=== PATIENT | male | born 1970 | race Hispanic/Latino ===

== ENCOUNTER 2019-06-23 13:40 | Inpatient (IN) | payer MEDICARE, OTHER ==
[~2019-06-23] VITALS: Ht 170.2 cm; Wt 107.3 kg
--- OUTSIDE RECORDS SUMMARY | 2019-06-23 13:42 | XMS REPORT | Clinical Summary ---
Author Author [facility] Organization [facility] Address Unknown Phone Unavailable Care Team Providers Care Insurance Examiner Name Role Phone Stanton Frazier MD PCP Allergies Comments Active Allergy Reactions Severity Noted Date Pt states he woke up combative after receiving Morphine Morphine Nausea And 05/25/2018 Vomiting, Other (See Comments) Hydrocodone-Acetaminophen Nausea And 05/26/2012 Vomiting Medications End Date Status Medication Sig Dispensed Refills Start Date Active aspirin 81 MG EC Take 81 mg by 0 tabletIndications: mouth daily. Awaiting organ transplant status Active amLODIPine (NORVASC) 10 Take by mouth 0 07/05/201 MG tablet daily . 8 Active aspirin-calcium carbonate Take 81 mg by 0 81 mg-300 mg calcium(777 mouth. mg) Tab Active aspirin 81 MG chewable Take 81 mg by 0 07/05/201 tablet mouth daily . 8 Active fluticasone (FLONASE) 50 by Nasal 0 mcg/actuation nasal spray route. 8 Active esomeprazole (NEXIUM) 40 Take 40 mg by 0 07/05/ MG capsule mouth daily . 8 Active sevelamer (RENVELA) 800 Take 3,200 mg 0 03/20/201 mg tablet by mouth 3 8 (three) times daily with meals . Active albuterol HFA (VENTOLIN Inhale 1 puff 0 HFA) 90 mcg/actuation by mouth via 8 inhaler inhaler every 6 (six) hours as needed . Active famotidine (PEPCID) 20 MG Take 20 mg by 0 tablet mouth once at 9 bedtime . Active levocetirizine (XYZAL) 5 Take by 0 11/30/ MG tablet mouth. 9 Active cholecalciferol (VITAMIN Take 1,000 0 D3) 1,000 unit tablet Units by 8 mouth daily . Active loratadine 10 mg Cap Take by mouth 0 daily . 8 Active fluticasone-vilanterol Inhale 1 puff 0 (BREO ELLIPTA) 100-25 by mouth via mcg/dose DsDv inhaler daily. Active folic acid-multivitamins Take 1 tablet 0 (B COMPLEX-VITAMIN by mouth C-FOLIC ACID) 0.8 mg Tab daily. tablet Active ranitidine (ZANTAC) 150 Take 150 mg 0 MG tablet by mouth nightly. Active calcium carbonate (TUMS) Take 3 0 500 mg chewable tablet tablets by mouth once at bedtime. 07/27/2018 Discontinued amLODIPine (NORVASC) 10 Take 10 mg by 0 MG tablet mouth nightly. 07/27/2018 Discontinued lisinopril Take 20 mg by 0 (PRINIVIL,ZESTRIL) 20 MG mouth 2 (two) tablet times daily . 07/27/2018 Discontinued cholecalciferol, vitamin Take 1 0 D3, 2,000 unit Cap capsule by mouth daily. 07/27/2018 Discontinued cloNIDine HCl (CATAPRES) Take 0.1 mg 0 0.1 MG tablet by mouth 2 (two) times daily . 02/01/2019 Discontinued sevelamer (RENVELA) 800 Take 3,200 mg 0 mg tablet by mouth 3 (three) times daily with meals . 02/01/2019 Discontinued acetaminophen (TYLENOL) Take 500 mg 0 500 MG tablet by mouth every 6 (six) hours as needed for Pain. 02/01/2019 Discontinued calcium carbonate (TUMS) Take 3 0 500 mg chewable tablet tablets by mouth nightly. 07/27/2018 Discontinued zolpidem (AMBIEN) 5 MG Take 5 mg by 0 tablet mouth every night as needed for Insomnia. 07/27/2018 Discontinued aspirin 325 MG Take 325 mg 0 tabletIndications: by mouth Hepatic cirrhosis, daily. unspecified hepatic cirrhosis type (HCC) 02/01/2019 Discontinued cholecalciferol, vitamin Take 1,000 0 D3, 1,000 unit Units by capsuleIndications: mouth daily. Awaiting organ transplant status 02/01/2019 Discontinued albuterol HFA (VENTOLIN Inhale 2 0 HFA) 90 mcg/actuation puffs by inhalerIndications: Acute mouth via Asthma Attack inhaler every 6 (six) hours as needed for Wheezing. 07/27/2018 Discontinued gemfibrozil (LOPID) 600 Take 600 mg 0 MG tabletIndications: by mouth 2 Awaiting organ transplant (two) times status daily. 02/01/2019 Discontinued folic acid/vit B complex Take by mouth 0 and C (RENAL VITAMIN daily. ORAL)Indications: Awaiting organ transplant status 02/01/2019 Discontinued fluticasone (FLONASE) 50 1 spray by 0 mcg/actuation nasal Nasal route sprayIndications: daily. Awaiting organ transplant status 02/01/2019 Discontinued loratadine (CLARITIN) 10 Take 10 mg by 0 mg tabletIndications: mouth daily. Awaiting organ transplant status 02/01/2019 Discontinued esomeprazole (NEXIUM) 40 Take 40 mg by 0 MG capsuleIndications: mouth daily. Awaiting organ transplant status 02/01/2019 Discontinued ranitidine HCl (ZANTAC Take by 0 ORAL) mouth. 02/01/2019 Discontinued pantoprazole (PROTONIX) Take 1 tablet 20 tablet 0 20 MG tablet (20 mg total) 8 by mouth daily. 12/17/2018 levoFLOXacin (LEVAQUIN) Take 1 tablet 10 tablet 0 500 MG tablet (500 mg 9 total) by mouth daily for 10 days. Active Problems Problem Noted Date Portal hypertension 04/09/2017 Foot abscess 04/09/2017 Awaiting organ transplant status 01/26/2017 Pre-transplant evaluation for chronic liver disease 05/01/2016 Last Assessment & Plan: He is an acceptable candidate for liver transplant. He will continue with further necessary imaging as indicated for liver transplant. Cancer screening 03/26/2016 Cirrhosis of liver 03/20/2016 Last Assessment & Plan: Cirrhosis diagnosis confirmed by liver biopsy. Likely etiology is NAFLD. MELD 21. Elevated liver enzymes 02/14/2016 Last Assessment & Plan: Patient has mixed hepatocellular and cholestatic pattern of injury. Likely etiology is fatty liver. A comprehensive work up for other etiologies of elevated liver enzymes is recommended. Since he will need clearance for kidney transplant, a liver biopsy will be needed for further assessment. Risks and benefits of the transjugular liver biopsy were reviewed. With splenomegaly, there is concern for more advanced liver disease such as cirrhosis so transhepatic pressure gradients can be done at the same time as the liver biopsy. Patient wishes to proceed. ESRD (end stage renal disease) on dialysis 02/14/2016 Last Assessment & Plan: ESRD secondary to diabetes. He is on HD since 06/2015 on MWF schedule. Will need a liver/kidney transplant combination. HTN (hypertension) 02/14/2016 Last Assessment & Plan: BP controlled on current regimen. 2 gram sodium diet restrictions reviewed. Continue follow up with PCP and Leadership Program Associate. Diabetes mellitus type 2 in obese 02/14/2016 Last Assessment & Plan: Diabetes complicated by ESRD, diabetic foot. Diabetes is a risk factor for fatty liver. Strict diabetes control is recommended. Used to be on insulin, not anymore since ESRD. Continue follow up with PCP. Immunity status testing 02/14/2016 Last Assessment & Plan: All patients with chronic liver disease, regardless of etiology, should be immunized to prevent hepatitis A and hepatitis B if they are not already immune. Serologies suggest no immunity against Hep B. Hep B c Ab was not found so will be added to work up today. If the hep B c Ab is negative, he will need to complete the 3rd dose of the vaccine series. If the hep B c Ab is positive, he will have already had 2 of the hep B vaccines and this should complete his vaccine series. Hep A IgG planned with labs today. NAFLD (nonalcoholic fatty liver disease) 02/14/2016 Last Assessment & Plan: NAFLD suspected based on laboratory data, risk factors for fatty liver and significant family history for fatty liver disease. Risk factor for NAFLD is obesity, diabetes and family history. Strict risk factor modification discussed with the patient. Pre-transplant evaluation for kidney transplant 02/14/2016 Last Assessment & Plan: Patient currently undergoing kidney transplant evaluation. He was referred to hepatology clinic for elevated liver enzyme. Transjugular liver biopsy with measurement of portal hemodynamics is recommended. Further recommendations will follow. Obesity 02/14/2016 Last Assessment & Plan: Body mass index is 32.91 kg/(m^2). Obesity is a risk factor for fatty liver. We recommended a 10% weight loss, which disproportionately decreases visceral fat and can improve hepatic steatosis and steatohepatitis. We recommended a modified Ariadna's diet, substituting vegetables for wheat, corn, potato or rice or foods made from the flours of these carbohydrates. Literature provided. Abnormal liver enzymes 02/14/2016 Abnormal liver diagnostic imaging 02/14/2016 Last Assessment & Plan: US showed normal liver, splenomegaly and no ascites. Patient platelet count is on low normal side. This can be seen in early cirrhosis. A CT scan with triple phase liver protocol for further work up is recommended. Encounters Care Team Description Date Type Vice AdmiralMadeline Tafoya RN Awaiting organ transplant status (Primary Dx); Hepatic cirrhosis, unspecified hepatic cirrhosis type, unspecified whether ascites present (HCC); Cancer screening; ESRD (end stage renal disease) on dialysis (HCC) 06/20/2019 Orders Only Transplant Hepatology Madeline Tafoya RN Follow-up 06/20/2019 Telephone Transplant Hepatology Willa Saunders Appointment (Called to schedule meld labs due now. Pt said he is going to find out if there is a lab close to him and call me back to get orders sent. Scheduled 10/25 clinic appt. wpt Itinerary mailed.) 06/16/2019 Telephone Transplant Hepatology Willa Saunders 06/16/2019 Telephone Transplant Hepatology Viktor Taylor MD Osteoporosis, unspecified osteoporosis type, unspecified pathological fracture presence; Awaiting organ transplant status 05/03/2019 Hospital Encounter Viktor Taylor MD Khaderi, Saira Aijaz, MD Awaiting organ transplant status (Primary Dx); Hepatic cirrhosis, unspecified hepatic cirrhosis type, unspecified whether ascites present (HCC); Portal hypertension (HCC); ESRD (end stage renal disease) on dialysis (HCC); Diabetes mellitus type 2 in obese (HCC); Immunity status testing; Class 2 obesity due to excess calories with body mass index (BMI) of 37.0 to 37.9 in adult, unspecified whether serious comorbidity present 05/03/2019 Follow-Up Transplant Hepatology Stanton Frazier II, MD 05/03/2019 Outside Orders Willa Saunders Appointment (Called to let pt know i've added bone density appt on 05/03 with the clinic appt. I was unable to leave a message voicemail not set up. Itinerary mailed.) 04/21/2019 Telephone Central Scheduling Madeline Tafoya RN Awaiting organ transplant status; Cirrhosis of liver without ascites, unspecified hepatic cirrhosis type (HCC) 03/28/2019 Orders Only Transplant Hepatology Willa Saunders Appointment (Called to schedule labs for meld update. Pt said he would call with dates but it would be in next few weeks because he has several dr's appts.) 03/09/2019 Telephone Transplant Hepatology Madeline Tafoya RN Osteoporosis, unspecified osteoporosis type, unspecified pathological fracture presence (Primary Dx); Awaiting organ transplant status 02/23/2019 Orders Only Transplant Hepatology Madeline Tafoya RN Follow-up 02/23/2019 Telephone Transplant Hepatology Chago Hernadez MD Awaiting organ transplant status; Cancer screening; Cirrhosis of liver without ascites, unspecified hepatic cirrhosis type (HCC) 02/01/2019 Hospital Radiology Encounter Chago Hernadez MD Claudia, Viktor Reeder MD Anemia, unspecified type (Primary Dx); Awaiting organ transplant status 02/01/2019 Follow-Up Transplant Hepatology Meenakshi Echavarria MA 02/01/2019 Abstract Hepatology Willa Saunders Appointment (Confirmed 02/01 appt w/pt.) 01/31/2019 Telephone Transplant Hepatology Willa Saunders Appointment (Scheduled 02/01 [facility] f/u appt in tx clinic, mri & Feghali appt @ 2 pm w.pt. Itinerary mailed.) 01/10/2019 Telephone Transplant Hepatology Madeline Tafoya RN Awaiting organ transplant status (Primary Dx); Cancer screening; Cirrhosis of liver without ascites, unspecified hepatic cirrhosis type (HCC) 01/03/2019 Orders Only Transplant Hepatology Madeline Tafoya RN Awaiting organ transplant status; Cancer screening; Cirrhosis of liver without ascites, unspecified hepatic cirrhosis type (HCC) 01/03/2019 Orders Only Transplant Hepatology Madeline Tafoya RN Awaiting organ transplant status (Primary Dx); Cancer screening; Cirrhosis of liver without ascites, unspecified hepatic cirrhosis type (HCC) 01/03/2019 Orders Only Transplant Hepatology Willa Saunders Appointment (Called to schedule labs for meld update. Pt said he would try and schedule appt tomorrow but he will call me back once appt is scheduled.) 12/27/2018 Telephone Transplant Hepatology Willa Saunders Appointment (Called to schedule meld labs due now. Pt said he recently moved and is unable to schedule transportation until new address is updated in transport [employer] computer. Pt will call if he is able to get labs this wk.) 12/20/2018 Telephone Transplant Hepatology Willa Saunders Appointment (Called to schedule labs for meld update pt said he would call me back he is going to try and get labs drawn when he get his dialysis.) 12/15/2018 Telephone Transplant Hepatology Yeison Collins MD Complication of vascular access for dialysis, initial encounter (Primary Dx); Essential hypertension; Cellulitis of right upper extremity; ESRD (end stage renal disease) (HCC) 12/07/2018 Emergency Emergency Medicine Daniella Odell MD Awaiting organ transplant status 12/07/2018 Hospital Radiology Encounter Daniella Odell MD Awaiting organ transplant status; Osteoporosis, unspecified osteoporosis type, unspecified pathological fracture presence 12/07/2018 Hospital Encounter Daniella Odell MD Jalal, Prasun Kumar, MD 12/07/2018 Follow-Up Transplant Hepatology 12/07/2018 Travel Madeline Tafoya RN Follow-up 12/06/2018 Telephone Transplant Hepatology Willa Saunders Appointment (Called to confirm 12/07 appts there was no answer and i was unable to leave message because voicemail is not set up.) 12/06/2018 Telephone Transplant Hepatology Daniella Odell MD 12/06/2018 Outside Orders Willa aSunders Appointment (Called to schedule labs for meld update due now unable to leave message voicemail not set up.) 11/18/2018 Telephone Transplant Hepatology Nargis Jaquez, AKILA Awaiting transplantation of kidney (Primary Dx) 11/13/2018 Orders Only Transplant Willa Saunders Appointment (Calling to schedule labs for meld update unable to leave message on voicemail.) 11/01/2018 Telephone Transplant Hepatology Willa Saunders Appointment (Called pt to schedule labs for meld update. Pt apologized for not getting his labs and said he would call [facility] to schedule appt this week and call me back with date.) 10/19/2018 Telephone Transplant Hepatology Willa Saunders Appointment (Called pt to schedule labs for meld update pt said he's not sure when he'll be able to go but he will call the morning before he goes to lab so that we can release lab orders.) 10/04/2018 Telephone Transplant Hepatology Willa Saunders Appointment (Called to schedule labs for meld update due now. Unable to leave voicemail.) 09/29/2018 Telephone Transplant Hepatology Willa Saunders 09/29/2018 Telephone Transplant Hepatology Willa Saunders Appointment (Calling to schedule labs for meld update due now. Voicemail not available.) 09/20/2018 Telephone Transplant Hepatology Willa Saunders Appointment (Scheduled 12/07 clinic, ct & bmds appts w/pt & 1:45 Dr Ferguson appt. Itinerary mailed.) 09/17/2018 Telephone Transplant Hepatology Willa Saunders Appointment (Calling to schedule meld labs due now & CT, echo, BMDS , appt with Dr. Ferguson and appt with liver team end Nov. Unable to leave message voicemail not set up.) 09/13/2018 Telephone Transplant Hepatology Willa Saunders Appointment (Pt called and said he has not been able to schedule his labs at [facility] he said he needs to schedule his appt online but is not able to do it. I asked pt to call and let me know when he schedules so i can release orders.) 08/30/2018 Telephone Transplant Hepatology Willa Saunders Appointment (Pt called and said he has not been able to schedule his labs at [facility] he said he needs to schedule his appt online but is not able to do it. I asked pt to call and let me know when he schedules so i can release orders.) 08/30/2018 Telephone Transplant Hepatology Willa Saunders Appointment (Called pt to schedule meld labs pt said he would go to [facility] on 08/26.) 08/23/2018 Telephone Transplant Hepatology Madeline Tafoya, AKILA Awaiting organ transplant status (Primary Dx); Osteoporosis, unspecified osteoporosis type, unspecified pathological fracture presence 08/15/2018 Orders Only Transplant Hepatology Nathaniel Barrientos Jr., MD Gastrointestinal hemorrhage, unspecified gastrointestinal hemorrhage type (Primary Dx); Anemia, unspecified type; Cirrhosis of liver without ascites, unspecified hepatic cirrhosis type (HCC); ESRD (end stage renal disease) on dialysis (HCC); Essential hypertension; Diabetes mellitus type 2 in obese (HCC) 07/27/2018 Emergency Emergency Medicine Viktor Taylor MD Mindikoglu, Ayse Leyla, MD MPH Cirrhosis of liver without ascites, unspecified hepatic cirrhosis type (HCC) (Primary Dx); Awaiting organ transplant status; NAFLD (nonalcoholic fatty liver disease); Hematochezia; Esophageal varices without bleeding, unspecified esophageal varices type (HCC); Screening for malignant neoplasm; ESRD on hemodialysis (HCC); Immunity status testing; Immunization counseling 07/27/2018 Follow-Up Transplant Hepatology Willa Saunders Appointment (Confirmed 07/27 appt w/pt.) 07/26/2018 Telephone Transplant Hepatology Stanton Frazier II, MD Awaiting organ transplant status 07/01/2018 Orders Only Lab Willa Saunders Appointment (Confirmed 07/01 lab appt w/pt.) 06/29/2018 Telephone Transplant Hepatology Willa Saunders Appointment (Called pt to confirm 07/01 lab appt (pt has feghali appt on that day) unable to leave message vm not set up.) 06/28/2018 Telephone Transplant Hepatology Willa Saunders Appointment (Scheduled 07/01 lab appt unable to contact patient voicemail not set up. Itinerary mailed to pt.) 06/25/2018 Telephone Transplant Hepatology Madeline Tafoya RN Awaiting organ transplant status (Primary Dx) 06/24/2018 Orders Only Transplant Hepatology after 06/22/2018 Immunizations Name Dates Previously Given Next Due Hepatitis A 08/26/2016 Hepatitis B 08/26/2016 Family History Medical History Relation Name Comments Diabetes Father Heart disease Father Liver disease Father Diabetes Mother Heart disease Mother Kidney disease Mother Relation Name Status Comments Father Mother Social History Date Tobacco Use Types Packs/Day Years Used Quit: 02/13/2006 Former Smoker Cigarettes Smokeless Tobacco: Never Used Tobacco Cessation: Counseling Given: No Alcohol Use Drinks/Week oz/Week Comments No States he quit drinking Sex Assigned at Date Recorded Not on file Industry Job Start Date Occupation Not on file Not on file Not on file Travel End Travel History Travel Start No recent travel history available. Last Filed Vital Signs Time Taken Vital Sign Reading 05/03/2019 8:27 AM CDT Blood Pressure 160/79 05/03/2019 8:27 AM CDT Pulse 76 05/03/2019 8:27 AM CDT Temperature 36.9 C (98.4 F) 05/03/2019 8:27 AM CDT Respiratory Rate 18 05/03/2019 8:27 AM CDT Oxygen Saturation 99% - Inhaled Oxygen - Concentration 05/03/2019 8:27 AM CDT Weight 107.6 kg (237 lb 4.8 oz) 05/03/2019 8:27 AM CDT Height 170.2 cm (5' 7") 05/03/2019 8:27 AM CDT Body Mass Index 37.17 Plan of Treatment Care Team Description Date Type Specialty 10/25/2019 Follow-Up Transplant Hepatology Health Maintenance Due Date Last Done Comments HEMOGLOBIN A1C 11/02/2019 05/03/2019, 05/25/2018, 12/11/2015 Procedures Comments Procedure Name Priority Date/Time Associated Diagnosis XR DXA BONE DENSITY STUDY Routine 05/03/2019 Osteoporosis, unspecified 10:15 AM CDT osteoporosis type, unspecified pathological fracture presence Awaiting organ transplant status CBC W/PLT COUNT & AUTO Routine 05/03/2019 Awaiting organ transplant DIFFERENTIAL 9:41 AM CDT status Hepatic cirrhosis, unspecified hepatic cirrhosis type, unspecified whether ascites present (HCC) LIPID PANEL Routine 05/03/2019 Awaiting organ transplant 9:41 AM CDT status Hepatic cirrhosis, unspecified hepatic cirrhosis type, unspecified whether ascites present (HCC) Diabetes mellitus type 2 in obese (HCC) Class 2 obesity due to excess calories with body mass index (BMI) of 37.0 to 37.9 in adult, unspecified whether serious comorbidity present HEMOGLOBIN A1C Routine 05/03/2019 Awaiting organ transplant 9:41 AM CDT status Hepatic cirrhosis, unspecified hepatic cirrhosis type, unspecified whether ascites present (HCC) Diabetes mellitus type 2 in obese (HCC) Class 2 obesity due to excess calories with body mass index (BMI) of 37.0 to 37.9 in adult, unspecified whether serious comorbidity present BILIRUBIN, DIRECT Routine 05/03/2019 Awaiting organ transplant 9:41 AM CDT status Hepatic cirrhosis, unspecified hepatic cirrhosis type, unspecified whether ascites present (HCC) PROTHROMBIN TIME/INR Routine 05/03/2019 Awaiting organ transplant 9:41 AM CDT status Hepatic cirrhosis, unspecified hepatic cirrhosis type, unspecified whether ascites present (HCC) CBC W/PLT COUNT & AUTO Routine 05/03/2019 Awaiting organ transplant DIFFERENTIAL 9:41 AM CDT status Hepatic cirrhosis, unspecified hepatic cirrhosis type, unspecified whether ascites present (HCC) COMPREHENSIVE METABOLIC Routine 05/03/2019 Awaiting organ transplant PANEL 9:41 AM CDT status Hepatic cirrhosis, unspecified hepatic cirrhosis type, unspecified whether ascites present (HCC) COMPREHENSIVE METABOLIC Routine 03/29/2019 Awaiting organ transplant PANEL 9:02 AM CDT status Cirrhosis of liver without ascites, unspecified hepatic cirrhosis type (HCC) CBC W/PLT COUNT & AUTO Routine 03/29/2019 Awaiting organ transplant DIFFERENTIAL 9:02 AM CDT status Cirrhosis of liver without ascites, unspecified hepatic cirrhosis type (HCC) PROTHROMBIN TIME/INR Routine 03/29/2019 Awaiting organ transplant 9:02 AM CDT status Cirrhosis of liver without ascites, unspecified hepatic cirrhosis type (HCC) BILIRUBIN, DIRECT Routine 03/29/2019 Awaiting organ transplant 9:02 AM CDT status Cirrhosis of liver without ascites, unspecified hepatic cirrhosis type (HCC) CT ABDOMEN WITH/WITHOUT Routine 02/01/2019 Awaiting organ transplant CONTRAST 12:06 PM CDT status Cancer screening Cirrhosis of liver without ascites, unspecified hepatic cirrhosis type (HCC) CBC W/PLT COUNT & AUTO Routine 02/01/2019 Awaiting organ transplant DIFFERENTIAL 11:40 AM CDT status FERRITIN Routine 02/01/2019 Awaiting organ transplant 11:40 AM CDT status Anemia, unspecified type IRON, TIBC, % SAT. Routine 02/01/2019 Awaiting organ transplant (WITHOUT FERRITIN) 11:40 AM CDT status Anemia, unspecified type BILIRUBIN, DIRECT Routine 02/01/2019 Awaiting organ transplant 11:40 AM CDT status PROTHROMBIN TIME/INR Routine 02/01/2019 Awaiting organ transplant 11:40 AM CDT status CBC W/PLT COUNT & AUTO Routine 02/01/2019 Awaiting organ transplant DIFFERENTIAL 11:40 AM CDT status COMPREHENSIVE METABOLIC Routine 02/01/2019 Awaiting organ transplant PANEL 11:40 AM CDT status COMPREHENSIVE METABOLIC Routine 01/04/2019 Awaiting organ transplant PANEL 8:36 AM CAROUSEL OPERATOR status Cirrhosis of liver without ascites, unspecified hepatic cirrhosis type (HCC) CBC W/PLT COUNT & AUTO Routine 01/04/2019 Awaiting organ transplant DIFFERENTIAL 8:36 AM CAROUSEL OPERATOR status Cirrhosis of liver without ascites, unspecified hepatic cirrhosis type (HCC) PROTHROMBIN TIME/INR Routine 01/04/2019 Awaiting organ transplant 8:36 AM CAROUSEL OPERATOR status Cirrhosis of liver without ascites, unspecified hepatic cirrhosis type (HCC) BILIRUBIN, DIRECT Routine 01/04/2019 Awaiting organ transplant 8:36 AM CAROUSEL OPERATOR status Cirrhosis of liver without ascites, unspecified hepatic cirrhosis type (HCC) ALPHA FETOPROTEIN (AFP), Routine 01/04/2019 Awaiting organ transplant TUMOR MARKER 8:36 AM CAROUSEL OPERATOR status Cancer screening Cirrhosis of liver without ascites, unspecified hepatic cirrhosis type (HCC) CBC W/PLT COUNT & AUTO STAT 12/07/2018 DIFFERENTIAL 2:03 PM CAROUSEL OPERATOR PT/APTT STAT 12/07/2018 2:03 PM CAROUSEL OPERATOR BASIC METABOLIC PANEL (7) STAT 12/07/2018 2:03 PM CAROUSEL OPERATOR CBC W/PLT COUNT & AUTO STAT 12/07/2018 DIFFERENTIAL 2:03 PM CAROUSEL OPERATOR BLOOD CULTURE STAT 12/07/2018 2:03 PM CAROUSEL OPERATOR CBC W/PLT COUNT & AUTO STAT 07/27/2018 DIFFERENTIAL 2:53 PM CDT PROTHROMBIN TIME/INR STAT 07/27/2018 2:53 PM CDT CBC W/PLT COUNT & AUTO STAT 07/27/2018 DIFFERENTIAL 2:53 PM CDT LIPASE STAT 07/27/2018 2:53 PM CDT HEPATIC FUNCTION PANEL STAT 07/27/2018 2:53 PM CDT BASIC METABOLIC PANEL (7) STAT 07/27/2018 2:53 PM CDT AMYLASE STAT 07/27/2018 2:53 PM CDT CBC W/PLT COUNT & AUTO Routine 07/01/2018 Awaiting organ transplant DIFFERENTIAL 2:06 PM CDT status BILIRUBIN, DIRECT Routine 07/01/2018 Awaiting organ transplant 2:06 PM CDT status PROTHROMBIN TIME/INR Routine 07/01/2018 Awaiting organ transplant 2:06 PM CDT status CBC W/PLT COUNT & AUTO Routine 07/01/2018 Awaiting organ transplant DIFFERENTIAL 2:06 PM CDT status COMPREHENSIVE METABOLIC Routine 07/01/2018 Awaiting organ transplant PANEL 2:06 PM CDT status after 06/22/2018 Results * XR dxa bone density study (05/03/2019 10:15 AM CDT) Specimen Narrative Performed At FINAL REPORT [facility] Bone mineral density study 05/03/2019. HISTORY PROVIDED: History of osteoporosis, on liver and kidney transplant list. COMPARISON: 05/15/2016 FINDINGS: Evaluation of the left and right femoral necks and lumbar spine was performed utilizing a bone densitometer. Data reflect young adult matched T-scores and age-matched Z scores. IMPRESSION: The left femoral neck bone mineral density is 0.611gm/cm2, the T-score is -3.5, and the Z-score is -3.4. This is suggestive of osteoporosis. The right femoral neck total bone mineral density is 0.727gm/cm2, the T-score is -2.6, and the Z-score is -2.5. This is suggestive of osteoporosis. The lumbar spine total bone mineral density is 1.004gm/cm2, the T-score is -1.8, and the Z-score is -2.3. This is suggestive of osteopenia. Compared to the prior exam, the bone mineral density of the lumbar spine demonstrates a 6.3% decrease.The bone density of the left femoral neck demonstrates a 11.6% decrease.The bone mineral density of the right femoral neck demonstrates a 3.1% decrease. Signed: Brendan Inman MD Report Verified Date/Time:05/03/2019 10:38:27 Reading Location: [facility] Procedure Note Interface, External Ris In - 05/03/2019 10:40 AM CDT FINAL REPORT Bone mineral density study 05/03/2019. HISTORY PROVIDED: History of osteoporosis, on liver and kidney transplant list. COMPARISON: 05/15/2016 FINDINGS: Evaluation of the left and right femoral necks and lumbar spine was performed utilizing a bone densitometer. Data reflect young adult matched T-scores and age-matched Z scores. IMPRESSION: The left femoral neck bone mineral density is 0.611gm/cm2, the T-score is -3.5, and the Z-score is -3.4. This is suggestive of osteoporosis. The right femoral neck total bone mineral density is 0.727gm/cm2, the T-score is -2.6, and the Z-score is -2.5. This is suggestive of osteoporosis. The lumbar spine total bone mineral density is 1.004gm/cm2, the T-score is -1.8, and the Z-score is -2.3. This is suggestive of osteopenia. Compared to the prior exam, the bone mineral density of the lumbar spine demonstrates a 6.3% decrease. The bone density of the left femoral neck demonstrates a 11.6% decrease. The bone mineral density of the right femoral neck demonstrates a 3.1% decrease. Signed: Brendan Inman MD Report Verified Date/Time: 05/03/2019 10:38:27 Reading Location: [facility] Performing Organization Address City/State/Zipcode Phone Number [facility] * CBC with platelet count + automated diff (05/03/2019 9:41 AM CDT) Only the most recent of 5 results within the time period is included. WBC 5.3 3.5 - 10.5 K/L [facility] RBC 3.11 (L) 4.63 - 6.08 M/L [facility] Hemoglobin 10.3 (L) 13.7 - 17.5 GM/DL [facility] Hematocrit 28.9 (L) 40.1 - 51.0 % [facility] MCV 92.9 (H) 79.0 - 92.2 fL [facility] MCH 33.1 (H) 25.7 - 32.2 pg [facility] MCHC 35.6 32.3 - 36.5 GM/DL [facility] RDW 14.9 (H) 11.6 - 14.4 % [facility] Platelets 87 (L) 150 - 450 K/CU MM [facility] MPV 10.4 9.4 - 12.4 fL [facility] nRBC 0 0 - 0 /100 WBC [facility] % Neutros 64 % [facility] % Lymphs 21 % [facility] % Monos 9 % [facility] % Eos 5 % [facility] % Baso 1 % [facility] # Neutros 3.41 1.78 - 5.38 K/L [facility] # Lymphs 1.14 (L) 1.32 - 3.57 K/L [facility] # Monos 0.46 0.30 - 0.82 K/L [facility] # Eos 0.25 0.04 - 0.54 K/L [facility] # Baso 0.05 0.01 - 0.08 K/L [facility] Immature 0 0 - 1 % [facility] Granulocytes-Relative [facility] Specimen Blood Performing Organization Address City/[facility] Cent[facility] Phone Number [address] [address] [facility] * Prothrombin time/INR (05/03/2019 9:41 AM CDT) Only the most recent of 6 results within the time period is included. Protime 15.0 (H) 11.9 - 14.2 seconds [facility] INR 1.2 <=5.9 [facility] Specimen Blood Narrative Performed At Effective 04/06/2019: PT Reference Range Change [facility] New: 11.9-14.2Previous: 11.7-14.7 [facility] RECOMMENDED COUMADIN/WARFARIN INR THERAPY RANGES STANDARD DOSE: 2.0-3.0Includes: PROPHYLAXIS for venous thrombosis, systemic embolization; TREATMENT for venous thrombosis and/or pulmonary embolus. HIGH RISK: Target INR is 2.5-3.5 for patients wiht mechanical heart valves. Performing Organization Address [facility] Centercopr Phone Number [address] [address] [phone] [place] [address] * Hemoglobin A1c (05/03/2019 9:41 AM CDT) Hemoglobin A1C 6.3 (H) 4.3 - 6.1 % [facility] Specimen Blood Performing Organization Address City/[facility] Centercode Phone Number [address] [address] [facility] * Bilirubin, direct (05/03/2019 9:41 AM CDT) Only the most recent of 5 results within the time period is included. Bilirubin, Direct 0.4 0.1 - 0.5 mg/dL [facility] Specimen Blood Performing Organization Address [facility] Centercode Phone Number [address] [address] [facility] * Lipid panel (05/03/2019 9:41 AM CDT) Triglycerides 160 mg/dL [facility] Cholesterol 139 mg/dL [facility] HDL 34 mg/dL [facility] LDL Calculated 73 mg/dL [facility] Specimen Blood Narrative Performed At Triglyceride Reference Range: [facility] Low Risk <150 [facility] [id number] High Risk 200-499 Very High Risk>=500 Cholesterol Reference Range: Low Risk <200 [id number] High Risk>240 HDL Cholesterol Reference Range: Low Risk >=60 High Risk <40 LDL Cholesterol Reference Range: Optimal<100 Near [id number] [id number] Oome178-254 Very High >=190 Performing Organization Address City/State/Zipcode Phone Number [facility] [address] [place] [address] [facility] * Comprehensive metabolic panel (05/03/2019 9:41 AM CDT) Only the most recent of 5 results within the time period is included. Protein, Total 7.5 6.0 - 8.3 gm/dL [facility] Albumin 3.9 3.5 - 5.0 g/dL [facility] Alkaline Phosphatase 219 (H) 40 - 150 U/L [facility] Total Bilirubin 0.9 0.2 - 1.2 mg/dL [facility] Sodium 137 136 - 145 meq/L [facility] Potassium 4.6 3.5 - 5.1 meq/L [facility] Chloride 102 98 - 107 meq/L [facility] CO2 24 22 - 29 meq/L [facility] BUN 33 (H) 7 - 21 mg/dL [facility] Creatinine 8.34 (H) 0.57 - 1.25 mg/dL [facility] Glucose 124 (H) 70 - 105 mg/dL [facility] Calcium 8.8 8.4 - 10.2 mg/dL [facility] AST 29 5 - 34 U/L [facility] ALT 17 6 - 55 U/L [facility] EGFR 7Comment: ESTIMATED GFR IS NOT mL/min/1.73 sq m [facility] ACCURATE CREATININE [facility] CLEARANCE IN PREDICTING GLOMERULAR FILTRATION RATE. ESTIMATED GFR IS NOT APPLICABLE FOR DIALYSIS PATIENTS. Specimen Blood Performing Organization Address City/State/Zipcode Phone Number [facility] [address] [place] [address] [facility] * CBC with platelet count + automated diff (03/29/2019 9:02 AM CDT) Only the most recent of 2 results within the time period is included. WBC 4.6 3.8 - 10.8 Thousand/uL [facility] RBC 3.49 (L) 4.20 - 5.80 Million/uL [facility] Hemoglobin 11.0 (L) 13.2 - 17.1 g/dL [facility] Hematocrit 32.0 (L) 38.5 - 50.0 % [facility] MCV 91.7 80.0 - 100.0 fL [facility] MCH 31.5 27.0 - 33.0 pg [facility] MCHC 34.4 32.0 - 36.0 g/dL [facility] RDW 14.9 11.0 - 15.0 % [facility] Platelets 87 (L) 140 - 400 Thousand/uL [facility] MPV 11.1 7.5 - 12.5 fL [facility] # Neutros 3,077 1,500 - 7,800 cells/uL [facility] # Lymphs 994 850 - 3,900 cells/uL [facility] # Monos 299 200 - 950 cells/uL [facility] # Eos 179 15 - 500 cells/uL [facility] # Baso 51 0 - 200 cells/uL [facility] % Neutros 66.9 % [facility] % Lymphs 21.6 % [facility] % Monos 6.5 % [facility] % Eos 3.9 % [facility] % Baso 1.1 % [facility] Specimen Blood Narrative Performed At FASTING:YES [facility] FASTING: YES Resulting Agency Comment Performing Organization Information: Site ID: [id number] Name: [facility] Address: [address] [place] [address] Director: Steph Garcia Performing Organization Address City/State/Zipcode Phone Number [place] [address] [place] [address] [place] * CT abdomen with and without contrast liver prctocol-triple phase (02/01/2019 12:06 PM CDT) Specimen Narrative Performed At FINAL REPORT [employer] [facility] RIS ABDOMINAL CT DATED 02/01/2019 CLINICAL INFORMATION:cirrhosis, ESRD, on liver and kidney transplant list TECHNIQUE:Axial images of the abdomen were obtained from diaphragm to the upper pelvis with and without intravenous contrast. This exam was performed according to our departmental dose-optimization program, which includes automated exposure control, adjustment of the mA and/or kV according to patient size and/or use of interactive reconstruction technique. COMMENT: Liver is cirrhotic in appearance with irregular margins. No abnormal enhancement or focal mass is seen in the liver. Spleen is enlarged measuring 18.1 cm in length. The splenic, spleen mesenteric, portal, and hepatic veins are patent. Main portal vein measures 19 mm in diameter. No portal vein thrombosis is seen. There is recannulization periumbilical vein. Gallbladder is contracted. No gallstone or biliary dilatation is noted. Pancreas and adrenals are unremarkable. Both kidneys are atrophic suggestive of medical renal disease. The small and large bowel are unremarkable. Appendix is not visualized. Atherosclerotic calcification is seen in the abdominal aorta, inferior mesenteric, and bilateral arteries. No mass, adenopathy or ascites is present. IMPRESSION: 1. Cirrhosis with splenomegaly and portal hypertension. 2. No suspicious hepatic mass. 3. Atrophic kidneys suggestive of medical renal disease. Signed: Felipe Luz MD Report Verified Date/Time:02/01/2019 15:39:07 Reading Location: [address] Radiology Reading Room Procedure Note Interface, External Ris In - 02/01/2019 3:41 PM CDT FINAL REPORT ABDOMINAL CT DATED 02/01/2019 CLINICAL INFORMATION: cirrhosis, ESRD, on liver and kidney transplant list TECHNIQUE: Axial images of the abdomen were obtained from diaphragm to the upper pelvis with and without intravenous contrast. This exam was performed according to our departmental dose-optimization program, which includes automated exposure control, adjustment of the mA and/or kV according to patient size and/or use of interactive reconstruction technique. COMMENT: Liver is cirrhotic in appearance with irregular margins. No abnormal enhancement or focal mass is seen in the liver. Spleen is enlarged measuring 18.1 cm in length. The splenic, spleen mesenteric, portal, and hepatic veins are patent. Main portal vein measures 19 mm in diameter. No portal vein thrombosis is seen. There is recannulization periumbilical vein. Gallbladder is contracted. No gallstone or biliary dilatation is noted. Pancreas and adrenals are unremarkable. Both kidneys are atrophic suggestive of medical renal disease. The small and large bowel are unremarkable. Appendix is not visualized. Atherosclerotic calcification is seen in the abdominal aorta, inferior mesenteric, and bilateral arteries. No mass, adenopathy or ascites is present. IMPRESSION: 1. Cirrhosis with splenomegaly and portal hypertension. 2. No suspicious hepatic mass. 3. Atrophic kidneys suggestive of medical renal disease. Signed: Felipe Luz MD Report Verified Date/Time: 02/01/2019 15:39:07 Reading Location: [address] Radiology Reading Room Performing Organization Address City/[facility] Phone Number R[facility] * Iron, TIBC, % sat. (without ferritin) (02/01/2019 11:40 AM CDT) Iron 65.0 40.0 - 160.0 ug/dL [facility] TIBC 265 250 - 450 ug/dL [facility] Iron % Saturation 25 20 - 55 % [facility] Specimen Blood Performing Organization Address City/[facility]/Zipcode Phone Number [facility] [address] [place] [address] [facility] * Ferritin (02/01/2019 11:40 AM CDT) Ferritin 488 (H) 5 - 275 ng/mL [facility] Specimen Blood Performing Organization Address City/[facility]/Zipcode Phone Number [facility] [address] [place] [address] [facility] * Alpha fetoprotein (AFP), tumor marker (01/04/2019 8:36 AM CAROUSEL OPERATOR) Alpha-Fetoprotein 3.7 <6.1 ng/mL [facility] Comment: This test was performed using the Katty [place] chemiluminescent method. Values obtained from different assay methods cannot be used interchangeably. AFP levels, regardless of value, should not be interpreted as absolute evidence of the presence or absence of disease. Specimen Blood Resulting Agency Comment Performing Organization Information: Site ID: [id number] Name: [facility] Address: [address] [place] [id number] Director: Dr. Oliverio Martinez Performing Organization Address City/[facility] Centercode Phone Number [place] [phone] [place] [address] [facility] * PT/aPTT (12/07/2018 2:03 PM CAROUSEL OPERATOR) Protime 14.9 (H) 11.7 - 14.7 seconds [facility] INR 1.2 <=5.9 [facility] PTT 44.0 (H) 22.5 - 36.0 seconds [facility] Specimen Blood Narrative Performed At RECOMMENDED COUMADIN/WARFARIN INR THERAPY RANGES [facility] STANDARD DOSE: 2.0 - 3.0 Includes: PROPHYLAXIS for venous thrombosis, [facility] systemic embolization; TREATMENT for venous thrombosis and/or pulmonary embolus. HIGH RISK: Target INR is 2.5-3.5 for patients with mechanical heart valves. Performing Organization Address City/[facility]/Zipcode Phone Number [facility] [address] [place] [address] [facility] * Blood culture (12/07/2018 2:03 PM CAROUSEL OPERATOR) Result No growth in 5 days [facility] Specimen Blood Performing Organization Address [facility]/Zipcode Phone Number [facility] [address] [place] [address] [facility] * Basic metabolic panel (Na, K+, Cl, CO2, Glu, Ca, BUN, Cr) (12/07/2018 2:03 PM CAROUSEL OPERATOR) Only the most recent of 2 results within the time period is included. Sodium 141 136 - 145 meq/L [facility] Potassium 4.8 3.5 - 5.1 meq/L [facility] Chloride 104 98 - 107 meq/L [facility] CO2 27 22 - 29 meq/L [facility] BUN 26 (H) 7 - 21 mg/dL [facility] Creatinine 8.10 (H) 0.57 - 1.25 mg/dL [facility] Glucose 92 70 - 105 mg/dL [facility] Calcium 9.4 8.4 - 10.2 mg/dL [facility] EGFR Comment: INSUFFICIENT CLINICAL mL/min/1.73 sq m [facility] DATA TO CALCULATE ESTIMATED [facility] GFR. Specimen Blood Performing Organization Address City/[facility]/Zipcode Phone Number [address] * Lipase (07/27/2018 2:53 PM CDT) Lipase 63 8 - 78 U/L [facility] Specimen Blood Performing Organization Address City/[facility] Phone Number [address] * Amylase (07/27/2018 2:53 PM CDT) Amylase 81 25 - 125 U/L [facility] Specimen Blood Performing Organization Address City/[facility]/Zipcode Phone Number [address] * Hepatic function panel (07/27/2018 2:53 PM CDT) Protein, Total 7.8 6.0 - 8.3 gm/dL [facility] Albumin 3.9 3.5 - 5.0 g/dL [facility] Total Bilirubin 0.7 0.2 - 1.2 mg/dL [facility] Bilirubin, Direct 0.3 0.1 - 0.5 mg/dL [facility] Alkaline Phosphatase 190 (H) 40 - 150 U/L [facility] AST 27 5 - 34 U/L [facility] ALT 14 6 - 55 U/L [facility] Specimen Blood Performing Organization Address City/State/Zipcode Phone Number [facility] [address] [place] [address] [facility] after 06/22/2018 Insurance Payer Benefit Subscriber ID Type Phone Address Plan / Group MEDICARE MEDICARE A xxxxxxxxxxx Medicare B MEDICAID - MEDICAID [facility] [place] [facility] xxxxxxxxx Medicaid CARE COMM STAR Contracted PLAN Advance Directives Patient has advance care planning documents, and code status on file. For more i nformation, please contact: [facility] [address] [place], [place] [id number] Date Inactivated Comments Code Status Date Activated 03/05/2016 8:04 AM Full Code 03/04/2016 6:39 PM This code status was determined by: Patient
--- OUTSIDE RECORDS SUMMARY | 2019-06-23 13:44 | XMS REPORT ---
Author Author [facility] Address Unknown Phone Unavailable Care Team Providers Care Logistic Manager Name Role Phone Varinder AGGARWAL Unavailable Unavailable SONA WHARTON Unavailable Unavailable BEERFLOR Tarango Unavailable Unavailable PIPER, N YULIANA Unavailable Unavailable Ezeanuna, U Monitor Unavailable Unavailable FELIPE LAZAR Unavailable Unavailable Brendan Mireles Unavailable Unavailable Ning DURANT Unavailable Unavailable MELANIE, SUZIE DOMINIQUE Unavailable Unavailable Justin Mccallum Unavailable Unavailable Sol VILLELA Unavailable Unavailable Sol ROJO Unavailable Unavailable PARSDorian, E WILSON Unavailable Unavailable CHICA STEWART Unavailable Unavailable Keely Zhang Unavailable Unavailable Festus Maradiaga Unavailable Unavailable NURY VAZQUEZ Unavailable Unavailable JOSÉ MIGUEL GARCIA Unavailable Unavailable Problems This patient has no known problems. Allergies, Adverse Reactions, Alerts This patient has no known allergies or adverse reactions. Medications This patient has no known medications. Results Test Description Test Time Test Comments Text Results Atomic Results Result Comments HEMOGLOBIN A1C 2019-05-03 13:03:00 HEMOGLOBIN A1C (BEAKER) (test obxd=582) 6.3 % 4.3-6.1 COMPREHENSIVE METABOLIC [id number] 11:44:00* Test Item Value Reference Range Comments TOTAL PROTEIN (BEAKER) (test tjio=902) 7.5 gm/dL 6.0-8.3 ALBUMIN (BEAKER) (test ysvx=3420) 3.9 g/dL 3.5-5.0 ALKALINE PHOSPHATASE (BEAKER) (test vujx=375) 219 U/L 40-150 BILIRUBIN TOTAL (BEAKER) (test pqrd=400) 0.9 mg/dL 0.2-1.2 SODIUM (BEAKER) (test cdhf=832) 137 meq/L 136-145 POTASSIUM (BEAKER) (test igdo=083) 4.6 meq/L 3.5-5.1 CHLORIDE (BEAKER) (test flrq=694) 102 meq/L 98-107 CO2 (BEAKER) (test pevt=063) 24 meq/L 22-29 BLOOD UREA NITROGEN (BEAKER) (test cmhh=849) 33 mg/dL 7-21 CREATININE (BEAKER) (test emgg=856) 8.34 mg/dL 0.57-1.25 GLUCOSE RANDOM (BEAKER) (test qusn=402) 124 mg/dL 70-105 CALCIUM (BEAKER) (test ulxu=107) 8.8 mg/dL 8.4-10.2 AST (SGOT) (BEAKER) (test alhj=516) 29 U/L 5-34 ALT (SGPT) (BEAKER) (test dzns=462) 17 U/L 6-55 EGFR (BEAKER) (test uftu=2019) 7 mL/min/1.73 sq m ESTIMATED GFR IS NOT ACCURATE CREATININE CLEARANCE IN PREDICTING GLOMERULAR FILTRATION RATE. ESTIMATED GFR IS NOT APPLICABLE FOR DIALYSIS PATIENTS. LIPID [id number] 11:31:00* Test Item Value Reference Range Comments TRIGLYCERIDES (BEAKER) (test wvds=322) 160 mg/dL CHOLESTEROL (BEAKER) (test ihmj=981) 139 mg/dL HDL CHOLESTEROL (BEAKER) (test vqee=529) 34 mg/dL LDL CHOLESTEROL CALCULATED (BEAKER) (test zggi=095) 73 mg/dL Triglyceride Reference Range: Low Risk <150 Borderline 150-199 High Risk 200-499 Very High Risk >=500Cholesterol Reference Range: Low Risk <200 Borderline 200-239 High Risk >240HDL Cholesterol Reference Range: Low Risk >=60 High Risk <40LDL Cholesterol Reference Range: Optimal <100 Near Optimal 100-129 Borderline 130-159 High 160-189 Very High >=190 BILIRUBIN, [id number] 11:31:00* Test Item Value Reference Range Comments BILIRUBIN DIRECT (BEAKER) (test gmem=731) 0.4 mg/dL 0.1-0.5 PROTHROMBIN TIME/[id number] 10:58:00* Test Item Value Reference Range Comments PROTIME (BEAKER) (test nsub=239) 15.0 seconds 11.9-14.2 INR (BEAKER) (test eifv=321) 1.2 <=5.9 Effective 04/06/2019: PT Reference Range ChangeNew: 11.9-14.2 Previous: 11.7-14. 7RECOMMENDED COUMADIN/WARFARIN INR THERAPY RANGESSTANDARD DOSE: 2.0-3.0 Include s: PROPHYLAXIS for venous thrombosis, systemic embolization; TREATMENT for venou s thrombosis and/or pulmonary embolus.HIGH RISK: Target INR is 2.5-3.5 for patie nts wiht mechanical heart valves.CBC W/PLT COUNT & AUTO [id number] 10:55:00* Test Item Value Reference Range Comments WHITE BLOOD CELL COUNT (BEAKER) (test lvds=081) 5.3 K/ L 3.5-10.5 RED BLOOD CELL COUNT (BEAKER) (test ricn=349) 3.11 M/ L 4.63-6.08 HEMOGLOBIN (BEAKER) (test vsfi=344) 10.3 GM/DL 13.7-17.5 HEMATOCRIT (BEAKER) (test euct=040) 28.9 % 40.1-51.0 MEAN CORPUSCULAR VOLUME (BEAKER) (test upuh=635) 92.9 fL 79.0-92.2 MEAN CORPUSCULAR HEMOGLOBIN (BEAKER) (test lmao=416) 33.1 pg 25.7-32.2 MEAN CORPUSCULAR HEMOGLOBIN CONC (BEAKER) (test adxn=579) 35.6 GM/DL 32.3-36.5 RED CELL DISTRIBUTION WIDTH (BEAKER) (test ufhk=090) 14.9 % 11.6-14.4 PLATELET COUNT (BEAKER) (test xdhs=081) 87 K/CU MM 150-450 MEAN PLATELET VOLUME (BEAKER) (test rxqv=810) 10.4 fL 9.4-12.4 NUCLEATED RED BLOOD CELLS (BEAKER) (test zetq=191) 0 /100 WBC 0-0 NEUTROPHILS RELATIVE PERCENT (BEAKER) (test vlhw=481) 64 % LYMPHOCYTES RELATIVE PERCENT (BEAKER) (test mtfw=996) 21 % MONOCYTES RELATIVE PERCENT (BEAKER) (test yupz=081) 9 % EOSINOPHILS RELATIVE PERCENT (BEAKER) (test edai=562) 5 % BASOPHILS RELATIVE PERCENT (BEAKER) (test qhpi=488) 1 % NEUTROPHILS ABSOLUTE COUNT (BEAKER) (test ffbe=637) 3.41 K/ L 1.78-5.38 LYMPHOCYTES ABSOLUTE COUNT (BEAKER) (test mcgy=874) 1.14 K/ L 1.32-3.57 MONOCYTES ABSOLUTE COUNT (BEAKER) (test ykal=786) 0.46 K/ L 0.30-0.82 EOSINOPHILS ABSOLUTE COUNT (BEAKER) (test rgmb=313) 0.25 K/ L 0.04-0.54 BASOPHILS ABSOLUTE COUNT (BEAKER) (test osrb=456) 0.05 K/ L 0.01-0.08 IMMATURE GRANULOCYTES-RELATIVE PERCENT (BEAKER) (test kxld=9375) 0 % 0-1 RAD, BONE DENSITY [id number] 10:38:00Referring: Dr. Stanton Healy for Exam:->H/O Osteoporosis, on liver and kidney transplant listFINAL REPORT Bone mineral density study 05/03/2019. HISTORY [...] T-score is -3.5, and the Z-score is -3. 4. This is suggestive of osteoporosis. The right femoral neck total bone mineral density is 0.727gm/cm2, the T-score is -2.6, and the Z-score is -2.5. This is s uggestive of osteoporosis. The lumbar spine total bone mineral density is 1.004g m/cm2, the T-score is -1.8, and the Z-score is -2.3. This is suggestive of osteo penia. Compared to the prior exam, the bone mineral density of the lumbar spine demonstrates a 6.3% decrease. The bone density of the left femoral neck demonst rates a 11.6% decrease. The bone mineral density of the right femoral neck demo nstrates a 3.1% decrease. Signed: Brendan Inman MDReport Verified Date/Time : 05/03/2019 10:38:27 Reading Location: [facility] Women , ABDOMEN, [id number] 15:39:00Referring: Dr. Eid [facility] Prctocol-Triple PhaseFINAL REPORT ABDOMINAL CT DATED 02/01/2019 CLINICAL INFORMATION: [...] COMMENT: Liver is cirrhotic in appearance with irreg ular margins. No abnormal enhancement or focal mass is seen in the liver. Spleen is enlarged measuring 18.1 cm in length. The splenic, spleen mesenteric, portal, and hepatic veins are patent. Main portal vein measures 19 mm in diameter. No portal vein thrombosis is seen. There is recannulization periumbilical vein. Gal lbladder is contracted. No gallstone or biliary dilatation is noted. Pancreas a nd adrenals are unremarkable. Both kidneys are atrophic suggestive of medical renal disease. The small and large bowel are unremarkable. Appendix is not visua lized. Atherosclerotic calcification is seen in the abdominal aorta, inferior me senteric, and bilateral arteries. No mass, adenopathy or ascites is present. IMP RESSION: 1. Cirrhosis with splenomegaly and portal hypertension.2. No suspiciou s hepatic mass.3. Atrophic kidneys suggestive of medical renal disease. Signed: Felipe Luz MDReport Verified Date/Time: 02/01/2019 15:39:07 Reading Location: [address] Radiology Reading Room [id number] 13:54:00* Test Item Value Reference Range Comments FERRITIN (BEAKER) (test ekwm=892) 488 ng/mL 5-275 COMPREHENSIVE METABOLIC [id number] 12:54:00* Test Item Value Reference Range Comments TOTAL PROTEIN (BEAKER) (test bcps=897) 8.2 gm/dL 6.0-8.3 ALBUMIN (BEAKER) (test hsuw=5096) 4.2 g/dL 3.5-5.0 ALKALINE PHOSPHATASE (BEAKER) (test mzlz=204) 221 U/L 40-150 BILIRUBIN TOTAL (BEAKER) (test ibgw=614) 0.7 mg/dL 0.2-1.2 SODIUM (BEAKER) (test hipz=362) 138 meq/L 136-145 POTASSIUM (BEAKER) (test nraw=030) 4.7 meq/L 3.5-5.1 CHLORIDE (BEAKER) (test tljv=131) 102 meq/L 98-107 CO2 (BEAKER) (test kers=396) 21 meq/L 22-29 BLOOD UREA NITROGEN (BEAKER) (test wwav=097) 33 mg/dL 7-21 CREATININE (BEAKER) (test drvl=355) 8.39 mg/dL 0.57-1.25 GLUCOSE RANDOM (BEAKER) (test heaw=787) 133 mg/dL 70-105 CALCIUM (BEAKER) (test hcvb=714) 9.9 mg/dL 8.4-10.2 AST (SGOT) (BEAKER) (test fzcy=592) 34 U/L 5-34 ALT (SGPT) (BEAKER) (test zkhf=720) 18 U/L 6-55 EGFR (BEAKER) (test xrah=2738) mL/min/1.73 sq m INSUFFICIENT CLINICAL DATA TO CALCULATE ESTIMATED GFR. BILIRUBIN, [id number] 12:52:00* Test Item Value Reference Range Comments BILIRUBIN DIRECT (BEAKER) (test cifb=380) 0.3 mg/dL 0.1-0.5 IRON, TIBC, % SAT. (WITHOUT FERRITIN)2019-02-01 12:51:00* Test Item Value Reference Range Comments IRON (BEAKER) (test jlse=134) 65.0 ug/dL 40.0-160.0 TOTAL IRON BINDING CAPACITY (BEAKER) (test jirp=600) 265 ug/dL 250-450 IRON % SATURATION (2) (BEAKER) (test jdxx=4697) 25 % 20-55 PROTHROMBIN TIME/[id number] 12:47:00* Test Item Value Reference Range Comments PROTIME (BEAKER) (test ibmx=230) 14.4 seconds 11.7-14.7 INR (BEAKER) (test elcr=253) 1.1 <=5.9 RECOMMENDED COUMADIN/WARFARIN INR THERAPY RANGESSTANDARD DOSE: 2.0 - 3.0 Inclu arabella: PROPHYLAXIS for venous thrombosis, systemic embolization; TREATMENT for jan ous thrombosis and/or pulmonary embolus.HIGH RISK: Target INR is 2.5-3.5 for pat ients with mechanical heart valves.CBC W/PLT COUNT & AUTO [id number] 12:25:00* Test Item Value Reference Range Comments WHITE BLOOD CELL COUNT (BEAKER) (test lklf=117) 5.1 K/ L 3.5-10.5 RED BLOOD CELL COUNT (BEAKER) (test lrpj=883) 3.64 M/ L 4.63-6.08 HEMOGLOBIN (BEAKER) (test jyhf=447) 11.7 GM/DL 13.7-17.5 HEMATOCRIT (BEAKER) (test iqrf=268) 35.5 % 40.1-51.0 MEAN CORPUSCULAR VOLUME (BEAKER) (test hfvq=725) 97.5 fL 79.0-92.2 MEAN CORPUSCULAR HEMOGLOBIN (BEAKER) (test siek=735) 32.1 pg 25.7-32.2 MEAN CORPUSCULAR HEMOGLOBIN CONC (BEAKER) (test jkqk=623) 33.0 GM/DL 32.3-36.5 RED CELL DISTRIBUTION WIDTH (BEAKER) (test fsdk=416) 13.5 % 11.6-14.4 PLATELET COUNT (BEAKER) (test fzuf=576) 130 K/CU MM 150-450 MEAN PLATELET VOLUME (BEAKER) (test albl=765) 10.3 fL 9.4-12.4 NUCLEATED RED BLOOD CELLS (BEAKER) (test noko=604) 0 /100 WBC 0-0 NEUTROPHILS RELATIVE PERCENT (BEAKER) (test khxu=826) 64 % LYMPHOCYTES RELATIVE PERCENT (BEAKER) (test zpcg=646) 21 % MONOCYTES RELATIVE PERCENT (BEAKER) (test sgfq=069) 7 % EOSINOPHILS RELATIVE PERCENT (BEAKER) (test jkbu=013) 6 % BASOPHILS RELATIVE PERCENT (BEAKER) (test mydj=388) 1 % NEUTROPHILS ABSOLUTE COUNT (BEAKER) (test mrpa=991) 3.28 K/ L 1.78-5.38 LYMPHOCYTES ABSOLUTE COUNT (BEAKER) (test aubm=446) 1.07 K/ L 1.32-3.57 MONOCYTES ABSOLUTE COUNT (BEAKER) (test kzht=320) 0.35 K/ L 0.30-0.82 EOSINOPHILS ABSOLUTE COUNT (BEAKER) (test gdis=434) 0.30 K/ L 0.04-0.54 BASOPHILS ABSOLUTE COUNT (BEAKER) (test avqk=185) 0.06 K/ L 0.01-0.08 IMMATURE GRANULOCYTES-RELATIVE PERCENT (BEAKER) (test fhiw=2824) 1 % 0-1 Bacterial [id number] 09:44:00* Test Item Value Reference Range Comments Bacterial Culture (test code=BACTC) GS Bacterial Culture (test code=BACTC1) NOS O:PRACN (test code=PRACN) Propionibacterium acnes Bacterial Culture (test code=BACTC1.1) QUANTITATION: Bacterial Culture (test code=BACTC1.1) Nutrient Broth Only Comment graft siteBLOOD [id number] 19:01:00* Test Item Value Reference Range Comments CULTURE (BEAKER) (test dteh=7308) No growth in 5 days BASIC METABOLIC [id number] 14:24:00* Test Item Value Reference Range Comments SODIUM (BEAKER) (test lorl=944) 141 meq/L 136-145 POTASSIUM (BEAKER) (test pajp=085) 4.8 meq/L 3.5-5.1 CHLORIDE (BEAKER) (test pdgk=554) 104 meq/L 98-107 CO2 (BEAKER) (test syxk=989) 27 meq/L 22-29 BLOOD UREA NITROGEN (BEAKER) (test twhx=785) 26 mg/dL 7-21 CREATININE (BEAKER) (test lndp=457) 8.10 mg/dL 0.57-1.25 GLUCOSE RANDOM (BEAKER) (test pvbp=659) 92 mg/dL 70-105 CALCIUM (BEAKER) (test zmgt=435) 9.4 mg/dL 8.4-10.2 EGFR (BEAKER) (test jmxe=1719) mL/min/1.73 sq m INSUFFICIENT CLINICAL DATA TO CALCULATE ESTIMATED GFR. PT/[id number] 14:22:00* Test Item Value Reference Range Comments PROTIME (BEAKER) (test ywso=621) 14.9 seconds 11.7-14.7 INR (BEAKER) (test imrk=790) 1.2 <=5.9 PARTIAL THROMBOPLASTIN TIME (BEAKER) (test kmeb=943) 44.0 seconds 22.5-36.0 RECOMMENDED COUMADIN/WARFARIN INR THERAPY RANGESSTANDARD DOSE: 2.0 - 3.0 Inclu arabella: PROPHYLAXIS for venous thrombosis, systemic embolization; TREATMENT for jan ous thrombosis and/or pulmonary embolus.HIGH RISK: Target INR is 2.5-3.5 for pat ients with mechanical heart valves.CBC W/PLT COUNT & AUTO [id number] 14:10:00* Test Item Value Reference Range Comments WHITE BLOOD CELL COUNT (BEAKER) (test parf=409) 3.7 K/ L 3.5-10.5 RED BLOOD CELL COUNT (BEAKER) (test pfaw=347) 4.02 M/ L 4.63-6.08 HEMOGLOBIN (BEAKER) (test hufp=455) 13.0 GM/DL 13.7-17.5 HEMATOCRIT (BEAKER) (test nnmd=168) 38.6 % 40.1-51.0 MEAN CORPUSCULAR VOLUME (BEAKER) (test aswv=364) 96.0 fL 79.0-92.2 MEAN CORPUSCULAR HEMOGLOBIN (BEAKER) (test obep=533) 32.3 pg 25.7-32.2 MEAN CORPUSCULAR HEMOGLOBIN CONC (BEAKER) (test rwbc=238) 33.7 GM/DL 32.3-36.5 RED CELL DISTRIBUTION WIDTH (BEAKER) (test cuzo=991) 14.4 % 11.6-14.4 PLATELET COUNT (BEAKER) (test rowz=727) 87 K/CU MM 150-450 MEAN PLATELET VOLUME (BEAKER) (test txkl=187) 9.9 fL 9.4-12.4 NUCLEATED RED BLOOD CELLS (BEAKER) (test ieui=873) 0 /100 WBC 0-0 NEUTROPHILS RELATIVE PERCENT (BEAKER) (test xvlp=933) 64 % LYMPHOCYTES RELATIVE PERCENT (BEAKER) (test icom=049) 23 % MONOCYTES RELATIVE PERCENT (BEAKER) (test riic=189) 7 % EOSINOPHILS RELATIVE PERCENT (BEAKER) (test smvg=486) 5 % BASOPHILS RELATIVE PERCENT (BEAKER) (test ymoz=857) 1 % NEUTROPHILS ABSOLUTE COUNT (BEAKER) (test yqlp=366) 2.36 K/ L 1.78-5.38 LYMPHOCYTES ABSOLUTE COUNT (BEAKER) (test egzs=188) 0.83 K/ L 1.32-3.57 MONOCYTES ABSOLUTE COUNT (BEAKER) (test vwvf=609) 0.25 K/ L 0.30-0.82 EOSINOPHILS ABSOLUTE COUNT (BEAKER) (test ytza=810) 0.20 K/ L 0.04-0.54 BASOPHILS ABSOLUTE COUNT (BEAKER) (test abep=687) 0.03 K/ L 0.01-0.08 IMMATURE GRANULOCYTES-RELATIVE PERCENT (BEAKER) (test ubrg=3602) 0 % 0-1 [id number] 16:00:00* Test Item Value Reference Range Comments Accuchek (test code=ACU) 242 mg/dL 70-110 [id number] 13:27:00* Test Item Value Reference Range Comments Accuchek (test code=ACU) 91 mg/dL 70-110 [id number] 05:42:00* Test Item Value Reference Range Comments Accuchek (test code=ACU) 125 mg/dL 70-110 Chemistry - [id number] 20:45:00* Test Item Value Reference Range Comments Chemistry - Specials (test code=THBSAG) Non-Reactive S/CO NonReactive [id number] 12:48:00* Test Item Value Reference Range Comments Hematology (test code=WBCT) 6.5 thou/uL 4.8-10.8 Hematology (test code=RBCT) 2.84 mill/uL 4.70-6.10 Hematology (test code=HGBT) 9.3 g/dL 14.0-18.0 Hematology (test code=HCTT) 27.0 % 42.0-52.0 Hematology (test code=MCV) 95.0 fL 78.0-98.0 Hematology (test code=MCH) 32.8 pg 27.0-31.0 Hematology (test code=MCHC) 34.5 g/dL 32.0-36.0 Hematology (test code=RDW) 14.3 % 11.5-14.5 Hematology (test code=PLTT) 104 thou/uL 130-400 Hematology (test code=MPV) 8.2 fL 7.4-10.4 Hematology (test code=%NEUT) 72.5 % 42.0-75.0 Hematology (test code=%LYMPH) 17.3 % 21.0-51.0 Hematology (test code=%MONO) 4.0 % 0.0-10.0 Hematology (test code=%EOS) 5.1 % 0.0-10.0 Hematology (test code=%BASO) 1.0 % 0.0-1.0 Hematology (test code=NEUT#) 4.7 thou/uL 1.40-6.50 Hematology (test code=LYMPH#) 1.1 thou/uL 1.20-3.40 Hematology (test code=MONO#) 0.3 thou/uL 0.11-0.59 Hematology (test code=EOS#) 0.3 thou/uL 0.0-0.7 Hematology (test code=BASO#) 0.1 thou/uL 0.0-0.2 Hematology (test code=PCOMMENT) Appears Decreased Hematology (test code=MC) Normal Comment blue [id number] 12:14:00* Test Item Value Reference Range Comments Chemistry (test code=TBILI) 0.9 mg/dL 0.2-1.2 Chemistry (test code=DBILI) 0.4 mg/dL 0.1-0.3 Chemistry (test code=TP) 7.6 g/dL 6.0-8.3 Chemistry (test code=ALB) 4.0 g/dL 3.5-5.0 Chemistry (test code=ALP) 167 U/L 40-150 Chemistry (test code=AST) 24 U/L 5-34 Chemistry (test code=ALT) 7 U/L 8-55 [id number] 12:05:00* Test Item Value Reference Range Comments Chemistry (test code=NA-T) 139 mmol/L 136-145 Chemistry (test code=K-T) 5.3 mmol/L 3.5-5.1 Chemistry (test code=CL) 102 mmol/L 98-107 Chemistry (test code=CO2) 18 mmol/L 22-29 Chemistry (test code=ANGP) 24 mmol/L 10-20 Chemistry (test code=BUN) 110 mg/dL 8.9-20.6 Chemistry (test code=CREATT) 16.76 mg/dL 0.7-1.3 Chemistry (test code=EGFRMDRD) 3 Reference Range for Estimated GFR: Greater than 90 mL/min/1.73 m2NOTE:The MDRD equation has not been validated for use with theelderly (over 70 years of age), women, patien tswith serious comorbid condition or persons with extremes ofbody size, muscle mass, or nutritional status. Chemistry (test code=GLU-T) 87 mg/dL 70-105 Chemistry (test code=CA) 8.5 mg/dL 7.8-10.44 Comment blue [id number] 11:51:00* Test Item Value Reference Range Comments Coagulation (test code=PT-T) 15.9 SEC 12.0-14.7 Coagulation (test code=INR) 1.3 ATTENTION: READ CAREFULLY The recommended therapeutic ranges for oral anticoagulanttreatments are: Low Intensity: 1.5 - 2.0 Moderate Intensity: 2.0 - 3.0 High Intensity (1): 2.5 - 3.5 High Intensity (2): 3.0 - 4.0 CRITICAL: > 4.0 Anticoagulant? ASPIRINComment blue 2Anticoagulant? [id number] 11:51:00* Test Item Value Reference Range Comments Coagulation (test code=PTT) 48.0 SEC 22.9-36.1 Anticoagulant? ASPIRINComment blue 2Anticoagulant? ASPIRINBASIC METABOLIC PANEL 2018-07-27 15:43:00* Test Item Value Reference Range Comments SODIUM (BEAKER) (test djzy=538) 135 meq/L 136-145 POTASSIUM (BEAKER) (test lkfa=156) 4.4 meq/L 3.5-5.1 CHLORIDE (BEAKER) (test bbso=136) 97 meq/L 98-107 CO2 (BEAKER) (test shen=034) 27 meq/L 22-29 BLOOD UREA NITROGEN (BEAKER) (test oimc=535) 33 mg/dL 7-21 CREATININE (BEAKER) (test ombx=475) 6.67 mg/dL 0.57-1.25 GLUCOSE RANDOM (BEAKER) (test gbcw=710) 98 mg/dL 70-105 CALCIUM (BEAKER) (test sxil=112) 9.3 mg/dL 8.4-10.2 EGFR (BEAKER) (test pqqa=0848) mL/min/1.73 sq m INSUFFICIENT CLINICAL DATA TO CALCULATE ESTIMATED GFR. [id number] 15:34:00* Test Item Value Reference Range Comments LIPASE (BEAKER) (test ndeh=080) 63 U/L 8-78 [id number] 15:34:00* Test Item Value Reference Range Comments AMYLASE (BEAKER) (test wrkb=565) 81 U/L 25-125 HEPATIC FUNCTION [id number] 15:34:00* Test Item Value Reference Range Comments TOTAL PROTEIN (BEAKER) (test upaw=566) 7.8 gm/dL 6.0-8.3 ALBUMIN (BEAKER) (test dskg=0239) 3.9 g/dL 3.5-5.0 BILIRUBIN TOTAL (BEAKER) (test cvdd=914) 0.7 mg/dL 0.2-1.2 BILIRUBIN DIRECT (BEAKER) (test cnws=084) 0.3 mg/dL 0.1-0.5 ALKALINE PHOSPHATASE (BEAKER) (test wiwt=375) 190 U/L 40-150 AST (SGOT) (BEAKER) (test wvjj=681) 27 U/L 5-34 ALT (SGPT) (BEAKER) (test gvpa=662) 14 U/L 6-55 PROTHROMBIN TIME/[id number] 15:19:00* Test Item Value Reference Range Comments PROTIME (BEAKER) (test yosa=461) 15.0 seconds 11.7-14.7 INR (BEAKER) (test sjct=947) 1.2 <=5.9 RECOMMENDED COUMADIN/WARFARIN INR THERAPY RANGESSTANDARD DOSE: 2.0 - 3.0 Inclu arabella: PROPHYLAXIS for venous thrombosis, systemic embolization; TREATMENT for jan ous thrombosis and/or pulmonary embolus.HIGH RISK: Target INR is 2.5-3.5 for pat ients with mechanical heart valves.CBC W/PLT COUNT & AUTO [id number] 15:13:00* Test Item Value Reference Range Comments WHITE BLOOD CELL COUNT (BEAKER) (test ucgr=002) 4.7 K/ L 3.5-10.5 RED BLOOD CELL COUNT (BEAKER) (test viuh=345) 2.86 M/ L 4.63-6.08 HEMOGLOBIN (BEAKER) (test xyxm=525) 9.0 GM/DL 13.7-17.5 HEMATOCRIT (BEAKER) (test uxto=748) 27.4 % 40.1-51.0 MEAN CORPUSCULAR VOLUME (BEAKER) (test zwdd=151) 95.8 fL 79.0-92.2 MEAN CORPUSCULAR HEMOGLOBIN (BEAKER) (test qrtf=521) 31.5 pg 25.7-32.2 MEAN CORPUSCULAR HEMOGLOBIN CONC (BEAKER) (test fwoz=698) 32.8 GM/DL 32.3-36.5 RED CELL DISTRIBUTION WIDTH (BEAKER) (test vuxv=729) 15.9 % 11.6-14.4 PLATELET COUNT (BEAKER) (test mgpm=406) 134 K/CU MM 150-450 MEAN PLATELET VOLUME (BEAKER) (test dzkw=673) 10.2 fL 9.4-12.4 NUCLEATED RED BLOOD CELLS (BEAKER) (test evmd=778) 0 /100 WBC 0-0 NEUTROPHILS RELATIVE PERCENT (BEAKER) (test ikoa=507) 59 % LYMPHOCYTES RELATIVE PERCENT (BEAKER) (test vege=347) 25 % MONOCYTES RELATIVE PERCENT (BEAKER) (test ppuh=879) 10 % EOSINOPHILS RELATIVE PERCENT (BEAKER) (test jbtp=062) 5 % BASOPHILS RELATIVE PERCENT (BEAKER) (test blsf=236) 1 % NEUTROPHILS ABSOLUTE COUNT (BEAKER) (test bhjz=211) 2.76 K/ L 1.78-5.38 LYMPHOCYTES ABSOLUTE COUNT (BEAKER) (test tgic=207) 1.19 K/ L 1.32-3.57 MONOCYTES ABSOLUTE COUNT (BEAKER) (test lddp=286) 0.45 K/ L 0.30-0.82 EOSINOPHILS ABSOLUTE COUNT (BEAKER) (test vpfn=207) 0.23 K/ L 0.04-0.54 BASOPHILS ABSOLUTE COUNT (BEAKER) (test pvsk=758) 0.03 K/ L 0.01-0.08 IMMATURE GRANULOCYTES-RELATIVE PERCENT (BEAKER) (test oboa=1267) 0 % 0-1 [id number] SURGICAL PATHOLOGY, LEVEL [id number] 16:44:[address] [address] Laboratory Fax: Printed: 07/07/18 [facility] Patient: MARCO A MCKENNA Birthdate: Age/Sex: 47/M Spec#: [id number]: Brendan Mireles MD Specimen Date: 07/06 Received Date: 07/06/18 Specim en: POLYP, COLON CLINICAL SAMANTHA GNOSIS liver cirrhosis, anemia PATHOL OGIC DIAGNOSIS A. Colon, sigmoid polyp, polypectomy: - Tubula r adenoma. Comment: There is no high grade dysplasia or malignancy present. B. Colon, ascending polyp, polypectomy: - Tubular adenoma. Comment: There is no high grade dysplasia or malignancy present. C. Colon, descending polyp, polyp ectomy: - Tubular adenoma. Comment: There is no high grade dysplasia or rosalba gnancy present. Pathologist:Debra Elizabeth MD Entered by:07/07/18 - 1534 LAB. YGP PROCEDURES: 28988/3 Patient: MARCO A MCKENNA Re07/06/18Loc: [facility] MR#: [id number] CONTINUED ON NEXT PAGE Dis: Sta: DEP SDC [address] [address] Tel: Laboratory Printed: 0 07/07/18 [facility]: 2 ---- -------- Patient: MARCO A MCKENNA [id number] (Continued)- GROSS DESCRIPTION A. POLY P, COLON SIGMOID The specimen is received in 10% formalin, and is labeled with the patient's name and"sigmoid polyp." The specimen consists of a portion of pink-[place] soft tissue measuring 0 .5 x0.4 x 0.2 cm. The specimen is bisected and entirely submitted in cassette A . B. POLYP, COLON ASCENDING The specimen is received in 10% formalin, and is labeled with the patient's name and"ascending colon polyp." The specimen consists of a portion of pink-mon[place] soft tissuemeasuring 0.4 x 0.4 x 0.3 cm. The specimen is bisected and entirely sub mitted in cassetteB. C. POLYP, COLON DESCENDING The specimen is received in 10% formalin, and is labeled with the patient's name and"descending colon polyp." The specimen consists of three pink-monaco soft tissue fragmentsranging from 0.3 to 0.5 cm in greatest dimensions. The largest one is inked black andbisected. The specimen is entirely submitted in cassette C. Dictated by: MADI GOMEZ Entered by: 07/06/18 - 1604 LAB.YGP MICROSCOPIC DESCRIPTION A microscopic examination was performed to arrive at the diagnostic conclusion reported. Signed (Electronically Signed) Debra Elizabeth MD 07/07/18 Patient: MARCO A MCKENNA Re07/06/18Loc: [facility] MR#: [id number] END OF R EPORT Dis: Sta: DEP SDCCOMPREHENSIVE METABOLIC [id number] 14:52:00* Test Item Value Reference Range Comments TOTAL PROTEIN (BEAKER) (test iilf=635) 8.7 gm/dL 6.0-8.3 ALBUMIN (BEAKER) (test qlai=9852) 4.2 g/dL 3.5-5.0 ALKALINE PHOSPHATASE (BEAKER) (test jsye=944) 204 U/L 40-150 BILIRUBIN TOTAL (BEAKER) (test mgub=015) 0.8 mg/dL 0.2-1.2 SODIUM (BEAKER) (test zwjg=167) 138 meq/L 136-145 POTASSIUM (BEAKER) (test kcfb=657) 4.8 meq/L 3.5-5.1 CHLORIDE (BEAKER) (test ekwe=282) 100 meq/L 98-107 CO2 (BEAKER) (test chfm=304) 26 meq/L 22-29 BLOOD UREA NITROGEN (BEAKER) (test srsh=321) 23 mg/dL 7-21 CREATININE (BEAKER) (test umee=817) 5.87 mg/dL 0.57-1.25 GLUCOSE RANDOM (BEAKER) (test hvri=125) 117 mg/dL 70-105 CALCIUM (BEAKER) (test fvfj=738) 9.5 mg/dL 8.4-10.2 AST (SGOT) (BEAKER) (test bqyy=552) 38 U/L 5-34 ALT (SGPT) (BEAKER) (test pqva=409) 21 U/L 6-55 EGFR (BEAKER) (test itle=8699) mL/min/1.73 sq m INSUFFICIENT CLINICAL DATA TO CALCULATE ESTIMATED GFR. BILIRUBIN, MDTUIM6505-22-30 14:43:00* Test Item Value Reference Range Comments BILIRUBIN DIRECT (BEAKER) (test wbnc=671) 0.4 mg/dL 0.1-0.5 PROTHROMBIN TIME/[id number] 14:27:00* Test Item Value Reference Range Comments PROTIME (BEAKER) (test mysf=693) 15.3 seconds 11.7-14.7 INR (BEAKER) (test eeoe=101) 1.2 <=5.9 RECOMMENDED COUMADIN/WARFARIN INR THERAPY RANGESSTANDARD DOSE: 2.0 - 3.0 Inclu arabella: PROPHYLAXIS for venous thrombosis, systemic embolization; TREATMENT for jan ous thrombosis and/or pulmonary embolus.HIGH RISK: Target INR is 2.5-3.5 for pat ients with mechanical heart valves.CBC W/PLT COUNT & AUTO [id number] 14:17:00* Test Item Value Reference Range Comments WHITE BLOOD CELL COUNT (BEAKER) (test ntgh=681) 5.2 K/ L 3.5-10.5 RED BLOOD CELL COUNT (BEAKER) (test xlzh=182) 3.71 M/ L 4.63-6.08 HEMOGLOBIN (BEAKER) (test toce=321) 11.9 GM/DL 13.7-17.5 HEMATOCRIT (BEAKER) (test rncv=120) 36.3 % 40.1-51.0 MEAN CORPUSCULAR VOLUME (BEAKER) (test tycg=814) 97.8 fL 79.0-92.2 MEAN CORPUSCULAR HEMOGLOBIN (BEAKER) (test lwzn=032) 32.1 pg 25.7-32.2 MEAN CORPUSCULAR HEMOGLOBIN CONC (BEAKER) (test tvcz=371) 32.8 GM/DL 32.3-36.5 RED CELL DISTRIBUTION WIDTH (BEAKER) (test ggpm=695) 15.6 % 11.6-14.4 PLATELET COUNT (BEAKER) (test gctb=074) 129 K/CU MM 150-450 MEAN PLATELET VOLUME (BEAKER) (test qxms=550) 10.2 fL 9.4-12.4 NUCLEATED RED BLOOD CELLS (BEAKER) (test pfhn=842) 0 /100 WBC 0-0 NEUTROPHILS RELATIVE PERCENT (BEAKER) (test ekqt=114) 63 % LYMPHOCYTES RELATIVE PERCENT (BEAKER) (test idph=230) 24 % MONOCYTES RELATIVE PERCENT (BEAKER) (test yypl=019) 5 % EOSINOPHILS RELATIVE PERCENT (BEAKER) (test gkqu=101) 6 % BASOPHILS RELATIVE PERCENT (BEAKER) (test bswu=122) 1 % NEUTROPHILS ABSOLUTE COUNT (BEAKER) (test ttsq=761) 3.29 K/ L 1.78-5.38 LYMPHOCYTES ABSOLUTE COUNT (BEAKER) (test noxr=194) 1.26 K/ L 1.32-3.57 MONOCYTES ABSOLUTE COUNT (BEAKER) (test aocy=786) 0.28 K/ L 0.30-0.82 EOSINOPHILS ABSOLUTE COUNT (BEAKER) (test mmdy=362) 0.29 K/ L 0.04-0.54 BASOPHILS ABSOLUTE COUNT (BEAKER) (test ibcp=442) 0.05 K/ L 0.01-0.08 IMMATURE GRANULOCYTES-RELATIVE PERCENT (BEAKER) (test poof=3592) 0 % 0-1 CT, ABDOMEN, [id number] 16:18:00Referring: Dr. Eid [facility] Prctocol-Triple PhaseFINAL REPORT CT of the abdomen with and without contrast Reason for study: Cirrhosis, liver and kidney transplant list Comparison: CT, 12/22/2017 Technique: Pre and post contrast CT of the abdomen. Intravenous contrast was given. Dose modulation, iterative reconstruction, and/or weight based adjustment of the mA/kV was utilized to reduce the radiation dose to as low as reasonably achievable. Findings: Liver: Cirrhotic. No abnormally enhancing liver mass. Spleen: Enlarged measuring approximately 18 cm in length. Small calcified granulomas. Gallbladder and bile ducts: Mildly distended gallbladder. No bile duct dilatation. Adrenals: Unremarkable Kidneys: Atrophic with no excretion, compatible with ESRD. No hydronephrosis. Pancreas: Unremarkable Bowel: No bowel obstruction. Fluid: Minimal ascites and small left pleural and pericardial effusion. Retr operitoneum: Increased numbers of small retroperitoneal nodes, probably reactive . Blood vessels: Patent portal venous system. Some wall calcifications in the SM V and proximal main portal vein suggest chronic portal hypertension. Main portal vein diameter of 1.9 cm. Small recanalized paraumbilical vein. Patent abdominal aorta and IVC and branch vessels. Some arterial calcifications present. Lung ba ses: Left lower lobe dependent subsegmental atelectasis. Bones: Probable right T 11 vertebral body hemangioma. This is unchanged. Soft tissues: Mild anasarca IMP RESSION: 1. Portal hypertension due to cirrhosis. No suspicious liver mass. 2. E SRD. 3. Third spacing of fluid which is likely due to progression of liver and/o r kidney disease. Signed: Ronak Lopez MDReport Verified Date/Time: 05/25/2018 16:18:20 Reading Location: [address] Radiology Reading Room Electronic ally signed by: RONAK LOPEZ M.D. on 05/25/2018 04:18 PM HEMOGLOBIN A1C 2018-05-25 14:18:00* Test Item Value Reference Range Comments HEMOGLOBIN A1C (BEAKER) (test dqda=046) 4.4 % 4.3-6.1 ALPHA FETOPROTEIN (AFP), TUMOR [id number] 13:57:00* Test Item Value Reference Range Comments ALPHA-FETOPROTEIN (BEAKER) (test qnuw=4184) 3.1 ng/mL <10.0 HEPATITIS A ANTIBODY, [id number] 13:57:00* Test Item Value Reference Range Comments HEPATITIS A IGG ANTIBODY (BEAKER) (test uieb=0966) Nonreactive Nonreactive COMPREHENSIVE METABOLIC [id number] 13:40:00* Test Item Value Reference Range Comments TOTAL PROTEIN (BEAKER) (test pyjd=587) 8.1 gm/dL 6.0-8.3 ALBUMIN (BEAKER) (test ubjb=8503) 3.8 g/dL 3.5-5.0 ALKALINE PHOSPHATASE (BEAKER) (test rhak=862) 158 U/L 40-150 BILIRUBIN TOTAL (BEAKER) (test zkar=947) 0.6 mg/dL 0.2-1.2 SODIUM (BEAKER) (test krhx=818) 140 meq/L 136-145 POTASSIUM (BEAKER) (test towi=254) 4.2 meq/L 3.5-5.1 CHLORIDE (BEAKER) (test esad=988) 99 meq/L 98-107 CO2 (BEAKER) (test dhyy=407) 28 meq/L 22-29 BLOOD UREA NITROGEN (BEAKER) (test trmd=759) 32 mg/dL 7-21 CREATININE (BEAKER) (test rtcw=673) 5.87 mg/dL 0.57-1.25 GLUCOSE RANDOM (BEAKER) (test nryi=379) 129 mg/dL 70-105 CALCIUM (BEAKER) (test akdq=047) 9.4 mg/dL 8.4-10.2 AST (SGOT) (BEAKER) (test xgnp=617) 22 U/L 5-34 ALT (SGPT) (BEAKER) (test iigi=464) < U/L 6-55 EGFR (BEAKER) (test lazc=9847) mL/min/1.73 sq m INSUFFICIENT CLINICAL DATA TO CALCULATE ESTIMATED GFR. BILIRUBIN, [id number] 13:36:00* Test Item Value Reference Range Comments BILIRUBIN DIRECT (BEAKER) (test cclv=585) 0.3 mg/dL 0.1-0.5 PROTHROMBIN TIME/[id number] 13:01:00* Test Item Value Reference Range Comments PROTIME (BEAKER) (test bxfb=840) 15.7 seconds 11.7-14.7 INR (BEAKER) (test kwch=284) 1.3 <=5.9 RECOMMENDED COUMADIN/WARFARIN INR THERAPY RANGESSTANDARD DOSE: 2.0 - 3.0 Inclu arabella: PROPHYLAXIS for venous thrombosis, systemic embolization; TREATMENT for jan ous thrombosis and/or pulmonary embolus.HIGH RISK: Target INR is 2.5-3.5 for pat ients with mechanical heart valves.CBC W/PLT COUNT & AUTO [id number] 12:56:00* Test Item Value Reference Range Comments WHITE BLOOD CELL COUNT (BEAKER) (test cjiu=037) 5.4 K/ L 3.5-10.5 RED BLOOD CELL COUNT (BEAKER) (test dkab=698) 2.47 M/ L 4.63-6.08 HEMOGLOBIN (BEAKER) (test dksc=145) 8.1 GM/DL 13.7-17.5 HEMATOCRIT (BEAKER) (test glun=674) 26.2 % 40.1-51.0 MEAN CORPUSCULAR VOLUME (BEAKER) (test evrk=851) 106.1 fL 79.0-92.2 MEAN CORPUSCULAR HEMOGLOBIN (BEAKER) (test jnue=728) 32.8 pg 25.7-32.2 MEAN CORPUSCULAR HEMOGLOBIN CONC (BEAKER) (test beys=315) 30.9 GM/DL 32.3-36.5 RED CELL DISTRIBUTION WIDTH (BEAKER) (test tniu=998) 15.7 % 11.6-14.4 PLATELET COUNT (BEAKER) (test ljid=540) 126 K/CU MM 150-450 MEAN PLATELET VOLUME (BEAKER) (test mjad=448) 11.0 fL 9.4-12.4 NUCLEATED RED BLOOD CELLS (BEAKER) (test iird=479) 0 /100 WBC 0-0 NEUTROPHILS RELATIVE PERCENT (BEAKER) (test daem=314) 62 % LYMPHOCYTES RELATIVE PERCENT (BEAKER) (test rtmi=209) 22 % MONOCYTES RELATIVE PERCENT (BEAKER) (test pzla=416) 9 % EOSINOPHILS RELATIVE PERCENT (BEAKER) (test noug=757) 6 % BASOPHILS RELATIVE PERCENT (BEAKER) (test zmpa=216) 1 % NEUTROPHILS ABSOLUTE COUNT (BEAKER) (test yhot=612) 3.33 K/ L 1.78-5.38 LYMPHOCYTES ABSOLUTE COUNT (BEAKER) (test gasq=284) 1.20 K/ L 1.32-3.57 MONOCYTES ABSOLUTE COUNT (BEAKER) (test gret=984) 0.48 K/ L 0.30-0.82 EOSINOPHILS ABSOLUTE COUNT (BEAKER) (test juiw=495) 0.30 K/ L 0.04-0.54 BASOPHILS ABSOLUTE COUNT (BEAKER) (test oppn=726) 0.03 K/ L 0.01-0.08 IMMATURE GRANULOCYTES-RELATIVE PERCENT (BEAKER) (test miyf=5221) 0 % 0-1 AFB [id number] 11:14:00* Test Item Value Reference Range Comments AFB Smear (test code=AFBSM) Staining procedure: Auramine-Rhodamine Fluorescent Stain. AFB Smear (test code=AFBSM1) AFB AFB Smear (test code=AFBSM1) 0 CPT Modifier: 59AFB [id number] 11:14:00* Test Item Value Reference Range Comments AFB Smear (test code=AFBSM) AFB AFB Smear (test code=AFBSM1) 0 CPT Modifier: 59Culture, [id number] 11:14:00* Test Item Value Reference Range Comments Culture, AFB (test code=AFBC) NO ACID-FAST BACILLI ISOLATED AT 6 WEEKS CPT Modifier: 59Culture, [id number] 11:14:00* Test Item Value Reference Range Comments Culture, AFB (test code=AFBC) NO ACID-FAST BACILLI ISOLATED AT 6 WEEKS CPT Modifier: 59Reference Lab [id number] 11:49:00* Test Item Value Reference Range Comments Reference Lab Testing (test code=FUNGT) Final report . Reference Lab Testing (test code=FUNGR1) . No yeast or mold isolated after 4 weeks.Performed at: [facility] [id number] Director: Parvez Colindres MD, Phone: [phone] Reference Lab Testing (test code=FUNGSTAINT) Final report . Reference Lab Testing (test code=FUNGST) . DAREN/Calcofluor preparation: no fungus observed.SAME RESULT Source description: FLUIDGeneral Source: PERICARDIUMReference Lab Testing 2018-05-03 11:49:00* Test Item Value Reference Range Comments Reference Lab Testing (test code=FUNGT) Final report . Reference Lab Testing (test code=FUNGR1) . No yeast or mold isolated after 4 weeks.Performed at: [facility] [employer] [id number] Director: Parvez Colindres MD, Phone: [phone] Reference Lab Testing (test code=FUNGSTAINT) Final report . Reference Lab Testing (test code=FUNGST) . DAREN/Calcofluor preparation: no fungus observed.SAME RESULT General Source: PERICARDIUMBody Fluid [id number] 10:40:00* Test Item Value Reference Range Comments Body Fluid Culture (test code=FLUIDC) NO GROWTH IN 5 DAYS Body Fluid Culture (test code=FLUIDC1) GS Body Fluid Culture (test code=FLUIDC1) NOS CPT Modifier: 59Bacterial [id number] 10:39:00* Test Item Value Reference Range Comments Bacterial Culture (test code=BACTC) NO GROWTH IN 5 DAYS Bacterial Culture (test code=BACTC1) GS Bacterial Culture (test code=BACTC1) NOS CPT Modifier: 59Culture, [id number] 10:39:00* Test Item Value Reference Range Comments Culture, Anaerobe (test code=ANAER) NO ANAEROBES ISOLATED IN 5 DAYS CPT Modifier: 59Culture, [id number] 16:40:00* Test Item Value Reference Range Comments Culture, Blood (test code=BC) NG5 [id number] 11:04:00* Test Item Value Reference Range Comments Accuchek (test code=ACU) 115 mg/dL 70-110 [id number] 06:30:00* Test Item Value Reference Range Comments Accuchek (test code=ACU) 124 mg/dL 70-110 Ypidwkoi3414-97-93 20:53:00* Test Item Value Reference Range Comments Accuchek (test code=ACU) 113 mg/dL 70-110 Ctdzothn9195-12-37 16:54:00* Test Item Value Reference Range Comments Accuchek (test code=ACU) 159 mg/dL 70-110 Ariiszee3640-91-17 05:07:00* Test Item Value Reference Range Comments Accuchek (test code=ACU) 122 mg/dL 70-110 [address] SURGICAL PATHOLOGY, LEVEL [id number] 13:05:00 [facility] [address] [place] [address] Laboratory Fax: Printed: 04/01/18 8427 [facility] DAEMPathology Page: 1 Patient: MARCO A MCKENNA Birthdate: Age/Sex: 47/M Spec#: [id number]: Flaco Rios MD Specimen Date: 03/30 Received Date: 03/31/18 Specim en: PERICARDIAL BIOPSY CLINICAL SAMANTHA GNOSIS pericardial effusion PATHOLOGI C DIAGNOSIS Pericardium, biopsy: - Benign reactive appearing p ericardial tissue with detached fragments of blood andfibrinous material consist ent with the history of effusion. - No malignancy identified. Comment: The pa theresa has a history of staphylococcus sepsis and a pericardial effusion.Sections of this pericardium are consistent with the changes associated with effusion.Th ere is no neoplastic process identified. This case is correlated with the cytolo c report of the pericardial effusion and showssimilar findings ([id number]). Pa thologist:En Suarez MD Entered by:04/01/18 - 1214 LAB.YGP PRO CEDURES: [id number] GROSS DESCRIPTION Cynthia ent: MARCO A MCKENNA Re03/30/18Loc: Kamlesh ORDONEZ MR#: [id number] CONTINUED ON NEXT PAGE Dis: Sta: ADM IN [facility] [address] [facility] [place] [address] Lab oratory Printed: 04/01/18 [facility]1 [facility] DAEMPathology Fax: Page: 2 Patient: MARCO A MCKENNA ADILENE [id number] (Continued) GROSS DESCRIPTION (Continued) A. PERICARDIAL BIOPSY The specimen is received in 10% formalin labeled with the patient's name and "pericardium".The specimen consists of a monaco to light brown tissue fragment measuring 1.2 x 1.0 x 0.5 cmin greatest dimens ions. The specimen is serially sectioned and entirely submitted in onecassette. Dictated by: Ashley Mitchell Entered by: 03/31/18 - 1105 [facility].YGP MICROSCOPIC DESCRIPTION A microscopic examination was perfor med to arrive at the diagnostic conclusion reported. Lisseth mitchell (Electronically Signed) En Suarez MD 04/01/18 Patient: MARCO A MCKENNA Re03/30/18Loc: CCU MR#: [id number] END OF R EPORT Dis: Sta: [place] [address] SURGICAL PATHOLOGY, LEVEL IV 2018-04-01 13:04:00 [place] [address] Laboratory Fax: Printed: 04/01/18 1304 [facility] DAEMPathology Page: 1 Patient: MARCO A MCKENNA Birthdate: Age/Sex: 47/M Spec#: [id number]: Flaco Rios MD Specimen Date: 03/30 Received Date: 03/31/18 Specim en: FLUID, PERICARDIAL PATHOLOGIC DIAGNOSIS Pericardial fluid, cytology (ThinPrep and cell block): - Predominantly blood and degenerated fibrinous material. - No malignant ce lls present. Comment: I reviewed the clinical history which reports the patient having a history ofbacterial sepsis and a pericardial effusion. The cytologic characteristics are consistentwith effusion material. There is no neoplastic co mponent. This case is correlated with the pericardial tissue biopsy ([id number]). Pathologist:En Suarez MD Entered by:04/01/18 120 LAB.YGP PROCEDURES: 21814, 56486 GROSS DESCRIPTION A. FLUID, PERICARDIAL Received 70 ml dark bloody fluid containing CytoLyt. Prepared 1 ThinPrep slide and a cell bl ock. Dictated by: Adilia CRUZ ([facility]) Entered by: 03/31/18924 LAB.CAROLINA Porter atient: MARCO A MCKENNA Re03/30/18Loc : CCU MR#: [id number] CONTINUED ON NEXT PAGE Dis: Sta: ADM IN [address] [address] Laboratory Printed: 04/01/18 [facility] DAEMPathology Fax: Page: 2 Patient: MARCO A MCKENNA [id number] (Continued) MICROSCOPIC DESCRIPTION A microscopic examination was performed to arrive at the diagnostic conclusion reported. Sig bautista (Electronically Signed) En Suarez MD 04/01/18 Patient: MARCO A MCKENNA Re03/30/18Loc: U MR#: [id number] END OF REPORT Dis: Sta: ADM IN [id number] 09:10:00* Test Item Value Reference Range Comments Chemistry (test code=NA-T) 136 mmol/L 136-145 Chemistry (test code=K-T) 4.2 mmol/L 3.5-5.1 Chemistry (test code=CL) 99 mmol/L 98-107 Chemistry (test code=CO2) 27 mmol/L 22-29 Chemistry (test code=ANGP) 14 mmol/L 10-20 Chemistry (test code=BUN) 25 mg/dL 8.9-20.6 Chemistry (test code=CREATT) 6.27 mg/dL 0.6-1.3 Chemistry (test code=EGFRMDRD) 10 Reference Range for Estimated GFR: Greater than 90 mL/min/1.73 m2NOTE:The MDRD equation has not been validated for use with theelderly (over 70 years of age), women, patien tswith serious comorbid condition or persons with extremes ofbody size, muscle mass, or nutritional status. Chemistry (test code=GLU-T) 134 mg/dL 70-105 Chemistry (test code=CA) 8.0 mg/dL 7.8-10.44 Chemistry (test code=TBILI) 0.3 mg/dL 0.2-1.2 Chemistry (test code=TP) 7.1 g/dL 6.0-8.3 Chemistry (test code=ALB) 2.9 g/dL 3.5-5.0 Chemistry (test code=GLOB) 4.2 g/dL 2.4-3.5 Chemistry (test code=AG) 0.7 g/dL 1.2-2.2 Chemistry (test code=ALP) 124 U/L 40-150 Chemistry (test code=AST) 22 U/L 5-34 Chemistry (test code=ALT) Less than 7 U/L 8-55 Wmpcpfwdjs9454-26-38 09:02:00* Test Item Value Reference Range Comments Hematology (test code=WBCT) 10.7 thou/uL 4.8-10.8 Hematology (test code=RBCT) 2.87 mill/uL 4.70-6.10 Hematology (test code=HGBT) 9.6 g/dL 14.0-18.0 Hematology (test code=HCTT) 29.2 % 42.0-52.0 Hematology (test code=MCV) 102.0 fl 80.0-94.0 Hematology (test code=MCH) 33.4 pg 27.0-31.0 Hematology (test code=MCHC) 32.8 g/dL 32.0-36.0 Hematology (test code=RDW) 13.9 % 11.5-14.5 Hematology (test code=PLTT) 165 thou/uL 130-400 Hematology (test code=MPV) 8.0 fL 7.4-10.4 Hematology (test code=%NEUT) 72.7 % 42.0-75.0 Hematology (test code=%LYMPH) 17.7 % 21.0-51.0 Hematology (test code=%MONO) 6.4 % 0.0-10.0 Hematology (test code=%EOS) 2.3 % 0.0-10.0 Hematology (test code=%BASO) 0.9 % 0.0-1.0 Hematology (test code=NEUT#) 7.8 thou/uL 1.40-6.50 Hematology (test code=LYMPH#) 1.9 thou/uL 1.20-3.40 Hematology (test code=MONO#) 0.7 thou/uL 0.11-0.59 Hematology (test code=EOS#) 0.2 thou/uL 0.0-0.7 Hematology (test code=BASO#) 0.1 thou/uL 0.0-0.2 [id number] 04:19:00* Test Item Value Reference Range Comments Accuchek (test code=ACU) 124 mg/dL 70-110 Hematology - [id number] 08:17:00* Test Item Value Reference Range Comments Hematology - Fluids (test code=CCDIFFBF) PERICARDIAL FLUID Hematology - Fluids (test code=CCDIFFCL) Cloudy/Turbid Clear Hematology - Fluids (test code=CCDIFFBFCOL) Red Hematology - Fluids (test code=CCDIFFTUBE) EDTA Hematology - Fluids (test code=CCDIFFWBCA) 3320 /cumm Hematology - Fluids (test code=CCDIFFRBCA) [id number] /cumm Hematology - Fluids (test code=CCDIFFREFR) Note: The reference range and other method performancespecifications have not been established for this bodyfluid. The test result must be integrated into the clinicalcontext for interpretation. Source: PERICARDIAL FLUIDHematology - [id number] 08:17:00* Test Item Value Reference Range Comments Hematology - Fluids (test code=CCDIFFBFNE) 71 % Hematology - Fluids (test code=CCDIFFLY) 25 % Hematology - Fluids (test code=CCDIFFEO) 1 % Hematology - Fluids (test code=CCDIFFBASO) 1 % Hematology - Fluids (test code=CCDIFFNON) 2 % Non-Hematic cells consist of macrophages, endothelial,histiocytic and mesothelial cells. Hematology - Fluids (test code=CCDIFFDC) No abnormal cells seen during slide review by technologist. Source: PERICARDIAL FLUIDHematology - [id number] 08:17:00* Test Item Value Reference Range Comments Hematology - Fluids (test code=PATHF) PERIPHERAL BLOOD ELEMENTS.NEGATIVE FOR MALIGNANT CELLS.ELIAS BENJAMIN M.D.CPT 92329 Source: PERICARDIAL FLUIDChemistry - Body [id number] 20:24:00* Test Item Value Reference Range Comments Chemistry - Body Fluids (test code=FLUGLU) 43 mg/dL Not Available Fluid Source: PERICARDIAL FLUIDThe reference range and other method performancespecifications have not been established for this bodyfluid. The test result must be integrated into the clinicalcontext for interpretation. FLUID SOURCE: PERICARDIAL FLUIDChemistry - Body [id number] 20:24:00* Test Item Value Reference Range Comments Chemistry - Body Fluids (test code=FLUTP) 7.9 g/dL Not Available Fluid Source: []The reference range and other method performancespecifications have not been established for this bodyfluid. The test result must be integrated into the clinicalcontext for interpretation. FLUID SOURCE: PERICARDIAL FLUIDChemistry - Body [id number] 20:24:00* Test Item Value Reference Range Comments Chemistry - Body Fluids (test code=FLUAMY) 24 U/L Not Available The reference range and other method performancespecifications have not been established for this bodyfluid. The test result must be integrated into the clinicalcontext for interpretation. FLUID SOURCE: PERICARDIAL FLUIDChemistry - Body [id number] 20:24:00* Test Item Value Reference Range Comments Chemistry - Body Fluids (test code=FLULDH) 1815 U/L Not Available The reference range and other method performancespecifications have not been established for this bodyfluid. The test result must be integrated into the clinicalcontext for interpretation. FLUID SOURCE: PERICARDIAL FLUIDChemistry - Body [id number] 20:24:00* Test Item Value Reference Range Comments Chemistry - Body Fluids (test code=PHFLU) 7.4 Fluid Source: PERICARDIAL FLUID SOURCE: PERICARDIAL CGIYEJabvyyib8436-16-83 16:54:00* Test Item Value Reference Range Comments Accuchek (test code=ACU) 114 mg/dL 70-110 Avcijrid2880-21-76 13:58:00* Test Item Value Reference Range Comments Accuchek (test code=ACU) 110 mg/dL 70-110 Jwkukhiv3883-29-29 09:43:00* Test Item Value Reference Range Comments Accuchek (test code=ACU) 131 mg/dL 70-110 Ljtpvrpda2988-03-93 05:20:00* Test Item Value Reference Range Comments Chemistry (test code=NA-T) 133 mmol/L 136-145 Chemistry (test code=K-T) 5.8 mmol/L 3.5-5.1 Chemistry (test code=CL) 98 mmol/L 98-107 Chemistry (test code=CO2) 22 mmol/L 22-29 Chemistry (test code=ANGP) 19 mmol/L 10-20 Chemistry (test code=BUN) 59 mg/dL 8.9-20.6 Chemistry (test code=CREATT) 10.40 mg/dL 0.6-1.3 Chemistry (test code=EGFRMDRD) 5 Reference Range for Estimated GFR: Greater than 90 mL/min/1.73 m2NOTE:The MDRD equation has not been validated for use with theelderly (over 70 years of age), women, patien tswith serious comorbid condition or persons with extremes ofbody size, muscle mass, or nutritional status. Chemistry (test code=BCR) 5.67 Chemistry (test code=GLU-T) 146 mg/dL 70-105 Chemistry (test code=CA) 7.6 mg/dL 7.8-10.44 Chemistry (test code=ALB) 3.2 g/dL 3.5-5.0 Chemistry (test code=PHOS) 8.9 mg/dL 2.3-4.7 Hdvhzarvjv3532-72-80 05:12:00* Test Item Value Reference Range Comments Hematology (test code=WBCT) 13.9 thou/uL 4.8-10.8 Hematology (test code=RBCT) 2.98 mill/uL 4.70-6.10 Hematology (test code=HGBT) 9.7 g/dL 14.0-18.0 Hematology (test code=HCTT) 29.8 % 42.0-52.0 Hematology (test code=MCV) 99.8 fl 80.0-94.0 Hematology (test code=MCH) 32.6 pg 27.0-31.0 Hematology (test code=MCHC) 32.6 g/dL 32.0-36.0 Hematology (test code=RDW) 13.9 % 11.5-14.5 Hematology (test code=PLTT) 273 thou/uL 130-400 Hematology (test code=MPV) 7.6 fL 7.4-10.4 Hematology (test code=%NEUT) 80.9 % 42.0-75.0 Hematology (test code=%LYMPH) 12.2 % 21.0-51.0 Hematology (test code=%MONO) 4.9 % 0.0-10.0 Hematology (test code=%EOS) 1.6 % 0.0-10.0 Hematology (test code=%BASO) 0.4 % 0.0-1.0 Hematology (test code=NEUT#) 11.3 thou/uL 1.40-6.50 Hematology (test code=LYMPH#) 1.7 thou/uL 1.20-3.40 Hematology (test code=MONO#) 0.7 thou/uL 0.11-0.59 Hematology (test code=EOS#) 0.2 thou/uL 0.0-0.7 Hematology (test code=BASO#) 0.1 thou/uL 0.0-0.2 Ijyzlkjg3106-52-27 04:48:00* Test Item Value Reference Range Comments Accuchek (test code=ACU) 162 mg/dL 70-110 Fjtogedru7920-64-09 19:09:00* Test Item Value Reference Range Comments Chemistry (test code=TROPI-T) 0.031 ng/mL < 0.028 Reference Range 0.00 - 0.028 ng/mL Negative 0.029 - 0.29 ng/mL Indeterminate Greater or Equal to 0.3 ng/mL Strongly suggests DE [id number] 16:05:00* Test Item Value Reference Range Comments Chemistry (test code=TROPI-T) 0.032 ng/mL < 0.028 Reference Range 0.00 - 0.028 ng/mL Negative 0.029 - 0.29 ng/mL Indeterminate Greater or Equal to 0.3 ng/mL Strongly suggests DE [id number] 15:47:00* Test Item Value Reference Range Comments Chemistry (test code=CORTS) 14.80 ug/dL See Ranges REFERENCE RANGES: CORTISOL, serum Before 10 am 3.7 - 19.4 ug/dL After 5pm 2.9 - 17.3 ug/dL Is this an ACTH or Cortrosyn STIMULATION Test? [id number] 13:01:00* Test Item Value Reference Range Comments Chemistry (test code=CKMBM-T) 0.5 ng/mL 0-6.6 Chemistry (test code=TROPI-T) 0.037 ng/mL < 0.028 Reference Range 0.00 - 0.028 ng/mL Negative 0.029 - 0.29 ng/mL Indeterminate Greater or Equal to 0.3 ng/mL Strongly suggests DE [id number] 12:56:00* Test Item Value Reference Range Comments Chemistry (test code=LIP) 32 U/L 8-78 [id number] 12:56:00* Test Item Value Reference Range Comments Chemistry (test code=MG) 2.2 mg/dL 1.6-2.6 [id number] 12:51:00* Test Item Value Reference Range Comments Chemistry (test code=NA-T) 137 mmol/L 136-145 Chemistry (test code=K-T) 4.6 mmol/L 3.5-5.1 Chemistry (test code=CL) 99 mmol/L 98-107 Chemistry (test code=CO2) 24 mmol/L 22-29 Chemistry (test code=ANGP) 19 mmol/L 10-20 Chemistry (test code=BUN) 52 mg/dL 8.9-20.6 Chemistry (test code=CREATT) 9.73 mg/dL 0.6-1.3 Chemistry (test code=EGFRMDRD) 6 Reference Range for Estimated GFR: Greater than 90 mL/min/1.73 m2NOTE:The MDRD equation has not been validated for use with theelderly (over 70 years of age), women, patien tswith serious comorbid condition or persons with extremes ofbody size, muscle mass, or nutritional status. Chemistry (test code=GLU-T) 120 mg/dL 70-105 Chemistry (test code=CA) 8.0 mg/dL 7.8-10.44 Chemistry (test code=TBILI) 0.4 mg/dL 0.2-1.2 Chemistry (test code=TP) 7.7 g/dL 6.0-8.3 Chemistry (test code=ALB) 3.2 g/dL 3.5-5.0 Chemistry (test code=GLOB) 4.5 g/dL 2.4-3.5 Chemistry (test code=AG) 0.7 g/dL 1.2-2.2 Chemistry (test code=ALP) 166 U/L 40-150 Chemistry (test code=AST) 24 U/L 5-34 Chemistry (test code=ALT) Less than 7 U/L 8-55 Chemistry - [id number] 12:50:00* Test Item Value Reference Range Comments Chemistry - Lactate (test code=LACTSEP-T) 1.6 mmol/L 0.5-2.2 Xajunkfeox4943-44-91 12:34:00* Test Item Value Reference Range Comments Hematology (test code=WBCT) 11.6 thou/uL 4.8-10.8 Hematology (test code=RBCT) 2.93 mill/uL 4.70-6.10 Hematology (test code=HGBT) 9.8 g/dL 14.0-18.0 Hematology (test code=HCTT) 29.0 % 42.0-52.0 Hematology (test code=MCV) 99.0 fl 80.0-94.0 Hematology (test code=MCH) 33.4 pg 27.0-31.0 Hematology (test code=MCHC) 33.7 g/dL 32.0-36.0 Hematology (test code=RDW) 13.5 % 11.5-14.5 Hematology (test code=PLTT) 225 thou/uL 130-400 Hematology (test code=MPV) 8.2 fL 7.4-10.4 Hematology (test code=%NEUT) 78.5 % 42.0-75.0 Hematology (test code=%LYMPH) 13.1 % 21.0-51.0 Hematology (test code=%MONO) 5.4 % 0.0-10.0 Hematology (test code=%EOS) 2.5 % 0.0-10.0 Hematology (test code=%BASO) 0.6 % 0.0-1.0 Hematology (test code=NEUT#) 9.1 thou/uL 1.40-6.50 Hematology (test code=LYMPH#) 1.5 thou/uL 1.20-3.40 Hematology (test code=MONO#) 0.6 thou/uL 0.11-0.59 Hematology (test code=EOS#) 0.3 thou/uL 0.0-0.7 Hematology (test code=BASO#) 0.1 thou/uL 0.0-0.2 Gram [id number] 11:20:00* Test Item Value Reference Range Comments Gram Stain (test code=GS) TNP GRAM STAIN:PART OF THE ROUTINE BODY FLUID CULTURE. Comment fluid already sent to labBody Fluid [id number] 11:20:00* Test Item Value Reference Range Comments Body Fluid Culture (test code=FLUIDC) GS Body Fluid Culture (test code=FLUIDC2) NOS Body Fluid Culture (test code=FLUIDC) NO GROWTH IN 5 DAYS Body Fluid Culture (test code=FLUIDC2) GS Comment fluid already sent to fdyLhzlxlwb9248-98-00 01:55:00* Test Item Value Reference Range Comments Accuchek (test code=ACU) 115 mg/dL 70-110 Biymupdi5032-06-63 21:06:00* Test Item Value Reference Range Comments Accuchek (test code=ACU) 129 mg/dL 70-110 Siffjlfp0231-88-48 17:10:00* Test Item Value Reference Range Comments Accuchek (test code=ACU) 103 mg/dL 70-110 Ivddnsqkl7459-40-62 08:16:00* Test Item Value Reference Range Comments Chemistry (test code=NA-T) 132 mmol/L 136-145 Chemistry (test code=K-T) 5.1 mmol/L 3.5-5.1 Chemistry (test code=CL) 94 mmol/L 98-107 Chemistry (test code=CO2) 24 mmol/L 22-29 Chemistry (test code=ANGP) 19 mmol/L 10-20 Chemistry (test code=BUN) 59 mg/dL 8.9-20.6 Chemistry (test code=CREATT) 8.86 mg/dL 0.6-1.3 Chemistry (test code=EGFRMDRD) 6 Reference Range for Estimated GFR: Greater than 90 mL/min/1.73 m2NOTE:The MDRD equation has not been validated for use with theelderly (over 70 years of age), women, patien tswith serious comorbid condition or persons with extremes ofbody size, muscle mass, or nutritional status. Chemistry (test code=GLU-T) 88 mg/dL 70-105 Chemistry (test code=CA) 8.2 mg/dL 7.8-10.44 Toptcwjg9529-62-02 06:04:00* Test Item Value Reference Range Comments Accuchek (test code=ACU) 106 mg/dL 70-110 Ucwxpsyjnm7194-61-09 05:23:00* Test Item Value Reference Range Comments Hematology (test code=WBCT) 12.5 thou/uL 4.8-10.8 Hematology (test code=RBCT) 3.09 mill/uL 4.70-6.10 Hematology (test code=HGBT) 10.2 g/dL 14.0-18.0 Hematology (test code=HCTT) 30.1 % 42.0-52.0 Hematology (test code=MCV) 97.3 fl 80.0-94.0 Hematology (test code=MCH) 32.9 pg 27.0-31.0 Hematology (test code=MCHC) 33.8 g/dL 32.0-36.0 Hematology (test code=RDW) 13.2 % 11.5-14.5 Hematology (test code=PLTT) 169 thou/uL 130-400 Hematology (test code=MPV) 8.3 fL 7.4-10.4 Hematology (test code=%NEUT) 78.2 % 42.0-75.0 Hematology (test code=%LYMPH) 11.3 % 21.0-51.0 Hematology (test code=%MONO) 6.0 % 0.0-10.0 Hematology (test code=%EOS) 4.3 % 0.0-10.0 Hematology (test code=%BASO) 0.2 % 0.0-1.0 Hematology (test code=NEUT#) 9.7 thou/uL 1.40-6.50 Hematology (test code=LYMPH#) 1.4 thou/uL 1.20-3.40 Hematology (test code=MONO#) 0.8 thou/uL 0.11-0.59 Hematology (test code=EOS#) 0.5 thou/uL 0.0-0.7 Hematology (test code=BASO#) 0.0 thou/uL 0.0-0.2 Gcrtexnz0759-43-42 21:50:00* Test Item Value Reference Range Comments Accuchek (test code=ACU) 137 mg/dL 70-110 Culture, Iyevk2873-92-20 09:33:00* Test Item Value Reference Range Comments Culture, Blood (test code=BC) Please refer to culture #[id number] for call information. Culture, Blood (test code=BC1) GSBC Culture, Blood (test code=BC1) GPC CL O:SAUR (test code=SAUR) Staphylococcus aureus Amoxicillin * (test code=AXD) Amoxicillin/Clavulanic * (test code=ACD) Azithromycin * (test code=AZID) Cefaclor * (test code=CFD) Cefepime * (test code=CPED) Cefotaxime * (test code=CFTD) Ceftazidime * (test code=CAZD) Ceftriaxone * (test code=CTRD) Cefuroxime (sodium) * (test code=CRMND) Ciprofloxacin (test code=CIPGP63) <=0.5 Clarithromycin * (test code=CLD) Clindamycin (test code=CM) <=0.25 Doxycycline * (test code=DOXD) Erthromycin (test code=EGP) <=0.25 Gentamicin (test code=GMGP) <=0.5 Imipenem (test code=IMD) Linezolid (test code=LNZGP) 2 Levofloxacin (test code=LEVGP) 0.25 Moxifloxacin (test code=MXFGP) <=0.25 Ofloxacin * (test code=OFLGP) Oxacillin (test code=OX1) 0.5 Piperacillin * (test code=PIPD) Rifampin (test code=RIFGP) <=0.5 Tetracycline (test code=TEGP) <=1 Trimethoprim/Sulfamethoxazole (test code=SXTGP) <=10 Vancomycin (test code=VAGP) 1 Culture, Blood (test code=BC1.1) How many BC are positive? Culture, Blood (test code=BC1.1) Two of two culture sets drawn are positive. Culture, [id number] 09:32:00* Test Item Value Reference Range Comments Culture, Blood (test code=BC) Refer to culture #[id number] for susceptibilities. Culture, Blood (test code=BC1) by: Nataly Guerra on 03/21/18 at 1242. Culture, Blood (test code=BC1) GSBC Culture, Blood (test code=BC1) GPC CL O:SAUR (test code=SAUR) Staphylococcus aureus Culture, Blood (test code=BC1.1) How many BC are positive? Culture, Blood (test code=BC1.1) Two of two culture sets drawn are positive. Riwygjyiiv9420-69-32 06:52:00* Test Item Value Reference Range Comments Hematology (test code=WBCT) 14.2 thou/uL 4.8-10.8 Hematology (test code=RBCT) 2.97 mill/uL 4.70-6.10 Hematology (test code=HGBT) 10.1 g/dL 14.0-18.0 Hematology (test code=HCTT) 29.0 % 42.0-52.0 Hematology (test code=MCV) 97.4 fl 80.0-94.0 Hematology (test code=MCH) 34.0 pg 27.0-31.0 Hematology (test code=MCHC) 34.9 g/dL 32.0-36.0 Hematology (test code=RDW) 13.0 % 11.5-14.5 Hematology (test code=PLTT) 152 thou/uL 130-400 Hematology (test code=MPV) 8.8 fL 7.4-10.4 Hematology (test code=NE) 77 % 42-75 Hematology (test code=BA) 2 % 5-11 Hematology (test code=LY) 9 % 21-51 Hematology (test code=MO) 7 % 0-10 Hematology (test code=EO) 4 % 0-10 Hematology (test code=MY) 1 % 0-0 Nvxngejnt6253-40-46 06:04:00* Test Item Value Reference Range Comments Chemistry (test code=NA-T) 132 mmol/L 136-145 Chemistry (test code=K-T) 4.4 mmol/L 3.5-5.1 Chemistry (test code=CL) 97 mmol/L 98-107 Chemistry (test code=CO2) 21 mmol/L 22-29 Chemistry (test code=ANGP) 18 mmol/L 10-20 Chemistry (test code=BUN) 42 mg/dL 8.9-20.6 Chemistry (test code=CREATT) 6.76 mg/dL 0.6-1.3 Chemistry (test code=EGFRMDRD) 9 Reference Range for Estimated GFR: Greater than 90 mL/min/1.73 m2NOTE:The MDRD equation has not been validated for use with theelderly (over 70 years of age), women, patien tswith serious comorbid condition or persons with extremes ofbody size, muscle mass, or nutritional status. Chemistry (test code=GLU-T) 108 mg/dL 70-105 Chemistry (test code=CA) 8.2 mg/dL 7.8-10.44 Zmnqhxupps1593-65-92 09:27:00* Test Item Value Reference Range Comments Hematology (test code=WBCT) 17.5 thou/uL 4.8-10.8 Hematology (test code=RBCT) 2.89 mill/uL 4.70-6.10 Hematology (test code=HGBT) 9.5 g/dL 14.0-18.0 Hematology (test code=HCTT) 27.5 % 42.0-52.0 Hematology (test code=MCV) 94.9 fl 80.0-94.0 Hematology (test code=MCH) 32.8 pg 27.0-31.0 Hematology (test code=MCHC) 34.5 g/dL 32.0-36.0 Hematology (test code=RDW) 12.8 % 11.5-14.5 Hematology (test code=PLTT) 129 thou/uL 130-400 Hematology (test code=MPV) 8.7 fL 7.4-10.4 Hematology (test code=NE) 84 % 42-75 Hematology (test code=BA) 2 % 5-11 Hematology (test code=LY) 8 % 21-51 Hematology (test code=MO) 6 % 0-10 Hematology (test code=POLY) SLIGHT=2-3 cells (100X) 0-2/hpf Hematology (test code=PCOMMENT) Appears Decreased Hbmjzyolz9272-69-02 08:49:00* Test Item Value Reference Range Comments Chemistry (test code=NA-T) 131 mmol/L 136-145 Chemistry (test code=K-T) 4.0 mmol/L 3.5-5.1 Chemistry (test code=CL) 94 mmol/L 98-107 Chemistry (test code=CO2) 25 mmol/L 22-29 Chemistry (test code=ANGP) 16 mmol/L 10-20 Chemistry (test code=BUN) 65 mg/dL 8.9-20.6 Chemistry (test code=CREATT) 9.90 mg/dL 0.6-1.3 Chemistry (test code=EGFRMDRD) 6 Reference Range for Estimated GFR: Greater than 90 mL/min/1.73 m2NOTE:The MDRD equation has not been validated for use with theelderly (over 70 years of age), women, patien tswith serious comorbid condition or persons with extremes ofbody size, muscle mass, or nutritional status. Chemistry (test code=GLU-T) 100 mg/dL 70-105 Chemistry (test code=CA) 7.9 mg/dL 7.8-10.44 Hematology - [id number] 08:20:00* Test Item Value Reference Range Comments Hematology - Fluids (test code=CCDIFFBF) SYNOVIAL FLUID Hematology - Fluids (test code=CCDIFFCL) Cloudy/Turbid Clear Hematology - Fluids (test code=CCDIFFBFCOL) [facility] Hematology - Fluids (test code=CCDIFFTUBE) EDTA Hematology - Fluids (test code=CCDIFFWBCA) 262 /cumm Hematology - Fluids (test code=CCDIFFBFRBCM) 3630 /cumm Hematology - Fluids (test code=CCDIFFREFR) Note: The reference range and other method performancespecifications have not been established for this bodyfluid. The test result must be integrated into the clinicalcontext for interpretation. Comment fluid already sent to labSource: KNEE ASPIRATEHematology - Fluids 2018-03-22 08:20:00* Test Item Value Reference Range Comments Hematology - Fluids (test code=CCDIFFBFNE) 100 % Hematology - Fluids (test code=CCDIFFDC) WBC'S APPEAR VERY DENATURED AND DIFFICULT TO DETERMINE TYPE.THE SPECIMEN WILL BE REVIEWED BY A PATHOLOGIST ON 03/22/18.03/21/18 @ [facility]. LAB.[facility] Comment fluid already sent to [employer]ource: KNEE ASPIRATEHematology - Fluids 2018-03-22 08:20:00* Test Item Value Reference Range Comments Hematology - Fluids (test code=PATHF) PERIPHERAL BLOOD ELEMENTS.NEGATIVE FOR CRYSTALS (POLARIZED LIGHT EXAMINATION).ELIAS BENJAMIN M.D.CPT 48041, 45459 Comment fluid already sent to [employer]ourMolecular Templates: KNEE SUJMMJSUYwvxifyce7214-73-85 05:52:00* Test Item Value Reference Range Comments Chemistry (test code=CCTPI) RESULT DECREASING Chemistry (test code=TROPI-T) 1.207 ng/mL < 0.028 Critical value! Reference Range 0.00 - 0.028 ng/mL Negative 0.029 - 0.29 ng/mL Indeterminate Greater or Equal to 0.3 ng/mL Strongly suggests DE Bbsmjkjma4738-38-47 06:34:00* Test Item Value Reference Range Comments Chemistry (test code=NA-T) 133 mmol/L 136-145 Chemistry (test code=K-T) 4.0 mmol/L 3.5-5.1 Chemistry (test code=CL) 95 mmol/L 98-107 Chemistry (test code=CO2) 24 mmol/L 22-29 Chemistry (test code=ANGP) 18 mmol/L 10-20 Chemistry (test code=BUN) 50 mg/dL 8.9-20.6 Chemistry (test code=CREATT) 8.24 mg/dL 0.6-1.3 Chemistry (test code=EGFRMDRD) 7 Reference Range for Estimated GFR: Greater than 90 mL/min/1.73 m2NOTE:The MDRD equation has not been validated for use with theelderly (over 70 years of age), women, patien tswith serious comorbid condition or persons with extremes ofbody size, muscle mass, or nutritional status. Chemistry (test code=GLU-T) 109 mg/dL 70-105 Chemistry (test code=CA) 8.4 mg/dL 7.8-10.44 Chemistry (test code=TBILI) 0.6 mg/dL 0.2-1.2 Chemistry (test code=TP) 7.1 g/dL 6.0-8.3 Chemistry (test code=ALB) 3.1 g/dL 3.5-5.0 Chemistry (test code=GLOB) 4.0 g/dL 2.4-3.5 Chemistry (test code=AG) 0.8 g/dL 1.2-2.2 Chemistry (test code=ALP) 155 U/L 40-150 Chemistry (test code=AST) 25 U/L 5-34 Chemistry (test code=ALT) 12 U/L 8-55 Snjsonaen4670-76-13 06:34:00* Test Item Value Reference Range Comments Chemistry (test code=CHOL) 79 mg/dl < 200 Desired Chemistry (test code=TRIG) 184 mg/dL Less than 150 Chemistry (test code=HDL) 15 mg/dL >60 Neg Risk Adult HDL levels in terms of risk for Coronary Heart Disease > or Equal to 60 mg/dL Negative Risk < 40 mg/dL HIGH Risk Chemistry (test code=LDL) 27 mg/dL Levels in terms of risk for coronary heart disease: Desirable: Less than 130 mg/dL Borderline High Risk: 130 - 159 mg/dL High Risk: Greater than 160 mg/dL Chemistry (test code=CRISK) 5.3 Less than 4.5 Adult levels in terms of risk for Coronary Heart Disease: Dangerous Level: Greater than 14.3 High: 6.7 - 14.3 Average: 4.0 - 6.7 Below average: 2.7 - 4.0 Protection probable: Less than 2.7 Yxlcdfcyd9246-46-57 06:08:00* Test Item Value Reference Range Comments Chemistry (test code=CCTPI) JAMARCUS.JCC @608 Chemistry (test code=TROPI-T) 1.502 ng/mL < 0.028 Critical value! Reference Range 0.00 - 0.028 ng/mL Negative 0.029 - 0.29 ng/mL Indeterminate Greater or Equal to 0.3 ng/mL Strongly suggests DE Amvxmytlno4097-44-02 05:50:00* Test Item Value Reference Range Comments Hematology (test code=WBCT) 13.3 thou/uL 4.8-10.8 Hematology (test code=RBCT) 3.06 mill/uL 4.70-6.10 Hematology (test code=HGBT) 10.3 g/dL 14.0-18.0 Hematology (test code=HCTT) 29.6 % 42.0-52.0 Hematology (test code=MCV) 96.9 fl 80.0-94.0 Hematology (test code=MCH) 33.8 pg 27.0-31.0 Hematology (test code=MCHC) 34.9 g/dL 32.0-36.0 Hematology (test code=RDW) 12.8 % 11.5-14.5 Hematology (test code=PLTT) 142 thou/uL 130-400 Hematology (test code=MPV) 9.0 fL 7.4-10.4 Hematology (test code=%NEUT) 74.8 % 42.0-75.0 Hematology (test code=%LYMPH) 12.7 % 21.0-51.0 Hematology (test code=%MONO) 8.9 % 0.0-10.0 Hematology (test code=%EOS) 3.5 % 0.0-10.0 Hematology (test code=%BASO) 0.1 % 0.0-1.0 Hematology (test code=NEUT#) 10.0 thou/uL 1.40-6.50 Hematology (test code=LYMPH#) 1.7 thou/uL 1.20-3.40 Hematology (test code=MONO#) 1.2 thou/uL 0.11-0.59 Hematology (test code=EOS#) 0.5 thou/uL 0.0-0.7 Hematology (test code=BASO#) 0.0 thou/uL 0.0-0.2 Resp Viral Pathogen Pnl, [id number] 19:36:00* Test Item Value Reference Range Comments Resp Viral Pathogen Pnl, NAAT (test code=RESPVIRAL) Rhinovirus DETECTED by Verigene nucleic acid amplification Resp Viral Pathogen Pnl, NAAT (test code=RESPVIRAL1) Metapneumovirus, Parainfluenza 1,2,3 and 4, and Rhinovirus Resp Viral Pathogen Pnl, NAAT (test code=RESPVIRAL1) VRSVB Resp Viral Pathogen Pnl, NAAT (test code=RESPVIRAL1) N [id number] 09:39:00* Test Item Value Reference Range Comments Coagulation (test code=PT-T) 16.5 SEC 12.0-14.7 Coagulation (test code=INR) 1.3 ATTENTION: READ CAREFULLY The recommended therapeutic ranges for oral anticoagulanttreatments are: Low Intensity: 1.5 - 2.0 Moderate Intensity: 2.0 - 3.0 High Intensity (1): 2.5 - 3.5 High Intensity (2): 3.0 - 4.0 CRITICAL: > 4.0 Coagulation (test code=PTT) 79.0 SEC 22.9-36.1 Anticoagulant? NONEOther Comments: pt to start on heparin dripComment lab notifi xqKxvohuiht5522-31-05 09:03:00* Test Item Value Reference Range Comments Chemistry (test code=CCTPI) RESULT DECREASING Chemistry (test code=TROPI-T) 2.121 ng/mL < 0.028 Critical value! Reference Range 0.00 - 0.028 ng/mL Negative 0.029 - 0.29 ng/mL Indeterminate Greater or Equal to 0.3 ng/mL Strongly suggests DE Xykigpqvhwl6962-50-64 08:41:00* Test Item Value Reference Range Comments Coagulation (test code=PTT) 73.5 SEC 22.9-36.1 Comment Baseline 6hrs after starting drip; then protocolAnticoagulant? IV HEPA CSQDdedwpizru8655-77-41 08:29:00* Test Item Value Reference Range Comments Hematology (test code=HGBT) 10.1 g/dL 14.0-18.0 Hematology (test code=HCTT) 28.3 % 42.0-52.0 Hematology (test code=PLTT) 121 thou/uL 130-400 Comment Baseline and Q48H while patient on Heparin KpuuAdkvplxqz1507-26-92 06:17:00* Test Item Value Reference Range Comments Chemistry (test code=CCTPI) RESULT DECREASING Chemistry (test code=TROPI-T) 2.362 ng/mL < 0.028 Critical value! Reference Range 0.00 - 0.028 ng/mL Negative 0.029 - 0.29 ng/mL Indeterminate Greater or Equal to 0.3 ng/mL Strongly suggests DE Mxkzrtpdp2842-01-05 02:34:00* Test Item Value Reference Range Comments Chemistry (test code=CCTPI) 2NO.ADG@0233 Chemistry (test code=TROPI-T) 2.574 ng/mL < 0.028 Critical value! Reference Range 0.00 - 0.028 ng/mL Negative 0.029 - 0.29 ng/mL Indeterminate Greater or Equal to 0.3 ng/mL Strongly suggests DE Rmaadegnj8157-08-50 23:55:00* Test Item Value Reference Range Comments Chemistry (test code=NA-T) 135 mmol/L 136-145 Chemistry (test code=K-T) 3.4 mmol/L 3.5-5.1 Chemistry (test code=CL) 97 mmol/L 98-107 Chemistry (test code=CO2) 28 mmol/L 22-29 Chemistry (test code=ANGP) 13 mmol/L 10-20 Chemistry (test code=BUN) 25 mg/dL 8.9-20.6 Chemistry (test code=CREATT) 5.25 mg/dL 0.6-1.3 Chemistry (test code=EGFRMDRD) 12 Reference Range for Estimated GFR: Greater than 90 mL/min/1.73 m2NOTE:The MDRD equation has not been validated for use with theelderly (over 70 years of age), women, patien tswith serious comorbid condition or persons with extremes ofbody size, muscle mass, or nutritional status. Chemistry (test code=GLU-T) 108 mg/dL 70-105 Chemistry (test code=CA) 8.6 mg/dL 7.8-10.44 Chemistry (test code=TBILI) 0.7 mg/dL 0.2-1.2 Chemistry (test code=TP) 6.9 g/dL 6.0-8.3 Chemistry (test code=ALB) 3.2 g/dL 3.5-5.0 Chemistry (test code=GLOB) 3.7 g/dL 2.4-3.5 Chemistry (test code=AG) 0.9 g/dL 1.2-2.2 Chemistry (test code=ALP) 120 U/L 40-150 Chemistry (test code=AST) 25 U/L 5-34 Chemistry (test code=ALT) 12 U/L 8-55 Cdcnywybd7310-43-83 23:54:00* Test Item Value Reference Range Comments Chemistry (test code=CCTPI) PHA.CJC1@2354 Chemistry (test code=CKMBM-T) 1.1 ng/mL 0-6.6 Chemistry (test code=TROPI-T) 2.329 ng/mL < 0.028 Critical value! Reference Range 0.00 - 0.028 ng/mL Negative 0.029 - 0.29 ng/mL Indeterminate Greater or Equal to 0.3 ng/mL Strongly suggests DE [id number] 23:33:00* Test Item Value Reference Range Comments Hematology (test code=WBCT) 14.0 thou/uL 4.8-10.8 Hematology (test code=RBCT) 3.08 mill/uL 4.70-6.10 Hematology (test code=HGBT) 10.4 g/dL 14.0-18.0 Hematology (test code=HCTT) 29.4 % 42.0-52.0 Hematology (test code=MCV) 95.5 fl 80.0-94.0 Hematology (test code=MCH) 33.7 pg 27.0-31.0 Hematology (test code=MCHC) 35.3 g/dL 32.0-36.0 Hematology (test code=RDW) 12.8 % 11.5-14.5 Hematology (test code=PLTT) 130 thou/uL 130-400 Hematology (test code=MPV) 8.5 fL 7.4-10.4 Hematology (test code=%NEUT) 77.5 % 42.0-75.0 Hematology (test code=%LYMPH) 10.6 % 21.0-51.0 Hematology (test code=%MONO) 8.9 % 0.0-10.0 Hematology (test code=%EOS) 2.0 % 0.0-10.0 Hematology (test code=%BASO) 1.0 % 0.0-1.0 Hematology (test code=NEUT#) 10.9 thou/uL 1.40-6.50 Hematology (test code=LYMPH#) 1.5 thou/uL 1.20-3.40 Hematology (test code=MONO#) 1.3 thou/uL 0.11-0.59 Hematology (test code=EOS#) 0.3 thou/uL 0.0-0.7 Hematology (test code=BASO#) 0.1 thou/uL 0.0-0.2 Chemistry - [id number] 12:59:00* Test Item Value Reference Range Comments Chemistry - Lactate (test code=LACTSEP-T) 1.6 mmol/L 0.5-2.2 Qsjzpdzav1297-85-22 12:50:00* Test Item Value Reference Range Comments Chemistry (test code=NA-T) 134 mmol/L 136-145 Chemistry (test code=K-T) 4.3 mmol/L 3.5-5.1 Chemistry (test code=CL) 95 mmol/L 98-107 Chemistry (test code=CO2) 26 mmol/L 22-29 Chemistry (test code=ANGP) 17 mmol/L 10-20 Chemistry (test code=BUN) 36 mg/dL 8.9-20.6 Chemistry (test code=CREATT) 7.41 mg/dL 0.7-1.3 Chemistry (test code=EGFRMDRD) 8 Reference Range for Estimated GFR: Greater than 90 mL/min/1.73 m2NOTE:The MDRD equation has not been validated for use with theelderly (over 70 years of age), women, patien tswith serious comorbid condition or persons with extremes ofbody size, muscle mass, or nutritional status. Chemistry (test code=GLU-T) 172 mg/dL 70-105 Chemistry (test code=CA) 8.9 mg/dL 7.8-10.44 Chemistry (test code=TBILI) 0.6 mg/dL 0.2-1.2 Chemistry (test code=TP) 7.3 g/dL 6.0-8.3 Chemistry (test code=ALB) 3.3 g/dL 3.5-5.0 Chemistry (test code=GLOB) 4.0 g/dL 2.4-3.5 Chemistry (test code=AG) 0.8 g/dL 1.2-2.2 Chemistry (test code=ALP) 100 U/L 40-150 Chemistry (test code=AST) 26 U/L 5-34 Chemistry (test code=ALT) 12 U/L 8-55 [id number] 12:39:00* Test Item Value Reference Range Comments Hematology (test code=WBCT) 15.5 thou/uL 4.8-10.8 Hematology (test code=RBCT) 3.47 mill/uL 4.70-6.10 Hematology (test code=HGBT) 11.4 g/dL 14.0-18.0 Hematology (test code=HCTT) 31.7 % 42.0-52.0 Hematology (test code=MCV) 91.5 fl 80.0-94.0 Hematology (test code=MCH) 33.0 pg 27.0-31.0 Hematology (test code=MCHC) 36.0 g/dL 32.0-36.0 Hematology (test code=RDW) 12.9 % 11.5-14.5 Hematology (test code=PLTT) 128 thou/uL 130-400 Hematology (test code=MPV) 8.4 fL 7.4-10.4 Hematology (test code=%NEUT) 85.8 % 42.0-75.0 Hematology (test code=%LYMPH) 7.5 % 21.0-51.0 Hematology (test code=%MONO) 5.4 % 0.0-10.0 Hematology (test code=%EOS) 0.6 % 0.0-10.0 Hematology (test code=%BASO) 0.8 % 0.0-1.0 Hematology (test code=NEUT#) 13.3 thou/uL 1.40-6.50 Hematology (test code=LYMPH#) 1.2 thou/uL 1.20-3.40 Hematology (test code=MONO#) 0.8 thou/uL 0.11-0.59 Hematology (test code=EOS#) 0.1 thou/uL 0.0-0.7 Hematology (test code=BASO#) 0.1 thou/uL 0.0-0.2 ALPHA FETOPROTEIN (AFP), TUMOR [id number] 15:52:00* Test Item Value Reference Range Comments ALPHA-FETOPROTEIN (BEAKER) (test hglq=7520) 4.9 ng/mL <10.0 HEPATITIS B SURFACE [id number] 15:52:00* Test Item Value Reference Range Comments HEPATITIS B SURFACE ANTIBODY (BEAKER) (test jtma=900) 315.1 mIU/mL <8.0 COMPREHENSIVE METABOLIC [id number] 15:36:00* Test Item Value Reference Range Comments TOTAL PROTEIN (BEAKER) (test nsxy=054) 8.4 gm/dL 6.0-8.3 ALBUMIN (BEAKER) (test mdpf=6500) 4.1 g/dL 3.5-5.0 ALKALINE PHOSPHATASE (BEAKER) (test ffdc=780) 210 U/L 40-150 BILIRUBIN TOTAL (BEAKER) (test cuue=158) 0.7 mg/dL 0.2-1.2 SODIUM (BEAKER) (test pqhx=211) 140 meq/L 136-145 POTASSIUM (BEAKER) (test iqed=430) 4.6 meq/L 3.5-5.1 CHLORIDE (BEAKER) (test nayp=642) 99 meq/L 98-107 CO2 (BEAKER) (test rodt=171) 27 meq/L 22-29 BLOOD UREA NITROGEN (BEAKER) (test ftxz=790) 41 mg/dL 7-21 CREATININE (BEAKER) (test lopp=590) 7.00 mg/dL 0.57-1.25 GLUCOSE RANDOM (BEAKER) (test ljbq=126) 86 mg/dL 70-105 CALCIUM (BEAKER) (test onmx=289) 9.6 mg/dL 8.4-10.2 AST (SGOT) (BEAKER) (test zefl=596) 39 U/L 5-34 ALT (SGPT) (BEAKER) (test izft=754) 25 U/L 6-55 EGFR (BEAKER) (test bnky=5850) mL/min/1.73 sq m INSUFFICIENT CLINICAL DATA TO CALCULATE ESTIMATED GFR. CT, ABDOMEN, [id number] 15:34:00Referring: Dr. Stanton CornejoSt. [facility] Campustocol-Triple PhaseFINAL REPORT CT scan of the abdomen. HISTORY: Cirrhosis, end-stage renal disease. COMPARISON STUDY: February 03, 2017. TECHNIQUE: Contiguous helical slices were acquired through the abdomen both pre and post administration of intravenous contrast in a dynamic fashion. No oral contrast was administered. This exam was performed according to our department dose optimization program which includes automated exposure control, adjustment of the mA and/or kV according to the patient's size and/or use of iterative reconstruction technique. FINDINGS: The lung bases are clear. The liver is nodular and cirrhotic in appearance. Post administration of intravenous contrast and dynamic fashion, no suspicious enhancing masses are identified. No areas of washout are seen. The gallbladder and biliary tree are within normal limits. The main portal vein is widely patent measuring 1.8 cm. The spleen is enlarged measuring 19.1 cm in length. The pancreas and adrenal glands are within normal limits. Both [place] kidneys are atrophic in appearance with several calcifications, possibly vascular calcifications. There are no dilated loops of bowel seen to suggest obstruction. The aorta is normal in caliber. Atherosclerosis is seen. Enlarged retroperitoneal lymph nodes are seen measuring up to 2.2 x 2.8 cm in the peripancreatic region. Bone windows demonstrate degenerative changes. A 2 cm lytic focus with surrounding sclerosis is seen at T11, stable from previous. IMPRESSION:1. Nodular, cirrhotic appearing liver with no suspicious masses.2. Splenomegaly.3. End-stage kidneys.4. Stable enlarged retroperitoneal lymph nodes. Signed: Shailesh Silver MDReport Verified Date/Time: 12/22/2017 15:34:59 Reading Location: [address] Radiology Readi Room RUBIN, [id number] 15:33:00* Test Item Value Reference Range Comments BILIRUBIN DIRECT (BEAKER) (test phdl=537) 0.2 mg/dL 0.1-0.5 PROTHROMBIN TIME/UFM8637-62-71 14:56:00* Test Item Value Reference Range Comments PROTIME (BEAKER) (test pdns=753) 15.4 seconds 11.7-14.7 INR (BEAKER) (test pzjg=157) 1.2 <=5.9 RECOMMENDED COUMADIN/WARFARIN INR THERAPY RANGESSTANDARD DOSE: 2.0 - 3.0 Inclu arabella: PROPHYLAXIS for venous thrombosis, systemic embolization; TREATMENT for jan ous thrombosis and/or pulmonary embolus.HIGH RISK: Target INR is 2.5-3.5 for pat ients with mechanical heart valves.CBC W/PLT COUNT & AUTO MMHVUPOXKKTU7300-07-37 14:47:00* Test Item Value Reference Range Comments WHITE BLOOD CELL COUNT (BEAKER) (test nliw=089) 5.2 K/ L 3.5-10.5 RED BLOOD CELL COUNT (BEAKER) (test mgbn=987) 4.02 M/ L 4.63-6.08 HEMOGLOBIN (BEAKER) (test evog=581) 12.4 GM/DL 13.7-17.5 HEMATOCRIT (BEAKER) (test czad=395) 37.6 % 40.1-51.0 MEAN CORPUSCULAR VOLUME (BEAKER) (test xcfu=070) 93.5 fL 79.0-92.2 MEAN CORPUSCULAR HEMOGLOBIN (BEAKER) (test nzpg=718) 30.8 pg 25.7-32.2 MEAN CORPUSCULAR HEMOGLOBIN CONC (BEAKER) (test xtvi=054) 33.0 GM/DL 32.3-36.5 RED CELL DISTRIBUTION WIDTH (BEAKER) (test jiqs=785) 13.2 % 11.6-14.4 PLATELET COUNT (BEAKER) (test umyw=550) 111 K/CU MM 150-450 MEAN PLATELET VOLUME (BEAKER) (test tdws=337) 11.6 fL 9.4-12.4 NUCLEATED RED BLOOD CELLS (BEAKER) (test iimq=906) 0 /100 WBC 0-0 NEUTROPHILS RELATIVE PERCENT (BEAKER) (test ffug=297) 56 % LYMPHOCYTES RELATIVE PERCENT (BEAKER) (test mupb=288) 28 % MONOCYTES RELATIVE PERCENT (BEAKER) (test dljy=099) 9 % EOSINOPHILS RELATIVE PERCENT (BEAKER) (test stpu=967) 6 % BASOPHILS RELATIVE PERCENT (BEAKER) (test zxsg=376) 1 % NEUTROPHILS ABSOLUTE COUNT (BEAKER) (test lerd=442) 2.96 K/ L 1.78-5.38 LYMPHOCYTES ABSOLUTE COUNT (BEAKER) (test xxne=850) 1.47 K/ L 1.32-3.57 MONOCYTES ABSOLUTE COUNT (BEAKER) (test egzf=326) 0.45 K/ L 0.30-0.82 EOSINOPHILS ABSOLUTE COUNT (BEAKER) (test hxeh=789) 0.30 K/ L 0.04-0.54 BASOPHILS ABSOLUTE COUNT (BEAKER) (test cack=631) 0.05 K/ L 0.01-0.08 IMMATURE GRANULOCYTES-RELATIVE PERCENT (BEAKER) (test tnds=3050) 0 % 0-1 Mqjjdwbs0758-97-72 09:00:00* Test Item Value Reference Range Comments Accuchek (test code=ACU) 98 mg/dL 70-110 Gvmgqnsd6598-61-90 08:23:00* Test Item Value Reference Range Comments Accuchek (test code=ACU) 85 mg/dL 70-110 Eddbaqyl0268-77-00 18:32:00* Test Item Value Reference Range Comments Accuchek (test code=ACU) 170 mg/dL 70-110 Tvruzjqi7842-70-09 09:46:00* Test Item Value Reference Range Comments Accuchek (test code=ACU) 94 mg/dL 70-110 Jbhkydyc9987-57-38 09:10:00* Test Item Value Reference Range Comments Accuchek (test code=ACU) 115 mg/dL 70-110 Meqwfeng3441-14-00 08:06:00* Test Item Value Reference Range Comments Accuchek (test code=ACU) 104 mg/dL 70-110 Khpbsshe4799-51-65 08:04:00* Test Item Value Reference Range Comments Accuchek (test code=ACU) 129 mg/dL 70-110 Saeqtjuy2135-71-73 07:08:00* Test Item Value Reference Range Comments Accuchek (test code=ACU) 152 mg/dL 70-110 Kzuvxepy1913-24-99 08:58:00* Test Item Value Reference Range Comments Accuchek (test code=ACU) 101 mg/dL 70-110 Eemkmoxk5303-90-12 14:29:00* Test Item Value Reference Range Comments Accuchek (test code=ACU) 115 mg/dL 70-110 Dvemvoze0463-76-81 03:59:00* Test Item Value Reference Range Comments Accuchek (test code=ACU) 89 mg/dL 70-110 Dtmpymqf5438-64-87 02:31:00* Test Item Value Reference Range Comments Accuchek (test code=ACU) 104 mg/dL 70-110 Vbvrmytz5722-02-95 02:31:00* Test Item Value Reference Range Comments Accuchek (test code=ACU) 114 mg/dL 70-110 Qlgbmdhm8411-13-50 02:31:00* Test Item Value Reference Range Comments Accuchek (test code=ACU) 169 mg/dL 70-110 Chemistry - Vyhriety5993-06-14 15:31:00* Test Item Value Reference Range Comments Chemistry - Specials (test code=NARDA) 642.71 ng/mL 22-322 Eqkwtceply6235-78-07 15:21:00* Test Item Value Reference Range Comments Hematology (test code=WBCT) 6.2 thou/uL 4.8-10.8 Hematology (test code=RBCT) 2.14 mill/uL 4.70-6.10 Hematology (test code=HGBT) 7.8 g/dL 14.0-18.0 Hematology (test code=HCTT) 21.7 % 42.0-52.0 Hematology (test code=MCV) 102.0 fl 80.0-94.0 Hematology (test code=MCH) 36.7 pg 27.0-31.0 Hematology (test code=MCHC) 36.1 g/dL 32.0-36.0 Hematology (test code=RDW) 17.6 % 11.5-14.5 Hematology (test code=PLTT) 145 thou/uL 130-400 Hematology (test code=MPV) 7.3 fL 7.4-10.4 Hematology (test code=%NEUT) 62.6 % 42.0-75.0 Hematology (test code=%LYMPH) 25.5 % 21.0-51.0 Hematology (test code=%MONO) 6.2 % 0.0-10.0 Hematology (test code=%EOS) 4.0 % 0.0-10.0 Hematology (test code=%BASO) 1.6 % 0.0-1.0 Hematology (test code=NEUT#) 3.9 thou/uL 1.40-6.50 Hematology (test code=LYMPH#) 1.6 thou/uL 1.20-3.40 Hematology (test code=MONO#) 0.4 thou/uL 0.11-0.59 Hematology (test code=EOS#) 0.2 thou/uL 0.0-0.7 Hematology (test code=BASO#) 0.1 thou/uL 0.0-0.2 Hematology (test code=MA) SLIGHT=6-15 cells (100X) 0-5/hpf Hematology (test code=POLY) SLIGHT=2-3 cells (100X) 0-2/hpf Nujvkiuer5669-69-44 15:11:00* Test Item Value Reference Range Comments Chemistry (test code=IRON) 75 ug/dL 65-175 Zpmtwetrr7777-44-59 15:11:00* Test Item Value Reference Range Comments Chemistry (test code=TIBC) 229 mcg/dL 261-462 Ewgyncdacm0314-06-64 14:59:00* Test Item Value Reference Range Comments Hematology (test code=RETICT) 9.6 % 0.5-1.5 Hematology (test code=IRF) 0.425 Ratio 0.163-0.362 Yfjfdbph9029-25-41 21:02:00* Test Item Value Reference Range Comments Accuchek (test code=ACU) 199 mg/dL 70-110 Pgjciekl2509-10-87 21:02:00* Test Item Value Reference Range Comments Accuchek (test code=ACU) 107 mg/dL 70-110 Xeiqizeb2776-37-07 21:02:00* Test Item Value Reference Range Comments Accuchek (test code=ACU) 151 mg/dL 70-110 Kkgrurvg1114-65-54 21:02:00* Test Item Value Reference Range Comments Accuchek (test code=ACU) 164 mg/dL 70-110 Fjjfzjzl4685-80-27 06:05:00* Test Item Value Reference Range Comments Accuchek (test code=ACU) 109 mg/dL 70-110 Dnfxdzob7946-09-80 03:32:00* Test Item Value Reference Range Comments Accuchek (test code=ACU) 166 mg/dL 70-110 Fogzclmu3641-89-48 20:10:00* Test Item Value Reference Range Comments Accuchek (test code=ACU) 157 mg/dL 70-110 Jedwqlzd7601-69-43 20:10:00* Test Item Value Reference Range Comments Accuchek (test code=ACU) 103 mg/dL 70-110 Pgdlkmafow1707-58-34 09:26:00* Test Item Value Reference Range Comments Hematology (test code=WBCT) 6.2 thou/uL 4.8-10.8 Hematology (test code=RBCT) 2.14 mill/uL 4.70-6.10 Hematology (test code=HGBT) 7.5 g/dL 14.0-18.0 Hematology (test code=HCTT) 21.1 % 42.0-52.0 Hematology (test code=MCV) 98.5 fl 80.0-94.0 Hematology (test code=MCH) 35.1 pg 27.0-31.0 Hematology (test code=MCHC) 35.7 g/dL 32.0-36.0 Hematology (test code=RDW) 15.0 % 11.5-14.5 Hematology (test code=PLTT) 169 thou/uL 130-400 Hematology (test code=MPV) 6.4 fL 7.4-10.4 Hematology (test code=%NEUT) 59.8 % 42.0-75.0 Hematology (test code=%LYMPH) 28.0 % 21.0-51.0 Hematology (test code=%MONO) 5.5 % 0.0-10.0 Hematology (test code=%EOS) 5.2 % 0.0-10.0 Hematology (test code=%BASO) 1.6 % 0.0-1.0 Hematology (test code=NEUT#) 3.7 thou/uL 1.40-6.50 Hematology (test code=LYMPH#) 1.7 thou/uL 1.20-3.40 Hematology (test code=MONO#) 0.3 thou/uL 0.11-0.59 Hematology (test code=EOS#) 0.3 thou/uL 0.0-0.7 Hematology (test code=BASO#) 0.1 thou/uL 0.0-0.2 Hematology (test code=AN) SLIGHT=6-15 cells (100X) 0-5/hpf Hematology (test code=MA) SLIGHT=6-15 cells (100X) 0-5/hpf Hematology (test code=PCOMMENT) Appears Adequate Walwnvqmu5522-11-05 05:57:00* Test Item Value Reference Range Comments Chemistry (test code=NA-T) 138 mmol/L 136-145 Chemistry (test code=K-T) 4.5 mmol/L 3.5-5.1 Chemistry (test code=CL) 96 mmol/L 98-107 Chemistry (test code=CO2) 28 mmol/L 22-29 Chemistry (test code=ANGP) 19 mmol/L 10-20 Chemistry (test code=BUN) 45 mg/dL 8.9-20.6 Chemistry (test code=CREATT) 9.12 mg/dL 0.7-1.3 Chemistry (test code=EGFRMDRD) 6 Reference Range for Estimated GFR: Greater than 90 mL/min/1.73 m2NOTE:The MDRD equation has not been validated for use with theelderly (over 70 years of age), women, patien tswith serious comorbid condition or persons with extremes ofbody size, muscle mass, or nutritional status. Chemistry (test code=GLU-T) 103 mg/dL 70-105 Chemistry (test code=CA) 8.3 mg/dL 7.8-10.44 Zffjvljh6537-22-30 22:34:00* Test Item Value Reference Range Comments Accuchek (test code=ACU) 137 mg/dL 70-110 Wisorzel9995-46-88 17:31:00* Test Item Value Reference Range Comments Accuchek (test code=ACU) 141 mg/dL 70-110 Xbcmxsqi2809-58-08 12:41:00* Test Item Value Reference Range Comments Accuchek (test code=ACU) 136 mg/dL 70-110 Tavrnuus8266-08-73 06:15:00* Test Item Value Reference Range Comments Accuchek (test code=ACU) 130 mg/dL 70-110 Wwexwwla1046-95-37 00:15:00* Test Item Value Reference Range Comments Accuchek (test code=ACU) 135 mg/dL 70-110 Hoboybfd2385-37-66 23:56:00* Test Item Value Reference Range Comments Accuchek (test code=ACU) 178 mg/dL 70-110 Gnadntrz7781-28-31 18:43:00* Test Item Value Reference Range Comments Accuchek (test code=ACU) 171 mg/dL 70-110 Culture, Cycjj1485-35-47 14:04:00* Test Item Value Reference Range Comments Culture, Urine (test code=URC) NG36 Skjifpgr5691-52-95 06:36:00* Test Item Value Reference Range Comments Accuchek (test code=ACU) 110 mg/dL 70-110 Qlchwtrh5203-18-79 20:10:00* Test Item Value Reference Range Comments Accuchek (test code=ACU) 152 mg/dL 70-110 Auuvbiwu6403-78-79 06:49:00* Test Item Value Reference Range Comments Accuchek (test code=ACU) 208 mg/dL 70-110 Clgueghf5696-17-83 17:32:00* Test Item Value Reference Range Comments Accuchek (test code=ACU) 160 mg/dL 70-110 Culture, Ntvqu0558-73-53 17:01:00* Test Item Value Reference Range Comments Culture, Blood (test code=BC) NG5 Comment Obtain cultures prior to antibiotic rlqlqxujxqolyuRlarcbpb4150-53-76 11:44:00* Test Item Value Reference Range Comments Accuchek (test code=ACU) 167 mg/dL 70-110 Mejkmpvr4192-45-97 04:44:00* Test Item Value Reference Range Comments Accuchek (test code=ACU) 134 mg/dL 70-110 Lbkzjyzl9624-65-56 20:54:00* Test Item Value Reference Range Comments Accuchek (test code=ACU) 219 mg/dL 70-110 Stool Wbcpoxn7116-91-82 15:28:00* Test Item Value Reference Range Comments Stool Culture (test code=STC) NF Stool Culture (test code=STC1) MO Y Psvfgiwse2101-90-56 07:38:00* Test Item Value Reference Range Comments Chemistry (test code=VANCR-T) 14.4 ug/mL See Comment There are NO documented Reference Ranges for RANDOMVANCOMYCIN Levels. Mkdtllsa1995-90-48 21:01:00* Test Item Value Reference Range Comments Accuchek (test code=ACU) 163 mg/dL 70-110 Brwbpiaf7752-97-72 21:01:00* Test Item Value Reference Range Comments Accuchek (test code=ACU) 171 mg/dL 70-110 Bacterial Tspcaht3698-87-86 10:43:00* Test Item Value Reference Range Comments Bacterial Culture (test code=BACTC) No penicillin, cephalosporin, or vancomycin resistance has Bacterial Culture (test code=BACTC1) smear only. Bacterial Culture (test code=BACTC1) NF Bacterial Culture (test code=BACTC1) MA MSF O:SAUR (test code=SAUR) Staphylococcus aureus Amoxicillin * (test code=AXD) Amoxicillin/Clavulanic * (test code=ACD) Azithromycin * (test code=AZID) Cefaclor * (test code=CFD) Cefepime * (test code=CPED) Cefotaxime * (test code=CFTD) Ceftazidime * (test code=CAZD) Ceftriaxone * (test code=CTRD) Cefuroxime (sodium) * (test code=CRMND) Ciprofloxacin (test code=CIPGP63) <=0.5 Clarithromycin * (test code=CLD) Clindamycin (test code=CM) <=0.25 Doxycycline * (test code=DOXD) Erthromycin (test code=EGP) >=8 Gentamicin (test code=GMGP) <=0.5 Imipenem (test code=IMD) Linezolid (test code=LNZGP) 2 Levofloxacin (test code=LEVGP) <=0.12 Moxifloxacin (test code=MXFGP) <=0.25 Ofloxacin * (test code=OFLGP) Oxacillin (test code=OX1) 0.5 Piperacillin * (test code=PIPD) Rifampin (test code=RIFGP) <=0.5 Tetracycline (test code=TEGP) <=1 Trimethoprim/Sulfamethoxazole (test code=SXTGP) <=10 Vancomycin (test code=VAGP) <=0.5 Bacterial Culture (test code=BACTC1.1) QUANTITATION: Bacterial Culture (test code=BACTC1.1) Moderate O:STAGA (test code=STAGA) Streptococcus agalactiae Gp. B Bacterial Culture (test code=BACTC1.2) QUANTITATION: Bacterial Culture (test code=BACTC1.2) Moderate CPT Modifier: 59Culture, Nruus2540-98-81 08:40:00* Test Item Value Reference Range Comments Culture, Blood (test code=BC) Please refer to culture #[id number] for call information. Culture, Blood (test code=BC1) Please refer to culture # [id number] for susceptibilities. Culture, Blood (test code=BC1) GSBC Culture, Blood (test code=BC1) GPC CL O:SAUR (test code=SAUR) Staphylococcus aureus Amoxicillin * (test code=AXD) Amoxicillin/Clavulanic * (test code=ACD) Azithromycin * (test code=AZID) Cefaclor * (test code=CFD) Cefepime * (test code=CPED) Cefotaxime * (test code=CFTD) Ceftazidime * (test code=CAZD) Ceftriaxone * (test code=CTRD) Cefuroxime (sodium) * (test code=CRMND) Ciprofloxacin (test code=CIPGP63) <=0.5 Clarithromycin * (test code=CLD) Clindamycin (test code=CM) <=0.25 Doxycycline * (test code=DOXD) Erthromycin (test code=EGP) >=8 Gentamicin (test code=GMGP) <=0.5 Imipenem (test code=IMD) Linezolid (test code=LNZGP) 1 Levofloxacin (test code=LEVGP) <=0.12 Moxifloxacin (test code=MXFGP) <=0.25 Ofloxacin * (test code=OFLGP) Oxacillin (test code=OX1) 0.5 Piperacillin * (test code=PIPD) Rifampin (test code=RIFGP) <=0.5 Tetracycline (test code=TEGP) <=1 Trimethoprim/Sulfamethoxazole (test code=SXTGP) <=10 Vancomycin (test code=VAGP) <=0.5 Culture, Blood (test code=BC1.1) How many BC are positive? Culture, Blood (test code=BC1.1) Two of two culture sets drawn are positive. O:SAUR (test code=SAUR) Staphylococcus aureus ONLY ONE SAMPLE COLLECTED DUE TO LIMITED ACCESS. LWChemistry - Specials 2017-10-22 07:02:00* Test Item Value Reference Range Comments Chemistry - Specials (test code=THBSAG) Non-Reactive S/CO NonReactive Fhjyobpc9762-42-47 05:51:00* Test Item Value Reference Range Comments Accuchek (test code=ACU) 146 mg/dL 70-110 Euzklxmsh5160-78-03 05:01:00* Test Item Value Reference Range Comments Chemistry (test code=NA-T) 137 mmol/L 136-145 Chemistry (test code=K-T) 3.7 mmol/L 3.5-5.1 Chemistry (test code=CL) 96 mmol/L 98-107 Chemistry (test code=CO2) 32 mmol/L 22-29 Chemistry (test code=ANGP) 13 mmol/L 10-20 Chemistry (test code=BUN) 28 mg/dL 8.9-20.6 Chemistry (test code=CREATT) 6.22 mg/dL 0.6-1.3 Chemistry (test code=EGFRMDRD) 10 Reference Range for Estimated GFR: Greater than 90 mL/min/1.73 m2NOTE:The MDRD equation has not been validated for use with theelderly (over 70 years of age), women, patien tswith serious comorbid condition or persons with extremes ofbody size, muscle mass, or nutritional status. Chemistry (test code=GLU-T) 166 mg/dL 70-105 Chemistry (test code=CA) 8.3 mg/dL 7.8-10.44 Bbxiybgikl9443-75-30 04:46:00* Test Item Value Reference Range Comments Hematology (test code=WBCT) 6.8 thou/uL 4.8-10.8 Hematology (test code=RBCT) 2.14 mill/uL 4.70-6.10 Hematology (test code=HGBT) 7.6 g/dL 14.0-18.0 Hematology (test code=HCTT) 21.1 % 42.0-52.0 Hematology (test code=MCV) 98.4 fl 80.0-94.0 Hematology (test code=MCH) 35.3 pg 27.0-31.0 Hematology (test code=MCHC) 35.9 g/dL 32.0-36.0 Hematology (test code=RDW) 12.3 % 11.5-14.5 Hematology (test code=PLTT) 154 thou/uL 130-400 Hematology (test code=MPV) 7.8 fL 7.4-10.4 Hematology (test code=%NEUT) 57.3 % 42.0-75.0 Hematology (test code=%LYMPH) 28.2 % 21.0-51.0 Hematology (test code=%MONO) 8.3 % 0.0-10.0 Hematology (test code=%EOS) 5.7 % 0.0-10.0 Hematology (test code=%BASO) 0.6 % 0.0-1.0 Hematology (test code=NEUT#) 3.9 thou/uL 1.40-6.50 Hematology (test code=LYMPH#) 1.9 thou/uL 1.20-3.40 Hematology (test code=MONO#) 0.6 thou/uL 0.11-0.59 Hematology (test code=EOS#) 0.4 thou/uL 0.0-0.7 Hematology (test code=BASO#) 0.0 thou/uL 0.0-0.2 Wbxcvvtt0771-89-17 21:01:00* Test Item Value Reference Range Comments Accuchek (test code=ACU) 185 mg/dL 70-110 [address]2010 SURGICAL PATHOLOGY, LEVEL LE4669-20-72 16:44:[address] [address] Laboratory Fax: Printed: 10/21/17 [address] [facility] DAEMPathology Page: 1 Patient: MARCO A MCKENNA Birthdate: Age/Sex: 47/M Spec#: [id number]: Manuel Barragan MD Specimen Date: 10/19 Received Date: 10/20/17 Specim en: AMPUTATION, TOE CLINICAL SAMANTHA GNOSIS infected foot PATHOLOGIC DIAGN OSIS Toe, left second, 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 - Negative for osteomyelitis. - Proximal margin of amputation viab avani. Pathologist:Shon Benjamin Entered by:10/21/17 - 9307 [facility].YGP PRO CEDURES: 27543, 57979 GROSS DESCRIPTION A. AMPUTATION, TOE SECOND TOE T he specimen is received in 10% formalin, and is labeled with the patient's name and "secondtoe". The specimen consists of an amputated digit with an irregular margin of resection.The tissue at the margin of resection grossly appears viable . The entire specimen measures9.5 x 5.0 x 4.4 cm in greatest dimensions. The s pecimen appears amputated at the middlephalange. There is a portion of distal n ail present. On the posterior aspects there is a focal area of ulceration with s urrounding skin slippage Patient: MARCO A MCKENNA Re10/19/17Loc: T4-A MR#: [id number] C ONTINUED ON NEXT PAGE Dis: Sta: ADM IN [address] [address] Laboratory Printed: 10/21/17 [address] [facility] DAEMPathology Page: 2 Patie nt: MARCO A MCKENNA [id number] (Continued) GROSS DESCRIPTION (Continu ed) and a pebble-like appearance. The lesion measures 2.8 x 1.9 cm in greatest dimensions. Thelesion approaches the resection margin and involves the resectio n margin in some areas. Thelesion has a friable appearance. The deep bone appe ars hard, and a assistance representative sectionis submitted. Section code:A1-2 - represen tative sections of ulcer with inked black surgical marginA3 - assistance representative sec tion of bone Cassette A3 is placed in decal solution for decalcification. Dictat ed by: Ashley Mitchell Entered by: 10/20/17 - 3030 LAB.YGP MICROSCOPIC DESCRIPTION A microscopic examination was performed to arrive at the diagnostic conclusion reported. Signed ( Electronically Signed) Shon 10/21/17 ------ ------ Patient: MARCO A MCKENNA ADILENE ReLoc: T4-A MR#: [id number] END OF REPORT Dis: Sta: ADM IN Qvfwieuw7052-59-71 12:21:00* Test Item Value Reference Range Comments Accuchek (test code=ACU) 191 mg/dL 70-110 Clostridium difficile Ypenr1051-44-83 11:12:00* Test Item Value Reference Range Comments Clostridium difficile Assay (test code=CDIFF) Performance of specimens from PEDIATRIC patients has NOT Clostridium difficile Assay (test code=CDIFF1) been evaluated. Clostridium difficile Assay (test code=CDIFF1) CDIFF1 Clostridium difficile Assay (test code=CDIFF1) APTN Toxigenic C. difficile by PFZ1265-03-33 11:12:00* Test Item Value Reference Range Comments Toxigenic C. difficile by PCR (test code=CDIFFPCR) CDIFFPCR Toxigenic C. difficile by PCR (test code=CDIFFPCR2) N Campylobacter Antigen by RC8593-30-03 08:34:00* Test Item Value Reference Range Comments Campylobacter Antigen by IA (test code=CAMPY) The Rapid Campylobacter Antigen test is a qualitative Campylobacter Antigen by IA (test code=CAMPY1) diagnostic procedures. Campylobacter Antigen by IA (test code=CAMPY1) CAMPPAT Campylobacter Antigen by IA (test code=CAMPY1) N EHEC-E coli Shiga Oipgnl5687-58-91 08:34:00* Test Item Value Reference Range Comments EHEC-E coli Shiga Toxins (test code=EHEC) TOX 1 EHEC-E coli Shiga Toxins (test code=EHEC2) N EHEC-E coli Shiga Toxins (test code=EHEC2) TOX 2 Yppyklnap5142-54-42 06:51:00* Test Item Value Reference Range Comments Chemistry (test code=VANCR-T) 27.1 ug/mL See Comment There are NO documented Reference Ranges for RANDOMVANCOMYCIN Levels. Egmnfwcle7182-26-63 05:47:00* Test Item Value Reference Range Comments Chemistry (test code=NA-T) 134 mmol/L 136-145 Chemistry (test code=K-T) 5.1 mmol/L 3.5-5.1 Chemistry (test code=CL) 93 mmol/L 98-107 Chemistry (test code=CO2) 28 mmol/L 22-29 Chemistry (test code=ANGP) 18 mmol/L 10-20 Chemistry (test code=BUN) 54 mg/dL 8.9-20.6 Chemistry (test code=CREATT) 9.87 mg/dL 0.6-1.3 Chemistry (test code=EGFRMDRD) 6 Reference Range for Estimated GFR: Greater than 90 mL/min/1.73 m2NOTE:The MDRD equation has not been validated for use with theelderly (over 70 years of age), women, patien tswith serious comorbid condition or persons with extremes ofbody size, muscle mass, or nutritional status. Chemistry (test code=GLU-T) 147 mg/dL 70-105 Chemistry (test code=CA) 8.0 mg/dL 7.8-10.44 Xmwpfaqmdb7013-54-50 05:34:00* Test Item Value Reference Range Comments Hematology (test code=WBCT) 6.5 thou/uL 4.8-10.8 Hematology (test code=RBCT) 2.31 mill/uL 4.70-6.10 Hematology (test code=HGBT) 8.1 g/dL 14.0-18.0 Hematology (test code=HCTT) 23.5 % 42.0-52.0 Hematology (test code=MCV) 101.0 fl 80.0-94.0 Hematology (test code=MCH) 35.1 pg 27.0-31.0 Hematology (test code=MCHC) 34.6 g/dL 32.0-36.0 Hematology (test code=RDW) 12.5 % 11.5-14.5 Hematology (test code=PLTT) 157 thou/uL 130-400 Hematology (test code=MPV) 7.6 fL 7.4-10.4 Hematology (test code=%NEUT) 70.8 % 42.0-75.0 Hematology (test code=%LYMPH) 18.8 % 21.0-51.0 Hematology (test code=%MONO) 9.6 % 0.0-10.0 Hematology (test code=%EOS) 0.6 % 0.0-10.0 Hematology (test code=%BASO) 0.2 % 0.0-1.0 Hematology (test code=NEUT#) 4.6 thou/uL 1.40-6.50 Hematology (test code=LYMPH#) 1.2 thou/uL 1.20-3.40 Hematology (test code=MONO#) 0.6 thou/uL 0.11-0.59 Hematology (test code=EOS#) 0.0 thou/uL 0.0-0.7 Hematology (test code=BASO#) 0.0 thou/uL 0.0-0.2 [id number] 11:56:00* Test Item Value Reference Range Comments Accuchek (test code=ACU) 224 mg/dL 70-110 [id number] 08:19:00* Test Item Value Reference Range Comments Hematology (test code=SED) 17 mm/hr Less than 15 [id number] 08:07:00* Test Item Value Reference Range Comments Chemistry (test code=NA-T) 137 mmol/L 136-145 Chemistry (test code=K-T) 4.2 mmol/L 3.5-5.1 Chemistry (test code=CL) 98 mmol/L 98-107 Chemistry (test code=CO2) 25 mmol/L 22-29 Chemistry (test code=ANGP) 18 mmol/L 10-20 Chemistry (test code=BUN) 35 mg/dL 8.9-20.6 Chemistry (test code=CREATT) 7.80 mg/dL 0.6-1.3 Chemistry (test code=EGFRMDRD) 7 Reference Range for Estimated GFR: Greater than 90 mL/min/1.73 m2NOTE:The MDRD equation has not been validated for use with theelderly (over 70 years of age), women, patien tswith serious comorbid condition or persons with extremes ofbody size, muscle mass, or nutritional status. Chemistry (test code=GLU-T) 110 mg/dL 70-105 Chemistry (test code=CA) 8.2 mg/dL 7.8-10.44 Chemistry (test code=TBILI) 0.6 mg/dL 0.2-1.2 Chemistry (test code=TP) 6.7 g/dL 6.0-8.3 Chemistry (test code=ALB) 3.2 g/dL 3.5-5.0 Chemistry (test code=GLOB) 3.5 g/dL 2.4-3.5 Chemistry (test code=AG) 0.9 g/dL 1.2-2.2 Chemistry (test code=ALP) 98 U/L 40-150 Chemistry (test code=AST) 18 U/L 5-34 Chemistry (test code=ALT) 10 U/L 8-55 What test does the doctor want? C-REACTIVE PROTEIN (CRP)[id number] 08:07:00* Test Item Value Reference Range Comments Chemistry (test code=CRP) 21.82 mg/dL =or < 0.5 What test does the doctor want? C-REACTIVE PROTEIN (CRP)[id number] 07:38:00* Test Item Value Reference Range Comments Hematology (test code=WBCT) 8.3 thou/uL 4.8-10.8 Hematology (test code=RBCT) 2.36 mill/uL 4.70-6.10 Hematology (test code=HGBT) 8.1 g/dL 14.0-18.0 Hematology (test code=HCTT) 23.5 % 42.0-52.0 Hematology (test code=MCV) 99.8 fl 80.0-94.0 Hematology (test code=MCH) 34.2 pg 27.0-31.0 Hematology (test code=MCHC) 34.3 g/dL 32.0-36.0 Hematology (test code=RDW) 12.6 % 11.5-14.5 Hematology (test code=PLTT) 157 thou/uL 130-400 Hematology (test code=MPV) 7.4 fL 7.4-10.4 Hematology (test code=%NEUT) 72.8 % 42.0-75.0 Hematology (test code=%LYMPH) 14.7 % 21.0-51.0 Hematology (test code=%MONO) 8.3 % 0.0-10.0 Hematology (test code=%EOS) 3.6 % 0.0-10.0 Hematology (test code=%BASO) 0.5 % 0.0-1.0 Hematology (test code=NEUT#) 6.0 thou/uL 1.40-6.50 Hematology (test code=LYMPH#) 1.2 thou/uL 1.20-3.40 Hematology (test code=MONO#) 0.7 thou/uL 0.11-0.59 Hematology (test code=EOS#) 0.3 thou/uL 0.0-0.7 Hematology (test code=BASO#) 0.0 thou/uL 0.0-0.2 Dpmhrovj9451-26-80 19:29:00* Test Item Value Reference Range Comments Accuchek (test code=ACU) 99 mg/dL 70-110 Chemistry - Ufjyrli5650-67-60 16:48:00* Test Item Value Reference Range Comments Chemistry - Lactate (test code=LACTSEP-T) 1.1 mmol/L 0.5-2.2 Comment Prior to 4th doseChemistry - Sddaiga3529-07-55 10:00:00* Test Item Value Reference Range Comments Chemistry - Lactate (test code=LACTSEP-T) 1.1 mmol/L 0.5-2.2 Influenza A B Ag Iryfxd5632-28-65 09:33:00* Test Item Value Reference Range Comments Influenza A B Ag Screen (test code=FLU) The rapid Flu A B test can distinguish between influenza A Influenza A B Ag Screen (test code=FLU1) follow up confirmatory testing is warranted. Influenza A B Ag Screen (test code=FLU1) FLUB Influenza A B Ag Screen (test code=FLU1) N Rcuouvxwjp6983-06-85 08:57:00* Test Item Value Reference Range Comments Hematology (test code=WBCT) 11.0 thou/uL 4.8-10.8 Hematology (test code=RBCT) 2.98 mill/uL 4.70-6.10 Hematology (test code=HGBT) 10.5 g/dL 14.0-18.0 Hematology (test code=HCTT) 28.8 % 42.0-52.0 Hematology (test code=MCV) 96.7 fl 80.0-94.0 Hematology (test code=MCH) 35.1 pg 27.0-31.0 Hematology (test code=MCHC) 36.3 g/dL 32.0-36.0 Hematology (test code=RDW) 12.0 % 11.5-14.5 Hematology (test code=PLTT) 149 thou/uL 130-400 Hematology (test code=MPV) 6.8 fL 7.4-10.4 Hematology (test code=%NEUT) 86.4 % 42.0-75.0 Hematology (test code=%LYMPH) 6.4 % 21.0-51.0 Hematology (test code=%MONO) 3.3 % 0.0-10.0 Hematology (test code=%EOS) 3.1 % 0.0-10.0 Hematology (test code=%BASO) 0.8 % 0.0-1.0 Hematology (test code=NEUT#) 9.5 thou/uL 1.40-6.50 Hematology (test code=LYMPH#) 0.7 thou/uL 1.20-3.40 Hematology (test code=MONO#) 0.4 thou/uL 0.11-0.59 Hematology (test code=EOS#) 0.3 thou/uL 0.0-0.7 Hematology (test code=BASO#) 0.1 thou/uL 0.0-0.2 Nmcxtglbp1483-49-71 08:52:00* Test Item Value Reference Range Comments Chemistry (test code=NA-T) 137 mmol/L 136-145 Chemistry (test code=K-T) 5.4 mmol/L 3.5-5.1 Chemistry (test code=CL) 96 mmol/L 98-107 Chemistry (test code=CO2) 23 mmol/L 22-29 Chemistry (test code=ANGP) 23 mmol/L 10-20 Chemistry (test code=BUN) 61 mg/dL 8.9-20.6 Chemistry (test code=CREATT) 11.92 mg/dL 0.7-1.3 Chemistry (test code=EGFRMDRD) 5 Reference Range for Estimated GFR: Greater than 90 mL/min/1.73 m2NOTE:The MDRD equation has not been validated for use with theelderly (over 70 years of age), women, patien tswith serious comorbid condition or persons with extremes ofbody size, muscle mass, or nutritional status. Chemistry (test code=GLU-T) 123 mg/dL 70-105 Chemistry (test code=CA) 8.4 mg/dL 7.8-10.44 Chemistry (test code=TBILI) 1.1 mg/dL 0.2-1.2 Chemistry (test code=TP) 8.1 g/dL 6.0-8.3 Chemistry (test code=ALB) 3.8 g/dL 3.5-5.0 Chemistry (test code=GLOB) 4.3 g/dL 2.4-3.5 Chemistry (test code=AG) 0.9 g/dL 1.2-2.2 Chemistry (test code=ALP) 137 U/L 40-150 Chemistry (test code=AST) 17 U/L 5-34 Chemistry (test code=ALT) 12 U/L 8-55 Chemistry - Cotgcxrx1895-29-58 18:58:00* Test Item Value Reference Range Comments Chemistry - Specials (test code=THBSAG) Non-Reactive S/CO NonReactive Obzhxktn5067-65-25 17:28:00* Test Item Value Reference Range Comments Accuchek (test code=ACU) 290 mg/dL 70-110 Aslfgzhh0217-97-84 12:32:00* Test Item Value Reference Range Comments Accuchek (test code=ACU) 100 mg/dL 70-110 Cgetsroar5489-02-14 06:04:00* Test Item Value Reference Range Comments Chemistry (test code=NA-T) 137 mmol/L 136-145 Chemistry (test code=K-T) 4.8 mmol/L 3.5-5.1 Chemistry (test code=CL) 96 mmol/L 98-107 Chemistry (test code=CO2) 30 mmol/L 22-29 Chemistry (test code=ANGP) 16 mmol/L 10-20 Chemistry (test code=BUN) 34 mg/dL 8.9-20.6 Chemistry (test code=CREATT) 8.14 mg/dL 0.6-1.3 Chemistry (test code=EGFRMDRD) 7 Reference Range for Estimated GFR: Greater than 90 mL/min/1.73 m2NOTE:The MDRD equation has not been validated for use with theelderly (over 70 years of age), women, patien tswith serious comorbid condition or persons with extremes ofbody size, muscle mass, or nutritional status. Chemistry (test code=GLU-T) 124 mg/dL 70-105 Chemistry (test code=CA) 8.4 mg/dL 7.8-10.44 Ykboobci5926-46-95 05:50:00* Test Item Value Reference Range Comments Accuchek (test code=ACU) 114 mg/dL 70-110 Gsmeoygtzd9524-36-24 05:43:00* Test Item Value Reference Range Comments Hematology (test code=WBCT) 5.9 thou/uL 4.8-10.8 Hematology (test code=RBCT) 2.80 mill/uL 4.70-6.10 Hematology (test code=HGBT) 9.5 g/dL 14.0-18.0 Hematology (test code=HCTT) 27.0 % 42.0-52.0 Hematology (test code=MCV) 96.6 fl 80.0-94.0 Hematology (test code=MCH) 33.9 pg 27.0-31.0 Hematology (test code=MCHC) 35.1 g/dL 32.0-36.0 Hematology (test code=RDW) 12.9 % 11.5-14.5 Hematology (test code=PLTT) 122 thou/uL 130-400 Hematology (test code=MPV) 7.6 fL 7.4-10.4 Hematology (test code=%NEUT) 60.7 % 42.0-75.0 Hematology (test code=%LYMPH) 26.3 % 21.0-51.0 Hematology (test code=%MONO) 6.5 % 0.0-10.0 Hematology (test code=%EOS) 5.2 % 0.0-10.0 Hematology (test code=%BASO) 1.2 % 0.0-1.0 Hematology (test code=NEUT#) 3.6 thou/uL 1.40-6.50 Hematology (test code=LYMPH#) 1.6 thou/uL 1.20-3.40 Hematology (test code=MONO#) 0.4 thou/uL 0.11-0.59 Hematology (test code=EOS#) 0.3 thou/uL 0.0-0.7 Hematology (test code=BASO#) 0.1 thou/uL 0.0-0.2 Nrnbctpv8184-76-40 21:59:00* Test Item Value Reference Range Comments Accuchek (test code=ACU) 221 mg/dL 70-110 Lsvemuepa1536-53-33 21:27:00* Test Item Value Reference Range Comments Chemistry (test code=TROPI-T) 0.010 ng/mL < 0.028 Reference Range 0.00 - 0.028 ng/mL Negative 0.029 - 0.29 ng/mL Indeterminate Greater or Equal to 0.3 ng/mL Strongly suggests DE Lallciav5267-90-08 18:31:00* Test Item Value Reference Range Comments Accuchek (test code=ACU) 99 mg/dL 70-110 Wzmxdlipi0501-05-75 18:26:00* Test Item Value Reference Range Comments Chemistry (test code=TROPI-T) 0.019 ng/mL < 0.028 Reference Range 0.00 - 0.028 ng/mL Negative 0.029 - 0.29 ng/mL Indeterminate Greater or Equal to 0.3 ng/mL Strongly suggests DE Influenza A B Ag Jgmozz6595-22-04 16:30:00* Test Item Value Reference Range Comments Influenza A B Ag Screen (test code=FLU) The rapid Flu A B test can distinguish between influenza A Influenza A B Ag Screen (test code=FLU1) follow up confirmatory testing is warranted. Influenza A B Ag Screen (test code=FLU1) FLUB Influenza A B Ag Screen (test code=FLU1) N Githdnooy1243-85-18 15:58:00* Test Item Value Reference Range Comments Chemistry (test code=CHOL) 183 mg/dl < 200 Desired Chemistry (test code=TRIG) 315 mg/dL Less than 150 Chemistry (test code=HDL) 30 mg/dL >60 Neg Risk Adult HDL levels in terms of risk for Coronary Heart Disease > or Equal to 60 mg/dL Negative Risk < 40 mg/dL HIGH Risk Chemistry (test code=LDL) 90 mg/dL Levels in terms of risk for coronary heart disease: Desirable: Less than 130 mg/dL Borderline High Risk: 130 - 159 mg/dL High Risk: Greater than 160 mg/dL Chemistry (test code=CRISK) 6.1 Less than 4.5 Adult levels in terms of risk for Coronary Heart Disease: Dangerous Level: Greater than 14.3 High: 6.7 - 14.3 Average: 4.0 - 6.7 Below average: 2.7 - 4.0 Protection probable: Less than 2.7 Chemistry - BNP, HgbA1c, [id number] 15:15:00* Test Item Value Reference Range Comments Chemistry - BNP, HgbA1c, PTHi (test code=BNP) 706.2 pg/mL 0-100 Rsedjdbqn2515-70-49 15:06:00* Test Item Value Reference Range Comments Chemistry (test code=LIP) 68 U/L 8-78 Xhlytetsl8915-70-32 15:05:00* Test Item Value Reference Range Comments Chemistry (test code=CKMBM-T) 1.8 ng/mL 0-6.6 Chemistry (test code=TROPI-T) 0.011 ng/mL < 0.028 Reference Range 0.00 - 0.028 ng/mL Negative 0.029 - 0.29 ng/mL Indeterminate Greater or Equal to 0.3 ng/mL Strongly suggests DE Zrlaotbtf9682-45-97 15:01:00* Test Item Value Reference Range Comments Chemistry (test code=NA-T) 137 mmol/L 136-145 Chemistry (test code=K-T) 3.7 mmol/L 3.5-5.1 Chemistry (test code=CL) 98 mmol/L 98-107 Chemistry (test code=CO2) 29 mmol/L 22-29 Chemistry (test code=ANGP) 14 mmol/L 10-20 Chemistry (test code=BUN) 26 mg/dL 8.9-20.6 Chemistry (test code=CREATT) 5.82 mg/dL 0.6-1.3 Chemistry (test code=EGFRMDRD) 10 Reference Range for Estimated GFR: Greater than 90 mL/min/1.73 m2NOTE:The MDRD equation has not been validated for use with theelderly (over 70 years of age), women, patien tswith serious comorbid condition or persons with extremes ofbody size, muscle mass, or nutritional status. Chemistry (test code=GLU-T) 94 mg/dL 70-105 Chemistry (test code=CA) 9.1 mg/dL 7.8-10.44 Chemistry (test code=TBILI) 0.8 mg/dL 0.2-1.2 Chemistry (test code=TP) 7.8 g/dL 6.0-8.3 Chemistry (test code=ALB) 3.9 g/dL 3.5-5.0 Chemistry (test code=GLOB) 3.9 g/dL 2.4-3.5 Chemistry (test code=AG) 1.0 g/dL 1.2-2.2 Chemistry (test code=ALP) 202 U/L 40-150 Chemistry (test code=AST) 23 U/L 5-34 Chemistry (test code=ALT) 20 U/L 8-55 Louumjogn4633-73-64 15:01:00* Test Item Value Reference Range Comments Chemistry (test code=CK) 86 U/L 30-200 Pkuqrsthgmu7993-53-16 14:53:00* Test Item Value Reference Range Comments Coagulation (test code=PT-T) 14.3 SEC 12.0-14.7 Coagulation (test code=INR) 1.1 ATTENTION: READ CAREFULLY The recommended therapeutic ranges for oral anticoagulanttreatments are: Low Intensity: 1.5 - 2.0 Moderate Intensity: 2.0 - 3.0 High Intensity (1): 2.5 - 3.5 High Intensity (2): 3.0 - 4.0 CRITICAL: > 4.0 Anticoagulant? NONEMedical Necessity SUSPECT COAGULOPATHYAnticoagulant? NONEMedi bon Necessity: SUSP GSTDEyecjnlkwph7844-39-26 14:53:00* Test Item Value Reference Range Comments Coagulation (test code=PTT) 39.6 SEC 22.9-36.1 Anticoagulant? NONEMedical Necessity SUSPECT COAGULOPATHYAnticoagulant? NONEMedi bon Necessity: SUSP DTBTZrbkjgqcyw2816-69-54 14:36:00* Test Item Value Reference Range Comments Hematology (test code=WBCT) 6.7 thou/uL 4.8-10.8 Hematology (test code=RBCT) 3.13 mill/uL 4.70-6.10 Hematology (test code=HGBT) 10.5 g/dL 14.0-18.0 Hematology (test code=HCTT) 29.7 % 42.0-52.0 Hematology (test code=MCV) 94.7 fl 80.0-94.0 Hematology (test code=MCH) 33.6 pg 27.0-31.0 Hematology (test code=MCHC) 35.5 g/dL 32.0-36.0 Hematology (test code=RDW) 13.0 % 11.5-14.5 Hematology (test code=PLTT) 134 thou/uL 130-400 Hematology (test code=MPV) 7.1 fL 7.4-10.4 Hematology (test code=%NEUT) 64.8 % 42.0-75.0 Hematology (test code=%LYMPH) 23.8 % 21.0-51.0 Hematology (test code=%MONO) 5.5 % 0.0-10.0 Hematology (test code=%EOS) 5.2 % 0.0-10.0 Hematology (test code=%BASO) 0.6 % 0.0-1.0 Hematology (test code=NEUT#) 4.3 thou/uL 1.40-6.50 Hematology (test code=LYMPH#) 1.6 thou/uL 1.20-3.40 Hematology (test code=MONO#) 0.4 thou/uL 0.11-0.59 Hematology (test code=EOS#) 0.4 thou/uL 0.0-0.7 Hematology (test code=BASO#) 0.0 thou/uL 0.0-0.2 Culture, Blood (Line ONLY)2017-07-27 15:57:00* Test Item Value Reference Range Comments Culture, Blood (Line ONLY) (test code=BCL) NG5 Culture, Blood (Line ONLY)2017-07-27 15:30:00* Test Item Value Reference Range Comments Culture, Blood (Line ONLY) (test code=BCL) NG5 Vvrbhrhe7016-24-13 06:01:00* Test Item Value Reference Range Comments Accuchek (test code=ACU) 116 mg/dL 70-110 Emxdppxru7234-40-92 05:51:00* Test Item Value Reference Range Comments Chemistry (test code=NA-T) 135 mmol/L 136-145 Chemistry (test code=K-T) 4.5 mmol/L 3.5-5.1 Chemistry (test code=CL) 95 mmol/L 98-107 Chemistry (test code=CO2) 22 mmol/L 22-29 Chemistry (test code=ANGP) 23 mmol/L 10-20 Chemistry (test code=BUN) 67 mg/dL 8.9-20.6 Chemistry (test code=CREATT) 12.78 mg/dL 0.6-1.3 Chemistry (test code=EGFRMDRD) 4 Reference Range for Estimated GFR: Greater than 90 mL/min/1.73 m2NOTE:The MDRD equation has not been validated for use with theelderly (over 70 years of age), women, patien tswith serious comorbid condition or persons with extremes ofbody size, muscle mass, or nutritional status. Chemistry (test code=GLU-T) 122 mg/dL 70-105 Chemistry (test code=CA) 7.3 mg/dL 7.8-10.44 Chemistry (test code=TBILI) 0.7 mg/dL 0.2-1.2 Chemistry (test code=TP) 6.7 g/dL 6.0-8.3 Chemistry (test code=ALB) 3.3 g/dL 3.5-5.0 Chemistry (test code=GLOB) 3.4 g/dL 2.4-3.5 Chemistry (test code=AG) 1.0 g/dL 1.2-2.2 Chemistry (test code=ALP) 130 U/L 40-150 Chemistry (test code=AST) 24 U/L 5-34 Chemistry (test code=ALT) 12 U/L 8-55 Comment use blood in wpgZxwxqwjpoa5910-60-03 05:39:00* Test Item Value Reference Range Comments Hematology (test code=WBCT) 5.6 thou/uL 4.8-10.8 Hematology (test code=RBCT) 3.21 mill/uL 4.70-6.10 Hematology (test code=HGBT) 11.3 g/dL 14.0-18.0 Hematology (test code=HCTT) 31.1 % 42.0-52.0 Hematology (test code=MCV) 96.8 fl 80.0-94.0 Hematology (test code=MCH) 35.3 pg 27.0-31.0 Hematology (test code=MCHC) 36.5 g/dL 32.0-36.0 Hematology (test code=RDW) 14.7 % 11.5-14.5 Hematology (test code=PLTT) 109 thou/uL 130-400 Hematology (test code=MPV) 8.4 fL 7.4-10.4 Hematology (test code=%NEUT) 49.6 % 42.0-75.0 Hematology (test code=%LYMPH) 34.4 % 21.0-51.0 Hematology (test code=%MONO) 9.0 % 0.0-10.0 Hematology (test code=%EOS) 6.4 % 0.0-10.0 Hematology (test code=%BASO) 0.7 % 0.0-1.0 Hematology (test code=NEUT#) 2.8 thou/uL 1.40-6.50 Hematology (test code=LYMPH#) 1.9 thou/uL 1.20-3.40 Hematology (test code=MONO#) 0.5 thou/uL 0.11-0.59 Hematology (test code=EOS#) 0.4 thou/uL 0.0-0.7 Hematology (test code=BASO#) 0.0 thou/uL 0.0-0.2 Comment use blood in labChemistry - BNP, HgbA1c, [id number] 05:36:00* Test Item Value Reference Range Comments Chemistry - BNP, HgbA1c, PTHi (test code=IPWE9MC) 5.2 % 4.0-6.0 Therapeutic goals for glycemic control (ADA)Adults:- Goal of therapy: Less than 7.0% HbA1c- Action suggested: Greater than 8.0% LuW0lEtvtsvpof patients:- Toddlers and preschoolers: Less than 8.5% (but Greater than 7.5%)- School age (6-12 years): Less than 8%- Adolescents and young adults (13-19 years): Less than 7.5%Diagnosing diabetes (ADA)- HbA1c: Greater than or equal to 6.5% Values of 5.7 - 6.4% indicate HIGH risk for developing DiabetesInternational Expert Committee Report on the Role of the E3SGxqlk in the Diagnosis of Diabetes. Diabetes Care 2009July;32(7):1327-1334ADA, Diagnosis classification of diabetes mellitus.Diabetes Care 2010; 33 Suppl 1:S62 Zwgkmyok4922-04-53 21:26:00* Test Item Value Reference Range Comments Accuchek (test code=ACU) 110 mg/dL 70-110 Bqrxspho8117-25-84 17:34:00* Test Item Value Reference Range Comments Accuchek (test code=ACU) 107 mg/dL 70-110 Kiwtnmynsi7213-00-26 16:40:00* Test Item Value Reference Range Comments Hematology (test code=SED) 42 mm/hr Less than 15 Dheuvmup5126-41-01 11:06:00* Test Item Value Reference Range Comments Accuchek (test code=ACU) 167 mg/dL 70-110 Eljmfhku7202-91-73 08:37:00* Test Item Value Reference Range Comments Accuchek (test code=ACU) 124 mg/dL 70-110 Cekcnmald5031-93-46 05:18:00* Test Item Value Reference Range Comments Chemistry (test code=NA-T) 137 mmol/L 136-145 Chemistry (test code=K-T) 4.3 mmol/L 3.5-5.1 Chemistry (test code=CL) 96 mmol/L 98-107 Chemistry (test code=CO2) 26 mmol/L 22-29 Chemistry (test code=ANGP) 19 mmol/L 10-20 Chemistry (test code=BUN) 47 mg/dL 8.9-20.6 Chemistry (test code=CREATT) 10.60 mg/dL 0.6-1.3 Chemistry (test code=EGFRMDRD) 5 Reference Range for Estimated GFR: Greater than 90 mL/min/1.73 m2NOTE:The MDRD equation has not been validated for use with theelderly (over 70 years of age), women, patien tswith serious comorbid condition or persons with extremes ofbody size, muscle mass, or nutritional status. Chemistry (test code=GLU-T) 111 mg/dL 70-105 Chemistry (test code=CA) 8.2 mg/dL 7.8-10.44 Chemistry (test code=TBILI) 1.0 mg/dL 0.2-1.2 Chemistry (test code=TP) 7.3 g/dL 6.0-8.3 Chemistry (test code=ALB) 3.6 g/dL 3.5-5.0 Chemistry (test code=GLOB) 3.7 g/dL 2.4-3.5 Chemistry (test code=AG) 1.0 g/dL 1.2-2.2 Chemistry (test code=ALP) 143 U/L 40-150 Chemistry (test code=AST) 24 U/L 5-34 Chemistry (test code=ALT) 16 U/L 8-55 Comment use blood in ntgYenmamxeuh5054-09-13 04:57:00* Test Item Value Reference Range Comments Hematology (test code=WBCT) 7.5 thou/uL 4.8-10.8 Hematology (test code=RBCT) 3.46 mill/uL 4.70-6.10 Hematology (test code=HGBT) 11.7 g/dL 14.0-18.0 Hematology (test code=HCTT) 33.8 % 42.0-52.0 Hematology (test code=MCV) 97.8 fl 80.0-94.0 Hematology (test code=MCH) 33.9 pg 27.0-31.0 Hematology (test code=MCHC) 34.7 g/dL 32.0-36.0 Hematology (test code=RDW) 14.8 % 11.5-14.5 Hematology (test code=PLTT) 124 thou/uL 130-400 Hematology (test code=MPV) 8.2 fL 7.4-10.4 Hematology (test code=%NEUT) 64.5 % 42.0-75.0 Hematology (test code=%LYMPH) 23.8 % 21.0-51.0 Hematology (test code=%MONO) 7.1 % 0.0-10.0 Hematology (test code=%EOS) 3.8 % 0.0-10.0 Hematology (test code=%BASO) 0.8 % 0.0-1.0 Hematology (test code=NEUT#) 4.8 thou/uL 1.40-6.50 Hematology (test code=LYMPH#) 1.8 thou/uL 1.20-3.40 Hematology (test code=MONO#) 0.5 thou/uL 0.11-0.59 Hematology (test code=EOS#) 0.3 thou/uL 0.0-0.7 Hematology (test code=BASO#) 0.1 thou/uL 0.0-0.2 Comment use blood in tysDqjusmpk7431-14-75 22:55:00* Test Item Value Reference Range Comments Accuchek (test code=ACU) 109 mg/dL 70-110 Rnnssdnr8622-58-05 20:48:00* Test Item Value Reference Range Comments Accuchek (test code=ACU) 125 mg/dL 70-110 Dvpddewto0964-65-20 18:08:00* Test Item Value Reference Range Comments Chemistry (test code=TROPI-T) 0.091 ng/mL < 0.028 Reference Range 0.00 - 0.028 ng/mL Negative 0.029 - 0.29 ng/mL Indeterminate Greater or Equal to 0.3 ng/mL Strongly suggests DE Chemistry - Twrpvmqp7171-47-59 15:49:00* Test Item Value Reference Range Comments Chemistry - Specials (test code=TSH3) 1.9226 uIU/mL 0.35-4.94 Comment use blood in labChemistry - Plyrupiz2971-24-28 15:49:00* Test Item Value Reference Range Comments Chemistry - Specials (test code=VITD) 10.6 ng/ml > 30.0 Comment use blood in wkmLnhaakase7009-38-62 15:35:00* Test Item Value Reference Range Comments Chemistry (test code=TROPI-T) 0.067 ng/mL < 0.028 Reference Range 0.00 - 0.028 ng/mL Negative 0.029 - 0.29 ng/mL Indeterminate Greater or Equal to 0.3 ng/mL Strongly suggests DE Chemistry - BNP, HgbA1c, IUAu6396-58-33 15:35:00* Test Item Value Reference Range Comments Chemistry - BNP, HgbA1c, PTHi (test code=PTHI) 592.8 pg/mL 19.8-88.0 Comment use blood in ryaJowdkffym0270-59-94 15:28:00* Test Item Value Reference Range Comments Chemistry (test code=CRP) 3.16 mg/dL =or < 0.5 Comment use blood in labWhat test does the doctor want? C-REACTIVE PROTEIN (CRP) Ppohdvyxrb3747-06-05 15:21:00* Test Item Value Reference Range Comments Hematology (test code=SED) 17 mm/hr Less than 15 Comment use blood in labChemistry - Aevpyoio8082-60-40 14:46:00* Test Item Value Reference Range Comments Chemistry - Specials (test code=HBSABINT) Reactive NonReactive Chemistry - Specials (test code=HBSABCONC) 539.32 mIU/mL REFERENCE RANGES for HBSAB (Hepatitis B Surface Antibody):Nonreactive: 0.0 - <8.0 Individual is considered NOT immune to HBV infectionIndeterminate: >=8.0 - <12.0 The immune status of the individual should be further assessed by follow-up testin g.Reactive: >=12.0 Individual is considered immune to HBV infection. Chemistry - Hanwdzxk0492-35-07 14:46:00* Test Item Value Reference Range Comments Chemistry - Specials (test code=THBSAG) Non-Reactive S/CO NonReactive Chemistry - Kchdtawz0154-34-88 14:46:00* Test Item Value Reference Range Comments Chemistry - Specials (test code=INTHEPBCT) Non-Reactive NonReactive Chemistry - Myyyjxqw7823-35-70 14:46:00* Test Item Value Reference Range Comments Chemistry - Specials (test code=INTHEPC) Non-Reactive NonReactive Yrqmjfvjl1166-13-92 12:12:00* Test Item Value Reference Range Comments Chemistry (test code=CKMBM-T) 4.0 ng/mL 0-6.6 Chemistry (test code=TROPI-T) 0.027 ng/mL < 0.028 Reference Range 0.00 - 0.028 ng/mL Negative 0.029 - 0.29 ng/mL Indeterminate Greater or Equal to 0.3 ng/mL Strongly suggests DE Mkpufrzp3022-38-12 10:56:00* Test Item Value Reference Range Comments Accuchek (test code=ACU) 110 mg/dL 70-110 Xjutbzpjw0349-80-01 09:00:00* Test Item Value Reference Range Comments Chemistry (test code=CCC) @ 2904 (READBACK) Refer to Critical Value designated by an *L or *H Chemistry (test code=NA-T) 140 mmol/L 136-145 Chemistry (test code=K-T) 6.9 mmol/L 3.5-5.1 Critical value! Chemistry (test code=CL) 104 mmol/L 98-107 Chemistry (test code=CO2) 14 mmol/L 22-29 Chemistry (test code=ANGP) 29 mmol/L 10-20 Chemistry (test code=BUN) 100 mg/dL 8.9-20.6 Chemistry (test code=CREATT) 18.69 mg/dL 0.7-1.3 Chemistry (test code=EGFRMDRD) 3 Reference Range for Estimated GFR: Greater than 90 mL/min/1.73 m2NOTE:The MDRD equation has not been validated for use with theelderly (over 70 years of age), women, patien tswith serious comorbid condition or persons with extremes ofbody size, muscle mass, or nutritional status. Chemistry (test code=GLU-T) 115 mg/dL 70-105 Chemistry (test code=CA) 7.3 mg/dL 7.8-10.44 Chemistry (test code=TBILI) 0.9 mg/dL 0.2-1.2 Chemistry (test code=TP) 7.8 g/dL 6.0-8.3 Chemistry (test code=ALB) 4.1 g/dL 3.5-5.0 Chemistry (test code=GLOB) 3.7 g/dL 2.4-3.5 Chemistry (test code=AG) 1.1 g/dL 1.2-2.2 Chemistry (test code=ALP) 180 U/L 40-150 Chemistry (test code=AST) 31 U/L 5-34 Chemistry (test code=ALT) 20 U/L 8-55 [id number] 09:00:00* Test Item Value Reference Range Comments Chemistry (test code=MG) 2.5 mg/dL 1.6-2.6 [id number] 08:35:00* Test Item Value Reference Range Comments Hematology (test code=WBCT) 9.7 thou/uL 4.8-10.8 Hematology (test code=RBCT) 3.76 mill/uL 4.70-6.10 Hematology (test code=HGBT) 12.5 g/dL 14.0-18.0 Hematology (test code=HCTT) 36.9 % 42.0-52.0 Hematology (test code=MCV) 98.0 fl 80.0-94.0 Hematology (test code=MCH) 33.3 pg 27.0-31.0 Hematology (test code=MCHC) 34.0 g/dL 32.0-36.0 Hematology (test code=RDW) 14.1 % 11.5-14.5 Hematology (test code=PLTT) 128 thou/uL 130-400 Hematology (test code=MPV) 6.9 fL 7.4-10.4 Hematology (test code=%NEUT) 76.8 % 42.0-75.0 Hematology (test code=%LYMPH) 14.4 % 21.0-51.0 Hematology (test code=%MONO) 3.2 % 0.0-10.0 Hematology (test code=%EOS) 4.3 % 0.0-10.0 Hematology (test code=%BASO) 1.2 % 0.0-1.0 Hematology (test code=NEUT#) 7.5 thou/uL 1.40-6.50 Hematology (test code=LYMPH#) 1.4 thou/uL 1.20-3.40 Hematology (test code=MONO#) 0.3 thou/uL 0.11-0.59 Hematology (test code=EOS#) 0.4 thou/uL 0.0-0.7 Hematology (test code=BASO#) 0.1 thou/uL 0.0-0.2 COMPREHENSIVE METABOLIC [id number] 14:08:00* Test Item Value Reference Range Comments TOTAL PROTEIN (BEAKER) (test yfsk=186) 7.2 gm/dL 6.0-8.3 ALBUMIN (BEAKER) (test vnwf=2797) 3.6 g/dL 3.5-5.0 ALKALINE PHOSPHATASE (BEAKER) (test vqoo=519) 185 U/L 40-150 BILIRUBIN TOTAL (BEAKER) (test htxf=990) 0.4 mg/dL 0.2-1.2 SODIUM (BEAKER) (test rves=620) 139 meq/L 136-145 POTASSIUM (BEAKER) (test lohm=004) 4.0 meq/L 3.5-5.1 CHLORIDE (BEAKER) (test oljs=596) 97 meq/L 98-107 CO2 (BEAKER) (test qnyp=957) 29 meq/L 22-29 BLOOD UREA NITROGEN (BEAKER) (test gwoh=499) 25 mg/dL 7-21 CREATININE (BEAKER) (test fsmg=654) 6.81 mg/dL 0.57-1.25 GLUCOSE RANDOM (BEAKER) (test yxpk=603) 118 mg/dL 70-105 CALCIUM (BEAKER) (test ikys=396) 9.1 mg/dL 8.4-10.2 AST (SGOT) (BEAKER) (test hwhy=070) 25 U/L 5-34 ALT (SGPT) (BEAKER) (test lidv=047) 15 U/L 6-55 EGFR (BEAKER) (test pcpw=3523) mL/min/1.73 sq m INSUFFICIENT CLINICAL DATA TO CALCULATE ESTIMATED GFR. BILIRUBIN, [id number] 14:05:00* Test Item Value Reference Range Comments BILIRUBIN DIRECT (BEAKER) (test jcod=102) 0.2 mg/dL 0.1-0.5 PROTHROMBIN [id number] 13:44:00* Test Item Value Reference Range Comments PROTIME (BEAKER) (test info=774) 14.8 seconds 11.7-14.7 INR (BEAKER) (test gqyj=307) 1.2 <=5.9 RECOMMENDED COUMADIN/WARFARIN INR THERAPY RANGESSTANDARD DOSE: 2.0 - 3.0 Inclu arabella: PROPHYLAXIS for venous thrombosis, systemic embolization; TREATMENT for jan ous thrombosis and/or pulmonary embolus.HIGH RISK: Target INR is 2.5-3.5 for pat ients with mechanical heart valves.CBC W/PLT COUNT & AUTO [id number] 13:41:00* Test Item Value Reference Range Comments WHITE BLOOD CELL COUNT (BEAKER) (test metk=446) 8.1 K/ L 4.0-10.0 RED BLOOD CELL COUNT (BEAKER) (test reeh=503) 2.25 M/ L 4.20-5.80 HEMOGLOBIN (BEAKER) (test hcaz=133) 7.8 GM/DL 13.0-16.8 HEMATOCRIT (BEAKER) (test snkk=347) 23.2 % 40.0-50.0 MEAN CORPUSCULAR VOLUME (BEAKER) (test eryx=640) 103.0 fL 82.0-98.0 MEAN CORPUSCULAR HEMOGLOBIN (BEAKER) (test mffj=646) 34.8 pg 27.0-33.0 MEAN CORPUSCULAR HEMOGLOBIN CONC (BEAKER) (test fnlj=445) 33.8 GM/DL 32.0-36.0 RED CELL DISTRIBUTION WIDTH (BEAKER) (test lkvw=539) 16.7 % 10.3-14.2 PLATELET COUNT (BEAKER) (test ebpa=293) 169 K/CU MM 150-430 MEAN PLATELET VOLUME (BEAKER) (test anew=330) 7.4 fL 6.5-10.5 NUCLEATED RED BLOOD CELLS (BEAKER) (test lbyq=657) 0 /100 WBC 0-0 NEUTROPHILS RELATIVE PERCENT (BEAKER) (test yiyr=862) 66 % LYMPHOCYTES RELATIVE PERCENT (BEAKER) (test qxfu=986) 21 % MONOCYTES RELATIVE PERCENT (BEAKER) (test tmrd=048) 8 % EOSINOPHILS RELATIVE PERCENT (BEAKER) (test ejch=159) 5 % BASOPHILS RELATIVE PERCENT (BEAKER) (test sevk=023) 0 % NEUTROPHILS ABSOLUTE COUNT (BEAKER) (test kepy=189) 5.36 K/ L 1.80-8.00 LYMPHOCYTES ABSOLUTE COUNT (BEAKER) (test kcbn=016) 1.67 K/ L 1.48-4.50 MONOCYTES ABSOLUTE COUNT (BEAKER) (test ufvh=296) 0.62 K/ L 0.00-1.30 EOSINOPHILS ABSOLUTE COUNT (BEAKER) (test azny=288) 0.44 K/ L 0.00-0.50 BASOPHILS ABSOLUTE COUNT (BEAKER) (test cvsv=785) 0.04 K/ L 0.00-0.20 0.00ALPHA FETOPROTEIN (AFP), TUMOR [id number] 14:01:00* Test Item Value Reference Range Comments ALPHA-FETOPROTEIN (BEAKER) (test skdo=9309) 4.1 ng/mL <10.0 Effective 09/26/2014: Reference Range ChangeNew: <10.0 Previous: 0.0-8.0 COMPREHENSIVE METABOLIC [id number] 13:39:00* Test Item Value Reference Range Comments TOTAL PROTEIN (BEAKER) (test hrig=337) 8.3 gm/dL 6.0-8.3 ALBUMIN (BEAKER) (test ellm=2811) 4.2 g/dL 3.5-5.0 ALKALINE PHOSPHATASE (BEAKER) (test tzdz=301) 247 U/L 40-150 BILIRUBIN TOTAL (BEAKER) (test gfps=660) 0.6 mg/dL 0.2-1.2 SODIUM (BEAKER) (test tbwa=528) 137 meq/L 136-145 POTASSIUM (BEAKER) (test niao=140) 4.6 meq/L 3.5-5.1 CHLORIDE (BEAKER) (test sqbs=980) 95 meq/L 98-107 CO2 (BEAKER) (test qlik=429) 26 meq/L 22-29 BLOOD UREA NITROGEN (BEAKER) (test gzlr=286) 35 mg/dL 7-21 CREATININE (BEAKER) (test fcai=911) 7.35 mg/dL 0.57-1.25 GLUCOSE RANDOM (BEAKER) (test fkys=807) 120 mg/dL 70-105 CALCIUM (BEAKER) (test dajh=788) 10.1 mg/dL 8.4-10.2 AST (SGOT) (BEAKER) (test rkyc=298) 42 U/L 5-34 ALT (SGPT) (BEAKER) (test wxng=504) 19 U/L 6-55 EGFR (BEAKER) (test jtpd=3876) mL/min/1.73 sq m INSUFFICIENT CLINICAL DATA TO CALCULATE ESTIMATED GFR. BILIRUBIN, [id number] 13:29:00* Test Item Value Reference Range Comments BILIRUBIN DIRECT (BEAKER) (test rtsq=153) 0.3 mg/dL 0.1-0.5 PROTHROMBIN TIME/[id number] 13:13:00* Test Item Value Reference Range Comments PROTIME (BEAKER) (test mtwr=155) 14.0 seconds 11.7-14.7 INR (BEAKER) (test anug=364) 1.1 <=5.9 RECOMMENDED COUMADIN/WARFARIN INR THERAPY RANGESSTANDARD DOSE: 2.0 - 3.0 Inclu arabella: PROPHYLAXIS for venous thrombosis, systemic embolization; TREATMENT for jan ous thrombosis and/or pulmonary embolus.HIGH RISK: Target INR is 2.5-3.5 for pat ients with mechanical heart valves.CBC W/PLT COUNT & AUTO [id number] 13:04:00* Test Item Value Reference Range Comments WHITE BLOOD CELL COUNT (BEAKER) (test scgf=860) 8.1 K/ L 4.0-10.0 RED BLOOD CELL COUNT (BEAKER) (test bmxd=620) 3.73 M/ L 4.20-5.80 HEMOGLOBIN (BEAKER) (test mikk=704) 12.7 GM/DL 13.0-16.8 HEMATOCRIT (BEAKER) (test fugf=089) 35.5 % 40.0-50.0 MEAN CORPUSCULAR VOLUME (BEAKER) (test mgcv=360) 95.1 fL 82.0-98.0 MEAN CORPUSCULAR HEMOGLOBIN (BEAKER) (test bhxr=238) 34.0 pg 27.0-33.0 MEAN CORPUSCULAR HEMOGLOBIN CONC (BEAKER) (test czcb=836) 35.8 GM/DL 32.0-36.0 RED CELL DISTRIBUTION WIDTH (BEAKER) (test yint=451) 15.0 % 10.3-14.2 PLATELET COUNT (BEAKER) (test qnqb=059) 196 K/CU MM 150-430 MEAN PLATELET VOLUME (BEAKER) (test gadd=065) 7.9 fL 6.5-10.5 NUCLEATED RED BLOOD CELLS (BEAKER) (test bmrn=966) 0 /100 WBC 0-0 NEUTROPHILS RELATIVE PERCENT (BEAKER) (test qlgd=784) 53 % LYMPHOCYTES RELATIVE PERCENT (BEAKER) (test rlfv=036) 28 % MONOCYTES RELATIVE PERCENT (BEAKER) (test xdcm=169) 10 % EOSINOPHILS RELATIVE PERCENT (BEAKER) (test bvej=219) 6 % BASOPHILS RELATIVE PERCENT (BEAKER) (test isnm=035) 1 % NEUTROPHILS ABSOLUTE COUNT (BEAKER) (test xxud=136) 4.31 K/ L 1.80-8.00 LYMPHOCYTES ABSOLUTE COUNT (BEAKER) (test tzzm=250) 2.30 K/ L 1.48-4.50 MONOCYTES ABSOLUTE COUNT (BEAKER) (test esie=582) 0.84 K/ L 0.00-1.30 EOSINOPHILS ABSOLUTE COUNT (BEAKER) (test aqnn=644) 0.52 K/ L 0.00-0.50 BASOPHILS ABSOLUTE COUNT (BEAKER) (test qnqt=809) 0.10 K/ L 0.00-0.20 0.00
--- OUTSIDE RECORDS SUMMARY | 2019-06-23 13:44 | XMS REPORT | Continuity of Care Document ---
Author Author [facility] Address [address] [place] [address] Care Team Providers Care Toggle Press Folder And Feeder Name Role Phone Ananda Saravai PCP [place], [place] [facility] Ezeanuna, [place] [facility] Att[facility] DYLAN YANES Rndphys Benson Franks Rndphys Nikolas Trivedi Rndphys Heath Gardner Rndphys Valerie Sprague Rndphys Chris Escoto A Rndphys Law Marin Rndphys Yeison Rowland Rndphys Abad Brown Rndphys Chiquita Osorio Rndphys Adair Rodriguez Rndphys Kaveh Mccrary Rndphys BRENDAN MARKS Rndphys Tanner Malave Rndphys En Lyn Rndphys GadSuresh olvera Rndphys Mel De La Cruz Rndphys Mansi Escoto Rndphys Foreign Chiu Rndphys Maida Issa Rndphys Godwin Tanner Rndphys Suzanna Lua Rndphys Selvin Chavarria Rndphys Brendan Gonzales Rndphys Romaine Tillman Rndphys Abel [place] Rndphys Andrey Polk Rndphys Merritt Garza Rndphys Roger Zhang Rndphys Keely Zhang Rndphys Haroon Busch [facility] Kamlesh Rndphys Veronica Carver Rndphys Sybil Hernández Rndphys Hemant Parker Rndphys Carly'Florecita Oconnor Rndphys Barney Blount Rndphys Candelario Blount Rndphys Darryn Sepulveda Rndphys Kamran Oglesby Rndphys Leonardo Humphries Rndphys Cliff Tucker Rndphys Zak Christian Rndphys BrookeJodyLiza Rndphys Greer Aranda Rndphys Guille Mares Rndphys Jareth [place] Rndphys Vasterese Etiennealberto Rndphys Ayana Cleary Rndphys Raheem Flowers Rndphys Hilda Saez Rndphys Se Morse Rndphys Dax Mccallum Rndphys Allergies, Adverse Reactions, Alerts Allergen Type Severity Reaction Last Updated Verified Status hydrocodone Allergy July 05, 2018 Y Active morphine Allergy July 05, 2018 Y Active Medications Active Medications Medication Dose Units Route Sig Qty Days Start Date Discontinued Date Status Instructions Sevelamer Carbonate 3200 MG PO Twice Daily With Meals March 20, 2018 Active Albuterol Sulfate 2 PUFF INH Every 6 Hours PRN For Sob &/Or Wheezing July 05, 2018 Active Amlodipine 10 MG PO Daily July 05, 2018 Active Aspirin 81 MG PO Daily July 05, 2018 Active Folic Acid/Vit B Comp W-C 1 TAB PO Daily July 05, 2018 Active Esomeprazole Magnesium 80 MG PO Every Morning With Breakfast July 05, 2018 Active Fluticasone Propionate 1 SPRAY EA NARE Daily July 05, 2018 Active Loratadine 10 MG PO Daily July 05, 2018 Active Cholecalciferol 1000 UNITS PO Bedtime July 05, 2018 Active Famotidine 20 MG PO Bedtime November 30, 2018 Active Fluticasone/Vilanterol 1 PUFF IH Daily November 30, 2018 Active Levocetirizine Dihydrochloride 5 MG PO Daily November 30, 2018 Active Metoprolol Tartrate 25 MG PO Twice Daily 60 November 30, 2018 Active Discontinued Medications Medication Dose Units Route Sig Qty Days Start Date Discontinued Date Status Instructions Cephalexin 500 MG PO Every 12 Hours 28 14 November 13, 2017 March 20, 2018 Discontinued Cephalexin 500 MG PO Q12H 28 14 November 13, 2017 March 20, 2018 Discontinued Metronidazole 250 MG PO Three Times Daily 45 November 13, 2017 March 20, 2018 Discontinued Saccharomyces Boulardii 250 MG PO Daily 14 November 13, 2017 March 20, 2018 Discontinued Acetaminophen 500 MG PO Every 4 Hours PRN For pain/fever July 22, 2017 March 20, 2018 Discontinued Amlodipine Besylate 10 MG PO Bedtime July 22, 2017 March 20, 2018 Discontinued Aspirin 81 MG PO Daily July 22, 2017 March 20, 2018 Discontinued Carvedilol 25 MG PO Twice Daily July 22, 2017 March 20, 2018 Discontinued Clonidine 0.1 MG PO Twice Daily July 22, 2017 March 20, 2018 Discontinued Esomeprazole Magnesium 40 MG PO Daily July 22, 2017 March 20, 2018 Discontinued Sevelamer Carbonate 800 MG PO Three Times Daily With Meals July 22, 2017 March 20, 2018 Discontinued Valsartan 160 MG PO Twice Daily July 22, 2017 March 20, 2018 Discontinued Fish Oil 1000 MG PO Bedtime 30 September 22, 2017 March 20, 2018 Discontinued Gemfibrozil 600 MG PO Twice Daily Before Meals 60 September 22, 2017 March 20, 2018 Discontinued Ciprofloxacin 0.2% Otic 1 DROP EA EAR Twice Daily 30 September 22, 2017 October 20, 2017 Discontinued use for next 3 days,then stop. Folic Acid/Vit B Comp W-C 1 TAB PO Daily 30 October 23, 2017 October 30, 2017 Discontinued Saccharomyces Boulardii 250 MG PO Daily 14 October 23, 2017 November 13, 2017 Discontinued Cephalexin 500 MG PO Q12H 20 October 23, 2017 November 13, 2017 Discontinued Metronidazole 250 MG PO Three Times Daily 45 October 23, 2017 November 13, 2017 Discontinued Acetaminophen 1000 MG PO Every 6 Hours PRN For Pain March 20, 2018 March 25, 2018 Discontinued Aspirin 81 MG PO Daily March 20, 2018 July 05, 2018 Discontinued Azithromycin 250 MG PO Daily March 20, 2018 March 25, 2018 Discontinued Benzonatate 100 MG PO Q8H PRN For Cough March 20, 2018 March 30, 2018 Discontinued Calcium Carbonate 750 MG PO As Needed PRN For Gi Upset March 20, 2018 March 30, 2018 Discontinued Carvedilol 25 MG PO Twice Daily March 20, 2018 March 25, 2018 Discontinued Dextromethorphan Polistirex 30 MG PO Q12H PRN For Cough March 20, 2018 March 25, 2018 Discontinued Esomeprazole Magnesium 40 MG PO Every Morning With Breakfast March 20, 2018 July 05, 2018 Discontinued Famotidine 20 MG PO Bedtime March 20, 2018 March 25, 2018 Discontinued Gemfibrozil 600 MG PO Twice Daily Before Meals March 20, 2018 July 05, 2018 Discontinued Minoxidil 10 MG PO Daily March 20, 2018 March 25, 2018 Discontinued Amlodipine 10 MG PO Daily 30 March 25, 2018 March 30, 2018 Discontinued Carvedilol 6.25 MG PO Twice Daily With Meals 60 March 25, 2018 March 30, 2018 Discontinued Cefazolin 3 GM IVPB As Directed March 25, 2018 July 05, 2018 Discontinued after dialysis until 05/08 Guaifenesin Er 600 MG PO Every 12 Hours 14 March 25, 2018 March 30, 2018 Discontinued Levofloxacin 500 MG PO Q2D@2000 3 March 25, 2018 March 29, 2018 Discontinued every other day x 3 dose Saccharomyces Boulardii 250 MG PO Daily 30 March 25, 2018 July 05, 2018 Discontinued Acetaminophen 1000 MG PO Every 6 Hours PRN For Pain March 29, 2018 March 29, 2018 Discontinued Cholecalciferol 1000 UNITS PO Bedtime 30 March 30, 2018 July 05, 2018 Discontinued Folic Acid/Vit B Comp W-C 1 TAB PO Daily March 30, 2018 July 05, 2018 Discontinued Guaifenesin Er 600 MG PO Every 12 Hours April 03, 2018 July 05, 2018 Discontinued Problem List Active Problems Medical Problem Onset Date Status Staphylococcus aureus bacteremia Active ESRD on hemodialysis Active Secondary hyperparathyroidism of renal origin Active DM2 (diabetes mellitus, type 2) Active Anemia in ESRD (end-stage renal disease) Active Physical deconditioning Active Elevated troponin Active Non-alcoholic cirrhosis Active GERD (gastroesophageal reflux disease) Active HTN (hypertension) Active Vitamin D deficiency Active Obesity (BMI 30-39.9) Active Inactive/Resolved Problems Medical Problem Onset Date Status Pericardial effusion Resolved Hypotension Resolved Procedures Procedure Date Status XR Chest 1 View November 29, 2018 completed EKG 12 Lead November 29, 2018 completed XR Fluoro Inherent To Surg Pr November 29, 2018 completed US Vessel Mapping Dialysis Acc November 29, 2018 completed Relevant Diagnostic Tests and/or Laboratory Data Laboratory Results Test Date/Time Result Interp. Ref. Range Result Comment Bedside Glucose November 30, 2018 3:32pm 242 mg/dL High 70-110 Sodium Level November 29, 2018 11:25am 139 mmol/L 136-145 Potassium Level November 29, 2018 11:25am 5.3 mmol/L High 3.5-5.1 Chloride Level November 29, 2018 11:25am 102 mmol/L 98-107 Carbon Dioxide Level November 29, 2018 11:25am 18 mmol/L Low 22-29 Anion Gap November 29, 2018 11:25am 24 mmol/L High 10-20 Blood Urea Nitrogen November 29, 2018 11:25am 110 mg/dL High 8.9-20.6 Creatinine November 29, 2018 11:25am 16.76 mg/dL High 0.7-1.3 Estimated GFR (MDRD) November 29, 2018 11:25am 3 Reference Range for Estimated GFR: Greater than 90 mL/min/1.73 m2 NOTE: The MDRD equation has not been validated for use with the elderly (over 70 years of age), women, patients with serious comorbid condition or persons with extremes of body size, muscle mass, or nutritional status. Glucose Level November 29, 2018 11:25am 87 mg/dL 70-105 Calcium Level November 29, 2018 11:25am 8.5 mg/dL 7.8-10.44 Total Bilirubin November 29, 2018 11:25am 0.9 mg/dL 0.2-1.2 Direct Bilirubin November 29, 2018 11:25am 0.4 mg/dL High 0.1-0.3 Serum Total Protein November 29, 2018 11:25am 7.6 g/dL 6.0-8.3 Albumin November 29, 2018 11:25am 4.0 g/dL 3.5-5.0 Alkaline Phosphatase November 29, 2018 11:25am 167 U/L High 40-150 Aspartate Amino Transf (AST/SGOT) November 29, 2018 11:25am 24 U/L 5-34 Alanine Aminotransferase (ALT/SGPT) November 29, 2018 11:25am 7 U/L Low 8-55 Hepatitis B Surface Antigen November 29, 2018 7:30pm Non-Reactive S/CO White Blood Count November 29, 2018 11:25am 6.5 thou/uL 4.8-10.8 Red Blood Count November 29, 2018 11:25am 2.84 mill/uL Low 4.70-6.10 Hemoglobin November 29, 2018 11:25am 9.3 g/dL Low 14.0-18.0 Hematocrit November 29, 2018 11:25am 27.0 % Low 42.0-52.0 Mean Corpuscular Volume November 29, 2018 11:25am 95.0 fL 78.0-98.0 Mean Corpuscular Hemoglobin November 29, 2018 11:25am 32.8 pg High 27.0-31.0 Mean Corpuscular Hemoglobin Concent November 29, 2018 11:25am 34.5 g/dL 32.0-36.0 Red Cell Distribution Width November 29, 2018 11:25am 14.3 % 11.5-14.5 Platelet Count November 29, 2018 11:25am 104 thou/uL Low 130-400 Mean Platelet Volume November 29, 2018 11:25am 8.2 fL 7.4-10.4 Neutrophils % November 29, 2018 11:25am 72.5 % 42.0-75.0 Lymphocytes % November 29, 2018 11:25am 17.3 % Low 21.0-51.0 Monocytes % November 29, 2018 11:25am 4.0 % 0.0-10.0 Eosinophils % November 29, 2018 11:25am 5.1 % 0.0-10.0 Basophils % November 29, 2018 11:25am 1.0 % 0.0-1.0 Neutrophils # November 29, 2018 11:25am 4.7 thou/uL 1.40-6.50 Lymphocytes # November 29, 2018 11:25am 1.1 thou/uL Low 1.20-3.40 Monocytes # November 29, 2018 11:25am 0.3 thou/uL 0.11-0.59 Eosinophils # November 29, 2018 11:25am 0.3 thou/uL 0.0-0.7 Basophils # November 29, 2018 11:25am 0.1 thou/uL 0.0-0.2 Neutrophils % (Manual) November 29, 2018 11:25am Not Reportable Platelet Morphology Comment November 29, 2018 11:25am Appears Decreased Low Red Cell Morphology Comment November 29, 2018 11:25am Normal Prothrombin Time November 29, 2018 11:25am 15.9 SEC High 12.0-14.7 INR International Normalized Ratio November 29, 2018 11:25am 1.3 ATTENTION: READ CAREFULLY The recommended therapeutic ranges for oral anticoagulant treatments are: Low Intensity: 1.5 - 2.0 Moderate Intensity: 2.0 - 3.0 High Intensity (1): 2.5 - 3.5 High Intensity (2): 3.0 - 4.0 CRITICAL: > 4.0 Activated Partial Thromboplast Time November 29, 2018 11:25am 48.0 SEC High 22.9-36.1 Advance Directives Advance Directive Response Recorded Date/Time Advance Directives No July 22, 2017 2:30pm Chief Complaint and Reason for Visit Encounter Admit Date Chief Complaint Reason for Visit Discharged Inpatient November 29, 2018 10:22am INSERTION [facility] Hospital Discharge Instructions Additional Discharge Instructions YOU MAY CONTINUE/RESUME YOUR DIALYSIS TREATMENT ON THURSDAY'S, S, AND S. Instruction/Education Provided Dialysis Arteriovenous Fistula Exercises Hand Wrist FOCUS: Transition from Acute Care after Discharge GOAL: Successful transition to care in the community YOUR TASKS: (1) review all information outlined in your discharge packet (2) follow any instructions outlined in your discharge packet (3) contact your primary care provider if you have questions or need additional assistance Hospital Discharge Medications Medication Dose Units Route Sig Qty Days Order Date Status Instructions Cephalexin 500 MG PO Every 12 Hours 28 November 13, 2017 Discontinued Cephalexin 500 MG PO Q12H 28 November 13, 2017 Discontinued Metronidazole 250 MG PO Three Times Daily 45 November 13, 2017 Discontinued Saccharomyces Boulardii 250 MG PO Daily November 13, 2017 Discontinued Acetaminophen 500 MG PO Every 4 Hours PRN For pain/fever July 22, 2017 Discontinued Amlodipine Besylate 10 MG PO Bedtime July 22, 2017 Discontinued Aspirin 81 MG PO Daily July 22, 2017 Discontinued Carvedilol 25 MG PO Twice Daily July 22, 2017 Discontinued Clonidine 0.1 MG PO Twice Daily July 22, 2017 Discontinued Esomeprazole Magnesium 40 MG PO Daily July 22, 2017 Discontinued Sevelamer Carbonate 800 MG PO Three Times Daily With Meals July 22, 2017 Discontinued Valsartan 160 MG PO Twice Daily July 22, 2017 Discontinued Fish Oil 1000 MG PO Bedtime 30 September 22, 2017 Discontinued Gemfibrozil 600 MG PO Twice Daily Before Meals 60 September 22, 2017 Discontinued Ciprofloxacin 0.2% Otic 1 DROP EA EAR Twice Daily September 22, 2017 Discontinued use for next 3 days,then stop. Folic Acid/Vit B Comp W-C 1 TAB PO Daily October 23, 2017 Discontinued Saccharomyces Boulardii 250 MG PO Daily October 23, 2017 Discontinued Cephalexin 500 MG PO Q12H October 23, 2017 Discontinued Metronidazole 250 MG PO Three Times Daily 45 October 23, 2017 Discontinued Acetaminophen 1000 MG PO Every 6 Hours PRN For Pain March 20, 2018 Discontinued Aspirin 81 MG PO Daily March 20, 2018 Discontinued Azithromycin 250 MG PO Daily March 20, 2018 Discontinued Benzonatate 100 MG PO Q8H PRN For Cough March 20, 2018 Discontinued Calcium Carbonate 750 MG PO As Needed PRN For Gi Upset March 20, 2018 Discontinued Carvedilol 25 MG PO Twice Daily March 20, 2018 Discontinued Dextromethorphan Polistirex 30 MG PO Q12H PRN For Cough March 20, 2018 Discontinued Esomeprazole Magnesium 40 MG PO Every Morning With Breakfast March 20, 2018 Discontinued Famotidine 20 MG PO Bedtime March 20, 2018 Discontinued Gemfibrozil 600 MG PO Twice Daily Before Meals March 20, 2018 Discontinued Minoxidil 10 MG PO Daily March 20, 2018 Discontinued Sevelamer Carbonate 3200 MG PO Twice Daily With Meals March 20, 2018 Active Amlodipine 10 MG PO Daily 30 March 25, 2018 Discontinued Carvedilol 6.25 MG PO Twice Daily With Meals 60 March 25, 2018 Discontinued Cefazolin 3 GM IVPB As Directed March 25, 2018 Discontinued after dialysis until 05/08 Guaifenesin Er 600 MG PO Every 12 Hours March 25, 2018 Discontinued Levofloxacin 500 MG PO Q2D@2000 3 March 25, 2018 Discontinued every other day x 3 dose Saccharomyces Boulardii 250 MG PO Daily March 25, 2018 Discontinued Acetaminophen 1000 MG PO Every 6 Hours PRN For Pain March 29, 2018 Discontinued Cholecalciferol 1000 UNITS PO Bedtime March 30, 2018 Discontinued Folic Acid/Vit B Comp W-C 1 TAB PO Daily March 30, 2018 Discontinued Guaifenesin Er 600 MG PO Every 12 Hours April 03, 2018 Discontinued Albuterol Sulfate 2 PUFF INH Every 6 Hours PRN For Sob &/Or Wheezing July 05, 2018 Active Amlodipine 10 MG PO Daily July 05, 2018 Active Aspirin 81 MG PO Daily July 05, 2018 Active Folic Acid/Vit B Comp W-C 1 TAB PO Daily July 05, 2018 Active Esomeprazole Magnesium 80 MG PO Every Morning With Breakfast July 05, 2018 Active Fluticasone Propionate 1 SPRAY EA NARE Daily July 05, 2018 Active Loratadine 10 MG PO Daily July 05, 2018 Active Cholecalciferol 1000 UNITS PO Bedtime July 05, 2018 Active Famotidine 20 MG PO Bedtime November 30, 2018 Active Fluticasone/Vilanterol 1 PUFF IH Daily November 30, 2018 Active Levocetirizine Dihydrochloride 5 MG PO Daily November 30, 2018 Active Metoprolol Tartrate 25 MG PO Twice Daily 60 November 30, 2018 Active Encounters Encounter Facility Location Admit Date Discharge Date Attending Provider Discharged Inpatient [facility] SURG ORTHO B November 29, 2018 10:22am November 30, 2018 4:56pm Giuseppe Meneses Registered Clinical REFERENCE LAB [facility] November 26, 2018 5:14pm Giuseppe Meneses Family History Query Response Instance Date Recorded Comment Family Stroke No Mother March 29, 2018 6:28pm Family Stroke Yes Father March 29, 2018 6:28pm Family Myocardial Infarction Yes Mother March 29, 2018 6:28pm Family Myocardial Infarction Yes Father March 29, 2018 6:28pm Family Diabetes Yes Mother March 29, 2018 6:28pm Family Diabetes Yes Father March 29, 2018 6:28pm Family Coronary Artery Disease No Mother March 29, 2018 6:28pm Family Coronary Artery Disease No Father March 29, 2018 6:28pm Family Congenital Heart Disease No Mother March 29, 2018 6:28pm Family Congenital Heart Disease No Father March 29, 2018 6:28pm Family Colorectal Cancer No Mother March 29, 2018 6:28pm Family Colorectal Cancer No Father March 29, 2018 6:28pm Family Breast Cancer No Mother March 29, 2018 6:28pm Family Breast Cancer No Father March 29, 2018 6:28pm Functional Status No known functional status. Immunizations No known immunizations. Payers Payer Name Policy Type Covered Democrat Covered Democrat Id Relationship Subscriber Subscriber Id MEDICAID [facility] Medicaid MARCO A MCKENNA [id number] SELF MARCO A MCKENNA [id number] MEDICARE Medicare Part A MARCO A MCKENNA [id number] SELF MARCO A MCKENNA [id number] Plan of Care Instructions Dialysis Arteriovenous Fistula Exercises Hand Wrist FOCUS: Transition from Acute Care after Discharge GOAL: Successful transition to care in the community YOUR TASKS: (1) review all information outlined in your discharge packet (2) follow any instructions outlined in your discharge packet (3) contact your primary care provider if you have questions or need additional assistance Social History Query Response Date Recorded Comment Recreational Drug use Denies October 26, 2017 8:45pm Smoking Status Former smoker October 20, 2017 12:43am Vital Signs Vital Reading Result Reference Range Collection Date/Time Height 1.7 m November 30, 2018 12:00am Weight 97.477 kg November 30, 2018 12:00am Temperature 98.3 F 97.6 F-99.6 F November 30, 2018 3:33pm Pulse 72 BPM 60-100 November 30, 2018 3:33pm Respiration 16 RPM -November 30, 2018 3:33pm Pulse Oximetry 95 % 95-100 November 30, 2018 3:33pm Blood Pressure Systolic 172 90-140 November 30, 2018 3:58pm Blood Pressure Diastolic 70 60-90 November 30, 2018 3:58pm Body Mass Index 33.6 November 30, 2018 12:00am
[2019-06-23] MEDS ORDERED: PIPER-TAZ 3.375 GM 50 ML IV ONE (13:46)
[2019-06-23] MEDS ORDERED: SODIUM CHLORIDE 0.9% 1000ML 1,000 ML IV STA (13:46)
[2019-06-23] MEDS ORDERED: VANCOMYCIN 1GM/NS 250 ML 250 ML IV ONE (13:46)
--- NOTE | 2019-06-23 14:59 | Diagnostic Imaging Report ---
Chest, 1 view, 06/23/2019. History: Diabetic ulcer. Comparison: None available. Findings: The cardiomediastinal silhouette and pulmonary vasculature are within normal limits for a portable exam. There is no focal consolidation or pleural effusion. There are no acute osseous or soft tissue abnormalities. Impression: No acute cardiopulmonary abnormality. Signed by: Yeison Hanson on 06/23/2019 2:55 PM
--- NOTE | 2019-06-23 15:29 | Diagnostic Imaging Report ---
Left foot, 3 views. History: Diabetic ulcer. Findings: There is distal soft tissue swelling centered around the first MTP with ulceration. There is no visible adjacent lytic lesion or periosteal reaction. Vascular calcifications are present. The bones are diffusely osteopenic. 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 Resorption of the third distal metatarsal is present. Sclerosis and irregularity are present at the first tarsometatarsal joint suggestive of Charcot joint. IMPRESSION: Distal soft tissue swelling with ulceration. No acute osseous findings. Nuclear medicine bone scan or MRI would be more sensitive for early detection of osteomyelitis. Signed by: Yeison Hanson on 06/23/2019 3:25 PM
[2019-06-23 15:47] LABS: BASOPHILS # (AUTO) 0.1 (0.0-0.1); BASOPHILS % 0.9 % (0.0-1.0); EOSINOPHILS # (AUTO) 0.2 (0.0-0.4); EOSINOPHILS % 3.7 % (0.0-6.0); HEMATOCRIT 32.1 % (38.2-49.6); HEMOGLOBIN 11.4 g/dL (14.0-18.0); LYMPHOCYTES # (AUTO) 1.2 (1.0-3.2); LYMPHOCYTES % 22.1 % (18.0-39.1); MEAN CORPUSCULAR HGB CONC 35.5 g/dL (31-35); MEAN CORPUSCULAR VOLUME 95.8 fL (81-99); MONOCYTES # (AUTO) 0.4 (0.2-0.8); NEUTROPHILS # (AUTO) 3.7 (2.1-6.9); NEUTROPHILS % 65.8 % (38.7-80.0); PLATELET COUNT 119 x10e3/uL (140-360); RED BLOOD COUNT 3.35 x10e6/uL (4.3-5.7); RED CELL DISTRIBUTION WIDTH 12.9 % (11.7-14.4)
[2019-06-23 16:03] LABS: ALBUMIN 3.5 g/dL (3.5-5.0); ALBUMIN/GLOBULIN RATIO 0.9 (0.8-2.0); ANION GAP 15.4 mmol/L (8-16); CALCIUM 8.2 mg/dL (8.4-10.2); CREATININE, SERUM 8.78 mg/dL (0.72-1.25); POTASSIUM 4.4 mmol/L (3.5-5.1)
[2019-06-23 16:09] LABS: CREATINE KINASE MB 2.2 ng/mL (0-5.0)
[2019-06-23 16:13] LABS: B-TYPE NATRIURETIC PEPTIDE2 449.1 pg/mL (0-100)
[2019-06-23] MEDS ORDERED: BREO INH (16:21)
[2019-06-23] MEDS ORDERED: LORATADINE10 MG PO (16:21)
[2019-06-23] MEDS ORDERED: AMLODIPINE BESY10 MG PO (16:21)
[2019-06-23] MEDS ORDERED: NEXIUM40 MG PO (16:21)
[2019-06-23] MEDS ORDERED: FLONASE INH (16:21)
[2019-06-23] MEDS ORDERED: RENAGEL800 MG PO (16:21)
[2019-06-23] MEDS ORDERED: LEVOCETIRIZINE D5 MG PO (16:21)
[2019-06-23] MEDS ORDERED: CHOLECALCIFEROL1 GM PO (16:21)
[2019-06-23] MEDS ORDERED: FAMOTIDINE20 MG PO (16:21)
[2019-06-23] MEDS ORDERED: ASPIR 8181 MG PO (16:21)
[2019-06-23] MEDS ORDERED: ONDANSETRON HCL INJ 2MG/ML 2ML 2 MG/ML VIAL IV PRN (16:30)
[2019-06-23 16:49] LABS: PLATELET ESTIMATE SLIGHTLY INCREASED; PLATELET MORPHOLOGY COMMENT NORMAL; RBC MORPHOLOGY COMMENT NORMAL
[2019-06-23] MEDS: SODIUM CHLORIDE 0.9% 1000ML 1,000 ML IV SCH (16:51)
--- OUTSIDE RECORDS SUMMARY | 2019-06-23 16:56 | XMS REPORT | Clinical Summary ---
Author Author TAMIKO [employer] [facility] Organization [facility] Address Unknown Phone Unavailable Care Team Providers Care Sheet Rocker Name Role Phone Stanton Frazier MD PCP [...] reviewed. Continue follow up with PCP and Tie Layer. Diabetes mellitus type 2 in obese 02/14/2016 [...] recommended. Encounters Care Team Description Date Type Db2 DeveloperMadeline Tafoya RN Awaiting organ transplant status (Primary [...] Transplant Hepatology Willa Saunders Appointment (Scheduled 02/01 [facility] f/u appt in [place] clinic, mri [...] until new address is updated in transport [employer] computer. Pt will call if he is [...] Daniella Odell MD 12/06/2018 Outside Orders Willa Saunders Appointment (Called to schedule labs [...] been able to schedule his labs at [facility] he said he needs to schedule his appt online but is not able to do it. I asked pt to call and let me know when he schedules so i can release orders.) 08/30/2018 Telephone Transplant Hepatology Willa Saunders Appointment (Pt called and said he has not been able to schedule his labs at [facility] he said he needs to schedule his appt online but is not able to do it. I asked pt to call and let me know when he schedules so i can release orders.) 08/30/2018 Telephone Transplant Hepatology Willa Saunders Appointment (Called pt to schedule [facility] labs pt said he would go to [facility] on 08/26.) 08/23/2018 Telephone Transplant Hepatology Madeline [...] 01/04/2019 Awaiting organ transplant PANEL 8:36 AM NIGHT WAREHOUSE MANAGER status Cirrhosis of liver without ascites, unspecified hepatic cirrhosis type (HCC) CBC W/PLT COUNT & AUTO Routine 01/04/2019 Awaiting organ transplant DIFFERENTIAL 8:36 AM NIGHT WAREHOUSE MANAGER status Cirrhosis of liver without ascites, unspecified hepatic cirrhosis type (HCC) PROTHROMBIN TIME/INR Routine 01/04/2019 Awaiting organ transplant 8:36 AM NIGHT WAREHOUSE MANAGER status Cirrhosis of liver without ascites, unspecified hepatic cirrhosis type (HCC) BILIRUBIN, DIRECT Routine 01/04/2019 Awaiting organ transplant 8:36 AM NIGHT WAREHOUSE MANAGER status Cirrhosis of liver without ascites, unspecified hepatic cirrhosis type (HCC) ALPHA FETOPROTEIN (AFP), Routine 01/04/2019 Awaiting organ transplant TUMOR MARKER 8:36 AM NIGHT WAREHOUSE MANAGER status Cancer screening Cirrhosis of liver without ascites, unspecified hepatic cirrhosis type (HCC) CBC W/PLT COUNT & AUTO STAT 12/07/2018 DIFFERENTIAL 2:03 PM NIGHT WAREHOUSE MANAGER PT/APTT STAT 12/07/2018 2:03 PM NIGHT WAREHOUSE MANAGER BASIC METABOLIC PANEL (7) STAT 12/07/2018 2:03 PM NIGHT WAREHOUSE MANAGER CBC W/PLT COUNT & AUTO STAT 12/07/2018 DIFFERENTIAL 2:03 PM NIGHT WAREHOUSE MANAGER BLOOD CULTURE STAT 12/07/2018 2:03 PM NIGHT WAREHOUSE MANAGER CBC W/PLT COUNT & AUTO STAT 07/27/2018 [...] CDT) Specimen Narrative Performed At FINAL REPORT [facility] Bone mineral density study 05/03/2019. HISTORY PROVIDED: [...] SYSTEM Immature 0 0 - 1 % [facility] Granulocytes-Relative [facility] Specimen Blood Performing Organization Address City/[facility] Phone Number [address] [address] [facility] * Prothrombin time/INR (05/03/2019 9:41 AM CDT) Only the most recent of 6 results within the time period is included. Protime 15.0 (H) 11.9 - 14.2 seconds [facility] INR 1.2 <=5.9 [facility] Specimen Blood Narrative Performed At Effective 04/06/2019: PT Reference Range Change [facility] New: 11.9-14.2Previous: 11.7-14.7 [facility] RECOMMENDED COUMADIN/WARFARIN INR THERAPY RANGES STANDARD DOSE: 2.0-3.0Includes: PROPHYLAXIS for venous thrombosis, systemic embolization; TREATMENT for venous thrombosis and/or pulmonary embolus. HIGH RISK: Target INR is 2.5-3.5 for patients wiht mechanical heart valves. Performing Organization Address [facility] Centercotn Phone Number [address] [address] [phone] [place] [address] * Hemoglobin A1c (05/03/2019 9:41 AM CDT) Hemoglobin A1C 6.3 (H) 4.3 - 6.1 % [facility] Specimen Blood Performing Organization Address City/[facility] Cent[facility]ode Phone Number [address] [address] [facility] * Bilirubin, direct (05/03/2019 9:41 AM CDT) Only the most recent of 5 results within the time period is included. Bilirubin, Direct 0.4 0.1 - 0.5 mg/dL [facility] Specimen Blood Performing Organization Address [facility] Cent[facility]ode Phone Number [address] [address] [facility] * Lipid panel (05/03/2019 9:41 AM CDT) Triglycerides 160 mg/dL [facility] Cholesterol 139 mg/dL [facility] HDL 34 mg/dL [facility] LDL Calculated 73 mg/dL [facility] Specimen Blood Narrative Performed At Triglyceride Reference Range: [facility] Low Risk <150 [facility] [id number] High Risk 200-499 Very High Risk>=500 Cholesterol Reference Range: Low Risk <200 [id number] High Risk>240 HDL Cholesterol Reference Range: Low Risk >=60 High Risk <40 LDL Cholesterol Reference Range: Optimal<100 Near [id number] Very High >=190 Performing Organization Address City/State/Zipcode Phone Number [facility] [address] [place] [address] [facility] * Comprehensive metabolic panel (05/03/2019 9:41 [...] ESTIMATED GFR IS NOT mL/min/1.73 sq m [facility] ACCURATE CREATININE [facility] CLEARANCE IN PREDICTING GLOMERULAR FILTRATION RATE. ESTIMATED GFR IS NOT APPLICABLE FOR DIALYSIS PATIENTS. Specimen Blood Performing Organization Address City/State/Zipcode Phone Number [facility] [address] [place] [address] [facility] * CBC with platelet count + [...] Performing Organization Information: Site ID: [id number] Name: [employer] [facility] Address: [address] [place] [address] Director: Steph Garcia Performing Organization Address City/State/Zipcode Phone Number [place] [address] [place] [address] [facility] * CT abdomen with and without contrast liver prctocol-triple phase (02/01/2019 12:06 PM CDT) Specimen Narrative Performed At FINAL REPORT [email or web address] RIS ABDOMINAL CT DATED 02/01/2019 CLINICAL INFORMATION:cirrhosis, [...] MD Report Verified Date/Time:02/01/2019 15:39:07 Reading Location: [address] Radiology Reading Room Procedure Note Interface, [...] Report Verified Date/Time: 02/01/2019 15:39:07 Reading Location: [address] Radiology Reading Room Performing Organization Address City/[facility] Centercode Phone Number [facility] * Iron, TIBC, % sat. (without ferritin) (02/01/2019 11:40 AM CDT) Iron 65.0 40.0 - 160.0 ug/dL [facility] TIBC 265 250 - 450 ug/dL [facility] Iron % Saturation 25 20 - 55 % [facility] Specimen Blood Performing Organization Address City/[facility]/Zipcode Phone Number [facility] [address] [place] [address] MEDICAL CENTER * Ferritin (02/01/2019 11:40 AM CDT) Ferritin 488 (H) 5 - 275 ng/mL [facility] Specimen Blood Performing Organization Address City/[facility]/Zipcode Phone Number [facility] [address] [place] [address] [facility] * Alpha fetoprotein (AFP), tumor marker (01/04/2019 8:36 AM NIGHT WAREHOUSE MANAGER) Alpha-Fetoprotein 3.7 <6.1 ng/mL [facility] Comment: This test was performed using the Katty Bonifay chemiluminescent method. Values obtained from different assay methods cannot be used interchangeably. AFP levels, regardless of value, should not be interpreted as absolute evidence of the presence or absence of disease. Specimen Blood Resulting Agency Comment Performing Organization Information: Site ID: [id number] Name: [facility] Address: [address] [place] [id number] Director: Dr. Oliverio Martinez Performing Organization Address City/[facility] Centercode Phone Number [place] [phone] [place] [address] [employer] * PT/aPTT (12/07/2018 2:03 PM NIGHT WAREHOUSE MANAGER) Protime 14.9 (H) 11.7 - 14.7 seconds [facility] INR 1.2 <=5.9 [facility] PTT 44.0 (H) 22.5 - 36.0 seconds [facility] Specimen Blood Narrative Performed At RECOMMENDED COUMADIN/WARFARIN INR THERAPY RANGES [facility] STANDARD DOSE: 2.0 - 3.0 Includes: PROPHYLAXIS for venous thrombosis, [facility] systemic embolization; TREATMENT for venous thrombosis and/or pulmonary embolus. HIGH RISK: Target INR is 2.5-3.5 for patients with mechanical heart valves. Performing Organization Address City/[facility]/Zipcode Phone Number [facility] [address] [place] [address] [facility] * Blood culture (12/07/2018 2:03 PM NIGHT WAREHOUSE MANAGER) Result No growth in 5 days [facility] Specimen Blood Performing Organization Address [facility]/Zipcode Phone Number [facility] [address] [place] [address] [facility] * Basic metabolic panel (Na, K+, Cl, CO2, Glu, Ca, BUN, Cr) (12/07/2018 2:03 PM NIGHT WAREHOUSE MANAGER) Only the most recent of 2 results [...] EGFR Comment: INSUFFICIENT CLINICAL mL/min/1.73 sq m [facility] DATA TO CALCULATE ESTIMATED [facility] GFR. Specimen Blood Performing Organization Address City/[facility]/Zipcode Phone Number [address] * Lipase (07/27/2018 2:53 PM CDT) Lipase 63 8 - 78 U/L [facility] Specimen Blood Performing Organization Address City/[facility]ode Phone Number [address] * Amylase (07/27/2018 2:53 PM CDT) Amylase 81 25 - 125 U/L [facility] Specimen Blood Performing Organization Address City/[facility]/Zipcode Phone Number [address] * Hepatic function panel (07/27/2018 2:53 [...] Blood Performing Organization Address City/State/Zipcode Phone Number [facility] [address] [place] [address] [facility] after 06/22/2018 Insurance Payer Benefit Subscriber ID Type Phone Address Plan / Group MEDICARE MEDICARE A xxxxxxxxxxx Medicare B MEDICAID - MEDICAID [facility] xxxxxxxxx Medicaid CARE COMM STAR Contracted PLAN Advance Directives Patient has advance care planning documents, and code status on file. For more i nformation, please contact: [facility] [address] [place], [place] [phone] Date Inactivated Comments Code Status Date Activated 03/05/2016 8:04 AM Full Code 03/04/2016 6:39 PM This code status was determined by: Patient
[2019-06-23] MEDS ORDERED: DEXTROSE 50% SYRINGE 50 ML IV PRN (19:30)
[2019-06-23 19:33] VITALS: BP 188/88
[2019-06-23 19:50] VITALS: BP 188/88
[2019-06-23] MEDS ORDERED: PIPERACILLIN/TAZO 2.25 GM 50 ML IV SCH (21:00)
[2019-06-23] MEDS ORDERED: B COMPLEX-FOLI1 EACH PO (21:43)
[2019-06-23] MEDS ORDERED: FLUTICASONE PRO16 GM (21:43)
[2019-06-23] MEDS ORDERED: VENTOLIN HFA18 GM INH (21:43)
[2019-06-23] MEDS ORDERED: CALCIUM CARBON500 MG PO (21:45)
[2019-06-23] MEDS: INSULIN REGULAR, HUMAN 100 UNIT/1 ML 3ML VIAL SQ SCH (21:55)
[2019-06-23 23:57] VITALS: BP 181/86
[2019-06-24] VITALS (7 sets, daily range): BP systolic 142–189; BP diastolic 68–89
--- NOTE | 2019-06-24 01:57 | NUR ---
patient does not know who renal MD is as he recently moved back to [place]. Will call dialysis center in AM to get info. [phone].
[2019-06-24] MEDS ORDERED: PIPERACILLIN/TAZO 2.25 GM 50 ML IV SCH (04:00)
--- NOTE | 2019-06-24 05:43 | NUR ---
Spoke to dialysis center. Patients nephrology MD is Nicki Fox.
--- NOTE | 2019-06-24 07:02 | NUR ---
SPOKE TO DR ODONNELL ABOUT NEPHROLOGY CONSULT. NEW ORDERS RECEIVED.
--- NOTE | 2019-06-24 07:16 | NUR ---
FERNANDO CALLED AND PLACED ON LIST FOR DIALYSIS TODAY. SPOKE TO LIZETT.
--- NOTE | 2019-06-24 08:01 | NUR ---
Pt in bed. Aox4 and able to verbalize needs. Denies any pain at this time. Dr. Fox consulted for dialysis which is to be done today. 0 s/s of acute distress noted.
[2019-06-24] MEDS: SEVELAMER CARBONATE 800 MG TAB PO SCH ×3 (08:14→16:58)
[2019-06-24] MEDS: FOLIC ACID/CYANOCOB/PYRIDOXINE TAB PO SCH (08:15)
[2019-06-24] MEDS: ASPIRIN 81 MG CHEW TAB PO SCH (08:15)
[2019-06-24] MEDS: AMLODIPINE BESYLATE 10 MG TAB PO SCH (08:15)
[2019-06-24] MEDS: LORATADINE 10 MG TAB PO SCH (08:15)
[2019-06-24] MEDS: CHOLECALCIFEROL 1,000 UNIT TAB PO SCH (08:16)
[2019-06-24] MEDS: PANTOPRAZOLE SOD 40 MG TABEC PO SCH (08:16)
[2019-06-24] MEDS: INSULIN REGULAR, HUMAN 100 UNIT/1 ML 3ML VIAL SQ SCH ×4 (08:17→21:41)
[2019-06-24] MEDS ORDERED: LORATADINE 10 MG TAB PO SCH (09:00)
[2019-06-24] MEDS: BREO INH SCH (09:00)
[2019-06-24] MEDS: ALBUTEROL SULFATE HFA 8GM INHALATION AEROSOL INH SCH (09:00)
[2019-06-24] MEDS: FLUTICASONE PROPIONATE NASAL SPRAY NS SCH (09:30)
[2019-06-24] MEDS: SODIUM CHLORIDE 0.9% 1000ML 1,000 ML IV SCH (12:21)
--- NOTE | 2019-06-24 12:29 | NUR ---
EDUCATED ABOUT IMM, SIGNED, FILED IN CHART, WITH COPY LEFT WITH FAMILY AT BEDSIDE.
--- NOTE | 2019-06-24 12:47 | NUR ---
WOUND CARE CONSULTATION: THIS IS A 48 YEAR OLD MALE PATIENT ADMITTED TO [facility] FOR LEFT DIABETIC ULCER. PATIENT HAS HISTORY OF DM TYPE 2 AND KIDNEY FAILURE WITH CURRENT DIALYSIS. HEAD TO TOE SKIN ASSESSMENT PERFORMED. PATIENT HAS OLD SCARS FROM PREVIOUS AMPUTATION SITES TO THE LEFT FOOT 2ND AND 4TH TOES AND THE RIGHT FOOT 3RD TOE. PATIENT HAS A LEFT FOOT PLANTAR DIABETIC ULCER LUTHER 2, MEASURING 6.7X6.2X0.3CM WITH 30% RED GRANULAR TISSUE AND 70% ESCHAR AND SLOUGH TO WOUND BED WITH DRY SCALY CALLUS PERIWOUND, WITH MODERATE SEROSANGUINEOUS DRAINAGE AND MALODOR UPON ASSESSMENT. (WOUND CULTURE PENDING). PATIENT STATED THAT THE ULCER STARTED A BLISTER AND OPENED UP TWO DAYS AGO. LEFT FOOT DP PULSES STRONGLY PALPABLE, AND LEFT FOOT PT PULSES WEAKLY PALPABLE. DR. CALABRESE ON THE CASE FOR PODIATRY. LABS: WBC5.61 ALB3.5 [id number] BLOOD CULTURE = PENDING WOUND CULTURE = PENDING MRI LEFT FOOT = PENDING XRAY LEFT FOOT = CHARCOT JOINT, AND DISTAL SOFT TISSUE SWELLING WITH ULCERATION NOTED; MRI RECOMMENDED (ORDERED AND PENDING) MEDICATIONS: NABEELSYN RECOMMENDATIONS: -APPLY ALTERNATING PRESSURE RELIEF MATTRESS. -APPLY BILATERAL HEEL PROTECTORS WITH PILLOW SUSPENSION. -TURN EVERY 2 HOURS AND PRN. -NURSING TO CLEAN LEFT PLANTAR FOOT DIABETIC ULCER LUTHER 2 WITH NORMAL SALINE, PAT DRY, APPLY BETADINE THEN 4X4 AND MAXORB AG, KERLIX; CHANGE DRESSING DAILY AND PRN. THANK YOU FOR THIS WOUND CARE CONSULT. Addendum: 06/24/19 at 1305 by Asha Gatica RN Amended: Links added.
--- NOTE | 2019-06-24 14:00 | NUR ---
Pt had hemodialysis treatment and 3L removed. Right forearm fistula has pressure dressing and no bleeding noted site.
--- NOTE | 2019-06-24 16:03 | Diagnostic Imaging Report ---
MRI of the left forefoot without contrast. History: Foot pain. Osteomyelitis. Blister. Ulcer on side of great toe. Technique: Multiplanar multisequence MRI of the foot without contrast Comparison: Radiographs 06/23/2019 Findings: Abnormal soft tissue edema and skin blistering adjacent to the first metatarsophalangeal joint medially with apparent skin ulceration. No well-formed drainable fluid collection/abscess is seen. No underlying cortical destruction or focal bone marrow edema is seen to suggest osteomyelitis. Diffuse muscle atrophy. No acute fracture, subluxation or avascular necrosis. Scattered degenerative change most pronounced at the proximal first metatarsal/cuneiform articulation. Prior amputation of the fourth toe at the level of the distal fourth metatarsal with associated postsurgical change. Chronic appearing deformity of the third metatarsophalangeal joint with apparent prior resection of the distal third metatarsal. Prior resection of the second toe at the level of the distal metatarsal with associated postsurgical change. No ligamentous or tendon tear is seen. The visualized neurovascular bundles are intact. Impression: Abnormal soft tissue edema and skin blistering adjacent to the first metatarsophalangeal joint medially with apparent skin ulceration. No well-formed drainable fluid collection/abscess is seen. Findings are most likely due to cellulitis. No underlying cortical destruction or focal bone marrow edema is seen to suggest osteomyelitis. Signed by: Dr. Gurinder Skinner M.D. on 06/24/2019 4:00 PM
[2019-06-24] MEDS: PIPERACILLIN/TAZO 2.25 GM 50 ML IV SCH (16:57)
[2019-06-24] MEDS: FAMOTIDINE 20 MG TAB PO SCH (21:47)
[2019-06-24] MEDS: OYST-CAL-D 500MG TABLET PO SCH (21:47)
[2019-06-25] VITALS (8 sets, daily range): BP systolic 154–169; BP diastolic 67–90
--- NOTE | 2019-06-25 00:10 | Consultation ---
DATE OF CONSULTATION: 06/24/2019 REASON FOR ADMISSION: Cellulitis, left foot. REASON FOR CONSULTATION: Further management of end-stage renal disease. HISTORY OF PRESENT ILLNESS: The patient is examined, chart reviewed and events noted. Discussed with Dr. Christiano Sun. The patient is a 48-year-old male with past medical history significant for type 2 diabetes, hypertension, peripheral vascular disease, end-stage renal disease, asthma and coronary artery disease. The patient apparently was having an ulcer of the left foot which is offensive and very foul smelling. The patient was seen by Dr. Sun and was admitted for further management. Dr. Sun feels that probably the patient has osteomyelitis. PAST MEDICAL HISTORY: Significant for: 1. Type 2 diabetes. 2. Hypertension. 3. Peripheral vascular disease. 4. Coronary artery disease. 5. Chronic liver disease. 6. Dyslipidemia. PAST SURGICAL HISTORY: Significant for: 1. Cardiac catheterization. 2. Placement of two stents for peripheral vascular disease. 3. Amputation of right second toe. SOCIAL HISTORY: The patient lives in a house. No history of tobacco, alcohol, or substance abuse. FAMILY HISTORY: Nil. ALLERGIES: NO KNOWN DRUG ALLERGIES. MEDICATIONS: Reviewed. PHYSICAL EXAMINATION: GENERAL: Reveals the patient is slightly obese built gentleman. He is alert, awake, and oriented, not in significant distress. When seen the patient was already placed on dialysis. VITAL SIGNS: Revealed a temperature of 97.5 degrees Fahrenheit, pulse rate of 73 per minute, respiratory rate 18 per minute, and blood pressure of 178/87 mmHg. HEENT: Unremarkable. NECK: Supple. No jugular venous distention. No thyromegaly. CHEST: Clear and good air entry bilaterally. CARDIOVASCULAR: Regular rate and rhythm. ABDOMEN: Nondistended. Nontender. No organomegaly. EXTREMITIES: The patient has left foot ulcer wrapped in a bandage. CENTRAL NERVOUS SYSTEM: Nonfocal. DIAGNOSTIC DATA: His hemogram revealed a white count of 5.61, hemoglobin 11.4, hematocrit 32.1, and platelet count of 119. His chemistry revealed serum sodium of 134, potassium of 4.4, chloride 96, bicarbonate 27, BUN 36, creatinine 8.78, and a glucose of 168. ASSESSMENT/PLAN: In summary, the patient is a 48-year-old gentleman: 1. Left foot cellulitis, possible osteomyelitis. 2. End-stage renal disease. 3. Type 2 diabetes, which is uncontrolled. 4. Anemia. 5. Hypertension. 6. Coronary artery disease. 7. Peripheral vascular disease. I had a detailed chat with Dr. Christiano Sun. We will: 1. Have the patient dialyze today, actually, the patient has been placed on dialysis and when examined, he was receiving dialysis with a potassium of 2.5 bath. He was tolerating dialysis very well. 2. We will have antibiotic therapy per Dr. Sun. 3. Blood sugar control. 4. Blood pressure control. 5. A decision has to be taken if surgical intervention will be necessary. Finally, we would like to thank you Dr. Christiano Sun for this opportunity to participate in the care of this gentleman and needless to say we will be very happy to follow this patient with you. Jayme Fox MD MA/DAVION /[id number]
[2019-06-25] MEDS: PIPERACILLIN/TAZO 2.25 GM 50 ML IV SCH ×2 (04:58→16:51)
[2019-06-25] MEDS: ALBUTEROL SULFATE HFA 8GM INHALATION AEROSOL INH SCH (06:53)
--- NOTE | 2019-06-25 07:20 | NUR ---
patient endorsed to next shift for continuity of care.
[2019-06-25] MEDS: INSULIN REGULAR, HUMAN 100 UNIT/1 ML 3ML VIAL SQ SCH ×4 (07:30→21:29)
[2019-06-25] MEDS ORDERED: LIDOCAINE HCL 2% JELLY 5 ML TUBE TOP ONE (08:30)
[2019-06-25] MEDS ORDERED: LIDOCAINE HCL 2% 30 ML TUBE TOP NR (08:30)
[2019-06-25] MEDS: BREO INH SCH (09:00)
[2019-06-25] MEDS: AMLODIPINE BESYLATE 10 MG TAB PO SCH (09:28)
[2019-06-25] MEDS: ASPIRIN 81 MG CHEW TAB PO SCH (09:28)
[2019-06-25] MEDS: CHOLECALCIFEROL 1,000 UNIT TAB PO SCH (09:28)
[2019-06-25] MEDS: FLUTICASONE PROPIONATE NASAL SPRAY NS SCH (09:28)
[2019-06-25] MEDS: FOLIC ACID/CYANOCOB/PYRIDOXINE TAB PO SCH (09:28)
[2019-06-25] MEDS: LORATADINE 10 MG TAB PO SCH (09:28)
[2019-06-25] MEDS: SEVELAMER CARBONATE 800 MG TAB PO SCH ×3 (09:28→16:51)
[2019-06-25] MEDS: PANTOPRAZOLE SOD 40 MG TABEC PO SCH (09:28)
--- NOTE | 2019-06-25 11:43 | Consultation ---
DATE OF CONSULTATION: 06/24/2019 REASON FOR CONSULTATION: Left foot wound. HISTORY OF PRESENT ILLNESS: This is a 48-year-old male with past medical history of type 2 diabetes, peripheral vascular disease, hypertension, coronary artery disease, chronic liver disease, dyslipidemia, who was admitted through the emergency room for a worsening infection to the left foot. The patient relates that he is from the [facility] and has recently returned to [place] and has not seen a coil winder repair for several months. He said, he noticed the left foot wound approximately one week ago, which started as a blister, which continued to get worse and he noticed an odor to it and was seen by Dr. Sun and was admitted for further management. He denies pain to it. Currently, he denies nausea, vomiting, fever, chills, chest pain, or shortness of breath. PAST MEDICAL HISTORY: 1. Type 2 diabetes. 2. Peripheral neuropathy. 3. Hypertension. 4. Vascular disease. 5. Coronary artery disease. PAST SURGICAL HISTORY: Stenting for peripheral vascular disease. Cardiac catheterization, left foot amputation of 2nd and 4th digits. SOCIAL HISTORY: The patient lives at home alone. Denies smoking, drinking, or any illicit drug usage. FAMILY HISTORY: Noncontributory. ALLERGIES: NO KNOWN DRUG ALLERGIES. MEDICATIONS: Per the chart. PHYSICAL EXAMINATION: GENERAL: Alert, oriented x3. No apparent distress. VITAL SIGNS: Temperature 97.3, heart rate 72, respiratory rate 18, blood pressure 156/80, pulse ox 98% on room air. PROBLEM FOCUSED LOWER EXTREMITY PHYSICAL EXAM: VASCULAR: Dorsalis pedis and posterior tibial pulses are nonpalpable. Capillary refill time is approximately 3 to 5 seconds to all digits. There is absent pedal hair. Negative erythema, edema, or warmth is noted to the periwound to the patient's left first metatarsal head. NEUROLOGICAL: Sensation is absent to light touch. 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 DERMATOLOGICAL: A deep ulceration is noted to the plantar aspect of the 1st metatarsal head with moderate amount of necrotic hyperkeratotic tissue to the periwound, does not probe deep to bone. The wound itself likely measure approximately 1.5 cm x 1.5 cm. No active drainage is noted at this time. LABORATORY DATA: White blood cell count is 5.6, hemoglobin 11.4, hematocrit 32.1, platelet count 119. Hemoglobin A1c is 5.7. Foot x-ray, no acute osseous findings. Foot MRI, abnormal soft tissue edema and skin blistering adjacent to 1st metatarsophalangeal joint medially with skin ulceration. No well-formed drainable fluid collection or abscess is seen. No underlying cortical destruction or focal bone marrow edema is seen to suggest osteomyelitis. ASSESSMENT: 1. Left foot chronic ulceration. 2. Type 2 diabetes with peripheral neuropathy. 3. Peripheral vascular disease. PLAN: The patient was seen and evaluated, discussed condition and treatment options with patient in detail. Discussed the patient at this time his MRI is negative for a deep bone infection. There is concern of peripheral vascular disease, and poor wound healing. We will recommend ordering arterial Dopplers and a vascular consultation to evaluate previous stents that were placed. We will recommend a bedside wound debridement to debride all hyperkeratotic and necrotic tissues of the periphery. At this time, a Betadine wet-to-dry dressing change was performed. We will plan on doing a bedside debridement tomorrow, 06/25/2019. The Podiatry Service will continue to monitor it as an inpatient. JUDAH Dan/DAVION /[id number]
[2019-06-25] MEDS ORDERED: LOSARTAN POTASSIUM 25 MG TAB PO SCH (13:45)
--- NOTE | 2019-06-25 15:39 | Operative Report ---
DATE OF PROCEDURE: 06/25/2019 SURGEON: Maximilian Abebe DPM PREOPERATIVE DIAGNOSIS: Left foot ulcer. POSTOPERATIVE DIAGNOSIS: Left foot ulcer. PLANNED PROCEDURE: Left debridement of subcutaneous tissue, left foot wound. ESTIMATED BLOOD LOSS: Less than 10 mL. MATERIALS: None. PROCEDURE NOTE: The patient was seen at the bedside and the correct procedure and site were identified. A surgical consent was signed and obtained. The wound was then scrubbed, prepped, and draped in the usual aseptic manner with Betadine. A 2% lidocaine jelly was applied for local anesthesia. Utilizing a #15 blade and a suture removal kit, the wound was debrided of all necrotic and devitalized tissue as well as hyperkeratotic tissue. Healthy bleeding granular tissue. The wound was debrided subcutaneously and excisionally to the left foot wound at the 1st metatarsal head. It was then dressed in a Betadine wet-to-dry fashion with 4x4s, Kerlix, and an Dylan wrap. The patient tolerated the procedure and anesthesia well. We will continue the Podiatry Service. We will continue to monitor as an inpatient. JUDAH Dan/MODL /[id number]
--- NOTE | 2019-06-25 16:34 | Progress Note ---
DATE: Internal Medicine Progress Note SUBJECTIVE: The patient is doing well. No significant complaint. PHYSICAL EXAMINATION: VITAL SIGNS: Blood pressure 169/87, temperature 97.8, heart rate 73 per minute, respiratory rate is 16 per minute, O2 saturation 95%. EXTREMITIES: The extremity showed left food wound. LABORATORY DATA: On the BMP; sodium 134, potassium 4.4, chloride 96, CO2 of 27, BUN 36, creatinine 8.78, glucose 168. On the CBC; white blood count 5.61, hemoglobin 11.4, hematocrit 32.1, platelet count 118,000. AST 24, ALT 16, total bilirubin 0.8, alkaline phosphatase 160. FINAL IMPRESSION: 1. Left foot wound infection. 2. Uncontrolled diabetes mellitus type 2 with diabetic nephropathy. 3. End-stage renal disease on dialysis. 4. Anemia of chronic disease secondary to end-stage renal disease. 5. Hypertension with hypertensive nephropathy. 6. Peripheral vascular disease. PLAN OF TREATMENT: Continue wound care. Continue Flonase daily. Continue Zosyn q.12 hours, Zofran 4 mg IV q.4 hours as needed, aspirin 81 mg daily, Claritin 10 mg daily, albuterol daily, D50 IV push as needed for hypoglycemia, calcium carbonate 500 mg at bedtime, sevelamer 800 mg three times a day. Continue monitoring blood sugar before meals and at bedtime, continue diabetic and renal diet, continue Protonix 40 mg daily, continue vitamin D 5000 units daily, amlodipine 10 mg daily, Pepcid 20 mg daily, folic acid combined with cyanocobalamin and pyridoxine one tablet daily. MD NOA Serna/DAVION /[id number]
[2019-06-25] MEDS: OYST-CAL-D 500MG TABLET PO SCH (16:51)
[2019-06-25] MEDS ORDERED: LOPERAMIDE HCL 2 MG CAP PO PRN (18:15)
[2019-06-25] MEDS: KETOROLAC TROMETHAMINE 30 MG/ML VIAL IV PRN (18:45)
[2019-06-25] MEDS: FAMOTIDINE 20 MG TAB PO SCH (20:57)
[2019-06-26] VITALS (8 sets, daily range): BP systolic 144–171; BP diastolic 81–93
[2019-06-26] MEDS: PIPERACILLIN/TAZO 2.25 GM 50 ML IV SCH ×2 (04:02→17:01)
[2019-06-26] MEDS: ALBUTEROL SULFATE HFA 8GM INHALATION AEROSOL INH SCH (06:41)
[2019-06-26] MEDS: KETOROLAC TROMETHAMINE 30 MG/ML VIAL IV PRN (07:05)
[2019-06-26] MEDS: INSULIN REGULAR, HUMAN 100 UNIT/1 ML 3ML VIAL SQ SCH ×4 (07:30→21:15)
[2019-06-26] MEDS: ASPIRIN 81 MG CHEW TAB PO SCH (08:45)
[2019-06-26] MEDS: FOLIC ACID/CYANOCOB/PYRIDOXINE TAB PO SCH (08:45)
[2019-06-26] MEDS: AMLODIPINE BESYLATE 10 MG TAB PO SCH (08:45)
[2019-06-26] MEDS: SEVELAMER CARBONATE 800 MG TAB PO SCH ×3 (08:45→17:01)
[2019-06-26] MEDS: LORATADINE 10 MG TAB PO SCH (08:45)
[2019-06-26] MEDS: PANTOPRAZOLE SOD 40 MG TABEC PO SCH (08:45)
[2019-06-26] MEDS: CHOLECALCIFEROL 1,000 UNIT TAB PO SCH (08:45)
[2019-06-26] MEDS: FLUTICASONE PROPIONATE NASAL SPRAY NS SCH (08:45)
[2019-06-26] MEDS ORDERED: TELMISARTAN 40 MG TAB PO SCH (09:00)
[2019-06-26] MEDS: BREO INH SCH (09:00)
--- NOTE | 2019-06-26 10:12 | Progress Note ---
DATE: 06/26/2019 SUBJECTIVE: This is a 48-year-old male with past medical history of type 2 diabetes, peripheral vascular disease, hypertension, coronary artery disease, who is seen at bedside today, who is status post debridement of the left foot. The patient currently relates no pain. Denies nausea, vomiting, fever, chills, chest pain, or shortness of breath. No acute issues overnight. OBJECTIVE: VITAL SIGNS: Today, temperature 96.4, heart rate 73, respiratory rate 18, blood pressure 171/93, and pulse ox 95% on room air. PROBLEM FOCUSED LOWER EXTREMITY PHYSICAL EXAMINATION: VASCULAR: Dorsalis pedis and posterior tibial pulses are nonpalpable. Capillary refill time approximately 3 to 5 seconds in all digits. There is absent pedal hair. Negative erythema, edema, or warmth is noted to the periwound to the patient's left 1st metatarsal head. NEUROLOGICAL: Sensation is absent to light touch. 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 DERMATOLOGICAL: Improvement of the ulceration to plantar aspect of the 1st metatarsal head. Significant reduction in necrotic tissue as well as hyperkeratotic tissue. The wound itself measurements are improving with more granulation tissue. No active drainage is noted at this time. LABORATORY DATA: No new labs today. IMAGING: Arterial Dopplers were performed, report is not yet available. ASSESSMENT: 1. Left foot chronic ulceration, improving. 2. Type 2 diabetes, peripheral neuropathy. 3. Peripheral vascular disease. PLAN: The patient was seen and evaluated. Discussed condition and treatment options with the patient in detail. Discussed with the patient at this time, MRI is negative for a bone infection. Arterial Dopplers were performed yesterday, report is not available; depending on results, we will recommend a Cardiology consultation to determine if intervention is necessary. The wound displays improvement after debridement yesterday. We will continue Betadine wet-to-dry dressing changes. The patient is stable to be discharged from the podiatry standpoint on p.o. antibiotics per the wound culture. The Podiatry Service will continue to monitor as inpatient. JUDAH Dan/DAVION /[id number]
[2019-06-26] MEDS ORDERED: FENTANYL 25 MCG/HR PATCH TOP SCH (11:45)
[2019-06-26] MEDS ORDERED: HYDRALAZINE HCL 20 MG/ML VIAL IV PRN (11:45)
--- NOTE | 2019-06-26 12:43 | Progress Note ---
DATE: Internal Medicine Progress Note SUBJECTIVE: He is complaining of right foot pain, but he is allergic to a long list of pain medications, so we tried Toradol since he is on dialysis anyway. We are going to put him on Duragesic patch because he still complaining of pain. He is allergic to Tylenol. He is allergic to hydrocodone. He is allergic to morphine. Tylenol 3, so pretty much, not much is left. PHYSICAL EXAMINATION: VITAL SIGNS: Blood pressure 171/93, temperature 36.4, heart rate 73 per minute, respiratory rate 18 per minute, oxygen saturation 95%. EXTREMITIES: He had a left foot plantar wound, covered by dressing. No evidence of edema. LABORATORY DATA: On the BMP; sodium 134, potassium 4.4, chloride 96, CO2 27, BUN 36, creatinine 8.78, glucose 168. On CBC; white blood count 5.61, hemoglobin 11.4, hematocrit 32.1, platelet count 118,000. AST 24, ALT 16, total bilirubin 0.8, alkaline phosphatase 160. IMPRESSION: 1. Left foot wound with osteomyelitis. 2. Uncontrolled diabetes mellitus type 2 with end-stage renal disease. 3. End-stage renal disease on dialysis. 4. Anemia of chronic disease. 5. Hypertension with end-stage renal disease. 6. Peripheral vascular disease. PLAN OF TREATMENT: Flonase 1 inhalation daily. Continue Zosyn q.12 hours twice a day. Continue Zofran 4 mg q.4 hours as needed for nausea and vomiting, aspirin 81 mg daily, Claritin 10 mg daily, albuterol daily, calcium carbonate 500 mg at bedtime, sevelamer 800 mg three times a day, Micardis 40 mg daily. Continue monitoring blood sugar before meals and at bedtime. Continue diabetic renal diet. Continue Protonix 40 mg daily. Continue vitamin D 1000 units daily, ketorolac 10 mg IV q.8 hours as needed for pain, amlodipine 10 mg daily, Pepcid 20 mg daily, folic acid, cyanocobalamin, pyridoxine, multivitamin tablet one tablet daily, loperamide 2 mg as needed for diarrhea. We are going to start him on a trial of Duragesic patch 24 mcg q.72 hours to relieve the pain. Given his allergies, we are very limited in what we can give the patient. MD NOA Serna/DAVION /[id number]
--- NOTE | 2019-06-26 14:30 | NUR ---
Notified Jonathan that patient needs dialysis tomorrow 06/27/19, orders in the chart
[2019-06-26] MEDS: TELMISARTAN 40 MG TAB PO SCH (17:01)
[2019-06-26] MEDS: FAMOTIDINE 20 MG TAB PO SCH (20:41)
[2019-06-26] MEDS: OYST-CAL-D 500MG TABLET PO SCH (20:41)
[2019-06-27] VITALS (9 sets, daily range): BP systolic 155–183; BP diastolic 68–97
[2019-06-27] MEDS: PIPERACILLIN/TAZO 2.25 GM 50 ML IV SCH (05:12)
[2019-06-27 05:32] LABS: BASOPHILS # (AUTO) 0.1 (0.0-0.1); BASOPHILS % 0.9 % (0.0-1.0); EOSINOPHILS # (AUTO) 0.3 (0.0-0.4); EOSINOPHILS % 5.5 % (0.0-6.0); HEMOGLOBIN 10.5 g/dL (14.0-18.0); LYMPHOCYTES # (AUTO) 1.3 (1.0-3.2); MEAN CORPUSCULAR HEMOGLOBIN 33.2 pg (28-32); MEAN CORPUSCULAR VOLUME 94.9 fL (81-99); MONOCYTES # (AUTO) 0.4 (0.2-0.8); MONOCYTES % 6.5 % (4.4-11.3); NEUTROPHILS # (AUTO) 3.6 (2.1-6.9); NEUTROPHILS % 63.2 % (38.7-80.0); PLATELET COUNT 110 x10e3/uL (140-360); RED BLOOD COUNT 3.16 x10e6/uL (4.3-5.7); RED CELL DISTRIBUTION WIDTH 12.7 % (11.7-14.4)
[2019-06-27 05:45] LABS: POTASSIUM 4.8 mmol/L (3.5-5.1)
[2019-06-27 05:46] LABS: ANION GAP 18.8 mmol/L (8-16); CALCIUM 7.9 mg/dL (8.4-10.2); CREATININE, SERUM 12.07 mg/dL (0.72-1.25); PHOSPHORUS 6.7 MG/DL (2.3-4.7)
--- NOTE | 2019-06-27 06:39 | NUR ---
completed dressing change to left foot. patient tolerated well
[2019-06-27] MEDS: ALBUTEROL SULFATE HFA 8GM INHALATION AEROSOL INH SCH (07:18)
[2019-06-27] MEDS: INSULIN REGULAR, HUMAN 100 UNIT/1 ML 3ML VIAL SQ SCH ×4 (07:30→20:54)
[2019-06-27] MEDS: AMLODIPINE BESYLATE 10 MG TAB PO SCH (08:27)
[2019-06-27] MEDS: CHOLECALCIFEROL 1,000 UNIT TAB PO SCH (08:27)
[2019-06-27] MEDS: TELMISARTAN 40 MG TAB PO SCH ×2 (08:27→16:39)
[2019-06-27] MEDS: PANTOPRAZOLE SOD 40 MG TABEC PO SCH (08:27)
[2019-06-27] MEDS: FOLIC ACID/CYANOCOB/PYRIDOXINE TAB PO SCH (08:27)
[2019-06-27] MEDS: FLUTICASONE PROPIONATE NASAL SPRAY NS SCH (08:28)
[2019-06-27] MEDS: ASPIRIN 81 MG CHEW TAB PO SCH (08:28)
[2019-06-27] MEDS: LORATADINE 10 MG TAB PO SCH (08:28)
[2019-06-27] MEDS: SEVELAMER CARBONATE 800 MG TAB PO SCH ×3 (08:28→16:39)
[2019-06-27] MEDS: BREO INH SCH (09:00)
--- NOTE | 2019-06-27 10:19 | NUR ---
Received LTAC order. Spoke to pt at bedside. States he wants to go to a facility around this area. Choice letter signed for [facility]. 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 [facility] [address] [place] [address]
[2019-06-27] MEDS ORDERED: SODIUM CHLORIDE 0.9% 1000ML 2,000 ML ONE (10:30)
[2019-06-27 11:19] LABS: MAGNESIUM 2.3 MG/DL (1.3-2.1)
--- NOTE | 2019-06-27 11:22 | NUR ---
EDUCATED ABOUT IMM, SIGNED, FILED IN CHART, WITH COPY LEFT WITH FAMILY AT BEDSIDE.
[2019-06-27] MEDS ORDERED: LEVOFLOXACIN 500MG/D5W 100ML 100 ML IV SCH (14:00)
--- NOTE | 2019-06-27 16:00 | NUR ---
Received MOT from [facility] [address] [place] [address] Rm [id number] after 7pm Daniel Richards, PRODUCT MANAGEMENT ANALYST Dr. Sun to attend MOT was completed and placed with pt's packet at nurse's station. AKILA Islas was informed.
[2019-06-27] MEDS ORDERED: MEROPENEM 1GM 100 ML IV SCH (17:00)
--- NOTE | 2019-06-27 18:08 | NUR ---
per dialysis nurse, 2.8L removed.
--- NOTE | 2019-06-27 19:15 | NUR ---
Patient received lying in bed. AAO x 4. Patient had no complaints of pain. Respirations even and non-labored. Dressing to left foot reinforced. Fall precautions implemented. Patient instructed to call for assistance when needed. Call light within reach.
--- NOTE | 2019-06-27 19:45 | NUR ---
Report given to Skyla FloresRN) at [facility] regarding patient's status.
[2019-06-27] MEDS: FAMOTIDINE 20 MG TAB PO SCH (20:26)
[2019-06-27] MEDS: OYST-CAL-D 500MG TABLET PO SCH (20:26)
[2019-06-27] MEDS: KETOROLAC TROMETHAMINE 30 MG/ML VIAL IV PRN (20:40)
--- NOTE | 2019-06-27 21:45 | NUR ---
Patient transported to [facility] via stretcher by EMS. IV to left forearm patent. Patient in stable condition.
== END 2019-06-27 21:46 | DRG 623 ==
LOC: ER 13:40 → ERHOLD 16:38 → MED/SURG2 19:33
PROC: 5A1D70Z Performance of Urinary Filtration, Intermittent, Less than 6 Hours Per Day (ICD-10-PCS; 2019-06-24)
PROC: 0JBR0ZZ Excision of Left Foot Subcutaneous Tissue and Fascia, Open Approach (ICD-10-PCS; 2019-06-25)
PROC: 5A1D70Z Performance of Urinary Filtration, Intermittent, Less than 6 Hours Per Day (ICD-10-PCS; principal; 2019-06-27)
DX: E11.69 Type 2 diabetes mellitus with other specified complication (principal); L03.116 Cellulitis of left lower limb; M86.8X7 Other osteomyelitis, ankle and foot; I12.0 Hypertensive chronic kidney disease with stage 5 chronic kidney disease or end stage renal disease; N18.6 End stage renal disease; Z79.4 Long term (current) use of insulin; E11.65 Type 2 diabetes mellitus with hyperglycemia; E11.22 Type 2 diabetes mellitus with diabetic chronic kidney disease; Z99.2 Dependence on renal dialysis; D63.1 Anemia in chronic kidney disease; E11.51 Type 2 diabetes mellitus with diabetic peripheral angiopathy without gangrene; I25.10 Atherosclerotic heart disease of native coronary artery without angina pectoris; K76.9 Liver disease, unspecified; E78.5 Hyperlipidemia, unspecified
CPT/HCPCS: 36415; 71045; 80048; 80053; 82550; 82553; 82948; 83036; 83605; 83735; 83880; 84100; 84484; 85025; 86704; 86706; 86707; 87040; 87071; 87086; 87186; 87205; 87340; 87350; 90962; 93005; 93925; 94664; 99284; J0360; J1817; J1885; J1956; J2185; J2405; J2543; J3370; J7030

== ENCOUNTER 2019-09-07 16:07 | Emergency (ER) | payer MEDICARE, OTHER ==
[~2019-09-07] VITALS: Ht 170.2 cm; Wt 115.7 kg
[~2019-09-07 16:07] MED LIST: AMLODIPINE BESY10 MG PO; ASPIR 8181 MG PO; B COMPLEX-FOLI1 EACH PO; BREO INH; CALCIUM CARBON500 MG PO; CHOLECALCIFEROL1 GM PO; FAMOTIDINE20 MG PO; FLONASE INH; FLUTICASONE PRO16 GM; LEVOCETIRIZINE D5 MG PO; LORATADINE10 MG PO; NEXIUM40 MG PO; RENAGEL800 MG PO; VENTOLIN HFA18 GM INH
[2019-09-07 17:03] LABS: BASOPHILS # (AUTO) 0.1 (0.0-0.1); EOSINOPHILS # (AUTO) 0.3 (0.0-0.4); EOSINOPHILS % 5.5 % (0.0-6.0); HEMATOCRIT 29.9 % (38.2-49.6); HEMOGLOBIN 10.4 g/dL (14.0-18.0); LYMPHOCYTES # (AUTO) 0.9 (1.0-3.2); LYMPHOCYTES % 18.2 % (18.0-39.1); MEAN CORPUSCULAR HEMOGLOBIN 33.3 pg (28-32); MEAN CORPUSCULAR HGB CONC 34.8 g/dL (31-35); MEAN CORPUSCULAR VOLUME 95.8 fL (81-99); MONOCYTES # (AUTO) 0.4 (0.2-0.8); MONOCYTES % 6.9 % (4.4-11.3); NEUTROPHILS # (AUTO) 3.5 (2.1-6.9); NEUTROPHILS % 68.2 % (38.7-80.0); PLATELET COUNT 94 x10e3/uL (140-360); RED BLOOD COUNT 3.12 x10e6/uL (4.3-5.7); RED CELL DISTRIBUTION WIDTH 13.5 % (11.7-14.4)
--- NOTE | 2019-09-07 17:10 | Diagnostic Imaging Report ---
EXAMINATION: CHEST 2 VIEWS INDICATION: Cough COMPARISON: Chest radiograph of 06/23/2019 FINDINGS: LINES/TUBES:None LUNGS:The lungs are well-inflated. No focal consolidation or pulmonary edema. PLEURA:No pleural effusion or pneumothorax. MEDIASTINUM:The cardiomediastinal silhouette appears normal in size and shape. BONES/SOFT TISSUES:No acute osseous injury. ABDOMEN:No free air under the diaphragm. IMPRESSION: No focal pneumonia or pulmonary edema. Signed by: Mine Glass MD on 09/07/2019 5:07 PM
[2019-09-07 17:12] LABS: INR 1.07; PROTHROMBIN TIME 14.4 seconds (11.9-14.5)
[2019-09-07 17:13] LABS: PARTIAL THROMBOPLASTIN TIME 44.5 seconds (23.8-35.5)
[2019-09-07 17:21] LABS: ALBUMIN 3.4 g/dL (3.5-5.0); ALBUMIN/GLOBULIN RATIO 0.8 (0.8-2.0); CALCIUM 9.2 mg/dL (8.4-10.2); CREATININE, SERUM 6.32 mg/dL (0.72-1.25); MAGNESIUM 2.1 MG/DL (1.3-2.1)
[2019-09-07 17:29] LABS: CREATINE KINASE MB 2.1 ng/mL (0-5.0)
[2019-09-07] MEDS ORDERED: PREDNISONE20 MG PO (18:05)
[2019-09-07] MEDS ORDERED: PREDNISONE 20 MG TAB PO ONE (18:15)
[2019-09-07 18:21] VITALS: BP 157/70
== END 2019-09-07 18:23 | disposition home or self-care (01) ==
LOC: ER 16:07
DX: R06.09 Other forms of dyspnea (principal); H11.32 Conjunctival hemorrhage, left eye; I12.0 Hypertensive chronic kidney disease with stage 5 chronic kidney disease or end stage renal disease; E11.22 Type 2 diabetes mellitus with diabetic chronic kidney disease; N18.6 End stage renal disease; Z99.2 Dependence on renal dialysis; I25.10 Atherosclerotic heart disease of native coronary artery without angina pectoris; K76.9 Liver disease, unspecified
CPT/HCPCS: 36415; 71046; 80053; 82550; 82553; 83735; 83880; 84484; 85025; 85610; 85730; 93005; 99284; J7512

== ENCOUNTER 2020-05-11 10:58 | Inpatient (IN) | payer MEDICARE, OTHER ==
[~2020-05-11] VITALS: Ht 170.2 cm; Wt 115.7 kg
[~2020-05-11 10:58] MED LIST changes: +PREDNISONE20 MG PO
--- NOTE | 2020-05-11 11:35 | Emergency Department Note ---
History of Present Illnes History of Present Illness Chief Complaint: Abdominal Complaints History of Present Illness This is a 49 year old male presented to ed via ems reported ams diarrhea and pt has missed dialysis recently - pt crying in pain - pt only response to name lethargic PER EMS, PATIENT IN WITH ALTERED MENTAL STATUS, DIARRHEA. 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 Arrival Mode: [place] Onset (how long ago): day(s) Onset quality: gradual Duration (how long): day(s) Timing of current episode: constant Progression: unchanged Context: Denies recent illness, Denies recent surgery, Denies recent immobilization, Denies recent travel, Denies trauma/injury, Denies new m edications, Denies hx of DVT/PE, Denies non-compliance w/ medications, Denies other Relieving factors: none Exacerbating factors: none Associated symptoms: Denies denies other symptoms, Denies confusion, Denies chest pain, Denies cough, Denies diaphoresis, Denies fever/chills, Denies headaches, Denies loss of appetite, Denies malaise, Denies nausea/vomiting, Denies rash, Denies seizure, Denies shortness of breath, Denies syncope, Denies weakness, Denies other Past Medical/Family History Physician Review I have reviewed the patient's past medical and family history. Any updates have been documented here. Past Medical History Recent Fever: No Clinical Suspicion of Infectio: No New/Unexplained Change in Ment: Yes Past Medical History: Hypertension, Diabetes, Asthma, CAD, Liver Disease, ESRD, Hemodyalisis, Hyperlipedemia, Chronic Kidney Disease, Chronic Back Pain Other Medical History: LIVER CIRROHSIS ENLARGED HEART CHRONIC RIGHT RIB PAIN DUE TO TRAUMA PERICARDIAL TAMPONADE M/W/F DIALYSIS Other Surgery: HEART CATH 03/27, NO STENTS AMPUTATION TO RIGHT 2ND TOE, 4TH TOE CARDIAC WINDOW AV FISTULA RT FA Social History Smoking Cessation: Never Smoker Alcohol Use: None Any Illegal Drug Use: No TB Exposure/Symptoms: No Physically hurt or threatened: No Family History Family history of heart diseas: No Other Last Tetanus: UTD Any Pre-Existing Lines (PICC,: No Review of Systems ROS Narrative Unable to obtain ROS: Unable to obtain due to (pt lethargic ) Review of Systems Constitutional: Denies fever Respiratory: Denies snoring, Denies stridor, Denies wheezing Musculoskeletal: Reports other (c/o pain all over) Physical Exam Related Data Allergies: Coded Allergies: morphine (Verified Adverse Reaction, Mild, "LOSE MY MIND", 11/22/19) hydrocodone (Verified Adverse Reaction, Unknown, NAUSEA, 11/22/19) Triage Vital Signs Vital Signs Date Time Temp Pulse Resp B/P (MAP) Pulse Ox O2 Delivery O2 Flow Rate FiO2 05/11/20 11:00 98.8 82 26 157/64 98 Room Air Vital signs reviewed: Yes Physical Exam CONSTITUTIONAL Constitutional: Present obese HENT HENT: Present normocephalic HENT L/R: Present left ext ear normal, Present right ext ear normal EYES Eyes: Reports PERRL, Reports conjunctivae normal NECK Neck: Present ROM normal PULMONARY Pulmonary: Present effort normal, Present breath sounds normal CARDIOVASCULAR Cardiovascular: Present regular rhythm, Present heart sounds normal, Present capillary refill normal, Present normal rate GASTROINTESTINAL Abdominal: Present soft, Present nontender, Present bowel sounds normal, Present other (noted pt has diarrhea) GENITOURINARY Genitourinary: Present exam deferred SKIN Skin: Present warm, Present dry MUSCULOSKELETAL NEUROLOGICAL Neurological: Present other (lethargic) PSYCHOLOGICAL Results Laboratory Laboratory Laboratory Tests Test 05/11/20 12:41 05/11/20 12:04 White Blood Count 6.19 x10e3/uL (4.8-10.8) Red Blood Count 3.15 x10e6/uL (4.3-5.7) Hemoglobin 10.2 g/dL (14.0-18.0) Hematocrit 31.2 % (38.2-49.6) Mean Corpuscular Volume 99.0 fL (81-99) Mean Corpuscular Hemoglobin 32.4 pg (28-32) Mean Corpuscular Hemoglobin Concent 32.7 g/dL (31-35) Red Cell Distribution Width 18.4 % (11.7-14.4) Platelet Count 90 x10e3/uL (140-360) Neutrophils (%) (Auto) 80.6 % (38.7-80.0) Lymphocytes (%) (Auto) 10.5 % (18.0-39.1) Monocytes (%) (Auto) 4.7 % (4.4-11.3) Eosinophils (%) (Auto) 3.4 % (0.0-6.0) Basophils (%) (Auto) 0.2 % (0.0-1.0) Neutrophils # (Auto) 5.0 (2.1-6.9) Lymphocytes # (Auto) 0.7 (1.0-3.2) Monocytes # (Auto) 0.3 (0.2-0.8) Eosinophils # (Auto) 0.2 (0.0-0.4) Basophils # (Auto) 0.0 (0.0-0.1) Absolute Immature Granulocyte (auto 0.04 x10e3/uL (0-0.1) Prothrombin Time 17.4 seconds (11.9-14.5) Prothromb Time International Ratio 1.33 Activated Partial Thromboplast Time 46.5 seconds (23.8-35.5) Sodium Level 142 mmol/L (136-145) Potassium Level 5.1 mmol/L (3.5-5.1) Chloride Level 100 mmol/L (98-107) Carbon Dioxide Level 22 mmol/L (22-29) Anion Gap 25.1 mmol/L (8-16) Blood Urea Nitrogen 76 mg/dL (7-26) Creatinine 18.22 mg/dL (0.72-1.25) Estimat Glomerular Filtration Rate 3 ML/MIN (60-) BUN/Creatinine Ratio 4 (6-25) Glucose Level 66 mg/dL (74-118) Calcium Level 7.5 mg/dL (8.4-10.2) Magnesium Level 2.2 MG/DL (1.3-2.1) Total Bilirubin 1.0 mg/dL (0.2-1.2) Aspartate Amino Transf (AST/SGOT) 298 IU/L (5-34) Alanine Aminotransferase (ALT/SGPT) 94 IU/L (0-55) Alkaline Phosphatase 153 IU/L (40-150) Ammonia 73 UG/DL (31-123) Creatine Kinase 406 IU/L (30-200) Creatine Kinase MB 2.60 ng/mL (0-5.0) Troponin I 0.646 ng/mL (0-0.300) B-Type Natriuretic Peptide 905.3 pg/mL (0-100) Total Protein 6.6 g/dL (6.5-8.1) Albumin 2.7 g/dL (3.5-5.0) Globulin 3.9 g/dL (2.3-3.5) Albumin/Globulin Ratio 0.7 (0.8-2.0) Amylase Level 61 U/L (25-125) Lipase 87 U/L (8-78) Thyroid Stimulating Hormone (TSH) 1.323 uIU/mL (0.350-4.940) Salicylates Level < 5.0 mg/dL (0-30) Acetaminophen Level < 3.0 ug/mL (10-30) Ethyl Alcohol Level < 10.0 mg/dL (0.0-10.0) Imaging Impressions ct abd IMPRESSION: 1. Multifocal groundglass consolidations in the lower lobes correspond to the abnormality seen on chest radiograph concerning for multifocal pneumonia, including viral pneumonia. Differential diagnosis includes aspiration pneumonitis. 2. Mild fat stranding surrounding the cecum is nonspecific and may reflect focal area of colitis. No bowel obstruction. Signed by: Dr. Ilana Skaggs M.D. on 05/11/2020 1:51 PM Dictated By: ILANA SKAGGS MD [id number] Transcribed By: ERUM on 05/11/20 135 cxr IMPRESSION: Bilateral interstitial edema with or without superimposed infection. Signed by: Dr. Ilana Skaggs M.D. on 05/11/2020 12:51 PM Dictated By: ILANA SKAGGS MD 1251 Transcribed By: ERUM on 05/11/20 1251 IMPRESSION: No acute intracranial abnormalities, particularly no hemorrhage or acute cortical infarcts. Signed by: Dr. Moose Francis M.D. on 05/11/2020 1:05 PM Dictated By: MOOSE FRANCIS MD 1305 Transcribed By: ERUM on 05/11/20 1305 COPY TO: CORWIN DICKERSON~ Procedures 12 Lead ECG Interpretation ECG Interpretation : ECG: ECG 1 Vp Lab: Interpreted by ED physician Date: May 11, 2020 Time: 11:09 Prior ECG tracings: reviewed Rhythm: sinus rhythm Rate: normal BPM: 78 QRS axis: left Conduction: 1st degree T wave inversion: aVR, V1, V2, V3, V4 Other findings: prolonged QTc interval Clinical Impression: abnormal ECG Assessment & Plan Medical Decision Making MDM 49y m presented to ed via ems from home ems reports pain has missed last dialysis non talkative crying w/ pain all over - lethargic - and is having diarrhea lab ekg cxt ct abd ct brain ordered Reassessment [place] [facility] [place]/ Dr [place] transfer Assessment & Plan Final Impression: (1) Diarrhea (2) Malaise and fatigue (3) Weakness (4) End stage renal disease on dialysis (5) Pneumonia Depart Disposition: TRANS [facility] Last Vital Signs Date Time Temp Pulse Resp B/P (MAP) Pulse Ox O2 Delivery O2 Flow Rate FiO2 05/11/20 11:00 98.8 82 26 157/64 98 Room Air Home Meds Active Scripts Prednisone (PREDNISONE) 20 Mg Tab, 60 MG PO DAILY for 4 Days, #12 TAB Prov:MEHDI DANIELS TRANSPLANT CASE MANAGER 09/07/19 Reported Medications Calcium Carbonate (CALCIUM CARBONATE) 500 Mg Tablet, 500 MG PO HS, TAB 06/23/19 Cyanocobalamin/Fa/Pyridoxine (B COMPLEX-FOLIC ACID TABLET) 1 Each Tablet, 1 EACH PO DAILY 06/23/19 Albuterol Sulfate (VENTOLIN HFA) 18 Gm Hfa.aer.ad, 90 MCG INH DAILY 06/23/19 Sevelamer Hcl (RENAGEL) 800 Mg Tablet, 800 MG PO TID, TAB 06/23/19 Loratadine (LORATADINE) 10 Mg Tablet, 10 MG PO DAILY, #30 TAB 06/23/19 Levocetirizine Dihydrochloride (LEVOCETIRIZINE DIHYDROCHLORIDE) 5 Mg Tablet, 5 MG PO DAILY 06/23/19 [Flonase] No Conflict Check, 50 MCG INH DAILY 06/23/19 Cholecalciferol (Vitamin D3) (CHOLECALCIFEROL) 1 Gm Crystals, 1 GM PO DAILY 06/23/19 Aspirin (ASPIR 81) 81 Mg Tablet.dr, 81 MG PO DAILY 06/23/19 Famotidine (FAMOTIDINE) 20 Mg Tab, 20 MG PO HS 06/23/19 Esomeprazole Magnesium (NEXIUM) 40 Mg Capsule.dr, 40 MG PO DAILY 06/23/19 [Breo] No Conflict Check, 1 INH INH DAILY 06/23/19 Amlodipine Besylate (AMLODIPINE BESYLATE) 10 Mg Tablet, 10 MG PO DAILY 06/23/19 CORWIN DICKERSON May 11, 2020 11:35
[2020-05-11] MEDS ORDERED: ONDANSETRON HCL INJ 2MG/ML 2ML 2 MG/ML VIAL IV STA (11:37)
[2020-05-11] MEDS ORDERED: FENTANYL CITRATE/PF 100MCG/2 ML INJ IV ONE (11:45)
[2020-05-11] MEDS ORDERED: ONDANSETRON HCL INJ 2MG/ML 2ML 2 MG/ML VIAL IV PRN (12:00)
[2020-05-11] MEDS ORDERED: ASPIRIN 81 MG CHEW TAB PO ONE (12:00)
[2020-05-11] MEDS ORDERED: SODIUM CHLORIDE 0.9% 1000ML 1,000 ML IV SCH (12:00)
[2020-05-11 12:54] LABS: BASOPHILS % 0.2 % (0.0-1.0); EOSINOPHILS # (AUTO) 0.2 (0.0-0.4); EOSINOPHILS % 3.4 % (0.0-6.0); HEMATOCRIT 31.2 % (38.2-49.6); HEMOGLOBIN 10.2 g/dL (14.0-18.0); LYMPHOCYTES # (AUTO) 0.7 (1.0-3.2); LYMPHOCYTES % 10.5 % (18.0-39.1); MEAN CORPUSCULAR HEMOGLOBIN 32.4 pg (28-32); MEAN CORPUSCULAR HGB CONC 32.7 g/dL (31-35); MONOCYTES # (AUTO) 0.3 (0.2-0.8); MONOCYTES % 4.7 % (4.4-11.3); NEUTROPHILS % 80.6 % (38.7-80.0); PLATELET COUNT 90 x10e3/uL (140-360); RED BLOOD COUNT 3.15 x10e6/uL (4.3-5.7); RED CELL DISTRIBUTION WIDTH 18.4 % (11.7-14.4)
--- NOTE | 2020-05-11 12:54 | Diagnostic Imaging Report ---
EXAMINATION: CHEST SINGLE (PORTABLE) INDICATION: ^Y ^ERMD ORDER ^[id number] ^1217 ^Y COMPARISON: Chest radiograph 11/22/2019 FINDINGS: AP view TUBES and LINES: None. LUNGS: Lungs are well inflated. Worsening bilateral reticular opacities. PLEURA: Blunting of the costophrenic angles may relate to trace effusion. No pneumothorax. HEART AND MEDIASTINUM: The cardiac silhouette is mildly enlarged but stable. BONES AND SOFT TISSUES: No acute osseous lesion. Soft tissues are unremarkable. UPPER ABDOMEN: No free air under the diaphragm. IMPRESSION: Bilateral interstitial edema with or without superimposed infection. Signed by: Dr. Mariya Akbar M.D. on 05/11/2020 12:51 PM
[2020-05-11] MEDS ORDERED: LEVOFLOXACIN 250MG/D5W 50ML 50 ML IV SCH (13:00)
--- NOTE | 2020-05-11 13:09 | Diagnostic Imaging Report ---
EXAMINATION: Head CT HISTORY: Altered mental status, nausea and vomiting, patient missed dialysis session. COMPARISON: None. TECHNIQUE: Helical axial images of the head were obtained. Reformatted coronal and sagittal images from the axial data. Dose modulation, iterative reconstruction, and/or weight based adjustment of the mA/kV was utilized to reduce the radiation dose to as low as reasonably achievable. Image quality: Motion/streaking artifact limits the evaluation of the skull base and posterior cranial fossa. FINDINGS: Parenchyma: 1. No abnormal densities. 2. No mass or hemorrhage. No CT evidence of acute territorial vascular insult. Extra-axial spaces:No abnormal density. No extra-axial fluid collections Brain volume: Normal for age. Ventricles: No hydrocephalus or displacement. Arteries: Prominent atherosclerotic calcification of the intra and extracranial vessels, likely related to end-stage renal disease. Dural sinuses: No abnormal density. Foramen magnum: No mass, Chiari malformation, or basilar invagination. Sella: No obvious mass. Paranasal/mastoid sinuses: Imaged portions unremarkable. Skull/Scalp: No lytic or blastic lesions. No fractures. IMPRESSION: No acute intracranial abnormalities, particularly no hemorrhage or acute cortical infarcts. Signed by: Dr. Mally Francis M.D. on 05/11/2020 1:05 PM
[2020-05-11 13:11] LABS: INR 1.33; PROTHROMBIN TIME 17.4 seconds (11.9-14.5)
[2020-05-11 13:12] LABS: PARTIAL THROMBOPLASTIN TIME 46.5 seconds (23.8-35.5)
[2020-05-11 13:18] LABS: ALANINE AMINOTRANSFERASE 94 IU/L (0-55); ALBUMIN 2.7 g/dL (3.5-5.0); ALBUMIN/GLOBULIN RATIO 0.7 (0.8-2.0); ALKALINE PHOSPHATASE 153 IU/L (40-150); AMYLASE 61 U/L (25-125); ANION GAP 25.1 mmol/L (8-16); BLOOD UREA NITROGEN 76 mg/dL (7-26); BUN/CREATININE RATIO 4 (6-25); CALCIUM 7.5 mg/dL (8.4-10.2); CARBON DIOXIDE 22 mmol/L (22-29); CHLORIDE 100 mmol/L (98-107); CREATINE KINASE 406 IU/L (30-200); CREATININE, SERUM 18.22 mg/dL (0.72-1.25); EST GLOMERULAR FILTRATION RATE 3 ML/MIN (60-); GLUCOSE 66 mg/dL (74-118); LIPASE 87 U/L (8-78); MAGNESIUM 2.2 MG/DL (1.3-2.1); POTASSIUM 5.1 mmol/L (3.5-5.1); SODIUM 142 mmol/L (136-145)
[2020-05-11 13:27] LABS: SALICYLATE < 5.0 mg/dL (0-30)
[2020-05-11 13:38] LABS: THYROID STIMULATING HORMONE 1.323 uIU/mL (0.350-4.940)
--- NOTE | 2020-05-11 13:54 | Diagnostic Imaging Report ---
EXAM: CT Abdomen and Pelvis WITHOUT contrast INDICATION: ^Y ^NO IV, NO ORAL ^[id number] ^1228 ^Y COMPARISON: Chest radiograph 05/11/2020 TECHNIQUE: Abdomen and pelvis were scanned utilizing a multidetector helical scanner from the lung base to the pubic symphysis without administration of IV contrast. Absence of intravenous contrast decreases sensitivity for detection of focal lesions and vascular pathology. Coronal and sagittal reformations were obtained. Routine protocol was performed. IV CONTRAST: None. ORAL CONTRAST: Water RADIATION DOSE: Total DLP: 812.1 mGy*cm Estimated effective dose: (DLP x 0.015 x size factor) mSv COMPLICATIONS: None FINDINGS: LINES and TUBES: None. LOWER THORAX: Multifocal peripheral groundglass consolidations correlate with the abnormality seen on chest radiograph. Coronary artery calcifications. HEPATOBILIARY: No focal hepatic lesions. No biliary ductal dilation. GALLBLADDER: No radio-opaque stones or sludge. No wall thickening. SPLEEN: No splenomegaly. PANCREAS: No focal masses or ductal dilatation. ADRENALS: No adrenal nodules KIDNEYS/URETERS: No hydronephrosis. No cystic or solid mass lesions. Diffuse vascular calcifications in both kidneys without suggestion of calcified stones. GI TRACT: No abnormal distention, wall thickening, or evidence of bowel obstruction. Mild fat stranding surrounding the cecum in the right lower quadrant on series 2, image 63. Appendix is normal. PELVIC ORGANS/BLADDER: Unremarkable. LYMPH NODES: No lymphadenopathy. VESSELS: Unremarkable. PERITONEUM / RETROPERITONEUM: No free air. Small ascites in the perihepatic and perisplenic regions. BONES: Unremarkable. SOFT TISSUES: White neck fat-containing small supraumbilical hernia with a neck measuring 4.9 cm. There is an additional tiny supraumbilical hernia measuring 1.2 cm. IMPRESSION: 1. Multifocal groundglass consolidations in the lower lobes correspond to the abnormality seen on chest radiograph concerning for multifocal pneumonia, including viral pneumonia. Differential diagnosis includes aspiration pneumonitis. 2. Mild fat stranding surrounding the cecum is nonspecific and may reflect focal area of colitis. No bowel obstruction. Signed by: Dr. Mariya Akbar M.D. on 05/11/2020 1:51 PM
[2020-05-11] MEDS ORDERED: FENTANYL CITRATE/PF 100MCG/2 ML INJ IV PRN (14:00)
[2020-05-11] MEDS ORDERED: METRONIDAZOLE 500MG/NS 100ML 100 ML IV ONE (15:00)
[2020-05-11] MEDS ORDERED: DEXTROSE 50% SYRINGE 50 ML IV ONE ×2 (15:45→18:53)
[2020-05-11] MEDS ORDERED: LEVOFLOXACIN 500MG/D5W 100ML 100 ML IV ONE (16:00)
[2020-05-11] MEDS ORDERED: DEXAMETHASONE SOD PHOS 10 MG/1 ML VIAL IV ONE (17:00)
[2020-05-11] MEDS ORDERED: DEXTROSE 50% SYRINGE 50 ML IV STA (19:10)
[2020-05-11 19:20] VITALS: BP 150/75
[2020-05-11 19:40] LABS: CREATINE KINASE MB 2.6 ng/mL (0-5.0)
[2020-05-11] MEDS ORDERED: METRONIDAZOLE 500MG/NS 100ML 100 ML IV SCH (21:00)
[2020-05-13] MEDS ORDERED: LEVOFLOXACIN 250MG/D5W 50ML 50 ML IV SCH (10:00)
== END 2020-05-11 19:10 | disposition short-term general hospital (02) | DRG 177 ==
LOC: ER 11:20 → ERHOLD 11:46
PROVIDERS: ADMIT Internal Medicine; ATTEND Internal Medicine
DX: U07.1 COVID-19 (principal); J12.89 Other viral pneumonia; N18.6 End stage renal disease; I12.0 Hypertensive chronic kidney disease with stage 5 chronic kidney disease or end stage renal disease; E11.22 Type 2 diabetes mellitus with diabetic chronic kidney disease; Z99.2 Dependence on renal dialysis; Z91.15 Patient's noncompliance with renal dialysis
CPT/HCPCS: 36415; 70450; 71045; 74176; 80053; 80320; 80329; 82140; 82150; 82550; 82553; 82948; 83690; 83735; 83880; 84443; 84484; 85025; 85610; 85730; 87040; 87071; 87205; 87635; 93005; 99285; J1100; J1956; J2405; J3010; J7799

== ENCOUNTER 2020-06-10 21:31 | Emergency (ER) | payer MEDICARE, OTHER ==
[~2020-06-10] VITALS: Ht 170.2 cm; Wt 115.7 kg
--- NOTE | 2020-06-10 22:39 | Emergency Department Note ---
History of Present Illnes History of Present Illness Chief Complaint: Back Pain History of Present Illness This is a 49 year old male arrived to the ED with with complaints of left leg swelling. Pt also complaining of pain over his tail bone which he has had since 1988 when he fell in the " position". Patient admits to being covid + Historian: Patient Arrival Mode: Car Severity: mild Duration (how long): week(s) Progression: unchanged Associated symptoms: Reports denies other symptoms, Reports fever/chills Past Medical/Family History Physician Review I have reviewed the patient's past medical and family history. Any updates have been documented here. Past Medical History Recent Fever: No Clinical Suspicion of Infectio: Yes New/Unexplained Change in Ment: No Past Medical History: Hypertension, Diabetes, Asthma, CAD, Liver Disease, ESRD, Hemodyalisis, Hyperlipedemia, Chronic Kidney Disease, Chronic Back Pain Other Medical History: LIVER CIRROHSIS ENLARGED HEART CHRONIC RIGHT RIB PAIN DUE TO TRAUMA PERICARDIAL TAMPONADE M/W/F DIALYSIS Other Surgery: HEART CATH 03/27, NO STENTS AMPUTATION TO RIGHT 2ND TOE, 4TH TOE CARDIAC WINDOW AV FISTULA RT FA Social History Physically hurt or threatened: No Other Last Tetanus: UTD Review of Systems Review of Systems Constitutional: Reports no symptoms EENTM: Reports no symptoms Cardiovascular: Reports no symptoms Respiratory: Reports no symptoms Gastrointestinal: Reports no symptoms Genitourinary: Reports no symptoms Musculoskeletal: Reports as per HPI Integumentary: Reports no symptoms Neurological: Reports no symptoms Psychological: Reports no symptoms Endocrine: Reports no symptoms Hematological/Lymphatic: Reports no symptoms Physical Exam Related Data Allergies: Coded Allergies: morphine (Verified Adverse Reaction, Mild, "LOSE MY MIND", 11/22/19) hydrocodone (Verified Adverse Reaction, Unknown, NAUSEA, 11/22/19) Triage Vital Signs Vital Signs Date Time Temp Pulse Resp B/P (MAP) Pulse Ox O2 Delivery O2 Flow Rate FiO2 06/10/20 21:51 98.8 92 18 167/74 100 Room Air Vital signs reviewed: Yes Physical Exam CONSTITUTIONAL Constitutional: Present well-developed, Present well-nourished HENT HENT: Present normocephalic, Present atraumatic, Present oropharynx clear/moist, Present nose normal HENT L/R: Present left ext ear normal, Present right ext ear normal EYES Eyes: Reports PERRL, Reports conjunctivae normal NECK Neck: Present ROM normal PULMONARY Pulmonary: Present effort normal, Present breath sounds normal CARDIOVASCULAR Cardiovascular: Present regular rhythm, Present heart sounds normal, Present capillary refill normal, Present normal rate GASTROINTESTINAL Abdominal: Present soft, Present nontender, Present bowel sounds normal GENITOURINARY Genitourinary: Present exam deferred SKIN Skin: Present warm, Present dry MUSCULOSKELETAL Musculoskeletal: Present tenderness, Present swelling, Present other (unilateral left lower extremity swelling noted, compartments otherwise soft, normal DP/PT pulses) NEUROLOGICAL Neurological: Present alert, Present oriented x 3, Present no gross motor or sensory deficits PSYCHOLOGICAL Psychological: Present mood/affect normal, Present judgement normal Results Imaging Imaging results reviewed: Yes Assessment & Plan Medical Decision Making MDM 49-year-old male arrives to the ED with left lower extremity swelling and pain. Imaging an x-ray unremarkable. Patient instructed to follow with outpatient PCP. Spoke to patient length of all findings and importance of outpatient follow-up. Patient did request Dilaudid multiple times in the emergency department for pain control. Offered alternate means of pain control which patient refused. 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 [employer] 09/07/19 Reported Medications Calcium Carbonate (CALCIUM CARBONATE) 500 Mg Tablet, 500 MG PO HS, TAB 06/23/19 Cyanocobalamin/Fa/Pyridoxine (B COMPLEX-FOLIC ACID TABLET) 1 Each Tablet, 1 EACH PO DAILY 06/23/19 Albuterol Sulfate (VENTOLIN HFA) 18 Gm Hfa.aer.ad, 90 MCG INH DAILY 06/23/19 Sevelamer Hcl (RENAGEL) 800 Mg Tablet, 800 MG PO TID, TAB 06/23/19 Loratadine (LORATADINE) 10 Mg Tablet, 10 MG PO DAILY, #30 TAB 06/23/19 Levocetirizine Dihydrochloride (LEVOCETIRIZINE DIHYDROCHLORIDE) 5 Mg Tablet, 5 MG PO DAILY 06/23/19 [Flonase] No Conflict Check, 50 MCG INH DAILY 06/23/19 Cholecalciferol (Vitamin D3) (CHOLECALCIFEROL) 1 Gm Crystals, 1 GM PO DAILY 06/23/19 Aspirin (ASPIR 81) 81 Mg Tablet.dr, 81 MG PO DAILY 06/23/19 Famotidine (FAMOTIDINE) 20 Mg Tab, 20 MG PO HS 06/23/19 Esomeprazole Magnesium (NEXIUM) 40 Mg Capsule.dr, 40 MG PO DAILY 06/23/19 [Breo] No Conflict Check, 1 INH INH DAILY 06/23/19 Amlodipine Besylate (AMLODIPINE BESYLATE) 10 Mg Tablet, 10 MG PO DAILY 06/23/19 SYLVESTER AMATO DO Jun 10, 2020 22:39
--- OUTSIDE RECORDS SUMMARY | 2020-06-10 22:46 | XMS REPORT | Clinical Summary ---
Author Author TAMIKO [facility] Organization [facility] Address Unknown Phone Unavailable Care Team Providers Care Scoop Machine Operator Name Role Phone Austen Bolden PCP Allergies Comments Active Allergy Reactions Severity Noted Date Combative after taking morphine Morphine Nausea And Medium 05/25/2018 Vomiting, Other (See Comments) Hydrocodone-Acetaminophen Nausea And Low 05/09 Vomiting Medications End Date Status Medication Sig Dispensed Refills Start Date Active aspirin 81 MG EC Take 81 mg by 0 tabletIndications: mouth daily. Awaiting organ transplant status Active amLODIPine (NORVASC) 10 Take 10 mg by 0 MG tablet mouth daily . 8 Active fluticasone (FLONASE) 50 1 spray by 0 07/05 mcg/actuation nasal spray Nasal route 8 as needed . Active esomeprazole (NEXIUM) 40 Take 40 mg by 0 07/05 MG capsule mouth daily . 8 Active sevelamer (RENVELA) 800 Take 3,200 mg 0 201 mg tabletIndications: and by mouth 3 8 1600 mg with snacks (three) times daily with meals . Active albuterol HFA (VENTOLIN Inhale 1 puff 0 HFA) 90 mcg/actuation by mouth via 8 inhaler inhaler every 6 (six) hours as needed . Active famotidine (PEPCID) 20 MG Take 20 mg by 0 11/10 tablet mouth once at 9 bedtime . Active cholecalciferol (VITAMIN Take 1,000 0 07/05 D3) 1,000 unit tablet Units by 8 mouth daily . Active loratadine 10 mg Cap Take by mouth 0 daily . 8 Active fluticasone-vilanterol Inhale 1 puff 0 (BREO ELLIPTA) 100-25 by mouth via mcg/dose DsDv inhaler daily. Active folic acid-multivitamins Take 1 tablet 0 (B COMPLEX-VITAMIN by mouth C-FOLIC ACID) 0.8 mg Tab daily. tablet Active calcium carbonate (TUMS) Take 3 0 500 mg chewable tablet tablets by mouth daily . Active glucometer (FREESTYLE) 0 Misc 9 07/26/2019 Discontinued aspirin-calcium carbonate Take 81 mg by 0 81 mg-300 mg calcium(777 mouth. mg) Tab 07/26/2019 Discontinued aspirin 81 MG chewable Take 81 mg by 0 01 tablet mouth daily . 8 07/26/2019 Discontinued levocetirizine (XYZAL) 5 Take by 0 11/30 MG tablet mouth. 9 07/26/2019 Discontinued ranitidine (ZANTAC) 150 Take 150 mg 0 MG tablet by mouth nightly. 05/23/2020 dexAMETHasone (DECADRON) Take 1 tablet 6 tablet 0 6 MG tablet (6 mg total) 0 by mouth daily for 6 days. Active Problems Problem Noted Date Dyspnea 05/11/2020 Portal hypertension 04/09/2017 Foot abscess 04/09/2017 Awaiting [...] & Plan: Patient has mixed hepatocellular and ch olestatic pattern of injury. Likely etiology is fatty liver. A comprehensiv e work up for other etiologies of elevated liver enzymes is recommended. Since he will need clearance for kidney transplant, a liver biopsy will be needed for further assessment. Risks and benefits of the transjugular liver biopsy were reviewed. With splenomegaly, there is concern for more advanced liver disease such as cirrhosis so transhepatic pressure grad ients can be done at the same time as the liver biopsy. Patient wishes to proceed. ESRD (end stage renal disease) on dialysis 04/07/201 6 Last Assessment & Plan: ESRD secondary to diabetes. He is on HD since 06/2015 on MWF schedule. Will need a liver/kidney transplant combinat ion. HTN (hypertension) 02/14/2016 Last Assessment & Plan: BP controlled on current regimen. 2 gra m sodium diet restrictions reviewed. Continue follow up with PCP and Nephrol ogist. Diabetes mellitus type 2 in obese 02/14/2016 Last Assessment & Plan: Diabetes complicated by ESRD, diabetic foot. Diabetes is a risk factor for fatty liver. Strict diabetes control is recommended. Used to be on insulin, not anymore since ESRD. Continue follow up with PCP. Immunity status testing 02/14/2016 Last Assessment & Plan: All patients with chronic liver disease , regardless of etiology, should be immunized to prevent hepatitis A and he patitis B if they are not already immune. Serologies suggest no immunity against Hep B. Hep B c Ab was not found so will be added to work up today . If the hep B c Ab is negative, he will need to complete the 3rd dose of t he vaccine series. If the hep B c Ab is positive, he will have already lowery d 2 of the hep B vaccines and this should complete his vaccine series. He p A IgG planned with labs today. NAFLD (nonalcoholic fatty liver disease) 02/14/2016 Last Assessment & Plan: NAFLD suspected based on laboratory lorenzo a, risk factors for fatty liver and significant family history for fatty li meera disease. Risk factor for NAFLD is obesity, diabetes and family history . Strict risk factor modification discussed with the patient. Pre-transplant evaluation for kidney transplant 05/2016 Last Assessment & Plan: Patient currently undergoing kidney tra nsplant evaluation. He was referred to hepatology clinic for elevated liver enzyme. Transjugular liver biopsy with measurement of portal hemodynamics is recommended. Further recommendations will follow. Obesity 02/14/2016 Last Assessment & Plan: Body mass index is 32.91 kg/(m^2). Obes ity is a risk factor for fatty liver. We recommended a 10% weight loss , which disproportionately decreases visceral fat and can improve hepatic st eatosis and steatohepatitis. We recommended a modified Ariadna's diet, mcnulty bstituting vegetables for wheat, corn, potato or rice or foods made from the flours of these carbohydrates. Literature provided. Abnormal liver enzymes 02/14/2016 Abnormal liver diagnostic imaging 02/14/2016 Last Assessment & Plan: US showed normal liver, splenomegaly an d no ascites. Patient platelet count is on low normal side. This can be seen in early cirrhosis. A CT scan with triple phase liver protocol for further work up is recommended. Decompensated hepatic cirrhosis Portal hypertension Obesity, Class II, BMI 35-39.9 ESRD on hemodialysis Encounters Care Team Description Date Type Specialty Nicky, Mary E 06/06/2020 Documentation Transplant Esther serafin Tyrone Reyes RN Follow-up 06/06/2020 Telephone Transplant Esther betancourt Mabel Betancourt 06/05/2020 Documentation Transplant KarlMabel Arguelles Awaiting organ transplant status; Hepatic cirrhosis, unspecified hepatic cirrhosis type, unspecified whether ascites present (HCC); ESRD on hemodialysis (HCC) 06/05/2020 Orders Only Transplant Esther betancourt Nicky Willa Gutierrez Appointment (Scheduled 07/10 appts w/pt (clinic, ct & Feali appt @ 12). Explained to pt he must dialyze within [address] scan. [facility]. Itinerary mailed to pt.) 06/04/2020 Telephone Transplant Esther betancourt Nicky, Rosetta 06/04/2020 Telephone Transplant Esther betancourt Nicky Rosetta 06/04/2020 Telephone Transplant Esther betancourt Nicky Rosetta Appointment (No answer. Voicemail is no t set up i was unable to leave message. Called to schedule meld labs appt due now. ) 05/28/2020 Telephone Transplant Madeline Pringle RN Labs Only 05/16/2020 Telephone Transplant Karlramiro serafin 05/14/2020 Travel 05/12/2020 Orders Only General Internal Me do Cook, MD Mita Baez Alok, MD Bartsch, MD Cristobal Munoz, Sharmaine Santos MD ESRD on hemodialysis (HCC) (Primary Dx); Awaiting organ transplant status; Cirrhosis of liver without ascites, unspecified hepatic cirrhosis type (HCC); Diabetes mellitus type 2 in obese (HCC); Elevated liver enzymes; Essential hypertension; NAFLD (nonalcoholic fatty liver disease); Obesity, Class II, BMI 35-39.9; Hyperkalemia; Hypervolemia, unspecified hypervolemia type; Cough; Dyspnea, unspecified type; Elevated troponin; Abnormal ECG; Portal hypertension (HCC) 05/11/2020 [facility] Internal [facility] dicine - Encounter 05/16/2020 Madeline Tafoya RN Awaiting organ transplant status (Primar y Dx); Cancer screening; Hepatic cirrhosis, unspecified hepatic cirrhosis type, unspecified whether ascites present (HCC); ESRD on hemodialysis (HCC) 03/27/2020 Orders Only Transplant Madeline Pringle RN MELD labs 03/22/2020 Telephone Transplant Avelino Capellan 02/16/2020 Documentation Transplant Madeline Tafoya RN Awaiting organ transplant status (Primar y Dx); Cancer screening; Hepatic cirrhosis, unspecified hepatic cirrhosis type, unspecified whether ascites present (HCC); ESRD on hemodialysis (HCC); Pre-operative cardiovascular examination, high risk surgery 02/13/2020 Orders Only Transplant Madeline Pringle RN EGD 02/13/2020 Telephone Transplant HepatLindsey Ballard 02/01/2020 Abstract Hepatology Eveline Whitney MD Kremer, Robin M, [facility] 01/24/2020 Social Work Transplant Eveline Summers MD Mindikoglu, Catia Lopez MD MPH Hepatic cirrhosis, unspecified hepatic c irrhosis type, unspecified whether ascites present (HCC) (Primary Dx); Awaiting organ transplant status; Cancer screening; Obesity, Class II, BMI 35-39.9; NAFLD (nonalcoholic fatty liver disease); Portal hypertension (HCC); Polyp of colon, unspecified part of colon, unspecified type; Osteoporosis, unspecified osteoporosis type, unspecified pathological fracture presence; Portal hypertensive gastropathy (HCC); Esophageal varices without bleeding, unspecified esophageal varices type (HCC) 01/24/2020 Follow-Up Transplant HepatAdilia Li, YARROW GATHERER 01/24/2020 Social Work Willa Saunders (Confirmed 01/23 appt w/pt.) 01/23/2020 Telephone Transplant Madeline Pringle RN 01/04/2020 Abstract Transplant Madeline Pringle RN Awaiting organ transplant status; Hepatic cirrhosis, unspecified hepatic cirrhosis type, unspecified whether ascites present (HCC); ESRD (end stage renal disease) on dialysis (HCC) 01/02/2020 Orders Only Transplant Hepatolo serafin Doris Fuller RN Labs Only 12/29/2019 Telephone Transplant HepatMadeline Priest RN 12/26/2019 Orders Only Transplant Hepatramiro Daniella Keller MD Awaiting organ transplant status; Hepatic cirrhosis, unspecified hepatic cirrhosis type, unspecified whether ascites present (HCC); ESRD on hemodialysis (HCC) 12/15/2019 Hospital Encounter Daniella Odell MD Awaiting organ transplant status; Hepatic cirrhosis, unspecified hepatic cirrhosis type, unspecified whether ascites present (HCC); Encounter for screening for other viral diseases 12/15/2019 Orders Only Lab Pcp, No 12/15/2019 Outside Orders Willa Saunders Appointment (Scheduled 01/23 social work er appt w/pt explained to him he needs to bring his support person on that day he said he would bring his sister with him on 01/23.) 12/12/2019 Telephone Transplant Esther betancourt Warren Verma LCSW [facility] 12/12/2019 Telephone Transplant HepatMadeline Priest RN Awaiting organ transplant status (Primar y Dx); Hepatic cirrhosis, unspecified hepatic cirrhosis type, unspecified whether ascites present (HCC); ESRD on hemodialysis (HCC) 12/12/2019 Orders Only Transplant Esther betancourt Willa Saunders Appointment (Scheduled 12/15 lab & cxr a ppts w/pt. ) 12/07/2019 Telephone Transplant Hepatramiro serafin Aime Zaldivar RN 11/24/2019 Abstract Transplant Nargis Jaquez RN Awaiting transplantation of kidney (Prim harika Dx) 11/23/2019 Orders Only Transplant Catia Saucedo MD MPH Screening for malignant neoplasm; Decompensated hepatic cirrhosis (HCC); Portal hypertension (HCC); Awaiting organ transplant status; Hepatic cirrhosis, unspecified hepatic cirrhosis type, unspecified whether ascites present (HCC); Cancer screening; ESRD (end stage renal disease) on dialysis (HCC) 09/20/2019 Hospital Radiology Encounter Catia Saucedo MD MPH 09/20/2019 Outside Orders Madeline Tafoya RN Awaiting organ transplant status (Primar y Dx); Hepatic cirrhosis, unspecified hepatic cirrhosis type, unspecified whether ascites present (HCC); Encounter for screening for other viral diseases 08/29/2019 Orders Only Transplant Esther serafin Eaw Rivera RN 08/26/2019 Abstract Transplant Esther betancourt Willa Saunders Appointment (Scheduled 09/20 u/s appt w/ pt. Itinerary mailed to pt.) 08/23/2019 Telephone Central Scheduling Madeline Tafoya RN Awaiting organ transplant status; Hepatic cirrhosis, unspecified hepatic cirrhosis type, unspecified whether ascites present (HCC); ESRD (end stage renal disease) on dialysis (HCC) 08/22/2019 Orders Only Transplant Madeline Pringle RN Awaiting organ transplant status (Primar y Dx); Hepatic cirrhosis, unspecified hepatic cirrhosis type, unspecified whether ascites present (HCC); Cancer screening; Screening for malignant neoplasm; ESRD (end stage renal disease) on dialysis (HCC) 08/22/2019 Orders Only Transplant Karlramiro serafin Willa Saunders Appointment (Called to schedule meld lab s due now spoke w/pt he said he doesn't know whats around him so he would call back to let us know when & where he will get labs drawn.) 08/19/2019 Telephone Transplant Madeline Pringle RN Records 08/10/2019 Telephone Transplant Madeline Pringle RN Follow-up 08/03/2019 Telephone Transplant Karlramiro serafin Willa Saunders 07/27/2019 Documentation Transplant Hepatramiro serafin Viktor Taylor MD Mindikoglu, Catia Lopez MD MPH Decompensated hepatic cirrhosis (HCC) (P rimary Dx); Portal hypertension (HCC); Awaiting organ transplant status; Hepatic cirrhosis, unspecified hepatic cirrhosis type, unspecified whether ascites present (HCC); Cancer screening; ESRD (end stage renal disease) on dialysis (HCC); Screening for malignant neoplasm; Esophageal varices without bleeding, unspecified esophageal varices type (HCC); Portal hypertensive gastropathy (HCC) 07/26/2019 Follow-Up Transplant Karlramiro serafin Willa Saunders Appointment (Confirmed 07/26 appt w/pt.) 07/25/2019 Telephone Transplant Esther betancourt Willa Saunders Appointment (Called to confirm 07/19 dee t and pt said he did not set up transportation so he asked to be rescheduled. Appt scheduled 07/26 w.pt. Itinerary mailed.) 07/18/2019 Telephone Transplant Esther betancourt Willa Saunders Appointment (Calling to confirm 07/19 cl inic appt and there was no answer and i was unable to leave message.) 07/18/2019 Telephone Transplant Esther betancourt Willa Saunders Appointment (Scheduled 07/19 hospital f/ u appt w/pt. Itinerary mailed.) 07/12/2019 Telephone Transplant Esther betancourt Willa Saunders Appointment (Called to schedule meld lab s due now and pt says he is still admitted @ [place] for foot infection. I explained to pt i will f/u with him next week to scheudle meld labs.) 07/04/2019 Telephone Transplant Karlramiro serafin Willa Saunders Appointment (Called and spoke w/pt he is currently admitted at [facility] for foot infection and asked him to call me when he is released because he needs to be seen in clinic 1 to 2 wks after pt said he would call me when that happens.) 06/30/2019 Telephone Transplant Karlramiro serafin Willa Saunders Appointment (Call to schedule labs for m eld update. Pt said he is currently @ [facility] for an infection in his foot. I explained to pt i would give info to rn to see if she can get them to draw meld labs.) 06/28/2019 Telephone Transplant Madeline Pringle RN Awaiting organ transplant status (Primar y Dx); Hepatic cirrhosis, unspecified hepatic cirrhosis type, unspecified whether ascites present (HCC); Cancer screening; ESRD (end stage renal disease) on dialysis (HCC) 06/20/2019 Orders Only Transplant Madeline Pringle RN Follow-up 06/20/2019 Telephone Transplant Esther serafin Willa Saunders Appointment (Called to schedule meld lab s due now. Pt said he is going to find out if there is a lab close to him and call me back to get orders sent. Scheduled 10/25 clinic appt. wpt Itinerary mailed.) 06/16/2019 Telephone Transplant Esther serafin Willa Saunders 06/16/2019 Telephone Transplant Karlramiro serafin ifli 06/10/2019 Immunizations Name Dates Previously Given Next Due Hepatitis A 08/26/2016 Hepatitis B 08/26/2016 Family History Medical History Relation Name Comments Diabetes Father Heart disease Father Kidney disease Father Diabetes Mother Heart disease Mother Liver disease Mother non-alcoholic fatty liver disease Diabetes Sister Relation Name Status Comments Father Mother Sister Social History Date Tobacco Use Types Packs/Day Years Used Quit: 2006 Former Smoker Cigarettes Smokeless Tobacco: Never Used Tobacco Cessation: Counseling Given: No Alcohol Use Drinks/Week oz/Week Comments No quit drinking in 2015; mallory r to that he used to drink during the weekends (2-5 drinks) Sex Assigned at Date Recorded Not on file Industry Job Start Date Occupation Not on file Not on file Not on file Travel End Travel History Travel Start No recent travel history available. Last Filed Vital Signs Time Taken Vital Sign Reading 05/16/2020 4:15 PM CDT Blood Pressure 132/77 05/16/2020 4:15 PM CDT Pulse 87 05/16/2020 4:15 PM CDT Temperature 36.3 C (97.3 F) 05/16/2020 4:15 PM CDT Respiratory Rate 17 05/16/2020 4:15 PM CDT Oxygen Saturation 98% - Inhaled Oxygen - Concentration 05/12/2020 1:30 PM CDT Weight 105.2 kg (231 lb 14.8 oz) 05/11/2020 10:00 PM CDT Height 170.2 cm (5' 7") 05/12/2020 1:30 PM CDT Body Mass Index 36.32 Plan of Treatment Care Team Description Date Type Specialty 07/10/2020 Follow-Up Transplant Hepatolo gy Catia Saucedo MD MPH [address] [address] [phone] 07/10/2020 Appointment Radiology Health Maintenance Due Date Last Done Comments PNEUMOCOCCAL VACCINE 2-64 1974 YEARS AT RISK (1 of 3 - PCV13) DIABETIC EYE EXAM 1978 DIABETIC FOOT EXAM 1978 URINE MICROALBUMIN 1978 COLON CANCER SCREENING 02/13/2017 02/14/2016, 05/2016 ANNUAL FOBT MEDICARE ANNUAL WELLNESS 08/09/2019 (YEAR 2 or FIRST YEAR if no IPPE) INFLUENZA VACCINE (#1) 2020 HEMOGLOBIN A1C 11/13/2020 05/13/2020, 019, 05/25/2018, Additional history exists LIPID PANEL 05/03/2022 05/03/2019, 016 Procedures Comments Procedure Name Priority Date/Time Associated Diag nosis COMPREHENSIVE METABOLIC Routine 06/05/2020 Awaiti ng organ transplant PANEL 3:17 PM CDT status Hepatic cirrhosis, unspecified hepatic cirrhosis type, unspecified whether ascites present (HCC) ESRD on hemodialysis (HCC) CBC W/PLT COUNT & AUTO Routine 06/05/2020 Awaitin g organ transplant DIFFERENTIAL 3:17 PM CDT status Hepatic cirrhosis, unspecified hepatic cirrhosis type, unspecified whether ascites present (HCC) ESRD on hemodialysis (HCC) PROTHROMBIN TIME/INR Routine 06/05/2020 Awaiting organ transplant 3:17 PM CDT status Hepatic cirrhosis, unspecified hepatic cirrhosis type, unspecified whether ascites present (HCC) ESRD on hemodialysis (HCC) BILIRUBIN, DIRECT Routine 06/05/2020 Awaiting org an transplant 3:17 PM CDT status Hepatic cirrhosis, unspecified hepatic cirrhosis type, unspecified whether ascites present (HCC) ESRD on hemodialysis (HCC) RHYTHM STRIP - SCAN 05/21/2020 11:42 AM CDT REPORT OF PROCEDURE - 05/21/2020 ENDOSCOPY SCAN 11:42 AM CDT TRANSFUSION SERVICE 05/16/2020 REPORT - SCAN 6:00 PM CDT POCT-GLUCOSE METER Routine 05/16/2020 3:50 PM CDT RHYTHM STRIP - SCAN 05/16/2020 2:31 PM CDT HEMODIALYSIS INPATIENT Routine 05/16/2020 12:35 PM CDT POCT-GLUCOSE METER Routine 05/16/2020 11:25 AM CDT POCT-GLUCOSE METER Routine 05/16/2020 9:09 AM CDT CBC W/PLT COUNT & AUTO Routine 05/16/2020 DIFFERENTIAL 4:51 AM CDT PHOSPHORUS Routine 05/16/2020 4:51 AM CDT MAGNESIUM Routine 05/16/2020 4:51 AM CDT C-REACTIVE PROTEIN Routine 05/16/2020 4:51 AM CDT COMPREHENSIVE METABOLIC Routine 05/16/2020 PANEL 4:51 AM CDT CBC W/PLT COUNT & AUTO Routine 05/16/2020 DIFFERENTIAL 4:51 AM CDT PREPARE PLASMA Routine 05/15/2020 11:54 PM CDT POCT-GLUCOSE METER Routine 05/15/2020 7:51 PM CDT POCT-GLUCOSE METER Routine 05/15/2020 12:39 PM CDT PHOSPHORUS STAT 05/15/2020 9:11 AM CDT MAGNESIUM STAT 05/15/2020 9:11 AM CDT BASIC METABOLIC PANEL (7) STAT 05/15/2020 9:11 AM CDT POCT-GLUCOSE METER Routine 05/15/2020 9:03 AM CDT FERRITIN Routine 05/15/2020 3:04 AM CDT C-REACTIVE PROTEIN Routine 05/15/2020 3:04 AM CDT POCT-GLUCOSE METER Routine 05/15/2020 2:56 AM CDT POCT-GLUCOSE METER Routine 05/14/2020 11:00 PM CDT TRANSFUSION SERVICE 05/14/2020 REPORT - SCAN 6:01 PM CDT POCT-GLUCOSE METER Routine 05/14/2020 5:09 PM CDT POCT-GLUCOSE METER Routine 05/14/2020 4:42 PM CDT POCT-GLUCOSE METER Routine 05/14/2020 12:35 PM CDT HEMODIALYSIS INPATIENT Routine 05/14/2020 12:10 PM CDT POCT-GLUCOSE METER Routine 05/14/2020 7:30 AM CDT FERRITIN Routine 05/14/2020 5:22 AM CDT C-REACTIVE PROTEIN Routine 05/14/2020 5:22 AM CDT PROTHROMBIN TIME/INR Routine 05/14/2020 5:22 AM CDT HEPATIC FUNCTION PANEL Routine 05/14/2020 5:22 AM CDT BASIC METABOLIC PANEL (7) Routine 05/14/2020 5:22 AM CDT TRANSFUSE PLASMA Routine 05/14/2020 2:35 AM CDT POCT-GLUCOSE METER Routine 05/13/2020 10:20 PM CDT POCT-GLUCOSE METER Routine 05/13/2020 6:23 PM CDT TYPE AND SCREEN, Routine 05/13/2020 AUTOMATED 3:23 PM CDT POCT-GLUCOSE METER Routine 05/13/2020 11:57 AM CDT POCT-GLUCOSE METER Routine 05/13/2020 8:29 AM CDT TROPONIN I STAT 05/13/2020 Add-on 5:45 AM CDT HEMOGLOBIN A1C Routine 05/13/2020 5:45 AM CDT FERRITIN Routine 05/13/2020 5:45 AM CDT C-REACTIVE PROTEIN Routine 05/13/2020 5:45 AM CDT PROTHROMBIN TIME/INR Routine 05/13/2020 5:45 AM CDT HEPATIC FUNCTION PANEL Routine 05/13/2020 5:45 AM CDT BASIC METABOLIC PANEL (7) Routine 05/13/2020 5:45 AM CDT POCT-GLUCOSE METER Routine 05/12/2020 9:51 PM CDT POCT-GLUCOSE METER Routine 05/12/2020 6:26 PM CDT XR CHEST 1 VIEW Routine 05/12/2020 PORTABLE/BEDSIDE 3:26 PM CDT HEMODIALYSIS INPATIENT Routine 05/12/2020 3:24 PM CDT PROCALCITONIN Routine 05/12/2020 1:40 PM CDT POCT-GLUCOSE METER Routine 05/12/2020 1:39 PM CDT HEPATITIS B SURFACE Routine 05/12/2020 ANTIGEN 12:25 PM CDT TROPONIN I STAT 05/12/2020 10:03 AM CDT C-REACTIVE PROTEIN STAT 05/12/2020 10:03 AM CDT POCT-GLUCOSE METER Routine 05/12/2020 8:24 AM CDT POCT-GLUCOSE METER Routine 05/12/2020 2:55 AM CDT C. DIFFICILE GDH TOXIN Routine 05/12/2020 2:53 AM CDT STOOL PATH CHARGE Routine 05/12/2020 2:52 AM CDT SHIGA TOXIN SCREEN Routine 05/12/2020 2:52 AM CDT FECAL LEUKOCYTES Routine 05/12/2020 2:52 AM CDT STOOL CULTURE + SHIGA Routine 05/12/2020 TOXIN 2:52 AM CDT ECG 12-LEAD Routine 05/12/2020 2:36 AM CDT Procedure Note - Interface, External Ris In - 05/12/2020 3:34 AM CDT Ventricula r Rate 76 BPM Atrial Rate 76 BPM P-R Interval 298 ms QRS Duration 124 ms Q-T Interval 462 ms QTC Calculatio n(Bazett) 519 ms P [place] 44 degrees R [place] -25 degrees T [place] 23 degrees Sinus rhythm with 1st degree A-V block Non-specif ic intra-vent ricular conduction delay Borderline ECG When compared with ECG of 02-FEB-201 6 11:11, AL interval has increased QRS duration has increased T wave inversion now evident in Anterior leads ECG 12-LEAD Routine 05/12/2020 2:36 AM CDT (CELLAVISION MANUAL DIFF) Routine 05/12/2020 1:39 AM CDT CBC W/PLT COUNT & AUTO Routine 05/12/2020 DIFFERENTIAL 1:39 AM CDT CBC W/PLT COUNT & AUTO Routine 05/12/2020 DIFFERENTIAL 1:39 AM CDT HEPATIC FUNCTION PANEL Routine 05/12/2020 1:39 AM CDT BASIC METABOLIC PANEL (7) Routine 05/12/2020 1:39 AM CDT AMMONIA STAT 05/12/2020 1:38 AM CDT PROTHROMBIN TIME/INR Routine 05/12/2020 1:38 AM CDT SARS-COV2/RT-PCR ([facility] & Routine 05/12/2020 REF LABS) 12:08 AM CDT LACTATE DEHYDROGENASE Routine 05/12/2020 ([facility]) 12:04 AM CDT FERRITIN Routine 05/12/2020 12:04 AM CDT D-DIMER Routine 05/12/2020 12:04 AM CDT BLOOD CULTURE Routine 05/12/2020 12:03 AM CDT COMPREHENSIVE METABOLIC Routine 03/27/2020 Awaiti ng organ transplant PANEL 12:23 PM CDT status Hepatic cirrhosis, unspecified hepatic cirrhosis type, unspecified whether ascites present (HCC) ESRD on hemodialysis (HCC) CBC W/PLT COUNT & AUTO Routine 03/27/2020 Awaitin g organ transplant DIFFERENTIAL 12:23 PM CDT status Hepatic cirrhosis, unspecified hepatic cirrhosis type, unspecified whether ascites present (HCC) ESRD on hemodialysis (HCC) BILIRUBIN, DIRECT Routine 03/27/2020 Awaiting org an transplant 12:23 PM CDT status Hepatic cirrhosis, unspecified hepatic cirrhosis type, unspecified whether ascites present (HCC) ESRD on hemodialysis (HCC) PROTHROMBIN TIME/INR Routine 03/27/2020 Awaiting organ transplant 12:23 PM CDT status Hepatic cirrhosis, unspecified hepatic cirrhosis type, unspecified whether ascites present (HCC) ESRD on hemodialysis (HCC) CBC W/PLT COUNT & AUTO Routine 01/24/2020 Awaitin g organ transplant DIFFERENTIAL 10:21 AM CDT status Hepatic cirrhosis, unspecified hepatic cirrhosis type, unspecified whether ascites present (HCC) PROTHROMBIN TIME/INR Routine 01/24/2020 Awaiting organ transplant 10:21 AM CDT status Hepatic cirrhosis, unspecified hepatic cirrhosis type, unspecified whether ascites present (HCC) COMPREHENSIVE METABOLIC Routine 01/24/2020 Awaiti organ transplant PANEL 10:21 AM CDT status Hepatic cirrhosis, unspecified hepatic cirrhosis type, unspecified whether ascites present (HCC) CBC W/PLT COUNT & AUTO Routine 01/24/2020 Awaitin g organ transplant DIFFERENTIAL 10:21 AM CDT status Hepatic cirrhosis, unspecified hepatic cirrhosis type, unspecified whether ascites present (HCC) BILIRUBIN, DIRECT Routine 01/24/2020 Awaiting org an transplant 10:21 AM CDT status Hepatic cirrhosis, unspecified hepatic cirrhosis type, unspecified whether ascites present (HCC) ALPHA FETOPROTEIN (AFP), Routine 01/24/2020 Await ing organ transplant TUMOR MARKER 10:21 AM CDT status Hepatic cirrhosis, unspecified hepatic cirrhosis type, unspecified whether ascites present (HCC) Cancer screening PLATELET ESTIMATION Routine 01/03/2020 1:02 PM MEDICAL ANTHROPOLOGY DIRECTOR PROTHROMBIN TIME/INR Routine 01/03/2020 Awaiting organ transplant 1:02 PM MEDICAL ANTHROPOLOGY DIRECTOR status Hepatic cirrhosis, unspecified hepatic cirrhosis type, unspecified whether ascites present (HCC) ESRD (end stage renal disease) on dialysis (HCC) COMPREHENSIVE METABOLIC Routine 01/03/2020 Awaiti ng organ transplant PANEL 1:02 PM MEDICAL ANTHROPOLOGY DIRECTOR status Hepatic cirrhosis, unspecified hepatic cirrhosis type, unspecified whether ascites present (HCC) ESRD (end stage renal disease) on dialysis (HCC) CBC W/PLT COUNT & AUTO Routine 01/03/2020 Awaitin g organ transplant DIFFERENTIAL 1:02 PM MEDICAL ANTHROPOLOGY DIRECTOR status Hepatic cirrhosis, unspecified hepatic cirrhosis type, unspecified whether ascites present (HCC) ESRD (end stage renal disease) on dialysis (HCC) BILIRUBIN, DIRECT Routine 01/03/2020 Awaiting org an transplant 1:02 PM MEDICAL ANTHROPOLOGY DIRECTOR status Hepatic cirrhosis, unspecified hepatic cirrhosis type, unspecified whether ascites present (HCC) ESRD (end stage renal disease) on dialysis (HCC) XR CHEST 2 VIEWS Routine 12/15/2019 Awaiting orga n transplant 8:24 AM MEDICAL ANTHROPOLOGY DIRECTOR status Hepatic cirrhosis, unspecified hepatic cirrhosis type, unspecified whether ascites present (HCC) ESRD on hemodialysis (HCC) CBC W/PLT COUNT & AUTO Routine 12/15/2019 Awaitin g organ transplant DIFFERENTIAL 7:31 AM MEDICAL ANTHROPOLOGY DIRECTOR status Hepatic cirrhosis, unspecified hepatic cirrhosis type, unspecified whether ascites present (HCC) VARICELLA ZOSTER Routine 12/15/2019 Awaiting orga n transplant ANTIBODY, IGG 7:31 AM MEDICAL ANTHROPOLOGY DIRECTOR status Hepatic cirrhosis, unspecified hepatic cirrhosis type, unspecified whether ascites present (HCC) RPR Routine 12/15/2019 Awaiting organ transplant 7:31 AM MEDICAL ANTHROPOLOGY DIRECTOR status Hepatic cirrhosis, unspecified hepatic cirrhosis type, unspecified whether ascites present (HCC) CRYPTOCOCCAL ANTIGEN Routine 12/15/2019 Awaiting organ transplant 7:31 AM MEDICAL ANTHROPOLOGY DIRECTOR status Hepatic cirrhosis, unspecified hepatic cirrhosis type, unspecified whether ascites present (HCC) T SPOT TB Routine 12/15/2019 Awaiting organ transplant 7:31 AM MEDICAL ANTHROPOLOGY DIRECTOR status Hepatic cirrhosis, unspecified hepatic cirrhosis type, unspecified whether ascites present (HCC) HEPATITIS C ANTIBODY Routine 12/15/2019 Awaiting organ transplant 7:31 AM MEDICAL ANTHROPOLOGY DIRECTOR status Hepatic cirrhosis, unspecified hepatic cirrhosis type, unspecified whether ascites present (HCC) HEPATITIS B SURFACE Routine 12/15/2019 Encounter for screening ANTIGEN 7:31 AM MEDICAL ANTHROPOLOGY DIRECTOR for other viral dis eases Awaiting organ transplant status Hepatic cirrhosis, unspecified hepatic cirrhosis type, unspecified whether ascites present (HCC) HEPATITIS B SURFACE Routine 12/15/2019 Awaiting o rgan transplant ANTIBODY 7:31 AM MEDICAL ANTHROPOLOGY DIRECTOR status Hepatic cirrhosis, unspecified hepatic cirrhosis type, unspecified whether ascites present (HCC) HEPATITIS B CORE Routine 12/15/2019 Encounter for screening ANTIBODY, TOTAL 7:31 AM MEDICAL ANTHROPOLOGY DIRECTOR for other viral dis eases Awaiting organ transplant status Hepatic cirrhosis, unspecified hepatic cirrhosis type, unspecified whether ascites present (HCC) HEPATITIS B CORE Routine 12/15/2019 Awaiting orga n transplant ANTIBODY, IGM 7:31 AM MEDICAL ANTHROPOLOGY DIRECTOR status Hepatic cirrhosis, unspecified hepatic cirrhosis type, unspecified whether ascites present (HCC) HEPATITIS A ANTIBODY, IGG Routine 12/15/2019 Awai ting organ transplant 7:31 AM MEDICAL ANTHROPOLOGY DIRECTOR status Hepatic cirrhosis, unspecified hepatic cirrhosis type, unspecified whether ascites present (HCC) HIV-1 ANTIGEN WITH Routine 12/15/2019 Awaiting or jeannine transplant HIV-1/2 ANTIBODY 7:31 AM MEDICAL ANTHROPOLOGY DIRECTOR status Hepatic cirrhosis, unspecified hepatic cirrhosis type, unspecified whether ascites present (HCC) RUBELLA ANTIBODY, IGG Routine 12/15/2019 Awaiting organ transplant 7:31 AM MEDICAL ANTHROPOLOGY DIRECTOR status Hepatic cirrhosis, unspecified hepatic cirrhosis type, unspecified whether ascites present (HCC) MUMPS ANTIBODY, IGG Routine 12/15/2019 Awaiting o rgan transplant 7:31 AM MEDICAL ANTHROPOLOGY DIRECTOR status Hepatic cirrhosis, unspecified hepatic cirrhosis type, unspecified whether ascites present (HCC) RUBEOLA ANTIBODY IGG Routine 12/15/2019 Awaiting organ transplant 7:31 AM MEDICAL ANTHROPOLOGY DIRECTOR status Hepatic cirrhosis, unspecified hepatic cirrhosis type, unspecified whether ascites present (HCC) BILIRUBIN, DIRECT Routine 12/15/2019 Awaiting org an transplant 7:31 AM MEDICAL ANTHROPOLOGY DIRECTOR status Hepatic cirrhosis, unspecified hepatic cirrhosis type, unspecified whether ascites present (HCC) CBC W/PLT COUNT & [facility]:31 AM MEDICAL ANTHROPOLOGY DIRECTOR status Hepatic cirrhosis, unspecified hepatic cirrhosis type, unspecified whether ascites present (HCC) PROTHROMBIN TIME/INR Routine 12/15/2019 Awaiting organ transplant 7:31 AM MEDICAL ANTHROPOLOGY DIRECTOR status Hepatic cirrhosis, unspecified hepatic cirrhosis type, unspecified whether ascites present (HCC) COMPREHENSIVE METABOLIC Routine 12/15/2019 Awaiti organ transplant PANEL 7:31 AM MEDICAL ANTHROPOLOGY DIRECTOR status Hepatic cirrhosis, unspecified hepatic cirrhosis type, unspecified whether ascites present (HCC) US ABDOMEN COMPLETE Routine 09/20/2019 Screening for malignant 9:58 AM MEDICAL ANTHROPOLOGY DIRECTOR neoplasm Decompensated hepatic cirrhosis (HCC) Portal hypertension (HCC) Awaiting organ transplant status Hepatic cirrhosis, unspecified hepatic cirrhosis type, unspecified whether ascites present (HCC) Cancer screening ESRD (end stage renal disease) on dialysis (HCC) PROTHROMBIN TIME/INR Routine 08/22/2019 Awaiting organ transplant 12:58 PM CDT status Hepatic cirrhosis, unspecified hepatic cirrhosis type, unspecified whether ascites present (HCC) ESRD (end stage renal disease) on dialysis (HCC) COMPREHENSIVE METABOLIC Routine 08/22/2019 Awaiti organ transplant PANEL 12:58 PM CDT status Hepatic cirrhosis, unspecified hepatic cirrhosis type, unspecified whether ascites present (HCC) ESRD (end stage renal disease) on dialysis (HCC) CBC W/PLT COUNT & AUTO Routine 08/22/2019 Awaitin g organ transplant DIFFERENTIAL 12:58 PM CDT status Hepatic cirrhosis, unspecified hepatic cirrhosis type, unspecified whether ascites present (HCC) ESRD (end stage renal disease) on dialysis (HCC) BILIRUBIN, DIRECT Routine 08/22/2019 Awaiting org an transplant 12:58 PM CDT status Hepatic cirrhosis, unspecified hepatic cirrhosis type, unspecified whether ascites present (HCC) ESRD (end stage renal disease) on dialysis (HCC) CBC W/PLT COUNT & AUTO Routine 07/26/2019 [facility] g organ transplant DIFFERENTIAL 11:18 AM CDT status Hepatic cirrhosis, unspecified hepatic cirrhosis type, unspecified whether ascites present (HCC) ESRD (end stage renal disease) on dialysis (HCC) PROTHROMBIN TIME/INR Routine 07/26/2019 Awaiting organ transplant 11:18 AM CDT status Hepatic cirrhosis, unspecified hepatic cirrhosis type, unspecified whether ascites present (HCC) ESRD (end stage renal disease) on dialysis (HCC) COMPREHENSIVE METABOLIC Routine 07/26/2019 Awaiti organ transplant PANEL 11:18 AM CDT status Hepatic cirrhosis, unspecified hepatic cirrhosis type, unspecified whether ascites present (HCC) ESRD (end stage renal disease) on dialysis (HCC) CBC W/PLT COUNT & AUTO Routine 07/26/2019 [facility] g organ transplant DIFFERENTIAL 11:18 AM CDT status Hepatic cirrhosis, unspecified hepatic cirrhosis type, unspecified whether ascites present (HCC) ESRD (end stage renal disease) on dialysis (HCC) BILIRUBIN, DIRECT Routine 07/26/2019 Awaiting org an transplant 11:18 AM CDT status Hepatic cirrhosis, unspecified hepatic cirrhosis type, unspecified whether ascites present (HCC) ESRD (end stage renal disease) on dialysis (HCC) ALPHA FETOPROTEIN (AFP), Routine 07/26/2019 Await [facility] organ transplant TUMOR MARKER 11:18 AM CDT status Hepatic cirrhosis, unspecified hepatic cirrhosis type, unspecified whether ascites present (HCC) Cancer screening ESRD (end stage renal disease) on dialysis (HCC) after 06/10/2019 Results * Prothrombin time/INR (06/05/2020 3:17 PM CDT) Only the most recent of 10 results within the time period is included. INR 1.1 [employer] Comment: Reference Range 0.9-1.1 Moderate-intensity Warfarin Therapy 2.0-3.0 Higher-intensity Warfarin Therapy 3.0-4.0 PT 11.8 (H) 9.0 - 11.5 sec [employer] Comment: For more information on this test, go to: http://education.DailyBooth.com/faq/OBH967 Specimen Blood Resulting Agency Comment Performing Organization Information: Site ID: [id number] Name: [facility] Address: [address] [place] [id number] Director: Oliverio Martinez Performing Organization Address [facility] one Number [address] [place] [address] [place] * CBC with platelet count + automated diff (06/05/2020 3:17 PM CDT) Only the most recent of 4 results within the time period is included. WBC 4.7 3.8 - 10.8 Thousand/uL [facility] A RBC 3.32 (L) 4.20 - 5.80 Million/uL [facility] A Hemoglobin 10.6 (L) 13.2 - 17.1 g/dL [facility] Hematocrit 32.5 (L) 38.5 - 50.0 % [facility] MCV 97.9 80.0 - 100.0 fL [place] MCH 31.9 27.0 - 33.0 pg [place] MCHC 32.6 32.0 - 36.0 g/dL [place] RDW 17.0 (H) 11.0 - 15.0 % [place] Platelets 94 (L) 140 - 400 Thousand/uL [place] MPV 11.3 7.5 - 12.5 fL [place] # Neutros 3,163 1,500 - 7,800 cells/uL [facility] # Lymphs 851 850 - 3,900 cells/uL [facility] # Monos 338 200 - 950 cells/uL [facility] # Eos 329 15 - 500 cells/uL [facility] # Baso 19 0 - 200 cells/uL [place] % Neutros 67.3 % [place] % Lymphs 18.1 % [place] % Monos 7.2 % [place] % Eos 7.0 % [place] % Baso 0.4 % [facility] Specimen Blood Resulting Agency Comment Performing Organization Information: Site ID: [id number] Name: [facility] Address: [address] [place] [phone] Director: Oliverio Martinez Performing Organization Address [facility] one Number [address] [place] [address] [place] * Bilirubin, direct (06/05/2020 3:17 PM CDT) Only the most recent of 7 results within the time period is included. Bilirubin, Total 0.9 0.2 - 1.2 mg/dL [place] Bilirubin, Direct 0.3 (H) < OR = 0.2 mg/dL [place] Bilirubin, Indirect 0.6 0.2 - 1.2 mg/dL (calc) [facility] Specimen Blood Resulting Agency Comment Performing Organization Information: Site ID: [id number] Name: [facility] Address: [address] [place] [id number] Director: Oliverio Martinez Performing Organization Address City/State/Zipcode Ph one Number [facility] [address] [place] [address] [place] * Comprehensive metabolic panel (06/05/2020 3:17 PM CDT) Only the most recent of 8 results within the time period is included. Glucose 129 (H) 65 - 99 mg/dL [place] Comment: Fasting reference interval For someone without known diabetes, a glucose value >125 mg/dL indicates that they may have diabetes and this should be confirmed with a follow-up test. BUN 45 (H) 7 - 25 mg/dL [facility] Creatinine 10.65 (H) 0.70 - 1.33 mg/dL [facility] Comment: Verified by repeat analysis. For patients >49 years of age, the reference limit for Creatinine is approximately 13% higher for people identified as -Bahamian. eGFR If NonAfricn Am 5 (L) > OR = 60 mL/min/1.73m2 [place] eGFR If Africn Am 6 (L) > OR = 60 mL/min/1.73m2 [place] BUN/Creatinine Ratio 4 (L) 6 - 22 (calc) [place] Sodium 139 135 - 146 mmol/L [place] Potassium, Serum 5.9 (H) 3.5 - 5.3 mmol/L [facility] Chloride 100 98 - 110 mmol/L [facility] Carbon Dioxide, Total 25 20 - 32 mmol/L [place] Calcium, Serum 8.7 8.6 - 10.3 mg/dL [place] Protein, Total, Serum 6.0 (L) 6.1 - 8.1 g/dL [place] Albumin 3.2 (L) 3.6 - 5.1 g/dL [place] GLOBULIN ([facility]) 2.8 1.9 - 3.7 g/dL (calc) [place] Albumin Globulin Ratio 1.1 1.0 - 2.5 (calc) [facility] Bilirubin, Total 0.9 0.2 - 1.2 mg/dL [place] Alkaline Phosphatase, S 242 (H) 35 - 144 U/L [place] AST (SGOT) 55 (H) 10 - 35 U/L [place] ALT (SGPT) 36 9 - 46 U/L [place] Specimen Blood Resulting Agency Comment Performing Organization Information: Site ID: [id number] Name: [facility] Address: [address] [place] [id number] Director: Oliverio Martinez Performing Organization Address City/State/[facility] Ph one Number [facility] [address] [place] [address] [place] * RHYTHM STRIP - SCAN (05/21/2020 11:42 AM CDT) Only the most recent of 2 results within the time period is included. Narrative Performed At This result has an attachment that is n ot available. * EKG-SCANNED (05/21/2020 11:42 AM CDT) Narrative Performed At This result has an attachment that is n ot available. * TRANSFUSION SERVICE REPORT - SCAN (05/16/2020 6:00 PM CDT) Only the most recent of 2 results within the time period is included. Narrative Performed At This result has an attachment that is n ot available. * POC-Glucose meter (05/16/2020 3:50 PM CDT) Only the most recent of 21 results within the time period is included. POC-Glucose Meter 275 (H)Comment: : TESTED AT 70 - 110 mg/dL [address] [address]: Computer Meteorologist/Maintenance Worker Swimming Pool ID = [id number] for MINOR PUCKETT Specimen Blood Performing Organization Address City/State/[facility] Ph one Number [address] [facility] [facility]ENTER * HEMODIALYSIS INPATIENT (05/16/2020 12:35 PM CDT) Narrative Performed At Laura Degroot RN 05/16/2020 12:4 2 PM Procedure tolerated. Received mannitol 12.5 gm for blood pressure support. Vital signs stable post proced ure. HD duration 3.5 hours UF 2.6 L via right forearm AV Fistula. Lab Results Component Value Date WBC 4.3 05/16/2020 HGB 9.4 (L) 05/16/2020 HCT 28.8 (L) 05/16/2020 MCV 99.0 (H) 05/16/2020 PLT 75 (L) 05/16/2020 Lab Results Component Value Date GLUCOSE 258 (H) 05/16/2020 CALCIUM 8.1 (L) 05/16/2020 NA 135 (L) 05/16/2020 K 4.8 05/16/2020 CO2 23 05/16/2020 CL 96 (L) 05/16/2020 BUN 93 (H) 05/16/2020 CREATININE 13.90 (H) 05/16/2020 No components found for: HEPSAG Vitals: 05/16/20 1145 BP: 101/62 Pulse: 82 Resp: 16 Temp: SpO2: 97% * C-Reactive Protein (05/16/2020 4:51 AM CDT) Only the most recent of 5 results within the time period is included. CRP 2.73 (H) 0.00 - 0.50 mg/dL [facility] Specimen Blood Narrative Performed At Computer Meteorologist ID - VANESSA L [facility] Performing Organization Address City/State/Zipcode Ph one Number [place] [address] [facility] * CBC with platelet count + automated diff (05/16/2020 4:51 AM CDT) Only the most recent of 5 results within the time period is included. WBC 4.3 3.5 - 10.5 K/L [facility] RBC 2.91 (L) 4.63 - 6.08 M/L [facility] Hemoglobin 9.4 (L) 13.7 - 17.5 GM/DL [facility] Hematocrit 28.8 (L) 40.1 - 51.0 % [facility] MCV 99.0 (H) 79.0 - 92.2 fL [facility] MCH 32.3 (H) 25.7 - 32.2 pg [facility] MCHC 32.6 32.3 - 36.5 GM/DL [facility] RDW 17.9 (H) 11.6 - 14.4 % [facility] Platelets 75 (L) 150 - 450 K/CU MM [facility] MPV 11.5 9.4 - 12.4 fL [facility] nRBC 0 0 - 0 /100 WBC [facility] % Neutros 83 % [facility] % Lymphs 10 % [facility] % Monos 5 % [facility] % Eos 0 % [facility] % Baso 0 % [facility] # Neutros 3.60 1.78 - 5.38 K/L [facility] # Lymphs 0.44 (L) 1.32 - 3.57 K/L [facility] # Monos 0.23 (L) 0.30 - 0.82 K/L [facility] # Eos 0.00 (L) 0.04 - 0.54 K/L [facility] # Baso 0.01 0.01 - 0.08 K/L [facility] Immature 1 0 - 1 % [facility] Granulocytes-[facility] Specimen Blood Performing Organization Address City/State/Zipcode Ph one Number [facility] [address] [facility] [place] [address] [facility] * Phosphorus (05/16/2020 4:51 AM CDT) Only the most recent of 2 results within the time period is included. Phosphorus 6.5 (H) 2.3 - 4.7 mg/dL [facility] Specimen Blood Narrative Performed At Computer Meteorologist ID - VANESSA Rodríguez [facility] Performing Organization Address [facility] one Number [address] 0 [phone] [address] * Magnesium (05/16/2020 4:51 AM CDT) Only the most recent of 2 results within the time period is included. Magnesium 2.5 1.6 - 2.6 mg/dL [facility] Specimen Blood Narrative Performed At Computer Meteorologist ID - VANESSA Rodríguez [facility] Performing Organization Address [facility] one Number [address] 0 [phone] [place] [address] * Prepare plasma (05/15/2020 11:54 PM CDT) Unit ABO O Pos SAFETRACE [place] UNIT NUMBER [id number] [place] Status TX_TIMEINCHART SAFET[place]ACE [place] Blood Bank Product FFP SAFETRACE [place] PRODUCT CODE [id number] [place] Specimen Blood Performing Organization Address [facility] one Number [place] * Basic Metabolic Panel (05/15/2020 9:11 AM CDT) Only the most recent of 4 results within the time period is included. Sodium 135 (L) 136 - 145 meq/L [facility] Potassium 4.8 3.5 - 5.1 meq/L [facility] Chloride 98 98 - 107 meq/L [facility] CO2 23 22 - 29 meq/L [facility] BUN 77 (H) 7 - 21 mg/dL [facility] Creatinine 12.64 (H) 0.57 - 1.25 mg/dL [facility] Glucose 284 (H) 70 - 105 mg/dL [facility] Calcium 8.0 (L) 8.4 - 10.2 mg/dL [facility] EGFR 4Comment: ESTIMATED GFR IS NOT mL/min/1.73 sq m [facility] ACCURATE CREATININE [facility] CLEARANCE IN PREDICTING GLOMERULAR FILTRATION RATE. ESTIMATED GFR IS NOT APPLICABLE FOR DIALYSIS PATIENTS. Specimen Blood Narrative Performed At Computer Meteorologist ID - [facility] L [facility] Performing Organization Address City/[facility] Ph one [address] * Ferritin (05/15/2020 3:04 AM CDT) Only the most recent of 4 results within the time period is included. Ferritin 2,562.81 (H) 5.00 - 275.00 ng/mL [facility] Specimen Blood Narrative Performed At Computer Meteorologist ID - PIAYA L [facility] Performing Organization Address City/[facility] Ph one [address] * HEMODIALYSIS INPATIENT (05/14/2020 12:10 PM CDT) Narrative Performed At Filippo Jean RN 05/14/2020 12 :11 PM HD x 3.5 hrs. UF net 3L. Given 1 dose o f mannitol for BP support. Pt awake and alert, not in distress. Lab Results Component Value Date WBC 4.9 05/12/2020 HGB 9.9 (L) 05/12/2020 HCT 29.6 (L) 05/12/2020 MCV 99.7 (H) 05/12/2020 PLT 83 (L) 05/12/2020 Lab Results Component Value Date GLUCOSE 452 (HH) 05/14/2020 CALCIUM 7.6 (L) 05/14/2020 NA 130 (L) 05/14/2020 K 5.0 05/14/2020 CO2 20 (L) 05/14/2020 CL 93 (L) 05/14/2020 BUN 92 (H) 05/14/2020 CREATININE 15.71 (H) 05/14/2020 Lab Results Component Value Date HEPBSAG Nonreactive 05/12/2020 Vitals: 05/14/20 1145 BP: 115/58 Pulse: 74 Resp: 20 Temp: 96.5 F (35.8 C) SpO2: 98% * Hepatic function panel (05/14/2020 5:22 AM CDT) Only the most recent of 3 results within the time period is included. Protein, Total 6.5 6.0 - 8.3 gm/dL [facility] Albumin 3.0 (L) 3.5 - 5.0 g/dL [facility] Total Bilirubin 0.5 0.2 - 1.2 mg/dL [facility] Bilirubin, Direct 0.4 0.1 - 0.5 mg/dL [facility] Alkaline Phosphatase 172 (H) 40 - 150 U/L [facility] AST 57 (H) 5 - 34 U/L [facility] ALT 46 6 - 55 U/L [facility] Specimen Blood Narrative Performed At Computer Meteorologist ID - PIAYA L [facility] Performing Organization Address [facility] Ph one Number [place] [address] [facility] * Transfuse plasma (05/14/2020 2:35 AM CDT) Only the most recent of 2 results within the time period is included. * Type and screen, automated (05/13/2020 3:23 PM CDT) ABO/RH AUTOMATED (BEAKER) O POSITIVE [facility] Ab Scrn NEGATIVE [facility] Specimen Blood Performing Organization Address [facility] [place] [address] MEDICAL CENTER * Troponin I (05/13/2020 5:45 AM CDT) Only the most recent of 2 results within the time period is included. Troponin I 0.21 () 0.00 - 0.03 ng/mL [facility] Specimen Blood Narrative Performed At Troponin I (TnI) levels must be interpreted in the co ntext of the presenting [facility] symptoms and the clinical findings. Elevated TnI leve ls indicate myocardial [facility] damage, but are not specific for ischem ic heart disease. Elevated TnI levels are seen in patients with other cardiac con ditions (including myocarditis and congestive heart failure), and slight T nI elevations occur in patients with other conditions, including sepsis, sharan al failure, acidosis, acute neurological disease, and persistent tachyarrhythmia . Computer Meteorologist ID - NATALY Whitlock Performing Organization Address [facility] one Number [address] [facility] * Hemoglobin A1c (05/13/2020 5:45 AM CDT) Hemoglobin A1C 5.2 4.3 - 6.1 % [facility] Specimen Blood Performing Organization Address [facility] one Number [address] 0 [phone] [place] [address] * XR chest 1 view portable / bedside (05/12/2020 3:26 PM CDT) Specimen Narrative Performed At FINAL REPORT GE RIS EXAM: Chest one view COMPARISON: December 15, 2019 CLINICAL HISTORY: Dyspnea FINDINGS: There is interval development of airway opacities in the right lung base, this may represent ate lectasis versus consolidation. The cardiac size is within normal limit s. There is no evidence of pleural effusion or pneumothorax. The r egional osseous structures are unremarkable. Signed: Jacques Dotson MD Report Verified Date/Time: 0 15:59:03 Reading Location: [address] Reading Room Procedure Note Interface, External Ris In - 05/12/2020 4:01 PM CDT FINAL REPORT EXAM: Chest one view COMPARISON: December 15, 2019 CLINICAL HISTORY: Dyspnea FINDINGS: There is interval development of airway opacities in the right lung base, this may represent atelectasis versus consolidation. The cardiac size is within normal limits. There is no evidence of pleural effusion or pneumothorax. The regional osseous structures are unremarkable. Signed: Jacques Dotson MD Report Verified Date/Time: 05/12/2020 15:59:03 Reading Location: [address] Transitional Reading Room Performing Organization Address [facility] one Number GE RIS * HEMODIALYSIS INPATIENT (05/12/2020 3:24 PM CDT) Narrative Performed At Tanner Manjarrez III, MD 0203:25 PM [facility] Nephrology Service 05/12/2020 I have personally seen and examined Anu bola Robles on hemodialysis Indication : ESRD Prescription: F160, 3-4 hrs, 2.0K, 2.5 Ca, UF 2-3 L as cristian Reason for exam: BP fluctuation & adjus t dry weight Tolerating dialysis ok Tanner Manjarrez III, MD 05/12/2020 * Procalcitonin (05/12/2020 1:40 PM CDT) Procalcitonin 3.02 (H) <0.05 ng/mL [facility] Specimen Blood Narrative Performed At SEPSIS RISK (ng/mL) [facility] Low:0.05-0.50 [facility] Intermediate: 0.51-2.00 High: >=2.01 Performing Organization Address [facility] Ph one Number [place] [address] [facility] * Hepatitis B surface antigen (05/12/2020 12:25 PM CDT) Only the most recent of 2 results within the time period is included. HBsAg Screen Nonreactive Nonreactive [facility] Specimen Blood Narrative Performed At Specimen is considered negative for HBsAg. [facility] Performing Organization Address [facility] Ph one Number [address] [facility] * Clostridium difficile [facility] Toxin (05/12/2020 2:53 AM CDT) C. Difficle Toxin Negative Negative [facility] C. Difficile GD Antigen NegativeComment: No indication Negat kasi [facility] of Clostridium difficile [facility] infection and no colonization. Discontinue enteric isolation and therapy. Specimen Stool Narrative Performed At Testing performed by [employer] Rapid Cassette Assay.F or GDH, published [facility] sensitivity of the assay is 98.7% marlena red to cytotoxicity testing.For Toxin [facility], published sensitivity is 87.8% and specificity 99.4% compared to cytotoxicity testing. Verification of kit performance was don e by the [facility] Microbiology Lab prior to clinical use. Performing Organization Address [facility] one Number [place] [address] [phone] [place] [address] * STOOL PATH CHARGE (05/12/2020 2:52 AM CDT) Pathogen exam charged Done [facility] Specimen Stool Performing Organization Address City/[facility] one Number [address] [facility] * Shiga Toxin Screen (05/12/2020 2:52 AM CDT) Shiga toxin 1 Not detected Not detected [facility] Shiga toxin 2 Not detected Not detected [facility] Specimen Stool Performing Organization Address [facility] Ph one Number [address] [facility] * Fecal leukocytes (05/12/2020 2:52 AM CDT) Fecal Leukocytes <1+ Fecal leukocytes seen (A) No fecal leuko cytes seen [facility] Specimen Stool Performing Organization Address [facility] one Number [facility] [address] [place], [place] [address] [facility] * Stool culture + Shiga toxin (05/12/2020 2:52 AM CDT) Result No Salmonella, Shigella or [facility] Campylobacter isolated [facility] Specimen Stool Performing Organization Address [facility] one Number [facility] [address] [place], [place] [address] [facility] * ECG 12 lead (05/12/2020 2:36 AM CDT) Specimen Narrative Performed At Ventricular Rate 76 BPM GE MUSE Atrial Rate 76 BPM P-R Interval 298 ms QRS Duration 124 ms Q-T Interval 462 ms QTC Calculation(Bazett) 519 ms P [place] 44 degrees R [place] -25 degrees T [place] 23 degrees Sinus rhythm with 1st degree A-V block Non-specific intra-ventricular conducti on delay Nonspecific ST abnormality Prolonged QT When compared with ECG of 11-DEC-2015 1 1:11, AL interval has increased QRS duration has increased T wave inversion now evident in Anterio r leads QT has lengthened Confirmed by MD SHARLA, NADINE ([id number] ) on 05/14/2020 6:32:55 AM Procedure Note Interface, External Ris In - 05/14/2020 6:33 AM CDT Ventricular Rate 76 BPM Atrial Rate 76 BPM P-R Interval 298 ms QRS Duration 124 ms Q-T Interval 462 ms QTC Calculation(Bazett) 519 ms P [place] 44 degrees R [place] -25 degrees T [place] 23 degrees Sinus rhythm with 1st degree A-V block Non-specific intra-ventricular conduction delay Nonspecific ST abnormality Prolonged QT When compared with ECG of 11-DEC-2015 11:11, AL interval has increased QRS duration has increased T wave inversion now evident in Anterior leads QT has lengthened Confirmed by MD SHARLA, NADINE ([id number]) on 05/14/2020 6:32:55 AM Performing Organization Address [facility] one Number GE MUSE * Manual Differential (05/12/2020 1:39 AM CDT) % Neutros 96 % [facility] % Lymphs 3 % [facility] % Baso 1 % [facility] # Neutros 4.70 1.78 - 5.38 K/ul [facility] # Lymphs 0.15 (L) 1.32 - 3.57 K/ul [facility] # Baso 0.05 0.01 - 0.08 K/uL [facility] Total Counted 100 [facility] WBC Morphology Normal [facility] Platelet Morphology Normal [facility] Polychromasia 1+ few [facility] Anisocytosis 2+ moderate [facility] Microcytes 1+ few [facility] Macrocytes 2+ moderate [facility] Poikilocytes 2+ moderate [facility] Ovalocytes 2+ moderate [facility] Tear Drop Cells 1+ few [facility] Artifact Present [facility] Platelet Conc Decreased [facility] Specimen Blood Narrative Performed At Computer Meteorologist ID - IssaJam Vicente [facility] User comments: [facility] Slide comments: Performing Organization Address City/State/Zipcode Ph one Number [address] 7[address] MED[facility]ENTER * Ammonia (05/12/2020 1:38 AM CDT) Ammonia 33 18 - 72 mol/L [facility] Specimen Blood Narrative Performed At Computer Meteorologist ID - VANESSA Rodríguez [facility] Performing Organization Address City/[facility] Ph one Number [address] [place] [address] [facility] * SARS-CoV2/RT-PCR (Symptomatic ONLY) (05/12/2020 12:08 AM CDT) SARS-COV2/RT-PCR Detected (AA) Not Detected, Negative [facility] SARS-COV-[address] [facility] Specimen Other Narrative Performed At Results are for the detection of SARS-C oV-2 RNA. The SARS-CoV-2 RNA is generally [facility] detectable in nasopharyngeal swab speci mens during the acute phase of infection. [facility] Positive results are indicative of acti ve infection with SARS-CoV-2; clinical correlation with patient history and ot her diagnostic information is necessary to determine patient infection status. Positive results do not rule out bacterial infection or co-infection wit h other viruses. The agent detected may not be the definite cause of disease. The limit of detection for this assay i s 250 copies/mL. This SARS CoV-2 test is a rapid, real-t miguelina RT-PCR test intended for the qualitative detection of nucleic acid f rom SARS-CoV-2 in a nasopharyngeal swab specimen collected from individuals low pected of COVID-19 by their healthcare provider. This test has not been Food and Drug Ad ministration (FDA) cleared or approved and has been authorized by FDA under an Emergency Use Authorization (EUA). This EUA will be effective until the declara tion that circumstances exist justifying the authorization of the emergency use of in vitro diagnostic tests for detection and/or diagnosis of COVID-19 is terminated under Section 564(b)(2) of the Act or the EUA is revoked under Sec tion 564(g) of the Act. Fact Sheet for Healthcare Providers: https://www.ADEA Cutters.Handmark/Documents/Xpert%20Xpress%20SARS%20CoV-2/Fact%20Sheets/30 2-3802%77JNEL-JVE-9%20HEALTHCARE%20PROV IDERS%20FACT%20SHEET.pdf Fact Sheet for Healthcare Patients: https://www.[employer].Handmark/Documents/Xpert%20Xpress%20SARS%20CoV-2/Fact%20Sheets/30 2-3801%16NHSJ-CKG-4%20PATIENT%20FACT%20 SHEET.pdf Performing Laboratory: [address] [address] Performing Organization Address [facility] one Sandi [address] [facility] * D-dimer (05/12/2020 12:04 AM CDT) D-Dimer, Quant 6.40 (H) <0.50 MG/L FEU [facility] Specimen Blood Narrative Performed At Intended Use: The D-Dimer Assay can be used to aid in the diagnosis of Deep Vein [facility] Thrombosis (DVT) and Pulmonary Embolism Disease (PED) . [facility] In patients with low pre-test probabili ty, various studies concerning STA Liatest D-dimer test have reported that with a cutoff value of 0.50 MG/L FEU, the Negative Predictive Value (NPV) reg arding the exclusion of thrombosis is within 95-100% range. Performing Organization Address [facility] one [address] [facility] * Lactate dehydrogenase (LDH) (05/12/2020 12:04 AM CDT) LDH 548 (H) 125 - 220 U/L [facility] Specimen Blood Narrative Performed At Computer Meteorologist ID - VANESSA Rodríguez [facility] Performing Organization Address [facility] one [address] [facility] * Blood Culture - Routine (Right Venipuncture) (05/12/2020 12:03 AM CDT) Result No growth in [address] [facility] Specimen Blood Performing Organization Address [facility] Ph one [address] [facility] * Alpha fetoprotein (AFP), tumor marker (01/24/2020 10:21 AM CDT) Only the most recent of 2 results within the time period is included. Alpha-Fetoprotein 3.7 <10.0 ng/mL [facility] Specimen Blood Narrative Performed At Computer Meteorologist ID - MARTITA Dominguez [facility] Performing Organization Address City/[facility] Ph one Number [facility] [address] [place], [place] [address] [facility] * PLATELET ESTIMATION (01/03/2020 1:02 PM MEDICAL ANTHROPOLOGY DIRECTOR) Platelet Estimate DECREASED (A) [facility] Specimen Narrative Performed At FASTING:NO [facility] FASTING: NO Resulting Agency Comment Performing Organization Information: Site ID: RGA Name: [facility] Address: [address] [place] [id number] Director: Oliverio Martinez Performing Organization Address City/[facility] Ph one Number [facility] [address] [place] [phone] [facility] * XR chest 2 views (12/15/2019 8:24 AM MEDICAL ANTHROPOLOGY DIRECTOR) Specimen Narrative Performed At FINAL REPORT GE RIS TECHNIQUE: Frontal and lateral views of the chest. INDICATION: 49-year-old man for liver a nd renal transplant evaluation. COMPARISON: Chest radiographs 11/13/2015. FINDINGS: LINES/TUBES: None. LUNGS: The lungs are well inflated. No consolidation or pulmonary edema. PLEURA: No pleural effusion or pneumoth orax. HEART AND MEDIASTINUM: Mildly prominent cardiac silhouette. Atherosclerotic calcifications in the t horacic aorta. SOFT TISSUES AND BONES: Unremarkable. IMPRESSION: No acute pulmonary abnormalities. Mildly prominent cardiac silhouette. Signed: Tasha Ram MD Report Verified Date/Time: 0 09:15:11 Reading Location: [address] [facility] Procedure Note Interface, External Ris In - 12/15/2019 9:17 AM MEDICAL ANTHROPOLOGY DIRECTOR FINAL REPORT TECHNIQUE: Frontal and lateral views of the chest. INDICATION: 49-year-old man for liver and renal transplant evaluation. COMPARISON: Chest radiographs 11/13/2015. FINDINGS: LINES/TUBES: None. LUNGS: The lungs are well inflated. No consolidation or pulmonary edema. PLEURA: No pleural effusion or pneumothorax. HEART AND MEDIASTINUM: Mildly prominent cardiac silhouette. Atherosclerotic calcifications in the thoracic aorta. SOFT TISSUES AND BONES: Unremarkable. IMPRESSION: No acute pulmonary abnormalities. Mildly prominent cardiac silhouette. Signed: Tasha Ram MD Report Verified Date/Time: 12/15/2019 09:15:11 Reading Location: [address] Radiology Reading Room Performing Organization Address City/[facility] Ph one Number GE RIS * Hepatitis A antibody, IgG (12/15/2019 7:31 AM MEDICAL ANTHROPOLOGY DIRECTOR) Hep A IgG Reactive (A) Nonreactive [facility] Specimen Blood Narrative Performed At Computer Meteorologist ID [facility] Performing Organization Address [facility] one Number [place] [address] [facility] * T Spot TB (12/15/2019 7:31 AM MEDICAL ANTHROPOLOGY DIRECTOR) T-Spot TB Negative [facility] Neg Ctrl Spot Count 0 [facility] Panel A Spot 0 [facility] Panel B Spot 0 [facility] Pos Ctrl Spot Ct 0 [facility] Scan Result [facility] Specimen Blood Narrative Performed At This result has an attachment that is n ot available. Performing Organization Address [facility] Ph one Number [facility], [place] [address] LABORATORIES 100 * HIV-1 Antigen with HIV-1/2 Antibody (12/15/2019 7:31 AM MEDICAL ANTHROPOLOGY DIRECTOR) HIV-1 Antigen with HIV Nonreactive Nonreactive [facility] 1&2 Antibody [facility] Specimen Blood Narrative Performed At Computer Meteorologist [facility] Performing Organization Address [facility] Ph one Number [place] [phone] [facility] * Hepatitis C antibody (12/15/2019 7:31 AM MEDICAL ANTHROPOLOGY DIRECTOR) Hepatitis C Ab Nonreactive Nonreactive [facility] Specimen Blood Narrative Performed At Computer Meteorologist ID - LM [facility] Performing Organization Address City/[facility] Ph one Number [address] [facility] * Cryptococcal antigen (12/15/2019 7:31 AM MEDICAL ANTHROPOLOGY DIRECTOR) Cryptococcal Antigen, Negative Negative, Interference [facility] Specimen Blood Performing Organization Address [facility] one Number [address] [facility] * Rubeola antibody IgG (12/15/2019 7:31 AM MEDICAL ANTHROPOLOGY DIRECTOR) Rubeola Ab, Igg 91.30 AU/mL [facility] Comment: INCORPORATED REFERENCE RANGE:<13.50AU/mL AU/mL Interpretation <13.50 Negati ve 13.50-16.49 Equivocal >16.49 Positi ve A positive result indicates that the patient has antibody to measles virus. It does not differentiate between an active or past infection. The clinical diagnosis must be interpreted in conjunction with clinical signs and symptoms of the patient. For additional information, please refer to http://education.KeriCure.Handmark/faq/AWU991 (This link is being provided for informational/ educational purposes only.) Specimen Blood Narrative Performed At Performing Lab [facility] *[employer] [facility] Infectious D [employer] [address] [place] [address] Efrain Ferguson MD Performing Organization Address City/[facility] Ph one Number [facility] [address] [place], [place] INCORPORATED [facility] [address] * Hepatitis B core antibody, IgM (12/15/2019 7:31 AM MEDICAL ANTHROPOLOGY DIRECTOR) Hep B C IgM Nonreactive Nonreactive [facility] Specimen Blood Narrative Performed At Computer Meteorologist ID - [facility] Performing Organization Address [facility] one [address] [facility] * Hepatitis B core antibody, total (12/15/2019 7:31 AM MEDICAL ANTHROPOLOGY DIRECTOR) Hep B Core Total Ab Nonreactive Nonreactive [facility] Specimen Blood Narrative Performed At Computer Meteorologist ID - [facility] Performing Organization Address [facility] one [address] 0 [phone] [place] [address] * Rubella antibody, IgG (12/15/2019 7:31 AM MEDICAL ANTHROPOLOGY DIRECTOR) Rubella IgG Quant 47.0 (H) <8.0 IU/mL [facility] Specimen Blood Narrative Performed At Rubella IgG Result Interpretation: [facility] LT </= 7.0 IU/mL Negative - Presumed non-immune [facility] 8.0 - 9.9 IU/mL Equivocal >= 10.0 IU/mL Positive - Presum ed immune Performing Organization Address [facility] one [address] 0 [phone] [place] [address] * RPR (12/15/2019 7:31 AM MEDICAL ANTHROPOLOGY DIRECTOR) RPR Nonreactive Nonreactive [facility] Specimen Blood Performing Organization Address [facility] one [address] 0 [phone] [place] [address] * Hepatitis B surface antibody (12/15/2019 7:31 AM MEDICAL ANTHROPOLOGY DIRECTOR) Hep B S Ab 173.8 (H) <8.0 mIU/mL [facility] Specimen Blood Narrative Performed At Computer Meteorologist ID - LM [facility] Performing Organization Address [facility] Ph one Number [facility] [address] [place] [address] 0 [phone] [place] [address] * Varicella zoster antibody, IgG (12/15/2019 7:31 AM MEDICAL ANTHROPOLOGY DIRECTOR) Varicella IgG 4.7 [facility] Specimen Blood Narrative Performed At VARICELLA ZOSTER RESULT INTERPRETATIONS: [facility] <=0.8 AlNo nreactive:Presumed non-immune to VZV [facility] 0.9-1.0 AlEqui vocal >=1.1 AlRe active:Presumed immune to VZV Performing Organization Address [facility] one Number [facility] [address] [place] [address] [facility] * Mumps antibody, IgG (12/15/2019 7:31 AM MEDICAL ANTHROPOLOGY DIRECTOR) Mumps Ab Igg 141.00 AU/mL [facility] Comment: INCORPORATED REFERENCE RANGE: <9.00 AU/mLI nterpretation <9.00N egative 9.00-10.99 Equivocal >10.99 Positive A positive result indicates that the patient has antibody to mumps virus. It does not differentiate between an active or past infection.The clinical diagnosis must be interpreted in conjunction with clinical signs and symptoms of the patient. Specimen Blood Narrative Performed At Performing Lab [facility] *[employer] [facility] Infectious D [employer] [address] [place] [address] Efrain Ferguson MD Performing Organization Address [facility] one Number [facility], [address] [place], [place] INCORPORATED [facility] [address] * US abdomen complete (09/20/2019 9:58 AM MEDICAL ANTHROPOLOGY DIRECTOR) Specimen Narrative Performed At FINAL REPORT [employer] Abdominal ultrasound Clinical History:Cirrhosis, HCC scr eening Comparison: CT from 02/01/2019 abdominal ultrasound from 11/13/2015 Findings: Sonographic evaluation of the the abdom en is performed. The pancreas is not well-visualized sec ondary to adjacent bowel gas. The visualized portion appears unremark able. The liver is enlarged measuring 20.6 cm in length and demonstrates a nodular contour compatible with patient 's history of cirrhosis. No focal hepatic lesion is identified. The main portal vein is patent with antegrade flow and diameter of 1.9 cm. The gallbladder is unremarkable. There is no evidence for cholelithiasis, gallbladder wall thickening, or pericholecystic flu id. There is no intra or extrahepatic biliary ductal dilatation. The common bile duct measures 5 mm. Sonographic Caraballo sign is negati ve. The spleen is enlarged measuring 17.5 c m in length but otherwise demonstrates an unremarkable sonographi c appearance. The right kidney is decreased in size m easuring 8.4 cm in length with cortical thickness of 1.0 cm. The left kidney measures 10.7 cm in length with cortical thickness of 1.1 c m. Cortical echogenicity is mildly increased. There is no evidence for solid renal mass, hydronephrosis, or shadowing calculi. The visualized portions of the IVC and aorta are within normal limits. There is no ascites or pleural fluid vi sualized. Impression: 1. Sonographic findings suggestive of o f cirrhosis and sequela of portal hypertension. No focal hepatic a bnormality is identified. 2. Findings suggestive of chronic medic al renal disease. Signed: William Kowalski MD Report Verified Date/Time: 10:09:17 Reading Location: [address] Reading Room Procedure Note Interface, External Ris In - 09/20/2019 10:11 AM MEDICAL ANTHROPOLOGY DIRECTOR FINAL REPORT Abdominal ultrasound Clinical History: Cirrhosis, HCC screening Comparison: CT from 02/01/2019 abdominal ultrasound from 11/13/2015 Findings: Sonographic evaluation of the the abdomen is performed. The pancreas is not well-visualized secondary to adjacent bowel gas. The visualized portion appears unremarkable. The liver is enlarged measuring 20.6 cm in length and demonstrates a nodular contour compatible with patient's history of cirrhosis. No focal hepatic lesion is identified. The main portal vein is patent with antegrade flow and diameter of 1.9 cm. The gallbladder is unremarkable. There is no evidence for cholelithiasis, gallbladder wall thickening, or pericholecystic fluid. There is no intra or extrahepatic biliary ductal dilatation. The common bile duct measures 5 mm. Sonographic Caraballo sign is negativ e. The spleen is enlarged measuring 17.5 cm in length but otherwise demonstrates an unremarkable sonographic appearance. The right kidney is decreased in size measuring 8.4 cm in length with cortical thickness of 1.0 cm. The left kidney measures 10.7 cm in length with cortical thickness of 1.1 cm. Cortical echogenicity is mildly increased. There is no evidence for solid renal mass, hydronephrosis, or shadowing calculi. The visualized portions of the IVC and aorta are within normal limits. There is no ascites or pleural fluid visualized. Impression: 1. Sonographic findings suggestive of of cirrhosis and sequela of portal hypertension. No focal hepatic abnormality is identified. 2. Findings suggestive of chronic medica l renal disease. Signed: William Kowalski MD Report Verified Date/Time: 09/20/2019 10:09:17 Reading Location: [address] Radiology Reading Room Performing Organization Address City/State/Zipcode Ph one Number GE RIS after 06/10/2019 Insurance Payer Benefit Subscriber ID Type Phone Address Plan / Group [facility] xxxxxxxxx MEDICARE MGD CARE MEDICARE HMO MEDICAID - MEDICAID MGD [facility] xxxxxxxxx Medica id CARE COMM STAR Contracted PLAN [facility] xxxxxxxxx Trans plant MEDICARE MGD CARE [facility] ONLY MCR REPL CDC REVIEW CDC REVIEW xxxxxxxx [address] [place] [phone] Advance Directives Patient has advance care planning documents, and code status on file. For more i nformation, please contact: [facility] [address] [place] [address] Date Inactivated Comments Code Status Date Activated 05/17/2020 3:37 AM Full Code 05/11/2020 11:02 PM This code status was determined by: Patient 03/05/2016 8:04 AM Full Code 03/04/2016 6:39 PM This code status was determined by: Patient
--- OUTSIDE RECORDS SUMMARY | 2020-06-10 22:49 | XMS REPORT | Continuity of Care Document ---
Author Author [facility] t Organization [facility] Address [address] [place] [address] Phone Unavailable Care Team Providers Care Program Strategist Name Role Phone NO, PCP PCP Unavailable Brenda Saunders Attphys Unavailable Kenyatta Reyes RN Attphys Unavailable Mabel Betancourt Attphys Unavailable Joey [place], Ant Bedolla Attphys [phone] [place], Venkatesh Attphys [place]sol [place], Rocio Barney Attphys [phone] Cristobal [place], Nehemias Schmid Attphys Michelet WILBURN, Madeline Attphys Unavailable ANT SWARTZ Attphys Unavailable AUSTEN WANG Attphys Unavailable Avelino Navarro Attphys Unavailable Lindsey Stringer Attphys Unavailable Devonte [place], Mellissa Mosquera Attphys [phone] Bayron SAP BPC ARCHITECT, M Warren Attphys Unavailable Lewis [place] MPH, Jessica Bardales Attphys [phone] MELLISSA KUMAR Attphys Unavailable Kevin SAP BPC ARCHITECT, L Adilia Attphys Unavailable Jonny RN, Elizabeth George Attphys Unavailable Cass [place], Nury Brewer Attphys NURY VAZQUEZ Attphys Unavailable Pcp, No Attphys Unavailable Zen RN, Aime Attphys Unavailable Gisele RN, Nargis Attphys Unavailable SYLVESTER AMATO Attphys Unavailable Catina LUTZ Attphys Unavailable Miguel WILBURN, Ewa Attphys Unavailable Varinder AGGARWAL Attphys Unavailable Claudia [place], Varinder Hoang Attphys ODONNELL, SOUHEIL Attphys Unavailable SONA WHARTON Attphys Unavailable FLOR ALONSO Attphys Unavailable Lamont SANTOS Attphys Unavailable Ezeanuna, U [place] Attphys Unavailable FELIPE LAZAR Attphys Unavailable Brendan Mireles Attphys Unavailable Ning DURANT Attphys Unavailable MELANIE, NOORJIBHAI SALIM Attphys Unavailable Mccallum, Dax-Shing Attphys Unavailable Sol VILLELA Attphys Unavailable Sol WATSON Attphys Unavailable PARSI, E WILSON Attphys Unavailable JAGADEESHAN, COTO VINAYA Attphys Unavailable Leatha, Keely Attphys Unavailable Sabrusula, Festus Attphys Unavailable JOSÉ MIGUEL GARCIA Attphys Unavailable CRISTOBAL, NEHEMIAS SCHMID Admphys Unavailable AUSTEN WANG Admphys Unavailable ODONNELL, SOUHEIL Admphys Unavailable Ezeanuna, U [place] Admphys Unavailable MELANIE, NOORJIBHAI SALIM Admphys Unavailable Mccallum, Dax-Shing Admphys Unavailable PARSI, E WILSON Admphys Unavailable JAGADEESHAN, COTO VINAYA Admphys Unavailable Leatha, Keely Admphys Unavailable Sabrusula, Festus Admphys Unavailable Payers Payer Name Policy Type Policy Number Effective Date Expiration Date S casandra [facility] - MEDICARE MGD CAREUNITED MEDICARE HMOxxxxxxxxx xxxxxxxxx [facility] MEDICAID - MEDICAID MGD CAREMCD COMM STAR PLANxxxxxxxxxMe dicaid Contracted xxxxxxxxx [facility] NETWK - MEDICARE MGD [place] REOPTUM [facility] MCR REPLxxxxxxxxxTransplants xxxxxxxxx [facility] CDC REVIEWCDC [place]VIEWxxxxxxxx[place] [address] [facility] [id number] 2019 00:00:00 [facility] [id number] 2019 00:00 :00 [facility] Medicare A & B [id number] 2015 00:00:00 [facility] Problems Condition Name Condition Details Condition Category Status Onset Date Resolution Date Last Treatment Date Treating Clinician Comments Source Dyspnea Dyspnea Disease Active 2020-05-11 00:00:00 [facility] Foot abscess Foot abscess Disease Active 2017-04-09 00:00:00 [facility] Awaiting organ transplant status Awaiting organ transplant statu s Disease Active 2017-01-26 00:00:00 [facility] Pre-transplant evaluation for chronic liver disease Pr e-transplant evaluation for chronic liver disease Disease Active 2016-05-01 00:00:00 Last Assessment & Plan: He is an acceptable candidate for liver transplant. He will continue with further necessary imaging as indicated for liver transplant. [facility] Cancer screening Cancer screening Disease Active 2016-03-26 00:00:00 [facility] Cirrhosis of liver Cirrhosis of liver Disease Active 2016-03-20 00:00:0 0 Last Assessment & Plan: Cirrhosis diagnosis confirmed by liver biopsy. Likely etiology is NAFLD. MELD 21. [facility] Elevated liver enzymes Elevated liver enzymes Disease Active 2016-02-14 00:00:00 Last Assessment & Plan: Patient has mixed [...] the liver biopsy. Patient wishes to proceed. [facility] ESRD (end stage renal disease) on dialysis ESRD (end s tage renal disease) on dialysis Disease Active 2016-02-14 00:00:00 Last Assessment & Plan: ESRD secondary to diabetes. He is on HD since 06/2015 on MWF schedule. Will need a liver/kidney transplant combination. [facility] HTN (hypertension) HTN (hypertension) Disease Active 2016-02-14 00:00:0 0 Last Assessment & Plan: BP controlled on current regimen. 2 gram sodium diet restrictions reviewed. 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 [facility] Diabetes mellitus type 2 in obese Diabetes mellitus type 2 in ob florencia Disease Active 2016-02-14 00:00:00 Last Ass essment & Plan: Diabetes complicated by ESRD, diabetic foot. Diabetes is a risk factor for fatty liver. Strict diabetes control is recommended. Used to be on insulin, not anymore since ESRD. Continue follow up with PCP. [facility] NAFLD (nonalcoholic fatty liver disease) NAFLD (nonalc oholic fatty liver disease) Disease Active 2016-02-14 00:00:00 Last Assessment & Plan: NAFLD suspected based on laboratory data, risk factors for fatty liver and significant family history for fatty liver disease. Risk factor for NAFLD is obesity, diabetes and family history. Strict risk factor modification discussed with the patient. [facility] Pre-transplant evaluation for kidney transplant Pre-tr ansplant evaluation for kidney transplant Disease Active 2016-02-14 00:00:00 Last Assessment & Plan: Patient currently undergoing kidney transplant evaluation. He was referred to hepatology clinic for elevated liver enzyme. Transjugular liver biopsy with measurement of portal hemodynamics is recommended. Further recommendations will follow. [facility] Obesity Obesity Disease Active 2016-02-14 00:00:00 Last Assessment & Plan: Body mass index is 32.91 kg/(m^2). Obesity is a risk factor for fatty liver. We recommended a 10% weight loss, which disproportionately decreases visceral fat and can improve hepatic steatosis and steatohepatitis. We recommended a modified Ariadna's diet, substituting vegetables for wheat, corn, potato or rice or foods made from the flours of these carbohydrates. Literature provided. [facility] Abnormal liver enzymes Abnormal liver enzymes Disease Active 2016-02-14 00:00:00 [facility] Abnormal liver diagnostic imaging Abnormal liver diagnostic imag ing Disease Active 2016-02-14 00:00:00 Last Ass essment & Plan: US showed normal liver, splenomegaly and no ascites. Patient platelet count is on low normal side. This can be seen in early cirrhosis. A CT scan with triple phase liver protocol for further work up is recommended. [facility] Weakness Problem Active [facility] Malaise and fatigue Problem Active [facility] Diarrhea Problem Active [facility] Pneumonia Problem Active [facility] Decompensated hepatic cirrhosis Decompensated hepatic cirrhosis Dis ease Active [facility] Portal hypertension Portal hypertension Disease Active [facility] Obesity, Class II, BMI 35-39.9 Obesity, Class II, BMI 35-39.9 Disease Active [facility] ESRD on hemodialysis ESRD on hemodialysis Disease Active [facility] Allergies, Adverse Reactions, Alerts Allergy Name Allergy Type Status Severity Reaction(s) Onset Date Inacti ve Date Treating Clinician Comments Source morphine DA Active U 2020-05-07 00:00:00 [facility] hydrocodone DA Active U 2020-05-07 00:00:00 [facility] acetaminophen DA Active U 2020-05-07 00:00:00 [facility] morphine DA Active U 2020-04-19 00:00:00 [facility] hydrocodone DA Active U 2020-04-19 00:00:00 [facility] acetaminophen DA Active U 2020-04-19 00:00:00 [facility] Morphine Propensity to adverse reactions Active Mild "LOS E MY MIND" 2019-11-22 00:00:00 [facility] Hydrocodone Propensity to adverse reactions Active NAUSEA 2019-11-22 00:00:00 [facility] hydrocodone DA Active U 2019-07-13 00:00:00 [facility] acetaminophen DA Active U 2019-07-13 00:00:00 [facility] Morphine Propensity to adverse reactions Active Nausea And Vomiting, Other (See Comments) 2018-05-25 00:00:00 Combative after symone ing morphine [facility] hydrocodone DA Active U 2016-10-08 00:00:00 [facility] acetaminophen DA Active U 2016-10-08 00:00:00 [facility] Hydrocodone-Acetaminophen Drug Intolerance Active Naus ea And Vomiting 2012-05-26 00:00:00 [facility] Family History Family Member Diagnosis Comments Start Date Stop Date Source Natural father Diabetes [facility] Natural father Heart disease [facility] Natural father Kidney disease [facility] Natural mother Diabetes [facility] Natural mother Heart disease [facility] Natural mother Liver disease [facility] Natural sister Diabetes [facility] Social History Social Habit Start Date Stop Date Quantity Comments Source History of tobacco use Current smoker [facility] Sex Assigned At [facility] Alcohol Comment 2019-07-26 00:00:00 2019-07-26 00:00:00 quit tarun camacho in 2014; prior to that he used to drink during the weekends (2-5 drinks) [facility] Smoking Status Start Date Stop Date Source Former smoker 2020-01-24 00:00:00 2020-01-24 00:00:00 [facility] Medications Ordered Medication Name Filled Medication Name Start Date Stop Da te Current Medication? Ordering Clinician Indication Dosage Frequency Signature (SIG) Comments Components Source dexAMETHasone (DECADRON) 6 MG tablet 2020-05-17 00:00: 00 2020-05-23 23:59:00 No 6mg QD Take 1 tablet (6 mg total) by mouth go y for 6 days. [facility] calcium carbonate (TUMS) 500 mg chewable tablet 2020-01-24 08:58 :18 Yes 3{tbl} QD Take 3 tablets by mouth daily . [facility] glucometer (FREESTYLE) Misc 2019-10-18 00:00:00 Yes [facility] Prednisone Prednisone 2019-09-07 18:05:00 Yes 60 Ally ly [facility] aspirin-calcium carbonate 81 mg-300 mg calcium(777 mg) Tab 2019-07-26 10:32:18 2019-07-26 00:00:00 No 81mg Take 81 mg by mout h. [facility] ranitidine (ZANTAC) 150 MG tablet 2019-07-26 09:49:45 2018 00:00:00 No 150mg QD Take 150 mg by mouth nightly. [facility] fluticasone-vilanterol (BREO ELLIPTA) 100-25 mcg/dose DsDv 2019-02-01 10:35:26 Yes 1{puff} QD Inhale 1 puff by mouth via inh aler daily. [facility] folic acid-multivitamins (B COMPLEX-VITAMIN C-FOLIC ACID) 0. 8 mg Tab tablet 2019-02-01 10:35:26 Yes 1{tbl} QD Take 1 tablet by m out daily. [facility] famotidine (PEPCID) 20 MG tablet 2018-11-30 00:00:00 Yes 20mg Take 20 mg by mouth once at bedtime . [facility] levocetirizine (XYZAL) 5 MG tablet 2018-11-30 00:00:00 201 07-18-17 00:00:00 No Take by mouth. [facility] amLODIPine (NORVASC) 10 MG tablet 2018-07-05 00:00:00 Yes 10mg QD Take 10 mg by mouth daily . [facility] fluticasone (FLONASE) 50 mcg/actuation nasal spray 2018-06 00:00:00 Yes 1{spray} 1 spray by Nasal route as needed . [facility] esomeprazole (NEXIUM) 40 MG capsule 2018-07-05 00:00:00 Yes 40mg QD Take 40 mg by mouth daily . [facility] albuterol HFA (VENTOLIN HFA) 90 mcg/actuation inhaler 2018-07-05 00:00:00 Yes 1{puff} Inhale 1 puff b y mouth via inhaler every 6 (six) hours as needed . [facility] cholecalciferol (VITAMIN D3) 1,000 unit tablet 2018-07-05 00:00: 00 Yes 1000U QD Take 1,000 Units by mouth daily . [facility] loratadine 10 mg Cap 2018-07-05 00:00:00 Yes QD Take by mouth daily . [facility] 81 MG chewable tablet 2018-07-05 00:00:00 2019-07-26 00: 00:00 No 81mg QD Take 81 mg by mouth daily . [facility] aspirin 81 MG EC tablet 2018-05-25 11:20:19 Yes Awaiting organ transplant status 81mg QD Take 81 mg by mouth daily. [facility] sevelamer (RENVELA) 800 mg tablet 2018-03-20 00:00:00 Yes 3200mg Take 3,200 mg by mouth 3 (three) times daily with meals . [facility] Albuterol Sulfate (Ventolin Hfa) 18 Gm HFA.AER.AD Albu terol Sulfate (Ventolin Hfa) 18 Gm HFA.AER.AD Yes 90 Daily [facility] Amlodipine Besylate Amlodipine Besylate Yes 10 Daily [facility] Aspirin (Aspir 81) 81 Mg TABLET. Aspirin (Aspir 81) 81 Mg TABLET. Yes 81 Daily [facility] Breo Breo Yes 1 Daily [facility] Calcium Carbonate Calcium Carbonate Yes 500 Bedt miguelina [facility] Cholecalciferol (Vitamin D3) (Cholecalciferol) 1 Gm CR YSTALS Cholecalciferol (Vitamin D3) (Cholecalciferol) 1 Gm CRYSTALS Yes 1 Daily [facility] Cyanocobalamin/Fa/Pyridoxine (B Complex-Folic Acid Tab let) 1 Each TABLET Cyanocobalamin/Fa/Pyridoxine (B Complex-Folic Acid Tablet) 1 Each TABLET Yes 1 Daily [facility] Esomeprazole Magnesium (Nexium) 40 Mg CAPSULE.DR Aneesh mayorga Magnesium (Nexium) 40 Mg CAPSULE. Yes 40 Daily [facility] Famotidine Famotidine Yes 20 Bedtime [facility] Flonase Flonase Yes 50 Daily [facility] Levocetirizine Dihydrochloride Levocetirizine Dihydrochloride Yes 5 Daily [facility] Loratadine Loratadine Yes 10 Daily [facility] Sevelamer Hcl (Renagel) 800 Mg TABLET Sevelamer Hcl (Renagel) 800 M g TABLET Yes 800 Three Times A Day [facility] Fluticasone Propionate Fluticasone Propionate 2019-06-23 00:00:00 No 50 Daily [facility] Immunizations Ordered Immunization Name Filled Immunization Name Date Status Comments Source Hepatitis B 2016-08-26 00:00:00 Completed [facility] Hepatitis A 2016-08-26 00:00:00 Completed [facility] Vital Signs Vital Name Observation Time Observation Value Comments Source Systolic blood pressure 2020-05-16 16:15:00 132 mm[Hg] [facility] Diastolic blood pressure 2020-05-16 16:15:00 77 mm[Hg] [facility] Heart rate 2020-05-16 16:15:00 87 /min [facility] Body temperature 2020-05-16 16:15:00 36.28 Claudia [facility] Respiratory rate 2020-05-16 16:15:00 17 /min [facility] Oxygen saturation in Arterial blood by Pulse oximetry 05-16 16:15:00 98 /min [facility] Body weight Measured 2020-05-12 13:30:00 105.2 kg [facility] BMI 2020-05-12 13:30:00 36.32 kg/m2 [facility] Body height 2020-05-11 22:00:00 170.2 cm [facility] Body Temperature 2020-05-11 19:20:00 98.7 [degF] [facility] Weight 2020-05-11 11:00:00 255 [lb_av] [facility] BMI (Body Mass Index) 2020-05-11 11:00:00 39.9 kg/m2 [facility] Procedures Procedure Date / Time Performed Performing Clinician Sourc e BILIRUBIN, DIRECT 2020-06-05 15:17:00 Joan Hoyos [facility] PROTHROMBIN TIME/INR 2020-06-05 15:17:00 Joan Hoyos [facility] CBC W/PLT COUNT & AUTO DIFFERENTIAL 2020-06-05 15:17:[address] [facility] COMPREHENSIVE METABOLIC PANEL 2020-06-05 15:17:00 Joan Hoyos [facility] RHYTHM STRIP - SCAN 2020-05-21 11:42:53 [facility] - [facility]OSCOPY SC[facility] 2020-05-21 11:42:48 Pro vider, Default Scanning [facility] TRANSFUSION SERVICE REPORT - SCAN 2020-05-16 18:00:38 Provid er, Default Scanning [facility] POCT-GLUCOSE METER 2020-05-16 15:50:00 Savita Gregg [facility] RHYTHM STRIP - SCAN 2020-05-16 14:31:00 Provider, Default [facility] HEMODIALYSIS INPATIENT 2020-05-16 12:35:00 Daniel Garza [facility] POCT-GLUCOSE METER 2020-05-16 11:25:00 Savita Gregg [facility] POCT-GLUCOSE METER 2020-05-16 09:09:00 Savita Gregg [facility] COMPREHENSIVE METABOLIC PANEL 2020-05-16 04:51:00 Home Gregg Rocio [facility] C-REACTIVE PROTEIN 2020-05-16 04:51:00 Savita Gregg CH I [facility] MAGNESIUM 2020-05-16 04:51:00 Savita Gregg [facility] PHOSPHORUS 2020-05-16 04:51:00 [facility] W/PLT COUNT & AUTO DIFFERENTIAL 2020-05-16 04:51:00 Marysol [facility] 2020-05-15 23:54:00 Mita [facility] POCT-GLUCOSE METER 2020-05-15 19:51:00 Savita Gregg I [facility] POCT-GLUCOSE METER 2020-05-15 12:39:00 Savita Gregg [facility] BASIC METABOLIC PANEL (7) 2020-05-15 09:11:00 Savita Gregg [facility] MAGNESIUM 2020-05-15 09:11:00 Savita Gregg [facility] PHOSPHORUS 2020-05-15 09:11:00 Marysol Savita [facility] POCT-GLUCOSE METER 2020-05-15 09:03:00 Savita [facility] C-REACTIVE PROTEIN 2020-05-15 03:04:00 Mita [facility] FERRITIN 2020-05-15 03:04:00 Mita [facility] POCT-GLUCOSE METER 2020-05-15 02:56:00 Mita [facility] POCT-GLUCOSE METER 2020-05-14 23:00:00 Mita [facility] TRANSFUSION SERVICE REPORT - SCAN 2020-05-14 18:01:05 Provid er, Default Scanning [facility] POCT-GLUCOSE METER 2020-05-14 17:09:00 Mita [facility] POCT-GLUCOSE METER 2020-05-14 16:42:00 Mita [facility] POCT-GLUCOSE METER 2020-05-14 12:35:00 Mita [facility] HEMODIALYSIS INPATIENT 2020-05-14 12:10:38 Arthur Veliz [facility] POCT-GLUCOSE METER 2020-05-14 07:30:00 Mita [facility] BASIC METABOLIC PANEL (7) 2020-05-14 05:22:00 [facility]obal [facility] 2020-05-14 05:22:00 Sharmaine Jain Georgiatroy janny [facility] PROTHROMBIN TIME/INR 2020-05-14 05:22:00 [facility] C-REACTIVE PROTEIN 2020-05-14 05:22:00 Mita [facility] FERRITIN 2020-05-14 05:22:00 Mita [facility] TRANSFUSE PLASMA 2020-05-14 02:35:34 Mita [facility] POCT-GLUCOSE METER 2020-05-13 22:20:00 Mita [facility] POCT-GLUCOSE METER 2020-05-13 18:23:00 Mita [facility] TYPE AND SCREEN, AUTOMATED 2020-05-13 15:23:00 Venkatesh Fan [facility] POCT-GLUCOSE METER 2020-05-13 11:57:00 Mita [facility] POCT-GLUCOSE METER 2020-05-13 08:29:00 Mita [facility] BASIC METABOLIC PANEL (7) 2020-05-13 05:45:00 Sharmaine Jain Jair rondon [facility] HEPATIC FUNCTION PANEL 2020-05-13 05:45:00 Sharmaine Jain Nevaehantonia janny [facility] PROTHROMBIN TIME/INR 2020-05-13 05:45:00 Mayur [facility] C-REACTIVE PROTEIN 2020-05-13 05:45:00 Mita [facility] FERRITIN 2020-05-13 05:45:00 Mita [facility] HEMOGLOBIN A1C 2020-05-13 05:45:00 Mita [facility] TROPONIN I 2020-05-13 05:45:00 Tony Mccallum [facility] POCT-GLUCOSE METER 2020-05-12 21:51:00 Mita [facility] POCT-GLUCOSE METER 2020-05-12 18:26:00 Mita [facility] XR CHEST 1 VIEW PORTABLE/BEDSIDE 2020-05-12 15:26:00 Sharmaine Jain [facility] HEMODIALYSIS INPATIENT 2020-05-12 15:24:40 Santino Bang [facility] PROCALCITONIN 2020-05-12 13:40:00 Mita [facility] POCT-GLUCOSE METER 2020-05-12 13:39:00 Mita [facility] HEPATITIS B SURFACE ANTIGEN 2020-05-12 12:25:00 Jayda Prather [facility] C-REACTIVE PROTEIN 2020-05-12 10:03:00 Mita [facility] TROPONIN I 2020-05-12 10:03:00 Sharmaine Jain [facility] POCT-GLUCOSE METER 2020-05-12 08:24:00 Mita [facility] POCT-GLUCOSE METER 2020-05-12 02:55:00 Chioma Swartz [facility] C. DIFFICILE GDH TOXIN 2020-05-12 02:53:00 Sharmaine Jain ma [facility] STOOL CULTURE + SHIGA TOXIN 2020-05-12 02:52:00 Sharmaine Jain [facility] FECAL LEUKOCYTES 2020-05-12 02:52:00 Sharmaine Jain [facility] SHIGA TOXIN SCREEN 2020-05-12 02:52:00 Sharmaine Jain [facility] STOOL PATH CHARGE 2020-05-12 02:52:00 JainSharmaine CH I [facility] ECG 12-LEAD 2020-05-12 02:36:43 Unknown, Hl7 Doctor [facility] BASIC METABOLIC PANEL (7) 2020-05-12 01:39:00 CristobalSharmaine [facility] HEPATIC FUNCTION PANEL 2020-05-12 01:39:00 Sharmaine Jain ma [facility] CBC W/PLT COUNT & AUTO DIFFERENTIAL 2020-05-12 01:39:00 [facility]armaine [facility] (CELLAVISION MANUAL DIFF) 2020-05-12 01:39:00 Sharmaine Jain [facility] PROTHROMBIN TIME/INR 2020-05-12 01:38:00 Sharmaine Jain Nehemias [facility] AMMONIA 2020-05-12 01:38:00 Sharmaine [facility] SARS-COV2/RT-PCR ([facility]) 2020-05-12 00:08:00 Sharmaine [facility]ain [facility] D-DIMER 2020-05-12 00:04:00 Sharmaine Jain Nehemias [facility] FERRITIN 2020-05-12 00:04:00 Sharmaine [facility]ain [facility] LACTATE DEHYDROGENASE (LDH) 2020-05-12 00:04:00 Sharmaine [facility]ain [facility] BLOOD CULTURE 2020-05-12 00:03:00 Sharmaine Jain Nehemias [facility] Computed tomography of brain without radiopaque contrast 2020-05 00:00:[address] [facility] [address] of abdomen and pelvis without contrast 2020-05-11 00:00:00 [facility] PROTHROMBIN TIME/INR 2020-03-27 12:23:00 Joan Hoyos [facility] BILIRUBIN, DIRECT 2020-03-27 12:23:00 Joan Hoyos [facility] CBC W/PLT COUNT & AUTO DIFFERENTIAL 2020-03-27 12:23:[address] [facility] COMPREHENSIVE METABOLIC PANEL 2020-03-27 12:23:00 Joan Hoyos [facility] ALPHA FETOPROTEIN (AFP), TUMOR MARKER 2020-01-24 10:21:00 Mi ndikoglu, [facility] BILIRUBIN, DIRECT 2020-01-24 10:21:00 Mindikoglu, [facility]ia [facility] COMPREHENSIVE METABOLIC PANEL 2020-01-24 10:21:00 Mindikoglu, Ay se [facility] PROTHROMBIN TIME/INR 2020-01-24 10:21:00 Mindikoglu, Catia [facility] CBC W/PLT COUNT & AUTO DIFFERENTIAL 2020-01-24 10:21:00 Mindikog ramirez, [facility] BILIRUBIN, DIRECT 2020-01-03 13:02:00 [facility] W/[facility]T COUNT & AUTO DIFFERENTIAL 2020-01-03 13:02:00 Daniella Vazquez [facility] COMPREHENSIVE METABOLIC PANEL 2020-01-03 13:02:00 Cass Daniellamillicent Min[facility]Sharp [place] [facility] PROTHROMBIN TIME/INR 2020-01-03 13:02:00 Daniella Vazquez [facility] PLATELET ESTIMATION 2020-01-03 13:02:00 Daniella Vazquez [facility] XR CHEST 2 VIEWS 2019-12-15 08:24:00 Daniella Vazquez [facility] COMPREHENSIVE METABOLIC PANEL 2019-12-15 07:31:00 Cass Daniellamillicent Wen [facility] PROTHROMBIN TIME/INR 2019-12-15 07:31:00 Daniella Vazquez [facility] BILIRUBIN, DIRECT 2019-12-15 07:31:00 Cass Daniella [facility] RUBEOLA ANTIBODY IGG 2019-12-15 07:31:00 Daniella Vazquez [facility] MUMPS ANTIBODY, IGG 2019-12-15 07:31:00 Michaelaadevictorina Daniellamillicent Wen [facility] RUBELLA ANTIBODY, IGG 2019-12-15 07:31:00 Daniella Vazquez C HI [facility] HIV-1 ANTIGEN WITH HIV-1/2 ANTIBODY 2019-12-15 07:31:00 MichaelaadeDaniella prajapati [facility] HEPATITIS A ANTIBODY, IGG 2019-12-15 07:31:00 Daniella Vazquez [facility] HEPATITIS B CORE ANTIBODY, IGM 2019-12-15 07:31:00 MichaelaadeJamar prajapati [facility] HEPATITIS B CORE ANTIBODY, TOTAL 2019-12-15 07:31:00 Sa millicent Vazquez [facility] HEPATITIS B SURFACE ANTIBODY 2019-12-15 07:31:00 MichaelaadeDaniella prajapati [facility] HEPATITIS B SURFACE ANTIGEN 2019-12-15 07:31:00 Daniella Vazquez [facility] HEPATITIS C ANTIBODY 2019-12-15 07:31:00 Daniella Vazquez [facility] T SPOT TB 2019-12-15 07:31:00 Daniella Vazquez [facility] CRYPTOCOCCAL ANTIGEN 2019-12-15 07:31:00 Daniella Vazquez [facility] RPR 2019-12-15 07:31:00 Daniella Vazquez [facility] VARICELLA ZOSTER ANTIBODY, IGG 2019-12-15 07:31:00 Jamar Vazquez [facility] CBC W/PLT COUNT & AUTO DIFFERENTIAL 2019-12-15 07:31:00 Daniella Vazquez [facility] X-ray of chest, two views 2019-11-22 00:00:00 LE ROBERTS CH [facility] EMERGENCY DEPT VISIT 2019-11-22 00:00:00 [facility] US ABDOMEN COMPLETE 2019-09-20 09:58:00 RomanviriCatia ricardo [facility] X-ray of chest, two views 2019-09-07 00:00:00 MEHDI DANIELS [facility] BILIRUBIN, DIRECT 2019-08-22 12:58:00 Cass Daniellamillicent Wen [facility] CBC W/PLT COUNT & AUTO DIFFERENTIAL 2019-08-22 12:58:00 Cass Daniellamillicent Wen [facility] COMPREHENSIVE METABOLIC PANEL 2019-08-22 12:58:00 [facility] PROTHROMBIN TIME/INR 2019-08-22 12:58:00 Daniella Vazquez CH, I [facility] ALPHA FETOPROTEIN (AFP), TUMOR MARKER 2019-07-26 11:18:00 Cabrera Lancaster [facility] BILIRUBIN, DIRECT 2019-07-26 11:18:00 Cabrera Watson [facility] COMPREHENSIVE METABOLIC PANEL 2019-07-26 11:18:00 Yaquelin Watson [facility] PROTHROMBIN TIME/INR 2019-07-26 11:18:00 Cabrera Watson [facility] CBC W/PLT COUNT & AUTO DIFFERENTIAL 2019-07-26 11:18:00 Cabrera Rothman [facility] Plan of Care Planned Activity Planned Date Details Comments Source Future Scheduled Test 2022-05-03 00:00:00 Lipid panel (proce dure) [code = 16539933] [facility] Future Scheduled Test 2020-11-13 00:00:00 Hemoglobin A1c franco surement (procedure) [code = 30370919] [facility] r Future Scheduled Test 2020-07-10 00:00:00 INFLUENZA VACCINE (#1) [code = INFLUENZA VACCINE (#1)] [facility] r Future Scheduled Test 2019-08-09 00:00:00 MEDICARE ANNUAL WE LLNESS (YEAR 2 or FIRST YEAR if no IPPE) [code = MEDICARE ANNUAL WELLNESS (YEAR 2 or FIRST YEAR if no IPPE)] [facility] Future Scheduled Test 2017-02-13 00:00:00 Screening for rosalba gnant neoplasm of colon (procedure) [code = 319725092] [facility] 1978 00:00:00 DIABETIC EYE EXAM [code = DIABETIC E[facility] EXAM] [facility] 1978 00:00:00 Diabetic foot exam ination (regime/therapy) [code = 572396624] [facility] 1978 00:00:00 Urine screening fo r protein (procedure) [code = 468683096] [facility] Future Scheduled Test 1974 00:00:00 PNEUMOCOCCAL VACCI NE 2-64 YEARS AT RISK (1 of 3 - PCV13) [code = PNEUMOCOCCAL VACCINE 2-64 YEARS AT RISK (1 of 3 - PCV13)] [facility] Encounters Start Date/Time End Date/Time Encounter Type Admission Type [facility] Care Department Encounter ID Source 2020-05-11 11:46:00 2020-05-11 19:10:00 Discharged Inpatient [address] [facility] [id number] [facility] 2019-11-22 15:47:00 2019-11-22 19:38:00 Departed Emergency Room [address] [facility] [id number] ANSLEY [facility] 2019-09-07 16:07:00 2019-09-07 18:23:00 Departed Emergency Room [address] [facility] [id number] [facility] 2019-06-23 16:38:00 2019-06-27 21:46:00 Discharged Inpatient 1 LIBRA ODONNELL [facility] [id number] [facility] Results Test Description Test Time Test Comments Results Result Comments Source Comprehensive metabolic panel 2020-06-06 05:45:00 Test Item Glucose (test code = 9115367) 129 mg/dL 65-99 H Fasting reference interval For someone without known diabetes, a glucosevalue >125 mg/dL indicates that they may havediabetes and this should be confirmed with afollow-up test. BUN (test code = 2833637) 45 mg/dL 7-25 H Creatinine (test code = 3201710) 10.65 mg/dL 0.7-1.33 H Verified by repeat analysis. For patients >49 years of age, the reference limitfor Creatinine is approximately 13% higher for peopleidentified as -Nigerian. eGFR If NonAfricn Am (test code = 6380703) 5 > OR = 60 m L/min/1.73m2 L eGFR If Africn Am (test code = 8136969) 6 > OR = 60 mL/m in/1.73m2 L BUN/Creatinine Ratio (test code = 6964295) 4 6- 22 (calc ) L Sodium (test code = 2238686) 139 mmol/L 135-146 Potassium, Serum (test code = 5130325) 5.9 mmol/L 3.5-5.3 H Chloride (test code = 9389093) 100 mmol/L 98-110 Carbon Dioxide, Total (test code = 2897803) 25 mmol/L 20-32 Calcium, Serum (test code = 0177942) 8.7 mg/dL 8.6-10.3 Protein, Total, Serum (test code = 7102012) 6.0 g/dL 6.1-8.1 L Albumin (test code = 4215902) 3.2 g/dL 3.6-5.1 L GLOBULIN (QUEST) (test code = 1941023) 2.8 1.9- 3.7 g/dL ( calc) Albumin Globulin Ratio (test code = 1759-0) 1.1 1.0- 2.5 ( calc) Bilirubin, Total (test code = 6519465) 0.9 mg/dL 0.2-1.2 Alkaline Phosphatase, S (test code = 6768-6) 242 U/L 35-144 H AST (SGOT) (test code = 7060092) 55 U/L 10-35 H ALT (SGPT) (test code = 4723978) 36 U/L 9-46 RAC (test code = RAC) Performing Organization Info rmation: Site ID: RAVEN Name: [facility] Address: [address] [place] [phone] Director: Oliverio Martinez Lab Interpretation (test code = 92535-0) Abnormal [facility] [id number] 05:45:00* Test Item Value Reference Range Interpretation Comments Bilirubin, Total (test code = 8663056) 0.9 mg/dL 0.2-1.2 Bilirubin, Direct (test code = 9168197) 0.3 mg/dL < OR = 0.2 H Bilirubin, Indirect (test code = 7124879) 0.6 0.2- 1.2 mg/ dL (calc) RAC (test code = RAC) Performing Organization Info rmation: Site ID: RAVEN Name: [facility] Address: [address] [place] [phone] Director: Oliverio Martinez Lab Interpretation (test code = 12247-1) [facility] + automated [id number] 05:45:00* Test Item Value Reference Range Interpretation Comments WBC (test code = ) 4.7 3.8- 10.8 Thousand/uL RBC (test code = 789-8) 3.32 4.20- 5.80 Million/uL L Hemoglobin (test code = ) 10.6 g/dL 13.2-17.1 L Hematocrit (test code = 8654169) 32.5 % 38.5-50 L MCV (test code = 2264205) 97.9 fL 80-100 MCH (test code = 5164017) 31.9 pg 27-33 MCHC (test code = ) 32.6 g/dL 32-36 RDW (test code = 1943646) 17.0 % 11-15 H Platelets (test code = 1648188) 94 140- 400 Thousand/uL L MPV (test code = 2636973) 11.3 fL 7.5-12.5 # Neutros (test code = 2393067) 3163 1,500 - 7,800 cells/uL # Lymphs (test code = 731-0) 851 850- 3,900 cells/uL # Monos (test code = 4334532) 338 200- 950 cells/uL # Eos (test code = 711-2) 329 15- 500 cells/uL # Baso (test code = 704-7) 19 0- 200 cells/uL % Neutros (test code = 3746632) 67.3 % % Lymphs (test code = 3895759) 18.1 % % Monos (test code = 1830571) 7.2 % % Eos (test code = 4037504) 7.0 % % Baso (test code = 9266844) 0.4 % RAC (test code = RAC) Performing Organization Info rmation: Site ID: RAVEN Name: [facility] Address: [address] [place] [address] Director: Oliverio Martinez Lab Interpretation (test code = 09748-7) Abnormal [facility]/[id number] 05:45:00* Test Item Value Reference Range Interpretation Comments INR (test code = 2929920) 1.1 Re ference Range 0.9-1.1Moderate-intensity Warfarin Therapy 2.0-3.0Higher-intensity Warfarin Therapy 3.0-4.0 PT (test code = 1927950) 11.8 9.0- 11.5 sec H F or more information on this test, go to:[email or web address].[email or web address]/faq/ZOW326 RAC (test code = RAC) Performing Organization Info rmation: Site ID: RAVEN Name: [facility] Address: [address] [place] [phone] Director: Oliverio Martinez Lab Interpretation (test code = 62003-3) [facility]normal [facility] - [facility] (Right Venipuncture) 2020-05-17 01:01:00* Test Item Value Reference Range Interpretation Comments Result (test code = 6463-4) No growth in 5 days [facility] [id number] 01:01:00* Test Item Value Reference Range Interpretation Comments CULTURE (BEAKER) (test code = 1095) No growth in 5 days POC-Glucose [id number] 16:01:00* Test Item Value Reference Range Interpretation Comments POC-Glucose Meter (test code = 1538) 275 mg/dL 70-110 H : TESTED AT [address], [address]: Commercial Intern/Financial Assistant ID = [id number] for MINOR PUCKETT Lab Interpretation (test code = 78402-1) Abnormal [facility] [id number] 16:01:00* Test Item Value Reference Range Interpretation Comments POC-GLUCOSE METER (BEAKER) (test code = 1538) 275 mg/dL 70-110 H : TESTED AT [address], [address]: Commercial Intern/Financial Assistant ID = [id number] for MINOR PUCKETT HEMODIALYSIS [id number] 12:35:00Laura Degroot RN 05/16/2020 12:42 PMProcedure tolerated. Received mannitol 12.5 gm for blood pressure support. Vital signs stable post procedure.HD duration 3.5 hours UF 2.6 L via [...] Pulse: 82 Resp: 16 Temp: SpO2: 97% [facility] [id number] 11:36:00* Test Item Value Reference Range Interpretation Comments POC-GLUCOSE METER (BEAKER) (test code = 1538) 121 mg/dL 70-110 H : TESTED AT [address], [address]: Commercial Intern/Financial Assistant ID = [id number] for MINOR PUCKETT POCT-GLUCOSE [id number] 09:20:00* Test Item Value Reference Range Interpretation Comments POC-GLUCOSE METER (BEAKER) (test code = 1538) 232 mg/dL 70-110 H : TESTED AT [facility] [address] [facility], [address]: Commercial Intern/Financial Assistant ID = [id number] for TRACY JONAS COMPREHENSIVE METABOLIC [id number] 05:44:00* Test Item Value Reference Range Interpretation Comments TOTAL PROTEIN (BEAKER) (test code = 770) 6.6 gm/dL 6.0-8.3 ALBUMIN (BEAKER) (test code = 1145) 3.0 g/dL 3.5-5.0 L ALKALINE PHOSPHATASE (BEAKER) (test code = 346) 186 U/L 40-150 H BILIRUBIN TOTAL (BEAKER) (test code = 377) 0.5 mg/dL 0.2-1.2 SODIUM (BEAKER) (test code = 381) 135 meq/L 136-145 L POTASSIUM (BEAKER) (test code = 379) 4.8 meq/L 3.5-5.1 CHLORIDE (BEAKER) (test code = 382) 96 meq/L 98-107 L CO2 (BEAKER) (test code = 355) 23 meq/L 22-29 BLOOD UREA NITROGEN (BEAKER) (test code = 354) 93 mg/dL 7-21 H CREATININE (BEAKER) (test code = 358) 13.90 mg/dL 0.57-1.25 H GLUCOSE RANDOM (BEAKER) (test code = 652) 258 mg/dL 70-105 H CALCIUM (BEAKER) (test code = 697) 8.1 mg/dL 8.4-10.2 L AST (SGOT) (BEAKER) (test code = 353) 83 U/L 5-34 H ALT (SGPT) (BEAKER) (test code = 347) 70 U/L 6-55 H EGFR (BEAKER) (test code = 1092) 4 mL/min/1.73 sq m ESTIMATED GFR IS NOT ACCURATE CREATININE CLEARANCE IN PREDICTING GLOMERULAR FILTRATION RATE. ESTIMATED GFR IS NOT APPLICABLE FOR DIALYSIS PATIENTS. Commercial Intern ID - VANESSA [id number] 05:43:00* Test Item Value Reference Range Interpretation Comments Magnesium (test code = 18854-7) 2.5 mg/dL 1.6-2.6 MARLEN (test code = MARLEN) Commercial Intern ID - PIAYA L Lab Interpretation (test code = 76443-3) Normal [facility] 05:43:00* Test Item Value Reference Range Interpretation Comments Phosphorus (test code = 2777-1) 6.5 mg/dL 2.3-4.7 H MARLEN (test code = MARLEN) Commercial Intern ID - PIAYA L Lab Interpretation (test code = 66933-5) Abnormal [facility]-Reactive [id number] 05:43:00* Test Item Value Reference Range Interpretation Comments CRP (test code = 676) 2.73 mg/dL 0-0.5 H MARLEN (test code = MARLEN) Commercial Intern ID - PIAYA L Lab Interpretation (test code = 26057-2) Abnormal [facility]OSPHORUS2020-07-08 05:43:00* Test Item Value Reference Range Interpretation Comments PHOSPHORUS (BEAKER) (test code = 604) 6.5 mg/dL 2.3-4.7 H Commercial Intern ID - PIAYA [id number] 05:43:00* Test Item Value Reference Range Interpretation Comments MAGNESIUM (BEAKER) (test code = 627) 2.5 mg/dL 1.6-2.6 Commercial Intern ID - PIAYA LC-REACTIVE [id number] 05:43:00* Test Item Value Reference Range Interpretation Comments C-REACTIVE PROTEIN (BEAKER) (test code = 676) 2.73 mg/dL 0.00-0.5 0 H Commercial Intern ID - PIAYA LCBC with platelet count + automated [id number] 05:25:00 * Test Item Value Reference Range Interpretation Comments WBC (test code = 6690-2) 4.3 3.5- 10.5 K/L RBC (test code = 789-8) 2.91 4.63- 6.08 M/L L MCHC (test code = 786-4) 32.6 32.3- 36.5 GM/DL L Hematocrit (test code = 4544-3) 28.8 % 40.1-51 L MCV (test code = 787-2) 99.0 fL 79-92.2 H MCH (test code = 785-6) 32.3 pg 25.7-32.2 H RDW (test code = 788-0) 17.9 % 11.6-14.4 H Platelets (test code = 777-3) 75 150- 450 K/CU MM L MPV (test code = 03627-1) 11.5 fL 9.4-12.4 nRBC (test code = 413) 0 0- 0 /100 WBC % Neutros (test code = 429) 83 % % Lymphs (test code = 430) 10 % % Monos (test code = 431) 5 % % Eos (test code = 432) 0 % % Baso (test code = 437) 0 % # Neutros (test code = 670) 3.60 1.78- 5.38 K/L # Lymphs (test code = 414) 0.44 1.32- 3.57 K/L L # Monos (test code = 415) 0.23 0.30- 0.82 K/L L # Eos (test code = 416) 0.00 0.04- 0.54 K/L L # Baso (test code = 417) 0.01 0.01- 0.08 K/L Immature Granulocytes-Relative (test code = 2801) 1 % 0-1 Lab Interpretation (test code = 50864-0) Abnormal [facility] W/PLT COUNT & AUTO [id number] 05:25:00* Test Item Value Reference Range Interpretation Comments WHITE BLOOD CELL COUNT (BEAKER) (test code = 775) 4.3 K/ L 3.5- 10.5 RED BLOOD CELL COUNT (BEAKER) (test code = 761) 2.91 M/ L 4.63-6 .08 L HEMOGLOBIN (BEAKER) (test code = 410) 9.4 GM/DL 13.7-17.5 L HEMATOCRIT (BEAKER) (test code = 411) 28.8 % 40.1-51.0 L MEAN CORPUSCULAR VOLUME (BEAKER) (test code = 753) 99.0 fL 79. 0-92.2 H MEAN CORPUSCULAR HEMOGLOBIN (BEAKER) (test code = 751) 32.3 pg 25.7-32.2 H MEAN CORPUSCULAR HEMOGLOBIN CONC (BEAKER) (test code = 752) 32.6 GM/DL 32.3-36.5 RED CELL DISTRIBUTION WIDTH (BEAKER) (test code = 412) 17.9 % 11.6-14.4 H PLATELET COUNT (BEAKER) (test code = 756) 75 K/CU MM 150-450 L MEAN PLATELET VOLUME (BEAKER) (test code = 754) 11.5 fL 9.4-12 .4 NUCLEATED RED BLOOD CELLS (BEAKER) (test code = 413) 0 /100 WBC 0 -0 NEUTROPHILS RELATIVE PERCENT (BEAKER) (test code = 429) 83 % LYMPHOCYTES RELATIVE PERCENT (BEAKER) (test code = 430) 10 % MONOCYTES RELATIVE PERCENT (BEAKER) (test code = 431) 5 % EOSINOPHILS RELATIVE PERCENT (BEAKER) (test code = 432) 0 % BASOPHILS RELATIVE PERCENT (BEAKER) (test code = 437) 0 % NEUTROPHILS ABSOLUTE COUNT (BEAKER) (test code = 670) 3.60 K/ L 1.78-5.38 LYMPHOCYTES ABSOLUTE COUNT (BEAKER) (test code = 414) 0.44 K/ L 1.32-3.57 L MONOCYTES ABSOLUTE COUNT (BEAKER) (test code = 415) 0.23 K/ L 0. 30-0.82 L EOSINOPHILS ABSOLUTE COUNT (BEAKER) (test code = 416) 0.00 K/ L 0.04-0.54 L BASOPHILS ABSOLUTE COUNT (BEAKER) (test code = 417) 0.01 K/ L 0. 01-0.08 IMMATURE GRANULOCYTES-RELATIVE PERCENT (BEAKER) (test code = 2801) 1 % 0-1 Prepare [id number] 23:54:00* Test Item Value Reference Range Interpretation Comments Unit ABO (test code = 2053005) O Pos UNIT NUMBER (test code = 934-0) [id number] Status (test code = 5619858) TX_TIMEINCHART Blood Bank Product (test code = 2263) FFP PRODUCT CODE (test code = 933-2) [id number] [facility] [id number] 20:02:00* Test Item Value Reference Range Interpretation Comments POC-GLUCOSE METER (BEAKER) (test code = 1538) 252 mg/dL 70-110 H : TESTED AT [facility] [address] [facility], [address]: Commercial Intern/Financial Assistant ID = [id number] for Marcie Ruiz (contract) POCT-GLUCOSE [id number] 12:51:00* Test Item Value Reference Range Interpretation Comments POC-GLUCOSE METER (BEAKER) (test code = 1538) 266 mg/dL 70-110 H : TESTED AT [facility] [address] [facility], [address]: Commercial Intern/Financial Assistant ID = [id number] for RODGER IRIZARRY Basic Metabolic [id number] 10:15:00* Test Item Value Reference Range Interpretation Comments Sodium (test code = 2951-2) 135 meq/L 136-145 L Potassium (test code = 2823-3) 4.8 meq/L 3.5-5.1 Chloride (test code = 2075-0) 98 meq/L 98-107 CO2 (test code = 8-9) 23 meq/L 22-29 BUN (test code = 3094-0) 77 mg/dL 7-21 H Creatinine (test code = 2160-0) 12.64 mg/dL 0.57-1.25 H Glucose (test code = 2345-7) 284 mg/dL 70-105 H Calcium (test code = 46960-0) 8.0 mg/dL 8.4-10.2 L EGFR (test code = 65540-0) 4 mL/min/1.73 sq m ESTIMATED GFR IS NOT ACCURATE CREATININE CLEARANCE IN PREDICTING GLOMERULAR FILTRATION RATE. ESTIMATED GFR IS NOT APPLICABLE FOR DIALYSIS PATIENTS. MARLEN (test code = MARLEN) Commercial Intern ID - PIAYA L Lab Interpretation (test code = 43815-1) Abnormal [facility] METABOLIC [id number] 10:15:00* Test Item Value Reference Range Interpretation Comments SODIUM (BEAKER) (test code = 381) 135 meq/L 136-145 L POTASSIUM (BEAKER) (test code = 379) 4.8 meq/L 3.5-5.1 CHLORIDE (BEAKER) (test code = 382) 98 meq/L 98-107 CO2 (BEAKER) (test code = 355) 23 meq/L 22-29 BLOOD UREA NITROGEN (BEAKER) (test code = 354) 77 mg/dL 7-21 H CREATININE (BEAKER) (test code = 358) 12.64 mg/dL 0.57-1.25 H GLUCOSE RANDOM (BEAKER) (test code = 652) 284 mg/dL 70-105 H CALCIUM (BEAKER) (test code = 697) 8.0 mg/dL 8.4-10.2 L EGFR (BEAKER) (test code = 1092) 4 mL/min/1.73 sq m ESTIMATED GFR IS NOT ACCURATE CREATININE CLEARANCE IN PREDICTING GLOMERULAR FILTRATION RATE. ESTIMATED GFR IS NOT APPLICABLE FOR DIALYSIS PATIENTS. Commercial Intern ID - VANESSA [id number] 09:43:00* Test Item Value Reference Range Interpretation Comments PHOSPHORUS (BEAKER) (test code = 604) 7.4 mg/dL 2.3-4.7 H Commercial Intern ID - VANESSA [id number] 09:43:00* Test Item Value Reference Range Interpretation Comments MAGNESIUM (BEAKER) (test code = 627) 2.4 mg/dL 1.6-2.6 Commercial Intern ID - VANESSA LPOCT-GLUCOSE [id number] 09:15:00* Test Item Value Reference Range Interpretation Comments POC-GLUCOSE METER (BEAKER) (test code = 1538) 295 mg/dL 70-110 H : TESTED AT [address], [address]: Commercial Intern/Financial Assistant ID = [id number] for MATT DICKERSON [id number] 04:46:00* Test Item Value Reference Range Interpretation Comments Ferritin (test code = 2276-4) 2562.81 ng/mL 5-275 H MARLEN (test code = MARLEN) Commercial Intern ID Camilla MENDEZ L Lab Interpretation (test code = 93852-4) [facility] 04:46:00* Test Item Value Reference Range Interpretation Comments FERRITIN (BEAKER) (test code = 361) 2562.81 ng/mL 5.00-275.00 H Commercial Intern ID - VANESSA LC-REACTIVE [id number] 03:56:00* Test Item Value Reference Range Interpretation Comments C-REACTIVE PROTEIN (BEAKER) (test code = 676) 4.06 mg/dL 0.00-0.5 0 H Commercial Intern ID - VANESSA LPOCT-GLUCOSE [id number] 03:08:00* Test Item Value Reference Range Interpretation Comments POC-GLUCOSE METER (BEAKER) (test code = 1538) 338 mg/dL 70-110 H : TESTED AT [address], [address]: Commercial Intern/Financial Assistant ID = [id number] for TETO DRAPER POCT-GLUCOSE [id number] 23:12:00* Test Item Value Reference Range Interpretation Comments POC-GLUCOSE METER (BEAKER) (test code = 1538) 434 mg/dL 70-110 HH : Notified RN/MD: TESTED AT [address], [address]: Commercial Intern/Financial Assistant ID = [id number] for TETO DRAPER POCT-GLUCOSE [id number] 17:20:00* Test Item Value Reference Range Interpretation Comments POC-GLUCOSE METER (BEAKER) (test code = 1538) 370 mg/dL 70-110 H : TESTED AT [address], [address]: Commercial Intern/Financial Assistant ID = [id number] for BAILEY GONZALEZ POCT-GLUCOSE [id number] 16:59:00* Test Item Value Reference Range Interpretation Comments POC-GLUCOSE METER (BEAKER) (test code = 1538) 367 mg/dL 70-110 H : TESTED AT [address], [address]: Commercial Intern/Financial Assistant ID = [id number] for JENNIFER ABDUL Stool culture + Shiga [id number] 13:02:00* Test Item Value Reference Range Interpretation Comments Result (test code = 6463-4) No Salmonella, Shigella or Campyloba cter isolated [facility] CULTURE + SHIGA [id number] 13:02:00* Test Item Value Reference Range Interpretation Comments CULTURE (BEAKER) (test code = 1095) No Salmonella, Magalie gella or Campylobacter isolated STO[facility] PATH [id number] 13:01:00* Test Item Value Reference Range Interpretation Comments Pathogen exam charged (test code = 2381) Done [facility] PATH [id number] 13:01:00* Test Item Value Reference Range Interpretation Comments PATHOGEN EXAM CHARGED (BEAKER) (test code = 2381) Done POCT-GLUCOSE [id number] 12:46:00* Test Item Value Reference Range Interpretation Comments POC-GLUCOSE METER (BEAKER) (test code = 1538) 290 mg/dL 70-110 H : TESTED AT [address], [address]: Commercial Intern/Financial Assistant ID = [id number] for JENNIFER ABDUL HEMODIALYSIS [id number] 12:10:38Chu, Filippo Bernabe RN 05/14/2020 12:11 PMHD x 3.5 hrs. UF net 3L. Given 1 dose of mannitol for BP support. Pt awake and [...] Temp: 96.5 F (35.8 C) SpO2: 98% [facility]* Test Item Value Reference Range Interpretation Comments FERRITIN (BEAKER) (test code = 361) 3170.28 ng/mL 5.00-275.00 H Commercial Intern ID - NTPPOCT-GLUCOSE [id number] 07:45:00* Test Item Value Reference Range Interpretation Comments POC-GLUCOSE METER (BEAKER) (test code = 1538) 362 mg/dL 70-110 H : TESTED AT [address], [address]: Commercial Intern/Financial Assistant ID = [id number] for [facility]ENN[facility] BASIC METABOLIC [id number] 07:04:00* Test Item Value Reference Range Interpretation Comments SODIUM (BEAKER) (test code = 381) 130 meq/L 136-145 L POTASSIUM (BEAKER) (test code = 379) 5.0 meq/L 3.5-5.1 CHLORIDE (BEAKER) (test code = 382) 93 meq/L 98-107 L CO2 (BEAKER) (test code = 355) 20 meq/L 22-29 L BLOOD UREA NITROGEN (BEAKER) (test code = 354) 92 mg/dL 7-21 H CREATININE (BEAKER) (test code = 358) 15.71 mg/dL 0.57-1.25 H GLUCOSE RANDOM (BEAKER) (test code = 652) 452 mg/dL 70-105 HH CALCIUM (BEAKER) (test code = 697) 7.6 mg/dL 8.4-10.2 L EGFR (BEAKER) (test code = 1092) 3 mL/min/1.73 sq m ESTIMATED GFR IS NOT ACCURATE CREATININE CLEARANCE IN PREDICTING GLOMERULAR FILTRATION RATE. ESTIMATED GFR IS NOT APPLICABLE FOR DIALYSIS PATIENTS. Commercial Intern ID - PIAYA LECG 12 [id number] 06:32:57Interface, External Ris In - 05/14/2020 6:33 AM CDTVentricular Rate 76 BPMAtrial Rate 76 BPMP-R Interval 298 msQRS Duration 124 msQ-T Interval 462 msQTC Calculation(Bazett) 519 msP [place] 44 degreesR [place] -25 degreesT [place] 23 degreesSinus rhythm with 1st degree A-V blockNon-specific intra-ventricular conduction delayNonspecific ST abnormalityProlonged QTWhen compared with ECG of 11-DEC-2015 11:11,[place] interval has increasedQRS duration has increasedT wave inversion now evident in Anterior leadsQT has lengthenedConfirmed by MD SHARLA, NADINE ([id number]) on 05/14/2020 6:32:55 [facility] [id number] 06:28:00 * Test Item Value Reference Range Interpretation Comments Protein, Total (test code = 2885-2) 6.5 6.0- 8.3 gm/dL Albumin (test code = 21293-2) 3.0 g/dL 3.5-5 L Total Bilirubin (test code = 1974-) 0.5 mg/dL 0.2-1.2 Bilirubin, Direct (test code = 1967-7) 0.4 mg/dL 0.1-0.5 Alkaline Phosphatase (test code = 6768-6) 172 U/L 40-150 H AST (test code = 1920-8) 57 U/L 5-34 H ALT (test code = 1742-6) 46 U/L 6-55 MARLEN (test code = MARLEN) Commercial Intern ID - VANESSA L Lab Interpretation (test code = 70815-8) [facility]normal [facility] [id number] 06:28:00* Test Item Value Reference Range Interpretation Comments TOTAL PROTEIN (BEAKER) (test code = 770) 6.5 gm/dL 6.0-8.3 ALBUMIN (BEAKER) (test code = 1145) 3.0 g/dL 3.5-5.0 L BILIRUBIN TOTAL (BEAKER) (test code = 377) 0.5 mg/dL 0.2-1.2 BILIRUBIN DIRECT (BEAKER) (test code = 706) 0.4 mg/dL 0.1-0.5 ALKALINE PHOSPHATASE (BEAKER) (test code = 346) 172 U/L 40-150 H AST (SGOT) (BEAKER) (test code = 353) 57 U/L 5-34 H ALT (SGPT) (BEAKER) (test code = 347) 46 U/L 6-55 Commercial Intern ID - VANESSA LC-REACTIVE [id number] 06:28:00* Test Item Value Reference Range Interpretation Comments C-REACTIVE PROTEIN (BEAKER) (test code = 676) 5.78 mg/dL 0.00-0.5 0 H Commercial Intern ID - VANESSA LPROTHROMBIN TIME/[id number] 05:56:00* Test Item Value Reference Range Interpretation Comments PROTIME (BEAKER) (test code = 759) 18.9 seconds 11.9-14.2 H INR (BEAKER) (test code = 370) 1.6 <=5.9 Effective 04/06/2019: PT Reference Range ChangeNew: 11.9-14.2 Previous: 11.7-14. 7RECOMMENDED COUMADIN/WARFARIN INR THERAPY RANGESSTANDARD DOSE: 2.0-3.0 Include s: PROPHYLAXIS for venous thrombosis, systemic embolization; TREATMENT for venou s thrombosis and/or pulmonary embolus.HIGH RISK: Target INR is 2.5-3.5 for patie nts wiht mechanical heart valves.POCT-GLUCOSE [id number] 22:31:00* Test Item Value Reference Range Interpretation Comments POC-GLUCOSE METER (BEAKER) (test code = 1538) 397 mg/dL 70-110 H : TESTED AT [place] [id number] [facility], [address]: Commercial Intern/Financial Assistant ID = [id number] for EBENEZER JAY POCT-GLUCOSE [id number] 18:35:00* Test Item Value Reference Range Interpretation Comments POC-GLUCOSE METER (BEAKER) (test code = 1538) 365 mg/dL 70-110 H : TESTED AT [address], [address]: Commercial Intern/Financial Assistant ID = [id number] for YANNICK DOE Type and screen, [id number] 16:50:00* Test Item Value Reference Range Interpretation Comments ABO/RH AUTOMATED (BEAKER) (test code = 2260) O POSITIVE Ab Scrn (test code = 890-4) NEGATIVE [facility] Toxin [id number] 14:14:00* Test Item Value Reference Range Interpretation Comments Shiga toxin 1 (test code = 12564-0) Not detected Not detected Shiga toxin 2 (test code = 63612-5) Not detected Not detected Lab Interpretation (test code = 85342-4) Normal [facility] TOXIN [id number] 14:14:00* Test Item Value Reference Range Interpretation Comments SHIGA TOXIN 1 (BEAKER) (test code = 2177) Not detected Not detected SHIGA TOXIN 2 (BEAKER) (test code = 2179) Not detected Not detected POCT-GLUCOSE [id number] 12:08:00* Test Item Value Reference Range Interpretation Comments POC-GLUCOSE METER (BEAKER) (test code = 1538) 289 mg/dL 70-110 H : TESTED AT [place] [id number] [facility], [address]: Commercial Intern/Financial Assistant ID = [id number] for YANNICK DOE Troponin [id number] 10:14:00* Test Item Value Reference Range Interpretation Comments Troponin I (test code = 50665-6) 0.21 ng/mL 0-0.03 HH MARLEN (test code = MARLEN) Troponin I (TnI) levels must be interpreted in the context of the presenting symptoms and the clinical findings. Elevated TnI levels indicate myocardial damage, but are not specific for ischemic heart disease. Elevated TnI levels are seen in patients with other cardiac conditions (including myocarditis and congestive heart failure), and slight TnI elevations occur in patients with other conditions, including sepsis, renal failure, acidosis, acute neurological disease, and persistent tachyarrhythmia.Commercial Intern ID - NATALY Kamlesh Lab Interpretation (test code = 80571-5) [facility]normal [facility] [id number] 10:14:00* Test Item Value Reference Range Interpretation Comments TROPONIN I (BEAKER) (test code = 397) 0.21 ng/mL 0.00-0.03 HH Troponin I (TnI) levels must be interpreted in the context of the presenting sym ptoms and the clinical findings. Elevated TnI levels indicate myocardial damage, but are not specific for ischemic heart disease. Elevated TnI levels are seen in patients with other cardiac conditions (including myocarditis and congestive h eart failure), and slight TnI elevations occur in patients with other conditions , including sepsis, renal failure, acidosis, acute neurological disease, and per sistent tachyarrhythmia.Commercial Intern ID - NATALY CPOCT-GLUCOSE [id number] 08:41:00 * Test Item Value Reference Range Interpretation Comments POC-GLUCOSE METER (BEAKER) (test code = 1538) 243 mg/dL 70-110 H : TESTED AT [facility] [address] [facility], [address]: Commercial Intern/Financial Assistant ID = [id number] for Sherley Yuan Hemoglobin [id number] 08:36:00* Test Item Value Reference Range Interpretation Comments Hemoglobin A1C (test code = 4548-4) 5.2 % 4.3-6.1 Lab Interpretation (test code = 93682-6) Normal [facility] [id number] 08:36:00* Test Item Value Reference Range Interpretation Comments HEMOGLOBIN A1C (BEAKER) (test code = 368) 5.2 % 4.3-6.1 [id number] 08:15:00* Test Item Value Reference Range Interpretation Comments FERRITIN (BEAKER) (test code = 361) 4151.40 ng/mL 5.00-275.00 H Commercial Intern ID - NATALY CBASIC METABOLIC [id number] 07:32:00* Test Item Value Reference Range Interpretation Comments SODIUM (BEAKER) (test code = 381) 137 meq/L 136-145 POTASSIUM (BEAKER) (test code = 379) 5.0 meq/L 3.5-5.1 CHLORIDE (BEAKER) (test code = 382) 99 meq/L 98-107 CO2 (BEAKER) (test code = 355) 21 meq/L 22-29 L BLOOD UREA NITROGEN (BEAKER) (test code = 354) 69 mg/dL 7-21 H CREATININE (BEAKER) (test code = 358) 15.05 mg/dL 0.57-1.25 H GLUCOSE RANDOM (BEAKER) (test code = 652) 279 mg/dL 70-105 H CALCIUM (BEAKER) (test code = 697) 8.1 mg/dL 8.4-10.2 L EGFR (BEAKER) (test code = 1092) 3 mL/min/1.73 sq m ESTIMATED GFR IS NOT ACCURATE CREATININE CLEARANCE IN PREDICTING GLOMERULAR FILTRATION RATE. ESTIMATED GFR IS NOT APPLICABLE FOR DIALYSIS PATIENTS. Commercial Intern ID - PIAYA LHEPATIC FUNCTION [id number] 07:20:00* Test Item Value Reference Range Interpretation Comments TOTAL PROTEIN (BEAKER) (test code = 770) 6.5 gm/dL 6.0-8.3 ALBUMIN (BEAKER) (test code = 1145) 3.0 g/dL 3.5-5.0 L BILIRUBIN TOTAL (BEAKER) (test code = 377) 0.6 mg/dL 0.2-1.2 BILIRUBIN DIRECT (BEAKER) (test code = 706) 0.4 mg/dL 0.1-0.5 ALKALINE PHOSPHATASE (BEAKER) (test code = 346) 153 U/L 40-150 H AST (SGOT) (BEAKER) (test code = 353) 74 U/L 5-34 H ALT (SGPT) (BEAKER) (test code = 347) 56 U/L 6-55 H Commercial Intern ID - PIAYA LC-REACTIVE [id number] 07:20:00* Test Item Value Reference Range Interpretation Comments C-REACTIVE PROTEIN (BEAKER) (test code = 676) 9.41 mg/dL 0.00-0.5 0 H Commercial Intern ID - VANESSA LPROTHROMBIN TIME/[id number] 06:56:00* Test Item Value Reference Range Interpretation Comments PROTIME (BEAKER) (test code = 759) 19.7 seconds 11.9-14.2 H INR (BEAKER) (test code = 370) 1.7 <=5.9 Effective 04/06/2019: PT Reference Range ChangeNew: 11.9-14.2 Previous: 11.7-14. 7RECOMMENDED COUMADIN/WARFARIN INR THERAPY RANGESSTANDARD DOSE: 2.0-3.0 Include s: PROPHYLAXIS for venous thrombosis, systemic embolization; TREATMENT for venou s thrombosis and/or pulmonary embolus.HIGH RISK: Target INR is 2.5-3.5 for patie nts wiht mechanical heart valves.POCT-GLUCOSE [id number] 01:18:00* Test Item Value Reference Range Interpretation Comments POC-GLUCOSE METER (BEAKER) (test code = 1538) 283 mg/dL 70-110 H : TESTED AT [facility] [address] [facility], [address]: Commercial Intern/Financial Assistant ID = [id number] for MARVIN GROSS POCT-GLUCOSE [id number] 18:38:00* Test Item Value Reference Range Interpretation Comments POC-GLUCOSE METER (BEAKER) (test code = 1538) 286 mg/dL 70-110 H : TESTED AT [facility] [address] [facility], [address]: Commercial Intern/Financial Assistant ID = [id number] for YANNICK DOE RAD, CHEST, 1 VIEW, NON [id number] 15:59:00Referring: [facility]:->dyspneaShould this be performed at the bedside?->Yes FINAL REPORT EXAM: Chest one view COMPARISON: December 15, 2019 CLINICAL HISTORY: Dyspnea FINDINGS: There is interval development of airway opacities in the right lung base, this may represent atelectasis versus consol idation. The cardiac size is within normal limits. There is no evidence of pleur al effusion or pneumothorax. The regional osseous structures are unremarkable. S igned: Brittany Dots[place] Verified Date/Time: 05/12/2020 15:59:03 Reading Location: [place] [id number] Transitional Reading Room chest 1 view portable / bedside 2020-05-12 15:59:00Interface, External Ris In - 05/12/2020 4:01 PM CDTFINAL REPORT EXAM: Chest one view COMPARISON: December 15, 2019 CLINICAL HISTORY: Dyspnea FINDINGS: There is interval development of airway opacities in the right lung base, this may represent atelectasis versus consolidation. The cardiac size is within normal limits. There is no evidence of pleural effusion or pneumothorax. The regional osseous structures are unremarkable. Signed: Brittany Dotson MDReport Verified Date/Time: 05/12/2020 15:59:03 Reading Location: [facility] C013 Transitional Reading Room [facility] [id number] 15:24:40PerTanner crespo III, MD 05/12/2020 3:[facility] 05/12/2020I have personally seen and examined Marco A Robles on hemodialysisIndication : ESRDPrescription: F160, 3-4 hrs, 2.0K, 2.5 Ca, UF 2-3 L as tolReason for exam: BP fluctuation & adjust dry weightTolerating dialysis ok Tanner Manjarrez III, MD05/12/2020 [facility]2020-07-04 14:59:00* Test Item Value Reference Range Interpretation Comments Procalcitonin (test code = 04580-6) 3.02 ng/mL <0.05 H MARLEN (test code = MARLEN) SEPSIS RISK (ng/mL)Low: 0.05-0.50Intermediate: 0.51-2.00High: >=2.01 Lab Interpretation (test code = 56484-4) Abnormal [facility]AL[facility]ONIN2020-07-04 14:59:00* Test Item Value Reference Range Interpretation Comments PROCALCITONIN (BEAKER) (test code = 3036) 3.02 ng/mL <0.05 H SEPSIS RISK (ng/mL)Low: 0.05-0.50Intermediate: 0.51-2.00High: > =2.01POCT-GLUCOSE [id number] 13:49:00* Test Item Value Reference Range Interpretation Comments POC-GLUCOSE METER (JEAN MARIEAKER) (test code = 1538) 139 mg/dL 70-110 H : TESTED AT [facility] [address] [facility], [address]: Commercial Intern/Financial Assistant ID = [id number] for Yolanda Jerez Hepatitis B surface [id number] 13:39:00* Test Item Value Reference Range Interpretation Comments HBsAg Screen (test code = 5195-3) Nonreactive Nonreactive MARLEN (test code = MARLEN) Specimen is considered negative for HBsAg. Lab Interpretation (test code = 95664-8) Normal [facility] SURFACE [id number] 13:39:00* Test Item Value Reference Range Interpretation Comments HEPATITIS B SURFACE ANTIGEN (2) (BEAKER) (test code = 2585) Nonreactive Nonreactive Specimen is considered negative for HBsAg.TROPONIN [id number] 10:58:00* Test Item Value Reference Range Interpretation Comments TROPONIN I (JEAN MARIEAKER) (test code = 397) 0.30 ng/mL 0.00-0.03 HH Troponin I (TnI) levels must be interpreted in the context of the presenting sym ptoms and the clinical findings. Elevated TnI levels indicate myocardial damage, but are not specific for ischemic heart disease. Elevated TnI levels are seen in patients with other cardiac conditions (including myocarditis and congestive h eart failure), and slight TnI elevations occur in patients with other conditions , including sepsis, renal failure, acidosis, acute neurological disease, and per sistent tachyarrhythmia.Commercial Intern ID - NATALY [id number] 10:57:00* Test Item Value Reference Range Interpretation Comments FERRITIN (JEAN MARIEAKER) (test code = 361) 7839.82 ng/mL 5.00-275.00 H Commercial Intern ID - NATALY CC-REACTIVE [id number] 10:48:00* Test Item Value Reference Range Interpretation Comments C-REACTIVE PROTEIN (LIZETT) (test code = 676) 14.18 mg/dL 0.00-0.5 0 H Commercial Intern ID - NATALY CPOCT-GLUCOSE [id number] 08:36:00* Test Item Value Reference Range Interpretation Comments POC-GLUCOSE METER (BEAKER) (test code = 1538) 288 mg/dL 70-110 H : TESTED AT [facility] [address] [facility], [address]: Commercial Intern/Financial Assistant ID = [id number] for MINOR PUCKETT SARS-CoV2/RT-PCR (Symptomatic ONLY)2020-05-12 08:15:00* Test Item Value Reference Range Interpretation Comments SARS-COV2/RT-PCR (test code = 94865-4) Detected Not Detected, N egative AA SARS-COV-2 PERFORMING LAB (test code = 24916-2) [facility] MARLEN (test code = MARLEN) Results are for the detectio n of SARS-CoV-2 RNA. The SARS-CoV-2 RNA is generally detectable in nasopharyngeal swab specimens during the acute phase of infection. Positive results are indicative of active infection with SARS-CoV-2; clinical correlation with patient history and other diagnostic information is necessary to determine patient infection status. Positive results do not rule out bacterial infection or co-infection with other viruses. The agent detected may not be the definite cause of disease. The limit of detection for this assay is 250 copies/mL. This SARS CoV-2 test is a rapid, real-time RT-PCR test intended for the qualitative detection of nucleic acid from SARS-CoV-2 in a nasopharyngeal swab specimen collected from individuals suspected of COVID-19 by their healthcare provider. This test has not been Food and Drug Administration (FDA) cleared or approved and has been authorized by FDA under an Emergency Use Authorization (EUA). This EUA will be effective until the declaration that circumstances exist justifying the authorization of the emergency use of in vitro diagnostic tests for detection and/or diagnosis of COVID-19 is terminated under Section 564(b)(2) of the Act or the EUA is revoked under Section 564(g) of the Act. Fact Sheet for Healthcare Providers:https://www.WorldTV/Documents/Xpert%20Xpress%20SARS%20CoV-2/Fact%2 0Sheets/302-8512%09JRWG-PER-2%20HEALTHCARE%20PROVIDERS%20FACT%20SHEET.pdf Fact Sheet for Healthcare Patients:https://www.WorldTV/Documents/Xpert%20Xpress%20SARS%20CoV-2/Fact%20 Sheets/246-9131%47VXPI-MPN-9%20PATIENT%20FACT%20SHEET.pdf Performing Labo ratory:[facility] [place] [address] Lab Interpretation (test code = 15164-3) [facility]normal [facility])2020-05-12 08:15:00* Test Item Value Reference Range Interpretation Comments SARS-COV2/RT-PCR (test code = 6416595) Detected Not Detected, N egative AA SARS-COV-2 PERFORMING LAB (test code = 5520160) [facility] Results are for the detection of SARS-CoV-2 RNA. The SARS-CoV-2 RNA is generally detectable in nasopharyngeal swab specimens during the acute phase of infection. Positive results are indicative of active infection with SARS-CoV-2; clinical correlation with patient history and other diagnostic information is necessary t o determine patient infection status. Positive results do not rule out bacterial infection or co-infection with other viruses. The agent detected may not be the definite cause of disease. The limit of detection for this assay is 250 copies/ mL.This SARS CoV-2 test is a rapid, real-time RT-PCR test intended for the quali tative detection of nucleic acid from SARS-CoV-2 in a nasopharyngeal swab specim en collected from individuals suspected of COVID-19 by their healthcare provider .This test has not been Food and Drug Administration (FDA) cleared or approved a nd has been authorized by FDA under an Emergency Use Authorization (EUA). This E UA will be effective until the declaration that circumstances exist justifying t he authorization of the emergency use of in vitro diagnostic tests for detection and/or diagnosis of COVID-19 is terminated under Section 564(b)(2) of the Act or the EUA is revoked under Section 564(g) of the Act.Fact Sheet for Healthcare P mecheders:https://www.WorldTV/Documents/Xpert%20Xpress%20SARS%20CoV-2/Fact%20 Sheets/426-9664%26HAAI-DQB-4%20HEALTHCARE%20PROVIDERS%20FACT%20SHEET.pdfFact She et for Healthcare Patients:https://www.Asterion.Kidblog/Documents/Xpert%20Xpress%20SA RS%20CoV-2/Fact%20Sheets/302-3801%93MCQK-VPE-0%20PATIENT%20FACT%20SHEET.pdfPerfo [facility] Laboratory:[facility], [place] [address]Manual [id number] 07:47:00* Test Item Value Reference Range Interpretation Comments % Neutros (test code = 2816) 96 % % Lymphs (test code = 2817) 3 % % Baso (test code = 2820) 1 % # Neutros (test code = 2830) 4.70 K/ul 1.78-5.38 # Lymphs (test code = 2831) 0.15 K/ul 1.32-3.57 L # Baso (test code = 2835) 0.05 K/uL 0.01-0.08 Total Counted (test code = 1351) 100 WBC Morphology (test code = 487) Normal Platelet Morphology (test code = 486) Normal Polychromasia (test code = 478) 1+ few Anisocytosis (test code = 961) 2+ moderate Microcytes (test code = 965) 1+ few Macrocytes (test code = 964) 2+ moderate Poikilocytes (test code = 966) 2+ moderate Ovalocytes (test code = 477) 2+ moderate Tear Drop Cells (test code = 481) 1+ few Artifact (test code = 3432) Present Platelet Conc (test code = 3438) Decreased MARLEN (test code = MARLEN) Commercial Intern ID - Oswald-Jam HuangU ser comments: Slide comments: Lab Interpretation (test code = 43514-0) Abnormal [facility] W/PLT COUNT & AUTO [id number] 07:47:00* Test Item Value Reference Range Interpretation Comments WHITE BLOOD CELL COUNT (BEAKER) (test code = 775) 4.9 K/ L 3.5- 10.5 RED BLOOD CELL COUNT (BEAKER) (test code = 761) 2.97 M/ L 4.63-6 .08 L HEMOGLOBIN (BEAKER) (test code = 410) 9.9 GM/DL 13.7-17.5 L HEMATOCRIT (BEAKER) (test code = 411) 29.6 % 40.1-51.0 L MEAN CORPUSCULAR VOLUME (BEAKER) (test code = 753) 99.7 fL 79. 0-92.2 H MEAN CORPUSCULAR HEMOGLOBIN (BEAKER) (test code = 751) 33.3 pg 25.7-32.2 H MEAN CORPUSCULAR HEMOGLOBIN CONC (BEAKER) (test code = 752) 33.4 GM/DL 32.3-36.5 RED CELL DISTRIBUTION WIDTH (BEAKER) (test code = 412) 18.4 % 11.6-14.4 H PLATELET COUNT (BEAKER) (test code = 756) 83 K/CU MM 150-450 L MEAN PLATELET VOLUME (BEAKER) (test code = 754) 11.9 fL 9.4-12 .4 NUCLEATED RED BLOOD CELLS (BEAKER) (test code = 413) 0 /100 WBC 0 -0 (CELLAVISION MANUAL DIFF)2020-05-12 07:47:00* Test Item Value Reference Range Interpretation Comments NEUTROPHILS - REL (CELLAVISION)(BEAKER) (test code = 2816) 96 % LYMPHOCYTES - REL (CELLAVISION)(BEAKER) (test code = 2817) 3 % BASOPHILS - REL (CELLAVISION)(BEAKER) (test code = 2820) 1 % NEUTROPHILS - ABS (CELLAVISION)(BEAKER) (test code = 2830) 4.70 K/ul 1.78-5.38 LYMPHOCYTES - ABS (CELLAVISION)(BEAKER) (test code = 2831) 0.15 K/ul 1.32-3.57 L BASOPHILS - ABS (CELLAVISION)(BEAKER) (test code = 2835) 0.05 K/uL 0.01-0.08 TOTAL COUNTED (BEAKER) (test code = 1351) 100 WBC MORPHOLOGY (BEAKER) (test code = 487) Normal PLT MORPHOLOGY (BEAKER) (test code = 486) Normal POLYCHROMATOPHILLIC RBCS(BEAKER) (test code = 478) 1+ few ANISOCYTOSIS (BEAKER) (test code = 961) 2+ moderate MICROCYTES (BEAKER) (test code = 965) 1+ few MACROCYTES (BEAKER) (test code = 964) 2+ moderate POIKILOCYTES (BEAKER) (test code = 966) 2+ moderate OVALOCYTES (BEAKER) (test code = 477) 2+ moderate TEAR DROP CELLS (BEAKER) (test code = 481) 1+ few ARTIFACT (CELLAVISION)(BEAKER) (test code = 3432) Present PLATELET CONCENTRATION (CELLAVISION)(BEAKER) (test code = 3438) Dec reased Commercial Intern ID - Delfina Rodriguez comments: Slide comments: Clostridium difficile GDH [id number] 07:04:00* Test Item Value Reference Range Interpretation Comments C. Difficle Toxin (test code = 5975771143) Negative Negative C. Difficile GDH Antigen (test code = 8120757843) Negative Nega tive No indication of Clostridium difficile infection and no colonization. Discontinue enteric isolation and therapy. MARLEN (test code = MARLEN) Testing performed by [employer] R apid Cassette Assay. For GDH, published sensitivity of the assay is 98.7% compared to cytotoxicity testing. For Toxin AB, published sensitivity is 87.8% and specificity 99.4% compared to cytotoxicity testing.Verification of kit performance was done by the [facility] Microbiology Lab prior to clinical use. Lab Interpretation (test code = 66520-7) [facility] [id number] 07:04:00* Test Item Value Reference Range Interpretation Comments CDT TOXIN (test code = 1860964508) Negative Negative CDT GDH ANTIGEN (test code = 7687016784) Negative Negative No indication of Clostridium difficile infection and no colonization. Discontinue enteric isolation and therapy. Testing performed by [employer] Rapid Cassette Assay. For GDH, published sensitivity of the assay is 98.7% compared to cytotoxicity testing. For Toxin AB, published sensitivity is 87.8% and specificity 99.4% compared to cytotoxicity testing.Ve rification of kit performance was done by the [facility] Microbiology Lab prior to cl inical use.Fecal [id number] 04:47:00* Test Item Value Reference Range Interpretation Comments Fecal Leukocytes (test code = 16495-6) <1+ Fecal leukocytes seen No fecal leukocytes seen A Lab Interpretation (test code = 32238-6) [facility]normal [facility]EC[facility] [id number] 04:47:00* Test Item Value Reference Range Interpretation Comments FECAL LEUKOCYTES (BEAKER) (test code = 992) <1+ Fecal leukoc ytes seen No fecal leukocytes seen A POCT-GLUCOSE [id number] 03:07:00* Test Item Value Reference Range Interpretation Comments POC-GLUCOSE METER (BEAKER) (test code = 1538) 239 mg/dL 70-110 H : TESTED AT [address], [address]: Commercial Intern/Financial Assistant ID = [id number] for AGUSTIN STEPHEN BASIC METABOLIC [id number] 02:36:00* Test Item Value Reference Range Interpretation Comments SODIUM (BEAKER) (test code = 381) 135 meq/L 136-145 L POTASSIUM (BEAKER) (test code = 379) 6.2 meq/L 3.5-5.1 HH No hemolysis CHLORIDE (BEAKER) (test code = 382) 95 meq/L 98-107 L CO2 (BEAKER) (test code = 355) 20 meq/L 22-29 L BLOOD UREA NITROGEN (BEAKER) (test code = 354) 85 mg/dL 7-21 H CREATININE (BEAKER) (test code = 358) 19.43 mg/dL 0.57-1.25 H GLUCOSE RANDOM (BEAKER) (test code = 652) 248 mg/dL 70-105 H CALCIUM (BEAKER) (test code = 697) 7.5 mg/dL 8.4-10.2 L EGFR (BEAKER) (test code = 1092) 3 mL/min/1.73 sq m ESTIMATED GFR IS NOT ACCURATE CREATININE CLEARANCE IN PREDICTING GLOMERULAR FILTRATION RATE. ESTIMATED GFR IS NOT APPLICABLE FOR DIALYSIS PATIENTS. Commercial Intern ID - PIAYA LPROTHROMBIN TIME/[id number] 02:30:00* Test Item Value Reference Range Interpretation Comments PROTIME (BEAKER) (test code = 759) 18.0 seconds 11.9-14.2 H INR (BEAKER) (test code = 370) 1.5 <=5.9 Effective 04/06/2019: PT Reference Range ChangeNew: 11.9-14.2 Previous: 11.7-14. 7RECOMMENDED COUMADIN/WARFARIN INR THERAPY RANGESSTANDARD DOSE: 2.0-3.0 Include s: PROPHYLAXIS for venous thrombosis, systemic embolization; TREATMENT for venou s thrombosis and/or pulmonary embolus.HIGH RISK: Target INR is 2.5-3.5 for patie nts wiht mechanical heart valves.HEPATIC FUNCTION [id number] 02:11:00* Test Item Value Reference Range Interpretation Comments TOTAL PROTEIN (BEAKER) (test code = 770) 6.6 gm/dL 6.0-8.3 ALBUMIN (BEAKER) (test code = 1145) 3.0 g/dL 3.5-5.0 L BILIRUBIN TOTAL (BEAKER) (test code = 377) 1.0 mg/dL 0.2-1.2 BILIRUBIN DIRECT (BEAKER) (test code = 706) 0.8 mg/dL 0.1-0.5 H ALKALINE PHOSPHATASE (BEAKER) (test code = 346) 161 U/L 40-150 H AST (SGOT) (BEAKER) (test code = 353) 155 U/L 5-34 H ALT (SGPT) (BEAKER) (test code = 347) 69 U/L 6-55 H Commercial Intern ID - VANESSA ZCatquqs3921-01-21 01:59:00* Test Item Value Reference Range Interpretation Comments Ammonia (test code = 92868-4) 33 18- 72 mol/L MARLEN (test code = MARLEN) Commercial Intern ID - PIAYA L Lab Interpretation (test code = 68875-7) [facility] 01:59:00* Test Item Value Reference Range Interpretation Comments AMMONIA (BEAKER) (test code = 348) 33 mol/L 18-72 Commercial Intern ID - VANESSA LLactate dehydrogenase (LDH)2020-05-12 00:59:00* Test Item Value Reference Range Interpretation Comments LDH (test code = 2532-0) 548 U/L 125-220 H MARLEN (test code = MARLEN) Commercial Intern ID - PIAYA L Lab Interpretation (test code = 93353-3) Abnormal [facility]ukjfd7250-67-16 00:59:00* Test Item Value Reference Range Interpretation Comments D-Dimer, Quant (test code = 51414-9) 6.40 <0.50 MG/L FEU H MARLEN (test code = MARLEN) Intended Use: The D-Dimer As say can be used to aid in the diagnosis of Deep Vein Thrombosis (DVT) and Pulmonary Embolism Disease (PED).In patients with low pre-test probability, various studies concerning STA Liatest D-dimer test have reported that with a cutoff value of 0.50 MG/L FEU, the Negative Predictive Value (NPV) regarding the exclusion of thrombosis is within 95-100% range. Lab Interpretation (test code = 17622-8) [facility]normal [facility]FYCNV6521-08-78 00:59:00* Test Item Value Reference Range Interpretation Comments D-DIMER QUANTITATIVE (BEAKER) (test code = 671) 6.40 MG/L FEU <0.50 H Intended Use: The D-Dimer Assay can be used to aid in the diagnosis of Deep Vein Thrombosis (DVT) and Pulmonary Embolism Disease (PED).In patients with low pre- test probability, various studies concerning STA Liatest D-dimer test have repor alethea that with a cutoff value of 0.50 MG/L FEU, the Negative Predictive Value (COOKER SODA V) regarding the exclusion of thrombosis is within 95-100% range.LACTATE DEHYDROGENASE (LDH)2020-05-12 00:59:00* Test Item Value Reference Range Interpretation Comments LACTATE DEHYDROGENASE (LIZETT) (test code = 635) 548 U/L 125-2 20 H Commercial Intern ID - PIAYA LCapillary blood glucose measurement by glucometer (mass/volume)2020-05-11 19:34:00* Test Item Value Reference Range Interpretation Comments Bedside Glucose (test code = 09347-6) 134 70-120 Meter ID: [id number] Specialty and Transplant Hospitalerum or plasma creatine kinase measurement (enzymatic activity/volume)2020-05-11 19:11:00* Test Item Value Reference Range Interpretation Comments Creatine Kinase (test code = 2157-6) 316 30-200 [facility] Hospitalerum or plasma creatine kinase MB measurement (mass/volume)2020-05-11 19:11:00* Test Item Value Reference Range Interpretation Comments Creatine Kinase MB (test code = 88667-7) 2.60 0-5.0 [facility] CenterT[facility] I measurement by highly sensitive enzyme yvmpzbaqnbx4759-49-94 19:11:00* Test Item Value Reference Range Interpretation Comments Troponin I (test code = 43912-0) 0.537 0-0.300 [facility] A[facility]OMEN/PELVIS [id number] 13:46:00 [facility] [address] [address] Patient Name: MARCO A ROBLES MR #: [id number] : 1970 Age/Sex: 49/M Req #: [id number] Adm Physician: AUSTEN WANG MD Ordered by: CORWIN DICKERSON MD, MD Report #: [id number] Location: [facility] Room/Bed: [place] [address] Procedure: [id number] CT/CT AB DOMEN/PELVIS WO Exam Date: 05/11/20 Exam Time: 1228 REPORT STATUS: Signed EXAM: CT A bdomen and Pelvis WITHOUT contrast INDICATION: Y NO IV, NO ORAL [id number] 1228 Y COMPARISON: Chest radiograph 05/11/2020 TECHNI QUE: Abdomen and pelvis were scanned utilizing a multidetector helical scanner from the lung base to the pubic symphysis without administration of IV contra st. Absence of intravenous contrast decreases sensitivity for detection of foc al lesions and vascular pathology. Coronal and sagittal reformations were obta ined. Routine protocol was performed. IV CONTRAST: None. ORAL CONTRAST: Water RADIATION DOSE: Total DLP: 812.1 mGy*cm Estimated effective dose: (DLP x 0.015 x size factor) mSv COMPLICATIONS: None FINDINGS: LINES and TUBES: None. LOWER THORAX: Multifocal peripheral groundglass consolidations correlate with the abnormality seen on chest radiograph. Coronary artery calcifications. HEPA TOBILIARY: No focal hepatic lesions. No biliary ductal dilation. GALL BLADDER: No radio-opaque stones or sludge. No wall thickening. SPLEEN: No splenomegaly. PANCREAS: No focal masses or ductal dilatation. ADREN ALS: No adrenal nodules KIDNEYS/URETERS: No hydronephrosis. No cystic or solid mass lesions. Diffuse vascular calcifications in both kidneys withou t suggestion of calcified stones. GI TRACT: No abnormal distention, wall th ickening, or evidence of bowel obstruction. Mild fat stranding surrounding th e cecum in the right lower quadrant on series 2, image 63. Appendix is normal . PELVIC ORGANS/BLADDER: Unremarkable. LYMPH NODES: No lymphadenopathy . VESSELS: Unremarkable. PERITONEUM / RETROPERITONEUM: No free air. Sm all ascites in the perihepatic and perisplenic regions. BONES: Unremarkab le. SOFT TISSUES: White neck fat-containing small supraumbilical hernia wit h a neck measuring 4.9 cm. There is an additional tiny supraumbilical hernia m easuring 1.2 cm. IMPRESSION: 1. Multifocal groundglass co nsolidations in the lower lobes correspond to the abnormality seen on chest ra diograph concerning for multifocal pneumonia, including viral pneumonia. Diffe rential diagnosis includes aspiration pneumonitis. 2. Mild fat stranding surrounding the cecum is nonspecific and may reflect focal area of colitis. No bowel obstruction. Signed by: Dr. Ilana Skaggs M.D. on 05/11/2020 1:51 PM Dictated By: ILNAA SKAGGS MD 1351 Transcribed By: ERUM on 01/26 1351 COPY TO: CORWIN DICKERSON CT BRAIN KI1994-31-35 13:03:[address] [address] Patient Name: MARCO A ROBLES MR #: [id number] : 1970 Age/Sex: 49/M Req #: [id number] Adm Physician: AUSTEN WANG MD Ordered by: CORWIN DICKERSON MD, MD Report #: [id number] Location: [facility] Room/Bed: [place] [address] Procedure: [id number] CT/CT CLARENCE MAYERS WO Exam Date: 05/11/20 Exam Time: 1228 REPORT STATUS: Signed EXAMINATION: Head CT HISTORY: Altered mental status, nausea and vomiting, patient missed dial ysis session. COMPARISON: None. TECHNIQUE: Helical axial images of the he ad were obtained. Reformatted coronal and sagittal images from the axial data. Dose modulation, iterative reconstruction, and/or weight based adjustment of the mA/kV was utilized to reduce the radiation dose to as low as reasonably a chievable. Image quality: Motion/streaking artifact limits the evaluation of t he skull base and posterior cranial fossa. FINDINGS: Parench yma: 1. No abnormal densities. 2. No mass or hemorrhage. No CT evidence o f acute territorial vascular insult. Extra-axial spaces:No abno rmal density. No extra-axial fluid collections Brain volume: Normal for age. Ventricles: No hydrocephalus or displacement. Arteries: Pr ominent atherosclerotic calcification of the intra and extracranial vessels, l ikely related to end-stage renal disease. Dural sinuses: No abnormal den sity. Foramen magnum: No mass, Chiari malformation, or basilar invaginat ion. Sella: No obvious mass. Paranasal/mastoid sinuses: Imaged portions unremarkable. Skull/Scalp: No lytic or blastic lesions. No fra ctures. IMPRESSION: No acute intracranial abnormalities, particularly no hemorrhage or acute cortical infarcts. Signed by: Nicki Lopez on 05/11/2020 1:05 PM Dictated By: MOOSE EUCEDA MD 1305 Transcribed By: ERUM on 05/11/20 1305 COPY TO: CORWIN DICKERSON CHEST SINGLE (PORTABLE)2020-05-11 12:49:00 [place] [address] Patient Name: MARCO A ROBLES MR #: [id number] : 1970 Age/Sex: 49/M Req #: [id number] Adm Physician: AUSTEN WANG MD Ordered by: CORWIN DICKERSON MD, MD Report #: [id number] Location: [facility] Room/Bed: [place] [address] Procedure: [id number] DX/CHEST SINGLE (PORTABLE) Exam Date: 05/11/20 Exam Time: 10 25 REPORT STATUS: Signed EXAMINA TION: CHEST SINGLE (PORTABLE) INDICATION: Y ERMD ORDER [id number] Y COMPARISON: Chest radiograph 11/22/2019 FINDINGS: AP view TUBES and LINES: None. LUNGS: Lungs are well inflated. Worsening bilateral reticular opacities. PLEURA: Blunt ing of the costophrenic angles may relate to trace effusion. No pneumothorax. HEART AND MEDIASTINUM: The cardiac silhouette is mildly enlarged but stabl e. BONES AND SOFT TISSUES: No acute osseous lesion. Soft tissues are unremarkable. UPPER ABDOMEN: No free air under the diaphragm. IMPR ESSION: Bilateral interstitial edema with or without superimposed infection. Signed by: Dr. Ilana Skaggs M.D. on 05/11/2020 12:51 PM Dictated By: ILANA SKAGGS MD 1251 Transcribed By: ERUM on 05/11/20 1251 COPY TO: CORWIN DICKERSON Blood leukocytes automated count (number/volume)2020-05-11 12:04:00* Test Item Value Reference Range Interpretation Comments White Blood Count (test code = 6690-2) 6.19 4.8-10.8 [facility] CenterBlood erythrocytes automated count (number/volume)2020-05-11 12:04:00* Test Item Value Reference Range Interpretation Comments Red Blood Count (test code = 789-8) 3.15 4.3-5.7 [facility] CenterBlood hemoglobin measurement (moles/volume)2020-05-11 12:04:00* Test Item Value Reference Range Interpretation Comments Hemoglobin (test code = 97646-4) 10.2 14.0-18.0 [facility] CenterAutomated blood hematocrit (volume fraction)2020-05-11 12:04:00* Test Item Value Reference Range Interpretation Comments Hematocrit (test code = 4544-3) 31.2 38.2-49.6 [facility] CenterAutomated erythrocyte mean corpuscular zxreis6010-78-15 12:04:00* Test Item Value Reference Range Interpretation Comments Mean Corpuscular Volume (test code = 787-2) 99.0 81-99 [facility] CenterAutomated erythrocyte mean corpuscular hemoglobin (mass per erythrocyte)2020-05-11 12:04:00* Test Item Value Reference Range Interpretation Comments Mean Corpuscular Hemoglobin (test code = 785-6) 32.4 28-32 [facility] CenterAutomated erythrocyte mean corpuscular hemoglobin concentration measurement (mass/volume)2020-05-11 12:04:00* Test Item Value Reference Range Interpretation Comments Mean Corpuscular Hemoglobin Concent (test code = 786-4) 32.7 31-35 [facility] CenterRDW CfiHs-Wvp1223-43-03 12:04:00* Test Item Value Reference Range Interpretation Comments Red Cell Distribution Width (test code = 65740-4) 18.4 11.7 -14.4 [facility] CenterAutomated blood platelet count (count/volume)2020-05-11 12:04:00* Test Item Value Reference Range Interpretation Comments Platelet Count (test code = 777-3) 90 140-360 [facility] CenterAutatrium health union wested blood segmented neutrophil count as percentage of total zmgbylogas4150-95-61 12:04:00* Test Item Value Reference Range Interpretation Comments Neutrophils (%) (Auto) (test code = 50766-3) 80.6 38.7-80.0 [facility] CenterAutomated blood lymphocyte count as percentage ot total irygirghdq7434-87-58 12:04:00* Test Item Value Reference Range Interpretation Comments Lymphocytes (%) (Auto) (test code = 736-9) 10.5 18.0-39.1 [facility] CenterAutomated blood monocyte count as percentage of total hfwdltfckk0961-61-78 12:04:00* Test Item Value Reference Range Interpretation Comments Monocytes (%) (Auto) (test code = 5905-5) 4.7 4.4-11.3 [facility] CenterAutomated blood eosinophil count as percentage of total geqzmzucvq0159-35-48 12:04:00* Test Item Value Reference Range Interpretation Comments Eosinophils (%) (Auto) (test code = 713-8) 3.4 0.0-6.0 [facility] bas[facility] count as percentage of total elvashvxut1306-16-53 12:04:00* Test Item Value Reference Range Interpretation Comments Basophils (%) (Auto) (test code = 706-2) 0.2 0.0-1.0 [facility] CenterFluoroscopic procedure less than one hour enwmeqsz2848-49-31 12:04:00* Test Item Value Reference Range Interpretation Comments IM GRANULOCYTES % (test code = IM GRANULOCYTES %) 0.6 0.0- 1.0 [facility] CenterAutomated blood neutrophil count 2020-05-11 12:04:00* Test Item Value Reference Range Interpretation Comments Neutrophils # (Auto) (test code = 751-8) 5.0 2.1-6.9 [facility] CenterBlood lymphocytes count (number/volume) 2020-05-11 12:04:00* Test Item Value Reference Range Interpretation Comments Lymphocytes # (Auto) (test code = 15574-7) 0.7 1.0-3.2 [facility] CenterBlood monocytes automated count (number/volume)2020-05-11 12:04:00* Test Item Value Reference Range Interpretation Comments Monocytes # (Auto) (test code = 742-7) 0.3 0.2-0.8 [facility] CenterAutomated blood eosinophil count 2020-05-11 12:04:00* Test Item Value Reference Range Interpretation Comments Eosinophils # (Auto) (test code = 711-2) 0.2 0.0-0.4 [facility] CenterAutomated blood basophil count (count/volume)2020-05-11 12:04:00* Test Item Value Reference Range Interpretation Comments Basophils # (Auto) (test code = 704-7) 0.0 0.0-0.1 [facility] CenterFluoroscopic procedure less than one hour axxlmacb4117-24-50 12:04:00* Test Item Value Reference Range Interpretation Comments Absolute Immature Granulocyte (auto (christian t code = Absolute Immature Granulocyte (auto) 0.04 0-0.1 [facility] CenterProthrombin time (PT) in platelet poor plasma by coagulation layyo0088-22-57 12:04:00* Test Item Value Reference Range Interpretation Comments Prothrombin Time (test code = 5902-2) 17.4 11.9-14.5 [facility] CenterINR in Platelet poor plasma by Coagulation bnjis9657-81-60 12:04:00* Test Item Value Reference Range Interpretation Comments Prothromb Time International Ratio (test code = 6301-6) 1.33 Oral Anticoagulant Therapy INR Values:1. Low Intensity Therapy 1.5 - 2.02 . Moderate Intensity Therapy 2.0 - 3.03. High Intensity Therapy(1) 2.5 - 3. 54. High Intensity Therapy(2) 3.0 - 4.05. Panic Value INR > 5.0 [facility] CenterActivated partial thromboplastin time (aPTT) in platelet poor plasma by coagulation hzmos2288-94-89 12:04:00* Test Item Value Reference Range Interpretation Comments Activated Partial Thromboplast Time (test code = 03587-2) 46.5 23.8-35.5 [facility] Hospitalerum or plasma sodium measurement (moles/volume)2020-05-11 12:04:00* Test Item Value Reference Range Interpretation Comments Sodium Level (test code = 2951-2) 142 136-145 [facility] Hospitalerum or plasma potassium measurement (moles/volume)2020-05-11 12:04:00* Test Item Value Reference Range Interpretation Comments Potassium Level (test code = 2823-3) 5.1 3.5-5.1 [facility] Hospitalerum or plasma chloride measurement (moles/volume)2020-05-11 12:04:00* Test Item Value Reference Range Interpretation Comments Chloride Level (test code = 2075-0) 100 98-107 [facility] Hospitalerum or plasma carbon dioxide, total measurement (moles/volume)2020-05-11 12:04:00* Test Item Value Reference Range Interpretation Comments Carbon Dioxide Level (test code = 2028-9) 22 22-29 [facility] Hospitalerum or plasma anion ejz7694-90-06 12:04:00* Test Item Value Reference Range Interpretation Comments Anion Gap (test code = 94059-8) 25.1 8-16 [facility] Hospitalerum or plasma urea nitrogen measurement (mass/volume)2020-05-11 12:04:00* Test Item Value Reference Range Interpretation Comments Blood Urea Nitrogen (test code = 3094-0) 76 7-26 [facility] Hospitalerum or plasma creatinine measurement (mass/volume)2020-05-11 12:04:00* Test Item Value Reference Range Interpretation Comments Creatinine (test code = 2160-0) 18.22 0.72-1.25 [facility] Hospitalerum or plasma urea nitrogen/creatinine mass bxuvz9758-59-60 12:04:00* Test Item Value Reference Range Interpretation Comments BUN/Creatinine Ratio (test code = 3097-3) 4 6-25 [facility] CenterEstimated glomerular filtration rate (GFR) amgntswuomrtj1031-82-93 12:04:00* Test Item Value Reference Range Interpretation Comments Estimat Glomerular Filtration Rate (test code = 542915112) 3 >60 Ranges were taken from the National Kidney Disease Education Program and the [facility] Kid[facility] Foundation literature.Reference ranges:60 or greater: Usaist82-33 ( for 3 consecutive months): Chronic kidney disease 15 or less: Kidney failureNorth [facility] Medical CenterGlucose fwxkmkwbrpm5681-92-58 12:04:00* Test Item Value Reference Range Interpretation Comments Glucose Level (test code = FNL2558) 66 74-118 [facility] Hospitalerum or plasma calcium measurement (mass/volume)2020-05-11 12:04:00* Test Item Value Reference Range Interpretation Comments Calcium Level (test code = 94324-8) 7.5 8.4-10.2 [facility] Hospitalerum or plasma magnesium measurement (mass/volume)2020-05-11 12:04:00* Test Item Value Reference Range Interpretation Comments Magnesium Level (test code = 95774-2) 2.2 1.3-2.1 [facility] Hospitalerum or plasma total bilirubin measurement (mass/volume)2020-05-11 12:04:00* Test Item Value Reference Range Interpretation Comments Total Bilirubin (test code = 1975-2) 1.0 0.2-1.2 [facility] CenterFluoroscopic procedure less than one hour bjstitbd1196-84-37 12:04:00* Test Item Value Reference Range Interpretation Comments Aspartate Amino Transf (AST/SGOT) (test code = Aspartate Amino Transf (AST/SGOT)) 298 5-34 [facility] Hospitalerum or plasma alanine aminotransferase measurement (enzymatic activity/volume)2020-05-11 12:04:00* Test Item Value Reference Range Interpretation Comments Alanine Aminotransferase (ALT/SGPT) (test code = 1742-6) 94 0-55 [facility] CenterAmmonia Ulk-hWov7934-59-03 12:04:00* Test Item Value Reference Range Interpretation Comments Ammonia (test code = 88168-4) 73 31-123 [facility] Hospitalerum or plasma protein measurement (mass/volume)2020-05-11 12:04:00* Test Item Value Reference Range Interpretation Comments Total Protein (test code = 2885-2) 6.6 6.5-8.1 [facility] Hospitalerum or plasma albumin measurement (mass/volume)2020-05-11 12:04:00* Test Item Value Reference Range Interpretation Comments Albumin (test code = 1751-7) 2.7 3.5-5.0 [facility] CenterPlasma globulin measurement (mass/volume) 2020-05-11 12:04:00* Test Item Value Reference Range Interpretation Comments Globulin (test code = 48334-0) 3.9 2.3-3.5 [facility] Hospitalerum or plasma albumin/globulin mass rkfus7676-02-87 12:04:00* Test Item Value Reference Range Interpretation Comments Albumin/Globulin Ratio (test code = 1759-0) 0.7 0.8-2.0 [facility] Hospitalerum or plasma alkaline phosphatase measurement (enzymatic activity/volume)2020-05-11 12:04:00* Test Item Value Reference Range Interpretation Comments Alkaline Phosphatase (test code = 6768-6) 153 40-150 [facility] CenterBNP Jxw-hFzx6509-30-03 12:04:00* Test Item Value Reference Range Interpretation Comments B-Type Natriuretic Peptide (test code = 00709-5) 905.3 0-100 [facility] Hospitalerum or plasma amylase measurement (enzymatic activity/volume)2020-05-11 12:04:00* Test Item Value Reference Range Interpretation Comments Amylase Level (test code = 1798-8) 61 25-125 [facility] Hospitalerum or plasma lipase measurement (enzymatic activity/volume)2020-05-11 12:04:00* Test Item Value Reference Range Interpretation Comments Lipase (test code = 3040-3) 87 8-78 [facility] Hospitalerum or plasma acetaminophen measurement by screening method (mass/volume)2020-05-11 12:04:00* Test Item Value Reference Range Interpretation Comments Acetaminophen Level (test code = 88107-4) < 3.0 10-30 [facility] Hospitalerum or plasma thyrotropin measurement by detection limit <= 0.005 miu/l (units/volume)2020-05-11 12:04:00* Test Item Value Reference Range Interpretation Comments Thyroid Stimulating Hormone (TSH) (test code = 22529-8) 1.323 0.350-4.940 [facility] Hospitalerum or plasma ethanol measurement (mass/volume)2020-05-11 12:04:00* Test Item Value Reference Range Interpretation Comments Ethyl Alcohol Level (test code = 5643-2) < 10.0 0.0-10.0 [facility] Hospitalerum or plasma salicylates measurement (mass/volume)2020-05-11 12:04:00* Test Item Value Reference Range Interpretation Comments Salicylates Level (test code = 4024-6) < 5.0 0-30 [facility] Coronavirus 2019 sDkM9758-53-34 22:06:00* Test Item Value Reference Range Interpretation Comments Novel Coronavirus 2019 nCoV (test code = COVID19) Positive Nega tive A Does patient have the clinical criteria consistent with COVID-19? YIs the patien t going to be discharged home? YBASIC METABOLIC IAOHK4921-84-73 08:03:00* Test Item Value Reference Range Interpretation Comments SODIUM (test code = NA) 136 mmol/L 136-145 N POTASSIUM (test code = K) 4.4 mmol/L 3.5-5.1 N CHLORIDE (test code = CL) 98.0 mmol/L 98-107 N CARBON DIOXIDE (test code = CO2) 24.0 mmol/L 21-32 N ANION GAP (test code = GAP) 18.4 10-20 N GLUCOSE (test code = GLU) 82 mg/dL 74-106 N BLOOD UREA NITROGEN (test code = BUN) 57 mg/dL 7-18 H GLOMERULAR FILTRATION RATE (test code = GFR) 3 mL/min >=60 Estimated GFR by using Modified MDRD formula.Chronic kidney disease is defined as either kidney damageor GFR <60 mL/min/1.73 m2 for >3 months. CREATININE (test code = CREAT) 16.30 mg/dL 0.7-1.3 H BUN/CREATININE RATIO (test code = BUN/CREA) 3.5 10-20 L CALCIUM (test code = CA) 7.5 mg/dL 8.5-10.1 L HEPATIC FUNCTION [id number] 08:03:00* Test Item Value Reference Range Interpretation Comments TOTAL PROTEIN (test code = PROT) 7.8 gram/dL 6.4-8.2 N ALBUMIN (test code = ALB) 3.0 g/dL 3.4-5.0 L GLOBULIN (test code = GLOB) 4.8 gram/dL 2.7-4.2 H ALBUMIN/GLOBULIN RATIO (test code = A/G) 0.6 0.75-1.50 L BILIRUBIN TOTAL (test code = BILT) 1.00 mg/dL 0.0-1.0 N BILIRUBIN DIRECT (test code = BILD) 0.51 mg/dL 0.0-0.20 H SGOT/AST (test code = AST) 55 IUnit/L 15-37 H SGPT/ALT (test code = ALT) 21 IUnit/L 12-78 N ALKALINE PHOSPHATASE TOTAL (test code = ALKP) 195 IUnit/L 45-117 H Note change in reference range due to change in reagent. GHVLZA3743-96-66 08:03:00* Test Item Value Reference Range Interpretation Comments LIPASE (test code = LIP) 347 U/L 73.0-393.0 N - XR CHEST 1 U9552-18-04 08:02:00 FAX: Austen Wang MD [phone] [place]: St: [facility] FAX: Jodie Rivera MD [phone] Name: MARCO A ROBLES [facility] : 1970 Age/S: 49/M [address] [facility] Unit #: [id number] Loc: [place] [address] Phys: Jodie Rivera MD Acct: [id number] Dis Date: Status: REG ER PHONE #: [phone] Exam Date: 05/07/2020 [facility] FAX #: [phone] Reason: ABDOMINAL PAIN EXAMS: CPT CODE: [id number] XR CHEST 1 V 51186 HISTORY: ABDOMINAL PAIN, dizziness TECHNIQUE: AP chest x-ray COMPARISON: 04/26/20 FINDINGS: Patchy bilateral airspace opacification, greater on the left. No evident pleural effusion. Normal heart size. Mediastinal silhouette is unremarkable. Thoracic spondylosis. IMPRESSION: Patchy bilateral airspace opacification; correlate with clinical evidence of pneumonia. LOCATION: [facility] at 0802 Reported and signed by: Kristy Mabry D.O. CC: Austen Wang MD; Jodie Rivera MD Technologist: RT MARNI(Elizabeth) Trnscrd Date/Time/By: 05/07/2020 (08) : By: [email or web address] Orig Print D/T: S: 05/07/2020 (0809) PAGE 1 Signed Report BASIC METABOLIC [id number] 07:52:00* Test Item Value Reference Range Interpretation Comments SODIUM (test code = NA) 136 mmol/L 136-145 N POTASSIUM (test code = K) 4.4 mmol/L 3.5-5.1 N CHLORIDE (test code = CL) 98.0 mmol/L 98-107 N CARBON DIOXIDE (test code = CO2) mmol/L 21-32 ANION GAP (test code = GAP) 10-20 GLUCOSE (test code = GLU) mg/dL 74-106 BLOOD UREA NITROGEN (test code = BUN) mg/dL 7-18 GLOMERULAR FILTRATION RATE (test code = GFR) mL/min >=60 CREATININE (test code = CREAT) mg/dL 0.7-1.3 BUN/CREATININE RATIO (test code = BUN/CREA) 10-20 CALCIUM (test code = CA) mg/dL 8.5-10.1 HEPATIC FUNCTION [id number] 07:52:00* Test Item Value Reference Range Interpretation Comments TOTAL PROTEIN (test code = PROT) gram/dL 6.4-8.2 ALBUMIN (test code = ALB) g/dL 3.4-5.0 GLOBULIN (test code = GLOB) gram/dL 2.7-4.2 ALBUMIN/GLOBULIN RATIO (test code = A/G) 0.75-1.50 BILIRUBIN TOTAL (test code = BILT) mg/dL 0.0-1.0 BILIRUBIN DIRECT (test code = BILD) mg/dL 0.0-0.20 SGOT/AST (test code = AST) IUnit/L 15-37 SGPT/ALT (test code = ALT) IUnit/L 12-78 ALKALINE PHOSPHATASE TOTAL (test code = ALKP) IUnit/L 45-117 [id number] 07:52:00* Test Item Value Reference Range Interpretation Comments LIPASE (test code = LIP) U/L 73.0-393.0 CBC W/O [id number] 07:39:00* Test Item Value Reference Range Interpretation Comments WHITE BLOOD CELL (test code = WBC) 6.8 K/mm3 4.5-12.5 N RED BLOOD CELL (test code = RBC) 2.86 mill/mm3 4.0-5.8 L HEMOGLOBIN (test code = HGB) 9.5 gram/dL 13.0-17.5 L HEMATOCRIT (test code = HCT) 28.6 % 42.0-52.0 L MEAN CELL VOLUME (test code = MCV) 100.0 fL 80-98 H MEAN CELL HGB (test code = MCH) 33.2 picogram 27.0-33.0 H MEAN CELL HGB CONCETRATION (test code = MCHC) 33.2 gram/dL 33.0-36. 0 N RED CELL DISTRIBUTION WIDTH (test code = RDW) 18.8 % 11.6-16. 2 H PLATELET COUNT (test code = PLT) 75 K/mm3 150-450 L MEAN PLATELET VOLUME (test code = MPV) 11.4 fL 6.7-11.0 H [id number] 12:28:00* Test Item Value Reference Range Interpretation Comments GLUBED (test code = GLUBED) 122 mg/dL 74-106 H Performed by certified refiner operator at [facility] [id number] 08:27:00* Test Item Value Reference Range Interpretation Comments GLUBED (test code = GLUBED) 119 mg/dL 74-106 H Performed by certified refiner operator at [facility] BASIC METABOLIC [id number] 07:56:00* Test Item Value Reference Range Interpretation Comments SODIUM (test code = NA) 137 mmol/L 136-145 N POTASSIUM (test code = K) 4.7 mmol/L 3.5-5.1 N CHLORIDE (test code = CL) 104.0 mmol/L 98-107 N CARBON DIOXIDE (test code = CO2) 25.0 mmol/L 21-32 N ANION GAP (test code = GAP) 12.7 10-20 N GLUCOSE (test code = GLU) 106 mg/dL 74-106 N BLOOD UREA NITROGEN (test code = BUN) 40 mg/dL 7-18 H GLOMERULAR FILTRATION RATE (test code = GFR) 5 mL/min >=60 Estimated GFR by using Modified MDRD formula.Chronic kidney disease is defined as either kidney damageor GFR <60 mL/min/1.73 m2 for >3 months. CREATININE (test code = CREAT) 10.40 mg/dL 0.7-1.3 H BUN/CREATININE RATIO (test code = BUN/CREA) 3.8 10-20 L CALCIUM (test code = CA) 7.7 mg/dL 8.5-10.1 L BASIC METABOLIC [id number] 07:20:00* Test Item Value Reference Range Interpretation Comments SODIUM (test code = NA) 137 mmol/L 136-145 N POTASSIUM (test code = K) 4.7 mmol/L 3.5-5.1 N CHLORIDE (test code = CL) 104.0 mmol/L 98-107 N CARBON DIOXIDE (test code = CO2) mmol/L 21-32 ANION GAP (test code = GAP) 10-20 GLUCOSE (test code = GLU) mg/dL 74-106 BLOOD UREA NITROGEN (test code = BUN) mg/dL 7-18 GLOMERULAR FILTRATION RATE (test code = GFR) mL/min >=60 CREATININE (test code = CREAT) mg/dL 0.7-1.3 BUN/CREATININE RATIO (test code = BUN/CREA) 10-20 CALCIUM (test code = CA) mg/dL 8.5-10.1 [id number] 06:54:00* Test Item Value Reference Range Interpretation Comments HEMOGLOBIN (test code = HGB) 8.2 gram/dL 13.0-17.5 L [id number] 05:27:00* Test Item Value Reference Range Interpretation Comments GLUBED (test code = GLUBED) 88 mg/dL 74-106 N Performed by certified refiner operator at [facility] [id number] 20:22:00* Test Item Value Reference Range Interpretation Comments GLUBED (test code = GLUBED) 142 mg/dL 74-106 H Performed by certified refiner operator at [facility] [id number] 18:52:00* Test Item Value Reference Range Interpretation Comments GLUBED (test code = GLUBED) 110 mg/dL 74-106 H Performed by certified refiner operator at [facility] [id number] 09:56:00* Test Item Value Reference Range Interpretation Comments LIPASE (test code = LIP) 154 U/L 73.0-393.0 N [id number] 08:19:00* Test Item Value Reference Range Interpretation Comments GLUBED (test code = GLUBED) 115 mg/dL 74-106 H Performed by certified refiner operator at [facility] BASIC METABOLIC [id number] 07:05:00* Test Item Value Reference Range Interpretation Comments SODIUM (test code = NA) 138 mmol/L 136-145 N POTASSIUM (test code = K) 4.9 mmol/L 3.5-5.1 N CHLORIDE (test code = CL) 104.0 mmol/L 98-107 N CARBON DIOXIDE (test code = CO2) 19.0 mmol/L 21-32 L ANION GAP (test code = GAP) 19.9 10-20 N GLUCOSE (test code = GLU) 140 mg/dL 74-106 H BLOOD UREA NITROGEN (test code = BUN) 59 mg/dL 7-18 H GLOMERULAR FILTRATION RATE (test code = GFR) 4 mL/min >=60 Estimated GFR by using Modified MDRD formula.Chronic kidney disease is defined as either kidney damageor GFR <60 mL/min/1.73 m2 for >3 months. CREATININE (test code = CREAT) 13.30 mg/dL 0.7-1.3 H BUN/CREATININE RATIO (test code = BUN/CREA) 4.4 10-20 L CALCIUM (test code = CA) 7.5 mg/dL 8.5-10.1 L BASIC METABOLIC [id number] 06:46:00* Test Item Value Reference Range Interpretation Comments SODIUM (test code = NA) 138 mmol/L 136-145 N POTASSIUM (test code = K) 4.9 mmol/L 3.5-5.1 N CHLORIDE (test code = CL) 104.0 mmol/L 98-107 N CARBON DIOXIDE (test code = CO2) mmol/L 21-32 ANION GAP (test code = GAP) 10-20 GLUCOSE (test code = GLU) mg/dL 74-106 BLOOD UREA NITROGEN (test code = BUN) mg/dL 7-18 GLOMERULAR FILTRATION RATE (test code = GFR) mL/min >=60 CREATININE (test code = CREAT) mg/dL 0.7-1.3 BUN/CREATININE RATIO (test code = BUN/CREA) 10-20 CALCIUM (test code = CA) mg/dL 8.5-10.1 [id number] 05:04:00* Test Item Value Reference Range Interpretation Comments GLUBED (test code = GLUBED) 145 mg/dL 74-106 H Performed by certified refiner operator at [facility] [id number] 20:06:00* Test Item Value Reference Range Interpretation Comments GLUBED (test code = GLUBED) 137 mg/dL 74-106 H Performed by certified refiner operator at [facility] [id number] 16:35:00* Test Item Value Reference Range Interpretation Comments GLUBED (test code = GLUBED) 97 mg/dL 74-106 N Performed by certified refiner operator at [facility] [id number] 12:14:00* Test Item Value Reference Range Interpretation Comments GLUBED (test code = GLUBED) 161 mg/dL 74-106 H [facility]ified Nurse~ [id number] 08:27:00* Test Item Value Reference Range Interpretation Comments GLUBED (test code = GLUBED) 109 mg/dL 74-106 H Performed by certified refiner operator at [facility] BASIC METABOLIC [id number] 06:13:00* Test Item Value Reference Range Interpretation Comments SODIUM (test code = NA) 137 mmol/L 136-145 N POTASSIUM (test code = K) 4.6 mmol/L 3.5-5.1 N CHLORIDE (test code = CL) 103.0 mmol/L 98-107 N CARBON DIOXIDE (test code = CO2) 20.0 mmol/L 21-32 L ANION GAP (test code = GAP) 18.6 10-20 N GLUCOSE (test code = GLU) 115 mg/dL 74-106 H BLOOD UREA NITROGEN (test code = BUN) 48 mg/dL 7-18 H GLOMERULAR FILTRATION RATE (test code = GFR) 5 mL/min >=60 Estimated GFR by using Modified MDRD formula.Chronic kidney disease is defined as either kidney damageor GFR <60 mL/min/1.73 m2 for >3 months. CREATININE (test code = CREAT) 11.30 mg/dL 0.7-1.3 H BUN/CREATININE RATIO (test code = BUN/CREA) 4.2 10-20 L CALCIUM (test code = CA) 7.9 mg/dL 8.5-10.1 L BASIC METABOLIC [id number] 06:04:00* Test Item Value Reference Range Interpretation Comments SODIUM (test code = NA) 137 mmol/L 136-145 N POTASSIUM (test code = K) 4.6 mmol/L 3.5-5.1 N CHLORIDE (test code = CL) 103.0 mmol/L 98-107 N CARBON DIOXIDE (test code = CO2) mmol/L 21-32 ANION GAP (test code = GAP) 10-20 GLUCOSE (test code = GLU) mg/dL 74-106 BLOOD UREA NITROGEN (test code = BUN) mg/dL 7-18 GLOMERULAR FILTRATION RATE (test code = GFR) mL/min >=60 CREATININE (test code = CREAT) mg/dL 0.7-1.3 BUN/CREATININE RATIO (test code = BUN/CREA) 10-20 CALCIUM (test code = CA) mg/dL 8.5-10.1 [id number] 05:47:00* Test Item Value Reference Range Interpretation Comments GLUBED (test code = GLUBED) 114 mg/dL 74-106 H Performed by certified refiner operator at [facility] [id number] 20:53:00* Test Item Value Reference Range Interpretation Comments GLUBED (test code = GLUBED) 196 mg/dL 74-106 H Performed by certified refiner operator at [facility] [id number] 16:47:00* Test Item Value Reference Range Interpretation Comments GLUBED (test code = GLUBED) 185 mg/dL 74-106 H Performed by certified refiner operator at [facility] [id number] 13:02:00* Test Item Value Reference Range Interpretation Comments GLUBED (test code = GLUBED) 183 mg/dL 74-106 H Performed by certified refiner operator at [facility] [id number] 22:45:00* Test Item Value Reference Range Interpretation Comments GLUBED (test code = GLUBED) 298 mg/dL 74-106 H Performed by certified refiner operator at [facility] [id number] 20:34:00* Test Item Value Reference Range Interpretation Comments GLUBED (test code = GLUBED) 354 mg/dL 74-106 H Performed by certified refiner operator at [facility] [id number] 16:05:00* Test Item Value Reference Range Interpretation Comments GLUBED (test code = GLUBED) 178 mg/dL 74-106 H Performed by certified refiner operator at [facility] [id number] 09:04:00* Test Item Value Reference Range Interpretation Comments GLUBED (test code = GLUBED) 140 mg/dL 74-106 H Performed by certified refiner operator at [facility] BASIC METABOLIC [id number] 08:18:00* Test Item Value Reference Range Interpretation Comments SODIUM (test code = NA) 140 mmol/L 136-145 N POTASSIUM (test code = K) 4.5 mmol/L 3.5-5.1 N CHLORIDE (test code = CL) 103.0 mmol/L 98-107 N CARBON DIOXIDE (test code = CO2) 24.0 mmol/L 21-32 N ANION GAP (test code = GAP) 17.5 10-20 N GLUCOSE (test code = GLU) 136 mg/dL 74-106 H BLOOD UREA NITROGEN (test code = BUN) 42 mg/dL 7-18 H GLOMERULAR FILTRATION RATE (test code = GFR) 5 mL/min >=60 Estimated GFR by using Modified MDRD formula.Chronic kidney disease is defined as either kidney damageor GFR <60 mL/min/1.73 m2 for >3 months. CREATININE (test code = CREAT) 11.00 mg/dL 0.7-1.3 H BUN/CREATININE RATIO (test code = BUN/CREA) 3.8 10-20 L CALCIUM (test code = CA) 7.6 mg/dL 8.5-10.1 L BASIC METABOLIC [id number] 08:11:00* Test Item Value Reference Range Interpretation Comments SODIUM (test code = NA) 140 mmol/L 136-145 N POTASSIUM (test code = K) 4.5 mmol/L 3.5-5.1 N CHLORIDE (test code = CL) 103.0 mmol/L 98-107 N CARBON DIOXIDE (test code = CO2) mmol/L 21-32 ANION GAP (test code = GAP) 10-20 GLUCOSE (test code = GLU) mg/dL 74-106 BLOOD UREA NITROGEN (test code = BUN) mg/dL 7-18 GLOMERULAR FILTRATION RATE (test code = GFR) mL/min >=60 CREATININE (test code = CREAT) mg/dL 0.7-1.3 BUN/CREATININE RATIO (test code = BUN/CREA) 10-20 CALCIUM (test code = CA) mg/dL 8.5-10.1 HGB [id number] 06:55:00* Test Item Value Reference Range Interpretation Comments HEMOGLOBIN (test code = HGB) 8.6 gram/dL 13.0-17.5 L HEMATOCRIT (test code = HCT) 26.2 % 42.0-52.0 L [id number] 20:12:00* Test Item Value Reference Range Interpretation Comments GLUBED (test code = GLUBED) 148 mg/dL 74-106 H Performed by certified refiner operator at [facility] [id number] 18:27:00* Test Item Value Reference Range Interpretation Comments GLUBED (test code = GLUBED) 180 mg/dL 74-106 H Performed by certified refiner operator at [facility] [id number] 12:00:00* Test Item Value Reference Range Interpretation Comments GLUBED (test code = GLUBED) 126 mg/dL 74-106 H Performed by certified refiner operator at [facility] - XR CHEST 1 [id number] 11:32:00 FAX: Austen Wang MD [phone] [place]: B St: [facility] FAX: Jevon Chaudhari MD [phone] Name: MARCO A RBOLES [facility] : 1970 Age/S: 49/M [address] Unit #: [id number] Loc: AprilRyan4030 [place] [address] Phys: Jevon Perry MD Acct: [id number] Dis Date: Status: ADM IN PHONE #: [phone] Exam Date: 04/26/2020 0948 FAX #: [phone] Reason: COUGHING BLOOD EXAMS: CPT CODE: [id number] XR CHEST 1 V 11948 REASON FOR EXAM: COUGHING BLOOD Exam Order Date: 04/26/2020 12:00 AM Ordering M.D.: Jevon Perry MD PROCEDURE: - XR CHEST 1 V COMPARISON: None FINDINGS: The lungs are hypoinflated but clear. There is no pleural effusion or pneumothorax. Pulmonary vascularity is within normal limits. Cardiomediastinal silhouette is spuriously enlarged by the low lung volumes. The mediastinal contours are within normal limits. M usculoskeletal structures are within normal limits. The visualized upper abdomen is within normal limits. IMPRESSION: No acute cardiopulmonary process. Location: [facility] at 1132 Reported and signed by: Davi Swartz MD CC: Austen Wang MD; Jevon Perry MD Technologist: Carmenciat Barnard, RT(R); Renae Rao RT(R) Trnscrd Date/Time/By: 04/26/2020 (1134) : By: JinaR R31 Orig Print D/T: S: 04/26/2020 (6598) PAGE 1 Signed Report GLUBED 2020-04-26 08:14:00* Test Item Value Reference Range Interpretation Comments GLUBED (test code = GLUBED) 90 mg/dL 74-106 N Performed by certified refiner operator at [facility] BASIC METABOLIC [id number] 06:45:00* Test Item Value Reference Range Interpretation Comments SODIUM (test code = NA) 140 mmol/L 136-145 N POTASSIUM (test code = K) 4.7 mmol/L 3.5-5.1 N CHLORIDE (test code = CL) 104.0 mmol/L 98-107 N CARBON DIOXIDE (test code = CO2) 24.0 mmol/L 21-32 N ANION GAP (test code = GAP) 16.7 10-20 N GLUCOSE (test code = GLU) 97 mg/dL 74-106 N BLOOD UREA NITROGEN (test code = BUN) 33 mg/dL 7-18 H RESULT VERIFIED BY REPEAT ANALYSIS GLOMERULAR FILTRATION RATE (test code = GFR) 6 mL/min >=60 Estimated GFR by using Modified MDRD formula.Chronic kidney disease is defined as either kidney damageor GFR <60 mL/min/1.73 m2 for >3 months. CREATININE (test code = CREAT) 8.90 mg/dL 0.7-1.3 H BUN/CREATININE RATIO (test code = BUN/CREA) 3.7 10-20 L CALCIUM (test code = CA) 8.2 mg/dL 8.5-10.1 L BASIC METABOLIC [id number] 05:54:00* Test Item Value Reference Range Interpretation Comments SODIUM (test code = NA) 140 mmol/L 136-145 N POTASSIUM (test code = K) 4.7 mmol/L 3.5-5.1 N CHLORIDE (test code = CL) 104.0 mmol/L 98-107 N CARBON DIOXIDE (test code = CO2) mmol/L 21-32 ANION GAP (test code = GAP) 10-20 GLUCOSE (test code = GLU) mg/dL 74-106 BLOOD UREA NITROGEN (test code = BUN) mg/dL 7-18 GLOMERULAR FILTRATION RATE (test code = GFR) mL/min >=60 CREATININE (test code = CREAT) mg/dL 0.7-1.3 BUN/CREATININE RATIO (test code = BUN/CREA) 10-20 CALCIUM (test code = CA) mg/dL 8.5-10.1 CBC W/O [id number] 05:26:00* Test Item Value Reference Range Interpretation Comments WHITE BLOOD CELL (test code = WBC) 6.3 K/mm3 4.5-12.5 N RED BLOOD CELL (test code = RBC) 2.69 mill/mm3 4.0-5.8 L HEMOGLOBIN (test code = HGB) 8.9 gram/dL 13.0-17.5 L HEMATOCRIT (test code = HCT) 27.3 % 42.0-52.0 L MEAN CELL VOLUME (test code = MCV) 101.5 fL 80-98 H MEAN CELL HGB (test code = MCH) 33.1 picogram 27.0-33.0 H MEAN CELL HGB CONCETRATION (test code = MCHC) 32.6 gram/dL 33.0-36. 0 L RED CELL DISTRIBUTION WIDTH (test code = RDW) 16.9 % 11.6-16. 2 H PLATELET COUNT (test code = PLT) 90 K/mm3 150-450 L MEAN PLATELET VOLUME (test code = MPV) 11.1 fL 6.7-11.0 H - US ABDOMEN [id number] 22:18:00 Name: MARCO A ROBLES [facility] : 1970 Age/S: 49 / M Rianna Enrique Unit #: [id number] Loc: [place] [address] Phys: Julia Costello Acct: [id number] Dis Date: Status: ADM IN PHONE #: [phone] Exam Date: 04/25/2020 183 FAX #: [phone] Reason: nausea/vomiting EXAMS: CPT CODE: [id number] US ABDOMEN LTD 14698 EXAM: Ultrasound abdomen, limited; INFORMATION: Nausea and vomiting; history of cirrhosis; FINDINGS: The liver shows a micronodular surface and coarse echotexture. No focal lesions. The gallbladder is of normal diameter and wall thickness; no stones; no dilatation of intra or extrahepatic bile ducts. No abnormalities of the pancreas. No ascites. The the right kidney measures 9.8 x 4.6 x 4 cm. Imaged portions of the IVC and abdominal aorta are unremarkable. IMPRESSION: 1. Cirrhosis. 2. No evidence of gallstones. Location code: [facility] at 2218 Reported and signed by: Angel Lyman M.D. CC: Austen Wang MD; Julia Costello Technologist: Jim Martinez Trnscb Date/Time: 04/25/2020 (2217) Court Orig Print D/T: S: 04/25/2020 (5229) Probe: PAGE 1 Signed Report [id number] 20:05:00* Test Item Value Reference Range Interpretation Comments GLUBED (test code = GLUBED) 125 mg/dL 74-106 H Performed by certified refiner operator at [facility] [id number] 16:13:00* Test Item Value Reference Range Interpretation Comments GLUBED (test code = GLUBED) 79 mg/dL 74-106 N Performed by certified refiner operator at [facility] HGB [id number] 12:45:00* Test Item Value Reference Range Interpretation Comments HEMOGLOBIN (test code = HGB) 8.3 gram/dL 13.0-17.5 L HEMATOCRIT (test code = HCT) 24.0 % 42.0-52.0 L BASIC METABOLIC [id number] 07:58:00* Test Item Value Reference Range Interpretation Comments SODIUM (test code = NA) 137 mmol/L 136-145 N POTASSIUM (test code = K) 6.1 mmol/L 3.5-5.1 H Re sults called to [facility] [id number] [employer]. 04/25/20 0757Critical results verified and read back by Nurse? Y CHLORIDE (test code = CL) 102.0 mmol/L 98-107 N CARBON DIOXIDE (test code = CO2) 22.0 mmol/L 21-32 N ANION GAP (test code = GAP) 19.1 10-20 N GLUCOSE (test code = GLU) 155 mg/dL 74-106 H BLOOD UREA NITROGEN (test code = BUN) 52 mg/dL 7-18 H GLOMERULAR FILTRATION RATE (test code = GFR) 5 mL/min >=60 Estimated GFR by using Modified MDRD formula.Chronic kidney disease is defined as either kidney damageor GFR <60 mL/min/1.73 m2 for >3 months. CREATININE (test code = CREAT) 11.90 mg/dL 0.7-1.3 H BUN/CREATININE RATIO (test code = BUN/CREA) 4.4 10-20 L CALCIUM (test code = CA) 8.3 mg/dL 8.5-10.1 L [id number] 20:21:00* Test Item Value Reference Range Interpretation Comments GLUBED (test code = GLUBED) 95 mg/dL 74-106 N Performed by certified refiner operator at [facility] [id number] 18:04:00* Test Item Value Reference Range Interpretation Comments GLUBED (test code = GLUBED) 124 mg/dL 74-106 H Performed by certified refiner operator at [facility] [id number] 17:20:00* Test Item Value Reference Range Interpretation Comments GLUBED (test code = GLUBED) 86 mg/dL 74-106 N Performed by certified refiner operator at [facility] [id number] 16:33:00* Test Item Value Reference Range Interpretation Comments GLUBED (test code = GLUBED) 91 mg/dL 74-106 N Performed by certified refiner operator at [facility] [id number] 12:22:00* Test Item Value Reference Range Interpretation Comments GLUBED (test code = GLUBED) 99 mg/dL 74-106 N Performed by certified refiner operator at [facility] Coronavirus 2019 nCoV [id number] 08:53:00* Test Item Value Reference Range Interpretation Comments Coronavirus 2019 nCoV Bedside (test code = COVNONPUIBED) Negative [id number] 08:45:00* Test Item Value Reference Range Interpretation Comments GLUBED (test code = GLUBED) 102 mg/dL 74-106 N Performed by certified refiner operator at [facility] HEPATITIS B CORE ANTIBODY,[id number] 08:11:00* Test Item Value Reference Range Interpretation Comments HEPATITIS B CORE ANTIBODY,TOT (test code = HBCAB) Negative Nega tive Performed At: [facility] [address] [id number] Ananda Rodríguez MD Ph:[phone] FE W/TOTAL IRON BINDING CAP.2020-04-24 06:38:00* Test Item Value Reference Range Interpretation Comments SERUM IRON (test code = IRON) 97 ug/dL 50-175 N TOTAL IRON BINDING CAPACITY (test code = TIBC) 210 mcg/dL 250-450 L IRON SATURATION (test code = FESAT) 46.19 % 13-45 H [id number] 06:38:00* Test Item Value Reference Range Interpretation Comments FERRITIN (test code = NARDA) 448 ng/mL 8-388 H BASIC METABOLIC [id number] 06:38:00* Test Item Value Reference Range Interpretation Comments SODIUM (test code = NA) 139 mmol/L 136-145 N POTASSIUM (test code = K) 4.8 mmol/L 3.5-5.1 N CHLORIDE (test code = CL) 103.0 mmol/L 98-107 N CARBON DIOXIDE (test code = CO2) 27.0 mmol/L 21-32 N ANION GAP (test code = GAP) 13.8 10-20 N GLUCOSE (test code = GLU) 151 mg/dL 74-106 H BLOOD UREA NITROGEN (test code = BUN) 35 mg/dL 7-18 H GLOMERULAR FILTRATION RATE (test code = GFR) 6 mL/min >=60 Estimated GFR by using Modified MDRD formula.Chronic kidney disease is defined as either kidney damageor GFR <60 mL/min/1.73 m2 for >3 months. CREATININE (test code = CREAT) 9.80 mg/dL 0.7-1.3 H BUN/CREATININE RATIO (test code = BUN/CREA) 3.6 10-20 L CALCIUM (test code = CA) 8.5 mg/dL 8.5-10.1 N BASIC METABOLIC [id number] 06:26:00* Test Item Value Reference Range Interpretation Comments SODIUM (test code = NA) 139 mmol/L 136-145 N POTASSIUM (test code = K) 4.8 mmol/L 3.5-5.1 N CHLORIDE (test code = CL) 103.0 mmol/L 98-107 N CARBON DIOXIDE (test code = CO2) mmol/L 21-32 ANION GAP (test code = GAP) 10-20 GLUCOSE (test code = GLU) mg/dL 74-106 BLOOD UREA NITROGEN (test code = BUN) mg/dL 7-18 GLOMERULAR FILTRATION RATE (test code = GFR) mL/min >=60 CREATININE (test code = CREAT) mg/dL 0.7-1.3 BUN/CREATININE RATIO (test code = BUN/CREA) 10-20 CALCIUM (test code = CA) mg/dL 8.5-10.1 CBC W/O [id number] 06:01:00* Test Item Value Reference Range Interpretation Comments WHITE BLOOD CELL (test code = WBC) 5.5 K/mm3 4.5-12.5 N RED BLOOD CELL (test code = RBC) 2.62 mill/mm3 4.0-5.8 L HEMOGLOBIN (test code = HGB) 8.6 gram/dL 13.0-17.5 L HEMATOCRIT (test code = HCT) 25.7 % 42.0-52.0 L MEAN CELL VOLUME (test code = MCV) 98.1 fL 80-98 H MEAN CELL HGB (test code = MCH) 32.8 picogram 27.0-33.0 N MEAN CELL HGB CONCETRATION (test code = MCHC) 33.5 gram/dL 33.0-36. 0 N RED CELL DISTRIBUTION WIDTH (test code = RDW) 15.5 % 11.6-16. 2 N PLATELET COUNT (test code = PLT) 98 K/mm3 150-450 L MEAN PLATELET VOLUME (test code = MPV) 11.0 fL 6.7-11.0 N AB HEPATITIS B [id number] 05:09:00* Test Item Value Reference Range Interpretation Comments AB HEPATITIS B SURFACE (test code = HBSAB) Reactive () Non Reactive: Inconsistent with immunity, less than 10 mIU/mL Reactive: Consistent with immunity, greater than 9.9 mIU/mL HEPATITIS B CORE ANTIBODY,[id number] 05:09:00* Test Item Value Reference Range Interpretation Comments HEPATITIS B CORE ANTIBODY,IGM (test code = HBCMAB) NEG ATIVE AB HEPATITIS B [id number] 05:09:00* Test Item Value Reference Range Interpretation Comments AB HEPATITIS B SURFACE (test code = HBSAB) Reactive () Non Reactive: Inconsistent with immunity, less than 10 mIU/mL Reactive: Consistent with immunity, greater than 9.9 mIU/mL HEPATITIS B CORE ANTIBODY,[id number] 05:09:00* Test Item Value Reference Range Interpretation Comments HEPATITIS B CORE ANTIBODY,IGM (test code = HBCMAB) Negative Neg ative Performed At: [facility] [address] [id number] Ananda Rodríguez MD Ph:[phone] [id number] 20:49:00* Test Item Value Reference Range Interpretation Comments GLUBED (test code = GLUBED) 135 mg/dL 74-106 H Performed by certified refiner operator at [facility] [id number] 16:33:00* Test Item Value Reference Range Interpretation Comments GLUBED (test code = GLUBED) 112 mg/dL 74-106 H [facility] [id number] 12:31:00* Test Item Value Reference Range Interpretation Comments GLUBED (test code = GLUBED) 94 mg/dL 74-106 N [facility] [id number] 08:06:00* Test Item Value Reference Range Interpretation Comments GLUBED (test code = GLUBED) 160 mg/dL 74-106 H Performed by certified refiner operator at [facility] [id number] 19:54:00* Test Item Value Reference Range Interpretation Comments GLUBED (test code = GLUBED) 205 mg/dL 74-106 H Performed by certified refiner operator at [facility] [id number] 16:28:00* Test Item Value Reference Range Interpretation Comments GLUBED (test code = GLUBED) 199 mg/dL 74-106 H Performed by certified refiner operator at [facility] [id number] 12:16:00* Test Item Value Reference Range Interpretation Comments GLUBED (test code = GLUBED) 156 mg/dL 74-106 H Performed by certified refiner operator at [facility] [id number] 08:10:00* Test Item Value Reference Range Interpretation Comments GLUBED (test code = GLUBED) 105 mg/dL 74-106 N Performed by certified refiner operator at [facility] COMPREHENSIVE METABOLIC [id number] 05:54:00* Test Item Value Reference Range Interpretation Comments SODIUM (test code = NA) 141 mmol/L 136-145 N POTASSIUM (test code = K) 5.1 mmol/L 3.5-5.1 N CHLORIDE (test code = CL) 104.0 mmol/L 98-107 N CARBON DIOXIDE (test code = CO2) 27.0 mmol/L 21-32 N ANION GAP (test code = GAP) 15.1 10-20 N GLUCOSE (test code = GLU) 131 mg/dL 74-106 H BLOOD UREA NITROGEN (test code = BUN) 29 mg/dL 7-18 H RESULT VERIFIED BY REPEAT ANALYSIS GLOMERULAR FILTRATION RATE (test code = GFR) 6 mL/min >=60 Estimated GFR by using Modified MDRD formula.Chronic kidney disease is defined as either kidney damageor GFR <60 mL/min/1.73 m2 for >3 months. CREATININE (test code = CREAT) 9.20 mg/dL 0.7-1.3 H BUN/CREATININE RATIO (test code = BUN/CREA) 3.2 10-20 L TOTAL PROTEIN (test code = PROT) 6.5 gram/dL 6.4-8.2 N ALBUMIN (test code = ALB) 2.7 g/dL 3.4-5.0 L GLOBULIN (test code = GLOB) 3.8 gram/dL 2.7-4.2 N ALBUMIN/GLOBULIN RATIO (test code = A/G) 0.7 0.75-1.50 L CALCIUM (test code = CA) 8.5 mg/dL 8.5-10.1 N BILIRUBIN TOTAL (test code = BILT) 0.90 mg/dL 0.0-1.0 N SGOT/AST (test code = AST) 26 IUnit/L 15-37 N SGPT/ALT (test code = ALT) 23 IUnit/L 12-78 N ALKALINE PHOSPHATASE TOTAL (test code = ALKP) 184 IUnit/L 45-117 H Note change in reference range due to change in reagent. COMPREHENSIVE METABOLIC [id number] 05:34:00* Test Item Value Reference Range Interpretation Comments SODIUM (test code = NA) 141 mmol/L 136-145 N POTASSIUM (test code = K) 5.1 mmol/L 3.5-5.1 N CHLORIDE (test code = CL) 104.0 mmol/L 98-107 N CARBON DIOXIDE (test code = CO2) mmol/L 21-32 ANION GAP (test code = GAP) 10-20 GLUCOSE (test code = GLU) mg/dL 74-106 BLOOD UREA NITROGEN (test code = BUN) mg/dL 7-18 GLOMERULAR FILTRATION RATE (test code = GFR) mL/min >=60 CREATININE (test code = CREAT) mg/dL 0.7-1.3 BUN/CREATININE RATIO (test code = BUN/CREA) 10-20 TOTAL PROTEIN (test code = PROT) gram/dL 6.4-8.2 ALBUMIN (test code = ALB) g/dL 3.4-5.0 GLOBULIN (test code = GLOB) gram/dL 2.7-4.2 ALBUMIN/GLOBULIN RATIO (test code = A/G) 0.75-1.50 CALCIUM (test code = CA) mg/dL 8.5-10.1 BILIRUBIN TOTAL (test code = BILT) mg/dL 0.0-1.0 SGOT/AST (test code = AST) IUnit/L 15-37 SGPT/ALT (test code = ALT) IUnit/L 12-78 ALKALINE PHOSPHATASE TOTAL (test code = ALKP) IUnit/L 45-117 [id number] 22:43:00* Test Item Value Reference Range Interpretation Comments GLUBED (test code = GLUBED) 224 mg/dL 74-106 H [facility] ref[facility] [id number] 17:14:00* Test Item Value Reference Range Interpretation Comments GLUBED (test code = GLUBED) 171 mg/dL 74-106 H Performed by certified refiner operator at [facility] - MRI LOW EXT W/O CONT [id number] 15:54:00 FAX: Austen Wang MD [phone] [place]: St: ADM Name: MARCO A VIGIL [facility] : [birth year] Age/S: 49/M [address] [facility] Unit #: [id number] Loc: [address] [address] Phys: Austen Wang MD Acct: [id number] Dis Date: Status: ADM IN PHONE #: [phone] Exam Date: 04/21/2020 1055 FAX #: [phone] Reason: LEFT FOOT WOUND EXAMS: CPT CODE: [id number] MRI L[place] EX[place] W/[place] [address] HISTORY: Left foot wound. COMPARISON: X-ray from April 20, 2020. Location: [facility]. MRI left foot without contrast: Patient is post resection at the distal end of the 2nd and the 4th metatarsal bones. The margins are sharp. No abnormal signal. Marked severe hallux valgus deformity of the 1st digit. Dorsal and lateral dislocation at the 3rd MTP joint appears ch ronic. Marrow signal is normal. The visualized tarsal bones also demonst rated normal marrow signal. Severely narrowed 1st MTP joint with irregula r margins however the signal is normal and appears chronic with subchondra l cysts. The Lisfranc ligament is intact. Visualized tendons are i ntact. Soft tissue swelling along the plantar medial margin of the 1st MTP joint which does not extend into the bone with no erosion noted. There is also soft tissue swelling of the 3rd phalanx as well sugge stive of cellulitis. No osteochondral defects of the talus. Sinus tarsi ligaments are unremarkable. Achilles enthesophyte. IMPRESSION: Postop changes as described at the distal end of the 2nd and t he 4th metatarsal bones without erosion or destruction. Severe hallux valgus deformity of the 1st digit. Plantar surface ulce ration and soft tissue swelling and cellulitis at the 1st MTP joint with out erosive or destructive changes. No osteomyelitis. The sesamoid bon es are spared as well. 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 No abscess collection. Electronically Signed by Lane Cash on 0 04/21/2020 at 1558 Reported and signed by: Addi Cash M.D. CC: Austen Wang MD Technologis t: TURNER VELASQUEZ,RT - MRI Trnscrd Date/Time/By: 04/21/2020 (4840) : By: [email or web address] Orig Print D/T: S: 04/21/2020 (1691) PAGE 1 Signed Report [id number] 12:26:00* Test Item Value Reference Range Interpretation Comments GLUBED (test code = GLUBED) 187 mg/dL 74-106 H Performed by certified refiner operator at [facility] [id number] 08:10:00* Test Item Value Reference Range Interpretation Comments GLUBED (test code = GLUBED) 116 mg/dL 74-106 H Performed by certified refiner operator at [facility] BASIC METABOLIC [id number] 05:09:00* Test Item Value Reference Range Interpretation Comments SODIUM (test code = NA) 140 mmol/L 136-145 N POTASSIUM (test code = K) 4.8 mmol/L 3.5-5.1 N CHLORIDE (test code = CL) 104.0 mmol/L 98-107 N CARBON DIOXIDE (test code = CO2) 28.0 mmol/L 21-32 N ANION GAP (test code = GAP) 12.8 10-20 N GLUCOSE (test code = GLU) 118 mg/dL 74-106 H BLOOD UREA NITROGEN (test code = BUN) 16 mg/dL 7-18 N GLOMERULAR FILTRATION RATE (test code = GFR) 9 mL/min >=60 Estimated GFR by using Modified MDRD formula.Chronic kidney disease is defined as either kidney damageor GFR <60 mL/min/1.73 m2 for >3 months. CREATININE (test code = CREAT) 6.50 mg/dL 0.7-1.3 H BUN/CREATININE RATIO (test code = BUN/CREA) 2.5 10-20 L CALCIUM (test code = CA) 8.6 mg/dL 8.5-10.1 N BASIC METABOLIC [id number] 04:59:00* Test Item Value Reference Range Interpretation Comments SODIUM (test code = NA) 140 mmol/L 136-145 N POTASSIUM (test code = K) 4.8 mmol/L 3.5-5.1 N CHLORIDE (test code = CL) 104.0 mmol/L 98-107 N CARBON DIOXIDE (test code = CO2) mmol/L 21-32 ANION GAP (test code = GAP) 10-20 GLUCOSE (test code = GLU) mg/dL 74-106 BLOOD UREA NITROGEN (test code = BUN) mg/dL 7-18 GLOMERULAR FILTRATION RATE (test code = GFR) mL/min >=60 CREATININE (test code = CREAT) mg/dL 0.7-1.3 BUN/CREATININE RATIO (test code = BUN/CREA) 10-20 CALCIUM (test code = CA) mg/dL 8.5-10.1 [id number] 21:55:00* Test Item Value Reference Range Interpretation Comments GLUBED (test code = GLUBED) 168 mg/dL 74-106 H Performed by certified refiner operator at [facility] [id number] 17:10:00* Test Item Value Reference Range Interpretation Comments GLUBED (test code = GLUBED) 188 mg/dL 74-106 H Performed by certified refiner operator at [facility] AG HEPAT B [id number] 16:20:00* Test Item Value Reference Range Interpretation Comments AG HEPAT B SURF (test code = HBSAG) Nonreactive Index Nonreactive [id number] 12:07:00* Test Item Value Reference Range Interpretation Comments GLUBED (test code = GLUBED) 140 mg/dL 74-106 H [facility] refiner [facility]~ C REACTIVE [id number] 11:29:00* Test Item Value Reference Range Interpretation Comments C REACTIVE PROTEIN (test code = CRP) 1.63 mg/dL 0-0.3 H [id number] 11:29:00* Test Item Value Reference Range Interpretation Comments ALBUMIN (test code = ALB) 3.0 g/dL 3.4-5.0 L SED [id number] 10:43:00* Test Item Value Reference Range Interpretation Comments SED RATE (test code = SEDW) 29 mm/hr 0-15 H WINTROBE METHOD: NORMAL RANGE FOR MEN: 0-9 MM/HR WOMAN: 0-20 MM/HR SED RATE [id number] 10:42:00* Test Item Value Reference Range Interpretation Comments SED RATE WESTERGREN (test code = SEDW) 29 mm/hr 0-15 H - XR FOOT 3 + V [id number] 09:34:00 FAX: Austen Wang MD [phone] [place]: St: ADM Name: MARCO A VIGIL [facility] : [birth year] Age/S: 49/M [address] [facility] Unit #: [id number] Loc: V.[address] [place] [address] Phys: Austen Wang MD Acct: [id number] Dis Date: Status: ADM IN PHONE #: [phone] Exam Date: 04/20/2020 0840 FAX #: [phone] Reason: fracture? osteomyelitis? EXAMS: CPT CODE: [id number] XR FOOT 3 + [place] [address] HISTORY: Fracture versus osteomyel itis. COMPARISON: None available. Location: [facility]. 3 views of the left foot: Erosive changes with complete loss of joint space at the first tarsal metatarsal joint. Hallux valgus d eformity of the first digit with severe medial angulation. Soft tissue swe lling at the first MTP joint. No obvious erosive or destructive change not ed. Patient is post resection at the distal end of the second and fourth metatarsal bone. Erosion and dislocation at this thir d MTP joint. The dislocation is along the dorsum. Chronic er osion of the distal fifth metatarsal bone. Os peroneum. Pes planus. Vascul ar calcifications and soft tissue swelling. IMPRESSION: Erosive changes as described above suggestive off osteomyelitis. at 0934 Reported and signed by: Addi Cash M.D. CC: Austen Boogie MD Technologist: Kiesha Garcia(R) Trnscrd Date/Time/By: 04/20/2020 (0958 ) : By: [email or web address] Orig Print D/T: S: 04/20/2020 (5521) PAGE 1 Signed Report [id number] 08:27:00* Test Item Value Reference Range Interpretation Comments GLUBED (test code = GLUBED) 164 mg/dL 74-106 H [facility] refiner [facility] [id number] 19:16:00* Test Item Value Reference Range Interpretation Comments GLYCOSYLATED HEMOGLOBIN (HA1C) (test code = GLYHGB) 6.0 % HbA1 SUGGESTED DIAGNOSIS: HbA1C (%) Diabetic >6.4Prediabetes 5.7 - 6.4Normal <5.7 ESTIMATED AVERAGE GLUCOSE (test code = EAG) 126 MG/DL LIPID PROFILE (CORONARY RISK)2020-04-19 19:15:00* Test Item Value Reference Range Interpretation Comments TRIGLYCERIDES (test code = TRIG) 196 mg/dL 20-150 H CHOLESTEROL (test code = CHOL) 91 mg/dL 0-200 N CHOLESTEROL/HDL RATIO (test code = CHOLHDL) 3.0 RATIO 0-4.9 N RISK ASSOCIATED WITH CHOL/HDL RATIOS: Risk Male Female1/2 AVERAGE 3.43 3.27AVERAGE 4.97 4.442X AVERAGE 9.55 7.053X AVERAGE 23.39 11.04 REFERENCE VALUE IS RELATED TO RISK LEVELS ASRECOMMENDED BY THE SVETA. HEART, LUNG, AND BLOOD INST. HDL CHOLESTEROL (test code = HDL) 30 mg/dL 40-60 L LIPOPROTEIN LDL (test code = LDL) 33 mg/dL 100-129 L Reference Interval: mg/dL mmol/L Optimal <100 <2.6Near/above optimal 100-129 2.6- 3.3Borderline High 130-159 3.4-4.1High 160-189 4.1-4.9Very High >=190 >=4.9========= This LDL result is a direct measurement.========= BASIC METABOLIC [id number] 19:13:00* Test Item Value Reference Range Interpretation Comments SODIUM (test code = NA) 139 mmol/L 136-145 N POTASSIUM (test code = K) 4.7 mmol/L 3.5-5.1 N CHLORIDE (test code = CL) 100.0 mmol/L 98-107 N CARBON DIOXIDE (test code = CO2) 30.0 mmol/L 21-32 N ANION GAP (test code = GAP) 13.7 10-20 N GLUCOSE (test code = GLU) 300 mg/dL 74-106 H BLOOD UREA NITROGEN (test code = BUN) 23 mg/dL 7-18 H GLOMERULAR FILTRATION RATE (test code = GFR) 7 mL/min >=60 Estimated GFR by using Modified MDRD formula.Chronic kidney disease is defined as either kidney damageor GFR <60 mL/min/1.73 m2 for >3 months. CREATININE (test code = CREAT) 8.20 mg/dL 0.7-1.3 H BUN/CREATININE RATIO (test code = BUN/CREA) 2.8 10-20 L CALCIUM (test code = CA) 9.4 mg/dL 8.5-10.1 N BASIC METABOLIC [id number] 19:10:00* Test Item Value Reference Range Interpretation Comments SODIUM (test code = NA) 139 mmol/L 136-145 N POTASSIUM (test code = K) 4.7 mmol/L 3.5-5.1 N CHLORIDE (test code = CL) 100.0 mmol/L 98-107 N CARBON DIOXIDE (test code = CO2) mmol/L 21-32 ANION GAP (test code = GAP) 10-20 GLUCOSE (test code = GLU) mg/dL 74-106 BLOOD UREA NITROGEN (test code = BUN) mg/dL 7-18 GLOMERULAR FILTRATION RATE (test code = GFR) mL/min >=60 CREATININE (test code = CREAT) mg/dL 0.7-1.3 BUN/CREATININE RATIO (test code = BUN/CREA) 10-20 CALCIUM (test code = CA) mg/dL 8.5-10.1 CBC W/AUTO [id number] 19:04:00* Test Item Value Reference Range Interpretation Comments WHITE BLOOD CELL (test code = WBC) 4.1 K/mm3 4.5-12.5 L RED BLOOD CELL (test code = RBC) 2.84 mill/mm3 4.0-5.8 L HEMOGLOBIN (test code = HGB) 9.1 gram/dL 13.0-17.5 L HEMATOCRIT (test code = HCT) 27.3 % 42.0-52.0 L MEAN CELL VOLUME (test code = MCV) 96.1 fL 80-98 N MEAN CELL HGB (test code = MCH) 32.0 picogram 27.0-33.0 N MEAN CELL HGB CONCETRATION (test code = MCHC) 33.3 gram/dL 33.0-36. 0 N RED CELL DISTRIBUTION WIDTH (test code = RDW) 14.8 % 11.6-16. 2 N RED CELL DISTRIBUTION WIDTH SD (test code = RDW-SD) 52.2 fL 37 .0-51.0 H PLATELET COUNT (test code = PLT) 91 K/mm3 150-450 L MEAN PLATELET VOLUME (test code = MPV) 10.3 fL 6.7-11.0 N NEUTROPHIL % (test code = NT%) 60.3 % 39.0-69.0 N IMMATURE GRANULOCYTE % (test code = IG%) 1.7 % 0.0-5.0 N LYMPHOCYTE % (test code = LY%) 22.0 % 25.0-55.0 L MONOCYTE % (test code = MO%) 11.4 % 0.0-10.0 H EOSINOPHIL % (test code = EO%) 3.9 % 0.0-5.0 N BASOPHIL % (test code = BA%) 0.7 % 0.0-1.0 N NUCLEATED RBC % (test code = NRBC%) 0.0 % 0-0 N NEUTROPHIL # (test code = NT#) 2.49 K/mm3 1.8-7.7 N IMMATURE GRANULOCYTE # (test code = IG#) 0.07 x10 3/uL 0-0.03 H LYMPHOCYTE # (test code = LY#) 0.91 K/mm3 1.0-5.0 L MONOCYTE # (test code = MO#) 0.47 K/mm3 0-0.8 N EOSINOPHIL # (test code = EO#) 0.16 K/mm3 0.0-0.5 N BASOPHIL # (test code = BA#) 0.03 K/mm3 0.0-0.2 N NUCLEATED RBC # (test code = NRBC#) 0.00 K/mm3 0.0-0.1 N MANUAL DIFF REQUIRED (test code = MDIFF) NO Alpha fetoprotein (AFP), tumor [id number] 11:33:00* Test Item Value Reference Range Interpretation Comments Alpha-Fetoprotein (test code = 1834-1) 3.7 ng/mL <10.0 MARLEN (test code = MARLEN) Commercial Intern ID - MARTITA M Lab Interpretation (test code = 35137-9) [facility]AFP), TUMOR [id number] 11:33:00* Test Item Value Reference Range Interpretation Comments ALPHA-FETOPROTEIN (BEAKER) (test code = 1094) 3.7 ng/mL <10.0 Commercial Intern ID - MARTITA MCOMPREHENSIVE METABOLIC [id number] 11:12:00* Test Item Value Reference Range Interpretation Comments TOTAL PROTEIN (BEAKER) (test code = 770) 7.7 gm/dL 6.0-8.3 ALBUMIN (BEAKER) (test code = 1145) 4.1 g/dL 3.5-5.0 ALKALINE PHOSPHATASE (BEAKER) (test code = 346) 240 U/L 40-150 H BILIRUBIN TOTAL (BEAKER) (test code = 377) 0.9 mg/dL 0.2-1.2 SODIUM (BEAKER) (test code = 381) 137 meq/L 136-145 POTASSIUM (BEAKER) (test code = 379) 4.8 meq/L 3.5-5.1 CHLORIDE (BEAKER) (test code = 382) 98 meq/L 98-107 CO2 (BEAKER) (test code = 355) 28 meq/L 22-29 BLOOD UREA NITROGEN (BEAKER) (test code = 354) 33 mg/dL 7-21 H CREATININE (BEAKER) (test code = 358) 8.60 mg/dL 0.57-1.25 H GLUCOSE RANDOM (BEAKER) (test code = 652) 146 mg/dL 70-105 H CALCIUM (BEAKER) (test code = 697) 9.8 mg/dL 8.4-10.2 AST (SGOT) (BEAKER) (test code = 353) 28 U/L 5-34 ALT (SGPT) (BEAKER) (test code = 347) 18 U/L 6-55 EGFR (BEAKER) (test code = 1092) 7 mL/min/1.73 sq m ESTIMATED GFR IS NOT ACCURATE CREATININE CLEARANCE IN PREDICTING GLOMERULAR FILTRATION RATE. ESTIMATED GFR IS NOT APPLICABLE FOR DIALYSIS PATIENTS. Commercial Intern ID - MARTITA MBILIRUBIN, [id number] 11:09:00* Test Item Value Reference Range Interpretation Comments BILIRUBIN DIRECT (BEAKER) (test code = 706) 0.5 mg/dL 0.1-0.5 Commercial Intern ID - MARTITA MPROTHROMBIN TIME/[id number] 11:06:00* Test Item Value Reference Range Interpretation Comments PROTIME (BEAKER) (test code = 759) 15.6 seconds 11.9-14.2 H INR (BEAKER) (test code = 370) 1.3 <=5.9 Effective 04/06/2019: PT Reference Range ChangeNew: 11.9-14.2 Previous: 11.7-14. 7RECOMMENDED COUMADIN/WARFARIN INR THERAPY RANGESSTANDARD DOSE: 2.0-3.0 Include s: PROPHYLAXIS for venous thrombosis, systemic embolization; TREATMENT for venou s thrombosis and/or pulmonary embolus.HIGH RISK: Target INR is 2.5-3.5 for patie nts wiht mechanical heart valves.CBC W/PLT COUNT & AUTO [id number] 10:58:00* Test Item Value Reference Range Interpretation Comments WHITE BLOOD CELL COUNT (BEAKER) (test code = 775) 4.9 K/ L 3.5- 10.5 RED BLOOD CELL COUNT (BEAKER) (test code = 761) 3.13 M/ L 4.63-6 .08 L HEMOGLOBIN (BEAKER) (test code = 410) 10.3 GM/DL 13.7-17.5 L HEMATOCRIT (BEAKER) (test code = 411) 30.5 % 40.1-51.0 L MEAN CORPUSCULAR VOLUME (BEAKER) (test code = 753) 97.4 fL 79. 0-92.2 H MEAN CORPUSCULAR HEMOGLOBIN (BEAKER) (test code = 751) 32.9 pg 25.7-32.2 H MEAN CORPUSCULAR HEMOGLOBIN CONC (BEAKER) (test code = 752) 33.8 GM/DL 32.3-36.5 RED CELL DISTRIBUTION WIDTH (BEAKER) (test code = 412) 14.6 % 11.6-14.4 H PLATELET COUNT (BEAKER) (test code = 756) 84 K/CU MM 150-450 L MEAN PLATELET VOLUME (BEAKER) (test code = 754) 10.3 fL 9.4-12 .4 NUCLEATED RED BLOOD CELLS (BEAKER) (test code = 413) 0 /100 WBC 0 -0 NEUTROPHILS RELATIVE PERCENT (BEAKER) (test code = 429) 67 % LYMPHOCYTES RELATIVE PERCENT (BEAKER) (test code = 430) 20 % MONOCYTES RELATIVE PERCENT (BEAKER) (test code = 431) 7 % EOSINOPHILS RELATIVE PERCENT (BEAKER) (test code = 432) 5 % BASOPHILS RELATIVE PERCENT (BEAKER) (test code = 437) 1 % NEUTROPHILS ABSOLUTE COUNT (BEAKER) (test code = 670) 3.27 K/ L 1.78-5.38 LYMPHOCYTES ABSOLUTE COUNT (BEAKER) (test code = 414) 0.98 K/ L 1.32-3.57 L MONOCYTES ABSOLUTE COUNT (BEAKER) (test code = 415) 0.36 K/ L 0. 30-0.82 EOSINOPHILS ABSOLUTE COUNT (BEAKER) (test code = 416) 0.24 K/ L 0.04-0.54 BASOPHILS ABSOLUTE COUNT (BEAKER) (test code = 417) 0.05 K/ L 0. 01-0.08 IMMATURE GRANULOCYTES-RELATIVE PERCENT (BEAKER) (test code = 2801) 0 % 0-1 PLATELET [id number] 03:58:00* Test Item Value Reference Range Interpretation Comments Platelet Estimate (test code = 71156-4) DECREASED ADEQUATE A MARLEN (test code = MARLEN) FASTING:NOFASTING: NO RAC (test code = RAC) Performing Organization Info rmation: Site ID: RGA Name: [facility] Address: [address] [place] [id number] Director: Oliverio Martinez Lab Interpretation (test code = 34807-1) Abnormal [facility] antibody, [id number] 11:39:00* Test Item Value Reference Range Interpretation Comments Mumps Ab Igg (test code = 1860054) 141 AU/mL REFERENCE RANGE: <9.00 AU/mL Interpretation<9.00 Negative9.00-10.99 Equivocal>10.99 Positive A positive result indicates that the patient hasantibody to mu mps virus. It does not differentiatebetween an active or past infection. The clinicaldiagnosis must be interpreted in conjunction withclinical signs and symptoms of the patient. MARLEN (test code = MARLEN) Performing Lab *[facility] [address] [place] [address] Efrain Ferguson MD [facility] Spot [id number] 07:30:00* Test Item Value Reference Range Interpretation Comments T-Spot TB (test code = 93085-2) Negative Neg Ctrl Spot Count (test code = 02959-2) 0 Panel A Spot (test code = 66133-9) 0 Panel B Spot (test code = 81759-1) [address] (test code = 12365-5) 0 Scan Result (test code = 4028231) [facility] antibody [id number] 19:17:00* Test Item Value Reference Range Interpretation Comments Rubeola Ab, Igg (test code = 50678-5) 91.3 AU/mL REFERENCE RANGE: <13.50 AU/mL AU/mL Interpretation <13.50 Negative 13.50-16.49 Equivocal >16.49 Positive A positive result indicates that the patient hasantibody to measles virus. It does notdifferentiate between an active or past infection.The clinical diagnosis must be interpreted inconjunction with clinical signs and symptoms ofthe patient. For additional information, please refer [email or web address].joiz/faq/UIE235(This link is being provided f or informational/educational purposes only.) MARLEN (test code = MARLEN) Performing Lab *[facility] [address] [place] [address] Efrain Ferguson MD [facility] HospitalVaricella zoster antibody, [id number] 05:28:00* Test Item Value Reference Range Interpretation Comments Varicella IgG (test code = 14512-8) 4.7 MARLEN (test code = MARLEN) VARICELLA ZOSTER RESULT INTE RPRETATIONS: <=0.8 Al Nonreactive: Presumed non-immune to VZV 0.9-1.0 Al Equivocal >=1.1 Al Reactive: Presumed immune to VZV [facility] HospitalRubella antibody, [id number] 05:28:00* Test Item Value Reference Range Interpretation Comments Rubella IgG Quant (test code = 8014-3) 47.0 <8.0 IU/mL H MARLEN (test code = MARLEN) Rubella IgG Result Interpret ation: </= 7.0 IU/mL Negative - Presumed non-immune 8.0 - 9.9 IU/mL Equivocal >= 10.0 IU/mL Positive - Presumed immune Lab Interpretation (test code = 88541-2) Abnormal [facility], [id number] 05:28:00* Test Item Value Reference Range Interpretation Comments RUBELLA IGG QUANTITATION (BEAKER) (test code = 572) 47.0 IU/mL <8 .0 H Rubella IgG Result Interpretation: </= 7.0 IU/mL Negative - Presumed non- immune 8.0 - 9.9 IU/mL Equivocal >= 10.0 IU/mL Positive - Presumed immune VARICELLA ZOSTER ANTIBODY, [id number] 05:28:00* Test Item Value Reference Range Interpretation Comments VARICELLA ZOSTER IGG (AL) (BEAKER) (test code = 3197) 4.7 VARICELLA ZOSTER RESULT INTERPRETATIONS: <=0.8 Al Nonreactive: Presumed non-immune to VZV 0.9-1.0 Al Equivocal >=1.1 Al Reactive: Presumed immune to VZVCryptococcal [id number] 03:46:00* Test Item Value Reference Range Interpretation Comments Cryptococcal Antigen, Serum (test code = 24820-6) Negative Negative, Interference Lab Interpretation (test code = 66579-8) Normal [facility] [id number] 03:46:00* Test Item Value Reference Range Interpretation Comments CRYPTOCOCCAL ANTIGEN, SERUM (BEAKER) (test code = 1828) Nega tive Negative, Interference [id number] 02:59:00* Test Item Value Reference Range Interpretation Comments RPR (test code = 61839-6) Nonreactive Nonreactive Lab Interpretation (test code = 16091-3) Normal [facility] 02:59:00* Test Item Value Reference Range Interpretation Comments RPR SCREEN (BEAKER) (test code = 420) Nonreactive Nonreactive RAD, CHEST, 2 [id number] 09:15:00Referring: Dr. [facility]:->cirrhosis, on dialysis, on liver and kidney transplant listFINAL REPORT TECHNIQUE: Frontal and lateral views of the chest. INDICATION: 49-year-old man for liver and renal transplant evaluation. CO MPARISON: Chest radiographs 11/13/2015. FINDINGS: LINES/TUBES: None. LUNGS: The l ungs are well inflated. No consolidation or pulmonary edema. PLEURA: No pleural effusion or pneumothorax. HEART AND MEDIASTINUM: Mildly prominent cardiac silhou ette. Atherosclerotic calcifications in the thoracic aorta. SOFT TISSUES AND BON ES: Unremarkable. IMPRESSION:No acute pulmonary abnormalities. Mildly prominent cardiac silhouette. Signed: Tasha Rameport Verified Date/Time: 12/15 09:15:11 Reading Location: [facility] Radiology Reading Room Electro nically signed by: TASHA RAM MD on 12/15/2019 09:15 AM XR chest 2 [id number] 09:15:00Interface, External Ris In - 12/15/2019 9:17 AM CSTFINAL REPORT TECHNIQUE: Frontal and lateral views of the chest. INDICATION: 49-year-old man for liver and renal transplant evaluation. COMPARISON: Chest radiographs 11/13/2015. FINDINGS: LINES/TUBES: None. LUNGS: The lungs are well inflated. No consolidation or pulmonary edema. PLEURA: No pleural effusion or pneumothorax. HEART AND MEDIASTINUM: Mildly prominent cardiac silhouette. Atherosclerotic calcifications in the thoracic aorta. SOFT TISSUES AND BONES: Unremarkable. IMPRESSION:No acute pulmonary abnormalities. Mildly prominent cardiac silhouette. Signed: Tasha Ram MDReport Verified Date/Time: 12/15/2019 09:15:11 Reading Location: [address] Radiology Reading [facility] IgG 2019-12-15 08:46:00* Test Item Value Reference Range Interpretation Comments Hep A IgG (test code = 99098-1) Reactive Nonreactive A MARLEN (test code = MARLEN) Commercial Intern ID - LM Lab Interpretation (test code = 80042-9) Abnormal [facility] ANTIBODY, [id number] 08:46:00* Test Item Value Reference Range Interpretation Comments HEPATITIS A IGG ANTIBODY (BEAKER) (test code = 2797) Reactive N onreactive Log Chipper ID - LMHepatitis C wdtlcivq1709-11-99 08:34:00* Test Item Value Reference Range Interpretation Comments Hepatitis C Ab (test code = 11578-2) Nonreactive Nonreactive MARLEN (test code = MARLEN) Commercial Intern ID - LM Lab Interpretation (test code = 46722-6) Normal [facility] Antigen with HIV-1/2 Gqvsjcod3613-51-58 08:34:00* Test Item Value Reference Range Interpretation Comments HIV-1 Antigen with HIV 1&2 Antibody (test code = 88531-9) No nreactive Nonreactive MARLEN (test code = MARLEN) Commercial Intern ID - LM Lab Interpretation (test code = 75958-0) Normal [facility]AT[facility]IS C [id number] 08:34:00* Test Item Value Reference Range Interpretation Comments HEPATITIS C ANTIBODY (BEAKER) (test code = 367) Nonreactive Nonrea ctive Commercial Intern ID - HIV-1 ANTIGEN WITH HIV-1/2 [id number] 08:34:00* Test Item Value Reference Range Interpretation Comments HIV-1 ANTIGEN WITH HIV 1\\T\\2 ANTIBODY (2) (BEAKER) ( st code = 2586) Nonreactive Nonreactive Commercial Intern ID - Hepatitis B surface ukhfxuys4269-08-60 08:33:00* Test Item Value Reference Range Interpretation Comments Hep B S Ab (test code = 49939-8) 173.8 <8.0 mIU/mL H MARLEN (test code = MARLEN) Commercial Intern ID - Lab Interpretation (test code = 49932-1) Abnormal [facility] core antibody, [id number] 08:33:00 * Test Item Value Reference Range Interpretation Comments Hep B Core Total Ab (test code = 83521-1) Nonreactive Nonreactive MARLEN (test code = MARLEN) Commercial Intern ID - Lab Interpretation (test code = 91075-0) Normal [facility] core antibody, [id number] 08:33:00* Test Item Value Reference Range Interpretation Comments Hep B C IgM (test code = 53240-7) Nonreactive Nonreactive MARLEN (test code = MARLEN) Commercial Intern ID - Lab Interpretation (test code = 29451-2) Normal [facility] SURFACE [id number] 08:33:00* Test Item Value Reference Range Interpretation Comments HEPATITIS B SURFACE ANTIGEN (2) (BEAKER) (test code = 2585) Nonreactive Nonreactive Commercial Intern ID - HEPATITIS B SURFACE [id number] 08:33:00* Test Item Value Reference Range Interpretation Comments HEPATITIS B SURFACE ANTIBODY (BEAKER) (test code = 647) 173.8 mIU/m L <8.0 H Commercial Intern ID - HEPATITIS B CORE ANTIBODY, [id number] 08:33:00* Test Item Value Reference Range Interpretation Comments HEPATITIS B CORE IGM ANTIBODY (BEAKER) (test code = 645) Non reactive Nonreactive Commercial Intern ID - LMHEPATITIS B CORE ANTIBODY, [id number] 08:33:00* Test Item Value Reference Range Interpretation Comments HEPATITIS B CORE TOTAL ANTIBODY (BEAKER) (test code = 497) N onreactive Nonreactive Commercial Intern ID - LMCOMPREHENSIVE METABOLIC [id number] 08:01:00* Test Item Value Reference Range Interpretation Comments TOTAL PROTEIN (BEAKER) (test code = 770) 7.7 gm/dL 6.0-8.3 ALBUMIN (BEAKER) (test code = 1145) 4.2 g/dL 3.5-5.0 ALKALINE PHOSPHATASE (BEAKER) (test code = 346) 266 U/L 40-150 H BILIRUBIN TOTAL (BEAKER) (test code = 377) 0.8 mg/dL 0.2-1.2 SODIUM (BEAKER) (test code = 381) 136 meq/L 136-145 POTASSIUM (BEAKER) (test code = 379) 4.4 meq/L 3.5-5.1 CHLORIDE (BEAKER) (test code = 382) 96 meq/L 98-107 L CO2 (BEAKER) (test code = 355) 28 meq/L 22-29 BLOOD UREA NITROGEN (BEAKER) (test code = 354) 36 mg/dL 7-21 H CREATININE (BEAKER) (test code = 358) 7.77 mg/dL 0.57-1.25 H GLUCOSE RANDOM (BEAKER) (test code = 652) 254 mg/dL 70-105 H CALCIUM (BEAKER) (test code = 697) 9.7 mg/dL 8.4-10.2 AST (SGOT) (BEAKER) (test code = 353) 28 U/L 5-34 ALT (SGPT) (BEAKER) (test code = 347) 20 U/L 6-55 EGFR (BEAKER) (test code = 1092) 7 mL/min/1.73 sq m ESTIMATED GFR IS NOT ACCURATE CREATININE CLEARANCE IN PREDICTING GLOMERULAR FILTRATION RATE. ESTIMATED GFR IS NOT APPLICABLE FOR DIALYSIS PATIENTS. Commercial Intern ID - LMBILIRUBIN, [id number] 08:00:00* Test Item Value Reference Range Interpretation Comments BILIRUBIN DIRECT (BEAKER) (test code = 706) 0.4 mg/dL 0.1-0.5 Commercial Intern ID - LMPROTHROMBIN TIME/[id number] 07:48:00* Test Item Value Reference Range Interpretation Comments PROTIME (BEAKER) (test code = 759) 16.2 seconds 11.9-14.2 H INR (BEAKER) (test code = 370) 1.3 <=5.9 Effective 04/06/2019: PT Reference Range ChangeNew: 11.9-14.2 Previous: 11.7-14. 7RECOMMENDED COUMADIN/WARFARIN INR THERAPY RANGESSTANDARD DOSE: 2.0-3.0 Include s: PROPHYLAXIS for venous thrombosis, systemic embolization; TREATMENT for venou s thrombosis and/or pulmonary embolus.HIGH RISK: Target INR is 2.5-3.5 for patie nts wiht mechanical heart valves.CBC W/PLT COUNT & AUTO [id number] 07:46:00* Test Item Value Reference Range Interpretation Comments WHITE BLOOD CELL COUNT (BEAKER) (test code = 775) 4.4 K/ L 3.5- 10.5 RED BLOOD CELL COUNT (BEAKER) (test code = 761) 3.33 M/ L 4.63-6 .08 L HEMOGLOBIN (BEAKER) (test code = 410) 10.9 GM/DL 13.7-17.5 L HEMATOCRIT (BEAKER) (test code = 411) 32.0 % 40.1-51.0 L MEAN CORPUSCULAR VOLUME (BEAKER) (test code = 753) 96.1 fL 79. 0-92.2 H MEAN CORPUSCULAR HEMOGLOBIN (BEAKER) (test code = 751) 32.7 pg 25.7-32.2 H MEAN CORPUSCULAR HEMOGLOBIN CONC (BEAKER) (test code = 752) 34.1 GM/DL 32.3-36.5 RED CELL DISTRIBUTION WIDTH (BEAKER) (test code = 412) 13.5 % 11.6-14.4 PLATELET COUNT (BEAKER) (test code = 756) 68 K/CU MM 150-450 L MEAN PLATELET VOLUME (BEAKER) (test code = 754) 10.7 fL 9.4-12 .4 NUCLEATED RED BLOOD CELLS (BEAKER) (test code = 413) 0 /100 WBC 0 -0 NEUTROPHILS RELATIVE PERCENT (BEAKER) (test code = 429) 81 % LYMPHOCYTES RELATIVE PERCENT (BEAKER) (test code = 430) 13 % MONOCYTES RELATIVE PERCENT (BEAKER) (test code = 431) 3 % EOSINOPHILS RELATIVE PERCENT (BEAKER) (test code = 432) 1 % BASOPHILS RELATIVE PERCENT (BEAKER) (test code = 437) 1 % NEUTROPHILS ABSOLUTE COUNT (BEAKER) (test code = 670) 3.60 K/ L 1.78-5.38 LYMPHOCYTES ABSOLUTE COUNT (BEAKER) (test code = 414) 0.59 K/ L 1.32-3.57 L MONOCYTES ABSOLUTE COUNT (BEAKER) (test code = 415) 0.15 K/ L 0. 30-0.82 L EOSINOPHILS ABSOLUTE COUNT (BEAKER) (test code = 416) 0.02 K/ L 0.04-0.54 L BASOPHILS ABSOLUTE COUNT (BEAKER) (test code = 417) 0.03 K/ L 0. 01-0.08 IMMATURE GRANULOCYTES-RELATIVE PERCENT (BEAKER) (test code = 2801) 1 % 0-1 Influenza Virus Types A,B [id number] 19:52:00* Test Item Value Reference Range Interpretation Comments Influenza Virus Types A,B Antigen (test code = 28406-6) NEGATIVE NEGATIVE [facility] CenterGroup A Streptococcus [id number] 19:52:00* Test Item Value Reference Range Interpretation Comments Group A Streptococcus Screen (test code = 22102-9) NEGATIVE NEG ATIVE [facility] CenterCHEST 2 [id number] 19:32:00 [facility] [address] [place] [address] Patient Name: MARCO A ROBLES MR #: [id number] : 1970 Age/Sex: 49/M Req #: [id number] Adm Physician: Ordered by: LE ROBERTS NP Report #: [id number] Location: ER Room/Bed: Procedure: [id number] DX/CHEST 2 VIEWS Exam Date: 11/22/19 Exam Time: 1919 REPORT STATUS: Signed EXAMINAT ION: CHEST 2 VIEWS INDICATION: Without COUGH [id number] COMPARISON: September 07, 2019 FINDINGS: TUBES and LINES: None. LUNGS: Perihilar peribronchial hazy opacity could be due to bronchi tis. No consolidated pneumonia PLEURA: No pleural effusion or pneumotho rax. HEART AND MEDIASTINUM: The cardiomediastinal silhouette is unremarkab le. BONES AND SOFT TISSUES: No acute osseous lesion. Soft tissues are unremarkable. UPPER ABDOMEN: No free air under the diaphragm. I MPRESSION: Perihilar peribronchial hazy opacity could be due to bronchitis. No consolidated pneumonia Signed by: Dr. Gurinder Skinner M.D. on 0 7:33 PM Dictated By: GURINDER SKINNER MD, MD 32 Transcribed By: ERUM on 11/22/191932 COPY TO: LE ROBERTS NP Influenza virus A and B antigen identification by yjsvwxnbxdjfboxhvv7352-56-00 17:50:00* Test Item Value Reference Range Interpretation Comments Influenza Virus Types A,B Antigen (test code = 65367-6) NEGATIVE NEGATIVE [facility] pyogenes antigen detection in wbgsli4830-45-11 17:50:00* Test Item Value Reference Range Interpretation Comments Group A Streptococcus Screen (test code = 80444-3) NEGATIVE NEG ATIVE [facility] CenterGLUBED2019-12-17 10:06:00* Test Item Value Reference Range Interpretation Comments GLUBED (test code = GLUBED) 105 mg/dL 74-106 N Performed by certified refiner operator at [facility] U/S, ABDOMINAL, [id number] 10:09:00Referring: Dr. [facility]Saint [facility]:->Screening for malignant neoplasmFINAL REPORT Abdominal ultrasound Clinical History: Cirrhosis, HCC screening Comparison: CT from 02/01/2019 abdominal ultrasound from 11/13/2015 Findings:Sonographic evaluation of the the abdomen is performed. The pancreas is not well-visualized secondary to adjacent bowel gas. The visualized portion appears unremarkable. The liver is enlarged measuring 20.6 cm in length and d emonstrates a nodular contour compatible with patient's history of cirrhosis. No focal hepatic lesion is identified. The main portal vein is patent with antegra de flow and diameter of 1.9 cm. The gallbladder is unremarkable. There is no yumiko dence for cholelithiasis, gallbladder wall thickening, or pericholecystic fluid. There is no intra or extrahepatic biliary ductal dilatation. The common bile du ct measures 5 mm. Sonographic Caraballo sign is negative. The spleen is enlarged me asuring 17.5 cm in length but otherwise demonstrates an unremarkable sonographic appearance. The right kidney is decreased in size measuring 8.4 cm in length wi th cortical thickness of 1.0 cm. The left kidney measures 10.7 cm in length with cortical thickness of 1.1 cm. Cortical echogenicity is mildly increased. There is no evidence for solid renal mass, hydronephrosis, or shadowing calculi. The v isualized portions of the IVC and aorta are within normal limits. There is no as cites or pleural fluid visualized. Impression: 1. Sonographic findings suggesti ve of of cirrhosis and sequela of portal hypertension. No focal hepatic abnormal ity is identified. 2. Findings suggestive of chronic medical renal disease. Sign ed: William Kowalski MDReport Verified Date/Time: 09/20/2019 10:09:17 Reading Loca tion: [facility] 10th [facility] Radiology Reading Room abdomen [id number] 10:09:00 Interface, External Ris In - 09/20/2019 10:11 AM CSTFINAL REPORT PATIENT ID: [id number] Abdominal ultrasound Clinical History: Cirrhosis, HCC screening Compari son: CT from 02/01/2019 abdominal ultrasound from 11/13/2015 Findings:Sonographic e valuation of the the abdomen is performed. The pancreas is not well-visualized s econdary to adjacent bowel gas. The visualized portion appears unremarkable. The liver is enlarged measuring 20.6 cm in length and demonstrates a nodular contour compatible with patient's history of cirrhosis. No focal hepatic lesion is sanford ntified. The main portal vein is patent with antegrade flow and diameter of 1.9 cm. The gallbladder is unremarkable. There is no evidence for cholelithiasis, ga llbladder wall thickening, or pericholecystic fluid. There is no intra or extrah epatic biliary ductal dilatation. The common bile duct measures 5 mm. Sonographi c Caraballo sign is negative. The spleen is enlarged measuring 17.5 cm in length bu t otherwise demonstrates an unremarkable sonographic appearance. The right kidne y is decreased in size measuring 8.4 cm in length with cortical thickness of 1.0 cm. The left kidney measures 10.7 cm in length with cortical thickness of 1.1 c m. Cortical echogenicity is mildly increased. There is no evidence for solid sharan al mass, hydronephrosis, or shadowing calculi. The visualized portions of the IV C and aorta are within normal limits. There is no ascites or pleural fluid visua lized. Impression: 1. Sonographic findings suggestive of of cirrhosis and seque la of portal hypertension. No focal hepatic abnormality is identified. 2. Findin gs suggestive of chronic medical renal disease. Signed: William Kowalski MDReport V erified Date/Time: 09/20/2019 10:09:17 Reading Location: [address] Radiolog y Reading Room [facility] Natriuretic Vhbwqaf7624-08-24 17:50:00* Test Item Value Reference Range Interpretation Comments B-Type Natriuretic Peptide (test code = 22808-6) 964.2 0-100 H [facility] CenterCreatine Kinase [id number] 17:50:00* Test Item Value Reference Range Interpretation Comments Creatine Kinase MB (test code = 51424-5) 2.10 0-5.0 [facility] CenterTroponin [id number] 17:50:00* Test Item Value Reference Range Interpretation Comments Troponin I (test code = LRO2638) 0.024 0-0.300 [facility] CenterB-Type Natriuretic Ehccohj2234-62-66 17:50:00* Test Item Value Reference Range Interpretation Comments B-Type Natriuretic Peptide (test code = 78693-1) 964.2 0-100 H [facility] CenterCreatine Kinase [id number] 17:50:00* Test Item Value Reference Range Interpretation Comments Creatine Kinase MB (test code = 50940-5) 2.10 0-5.0 [facility] CenterTroponin [id number] 17:50:00* Test Item Value Reference Range Interpretation Comments Troponin I (test code = VMC9172) 0.024 0-0.300 [facility] Hospitalodium Udpys8135-93-80 17:22:00* Test Item Value Reference Range Interpretation Comments Sodium Level (test code = 2951-2) 138 136-145 [facility] CenterPotassium Aqbzp2385-57-88 17:22:00* Test Item Value Reference Range Interpretation Comments Potassium Level (test code = 2823-3) 4.0 3.5-5.1 [facility] CenterChloride Qbpgk8014-03-17 17:22:00* Test Item Value Reference Range Interpretation Comments Chloride Level (test code = 2075-0) 100 98-107 [facility] CenterCarbon Dioxide Qlogn6207-61-11 17:22:00* Test Item Value Reference Range Interpretation Comments Carbon Dioxide Level (test code = 2028-9) 26 22-29 [facility] CenterAnion [id number] 17:22:00* Test Item Value Reference Range Interpretation Comments Anion Gap (test code = 94387-6) 16.0 8-16 [facility] CenterBlood Urea [id number] 17:22:00* Test Item Value Reference Range Interpretation Comments Blood Urea Nitrogen (test code = 3094-0) 25 7-26 [facility] CenterCreatinine2019-10-30 17:22:00* Test Item Value Reference Range Interpretation Comments Creatinine (test code = 2160-0) 6.32 0.72-1.25 H [facility] CenterBUN/Creatinine Digpl9037-52-37 17:22:00* Test Item Value Reference Range Interpretation Comments BUN/Creatinine Ratio (test code = 3097-3) 4 6-25 L [facility] CenterEstimat Glomerular Filtration Rate 2019-09-07 17:22:00* Test Item Value Reference Range Interpretation Comments Estimat Glomerular Filtration Rate (test code = 048267828) 9 >60 L Ranges were taken from the National Kidney Disease Education Program and the [facility] Foundation literature.Reference ranges:60 or greater: Gcdxfy06-20 ( for 3 consecutive months): Chronic kidney disease 15 or less: Kidney failureNorth [facility] Medical CenterGlucose Pygqa2967-45-28 17:22:00* Test Item Value Reference Range Interpretation Comments Glucose Level (test code = AFE2116) 95 74-118 [facility] CenterCalcium Qwfhb3533-62-35 17:22:00* Test Item Value Reference Range Interpretation Comments Calcium Level (test code = 24947-5) 9.2 8.4-10.2 [facility] CenterMagnesium Amifu9864-33-64 17:22:00* Test Item Value Reference Range Interpretation Comments Magnesium Level (test code = 81660-6) 2.1 1.3-2.1 [facility] CenterTotal Rzbpyfxvz4544-59-49 17:22:00* Test Item Value Reference Range Interpretation Comments Total Bilirubin (test code = 1975-2) 0.5 0.2-1.2 [facility] CenterAspartate Amino Transf (AST/SGOT) 2019-09-07 17:22:00* Test Item Value Reference Range Interpretation Comments Aspartate Amino Transf (AST/SGOT) (test code = Aspartate Amino Transf (AST/SGOT)) 26 5-34 [facility] CenterAlanine Aminotransferase (ALT/SGPT) 2019-09-07 17:22:00* Test Item Value Reference Range Interpretation Comments Alanine Aminotransferase (ALT/SGPT) (test code = 1742-6) 17 0-55 [facility] CenterTotal Rklmpqc8599-24-86 17:22:00* Test Item Value Reference Range Interpretation Comments Total Protein (test code = 2885-2) 7.5 6.5-8.1 [facility] CenterAlbumin2019-10-30 17:22:00* Test Item Value Reference Range Interpretation Comments Albumin (test code = 1751-7) 3.4 3.5-5.0 L [facility] CenterGlobulin2019-10-30 17:22:00* Test Item Value Reference Range Interpretation Comments Globulin (test code = 51481-0) 4.1 2.3-3.5 H [facility] CenterAlbumin/Globulin Vwoco1174-52-44 17:22:00 * Test Item Value Reference Range Interpretation Comments Albumin/Globulin Ratio (test code = 1759-0) 0.8 0.8-2.0 [facility] CenterAlkaline Vqtvwrdleyh0628-72-79 17:22:00* Test Item Value Reference Range Interpretation Comments Alkaline Phosphatase (test code = 6768-6) 201 40-150 H [facility] CenterCreatine Fhvalv5429-97-75 17:22:00* Test Item Value Reference Range Interpretation Comments Creatine Kinase (test code = 2157-6) 58 30-200 [facility] Hospitalodium Jlxqd5024-49-53 17:22:00* Test Item Value Reference Range Interpretation Comments Sodium Level (test code = 2951-2) 138 136-145 [facility] CenterPotassium Ccxxz1893-11-77 17:22:00* Test Item Value Reference Range Interpretation Comments Potassium Level (test code = 2823-3) 4.0 3.5-5.1 [facility] CenterChloride Wtpou5869-63-74 17:22:00* Test Item Value Reference Range Interpretation Comments Chloride Level (test code = 2075-0) 100 98-107 [facility] CenterCarbon Dioxide Zlorp7104-35-79 17:22:00* Test Item Value Reference Range Interpretation Comments Carbon Dioxide Level (test code = 2028-9) 26 22-29 [facility] CenterAnion Uhx0647-48-04 17:22:00* Test Item Value Reference Range Interpretation Comments Anion Gap (test code = 42707-6) 16.0 8-16 [facility] CenterBlood Urea Ihkytoro4962-88-89 17:22:00* Test Item Value Reference Range Interpretation Comments Blood Urea Nitrogen (test code = 3094-0) 25 7-26 [facility] CenterCreatinine2019-10-30 17:22:00* Test Item Value Reference Range Interpretation Comments Creatinine (test code = 2160-0) 6.32 0.72-1.25 H [facility] CenterBUN/Creatinine Fhpdf3919-06-17 17:22:00* Test Item Value Reference Range Interpretation Comments BUN/Creatinine Ratio (test code = 3097-3) 4 6-25 L [facility] CenterEstimat Glomerular Filtration Rate 2019-09-07 17:22:00* Test Item Value Reference Range Interpretation Comments Estimat Glomerular Filtration Rate (test code = 564767428) 9 >60 L Ranges were taken from the National Kidney Disease Education Program and the [facility] Foundation literature.Reference ranges:60 or greater: Bmlsmt24-36 ( for 3 consecutive months): Chronic kidney disease 15 or less: Kidney failureNorth [facility] Medical CenterGlucose Wegba0625-35-89 17:22:00* Test Item Value Reference Range Interpretation Comments Glucose Level (test code = WAI7815) 95 74-118 [facility] CenterCalcium Dsbfg5526-59-73 17:22:00* Test Item Value Reference Range Interpretation Comments Calcium Level (test code = 28962-9) 9.2 8.4-10.2 [facility] CenterMagnesium Nuljk6087-00-79 17:22:00* Test Item Value Reference Range Interpretation Comments Magnesium Level (test code = 78719-1) 2.1 1.3-2.1 [facility] CenterTotal Voxwxlsku1939-54-02 17:22:00* Test Item Value Reference Range Interpretation Comments Total Bilirubin (test code = 1975-2) 0.5 0.2-1.2 [facility] CenterAspartate Amino Transf (AST/SGOT) 2019-09-07 17:22:00* Test Item Value Reference Range Interpretation Comments Aspartate Amino Transf (AST/SGOT) (test code = Aspartate Amino Transf (AST/SGOT)) 26 5-34 [facility] CenterAlanine Aminotransferase (ALT/SGPT) 2019-09-07 17:22:00* Test Item Value Reference Range Interpretation Comments Alanine Aminotransferase (ALT/SGPT) (test code = 1742-6) 17 0-55 [facility] CenterTotal Meejcuy2614-91-59 17:22:00* Test Item Value Reference Range Interpretation Comments Total Protein (test code = 2885-2) 7.5 6.5-8.1 [facility] CenterAlbumin2019-10-30 17:22:00* Test Item Value Reference Range Interpretation Comments Albumin (test code = 1751-7) 3.4 3.5-5.0 L [facility] CenterGlobulin2019-10-30 17:22:00* Test Item Value Reference Range Interpretation Comments Globulin (test code = 20350-8) 4.1 2.3-3.5 H [facility] CenterAlbumin/Globulin Gnluc8395-02-61 17:22:00 * Test Item Value Reference Range Interpretation Comments Albumin/Globulin Ratio (test code = 1759-0) 0.8 0.8-2.0 [facility] CenterAlkaline Hkvrsegbykf9213-63-46 17:22:00* Test Item Value Reference Range Interpretation Comments Alkaline Phosphatase (test code = 6768-6) 201 40-150 H [facility] CenterCreatine Yakroi9360-12-58 17:22:00* Test Item Value Reference Range Interpretation Comments Creatine Kinase (test code = 2157-6) 58 30-200 [facility] CenterProthrombin Ktra2258-26-68 17:13:00* Test Item Value Reference Range Interpretation Comments Prothrombin Time (test code = 5902-2) 14.4 11.9-14.5 [facility] CenterProthromb Time International Ratio 2019-09-07 17:13:00* Test Item Value Reference Range Interpretation Comments Prothromb Time International Ratio (test code = 6301-6) 1.07 Oral Anticoagulant Therapy INR Values:1. Low Intensity Therapy 1.5 - 2.02 . Moderate Intensity Therapy 2.0 - 3.03. High Intensity Therapy(1) 2.5 - 3. 54. High Intensity Therapy(2) 3.0 - 4.05. Panic Value INR > 5.0 [facility] CenterActivated Partial Thromboplast Time 2019-09-07 17:13:00* Test Item Value Reference Range Interpretation Comments Activated Partial Thromboplast Time (test code = 08578-7) 44.5 23.8-35.5 H [facility] CenterProthrombin [id number] 17:13:00* Test Item Value Reference Range Interpretation Comments Prothrombin Time (test code = 5902-2) 14.4 11.9-14.5 [facility] CenterProthromb Time International Ratio 2019-09-07 17:13:00* Test Item Value Reference Range Interpretation Comments Prothromb Time International Ratio (test code = 6301-6) 1.07 Oral Anticoagulant Therapy INR Values:1. Low Intensity Therapy 1.5 - 2.02 . Moderate Intensity Therapy 2.0 - 3.03. High Intensity Therapy(1) 2.5 - 3. 54. High Intensity Therapy(2) 3.0 - 4.05. Panic Value INR > 5.0 [facility] CenterActivated Partial Thromboplast Time 2019-09-07 17:13:00* Test Item Value Reference Range Interpretation Comments Activated Partial Thromboplast Time (test code = 94839-5) 44.5 23.8-35.5 H [facility] CenterWhite Blood [id number] 17:09:00* Test Item Value Reference Range Interpretation Comments White Blood Count (test code = 6690-2) 5.06 4.8-10.8 [facility] CenterRed Blood [id number] 17:09:00* Test Item Value Reference Range Interpretation Comments Red Blood Count (test code = 789-8) 3.12 4.3-5.7 L [facility] CenterHemoglobin2019-10-30 17:09:00* Test Item Value Reference Range Interpretation Comments Hemoglobin (test code = 40765-7) 10.4 14.0-18.0 L [facility] CenterHematocrit2019-10-30 17:09:00* Test Item Value Reference Range Interpretation Comments Hematocrit (test code = 4544-3) 29.9 38.2-49.6 L [facility] CenterMean Corpuscular [id number] 17:09:00* Test Item Value Reference Range Interpretation Comments Mean Corpuscular Volume (test code = 787-2) 95.8 81-99 [facility] CenterMean Corpuscular Sidpzlldke4464-20-12 17:09:00* Test Item Value Reference Range Interpretation Comments Mean Corpuscular Hemoglobin (test code = 785-6) 33.3 28-32 H [facility] CenterMean Corpuscular Hemoglobin Concent 2019-09-07 17:09:00* Test Item Value Reference Range Interpretation Comments Mean Corpuscular Hemoglobin Concent (test code = 786-4) 34.8 31-35 [facility] CenterRed Cell Distribution [id number] 17:09:00* Test Item Value Reference Range Interpretation Comments Red Cell Distribution Width (test code = 95933-5) 13.5 11.7 -14.4 [facility] CenterPlatelet [id number] 17:09:00* Test Item Value Reference Range Interpretation Comments Platelet Count (test code = 777-3) 94 140-360 L [facility] CenterNeutrophils (%) (Auto)2019-09-07 17:09:00 * Test Item Value Reference Range Interpretation Comments Neutrophils (%) (Auto) (test code = 87336-7) 68.2 38.7-80.0 [facility] CenterLymphocytes (%) (Auto)2019-09-07 17:09:00 * Test Item Value Reference Range Interpretation Comments Lymphocytes (%) (Auto) (test code = 736-9) 18.2 18.0-39.1 [facility] CenterMonocytes (%) (Auto)2019-09-07 17:09:00* Test Item Value Reference Range Interpretation Comments Monocytes (%) (Auto) (test code = 5905-5) 6.9 4.4-11.3 [facility] CenterEosinophils (%) (Auto)2019-09-07 17:09:00 * Test Item Value Reference Range Interpretation Comments Eosinophils (%) (Auto) (test code = 713-8) 5.5 0.0-6.0 [facility] CenterBasophils (%) (Auto)2019-09-07 17:09:00* Test Item Value Reference Range Interpretation Comments Basophils (%) (Auto) (test code = 706-2) 1.0 0.0-1.0 [facility] CenterIM GRANULOCYTES %2019-09-07 17:09:00* Test Item Value Reference Range Interpretation Comments IM GRANULOCYTES % (test code = IM GRANULOCYTES %) 0.2 0.0- 1.0 [facility] CenterNeutrophils # (Auto)2019-09-07 17:09:00* Test Item Value Reference Range Interpretation Comments Neutrophils # (Auto) (test code = 751-8) 3.5 2.1-6.9 [facility] CenterLymphocytes # (Auto)2019-09-07 17:09:00* Test Item Value Reference Range Interpretation Comments Lymphocytes # (Auto) (test code = 07487-7) 0.9 1.0-3.2 L [facility] CenterMonocytes # (Auto)2019-09-07 17:09:00* Test Item Value Reference Range Interpretation Comments Monocytes # (Auto) (test code = 742-7) 0.4 0.2-0.8 [facility] CenterEosinophils # (Auto)2019-09-07 17:09:00* Test Item Value Reference Range Interpretation Comments Eosinophils # (Auto) (test code = 711-2) 0.3 0.0-0.4 [facility] CenterBasophils # (Auto)2019-09-07 17:09:00* Test Item Value Reference Range Interpretation Comments Basophils # (Auto) (test code = 704-7) 0.1 0.0-0.1 [facility] CenterAbsolute Immature Granulocyte (auto 2019-09-07 17:09:00* Test Item Value Reference Range Interpretation Comments Absolute Immature Granulocyte (auto (christian t code = Absolute Immature Granulocyte (auto) 0.01 0-0.1 [facility] CenterWhite Blood [id number] 17:09:00* Test Item Value Reference Range Interpretation Comments White Blood Count (test code = 6690-2) 5.06 4.8-10.8 [facility] CenterRed Blood Oizfy6384-91-23 17:09:00* Test Item Value Reference Range Interpretation Comments Red Blood Count (test code = 789-8) 3.12 4.3-5.7 L [facility] CenterHemoglobin2019-10-30 17:09:00* Test Item Value Reference Range Interpretation Comments Hemoglobin (test code = 69252-8) 10.4 14.0-18.0 L [facility] CenterHematocrit2019-10-30 17:09:00* Test Item Value Reference Range Interpretation Comments Hematocrit (test code = 4544-3) 29.9 38.2-49.6 L [facility] CenterMean Corpuscular Bmppje5281-18-19 17:09:00* Test Item Value Reference Range Interpretation Comments Mean Corpuscular Volume (test code = 787-2) 95.8 81-99 [facility] CenterMean Corpuscular Capjwuzngh0895-89-91 17:09:00* Test Item Value Reference Range Interpretation Comments Mean Corpuscular Hemoglobin (test code = 785-6) 33.3 28-32 H [facility] CenterMean Corpuscular Hemoglobin Concent 2019-09-07 17:09:00* Test Item Value Reference Range Interpretation Comments Mean Corpuscular Hemoglobin Concent (test code = 786-4) 34.8 31-35 [facility] CenterRed Cell Distribution Ixlvs9812-93-08 17:09:00* Test Item Value Reference Range Interpretation Comments Red Cell Distribution Width (test code = 55688-5) 13.5 11.7 -14.4 [facility] CenterPlatelet Yuyid8811-67-22 17:09:00* Test Item Value Reference Range Interpretation Comments Platelet Count (test code = 777-3) 94 140-360 L [facility] CenterNeutrophils (%) (Auto)2019-09-07 17:09:00 * Test Item Value Reference Range Interpretation Comments Neutrophils (%) (Auto) (test code = 78907-4) 68.2 38.7-80.0 [facility] CenterLymphocytes (%) (Auto)2019-09-07 17:09:00 * Test Item Value Reference Range Interpretation Comments Lymphocytes (%) (Auto) (test code = 736-9) 18.2 18.0-39.1 [facility] CenterMonocytes (%) (Auto)2019-09-07 17:09:00* Test Item Value Reference Range Interpretation Comments Monocytes (%) (Auto) (test code = 5905-5) 6.9 4.4-11.3 [facility] CenterEosinophils (%) (Auto)2019-09-07 17:09:00 * Test Item Value Reference Range Interpretation Comments Eosinophils (%) (Auto) (test code = 713-8) 5.5 0.0-6.0 [facility] CenterBasophils (%) (Auto)2019-09-07 17:09:00* Test Item Value Reference Range Interpretation Comments Basophils (%) (Auto) (test code = 706-2) 1.0 0.0-1.0 [facility] CenterIM GRANULOCYTES %2019-09-07 17:09:00* Test Item Value Reference Range Interpretation Comments IM GRANULOCYTES % (test code = IM GRANULOCYTES %) 0.2 0.0- 1.0 [facility] CenterNeutrophils # (Auto)2019-09-07 17:09:00* Test Item Value Reference Range Interpretation Comments Neutrophils # (Auto) (test code = 751-8) 3.5 2.1-6.9 [facility] CenterLymphocytes # (Auto)2019-09-07 17:09:00* Test Item Value Reference Range Interpretation Comments Lymphocytes # (Auto) (test code = 77525-0) 0.9 1.0-3.2 L [facility] CenterMonocytes # (Auto)2019-09-07 17:09:00* Test Item Value Reference Range Interpretation Comments Monocytes # (Auto) (test code = 742-7) 0.4 0.2-0.8 [facility] CenterEosinophils # (Auto)2019-09-07 17:09:00* Test Item Value Reference Range Interpretation Comments Eosinophils # (Auto) (test code = 711-2) 0.3 0.0-0.4 [facility] CenterBasophils # (Auto)2019-09-07 17:09:00* Test Item Value Reference Range Interpretation Comments Basophils # (Auto) (test code = 704-7) 0.1 0.0-0.1 [facility] CenterAbsolute Immature Granulocyte (auto 2019-09-07 17:09:00* Test Item Value Reference Range Interpretation Comments Absolute Immature Granulocyte (auto (christian t code = Absolute Immature Granulocyte (auto) 0.01 0-0.1 [facility] CenterCHEST 2 [id number] 17:06:00 [place] [address] Patient Name: MARCO A ROBLES MR #: [id number] : 1970 Age/Sex: 49/M Req #: [id number] Adm Physician: Ordered by: MEHDI DANIELS COOKER SODA Report #: [id number] Location: ER Room/Bed: Procedure: 1030-006 1 DX/CHEST 2 VIEWS Exam Date: 09/07/19 Exam Time: 16 35 REPORT STATUS: Signed EXAMINA TION: CHEST 2 VIEWS INDICATION: Cough COMPARISON: Chest radiograp h of 06/23/2019 FINDINGS: LINES/TUBES:None LUNGS:The lungs ar e well-inflated. No focal consolidation or pulmonary edema. PLEURA:No pleur al effusion or pneumothorax. MEDIASTINUM:The cardiomediastinal silhouette a ppears normal in size and shape. BONES/SOFT TISSUES:No acute osseous injury . ABDOMEN:No free air under the diaphragm. IMPRESSION: No focal pneumonia or pulmonary edema. Signed by: Mine Mascorro MD on 09/07/2019 5:07 PM Dictated By: MINE MASCORRO MD 06 Transcribed By: ERUM on 09/07/191706 COPY TO: MEHDI DANIELS NP ALPHA FETOPROTEIN (AFP), TUMOR [id number] 12:52:00* Test Item Value Reference Range Interpretation Comments ALPHA-FETOPROTEIN (BEAKER) (test code = 1094) 3.4 ng/mL <10.0 COMPREHENSIVE METABOLIC [id number] 12:33:00* Test Item Value Reference Range Interpretation Comments TOTAL PROTEIN (BEAKER) (test code = 770) 8.0 gm/dL 6.0-8.3 ALBUMIN (BEAKER) (test code = 1145) 3.8 g/dL 3.5-5.0 ALKALINE PHOSPHATASE (BEAKER) (test code = 346) 289 U/L 40-150 H BILIRUBIN TOTAL (BEAKER) (test code = 377) 0.8 mg/dL 0.2-1.2 SODIUM (BEAKER) (test code = 381) 140 meq/L 136-145 POTASSIUM (BEAKER) (test code = 379) 4.6 meq/L 3.5-5.1 CHLORIDE (BEAKER) (test code = 382) 104 meq/L 98-107 CO2 (BEAKER) (test code = 355) 22 meq/L 22-29 BLOOD UREA NITROGEN (BEAKER) (test code = 354) 39 mg/dL 7-21 H CREATININE (BEAKER) (test code = 358) 10.05 mg/dL 0.57-1.25 H GLUCOSE RANDOM (BEAKER) (test code = 652) 116 mg/dL 70-105 H CALCIUM (BEAKER) (test code = 697) 8.6 mg/dL 8.4-10.2 AST (SGOT) (BEAKER) (test code = 353) 44 U/L 5-34 H ALT (SGPT) (BEAKER) (test code = 347) 36 U/L 6-55 EGFR (BEAKER) (test code = 1092) 6 mL/min/1.73 sq m ESTIMATED GFR IS NOT ACCURATE CREATININE CLEARANCE IN PREDICTING GLOMERULAR FILTRATION RATE. ESTIMATED GFR IS NOT APPLICABLE FOR DIALYSIS PATIENTS. BILIRUBIN, [id number] 12:29:00* Test Item Value Reference Range Interpretation Comments BILIRUBIN DIRECT (BEAKER) (test code = 706) 0.5 mg/dL 0.1-0.5 PROTHROMBIN TIME/[id number] 12:18:00* Test Item Value Reference Range Interpretation Comments PROTIME (BEAKER) (test code = 759) 14.9 seconds 11.9-14.2 H INR (BEAKER) (test code = 370) 1.2 <=5.9 Effective 04/06/2019: PT Reference Range ChangeNew: 11.9-14.2 Previous: 11.7-14. 7RECOMMENDED COUMADIN/WARFARIN INR THERAPY RANGESSTANDARD DOSE: 2.0-3.0 Include s: PROPHYLAXIS for venous thrombosis, systemic embolization; TREATMENT for venou s thrombosis and/or pulmonary embolus.HIGH RISK: Target INR is 2.5-3.5 for patie nts wiht mechanical heart valves.CBC W/PLT COUNT & AUTO [id number] 12:18:00* Test Item Value Reference Range Interpretation Comments WHITE BLOOD CELL COUNT (BEAKER) (test code = 775) 5.8 K/ L 3.5- 10.5 RED BLOOD CELL COUNT (BEAKER) (test code = 761) 3.30 M/ L 4.63-6 .08 L HEMOGLOBIN (BEAKER) (test code = 410) 10.6 GM/DL 13.7-17.5 L HEMATOCRIT (BEAKER) (test code = 411) 32.4 % 40.1-51.0 L MEAN CORPUSCULAR VOLUME (BEAKER) (test code = 753) 98.2 fL 79. 0-92.2 H MEAN CORPUSCULAR HEMOGLOBIN (BEAKER) (test code = 751) 32.1 pg 25.7-32.2 MEAN CORPUSCULAR HEMOGLOBIN CONC (BEAKER) (test code = 752) 32.7 GM/DL 32.3-36.5 RED CELL DISTRIBUTION WIDTH (BEAKER) (test code = 412) 13.2 % 11.6-14.4 PLATELET COUNT (BEAKER) (test code = 756) 115 K/CU MM 150-450 L MEAN PLATELET VOLUME (BEAKER) (test code = 754) 10.7 fL 9.4-12 .4 NUCLEATED RED BLOOD CELLS (BEAKER) (test code = 413) 0 /100 WBC 0 -0 NEUTROPHILS RELATIVE PERCENT (BEAKER) (test code = 429) 63 % LYMPHOCYTES RELATIVE PERCENT (BEAKER) (test code = 430) 21 % MONOCYTES RELATIVE PERCENT (BEAKER) (test code = 431) 8 % EOSINOPHILS RELATIVE PERCENT (BEAKER) (test code = 432) 6 % BASOPHILS RELATIVE PERCENT (BEAKER) (test code = 437) 1 % NEUTROPHILS ABSOLUTE COUNT (BEAKER) (test code = 670) 3.61 K/ L 1.78-5.38 LYMPHOCYTES ABSOLUTE COUNT (BEAKER) (test code = 414) 1.23 K/ L 1.32-3.57 L MONOCYTES ABSOLUTE COUNT (BEAKER) (test code = 415) 0.47 K/ L 0. 30-0.82 EOSINOPHILS ABSOLUTE COUNT (BEAKER) (test code = 416) 0.34 K/ L 0.04-0.54 BASOPHILS ABSOLUTE COUNT (BEAKER) (test code = 417) 0.04 K/ L 0. 01-0.08 IMMATURE GRANULOCYTES-RELATIVE PERCENT (BEAKER) (test code = 2801) 1 % 0-1 HEPATITIS B [id number] 05:08:00* Test Item Value Reference Range Interpretation Comments AB HEPATITIS B SURFACE (test code = HBSAB) Non Reactive () Non Reactive: Inconsistent with immunity, less than 10 mIU/mL Reactive: Consistent with immunity, greater than 9.9 mIU/mLPerformed At: [facility] [address] [id number] Rodríguez MD Ph:[phone] At: [facility] [id number] Sanjai MD P h:[phone] AG HEPAT B SURF (test code = HBSAG) Negative Negative HEPATITIS B CORE ANTIBODY,TOT (test code = HBCAB) Negative Nega tive HEPATITIS B CORE ANTIBODY,IGM (test code = HBCMAB) Negative Neg ative AG HEPATITIS BE (test code = HBEAG) Negative Negative AB HEPATITIS BE (test code = HBEAB) Negative Negative PROTHROMBIN [id number] 11:09:00* Test Item Value Reference Range Interpretation Comments PROTHROMBIN TIME PATIENT (test code = PTP) 13.2 seconds 9.0-14.0 N INTERNATIONAL NORMAL RATIO (test code = INR) 1.1 0.8-1.2 N The therapeutic range for oral anticoagulant therapy formost indications is an international normalized ratio (INR)of between 2.0 and 3.0. The recommended therapeutic INRrange for various clinical situations is listed below: Clinical Situation INR range Pulmonary e mbolism treatment (2.0-3.0)Venous thrombosis treatmentVenous thrombosis prophylaxis (high risk surgery)Prevention of systemic embolism from: Acute myocardial infarction Valvular heart disease Atrial fibrillation Mechanical prosthetic heart valves (2.5-3.5) THROMBOPLASTIN TIME [id number] 11:09:00* Test Item Value Reference Range Interpretation Comments THROMBOPLASTIN TIME PARTIAL (test code = PTT) 44.6 seconds 25.0-36. 5 H [id number] 11:09:00* Test Item Value Reference Range Interpretation Comments FIBRINOGEN (test code = FIB) 290 mg/dL 200-400 N FIBRIN SPLIT [id number] 11:09:00* Test Item Value Reference Range Interpretation Comments FIBRIN SPLIT PRODUCT (test code = FSP) 5 ug/mL <5 A Performed At: [facility] [id number] Sanjai MD Ph:[phone] [id number] 11:09:00* Test Item Value Reference Range Interpretation Comments D-DIMER (test code = DDIMER) ng/mLFEU 0-500 Results called to by [email or web address] 07/14/19 0710Critical results verified and read back by Nurse? ANTITHROMBIN III (ATIII)2019-07-18 11:09:00* Test Item Value Reference Range Interpretation Comments ANTITHROMBIN III (ATIII) (test code = AT3) 66 % 75-135 L Performed At: [facility] [id number] Robin MD Ph:[phone] PROTHROMBIN [id number] 23:06:00* Test Item Value Reference Range Interpretation Comments PROTHROMBIN TIME PATIENT (test code = PTP) 13.2 seconds 9.0-14.0 N INTERNATIONAL NORMAL RATIO (test code = INR) 1.1 0.8-1.2 N The therapeutic range for oral anticoagulant therapy formost indications is an international normalized ratio (INR)of between 2.0 and 3.0. The recommended therapeutic INRrange for various clinical situations is listed below: Clinical Situation INR range Pulmonary e mbolism treatment (2.0-3.0)Venous thrombosis treatmentVenous thrombosis prophylaxis (high risk surgery)Prevention of systemic embolism from: Acute myocardial infarction Valvular heart disease Atrial fibrillation Mechanical prosthetic heart valves (2.5-3.5) THROMBOPLASTIN TIME [id number] 23:06:00* Test Item Value Reference Range Interpretation Comments THROMBOPLASTIN TIME PARTIAL (test code = PTT) 44.6 seconds 25.0-36. 5 H [id number] 23:06:00* Test Item Value Reference Range Interpretation Comments FIBRINOGEN (test code = FIB) 290 mg/dL 200-400 N FIBRIN SPLIT [id number] 23:06:00* Test Item Value Reference Range Interpretation Comments FIBRIN SPLIT PRODUCT (test code = FSP) 5 ug/mL <5 A Performed At: [facility] [id number] Robin MD Ph:[phone] [id number] 23:06:00* Test Item Value Reference Range Interpretation Comments D-DIMER (test code = DDIMER) ng/mLFEU 0-500 Results called to by [email or web address] 07/14/19 0710Critical results verified and read back by Nurse? ANTITHROMBIN III (ATIII)2019-07-16 23:06:00* Test Item Value Reference Range Interpretation Comments ANTITHROMBIN III (ATIII) (test code = AT3) % 75-135 HEPATITIS B CORE ANTIBODY,[id number] 06:09:00* Test Item Value Reference Range Interpretation Comments HEPATITIS B CORE ANTIBODY,TOT (test code = HBCAB) Negative Nega tive Performed At: [facility] [address] [id number] Ananda Rodríguez MD Ph:[phone] BASIC METABOLIC [id number] 04:26:00* Test Item Value Reference Range Interpretation Comments SODIUM (test code = NA) 139 mmol/L 136-145 N POTASSIUM (test code = K) 4.4 mmol/L 3.5-5.1 N CHLORIDE (test code = CL) 98.0 mmol/L 98-107 N CARBON DIOXIDE (test code = CO2) 33.0 mmol/L 21-32 H ANION GAP (test code = GAP) 12.4 10-20 N GLUCOSE (test code = GLU) 173 mg/dL 74-106 H BLOOD UREA NITROGEN (test code = BUN) 30 mg/dL 7-18 H RESULT VERIFIED BY REPEAT ANALYSIS GLOMERULAR FILTRATION RATE (test code = GFR) 10 mL/min >=60 Estimated GFR by using Modified MDRD formula.Chronic kidney disease is defined as either kidney damageor GFR <60 mL/min/1.73 m2 for >3 months. CREATININE (test code = CREAT) 6.20 mg/dL 0.7-1.3 H BUN/CREATININE RATIO (test code = BUN/CREA) 4.8 10-20 L CALCIUM (test code = CA) 8.0 mg/dL 8.5-10.1 L [id number] 11:32:00* Test Item Value Reference Range Interpretation Comments GLUBED (test code = GLUBED) 156 mg/dL 74-106 H Performed by certified refiner operator at [facility] [id number] 08:55:00* Test Item Value Reference Range Interpretation Comments GLUBED (test code = GLUBED) 77 mg/dL 74-106 N Performed by certified refiner operator at [facility] PROTHROMBIN [id number] 07:10:00* Test Item Value Reference Range Interpretation Comments PROTHROMBIN TIME PATIENT (test code = PTP) 13.2 seconds 9.0-14.0 N INTERNATIONAL NORMAL RATIO (test code = INR) 1.1 0.8-1.2 N The therapeutic range for oral anticoagulant therapy formost indications is an international normalized ratio (INR)of between 2.0 and 3.0. The recommended therapeutic INRrange for various clinical situations is listed below: Clinical Situation INR range Pulmonary e mbolism treatment (2.0-3.0)Venous thrombosis treatmentVenous thrombosis prophylaxis (high risk surgery)Prevention of systemic embolism from: Acute myocardial infarction Valvular heart disease Atrial fibrillation Mechanical prosthetic heart valves (2.5-3.5) THROMBOPLASTIN TIME [id number] 07:10:00* Test Item Value Reference Range Interpretation Comments THROMBOPLASTIN TIME PARTIAL (test code = PTT) 44.6 seconds 25.0-36. 5 H [id number] 07:10:00* Test Item Value Reference Range Interpretation Comments FIBRINOGEN (test code = FIB) 290 mg/dL 200-400 N FIBRIN SPLIT [id number] 07:10:00* Test Item Value Reference Range Interpretation Comments FIBRIN SPLIT PRODUCT (test code = FSP) mcg/mL <5 [id number] 07:10:00* Test Item Value Reference Range Interpretation Comments D-DIMER (test code = DDIMER) ng/mLFEU 0-500 Results called to by AZRA 07/14/19 0710Critical results verified and read back by Nurse? ANTITHROMBIN III (ATIII)2019-07-14 07:10:00* Test Item Value Reference Range Interpretation Comments ANTITHROMBIN III (ATIII) (test code = AT3) % 75-135 BASIC METABOLIC [id number] 03:07:00* Test Item Value Reference Range Interpretation Comments SODIUM (test code = NA) 141 mmol/L 136-145 N POTASSIUM (test code = K) 4.9 mmol/L 3.5-5.1 N CHLORIDE (test code = CL) 106.0 mmol/L 98-107 N CARBON DIOXIDE (test code = CO2) 25.0 mmol/L 21-32 N ANION GAP (test code = GAP) 14.9 10-20 N GLUCOSE (test code = GLU) 89 mg/dL 74-106 N BLOOD UREA NITROGEN (test code = BUN) 39 mg/dL 7-18 H RESULT VERIFIED BY REPEAT ANALYSIS GLOMERULAR FILTRATION RATE (test code = GFR) 8 mL/min >=60 Estimated GFR by using Modified MDRD formula.Chronic kidney disease is defined as either kidney damageor GFR <60 mL/min/1.73 m2 for >3 months. CREATININE (test code = CREAT) 7.60 mg/dL 0.7-1.3 H BUN/CREATININE RATIO (test code = BUN/CREA) 5.1 10-20 L CALCIUM (test code = CA) 8.3 mg/dL 8.5-10.1 L LIPID PROFILE (CORONARY RISK)2019-07-14 03:07:00* Test Item Value Reference Range Interpretation Comments TRIGLYCERIDES (test code = TRIG) 112 mg/dL 20-150 N CHOLESTEROL (test code = CHOL) 108 mg/dL 0-200 N CHOLESTEROL/HDL RATIO (test code = CHOLHDL) 2.0 RATIO 0-4.9 N RISK ASSOCIATED WITH CHOL/HDL RATIOS: Risk Male Female1/2 AVERAGE 3.43 3.27AVERAGE 4.97 4.442X AVERAGE 9.55 7.053X AVERAGE 23.39 11.04 REFERENCE VALUE IS RELATED TO RISK LEVELS ASRECOMMENDED BY THE SVETA. HEART, LUNG, AND BLOOD INST. HDL CHOLESTEROL (test code = HDL) 38 mg/dL 40-60 L LIPOPROTEIN LDL (test code = LDL) 56 mg/dL 100-129 L Reference Interval: mg/dL mmol/L Optimal <100 <2.6Near/above optimal 100-129 2.6- 3.3Borderline High 130-159 3.4-4.1High 160-189 4.1-4.9Very High >=190 >=4.9========= This LDL result is a direct measurement.========= CBC W/AUTO [id number] 02:45:00* Test Item Value Reference Range Interpretation Comments WHITE BLOOD CELL (test code = WBC) 4.6 K/mm3 4.5-12.5 N RED BLOOD CELL (test code = RBC) 2.86 mill/mm3 4.0-5.8 L HEMOGLOBIN (test code = HGB) 9.4 gram/dL 13.0-17.5 L HEMATOCRIT (test code = HCT) 28.0 % 42.0-52.0 L MEAN CELL VOLUME (test code = MCV) 97.9 fL 80-98 N MEAN CELL HGB (test code = MCH) 32.9 picogram 27.0-33.0 N MEAN CELL HGB CONCETRATION (test code = MCHC) 33.6 gram/dL 33.0-36. 0 N RED CELL DISTRIBUTION WIDTH (test code = RDW) 12.2 % 11.6-16. 2 N RED CELL DISTRIBUTION WIDTH SD (test code = RDW-SD) 43.8 fL 37 .0-51.0 N PLATELET COUNT (test code = PLT) 77 K/mm3 150-450 L MEAN PLATELET VOLUME (test code = MPV) 10.7 fL 6.7-11.0 N NEUTROPHIL % (test code = NT%) 63.3 % 39.0-69.0 N IMMATURE GRANULOCYTE % (test code = IG%) 0.4 % 0.0-5.0 N LYMPHOCYTE % (test code = LY%) 21.4 % 25.0-55.0 L MONOCYTE % (test code = MO%) 7.8 % 0.0-10.0 N EOSINOPHIL % (test code = EO%) 6.5 % 0.0-5.0 H BASOPHIL % (test code = BA%) 0.6 % 0.0-1.0 N NUCLEATED RBC % (test code = NRBC%) 0.0 % 0-0 N NEUTROPHIL # (test code = NT#) 2.93 K/mm3 1.8-7.7 N IMMATURE GRANULOCYTE # (test code = IG#) 0.02 x10 3/uL 0-0.03 N LYMPHOCYTE # (test code = LY#) 0.99 K/mm3 1.0-5.0 L MONOCYTE # (test code = MO#) 0.36 K/mm3 0-0.8 N EOSINOPHIL # (test code = EO#) 0.30 K/mm3 0.0-0.5 N BASOPHIL # (test code = BA#) 0.03 K/mm3 0.0-0.2 N NUCLEATED RBC # (test code = NRBC#) 0.00 K/mm3 0.0-0.1 N MANUAL DIFF REQUIRED (test code = MDIFF) NO BASIC METABOLIC [id number] 02:38:00* Test Item Value Reference Range Interpretation Comments SODIUM (test code = NA) 141 mmol/L 136-145 N POTASSIUM (test code = K) 4.9 mmol/L 3.5-5.1 N CHLORIDE (test code = CL) 106.0 mmol/L 98-107 N CARBON DIOXIDE (test code = CO2) mmol/L 21-32 ANION GAP (test code = GAP) 10-20 GLUCOSE (test code = GLU) mg/dL 74-106 BLOOD UREA NITROGEN (test code = BUN) mg/dL 7-18 GLOMERULAR FILTRATION RATE (test code = GFR) mL/min >=60 CREATININE (test code = CREAT) mg/dL 0.7-1.3 BUN/CREATININE RATIO (test code = BUN/CREA) 10-20 CALCIUM (test code = CA) mg/dL 8.5-10.1 LIPID PROFILE (CORONARY RISK)2019-07-14 02:38:00* Test Item Value Reference Range Interpretation Comments TRIGLYCERIDES (test code = TRIG) mg/dL 20-150 CHOLESTEROL (test code = CHOL) mg/dL 0-200 CHOLESTEROL/HDL RATIO (test code = CHOLHDL) RATIO 0-4.9 HDL CHOLESTEROL (test code = HDL) mg/dL 40-60 LIPOPROTEIN LDL (test code = LDL) mg/dL 100-129 AMGDCDIN-[id number] 00:10:00* Test Item Value Reference Range Interpretation Comments TROPONIN-I (test code = TROPI) < 0.015 ng/mL 0-0.045 N COMMENTS TO AUTOMOTIVE QUALITY ENGINEER: COLLECT 3 HOURS AFTER PREVIOUS SAMPLEAG HEPAT B [id number] 22:09:00* Test Item Value Reference Range Interpretation Comments AG HEPAT B SURF (test code = HBSAG) Nonreactive Index Nonreactive MEXCJH6929-50-31 21:04:00* Test Item Value Reference Range Interpretation Comments GLUBED (test code = GLUBED) 109 mg/dL 74-106 H Performed by certified refiner operator at [facility] QLRWMWSN-[id number] 20:29:00* Test Item Value Reference Range Interpretation Comments TROPONIN-I (test code = TROPI) <0.015 ng/mL 0-0.045 N COMMENTS TO AUTOMOTIVE QUALITY ENGINEER: COLLECT 3 HOURS AFTER PREVIOUS TINSNLLSYJBNJBT7392-88-89 20:10:00* Test Item Value Reference Range Interpretation Comments MAGNESIUM (test code = MAG) 2.4 mg/dL 1.8-2.4 N THYROID STIMULATING [id number] 20:10:00* Test Item Value Reference Range Interpretation Comments THYROID STIMULATING HORMONE (test code = TSH) 3.890 uIU/mL 0.36-3.7 4 H TSH REFERENCE RANGES: EUTHYROID: 0.35 - 4.3 mIU/mL HYPO : > 5.5 mIU/mL HYPER : < 0.35 mIU/mL [id number] 19:56:00* Test Item Value Reference Range Interpretation Comments MAGNESIUM (test code = MAG) 2.4 mg/dL 1.8-2.4 N THYROID STIMULATING [id number] 19:56:00* Test Item Value Reference Range Interpretation Comments THYROID STIMULATING HORMONE (test code = TSH) uIU/mL 0.36-3.7 4 [id number] 17:27:00* Test Item Value Reference Range Interpretation Comments GLUBED (test code = GLUBED) 85 mg/dL 74-106 N Performed by certified refiner operator at [facility] CBC W/O [id number] 12:39:00* Test Item Value Reference Range Interpretation Comments WHITE BLOOD CELL (test code = WBC) 4.4 K/mm3 4.5-12.5 L RED BLOOD CELL (test code = RBC) 3.05 mill/mm3 4.0-5.8 L HEMOGLOBIN (test code = HGB) 10.0 gram/dL 13.0-17.5 L HEMATOCRIT (test code = HCT) 29.5 % 42.0-52.0 L MEAN CELL VOLUME (test code = MCV) 96.7 fL 80-98 N MEAN CELL HGB (test code = MCH) 32.8 picogram 27.0-33.0 N MEAN CELL HGB CONCETRATION (test code = MCHC) 33.9 gram/dL 33.0-36. 0 N RED CELL DISTRIBUTION WIDTH (test code = RDW) 12.3 % 11.6-16. 2 N PLATELET COUNT (test code = PLT) 83 K/mm3 150-450 L MEAN PLATELET VOLUME (test code = MPV) 10.8 fL 6.7-11.0 N BASIC METABOLIC [id number] 12:16:00* Test Item Value Reference Range Interpretation Comments SODIUM (test code = NA) 140 mmol/L 136-145 N POTASSIUM (test code = K) 4.0 mmol/L 3.5-5.1 N CHLORIDE (test code = CL) 104.0 mmol/L 98-107 N CARBON DIOXIDE (test code = CO2) 29.0 mmol/L 21-32 N ANION GAP (test code = GAP) 11.0 10-20 N GLUCOSE (test code = GLU) 85 mg/dL 74-106 N BLOOD UREA NITROGEN (test code = BUN) 29 mg/dL 7-18 H GLOMERULAR FILTRATION RATE (test code = GFR) 11 mL/min >=60 Estimated GFR by using Modified MDRD formula.Chronic kidney disease is defined as either kidney damageor GFR <60 mL/min/1.73 m2 for >3 months. CREATININE (test code = CREAT) 5.70 mg/dL 0.7-1.3 H BUN/CREATININE RATIO (test code = BUN/CREA) 5.1 10-20 L CALCIUM (test code = CA) 8.9 mg/dL 8.5-10.1 N [id number]-[id number] 12:16:00* Test Item Value Reference Range Interpretation Comments TROPONIN-I (test code = TROPI) <0.015 ng/mL 0-0.045 N BASIC METABOLIC [id number] 12:06:00* Test Item Value Reference Range Interpretation Comments SODIUM (test code = NA) 140 mmol/L 136-145 N POTASSIUM (test code = K) 4.0 mmol/L 3.5-5.1 N CHLORIDE (test code = CL) 104.0 mmol/L 98-107 N CARBON DIOXIDE (test code = CO2) mmol/L 21-32 ANION GAP (test code = GAP) 10-20 GLUCOSE (test code = GLU) mg/dL 74-106 BLOOD UREA NITROGEN (test code = BUN) mg/dL 7-18 GLOMERULAR FILTRATION RATE (test code = GFR) mL/min >=60 CREATININE (test code = CREAT) mg/dL 0.7-1.3 BUN/CREATININE RATIO (test code = BUN/CREA) 10-20 CALCIUM (test code = CA) mg/dL 8.5-10.1 [id number]-[id number] 12:06:00* Test Item Value Reference Range Interpretation Comments TROPONIN-I (test code = TROPI) ng/mL 0-0.045 - XR CHEST 1 [id number] 11:55:00 FAX: Brandon Castillo MD [phone] [place]: B St: [facility] FAX: Danielle Summers DO Name: MARCO A ROBLES [facility] : 1970 Age/S: 48/M [address] Unit #: [id number] Loc: KEM[place] [address] Phys: Danielle Summers DO Acct: [id number] Dis Date: Status: REG ER PHONE #: [phone] Exam Date: 07/13/2019 1112 FAX #: [phone] Reason: CHEST PAIN EXAMS: CPT CODE: [id number] XR CHEST 1 V 70670 REASON FOR EXAM: CHEST PAIN Exam Order Date: 07/13/2019 10:33 AM Ordering M.D.: Danielle Summers DO PROCEDURE: - XR CHEST 1 V COMPARISON: Frontal chest x-ray October 08, 2016 FINDINGS: The lungs are clear. There is no pleural effusion or pneumothorax. Pulmonary vascularity is within normal limits. Cardiomediastinal silhouette is normal in size for technique. The mediastinal contours are within normal limits. No acute musculoskeletal abnormality. The visualized upper abdomen is w ithin normal limits. IMPRESSION: No acute cardio pulmonary process. Electronically Signed by Davi Swartz MD on 2018 at 4236 Reported and signed by: Davi Swartz MD CC: Brandon Turcios MD; Danielle Summers DO Technologist: Kiesha Garcia(Elizabeth) Trnscrd Date/Time/By: 07/13/2019 (0537) : By: [email or web address] Orig Print D/T: S: 07/13/2019 (4895) PAGE 1 Signed Report - XR CHEST 1 [id number] 11:55:00 FAX: Brandon Castillo MD [phone] [place]: B St: DIS FAX: Danielle Summers DO Name: MARCO A ROBLES [facility] : 1970 Age/S: 48/M [address] Unit #: [id number] Loc: [place] [address] Phys: Danielle Summers DO Acct: [id number] Dis Date: Status: DIS IN PHONE #: [phone] Exam Date: 07/13/2019 1112 FAX #: [phone] Reason: CHEST PAIN EXAMS: CPT CODE: [id number] XR CHEST 1 V 66792 REASON FOR EXAM: CHEST PAIN Exam Order Date: 07/13/2019 10:33 AM Ordering M.D.: Danielle Summers DO PROCEDURE: - XR CHEST 1 V COMPARISON: Frontal chest x-ray Nov 2015 FINDINGS: The lungs are clear. There is no pleural effusion or pneumothorax. Pulmonary vascularity is within normal limits. Cardiomediastinal silhouette is normal in size for techniq ue. The mediastinal contours are within normal limits. No ac robinson musculoskeletal abnormality. The visualized upper abdomen is w ithin normal limits. IMPRESSION: No acute cardio pulmonary process. Electronically Signed by Davi Swartz MD on 2018 at 1155 Reported and signed by: Davi Swartz MD CC: Brandon Turcios MD; Danielle Summers DO Technologist: Kiesha Garcia(Elizabeth) Trnscrd Date/Time/By: 07/13/2019 (4338) : By: [email or web address] Orig Print D/T: S: 07/13/2019 (3085) PAGE 1 Signed Report - XR CHEST 1 [id number] 11:55:00 FAX: Brandon Castillo MD [phone] [place]: B St: DIS FAX: Danielle Summers DO Name: MARCO A ROBLES [facility] : 1970 Age/S: 48/M [address] Unit #: [id number] Loc: [place] [address] Phys: Danielle Summers DO Acct: [id number] Dis Date: Status: DIS IN PHONE #: [phone] Exam Date: 07/13/2019 1112 FAX #: [phone] Reason: CHEST PAIN EXAMS: CPT CODE: [id number] XR CHEST 1 V 48932 REASON FOR EXAM: CHEST PAIN Exam Order Date: 07/13/2019 10:33 AM Ordering M.D.: Danielle Summers DO PROCEDURE: - XR CHEST 1 V COMPARISON: Frontal chest x-ray Nov 2015 FINDINGS: The lungs are clear. There is no pleural effusion or pneumothorax. Pulmonary vascularity is within normal limits. Cardiomediastinal silhouette is normal in size for techniq ue. The mediastinal contours are within normal limits. No ac robinson musculoskeletal abnormality. The visualized upper abdomen is w ithin normal limits. IMPRESSION: No acute cardio pulmonary process. Electronically Signed by Davi Swartz MD on 2018 at 1155 Reported and signed by: Davi Swartz MD CC: Brandon Turcios MD; Danielle Summers DO Technologist: Kiesha Garcia(R) Trnscrd Date/Time/By: 07/13/2019 (1150) : By: [email or web address] [facility] Print D/T: S: 07/13/2019 (2372) PAGE 1 Signed Report Blood Zlgjcxc2942-48-44 15:45:00* Test Item Value Reference Range Interpretation Comments Blood Culture (test code = 70516468) NO GROWTH AFTER 5 DAYS, FINAL REPORT [facility]Blood Hbgijha9092-39-15 15:45:00* Test Item Value Reference Range Interpretation Comments Blood Culture (test code = 53526706) NO GROWTH AFTER 5 DAYS, FINAL REPORT [facility] CenterHepatitis Be Azeabhmq4640-84-23 05:13:00 * Test Item Value Reference Range Interpretation Comments Hepatitis Be Antibody (test code = 83905-7) Negative Negative Performed at: [address] [id number] Part Time Receptionist: Sharda Hawley MD, Phone: [phone] [facility] Medical CenterHepatitis Be Ddliwcrp0497-50-03 05:13:00* Test Item Value Reference Range Interpretation Comments Hepatitis Be Antibody (test code = 25915-5) Negative Negative Performed at: [address] [id number] Part Time Receptionist: Sharda Hawley MD, Phone: [phone] [facility] Center of [facility] [place] Jqudbdi8701-14-73 21:00:00* Test Item Value Reference Range Interpretation Comments Bedside Glucose (test code = 59677-4) 181 70-120 H Meter ID: [id number] [facility] of [facility] [place] Glucose 2019-06-27 21:00:00* Test Item Value Reference Range Interpretation Comments Bedside Glucose (test code = 72097-0) 181 70-120 H Meter ID: [id number] Medical Center of [facility] [place] Glucose 2019-06-27 21:00:00* Test Item Value Reference Range Interpretation Comments Bedside Glucose (test code = 60583-3) 181 70-120 H Meter ID: [id number] [place] Medical CenterMagnesium Level 2019-06-27 11:19:00* Test Item Value Reference Range Interpretation Comments Magnesium Level (test code = 84290-6) 2.3 1.3-2.1 [facility] Qcddg5801-92-88 05:46:00* Test Item Value Reference Range Interpretation Comments Sodium Level (test code = 2951-2) 132 136-145 L [facility] CenterPotassium Kfvax2988-56-39 05:46:00* Test Item Value Reference Range Interpretation Comments Potassium Level (test code = 2823-3) 4.8 3.5-5.1 [facility] CenterChloride Rfius8553-68-45 05:46:00* Test Item Value Reference Range Interpretation Comments Chloride Level (test code = 2075-0) 95 98-107 L [facility] CenterCarbon Dioxide Dglhj3315-66-63 05:46:00* Test Item Value Reference Range Interpretation Comments Carbon Dioxide Level (test code = 2028-9) 23 22-29 [facility] CenterAnion Lkt9129-66-19 05:46:00* Test Item Value Reference Range Interpretation Comments Anion Gap (test code = 60278-5) 18.8 8-16 H [facility] CenterBlood Urea Pfadnxnc0828-14-48 05:46:00* Test Item Value Reference Range Interpretation Comments Blood Urea Nitrogen (test code = 3094-0) 57 7-26 H [facility] CenterCreatinine2019-08-19 05:46:00* Test Item Value Reference Range Interpretation Comments Creatinine (test code = 2160-0) 12.07 0.72-1.25 H [facility] CenterBUN/Creatinine Uufrj8593-87-95 05:46:00* Test Item Value Reference Range Interpretation Comments BUN/Creatinine Ratio (test code = 3097-3) 5 6-25 L [facility] CenterEstimat Glomerular Filtration Rate 2019-06-27 05:46:00* Test Item Value Reference Range Interpretation Comments Estimat Glomerular Filtration Rate (test code = 131957632) 4 >60 L Ranges were taken from the National Kidney Disease Education Program and the [facility] [employer] literature.Reference ranges:60 or greater: Onodwd48-30 ( for 3 consecutive months): Chronic kidney disease 15 or less: Kidney failureNorth Texas Medical CenterGlucose Cuykr6787-63-50 05:46:00* Test Item Value Reference Range Interpretation Comments Glucose Level (test code = QBN8539) 102 74-118 [facility] CenterCalcium Nenzb7072-92-66 05:46:00* Test Item Value Reference Range Interpretation Comments Calcium Level (test code = 25879-5) 7.9 8.4-10.2 L [facility] CenterPhosphorus Yfbsu7232-70-49 05:46:00* Test Item Value Reference Range Interpretation Comments Phosphorus Level (test code = YDU5704) 6.7 2.3-4.7 H [facility] CenterPhosphorus Mdsmg9283-36-47 05:46:00* Test Item Value Reference Range Interpretation Comments Phosphorus Level (test code = QPG8282) 6.7 2.3-4.7 H [facility] CenterPhosphorus Qbvlb4676-78-10 05:46:00* Test Item Value Reference Range Interpretation Comments Phosphorus Level (test code = KTO6221) 6.7 2.3-4.7 H [facility] CenterWhite Blood Dvizp9230-76-28 05:45:00* Test Item Value Reference Range Interpretation Comments White Blood Count (test code = 6690-2) 5.66 4.8-10.8 [facility] CenterRed Blood Jzxeo8897-01-29 05:45:00* Test Item Value Reference Range Interpretation Comments Red Blood Count (test code = 789-8) 3.16 4.3-5.7 L [facility] CenterHemoglobin2019-08-19 05:45:00* Test Item Value Reference Range Interpretation Comments Hemoglobin (test code = 54325-8) 10.5 14.0-18.0 L [facility] CenterHematocrit2019-08-19 05:45:00* Test Item Value Reference Range Interpretation Comments Hematocrit (test code = 4544-3) 30.0 38.2-49.6 L [facility] CenterMean Corpuscular Vllugn4403-42-41 05:45:00* Test Item Value Reference Range Interpretation Comments Mean Corpuscular Volume (test code = 787-2) 94.9 81-99 [facility] CenterMean Corpuscular Fmrxsnndmd0260-85-66 05:45:00* Test Item Value Reference Range Interpretation Comments Mean Corpuscular Hemoglobin (test code = 785-6) 33.2 28-32 H [facility] CenterMean Corpuscular Hemoglobin Concent 2019-06-27 05:45:00* Test Item Value Reference Range Interpretation Comments Mean Corpuscular Hemoglobin Concent (test code = 786-4) 35.0 31-35 [facility] CenterRed Cell Distribution Lqfvc0341-24-13 05:45:00* Test Item Value Reference Range Interpretation Comments Red Cell Distribution Width (test code = 65102-1) 12.7 11.7 -14.4 [facility] CenterPlatelet Pyeak6380-41-37 05:45:00* Test Item Value Reference Range Interpretation Comments Platelet Count (test code = 777-3) 110 140-360 L [facility] CenterNeutrophils (%) (Auto)2019-06-27 05:45:00 * Test Item Value Reference Range Interpretation Comments Neutrophils (%) (Auto) (test code = 62665-3) 63.2 38.7-80.0 [facility] CenterLymphocytes (%) (Auto)2019-06-27 05:45:00 * Test Item Value Reference Range Interpretation Comments Lymphocytes (%) (Auto) (test code = 736-9) 23.0 18.0-39.1 [facility] [place] [facility] CenterMonocytes (%) (Auto)2019-06-27 05:45:00* Test Item Value Reference Range Interpretation Comments Monocytes (%) (Auto) (test code = 5905-5) 6.5 4.4-11.3 [facility] [place] [facility] CenterEosinophils (%) (Auto)2019-06-27 05:45:00 * Test Item Value Reference Range Interpretation Comments Eosinophils (%) (Auto) (test code = 713-8) 5.5 0.0-6.0 [facility] CenterBasophils (%) (Auto)2019-06-27 05:45:00* Test Item Value Reference Range Interpretation Comments Basophils (%) (Auto) (test code = 706-2) 0.9 0.0-1.0 [facility] CenterIM GRANULOCYTES %2019-06-27 05:45:00* Test Item Value Reference Range Interpretation Comments IM GRANULOCYTES % (test code = IM GRANULOCYTES %) 0.9 0.0- 1.0 [facility] CenterNeutrophils # (Auto)2019-06-27 05:45:00* Test Item Value Reference Range Interpretation Comments Neutrophils # (Auto) (test code = 751-8) 3.6 2.1-6.9 [facility] CenterLymphocytes # (Auto)2019-06-27 05:45:00* Test Item Value Reference Range Interpretation Comments Lymphocytes # (Auto) (test code = 78636-9) 1.3 1.0-3.2 [facility] CenterMonocytes # (Auto)2019-06-27 05:45:00* Test Item Value Reference Range Interpretation Comments Monocytes # (Auto) (test code = 742-7) 0.4 0.2-0.8 [facility] [place] [facility] CenterEosinophils # (Auto)2019-06-27 05:45:00* Test Item Value Reference Range Interpretation Comments Eosinophils # (Auto) (test code = 711-2) 0.3 0.0-0.4 [facility] CenterBasophils # (Auto)2019-06-27 05:45:00* Test Item Value Reference Range Interpretation Comments Basophils # (Auto) (test code = 704-7) 0.1 0.0-0.1 [facility] CenterAbsolute Immature Granulocyte (auto 2019-06-27 05:45:00* Test Item Value Reference Range Interpretation Comments Absolute Immature Granulocyte (auto (christian t code = Absolute Immature Granulocyte (auto) 0.05 0-0.1 [facility] CenterHedoctors [facility] B Surface Antibody, Quant 2019-06-26 23:25:00* Test Item Value Reference Range Interpretation Comments Hepatitis B Surface Antibody, Quant (test code = 5194-6) 5.4 Immunity>9.9 L Status of Immunity Anti-HBs Level Inconsistent with Immunity 0.0 - 9.9Consistent with Immunity >9.9[facility]Hedo[facility] Be Trskkyp1367-98-70 23:25:00* Test Item Value Reference Range Interpretation Comments Hepatitis Be Antigen (test code = 92044-2) Negative Negative [facility] B Core Total Ukszynfw8071-39-09 23:25:00* Test Item Value Reference Range Interpretation Comments Hepatitis B Core Total Antibody (test code = 14663-5) Negative Negative Performed at: [address] [id number] Director: Ananda Ibarra MD, Phone: [phone]. [facility]'s [facility] B Surface Qwixsfl0293-19-74 23:25:00* Test Item Value Reference Range Interpretation Comments Hepatitis B Surface Antigen (test code = 5196-1) Negative Negat kasi [facility] B Surface Antibody, Quant 2019-06-26 23:25:00* Test Item Value Reference Range Interpretation Comments Hepatitis B Surface Antibody, Quant (test code = 5194-6) 5.4 Immunity>9.9 L Status of Immunity Anti-HBs Level Inconsistent with Immunity 0.0 - 9.9Consistent with Immunity >9.9CR[facility] Be Qmhioit6969-29-00 23:25:00* Test Item Value Reference Range Interpretation Comments Hepatitis Be Antigen (test code = 12811-5) Negative Negative [facility] B Core Total Cfpogejb0298-57-44 23:25:00* Test Item Value Reference Range Interpretation Comments Hepatitis B Core Total Antibody (test code = 37514-9) Negative Negative Performed at: [address] [id number] Director: Ananda Ibarra MD, Phone: [phone]. [facility]'s [facility] B Surface Jpongnm7580-70-54 23:25:00* Test Item Value Reference Range Interpretation Comments Hepatitis B Surface Antigen (test code = 5196-1) Negative Negat kasi [facility] B Surface Antibody, Quant 2019-06-26 23:25:00* Test Item Value Reference Range Interpretation Comments Hepatitis B Surface Antibody, Quant (test code = 5194-6) 5.4 Immunity>9.9 L Status of Immunity Anti-HBs Level Inconsistent with Immunity 0.0 - 9.9Consistent with Immunity >9.9[facility] Be Lumlwod4827-82-06 23:25:00* Test Item Value Reference Range Interpretation Comments Hepatitis Be Antigen (test code = 62048-9) Negative Negative [facility] B Core Total Smcglvxn8155-91-08 23:25:00* Test Item Value Reference Range Interpretation Comments Hepatitis B Core Total Antibody (test code = 28828-3) Negative Negative Performed at: - Lab[address] [id number] Director: Ananda Ibarra MD, Phone: [phone]. [facility] B Surface Etwwwco9900-31-17 23:25:00* Test Item Value Reference Range Interpretation Comments Hepatitis B Surface Antigen (test code = 5196-1) Negative Negat kasi [facility] CenterBlood Fdtynif0798-12-87 15:45:00* Test Item Value Reference Range Interpretation Comments Blood Culture (test code = 82458938) NO GROWTH AFTER 72 HOURS [facility] Nchragj1647-38-01 08:22:00* Test Item Value Reference Range Interpretation Comments Wound Culture (test code = 6462-6) Organism: STAPHYLOCOCCUS AUREUS [facility] Qryrnyc0604-48-76 08:22:00* Test Item Value Reference Range Interpretation Comments Wound Culture (test code = 6462-6) No Result Data Provided [facility] Yskxzzh0299-57-82 08:22:00* Test Item Value Reference Range Interpretation Comments Wound Culture (test code = 6462-6) No Result Data Provided [facility] CenterMRI FOOT LEFT IJ2942-34-29 15:55:00 [place] [address] Patient Name: MARCO A ROBLES MR #: [id number] : 1970 Age/Sex: 48/M Req #: [id number] Adm Physician: LIBRA ODONNELL MD Ordered by: LIBRA ODONNELL MD Report #: [id number] Location: MED/SURG2 Room/Bed: [facility] Procedure: 0816-000 4 MRI/MRI FOOT LEFT WO Exam Date: Exam Time: REPORT STATUS: Signed MRI of the l eft forefoot without contrast. History: Foot pain. Osteomyelitis. Blister. Ulcer on side of great toe. Technique: Multiplanar multisequence MRI of the foot without contrast Comparison: Radiographs 06/23/2019 Findings: Abnormal soft tissue edema and skin blistering adjacent to the first metatar sophalangeal joint medially with apparent skin ulceration. No well-formed drai nable fluid collection/abscess is seen. No underlying cortical destruction or focal bone marrow edema is seen to suggest osteomyelitis. Diffuse muscle at rophy. No acute fracture, subluxation or avascular necrosis. Scattered dege nerative change most pronounced at the proximal first metatarsal/cuneiform art iculation. 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 Chronic appearing de formity of the third metatarsophalangeal joint with apparent prior resection o f the distal third metatarsal. Prior resection of the second toe at the lev el of the distal metatarsal with associated postsurgical change. No ligam entous or tendon tear is seen. The visualized neurovascular bundles are int act. Impression: Abnormal soft tissue edema and skin blistering adjacent to the first metatarsophalangeal joint medially with apparent skin ulceration. No well-formed drainable fluid collection/abscess is seen. Findings are most likely due to cellulitis. No underlying cortical destruction or focal bone m arrow edema is seen to suggest osteomyelitis. Signed by: Dr. Gurinder Skinner M.D. on 06/24/2019 4:00 PM Dictated By: GURINDER SKINNER MD, MD [facility] Signed By: GURINDER SKINNER MD, MD on 06/24/19 1600 Transcribed By: ERUM on 08/16/19 1600 COPY TO: LIBRA ODONNELL MD Hemoglobin A1c Percent 2019-06-24 10:24:00* Test Item Value Reference Range Interpretation Comments Hemoglobin A1c Percent (test code = Hemoglobin A1c Percent) 5.7 4.0-7.0 [facility] CenterHemoglobin A1c Zdpgsyr7655-92-53 10:24:00 * Test Item Value Reference Range Interpretation Comments Hemoglobin A1c Percent (test code = Hemoglobin A1c Percent) 5.7 4.0-7.0 [facility] CenterHemoglobin A1c Hidrhyh6259-99-65 10:24:00 * Test Item Value Reference Range Interpretation Comments Hemoglobin A1c Percent (test code = Hemoglobin A1c Percent) 5.7 4.0-7.0 [facility] CenterPlatelet Oekrpxzc0976-97-91 16:49:00* Test Item Value Reference Range Interpretation Comments Platelet Estimate (test code = 64739-9) SLIGHTLY INCREASED [facility] CenterPlatelet Morphology Wydkgmr6395-29-52 16:49:00* Test Item Value Reference Range Interpretation Comments Platelet Morphology Comment (test code = 27276-1) NORMAL NO CLUMPING ON SLIDENorth [facility] Medical CenterRed Cell Morphology Vscllnb2457-23-37 16:49:00* Test Item Value Reference Range Interpretation Comments Red Cell Morphology Comment (test code = 6742-1) NORMAL [facility] CenterPlatelet Xauqqdrq6718-07-71 16:49:00* Test Item Value Reference Range Interpretation Comments Platelet Estimate (test code = 06341-5) SLIGHTLY INCREASED [facility] CenterPlatelet Morphology Judnrzb8796-22-57 16:49:00* Test Item Value Reference Range Interpretation Comments Platelet Morphology Comment (test code = 07592-1) NORMAL NO CLUMPING ON SLIDENorth [facility] CenterRed Cell Morphology Ijymfut0049-09-12 16:49:00* Test Item Value Reference Range Interpretation Comments Red Cell Morphology Comment (test code = 6742-1) NORMAL [facility] CenterPlatelet Gdxxmfdv1829-55-60 16:49:00* Test Item Value Reference Range Interpretation Comments Platelet Estimate (test code = 82142-2) SLIGHTLY INCREASED [facility] CenterPlatelet Morphology Hqxonlt3006-37-55 16:49:00* Test Item Value Reference Range Interpretation Comments Platelet Morphology Comment (test code = 73448-6) NORMAL NO CLUMPING ON SLIDENorth [facility] CenterRed Cell Morphology Jsnllto0456-03-68 16:49:00* Test Item Value Reference Range Interpretation Comments Red Cell Morphology Comment (test code = 6742-1) NORMAL [facility] CenterB-Type Natriuretic Qatavpl1079-29-94 16:16:00* Test Item Value Reference Range Interpretation Comments B-Type Natriuretic Peptide (test code = 82680-4) 449.1 0-100 H [facility] CenterCreatine Kinase [id number] 16:11:00* Test Item Value Reference Range Interpretation Comments Creatine Kinase MB (test code = 52276-0) 2.20 0-5.0 [facility] CenterTroponin [id number] 16:11:00* Test Item Value Reference Range Interpretation Comments Troponin I (test code = KJM3308) 0.012 0-0.300 [facility] CenterTotal Jymejdhvb4150-45-00 16:07:00* Test Item Value Reference Range Interpretation Comments Total Bilirubin (test code = 1975-2) 0.8 0.2-1.2 [facility] CenterAspartate Amino Transf (AST/SGOT) 2019-06-23 16:07:00* Test Item Value Reference Range Interpretation Comments Aspartate Amino Transf (AST/SGOT) (test code = Aspartate Amino Transf (AST/SGOT)) 24 5-34 [facility] CenterAlanine Aminotransferase (ALT/SGPT) 2019-06-23 16:07:00* Test Item Value Reference Range Interpretation Comments Alanine Aminotransferase (ALT/SGPT) (test code = 1742-6) 16 0-55 [facility] CenterTotal Lftfgrm3935-09-92 16:07:00* Test Item Value Reference Range Interpretation Comments Total Protein (test code = 2885-2) 7.4 6.5-8.1 [facility] CenterAlbumin2019-08-15 16:07:00* Test Item Value Reference Range Interpretation Comments Albumin (test code = 1751-7) 3.5 3.5-5.0 [facility] CenterGlobulin2019-08-15 16:07:00* Test Item Value Reference Range Interpretation Comments Globulin (test code = 87433-4) 3.9 2.3-3.5 H [facility] CenterAlbumin/Globulin Kcxeh3320-95-95 16:07:00 * Test Item Value Reference Range Interpretation Comments Albumin/Globulin Ratio (test code = 1759-0) 0.9 0.8-2.0 [facility] CenterAlkaline Eqaeggxyhel0436-85-67 16:07:00* Test Item Value Reference Range Interpretation Comments Alkaline Phosphatase (test code = 6768-6) 260 40-150 H [facility] CenterCreatine Kvhrlo1312-52-06 16:07:00* Test Item Value Reference Range Interpretation Comments Creatine Kinase (test code = 2157-6) 64 30-200 [facility] CenterLactic Acid Vjagd0278-03-59 16:01:00* Test Item Value Reference Range Interpretation Comments Lactic Acid Level (test code = Lactic Acid Level) 13.6 4.5- 19.8 [facility] CenterLactic Acid Fcdho7819-54-23 16:01:00* Test Item Value Reference Range Interpretation Comments Lactic Acid Level (test code = Lactic Acid Level) 13.6 4.5- 19.8 [facility] CenterLactic Acid Rlawl3453-82-94 16:01:00* Test Item Value Reference Range Interpretation Comments Lactic Acid Level (test code = Lactic Acid Level) 13.6 4.5- 19.8 [facility] CenterFOOT LEFT KIBVDNEH7334-43-12 14:59:00 [place] [address] Patient Name: MARCO A ROBLES MR #: [id number] : 1970 Age/Sex: 48/M Req #: [id number] Adm Physician: Ordered by: DENNIS GARG COOKER SODA Report #: [id number] Location: ER Room/Bed: Procedure: [id number] DX/FOOT LEFT COMPLETE Exam Date: 06/23/19 Exam Time: 1415 REPORT STATUS: Signed Left foot, 3 views. History: Diabetic ulcer. Findings: There is dis yina soft tissue swelling centered around the first MTP with ulceration. There is no visible adjacent lytic lesion or periosteal reaction. Vascular calcifica tions are present. The bones are diffusely osteopenic. Prior amputation of th e distal second and fourth metatarsals and distal aspect of the left fifth toe is noted. Resorption of the third distal metatarsal is present. Sclerosis and irregularity are present at the first tarsometatarsal joint suggestive of Annalisa rcot joint. IMPRESSION: Distal soft tissue swelling with ulceration. No a cute osseous findings. Nuclear medicine bone scan or MRI would be more sensiti ve for early detection of osteomyelitis. Signed by: Dennis Walker on 06/23 3:25 PM Dictated By: DENNIS WALKER MD 1525 Transcribed By: ERUM on 06/23/19 1525 COPY TO: DENNIS GARG COOKER SODA [facility] SINGLE (PORTABLE)2019-06-23 14:55:00 [place] [address] Patient Name: MARCO A ROBLES MR #: [id number] : 1969 Age/Sex: 48/M Req #: [id number] Adm Physician: Ordered by: DENNIS GARG NP Report #: [id number] Location: ER Room/Bed: Procedure: [id number] DX/CHEST SINGLE (PORTABLE) Exam Date: 06/23/19 Exam Time: 1415 REPORT STATUS: Signed Chest, 1 view, 06/23/2019. History: Diabetic ulcer. Comparison: None available. Findings: The cardiomediastinal silhouette and pulmonary vasculature are within normal limits for a portable exam. There is no focal c onsolidation or pleural effusion. There are no acute osseous or soft tissue a bnormalities. Impression: No acute cardiopulmonary abnormality. S igned by: Dennis Walker on 06/23/2019 2:55 PM Dictated By: DENNIS Santos 54 Transcribed By: ERUM on 06/23/191454 COPY TO: DENNIS GARG COOKER SODA HEMOGLOBIN [id number] 13:03:00* Test Item Value Reference Range Interpretation Comments HEMOGLOBIN A1C (BEAKER) (test code = 368) 6.3 % 4.3-6.1 H COMPREHENSIVE METABOLIC [id number] 11:44:00* Test Item Value Reference Range Interpretation Comments TOTAL PROTEIN (BEAKER) (test code = 770) 7.5 gm/dL 6.0-8.3 ALBUMIN (BEAKER) (test code = 1145) 3.9 g/dL 3.5-5.0 ALKALINE PHOSPHATASE (BEAKER) (test code = 346) 219 U/L 40-150 H BILIRUBIN TOTAL (BEAKER) (test code = 377) 0.9 mg/dL 0.2-1.2 SODIUM (BEAKER) (test code = 381) 137 meq/L 136-145 POTASSIUM (BEAKER) (test code = 379) 4.6 meq/L 3.5-5.1 CHLORIDE (BEAKER) (test code = 382) 102 meq/L 98-107 CO2 (BEAKER) (test code = 355) 24 meq/L 22-29 BLOOD UREA NITROGEN (BEAKER) (test code = 354) 33 mg/dL 7-21 H CREATININE (BEAKER) (test code = 358) 8.34 mg/dL 0.57-1.25 H GLUCOSE RANDOM (BEAKER) (test code = 652) 124 mg/dL 70-105 H CALCIUM (BEAKER) (test code = 697) 8.8 mg/dL 8.4-10.2 AST (SGOT) (BEAKER) (test code = 353) 29 U/L 5-34 ALT (SGPT) (BEAKER) (test code = 347) 17 U/L 6-55 EGFR (BEAKER) (test code = 1092) 7 mL/min/1.73 sq m ESTIMATED GFR IS NOT ACCURATE CREATININE CLEARANCE IN PREDICTING GLOMERULAR FILTRATION RATE. ESTIMATED GFR IS NOT APPLICABLE FOR DIALYSIS PATIENTS. LIPID [id number] 11:31:00* Test Item Value Reference Range Interpretation Comments TRIGLYCERIDES (BEAKER) (test code = 540) 160 mg/dL CHOLESTEROL (BEAKER) (test code = 631) 139 mg/dL HDL CHOLESTEROL (BEAKER) (test code = 976) 34 mg/dL LDL CHOLESTEROL CALCULATED (BEAKER) (test code = 633) 73 mg/dL Triglyceride Reference Range: Low Risk <150 Borderline 150-199 High Risk 200-499 Very High Risk >=500Cholesterol Reference Range: Low Risk <200 Borderline 200-239 High Risk >240HDL Cholesterol Reference Range: Low Risk >=60 High Risk <40LDL Cholesterol Reference Range: Optimal <100 Near Optimal 100-129 Borderline 130-159 High 160-189 Very High >=190 BILIRUBIN, [id number] 11:31:00* Test Item Value Reference Range Interpretation Comments BILIRUBIN DIRECT (BEAKER) (test code = 706) 0.4 mg/dL 0.1-0.5 PROTHROMBIN TIME/[id number] 10:58:00* Test Item Value Reference Range Interpretation Comments PROTIME (BEAKER) (test code = 759) 15.0 seconds 11.9-14.2 H INR (BEAKER) (test code = 370) 1.2 <=5.9 Effective 04/06/2019: PT Reference Range ChangeNew: 11.9-14.2 Previous: 11.7-14. 7RECOMMENDED COUMADIN/WARFARIN INR THERAPY RANGESSTANDARD DOSE: 2.0-3.0 Include s: PROPHYLAXIS for venous thrombosis, systemic embolization; TREATMENT for venou s thrombosis and/or pulmonary embolus.HIGH RISK: Target INR is 2.5-3.5 for patie nts wiht mechanical heart valves.CBC W/PLT COUNT & AUTO [id number] 10:55:00* Test Item Value Reference Range Interpretation Comments WHITE BLOOD CELL COUNT (BEAKER) (test code = 775) 5.3 K/ L 3.5- 10.5 RED BLOOD CELL COUNT (BEAKER) (test code = 761) 3.11 M/ L 4.63-6 .08 L HEMOGLOBIN (BEAKER) (test code = 410) 10.3 GM/DL 13.7-17.5 L HEMATOCRIT (BEAKER) (test code = 411) 28.9 % 40.1-51.0 L MEAN CORPUSCULAR VOLUME (BEAKER) (test code = 753) 92.9 fL 79. 0-92.2 H MEAN CORPUSCULAR HEMOGLOBIN (BEAKER) (test code = 751) 33.1 pg 25.7-32.2 H MEAN CORPUSCULAR HEMOGLOBIN CONC (BEAKER) (test code = 752) 35.6 GM/DL 32.3-36.5 RED CELL DISTRIBUTION WIDTH (BEAKER) (test code = 412) 14.9 % 11.6-14.4 H PLATELET COUNT (BEAKER) (test code = 756) 87 K/CU MM 150-450 L MEAN PLATELET VOLUME (BEAKER) (test code = 754) 10.4 fL 9.4-12 .4 NUCLEATED RED BLOOD CELLS (BEAKER) (test code = 413) 0 /100 WBC 0 -0 NEUTROPHILS RELATIVE PERCENT (BEAKER) (test code = 429) 64 % LYMPHOCYTES RELATIVE PERCENT (BEAKER) (test code = 430) 21 % MONOCYTES RELATIVE PERCENT (BEAKER) (test code = 431) 9 % EOSINOPHILS RELATIVE PERCENT (BEAKER) (test code = 432) 5 % BASOPHILS RELATIVE PERCENT (BEAKER) (test code = 437) 1 % NEUTROPHILS ABSOLUTE COUNT (BEAKER) (test code = 670) 3.41 K/ L 1.78-5.38 LYMPHOCYTES ABSOLUTE COUNT (BEAKER) (test code = 414) 1.14 K/ L 1.32-3.57 L MONOCYTES ABSOLUTE COUNT (BEAKER) (test code = 415) 0.46 K/ L 0. 30-0.82 EOSINOPHILS ABSOLUTE COUNT (BEAKER) (test code = 416) 0.25 K/ L 0.04-0.54 BASOPHILS ABSOLUTE COUNT (BEAKER) (test code = 417) 0.05 K/ L 0. 01-0.08 IMMATURE GRANULOCYTES-RELATIVE PERCENT (BEAKER) (test code = 2801) 0 % 0-1 RAD, BONE DENSITY [id number] 10:38:00Referring: Dr. Stanton Healy for Exam:->H/O Osteoporosis, [...] Verified Date/Time : 05/03/2019 10:38:27 Reading Location: [facility] Women , ABDOMEN, [id number] 15:39:00Referring: Dr. Stanton Mixon Prctocol-Triple PhaseFINAL REPORT ABDOMINAL CT DATED 02/01/2019 [...] MDReport Verified Date/Time: 02/01/2019 15:39:07 Reading Location: [address] Radiology Reading Room [id number] 13:54:00* Test Item Value Reference Range Interpretation Comments FERRITIN (BEAKER) (test code = 361) 488 ng/mL 5-275 H COMPREHENSIVE METABOLIC [id number] 12:54:00* Test Item Value Reference Range Interpretation Comments TOTAL PROTEIN (BEAKER) (test code = 770) 8.2 gm/dL 6.0-8.3 ALBUMIN (BEAKER) (test code = 1145) 4.2 g/dL 3.5-5.0 ALKALINE PHOSPHATASE (BEAKER) (test code = 346) 221 U/L 40-150 H BILIRUBIN TOTAL (BEAKER) (test code = 377) 0.7 mg/dL 0.2-1.2 SODIUM (BEAKER) (test code = 381) 138 meq/L 136-145 POTASSIUM (BEAKER) (test code = 379) 4.7 meq/L 3.5-5.1 CHLORIDE (BEAKER) (test code = 382) 102 meq/L 98-107 CO2 (BEAKER) (test code = 355) 21 meq/L 22-29 L BLOOD UREA NITROGEN (BEAKER) (test code = 354) 33 mg/dL 7-21 H CREATININE (BEAKER) (test code = 358) 8.39 mg/dL 0.57-1.25 H GLUCOSE RANDOM (BEAKER) (test code = 652) 133 mg/dL 70-105 H CALCIUM (BEAKER) (test code = 697) 9.9 mg/dL 8.4-10.2 AST (SGOT) (BEAKER) (test code = 353) 34 U/L 5-34 ALT (SGPT) (BEAKER) (test code = 347) 18 U/L 6-55 EGFR (BEAKER) (test code = 1092) mL/min/1.73 sq m INSUFFICIENT CLINICAL DATA TO CALCULATE ESTIMATED GFR. BILIRUBIN, [id number] 12:52:00* Test Item Value Reference Range Interpretation Comments BILIRUBIN DIRECT (BEAKER) (test code = 706) 0.3 mg/dL 0.1-0.5 IRON, TIBC, % SAT. (WITHOUT FERRITIN)2019-02-01 12:51:00* Test Item Value Reference Range Interpretation Comments IRON (BEAKER) (test code = 547) 65.0 ug/dL 40.0-160.0 TOTAL IRON BINDING CAPACITY (BEAKER) (test code = 769) 265 ug/dL 250-450 IRON % SATURATION (2) (BEAKER) (test code = 2590) 25 % 20-5 5 PROTHROMBIN TIME/[id number] 12:47:00* Test Item Value Reference Range Interpretation Comments PROTIME (BEAKER) (test code = 759) 14.4 seconds 11.7-14.7 INR (BEAKER) (test code = 370) 1.1 <=5.9 RECOMMENDED COUMADIN/WARFARIN INR THERAPY RANGESSTANDARD DOSE: 2.0 - 3.0 Inclu arabella: PROPHYLAXIS for venous thrombosis, systemic embolization; TREATMENT for jan ous thrombosis and/or pulmonary embolus.HIGH RISK: Target INR is 2.5-3.5 for pat ients with mechanical heart valves.CBC W/PLT COUNT & AUTO [id number] 12:25:00* Test Item Value Reference Range Interpretation Comments WHITE BLOOD CELL COUNT (BEAKER) (test code = 775) 5.1 K/ L 3.5- 10.5 RED BLOOD CELL COUNT (BEAKER) (test code = 761) 3.64 M/ L 4.63-6 .08 L HEMOGLOBIN (BEAKER) (test code = 410) 11.7 GM/DL 13.7-17.5 L HEMATOCRIT (BEAKER) (test code = 411) 35.5 % 40.1-51.0 L MEAN CORPUSCULAR VOLUME (BEAKER) (test code = 753) 97.5 fL 79. 0-92.2 H MEAN CORPUSCULAR HEMOGLOBIN (BEAKER) (test code = 751) 32.1 pg 25.7-32.2 MEAN CORPUSCULAR HEMOGLOBIN CONC (BEAKER) (test code = 752) 33.0 GM/DL 32.3-36.5 RED CELL DISTRIBUTION WIDTH (BEAKER) (test code = 412) 13.5 % 11.6-14.4 PLATELET COUNT (BEAKER) (test code = 756) 130 K/CU MM 150-450 L MEAN PLATELET VOLUME (BEAKER) (test code = 754) 10.3 fL 9.4-12 .4 NUCLEATED RED BLOOD CELLS (BEAKER) (test code = 413) 0 /100 WBC 0 -0 NEUTROPHILS RELATIVE PERCENT (BEAKER) (test code = 429) 64 % LYMPHOCYTES RELATIVE PERCENT (BEAKER) (test code = 430) 21 % MONOCYTES RELATIVE PERCENT (BEAKER) (test code = 431) 7 % EOSINOPHILS RELATIVE PERCENT (BEAKER) (test code = 432) 6 % BASOPHILS RELATIVE PERCENT (BEAKER) (test code = 437) 1 % NEUTROPHILS ABSOLUTE COUNT (BEAKER) (test code = 670) 3.28 K/ L 1.78-5.38 LYMPHOCYTES ABSOLUTE COUNT (BEAKER) (test code = 414) 1.07 K/ L 1.32-3.57 L MONOCYTES ABSOLUTE COUNT (BEAKER) (test code = 415) 0.35 K/ L 0. 30-0.82 EOSINOPHILS ABSOLUTE COUNT (BEAKER) (test code = 416) 0.30 K/ L 0.04-0.54 BASOPHILS ABSOLUTE COUNT (BEAKER) (test code = 417) 0.06 K/ L 0. 01-0.08 IMMATURE GRANULOCYTES-RELATIVE PERCENT (BEAKER) (test code = 2801) 1 % 0-1 Bacterial [id number] 09:44:00* Test Item Value Reference Range Interpretation Comments Bacterial Culture (test code = BACTC) GS Bacterial Culture (test code = BACTC1) NOS O:PRACN (test code = PRACN) Propionibacterium acnes Bacterial Culture (test code = BACTC1.1) QUANTITATION: Bacterial Culture (test code = BACTC1.1) Nutrient Broth Only Comment graft siteBLOOD [id number] 19:01:00* Test Item Value Reference Range Interpretation Comments CULTURE (BEAKER) (test code = 1095) No growth in 5 days BASIC METABOLIC [id number] 14:24:00* Test Item Value Reference Range Interpretation Comments SODIUM (BEAKER) (test code = 381) 141 meq/L 136-145 POTASSIUM (BEAKER) (test code = 379) 4.8 meq/L 3.5-5.1 CHLORIDE (BEAKER) (test code = 382) 104 meq/L 98-107 CO2 (BEAKER) (test code = 355) 27 meq/L 22-29 BLOOD UREA NITROGEN (BEAKER) (test code = 354) 26 mg/dL 7-21 H CREATININE (BEAKER) (test code = 358) 8.10 mg/dL 0.57-1.25 H GLUCOSE RANDOM (BEAKER) (test code = 652) 92 mg/dL 70-105 CALCIUM (BEAKER) (test code = 697) 9.4 mg/dL 8.4-10.2 EGFR (BEAKER) (test code = 1092) mL/min/1.73 sq m INSUFFICIENT CLINICAL DATA TO CALCULATE ESTIMATED GFR. PT/[id number] 14:22:00* Test Item Value Reference Range Interpretation Comments PROTIME (BEAKER) (test code = 759) 14.9 seconds 11.7-14.7 H INR (BEAKER) (test code = 370) 1.2 <=5.9 PARTIAL THROMBOPLASTIN TIME (BEAKER) (test code = 760) 44.0 seconds 22.5-36.0 H RECOMMENDED COUMADIN/WARFARIN INR THERAPY RANGESSTANDARD DOSE: 2.0 - 3.0 Inclu arabella: PROPHYLAXIS for venous thrombosis, systemic embolization; TREATMENT for jan ous thrombosis and/or pulmonary embolus.HIGH RISK: Target INR is 2.5-3.5 for pat ients with mechanical heart valves.CBC W/PLT COUNT & AUTO [id number] 14:10:00* Test Item Value Reference Range Interpretation Comments WHITE BLOOD CELL COUNT (BEAKER) (test code = 775) 3.7 K/ L 3.5- 10.5 RED BLOOD CELL COUNT (BEAKER) (test code = 761) 4.02 M/ L 4.63-6 .08 L HEMOGLOBIN (BEAKER) (test code = 410) 13.0 GM/DL 13.7-17.5 L HEMATOCRIT (BEAKER) (test code = 411) 38.6 % 40.1-51.0 L MEAN CORPUSCULAR VOLUME (BEAKER) (test code = 753) 96.0 fL 79. 0-92.2 H MEAN CORPUSCULAR HEMOGLOBIN (BEAKER) (test code = 751) 32.3 pg 25.7-32.2 H MEAN CORPUSCULAR HEMOGLOBIN CONC (BEAKER) (test code = 752) 33.7 GM/DL 32.3-36.5 RED CELL DISTRIBUTION WIDTH (BEAKER) (test code = 412) 14.4 % 11.6-14.4 PLATELET COUNT (BEAKER) (test code = 756) 87 K/CU MM 150-450 L MEAN PLATELET VOLUME (BEAKER) (test code = 754) 9.9 fL 9.4-12 .4 NUCLEATED RED BLOOD CELLS (BEAKER) (test code = 413) 0 /100 WBC 0 -0 NEUTROPHILS RELATIVE PERCENT (BEAKER) (test code = 429) 64 % LYMPHOCYTES RELATIVE PERCENT (BEAKER) (test code = 430) 23 % MONOCYTES RELATIVE PERCENT (BEAKER) (test code = 431) 7 % EOSINOPHILS RELATIVE PERCENT (BEAKER) (test code = 432) 5 % BASOPHILS RELATIVE PERCENT (BEAKER) (test code = 437) 1 % NEUTROPHILS ABSOLUTE COUNT (BEAKER) (test code = 670) 2.36 K/ L 1.78-5.38 LYMPHOCYTES ABSOLUTE COUNT (BEAKER) (test code = 414) 0.83 K/ L 1.32-3.57 L MONOCYTES ABSOLUTE COUNT (BEAKER) (test code = 415) 0.25 K/ L 0. 30-0.82 L EOSINOPHILS ABSOLUTE COUNT (BEAKER) (test code = 416) 0.20 K/ L 0.04-0.54 BASOPHILS ABSOLUTE COUNT (BEAKER) (test code = 417) 0.03 K/ L 0. 01-0.08 IMMATURE GRANULOCYTES-RELATIVE PERCENT (BEAKER) (test code = 2801) 0 % 0-1 Gfkzcwff6540-10-93 16:00:00* Test Item Value Reference Range Interpretation Comments Accuchek (test code = ACU) 242 mg/dL 70-110 H [id number] 13:27:00* Test Item Value Reference Range Interpretation Comments Accuchek (test code = ACU) 91 mg/dL 70-110 N Onkwuzzr5870-94-40 05:42:00* Test Item Value Reference Range Interpretation Comments Accuchek (test code = ACU) 125 mg/dL 70-110 H Chemistry - Wtqnglqk5750-09-27 20:45:00* Test Item Value Reference Range Interpretation Comments Chemistry - Specials (test code = THBSAG) Non-Reactive S/CO NonReac tive Adygrcehyr6640-64-99 12:48:00* Test Item Value Reference Range Interpretation Comments Hematology (test code = WBCT) 6.5 thou/uL 4.8-10.8 N Hematology (test code = RBCT) 2.84 mill/uL 4.70-6.10 L Hematology (test code = HGBT) 9.3 g/dL 14.0-18.0 L Hematology (test code = HCTT) 27.0 % 42.0-52.0 L Hematology (test code = MCV) 95.0 fL 78.0-98.0 N Hematology (test code = MCH) 32.8 pg 27.0-31.0 H Hematology (test code = MCHC) 34.5 g/dL 32.0-36.0 N Hematology (test code = RDW) 14.3 % 11.5-14.5 N Hematology (test code = PLTT) 104 thou/uL 130-400 L Hematology (test code = MPV) 8.2 fL 7.4-10.4 N Hematology (test code = %NEUT) 72.5 % 42.0-75.0 N Hematology (test code = %LYMPH) 17.3 % 21.0-51.0 L Hematology (test code = %MONO) 4.0 % 0.0-10.0 N Hematology (test code = %EOS) 5.1 % 0.0-10.0 N Hematology (test code = %BASO) 1.0 % 0.0-1.0 N Hematology (test code = NEUT#) 4.7 thou/uL 1.40-6.50 N Hematology (test code = LYMPH#) 1.1 thou/uL 1.20-3.40 L Hematology (test code = MONO#) 0.3 thou/uL 0.11-0.59 N Hematology (test code = EOS#) 0.3 thou/uL 0.0-0.7 N Hematology (test code = BASO#) 0.1 thou/uL 0.0-0.2 N Hematology (test code = PCOMMENT) Appears Decreased A Hematology (test code = MC) Normal Comment blue [id number] 12:14:00* Test Item Value Reference Range Interpretation Comments Chemistry (test code = TBILI) 0.9 mg/dL 0.2-1.2 N Chemistry (test code = DBILI) 0.4 mg/dL 0.1-0.3 H Chemistry (test code = TP) 7.6 g/dL 6.0-8.3 N Chemistry (test code = ALB) 4.0 g/dL 3.5-5.0 N Chemistry (test code = ALP) 167 U/L 40-150 H Chemistry (test code = AST) 24 U/L 5-34 N Chemistry (test code = ALT) 7 U/L 8-55 L Vyudqivyf1685-42-05 12:05:00* Test Item Value Reference Range Interpretation Comments Chemistry (test code = NA-T) 139 mmol/L 136-145 N Chemistry (test code = K-T) 5.3 mmol/L 3.5-5.1 H Chemistry (test code = CL) 102 mmol/L 98-107 N Chemistry (test code = CO2) 18 mmol/L 22-29 L Chemistry (test code = ANGP) 24 mmol/L 10-20 H Chemistry (test code = BUN) 110 mg/dL 8.9-20.6 H Chemistry (test code = CREATT) 16.76 mg/dL 0.7-1.3 H Chemistry (test code = EGFRMDRD) 3 Reference Range for Estimated GFR: Greater than 90 mL/min/1.73 m2NOTE:The MDRD equation has not been validated for use with theelderly (over 70 years of age), women, patien tswith serious comorbid condition or persons with extremes ofbody size, muscle mass, or nutritional status. Chemistry (test code = GLU-T) 87 mg/dL 70-105 N Chemistry (test code = CA) 8.5 mg/dL 7.8-10.44 N Comment blue [id number] 11:51:00* Test Item Value Reference Range Interpretation Comments Coagulation (test code = PT-T) 15.9 SEC 12.0-14.7 H Coagulation (test code = INR) 1.3 ATTENTION: READ CAREFULLY The recommended therapeutic ranges for oral anticoagulanttreatments are: Low Intensity: 1.5 - 2.0 Moderate Intensity: 2.0 - 3.0 High Intensity (1): 2.5 - 3.5 High Intensity (2): 3.0 - 4.0 CRITICAL: > 4.0 Anticoagulant? ASPIRINComment blue 2Anticoagulant? RERLGTSKmwgjskylvw2257-23-86 11:51:00* Test Item Value Reference Range Interpretation Comments Coagulation (test code = PTT) 48.0 SEC 22.9-36.1 H Anticoagulant? ASPIRINComment blue 2Anticoagulant? ASPIRINBASIC METABOLIC PANEL 2018-07-27 15:43:00* Test Item Value Reference Range Interpretation Comments SODIUM (BEAKER) (test code = 381) 135 meq/L 136-145 L POTASSIUM (BEAKER) (test code = 379) 4.4 meq/L 3.5-5.1 CHLORIDE (BEAKER) (test code = 382) 97 meq/L 98-107 L CO2 (BEAKER) (test code = 355) 27 meq/L 22-29 BLOOD UREA NITROGEN (BEAKER) (test code = 354) 33 mg/dL 7-21 H CREATININE (BEAKER) (test code = 358) 6.67 mg/dL 0.57-1.25 H GLUCOSE RANDOM (BEAKER) (test code = 652) 98 mg/dL 70-105 CALCIUM (BEAKER) (test code = 697) 9.3 mg/dL 8.4-10.2 EGFR (BEAKER) (test code = 1092) mL/min/1.73 sq m INSUFFICIENT CLINICAL DATA TO CALCULATE ESTIMATED GFR. [id number] 15:34:00* Test Item Value Reference Range Interpretation Comments LIPASE (BEAKER) (test code = 749) 63 U/L 8-78 [id number] 15:34:00* Test Item Value Reference Range Interpretation Comments AMYLASE (BEAKER) (test code = 349) 81 U/L 25-125 HEPATIC FUNCTION [id number] 15:34:00* Test Item Value Reference Range Interpretation Comments TOTAL PROTEIN (BEAKER) (test code = 770) 7.8 gm/dL 6.0-8.3 ALBUMIN (BEAKER) (test code = 1145) 3.9 g/dL 3.5-5.0 BILIRUBIN TOTAL (BEAKER) (test code = 377) 0.7 mg/dL 0.2-1.2 BILIRUBIN DIRECT (BEAKER) (test code = 706) 0.3 mg/dL 0.1-0.5 ALKALINE PHOSPHATASE (BEAKER) (test code = 346) 190 U/L 40-150 H AST (SGOT) (BEAKER) (test code = 353) 27 U/L 5-34 ALT (SGPT) (BEAKER) (test code = 347) 14 U/L 6-55 PROTHROMBIN [id number] 15:19:00* Test Item Value Reference Range Interpretation Comments PROTIME (BEAKER) (test code = 759) 15.0 seconds 11.7-14.7 H INR (BEAKER) (test code = 370) 1.2 <=5.9 RECOMMENDED COUMADIN/WARFARIN INR THERAPY RANGESSTANDARD DOSE: 2.0 - 3.0 Inclu arabella: PROPHYLAXIS for venous thrombosis, systemic embolization; TREATMENT for jan ous thrombosis and/or pulmonary embolus.HIGH RISK: Target INR is 2.5-3.5 for pat ients with mechanical heart valves.CBC W/PLT COUNT & AUTO [id number] 15:13:00* Test Item Value Reference Range Interpretation Comments WHITE BLOOD CELL COUNT (BEAKER) (test code = 775) 4.7 K/ L 3.5- 10.5 RED BLOOD CELL COUNT (BEAKER) (test code = 761) 2.86 M/ L 4.63-6 .08 L HEMOGLOBIN (BEAKER) (test code = 410) 9.0 GM/DL 13.7-17.5 L HEMATOCRIT (BEAKER) (test code = 411) 27.4 % 40.1-51.0 L MEAN CORPUSCULAR VOLUME (BEAKER) (test code = 753) 95.8 fL 79. 0-92.2 H MEAN CORPUSCULAR HEMOGLOBIN (BEAKER) (test code = 751) 31.5 pg 25.7-32.2 MEAN CORPUSCULAR HEMOGLOBIN CONC (BEAKER) (test code = 752) 32.8 GM/DL 32.3-36.5 RED CELL DISTRIBUTION WIDTH (BEAKER) (test code = 412) 15.9 % 11.6-14.4 H PLATELET COUNT (BEAKER) (test code = 756) 134 K/CU MM 150-450 L MEAN PLATELET VOLUME (BEAKER) (test code = 754) 10.2 fL 9.4-12 .4 NUCLEATED RED BLOOD CELLS (BEAKER) (test code = 413) 0 /100 WBC 0 -0 NEUTROPHILS RELATIVE PERCENT (BEAKER) (test code = 429) 59 % LYMPHOCYTES RELATIVE PERCENT (BEAKER) (test code = 430) 25 % MONOCYTES RELATIVE PERCENT (BEAKER) (test code = 431) 10 % EOSINOPHILS RELATIVE PERCENT (BEAKER) (test code = 432) 5 % BASOPHILS RELATIVE PERCENT (BEAKER) (test code = 437) 1 % NEUTROPHILS ABSOLUTE COUNT (BEAKER) (test code = 670) 2.76 K/ L 1.78-5.38 LYMPHOCYTES ABSOLUTE COUNT (BEAKER) (test code = 414) 1.19 K/ L 1.32-3.57 L MONOCYTES ABSOLUTE COUNT (BEAKER) (test code = 415) 0.45 K/ L 0. 30-0.82 EOSINOPHILS ABSOLUTE COUNT (BEAKER) (test code = 416) 0.23 K/ L 0.04-0.54 BASOPHILS ABSOLUTE COUNT (BEAKER) (test code = 417) 0.03 K/ L 0. 01-0.08 IMMATURE GRANULOCYTES-RELATIVE PERCENT (BEAKER) (test code = 2801) 0 % 0-1 68717 SURGICAL PATHOLOGY, LEVEL [id number] 16:44:00 [place] [address] Laboratory Fax: Printed: 07/07/18 1644 [facility] DAEMPathology Page: 1 Patient: MARCO A ROBLES Birthdate: Age/Sex: 47/M Spec#: [id number]: Brendan Mireles MD Specimen Date: [...] Entered by:07/07/18 - 1534 LAB. YGP PROCEDURES: 40626/3 Patient: MARCO A ROBLES ADILENE Re07/06/18Loc: [facility] MR#: [id number] CONTINUED ON NEXT PAGE Dis: Sta: DEP SDC [address] [address] Tel: Laboratory Printed: 0 07/07/18 0368 [facility] Page: 2 ---- -------- Patient: MARCO A ROBLES [id number] (Continued)- GROSS DESCRIPTION A. POLY P, COLON [...] MADI GOMEZ Entered by: 07/06/18 - 1604 [facility].YGP MICROSCOPIC DESCRIPTION A microscopic examination was performed to arrive at the diagnostic conclusion reported. Signed (Electronically Signed) Debra Elizabeth MD 07/07/18 Patient: MARCO A ROBLES Re07/06/18Loc: [facility] MR#: [id number] END OF R EPORT Dis: Sta: DEP SDCCOMPREHENSIVE METABOLIC [id number] 14:52:00* Test Item Value Reference Range Interpretation Comments TOTAL PROTEIN (BEAKER) (test code = 770) 8.7 gm/dL 6.0-8.3 H ALBUMIN (BEAKER) (test code = 1145) 4.2 g/dL 3.5-5.0 ALKALINE PHOSPHATASE (BEAKER) (test code = 346) 204 U/L 40-150 H BILIRUBIN TOTAL (BEAKER) (test code = 377) 0.8 mg/dL 0.2-1.2 SODIUM (BEAKER) (test code = 381) 138 meq/L 136-145 POTASSIUM (BEAKER) (test code = 379) 4.8 meq/L 3.5-5.1 CHLORIDE (BEAKER) (test code = 382) 100 meq/L 98-107 CO2 (BEAKER) (test code = 355) 26 meq/L 22-29 BLOOD UREA NITROGEN (BEAKER) (test code = 354) 23 mg/dL 7-21 H CREATININE (BEAKER) (test code = 358) 5.87 mg/dL 0.57-1.25 H GLUCOSE RANDOM (BEAKER) (test code = 652) 117 mg/dL 70-105 H CALCIUM (BEAKER) (test code = 697) 9.5 mg/dL 8.4-10.2 AST (SGOT) (BEAKER) (test code = 353) 38 U/L 5-34 H ALT (SGPT) (BEAKER) (test code = 347) 21 U/L 6-55 EGFR (BEAKER) (test code = 1092) mL/min/1.73 sq m INSUFFICIENT CLINICAL DATA TO CALCULATE ESTIMATED GFR. BILIRUBIN, [id number] 14:43:00* Test Item Value Reference Range Interpretation Comments BILIRUBIN DIRECT (BEAKER) (test code = 706) 0.4 mg/dL 0.1-0.5 PROTHROMBIN TIME/[id number] 14:27:00* Test Item Value Reference Range Interpretation Comments PROTIME (BEAKER) (test code = 759) 15.3 seconds 11.7-14.7 H INR (BEAKER) (test code = 370) 1.2 <=5.9 RECOMMENDED COUMADIN/WARFARIN INR THERAPY RANGESSTANDARD DOSE: 2.0 - 3.0 Inclu arabella: PROPHYLAXIS for venous thrombosis, systemic embolization; TREATMENT for jan ous thrombosis and/or pulmonary embolus.HIGH RISK: Target INR is 2.5-3.5 for pat ients with mechanical heart valves.CBC W/PLT COUNT & AUTO [id number] 14:17:00* Test Item Value Reference Range Interpretation Comments WHITE BLOOD CELL COUNT (BEAKER) (test code = 775) 5.2 K/ L 3.5- 10.5 RED BLOOD CELL COUNT (BEAKER) (test code = 761) 3.71 M/ L 4.63-6 .08 L HEMOGLOBIN (BEAKER) (test code = 410) 11.9 GM/DL 13.7-17.5 L HEMATOCRIT (BEAKER) (test code = 411) 36.3 % 40.1-51.0 L MEAN CORPUSCULAR VOLUME (BEAKER) (test code = 753) 97.8 fL 79. 0-92.2 H MEAN CORPUSCULAR HEMOGLOBIN (BEAKER) (test code = 751) 32.1 pg 25.7-32.2 MEAN CORPUSCULAR HEMOGLOBIN CONC (BEAKER) (test code = 752) 32.8 GM/DL 32.3-36.5 RED CELL DISTRIBUTION WIDTH (BEAKER) (test code = 412) 15.6 % 11.6-14.4 H PLATELET COUNT (BEAKER) (test code = 756) 129 K/CU MM 150-450 L MEAN PLATELET VOLUME (BEAKER) (test code = 754) 10.2 fL 9.4-12 .4 NUCLEATED RED BLOOD CELLS (BEAKER) (test code = 413) 0 /100 WBC 0 -0 NEUTROPHILS RELATIVE PERCENT (BEAKER) (test code = 429) 63 % LYMPHOCYTES RELATIVE PERCENT (BEAKER) (test code = 430) 24 % MONOCYTES RELATIVE PERCENT (BEAKER) (test code = 431) 5 % EOSINOPHILS RELATIVE PERCENT (BEAKER) (test code = 432) 6 % BASOPHILS RELATIVE PERCENT (BEAKER) (test code = 437) 1 % NEUTROPHILS ABSOLUTE COUNT (BEAKER) (test code = 670) 3.29 K/ L 1.78-5.38 LYMPHOCYTES ABSOLUTE COUNT (BEAKER) (test code = 414) 1.26 K/ L 1.32-3.57 L MONOCYTES ABSOLUTE COUNT (BEAKER) (test code = 415) 0.28 K/ L 0. 30-0.82 L EOSINOPHILS ABSOLUTE COUNT (BEAKER) (test code = 416) 0.29 K/ L 0.04-0.54 BASOPHILS ABSOLUTE COUNT (BEAKER) (test code = 417) 0.05 K/ L 0. 01-0.08 IMMATURE GRANULOCYTES-RELATIVE PERCENT (BEAKER) (test code = 2801) 0 % 0-1 CT, ABDOMEN, [id number] 16:18:00Referring: [facility] the [facility] with [...] of liver and/o r kidney disease. Signed: Socorro Murray MDReport Verified Date/Time: 05/25/2018 16:18:20 Reading Location: [address] Radiology Reading Room Electronic ally signed by: SOCORRO MURRAY M.D. on 05/25/2018 04:18 PM HEMOGLOBIN A1C 2018-05-25 14:18:00* Test Item Value Reference Range Interpretation Comments HEMOGLOBIN A1C (test code = 368) 4.4 % 4.3-6.1 ALPHA FETOPROTEIN (AFP), TUMOR [id number] 13:57:00* Test Item Value Reference Range Interpretation Comments ALPHA-FETOPROTEIN (BEAKER) (test code = 1094) 3.1 ng/mL <10.0 HEPATITIS A ANTIBODY, [id number] 13:57:00* Test Item Value Reference Range Interpretation Comments HEPATITIS A IGG ANTIBODY (BEAKER) (test code = 2797) Nonreactive N onreactive COMPREHENSIVE METABOLIC [id number] 13:40:00* Test Item Value Reference Range Interpretation Comments TOTAL PROTEIN (BEAKER) (test code = 770) 8.1 gm/dL 6.0-8.3 ALBUMIN (BEAKER) (test code = 1145) 3.8 g/dL 3.5-5.0 ALKALINE PHOSPHATASE (BEAKER) (test code = 346) 158 U/L 40-150 H BILIRUBIN TOTAL (BEAKER) (test code = 377) 0.6 mg/dL 0.2-1.2 SODIUM (BEAKER) (test code = 381) 140 meq/L 136-145 POTASSIUM (BEAKER) (test code = 379) 4.2 meq/L 3.5-5.1 CHLORIDE (BEAKER) (test code = 382) 99 meq/L 98-107 CO2 (BEAKER) (test code = 355) 28 meq/L 22-29 BLOOD UREA NITROGEN (BEAKER) (test code = 354) 32 mg/dL 7-21 H CREATININE (BEAKER) (test code = 358) 5.87 mg/dL 0.57-1.25 H GLUCOSE RANDOM (BEAKER) (test code = 652) 129 mg/dL 70-105 H CALCIUM (BEAKER) (test code = 697) 9.4 mg/dL 8.4-10.2 AST (SGOT) (BEAKER) (test code = 353) 22 U/L 5-34 ALT (SGPT) (BEAKER) (test code = 347) < U/L 6-55 L EGFR (BEAKER) (test code = 1092) mL/min/1.73 sq m INSUFFICIENT CLINICAL DATA TO CALCULATE ESTIMATED GFR. BILIRUBIN, [id number] 13:36:00* Test Item Value Reference Range Interpretation Comments BILIRUBIN DIRECT (BEAKER) (test code = 706) 0.3 mg/dL 0.1-0.5 PROTHROMBIN TIME/[id number] 13:01:00* Test Item Value Reference Range Interpretation Comments PROTIME (BEAKER) (test code = 759) 15.7 seconds 11.7-14.7 H INR (BEAKER) (test code = 370) 1.3 <=5.9 RECOMMENDED COUMADIN/WARFARIN INR THERAPY RANGESSTANDARD DOSE: 2.0 - 3.0 Inclu arabella: PROPHYLAXIS for venous thrombosis, systemic embolization; TREATMENT for jan ous thrombosis and/or pulmonary embolus.HIGH RISK: Target INR is 2.5-3.5 for pat ients with mechanical heart valves.CBC W/PLT COUNT & AUTO [id number] 12:56:00* Test Item Value Reference Range Interpretation Comments WHITE BLOOD CELL COUNT (BEAKER) (test code = 775) 5.4 K/ L 3.5- 10.5 RED BLOOD CELL COUNT (BEAKER) (test code = 761) 2.47 M/ L 4.63-6 .08 L HEMOGLOBIN (BEAKER) (test code = 410) 8.1 GM/DL 13.7-17.5 L HEMATOCRIT (BEAKER) (test code = 411) 26.2 % 40.1-51.0 L MEAN CORPUSCULAR VOLUME (BEAKER) (test code = 753) 106.1 fL 79. 0-92.2 H MEAN CORPUSCULAR HEMOGLOBIN (BEAKER) (test code = 751) 32.8 pg 25.7-32.2 H MEAN CORPUSCULAR HEMOGLOBIN CONC (BEAKER) (test code = 752) 30.9 GM/DL 32.3-36.5 L RED CELL DISTRIBUTION WIDTH (BEAKER) (test code = 412) 15.7 % 11.6-14.4 H PLATELET COUNT (BEAKER) (test code = 756) 126 K/CU MM 150-450 L MEAN PLATELET VOLUME (BEAKER) (test code = 754) 11.0 fL 9.4-12 .4 NUCLEATED RED BLOOD CELLS (BEAKER) (test code = 413) 0 /100 WBC 0 -0 NEUTROPHILS RELATIVE PERCENT (BEAKER) (test code = 429) 62 % LYMPHOCYTES RELATIVE PERCENT (BEAKER) (test code = 430) 22 % MONOCYTES RELATIVE PERCENT (BEAKER) (test code = 431) 9 % EOSINOPHILS RELATIVE PERCENT (BEAKER) (test code = 432) 6 % BASOPHILS RELATIVE PERCENT (BEAKER) (test code = 437) 1 % NEUTROPHILS ABSOLUTE COUNT (BEAKER) (test code = 670) 3.33 K/ L 1.78-5.38 LYMPHOCYTES ABSOLUTE COUNT (BEAKER) (test code = 414) 1.20 K/ L 1.32-3.57 L MONOCYTES ABSOLUTE COUNT (BEAKER) (test code = 415) 0.48 K/ L 0. 30-0.82 EOSINOPHILS ABSOLUTE COUNT (BEAKER) (test code = 416) 0.30 K/ L 0.04-0.54 BASOPHILS ABSOLUTE COUNT (BEAKER) (test code = 417) 0.03 K/ L 0. 01-0.08 IMMATURE GRANULOCYTES-RELATIVE PERCENT (BEAKER) (test code = 2801) 0 % 0-1 AFB [id number] 11:14:00* Test Item Value Reference Range Interpretation Comments AFB Smear (test code = AFBSM) Staining procedure: Aura mine-Rhodamine Fluorescent Stain. AFB Smear (test code = AFBSM1) AFB AFB Smear (test code = AFBSM1) 0 CPT Modifier: 59AFB [id number] 11:14:00* Test Item Value Reference Range Interpretation Comments AFB Smear (test code = AFBSM) AFB AFB Smear (test code = AFBSM1) 0 CPT Modifier: 59Culture, [id number] 11:14:00* Test Item Value Reference Range Interpretation Comments Culture, AFB (test code = AFBC) NO ACID-FAST BACILLI ISOLATED AT 6 WEEKS CPT Modifier: 59Culture, [id number] 11:14:00* Test Item Value Reference Range Interpretation Comments Culture, AFB (test code = AFBC) NO ACID-FAST BACILLI ISOLATED AT 6 WEEKS CPT Modifier: 59Reference Lab [id number] 11:49:00* Test Item Value Reference Range Interpretation Comments Reference Lab Testing (test code = FUNGT) Final report . Reference Lab Testing (test code = FUNGR1) . No yeast or mold isolated after 4 weeks.Performed at: [address] [id number] Director: Parvez Colindres MD, Phone: [phone] Reference Lab Testing (test code = FUNGSTAINT) Final report . Reference Lab Testing (test code = FUNGST) . DAREN/Calcofluor preparation: no fungus observed.SAME RESULT Source description: FLUIDGeneral Source: PERICARDIUMReference Lab Testing 2018-05-03 11:49:00* Test Item Value Reference Range Interpretation Comments Reference Lab Testing (test code = FUNGT) Final report . Reference Lab Testing (test code = FUNGR1) . No yeast or mold isolated after 4 weeks.Performed at: [address] [id number] Director: Parvez Colindres MD, Phone: [phone] Reference Lab Testing (test code = FUNGSTAINT) Final report . Reference Lab Testing (test code = FUNGST) . DAREN/Calcofluor preparation: no fungus observed.SAME RESULT General Source: PERICARDIUMBody Fluid [id number] 10:40:00* Test Item Value Reference Range Interpretation Comments Body Fluid Culture (test code = FLUIDC) NO GROWTH IN 5 DAYS Body Fluid Culture (test code = FLUIDC1) GS Body Fluid Culture (test code = FLUIDC1) NOS CPT Modifier: 59Bacterial [id number] 10:39:00* Test Item Value Reference Range Interpretation Comments Bacterial Culture (test code = BACTC) NO GROWTH IN 5 DAYS Bacterial Culture (test code = BACTC1) GS Bacterial Culture (test code = BACTC1) NOS CPT Modifier: 59Culture, [id number] 10:39:00* Test Item Value Reference Range Interpretation Comments Culture, Anaerobe (test code = ANAER) NO ANAEROBES ISOLATED IN 5 DA YS CPT Modifier: 59Culture, [id number] 16:40:00* Test Item Value Reference Range Interpretation Comments Culture, Blood (test code = BC) NG5 [id number] 11:04:00* Test Item Value Reference Range Interpretation Comments Accuchek (test code = ACU) 115 mg/dL 70-110 H Azwobqfn0867-07-15 06:30:00* Test Item Value Reference Range Interpretation Comments Accuchek (test code = ACU) 124 mg/dL 70-110 H [id number] 20:53:00* Test Item Value Reference Range Interpretation Comments Accuchek (test code = ACU) 113 mg/dL 70-110 H [id number] 16:54:00* Test Item Value Reference Range Interpretation Comments Accuchcolt (test code = ACU) 159 mg/dL 70-110 H [id number] 05:07:00* Test Item Value Reference Range Interpretation Comments Mick (test code = ACU) 122 mg/dL 70-110 H 33566 SURGICAL PATHOLOGY, LEVEL [id number] 13:05:[address] [address] [address] Laboratory Fax: Printed: 04/01/[address] [place] [address] DAEMPathology Page: 1 Patient: MARCO A ROBLES Birthdate: Age/Sex: 47/M Spec#: [id number]: Flaco Rios MD Specimen Date: 03/30 Received Date: 03/31/18 Specim en: PERICARDIAL BIOPSY CLINICAL SAMANTHA GNOSIS pericardial effusion PATHOLOGI C DIAGNOSIS Pericardium, biopsy: - Benign reactive appearing p ericardial tissue with detached fragments of blood andfibrinous material consist ent with the history of effusion. - No malignancy identified. Comment: The yaritza cardenas has a history of staphylococcus sepsis and a pericardial effusion.Sections of this pericardium are consistent with the changes associated with effusion.Th ere is no neoplastic process identified. This case is correlated with the cytolo gic report of the pericardial effusion and showssimilar findings ([id number]). Pa thologist:nE Suarez MD Entered by:04/01/18 - 1214 LAB.YGP PRO MAY: [id number] GROSS DESCRIPTION Cynthia ent: MARCO A ROBLES Re03/30/18Loc: Kam[facility] ORDONEZ MR#: [id number] CONTINUED ON NEXT PAGE Dis: Sta: ADM IN [facility] [address] [place] [address] Lab oratory Printed: 04/01/18 1307 [facility] DAEMPathology Fax: Page: 2 Patient: MARCO A ROBLES [id number] (Continued) GROSS DESCRIPTION (Continued) A. PERICARDIAL BIOPSY The specimen is received in 10% formalin labeled with the patient's name and "pericardium".The specimen consists of a monaco to light brown tissue fragment measuring 1.2 x 1.0 x 0.5 cmin greatest dimens ions. The specimen is serially sectioned and entirely submitted in onecassette. Dictated by: Ashley Mitchell Entered by: 03/31/18 - 1105 LAB.YGP MICROSCOPIC DESCRIPTION A microscopic examination was perfor med to arrive at the diagnostic conclusion reported. Lisseth santos (Electronically Signed) En Suarez MD 04/01/18 Patient: MARCO A ROBLES Re03/30/18Loc: [facility] MR#: [id number] END OF R EPORT Dis: Sta: [place] [id number] SURGICAL PATHOLOGY, LEVEL IV 2018-04-01 13:04:[address] [address] Laboratory Fax: Printed: 04/01/18 130 [facility] DAEMPathology Page: 1 Patient: MARCO A ROBLES Birthdate: Age/Sex: 47/M Spec#: [id number]: Flaco Rios MD Specimen Date: [...] is correlated with the pericardial tissue biopsy ([id number]). Pathologist:En Suarez MD Entered by:04/01/18 - 120 LAB.YGP PROCEDURES: 80394, 61046 GROSS DESCRIPTION A. FLUID, PERICARDIAL Received 70 ml dark bloody fluid containing CytoLyt. Prepared 1 ThinPrep slide and a cell bl ock. Dictated by: Adilia CRUZ (ASCP) Entered by: 03/31/18924 LAB.CAROLINA Porter atient: MARCO A ROBLES Re03/30/18Loc : [facility] MR#: [id number] CONTINUED ON NEXT PAGE Dis: Sta: ADM IN [address] [address] Laboratory Printed: 04/01/[address] [place] [address] DAEMPathology Fax: Page: 2 Patient: MARCO A ROBLES [id number] (Continued) MICROSCOPIC DESCRIPTION A microscopic examination was performed to arrive at the diagnostic conclusion reported. Sig bautista (Electronically Signed) En Suarez MD 04/01/18 Patient: MARCO A ROBLES ADILENE Re03/30/18Loc: [facility] MR#: [id number] END OF REPORT Dis: Sta: ADM IN [id number] 09:10:00* Test Item Value Reference Range Interpretation Comments Chemistry (test code = NA-T) 136 mmol/L 136-145 N Chemistry (test code = K-T) 4.2 mmol/L 3.5-5.1 N Chemistry (test code = CL) 99 mmol/L 98-107 N Chemistry (test code = CO2) 27 mmol/L 22-29 N Chemistry (test code = ANGP) 14 mmol/L 10-20 N Chemistry (test code = BUN) 25 mg/dL 8.9-20.6 H Chemistry (test code = CREATT) 6.27 mg/dL 0.6-1.3 H Chemistry (test code = EGFRMDRD) 10 Reference Range for Estimated GFR: Greater than 90 mL/min/1.73 m2NOTE:The MDRD equation has not been validated for use with theelderly (over 70 years of age), women, patien tswith serious comorbid condition or persons with extremes ofbody size, muscle mass, or nutritional status. Chemistry (test code = GLU-T) 134 mg/dL 70-105 H Chemistry (test code = CA) 8.0 mg/dL 7.8-10.44 N Chemistry (test code = TBILI) 0.3 mg/dL 0.2-1.2 N Chemistry (test code = TP) 7.1 g/dL 6.0-8.3 N Chemistry (test code = ALB) 2.9 g/dL 3.5-5.0 L Chemistry (test code = GLOB) 4.2 g/dL 2.4-3.5 H Chemistry (test code = AG) 0.7 g/dL 1.2-2.2 L Chemistry (test code = ALP) 124 U/L 40-150 N Chemistry (test code = AST) 22 U/L 5-34 N Chemistry (test code = ALT) Less than 7 U/L 8-55 L [id number] 09:02:00* Test Item Value Reference Range Interpretation Comments Hematology (test code = WBCT) 10.7 thou/uL 4.8-10.8 N Hematology (test code = RBCT) 2.87 mill/uL 4.70-6.10 L Hematology (test code = HGBT) 9.6 g/dL 14.0-18.0 L Hematology (test code = HCTT) 29.2 % 42.0-52.0 L Hematology (test code = MCV) 102.0 fl 80.0-94.0 H Hematology (test code = MCH) 33.4 pg 27.0-31.0 H Hematology (test code = MCHC) 32.8 g/dL 32.0-36.0 N Hematology (test code = RDW) 13.9 % 11.5-14.5 N Hematology (test code = PLTT) 165 thou/uL 130-400 N Hematology (test code = MPV) 8.0 fL 7.4-10.4 N Hematology (test code = %NEUT) 72.7 % 42.0-75.0 N Hematology (test code = %LYMPH) 17.7 % 21.0-51.0 L Hematology (test code = %MONO) 6.4 % 0.0-10.0 N Hematology (test code = %EOS) 2.3 % 0.0-10.0 N Hematology (test code = %BASO) 0.9 % 0.0-1.0 N Hematology (test code = NEUT#) 7.8 thou/uL 1.40-6.50 H Hematology (test code = LYMPH#) 1.9 thou/uL 1.20-3.40 N Hematology (test code = MONO#) 0.7 thou/uL 0.11-0.59 H Hematology (test code = EOS#) 0.2 thou/uL 0.0-0.7 N Hematology (test code = BASO#) 0.1 thou/uL 0.0-0.2 N [id number] 04:19:00* Test Item Value Reference Range Interpretation Comments Accuchek (test code = ACU) 124 mg/dL 70-110 H Hematology - [id number] 08:17:00* Test Item Value Reference Range Interpretation Comments Hematology - Fluids (test code = CCDIFFBF) PERICARDIAL FLUID Hematology - Fluids (test code = CCDIFFCL) Cloudy/Turbid Clear A Hematology - Fluids (test code = CCDIFFBFCOL) Red Hematology - Fluids (test code = CCDIFFTUBE) EDTA Hematology - Fluids (test code = CCDIFFWBCA) 3320 /cumm Hematology - Fluids (test code = CCDIFFRBCA) [id number] /cumm Hematology - Fluids (test code = CCDIFFREFR) Note: The reference range and other method performancespecifications have not been established for this bodyfluid. The test result must be integrated into the clinicalcontext for interpretation. Source: PERICARDIAL FLUIDHematology - [id number] 08:17:00* Test Item Value Reference Range Interpretation Comments Hematology - Fluids (test code = CCDIFFBFNE) 71 % Hematology - Fluids (test code = CCDIFFLY) 25 % Hematology - Fluids (test code = CCDIFFEO) 1 % Hematology - Fluids (test code = CCDIFFBASO) 1 % Hematology - Fluids (test code = CCDIFFNON) 2 % Non-Hematic cells consist of macrophages, endothelial,histiocytic and mesothelial cells. Hematology - Fluids (test code = CCDIFFDC) No abnormal cells seen during slide review by technologist. Source: PERICARDIAL FLUIDHematology - [id number] 08:17:00* Test Item Value Reference Range Interpretation Comments Hematology - Fluids (test code = PATHF) PERIPHERAL BLOOD ELEMENTS.NEGATIVE FOR MALIGNANT CELLS.ELIAS BENJAMIN M.D.CPT 80287 Source: PERICARDIAL FLUIDChemistry - Body [id number] 20:24:00* Test Item Value Reference Range Interpretation Comments Chemistry - Body Fluids (test code = FLUGLU) 43 mg/dL Not Avail able Fluid Source: PERICARDIAL FLUIDThe reference range and other method performancespecifications have not been established for this bodyfluid. The test result must be integrated into the clinicalcontext for interpretation. FLUID SOURCE: PERICARDIAL FLUIDChemistry - Body [id number] 20:24:00* Test Item Value Reference Range Interpretation Comments Chemistry - Body Fluids (test code = FLUTP) 7.9 g/dL Not Availa ble Fluid Source: []The reference range and other method performancespecifications have not been established for this bodyfluid. The test result must be integrated into the clinicalcontext for interpretation. FLUID SOURCE: PERICARDIAL FLUIDChemistry - Body [id number] 20:24:00* Test Item Value Reference Range Interpretation Comments Chemistry - Body Fluids (test code = FLUAMY) 24 U/L Not Avail able The reference range and other method performancespecifications have not been established for this bodyfluid. The test result must be integrated into the clinicalcontext for interpretation. FLUID SOURCE: PERICARDIAL FLUIDChemistry - Body [id number] 20:24:00* Test Item Value Reference Range Interpretation Comments Chemistry - Body Fluids (test code = FLULDH) 1815 U/L Not Avail able The reference range and other method performancespecifications have not been established for this bodyfluid. The test result must be integrated into the clinicalcontext for interpretation. FLUID SOURCE: PERICARDIAL FLUIDChemistry - Body [id number] 20:24:00* Test Item Value Reference Range Interpretation Comments Chemistry - Body Fluids (test code = PHFLU) 7.4 Fluid Source: PERICARDIAL FLUID SOURCE: PERICARDIAL [id number] 16:54:00* Test Item Value Reference Range Interpretation Comments Accuchek (test code = ACU) 114 mg/dL 70-110 H Unuwvkgq6730-00-89 13:58:00* Test Item Value Reference Range Interpretation Comments Accuchek (test code = ACU) 110 mg/dL 70-110 N [id number] 09:43:00* Test Item Value Reference Range Interpretation Comments Accuchek (test code = ACU) 131 mg/dL 70-110 H Sjbdfipmf7380-03-80 05:20:00* Test Item Value Reference Range Interpretation Comments Chemistry (test code = NA-T) 133 mmol/L 136-145 L Chemistry (test code = K-T) 5.8 mmol/L 3.5-5.1 H Chemistry (test code = CL) 98 mmol/L 98-107 N Chemistry (test code = CO2) 22 mmol/L 22-29 N Chemistry (test code = ANGP) 19 mmol/L 10-20 N Chemistry (test code = BUN) 59 mg/dL 8.9-20.6 H Chemistry (test code = CREATT) 10.40 mg/dL 0.6-1.3 H Chemistry (test code = EGFRMDRD) 5 Reference Range for Estimated GFR: Greater than 90 mL/min/1.73 m2NOTE:The MDRD equation has not been validated for use with theelderly (over 70 years of age), women, patien tswith serious comorbid condition or persons with extremes ofbody size, muscle mass, or nutritional status. Chemistry (test code = BCR) 5.67 Chemistry (test code = GLU-T) 146 mg/dL 70-105 H Chemistry (test code = CA) 7.6 mg/dL 7.8-10.44 L Chemistry (test code = ALB) 3.2 g/dL 3.5-5.0 L Chemistry (test code = PHOS) 8.9 mg/dL 2.3-4.7 H [id number] 05:12:00* Test Item Value Reference Range Interpretation Comments Hematology (test code = WBCT) 13.9 thou/uL 4.8-10.8 H Hematology (test code = RBCT) 2.98 mill/uL 4.70-6.10 L Hematology (test code = HGBT) 9.7 g/dL 14.0-18.0 L Hematology (test code = HCTT) 29.8 % 42.0-52.0 L Hematology (test code = MCV) 99.8 fl 80.0-94.0 H Hematology (test code = MCH) 32.6 pg 27.0-31.0 H Hematology (test code = MCHC) 32.6 g/dL 32.0-36.0 N Hematology (test code = RDW) 13.9 % 11.5-14.5 N Hematology (test code = PLTT) 273 thou/uL 130-400 N Hematology (test code = MPV) 7.6 fL 7.4-10.4 N Hematology (test code = %NEUT) 80.9 % 42.0-75.0 H Hematology (test code = %LYMPH) 12.2 % 21.0-51.0 L Hematology (test code = %MONO) 4.9 % 0.0-10.0 N Hematology (test code = %EOS) 1.6 % 0.0-10.0 N Hematology (test code = %BASO) 0.4 % 0.0-1.0 N Hematology (test code = NEUT#) 11.3 thou/uL 1.40-6.50 H Hematology (test code = LYMPH#) 1.7 thou/uL 1.20-3.40 N Hematology (test code = MONO#) 0.7 thou/uL 0.11-0.59 H Hematology (test code = EOS#) 0.2 thou/uL 0.0-0.7 N Hematology (test code = BASO#) 0.1 thou/uL 0.0-0.2 N [id number] 04:48:00* Test Item Value Reference Range Interpretation Comments Accuchek (test code = ACU) 162 mg/dL 70-110 H [id number] 19:09:00* Test Item Value Reference Range Interpretation Comments Chemistry (test code = TROPI-T) 0.031 ng/mL < 0.028 H Reference Range 0.00 - 0.028 ng/mL Negative 0.029 - 0.29 ng/mL Indeterminate Greater or Equal to 0.3 ng/mL Strongly suggests DE Sdzogikkb9230-32-25 16:05:00* Test Item Value Reference Range Interpretation Comments Chemistry (test code = TROPI-T) 0.032 ng/mL < 0.028 H Reference Range 0.00 - 0.028 ng/mL Negative 0.029 - 0.29 ng/mL Indeterminate Greater or Equal to 0.3 ng/mL Strongly suggests DE Lramvmywc7444-29-58 15:47:00* Test Item Value Reference Range Interpretation Comments Chemistry (test code = CORTS) 14.80 ug/dL See Ranges REFERENCE RANGES: CORTISOL, serum Before 10 am 3.7 - 19.4 ug/dL After 5pm 2.9 - 17.3 ug/dL Is this an ACTH or Cortrosyn STIMULATION Test? UHDzayrtatd1085-62-73 13:01:00* Test Item Value Reference Range Interpretation Comments Chemistry (test code = CKMBM-T) 0.5 ng/mL 0-6.6 N Chemistry (test code = TROPI-T) 0.037 ng/mL < 0.028 H Reference Range 0.00 - 0.028 ng/mL Negative 0.029 - 0.29 ng/mL Indeterminate Greater or Equal to 0.3 ng/mL Strongly suggests DE Yhxdzummi5876-13-39 12:56:00* Test Item Value Reference Range Interpretation Comments Chemistry (test code = LIP) 32 U/L 8-78 N Rheqbddaw7145-70-31 12:56:00* Test Item Value Reference Range Interpretation Comments Chemistry (test code = MG) 2.2 mg/dL 1.6-2.6 N Afoyfmmhl8973-89-96 12:51:00* Test Item Value Reference Range Interpretation Comments Chemistry (test code = NA-T) 137 mmol/L 136-145 N Chemistry (test code = K-T) 4.6 mmol/L 3.5-5.1 N Chemistry (test code = CL) 99 mmol/L 98-107 N Chemistry (test code = CO2) 24 mmol/L 22-29 N Chemistry (test code = ANGP) 19 mmol/L 10-20 N Chemistry (test code = BUN) 52 mg/dL 8.9-20.6 H Chemistry (test code = CREATT) 9.73 mg/dL 0.6-1.3 H Chemistry (test code = EGFRMDRD) 6 Reference Range for Estimated GFR: Greater than 90 mL/min/1.73 m2NOTE:The MDRD equation has not been validated for use with theelderly (over 70 years of age), women, patien tswith serious comorbid condition or persons with extremes ofbody size, muscle mass, or nutritional status. Chemistry (test code = GLU-T) 120 mg/dL 70-105 H Chemistry (test code = CA) 8.0 mg/dL 7.8-10.44 N Chemistry (test code = TBILI) 0.4 mg/dL 0.2-1.2 N Chemistry (test code = TP) 7.7 g/dL 6.0-8.3 N Chemistry (test code = ALB) 3.2 g/dL 3.5-5.0 L Chemistry (test code = GLOB) 4.5 g/dL 2.4-3.5 H Chemistry (test code = AG) 0.7 g/dL 1.2-2.2 L Chemistry (test code = ALP) 166 U/L 40-150 H Chemistry (test code = AST) 24 U/L 5-34 N Chemistry (test code = ALT) Less than 7 U/L 8-55 L Chemistry - Jhnirvk6305-00-10 12:50:00* Test Item Value Reference Range Interpretation Comments Chemistry - Lactate (test code = LACTSEP-T) 1.6 mmol/L 0.5-2.2 N Arwqysqfuh4608-69-45 12:34:00* Test Item Value Reference Range Interpretation Comments Hematology (test code = WBCT) 11.6 thou/uL 4.8-10.8 H Hematology (test code = RBCT) 2.93 mill/uL 4.70-6.10 L Hematology (test code = HGBT) 9.8 g/dL 14.0-18.0 L Hematology (test code = HCTT) 29.0 % 42.0-52.0 L Hematology (test code = MCV) 99.0 fl 80.0-94.0 H Hematology (test code = MCH) 33.4 pg 27.0-31.0 H Hematology (test code = MCHC) 33.7 g/dL 32.0-36.0 N Hematology (test code = RDW) 13.5 % 11.5-14.5 N Hematology (test code = PLTT) 225 thou/uL 130-400 N Hematology (test code = MPV) 8.2 fL 7.4-10.4 N Hematology (test code = %NEUT) 78.5 % 42.0-75.0 H Hematology (test code = %LYMPH) 13.1 % 21.0-51.0 L Hematology (test code = %MONO) 5.4 % 0.0-10.0 N Hematology (test code = %EOS) 2.5 % 0.0-10.0 N Hematology (test code = %BASO) 0.6 % 0.0-1.0 N Hematology (test code = NEUT#) 9.1 thou/uL 1.40-6.50 H Hematology (test code = LYMPH#) 1.5 thou/uL 1.20-3.40 N Hematology (test code = MONO#) 0.6 thou/uL 0.11-0.59 H Hematology (test code = EOS#) 0.3 thou/uL 0.0-0.7 N Hematology (test code = BASO#) 0.1 thou/uL 0.0-0.2 N Gram [id number] 11:20:00* Test Item Value Reference Range Interpretation Comments Gram Stain (test code = GS) TNP GRAM STAIN:PART OF THE ROUTINE BODY FLUID CULTURE. Comment fluid already sent to [facility] Ysgzvlr6876-93-35 11:20:00* Test Item Value Reference Range Interpretation Comments Body Fluid Culture (test code = FLUIDC) GS Body Fluid Culture (test code = FLUIDC2) NOS Body Fluid Culture (test code = FLUIDC) NO GROWTH IN 5 DAYS Body Fluid Culture (test code = FLUIDC2) GS Comment fluid already sent to udhMscxsyjy1643-83-80 01:55:00* Test Item Value Reference Range Interpretation Comments Accuchek (test code = ACU) 115 mg/dL 70-110 H Klugtmfq9739-41-32 21:06:00* Test Item Value Reference Range Interpretation Comments Accuchek (test code = ACU) 129 mg/dL 70-110 H Yurhaljn4431-43-85 17:10:00* Test Item Value Reference Range Interpretation Comments Accuchek (test code = ACU) 103 mg/dL 70-110 N Pewyfnwgx9689-82-07 08:16:00* Test Item Value Reference Range Interpretation Comments Chemistry (test code = NA-T) 132 mmol/L 136-145 L Chemistry (test code = K-T) 5.1 mmol/L 3.5-5.1 N Chemistry (test code = CL) 94 mmol/L 98-107 L Chemistry (test code = CO2) 24 mmol/L 22-29 N Chemistry (test code = ANGP) 19 mmol/L 10-20 N Chemistry (test code = BUN) 59 mg/dL 8.9-20.6 H Chemistry (test code = CREATT) 8.86 mg/dL 0.6-1.3 H Chemistry (test code = EGFRMDRD) 6 Reference Range for Estimated GFR: Greater than 90 mL/min/1.73 m2NOTE:The MDRD equation has not been validated for use with theelderly (over 70 years of age), women, patien tswith serious comorbid condition or persons with extremes ofbody size, muscle mass, or nutritional status. Chemistry (test code = GLU-T) 88 mg/dL 70-105 N Chemistry (test code = CA) 8.2 mg/dL 7.8-10.44 N Nyiwmjif2694-28-68 06:04:00* Test Item Value Reference Range Interpretation Comments Accuchek (test code = ACU) 106 mg/dL 70-110 N Ptaqckyrbt3854-86-33 05:23:00* Test Item Value Reference Range Interpretation Comments Hematology (test code = WBCT) 12.5 thou/uL 4.8-10.8 H Hematology (test code = RBCT) 3.09 mill/uL 4.70-6.10 L Hematology (test code = HGBT) 10.2 g/dL 14.0-18.0 L Hematology (test code = HCTT) 30.1 % 42.0-52.0 L Hematology (test code = MCV) 97.3 fl 80.0-94.0 H Hematology (test code = MCH) 32.9 pg 27.0-31.0 H Hematology (test code = MCHC) 33.8 g/dL 32.0-36.0 N Hematology (test code = RDW) 13.2 % 11.5-14.5 N Hematology (test code = PLTT) 169 thou/uL 130-400 N Hematology (test code = MPV) 8.3 fL 7.4-10.4 N Hematology (test code = %NEUT) 78.2 % 42.0-75.0 H Hematology (test code = %LYMPH) 11.3 % 21.0-51.0 L Hematology (test code = %MONO) 6.0 % 0.0-10.0 N Hematology (test code = %EOS) 4.3 % 0.0-10.0 N Hematology (test code = %BASO) 0.2 % 0.0-1.0 N Hematology (test code = NEUT#) 9.7 thou/uL 1.40-6.50 H Hematology (test code = LYMPH#) 1.4 thou/uL 1.20-3.40 N Hematology (test code = MONO#) 0.8 thou/uL 0.11-0.59 H Hematology (test code = EOS#) 0.5 thou/uL 0.0-0.7 N Hematology (test code = BASO#) 0.0 thou/uL 0.0-0.2 N Cwnrlrbq7354-05-57 21:50:00* Test Item Value Reference Range Interpretation Comments Accuchek (test code = ACU) 137 mg/dL 70-110 H Culture, Htfto4465-04-00 09:33:00* Test Item Value Reference Range Interpretation Comments Culture, Blood (test code = BC) Please refer to [facility] #[id number] for call information. Culture, Blood (test code = BC1) GSBC Culture, Blood (test code = BC1) GPC CL O:SAUR (test code = SAUR) Staphylococcus aureus Amoxicillin * (test code = AXD) R Amoxicillin/Clavulanic * (test code = ACD) S Azithromycin * (test code = AZID) S Cefaclor * (test code = CFD) S Cefepime * (test code = CPED) S Cefotaxime * (test code = CFTD) S Ceftazidime * (test code = CAZD) S Ceftriaxone * (test code = CTRD) S Cefuroxime (sodium) * (test code = CRMND) S Ciprofloxacin (test code = CIPGP63) <=0.5 S Clarithromycin * (test code = CLD) S Clindamycin (test code = CM) <=0.25 S Doxycycline * (test code = DOXD) S Erthromycin (test code = EGP) <=0.25 S Gentamicin (test code = GMGP) <=0.5 S Imipenem (test code = IMD) S Linezolid (test code = LNZGP) 2 S Levofloxacin (test code = LEVGP) 0.25 S Moxifloxacin (test code = MXFGP) <=0.25 S Ofloxacin * (test code = OFLGP) S Oxacillin (test code = OX1) 0.5 S Piperacillin * (test code = PIPD) R Rifampin (test code = RIFGP) <=0.5 S Tetracycline (test code = TEGP) <=1 S Trimethoprim/Sulfamethoxazole (test code = SXTGP) <=10 S Vancomycin (test code = VAGP) 1 S Culture, Blood (test code = BC1.1) How many BC are positive? A Culture, Blood (test code = BC1.1) Two of two culture sets d rawn are positive. A Culture, [id number] 09:32:00* Test Item Value Reference Range Interpretation Comments Culture, Blood (test code = BC) Refer to culture #[id number] for susceptibilities. Culture, Blood (test code = BC1) by: Nataly Guerra on 03/21/18 at 1 242. Culture, Blood (test code = BC1) GSBC Culture, Blood (test code = BC1) GPC CL O:SAUR (test code = SAUR) Staphylococcus aureus Culture, Blood (test code = BC1.1) How many BC are positive? A Culture, Blood (test code = BC1.1) Two of two culture sets d rawn are positive. A Pgonbezwjb1746-65-71 06:52:00* Test Item Value Reference Range Interpretation Comments Hematology (test code = WBCT) 14.2 thou/uL 4.8-10.8 H Hematology (test code = RBCT) 2.97 mill/uL 4.70-6.10 L Hematology (test code = HGBT) 10.1 g/dL 14.0-18.0 L Hematology (test code = HCTT) 29.0 % 42.0-52.0 L Hematology (test code = MCV) 97.4 fl 80.0-94.0 H Hematology (test code = MCH) 34.0 pg 27.0-31.0 H Hematology (test code = MCHC) 34.9 g/dL 32.0-36.0 N Hematology (test code = RDW) 13.0 % 11.5-14.5 N Hematology (test code = PLTT) 152 thou/uL 130-400 N Hematology (test code = MPV) 8.8 fL 7.4-10.4 N Hematology (test code = NE) 77 % 42-75 H Hematology (test code = BA) 2 % 5-11 L Hematology (test code = LY) 9 % 21-51 L Hematology (test code = MO) 7 % 0-10 N Hematology (test code = EO) 4 % 0-10 N Hematology (test code = MY) 1 % 0-0 H Rfaawipje7404-09-52 06:04:00* Test Item Value Reference Range Interpretation Comments Chemistry (test code = NA-T) 132 mmol/L 136-145 L Chemistry (test code = K-T) 4.4 mmol/L 3.5-5.1 N Chemistry (test code = CL) 97 mmol/L 98-107 L Chemistry (test code = CO2) 21 mmol/L 22-29 L Chemistry (test code = ANGP) 18 mmol/L 10-20 N Chemistry (test code = BUN) 42 mg/dL 8.9-20.6 H Chemistry (test code = CREATT) 6.76 mg/dL 0.6-1.3 H Chemistry (test code = EGFRMDRD) 9 Reference Range for Estimated GFR: Greater than 90 mL/min/1.73 m2NOTE:The MDRD equation has not been validated for use with theelderly (over 70 years of age), women, patien tswith serious comorbid condition or persons with extremes ofbody size, muscle mass, or nutritional status. Chemistry (test code = GLU-T) 108 mg/dL 70-105 H Chemistry (test code = CA) 8.2 mg/dL 7.8-10.44 N Qvgxxaephp2980-19-12 09:27:00* Test Item Value Reference Range Interpretation Comments Hematology (test code = WBCT) 17.5 thou/uL 4.8-10.8 H Hematology (test code = RBCT) 2.89 mill/uL 4.70-6.10 L Hematology (test code = HGBT) 9.5 g/dL 14.0-18.0 L Hematology (test code = HCTT) 27.5 % 42.0-52.0 L Hematology (test code = MCV) 94.9 fl 80.0-94.0 H Hematology (test code = MCH) 32.8 pg 27.0-31.0 H Hematology (test code = MCHC) 34.5 g/dL 32.0-36.0 N Hematology (test code = RDW) 12.8 % 11.5-14.5 N Hematology (test code = PLTT) 129 thou/uL 130-400 L Hematology (test code = MPV) 8.7 fL 7.4-10.4 N Hematology (test code = NE) 84 % 42-75 H Hematology (test code = BA) 2 % 5-11 L Hematology (test code = LY) 8 % 21-51 L Hematology (test code = MO) 6 % 0-10 N Hematology (test code = POLY) SLIGHT = 2-3 cells (100X) 0-2/hpf Hematology (test code = PCOMMENT) Appears Decreased A Dzdeghzbx0359-50-79 08:49:00* Test Item Value Reference Range Interpretation Comments Chemistry (test code = NA-T) 131 mmol/L 136-145 L Chemistry (test code = K-T) 4.0 mmol/L 3.5-5.1 N Chemistry (test code = CL) 94 mmol/L 98-107 L Chemistry (test code = CO2) 25 mmol/L 22-29 N Chemistry (test code = ANGP) 16 mmol/L 10-20 N Chemistry (test code = BUN) 65 mg/dL 8.9-20.6 H Chemistry (test code = CREATT) 9.90 mg/dL 0.6-1.3 H Chemistry (test code = EGFRMDRD) 6 Reference Range for Estimated GFR: Greater than 90 mL/min/1.73 m2NOTE:The MDRD equation has not been validated for use with theelderly (over 70 years of age), women, patien tswith serious comorbid condition or persons with extremes ofbody size, muscle mass, or nutritional status. Chemistry (test code = GLU-T) 100 mg/dL 70-105 N Chemistry (test code = CA) 7.9 mg/dL 7.8-10.44 N Hematology - Olisjd8285-81-37 08:20:00* Test Item Value Reference Range Interpretation Comments Hematology - Fluids (test code = CCDIFFBF) SYNOVIAL FLUID Hematology - Fluids (test code = CCDIFFCL) Cloudy/Turbid Clear A Hematology - Fluids (test code = CCDIFFBFCOL) Benld Hematology - Fluids (test code = CCDIFFTUBE) EDTA Hematology - Fluids (test code = CCDIFFWBCA) 262 /cumm Hematology - Fluids (test code = CCDIFFBFRBCM) 3630 /cumm Hematology - Fluids (test code = CCDIFFREFR) Note: The reference range and other method performancespecifications have not been established for this bodyfluid. The test result must be integrated into the clinicalcontext for interpretation. Comment fluid already sent to [employer] [facility]: KNEE ASPIRATEHematology - Fluids 2018-03-22 08:20:00* Test Item Value Reference Range Interpretation Comments Hematology - Fluids (test code = CCDIFFBFNE) 100 % Hematology - Fluids (test code = CCDIFFDC) WBC'S APPEAR VERY DENATURED AND DIFFICULT TO DETERMINE TYPE.THE SPECIMEN WILL BE REVIEWED BY A PATHOLOGIST ON 03/22/18.03/21/[address] [facility] [place]. LAB.[facility] Comment fluid already sent to [employer]: KNEE ASPIRATEHematology - Fluids 2018-03-22 08:20:00* Test Item Value Reference Range Interpretation Comments Hematology - Fluids (test code = PATHF) PERIPHERAL BLOOD ELEMENTS.NEGATIVE FOR CRYSTALS (POLARIZED LIGHT EXAMINATION).ELIAS BENJAMIN M.D.CPT 60156, 59031 Comment fluid already sent to [facility]: KNEE OEXNNMGEKzwdbinhz8331-45-67 05:52:00* Test Item Value Reference Range Interpretation Comments Chemistry (test code = CCTPI) RESULT DECREASING A Chemistry (test code = TROPI-T) 1.207 ng/mL < 0.028 HH Critical value! Reference Range 0.00 - 0.028 ng/mL Negative 0.029 - 0.29 ng/mL Indeterminate Greater or Equal to 0.3 ng/mL Strongly suggests DE Tdulvvjqk1490-01-84 06:34:00* Test Item Value Reference Range Interpretation Comments Chemistry (test code = NA-T) 133 mmol/L 136-145 L Chemistry (test code = K-T) 4.0 mmol/L 3.5-5.1 N Chemistry (test code = CL) 95 mmol/L 98-107 L Chemistry (test code = CO2) 24 mmol/L 22-29 N Chemistry (test code = ANGP) 18 mmol/L 10-20 N Chemistry (test code = BUN) 50 mg/dL 8.9-20.6 H Chemistry (test code = CREATT) 8.24 mg/dL 0.6-1.3 H Chemistry (test code = EGFRMDRD) 7 Reference Range for Estimated GFR: Greater than 90 mL/min/1.73 m2NOTE:The MDRD equation has not been validated for use with theelderly (over 70 years of age), women, patien tswith serious comorbid condition or persons with extremes ofbody size, muscle mass, or nutritional status. Chemistry (test code = GLU-T) 109 mg/dL 70-105 H Chemistry (test code = CA) 8.4 mg/dL 7.8-10.44 N Chemistry (test code = TBILI) 0.6 mg/dL 0.2-1.2 N Chemistry (test code = TP) 7.1 g/dL 6.0-8.3 N Chemistry (test code = ALB) 3.1 g/dL 3.5-5.0 L Chemistry (test code = GLOB) 4.0 g/dL 2.4-3.5 H Chemistry (test code = AG) 0.8 g/dL 1.2-2.2 L Chemistry (test code = ALP) 155 U/L 40-150 H Chemistry (test code = AST) 25 U/L 5-34 N Chemistry (test code = ALT) 12 U/L 8-55 N Hiqbosglb5047-74-07 06:34:00* Test Item Value Reference Range Interpretation Comments Chemistry (test code = CHOL) 79 mg/dl < 200 Desired Chemistry (test code = TRIG) 184 mg/dL Less than 150 H Chemistry (test code = HDL) 15 mg/dL >60 Neg Risk Adult HDL levels in terms of risk for Coronary Heart Disease > or Equal to 60 mg/dL Negative Risk < 40 mg/dL HIGH Risk Chemistry (test code = LDL) 27 mg/dL Levels in terms of risk for coronary heart disease: Desirable: Less than 130 mg/dL Borderline High Risk: 130 - 159 mg/dL High Risk: Greater than 160 mg/dL Chemistry (test code = CRISK) 5.3 Less than 4.5 Adult levels in terms of risk for Coronary Heart Disease: Dangerous Level: Greater than 14.3 High: 6.7 - 14.3 Average: 4.0 - 6.7 Below average: 2.7 - 4.0 Protection probable: Less than 2.7 Olmekhzqo1704-33-53 06:08:00* Test Item Value Reference Range Interpretation Comments Chemistry (test code = CCTPI) JCC @608 Chemistry (test code = TROPI-T) 1.502 ng/mL < 0.028 Critical value! Reference Range 0.00 - 0.028 ng/mL Negative 0.029 - 0.29 ng/mL Indeterminate Greater or Equal to 0.3 ng/mL Strongly suggests DE Lnwwzzapml0815-86-95 05:50:00* Test Item Value Reference Range Interpretation Comments Hematology (test code = WBCT) 13.3 thou/uL 4.8-10.8 H Hematology (test code = RBCT) 3.06 mill/uL 4.70-6.10 L Hematology (test code = HGBT) 10.3 g/dL 14.0-18.0 L Hematology (test code = HCTT) 29.6 % 42.0-52.0 L Hematology (test code = MCV) 96.9 fl 80.0-94.0 H Hematology (test code = MCH) 33.8 pg 27.0-31.0 H Hematology (test code = MCHC) 34.9 g/dL 32.0-36.0 N Hematology (test code = RDW) 12.8 % 11.5-14.5 N Hematology (test code = PLTT) 142 thou/uL 130-400 N Hematology (test code = MPV) 9.0 fL 7.4-10.4 N Hematology (test code = %NEUT) 74.8 % 42.0-75.0 N Hematology (test code = %LYMPH) 12.7 % 21.0-51.0 L Hematology (test code = %MONO) 8.9 % 0.0-10.0 N Hematology (test code = %EOS) 3.5 % 0.0-10.0 N Hematology (test code = %BASO) 0.1 % 0.0-1.0 N Hematology (test code = NEUT#) 10.0 thou/uL 1.40-6.50 H Hematology (test code = LYMPH#) 1.7 thou/uL 1.20-3.40 N Hematology (test code = MONO#) 1.2 thou/uL 0.11-0.59 H Hematology (test code = EOS#) 0.5 thou/uL 0.0-0.7 N Hematology (test code = BASO#) 0.0 thou/uL 0.0-0.2 N Resp Viral Pathogen Pnl, [id number] 19:36:00* Test Item Value Reference Range Interpretation Comments Resp Viral Pathogen Pnl, NAAT (test code = RESPVIRAL) Rhinovirus DETECTED by Verigene nucleic acid amplification Resp Viral Pathogen Pnl, NAAT (test code = RESPVIRAL1) Metapneumovirus, Parainfluenza 1,2,3 and 4, and Rhinovirus Resp Viral Pathogen Pnl, NAAT (test code = RESPVIRAL1) VRSVB A Resp Viral Pathogen Pnl, NAAT (test code = RESPVIRAL1) N A Huwujixcpuq6149-73-52 09:39:00* Test Item Value Reference Range Interpretation Comments Coagulation (test code = PT-T) 16.5 SEC 12.0-14.7 H Coagulation (test code = INR) 1.3 ATTENTION: READ CAREFULLY The recommended therapeutic ranges for oral anticoagulanttreatments are: Low Intensity: 1.5 - 2.0 Moderate Intensity: 2.0 - 3.0 High Intensity (1): 2.5 - 3.5 High Intensity (2): 3.0 - 4.0 CRITICAL: > 4.0 Coagulation (test code = PTT) 79.0 SEC 22.9-36.1 H Anticoagulant? NONEOther Comments: pt to start on heparin dripComment lab notifi qnBkoojvdbe4995-27-57 09:03:00* Test Item Value Reference Range Interpretation Comments Chemistry (test code = CCTPI) RESULT DECREASING A Chemistry (test code = TROPI-T) 2.121 ng/mL < 0.028 HH Critical value! Reference Range 0.00 - 0.028 ng/mL Negative 0.029 - 0.29 ng/mL Indeterminate Greater or Equal to 0.3 ng/mL Strongly suggests DE Prpoejypdig7816-75-90 08:41:00* Test Item Value Reference Range Interpretation Comments Coagulation (test code = PTT) 73.5 SEC 22.9-36.1 H Comment Baseline 6hrs after starting drip; then protocolAnticoagulant? IV HEPA HFDNlsebpfuhe7806-84-73 08:29:00* Test Item Value Reference Range Interpretation Comments Hematology (test code = HGBT) 10.1 g/dL 14.0-18.0 L Hematology (test code = HCTT) 28.3 % 42.0-52.0 L Hematology (test code = PLTT) 121 thou/uL 130-400 L Comment Baseline and Q48H while patient on Heparin QgnaEtjrvfybj4545-30-04 06:17:00* Test Item Value Reference Range Interpretation Comments Chemistry (test code = CCTPI) RESULT DECREASING A Chemistry (test code = TROPI-T) 2.362 ng/mL < 0.028 HH Critical value! Reference Range 0.00 - 0.028 ng/mL Negative 0.029 - 0.29 ng/mL Indeterminate Greater or Equal to 0.3 ng/mL Strongly suggests DE Dbomwieis9129-92-42 02:34:00* Test Item Value Reference Range Interpretation Comments Chemistry (test code = CCTPI) 2NO.ADG@0233 Chemistry (test code = TROPI-T) 2.574 ng/mL < 0.028 HH Critical value! Reference Range 0.00 - 0.028 ng/mL Negative 0.029 - 0.29 ng/mL Indeterminate Greater or Equal to 0.3 ng/mL Strongly suggests DE Gjfynbpbv8709-86-19 23:55:00* Test Item Value Reference Range Interpretation Comments Chemistry (test code = NA-T) 135 mmol/L 136-145 L Chemistry (test code = K-T) 3.4 mmol/L 3.5-5.1 L Chemistry (test code = CL) 97 mmol/L 98-107 L Chemistry (test code = CO2) 28 mmol/L 22-29 N Chemistry (test code = ANGP) 13 mmol/L 10-20 N Chemistry (test code = BUN) 25 mg/dL 8.9-20.6 H Chemistry (test code = CREATT) 5.25 mg/dL 0.6-1.3 H Chemistry (test code = EGFRMDRD) 12 Reference Range for Estimated GFR: Greater than 90 mL/min/1.73 m2NOTE:The MDRD equation has not been validated for use with theelderly (over 70 years of age), women, patien tswith serious comorbid condition or persons with extremes ofbody size, muscle mass, or nutritional status. Chemistry (test code = GLU-T) 108 mg/dL 70-105 H Chemistry (test code = CA) 8.6 mg/dL 7.8-10.44 N Chemistry (test code = TBILI) 0.7 mg/dL 0.2-1.2 N Chemistry (test code = TP) 6.9 g/dL 6.0-8.3 N Chemistry (test code = ALB) 3.2 g/dL 3.5-5.0 L Chemistry (test code = GLOB) 3.7 g/dL 2.4-3.5 H Chemistry (test code = AG) 0.9 g/dL 1.2-2.2 L Chemistry (test code = ALP) 120 U/L 40-150 N Chemistry (test code = AST) 25 U/L 5-34 N Chemistry (test code = ALT) 12 U/L 8-55 N Urudnnidn1907-10-18 23:54:00* Test Item Value Reference Range Interpretation Comments Chemistry (test code = CCTPI) PHA.CJC1@2374 Chemistry (test code = CKMBM-T) 1.1 ng/mL 0-6.6 N Chemistry (test code = TROPI-T) 2.329 ng/mL < 0.028 HH Critical value! Reference Range 0.00 - 0.028 ng/mL Negative 0.029 - 0.29 ng/mL Indeterminate Greater or Equal to 0.3 ng/mL Strongly suggests DE Rbnnwpxqjl3591-29-77 23:33:00* Test Item Value Reference Range Interpretation Comments Hematology (test code = WBCT) 14.0 thou/uL 4.8-10.8 H Hematology (test code = RBCT) 3.08 mill/uL 4.70-6.10 L Hematology (test code = HGBT) 10.4 g/dL 14.0-18.0 L Hematology (test code = HCTT) 29.4 % 42.0-52.0 L Hematology (test code = MCV) 95.5 fl 80.0-94.0 H Hematology (test code = MCH) 33.7 pg 27.0-31.0 H Hematology (test code = MCHC) 35.3 g/dL 32.0-36.0 N Hematology (test code = RDW) 12.8 % 11.5-14.5 N Hematology (test code = PLTT) 130 thou/uL 130-400 N Hematology (test code = MPV) 8.5 fL 7.4-10.4 N Hematology (test code = %NEUT) 77.5 % 42.0-75.0 H Hematology (test code = %LYMPH) 10.6 % 21.0-51.0 L Hematology (test code = %MONO) 8.9 % 0.0-10.0 N Hematology (test code = %EOS) 2.0 % 0.0-10.0 N Hematology (test code = %BASO) 1.0 % 0.0-1.0 N Hematology (test code = NEUT#) 10.9 thou/uL 1.40-6.50 H Hematology (test code = LYMPH#) 1.5 thou/uL 1.20-3.40 N Hematology (test code = MONO#) 1.3 thou/uL 0.11-0.59 H Hematology (test code = EOS#) 0.3 thou/uL 0.0-0.7 N Hematology (test code = BASO#) 0.1 thou/uL 0.0-0.2 N Chemistry - [id number] 12:59:00* Test Item Value Reference Range Interpretation Comments Chemistry - Lactate (test code = LACTSEP-T) 1.6 mmol/L 0.5-2.2 N [id number] 12:50:00* Test Item Value Reference Range Interpretation Comments Chemistry (test code = NA-T) 134 mmol/L 136-145 L Chemistry (test code = K-T) 4.3 mmol/L 3.5-5.1 N Chemistry (test code = CL) 95 mmol/L 98-107 L Chemistry (test code = CO2) 26 mmol/L 22-29 N Chemistry (test code = ANGP) 17 mmol/L 10-20 N Chemistry (test code = BUN) 36 mg/dL 8.9-20.6 H Chemistry (test code = CREATT) 7.41 mg/dL 0.7-1.3 H Chemistry (test code = EGFRMDRD) 8 Reference Range for Estimated GFR: Greater than 90 mL/min/1.73 m2NOTE:The MDRD equation has not been validated for use with theelderly (over 70 years of age), women, patien tswith serious comorbid condition or persons with extremes ofbody size, muscle mass, or nutritional status. Chemistry (test code = GLU-T) 172 mg/dL 70-105 H Chemistry (test code = CA) 8.9 mg/dL 7.8-10.44 N Chemistry (test code = TBILI) 0.6 mg/dL 0.2-1.2 N Chemistry (test code = TP) 7.3 g/dL 6.0-8.3 N Chemistry (test code = ALB) 3.3 g/dL 3.5-5.0 L Chemistry (test code = GLOB) 4.0 g/dL 2.4-3.5 H Chemistry (test code = AG) 0.8 g/dL 1.2-2.2 L Chemistry (test code = ALP) 100 U/L 40-150 N Chemistry (test code = AST) 26 U/L 5-34 N Chemistry (test code = ALT) 12 U/L 8-55 N Gsxbmcmkvm1008-73-30 12:39:00* Test Item Value Reference Range Interpretation Comments Hematology (test code = WBCT) 15.5 thou/uL 4.8-10.8 H Hematology (test code = RBCT) 3.47 mill/uL 4.70-6.10 L Hematology (test code = HGBT) 11.4 g/dL 14.0-18.0 L Hematology (test code = HCTT) 31.7 % 42.0-52.0 L Hematology (test code = MCV) 91.5 fl 80.0-94.0 N Hematology (test code = MCH) 33.0 pg 27.0-31.0 H Hematology (test code = MCHC) 36.0 g/dL 32.0-36.0 N Hematology (test code = RDW) 12.9 % 11.5-14.5 N Hematology (test code = PLTT) 128 thou/uL 130-400 L Hematology (test code = MPV) 8.4 fL 7.4-10.4 N Hematology (test code = %NEUT) 85.8 % 42.0-75.0 H Hematology (test code = %LYMPH) 7.5 % 21.0-51.0 L Hematology (test code = %MONO) 5.4 % 0.0-10.0 N Hematology (test code = %EOS) 0.6 % 0.0-10.0 N Hematology (test code = %BASO) 0.8 % 0.0-1.0 N Hematology (test code = NEUT#) 13.3 thou/uL 1.40-6.50 H Hematology (test code = LYMPH#) 1.2 thou/uL 1.20-3.40 N Hematology (test code = MONO#) 0.8 thou/uL 0.11-0.59 H Hematology (test code = EOS#) 0.1 thou/uL 0.0-0.7 N Hematology (test code = BASO#) 0.1 thou/uL 0.0-0.2 N ALPHA FETOPROTEIN (AFP), TUMOR [id number] 15:52:00* Test Item Value Reference Range Interpretation Comments ALPHA-FETOPROTEIN (BEAKER) (test code = 1094) 4.9 ng/mL <10.0 HEPATITIS B SURFACE [id number] 15:52:00* Test Item Value Reference Range Interpretation Comments HEPATITIS B SURFACE ANTIBODY (BEAKER) (test code = 647) 315.1 mIU/m L <8.0 H COMPREHENSIVE METABOLIC [id number] 15:36:00* Test Item Value Reference Range Interpretation Comments TOTAL PROTEIN (BEAKER) (test code = 770) 8.4 gm/dL 6.0-8.3 H ALBUMIN (BEAKER) (test code = 1145) 4.1 g/dL 3.5-5.0 ALKALINE PHOSPHATASE (BEAKER) (test code = 346) 210 U/L 40-150 H BILIRUBIN TOTAL (BEAKER) (test code = 377) 0.7 mg/dL 0.2-1.2 SODIUM (BEAKER) (test code = 381) 140 meq/L 136-145 POTASSIUM (BEAKER) (test code = 379) 4.6 meq/L 3.5-5.1 CHLORIDE (BEAKER) (test code = 382) 99 meq/L 98-107 CO2 (BEAKER) (test code = 355) 27 meq/L 22-29 BLOOD UREA NITROGEN (BEAKER) (test code = 354) 41 mg/dL 7-21 H CREATININE (BEAKER) (test code = 358) 7.00 mg/dL 0.57-1.25 H GLUCOSE RANDOM (BEAKER) (test code = 652) 86 mg/dL 70-105 CALCIUM (BEAKER) (test code = 697) 9.6 mg/dL 8.4-10.2 AST (SGOT) (BEAKER) (test code = 353) 39 U/L 5-34 H ALT (SGPT) (BEAKER) (test code = 347) 25 U/L 6-55 EGFR (BEAKER) (test code = 1092) mL/min/1.73 sq m INSUFFICIENT CLINICAL DATA TO CALCULATE ESTIMATED GFR. CT, ABDOMEN, [id number] 15:34:00Referring: Dr. [facility] scan of the abdomen. [...] adrenal glands are within normal limits. Both saxman kidneys are atrophic in appearance with several [...] Stable enlarged retroperitoneal lymph nodes. Signed: Shailesh [place] Verified Date/Time: 12/22/2017 15:34:59 Reading Location: [address] Radiology Readi Room RUBIN, [id number] 15:33:00* Test Item Value Reference Range Interpretation Comments BILIRUBIN DIRECT (BEAKER) (test code = 706) 0.2 mg/dL 0.1-0.5 PROTHROMBIN TIME/[id number] 14:56:00* Test Item Value Reference Range Interpretation Comments PROTIME (BEAKER) (test code = 759) 15.4 seconds 11.7-14.7 H INR (BEAKER) (test code = 370) 1.2 <=5.9 RECOMMENDED COUMADIN/WARFARIN INR THERAPY RANGESSTANDARD DOSE: 2.0 - 3.0 Inclu arabella: PROPHYLAXIS for venous thrombosis, systemic embolization; TREATMENT for jan ous thrombosis and/or pulmonary embolus.HIGH RISK: Target INR is 2.5-3.5 for pat ients with mechanical heart valves.CBC W/PLT COUNT & AUTO [id number] 14:47:00* Test Item Value Reference Range Interpretation Comments WHITE BLOOD CELL COUNT (BEAKER) (test code = 775) 5.2 K/ L 3.5- 10.5 RED BLOOD CELL COUNT (BEAKER) (test code = 761) 4.02 M/ L 4.63-6 .08 L HEMOGLOBIN (BEAKER) (test code = 410) 12.4 GM/DL 13.7-17.5 L HEMATOCRIT (BEAKER) (test code = 411) 37.6 % 40.1-51.0 L MEAN CORPUSCULAR VOLUME (BEAKER) (test code = 753) 93.5 fL 79. 0-92.2 H MEAN CORPUSCULAR HEMOGLOBIN (BEAKER) (test code = 751) 30.8 pg 25.7-32.2 MEAN CORPUSCULAR HEMOGLOBIN CONC (BEAKER) (test code = 752) 33.0 GM/DL 32.3-36.5 RED CELL DISTRIBUTION WIDTH (BEAKER) (test code = 412) 13.2 % 11.6-14.4 PLATELET COUNT (BEAKER) (test code = 756) 111 K/CU MM 150-450 L MEAN PLATELET VOLUME (BEAKER) (test code = 754) 11.6 fL 9.4-12 .4 NUCLEATED RED BLOOD CELLS (BEAKER) (test code = 413) 0 /100 WBC 0 -0 NEUTROPHILS RELATIVE PERCENT (BEAKER) (test code = 429) 56 % LYMPHOCYTES RELATIVE PERCENT (BEAKER) (test code = 430) 28 % MONOCYTES RELATIVE PERCENT (BEAKER) (test code = 431) 9 % EOSINOPHILS RELATIVE PERCENT (BEAKER) (test code = 432) 6 % BASOPHILS RELATIVE PERCENT (BEAKER) (test code = 437) 1 % NEUTROPHILS ABSOLUTE COUNT (BEAKER) (test code = 670) 2.96 K/ L 1.78-5.38 LYMPHOCYTES ABSOLUTE COUNT (BEAKER) (test code = 414) 1.47 K/ L 1.32-3.57 MONOCYTES ABSOLUTE COUNT (BEAKER) (test code = 415) 0.45 K/ L 0. 30-0.82 EOSINOPHILS ABSOLUTE COUNT (BEAKER) (test code = 416) 0.30 K/ L 0.04-0.54 BASOPHILS ABSOLUTE COUNT (BEAKER) (test code = 417) 0.05 K/ L 0. 01-0.08 IMMATURE GRANULOCYTES-RELATIVE PERCENT (BEAKER) (test code = 2801) 0 % 0-1 Ihqqbuxr9010-21-30 09:00:00* Test Item Value Reference Range Interpretation Comments Accuchek (test code = ACU) 98 mg/dL 70-110 N Jughxtgy8848-36-42 08:23:00* Test Item Value Reference Range Interpretation Comments Accuchek (test code = ACU) 85 mg/dL 70-110 N Kubfvcgd7690-61-92 18:32:00* Test Item Value Reference Range Interpretation Comments Accuchek (test code = ACU) 170 mg/dL 70-110 H Dagojxgh8669-71-76 09:46:00* Test Item Value Reference Range Interpretation Comments Accuchek (test code = ACU) 94 mg/dL 70-110 N Mpwsfgbk6268-85-45 09:10:00* Test Item Value Reference Range Interpretation Comments Accuchek (test code = ACU) 115 mg/dL 70-110 H Wyxkcczx6859-35-16 08:06:00* Test Item Value Reference Range Interpretation Comments Accuchek (test code = ACU) 104 mg/dL 70-110 N Ejdmznvb6182-08-23 08:04:00* Test Item Value Reference Range Interpretation Comments Accuchek (test code = ACU) 129 mg/dL 70-110 H Zmjyxewq3804-81-64 07:08:00* Test Item Value Reference Range Interpretation Comments Accuchek (test code = ACU) 152 mg/dL 70-110 H Ykxelzhv1894-78-02 08:58:00* Test Item Value Reference Range Interpretation Comments Accuchek (test code = ACU) 101 mg/dL 70-110 N Fnrcqree3599-87-19 14:29:00* Test Item Value Reference Range Interpretation Comments Accuchek (test code = ACU) 115 mg/dL 70-110 H Rxisdjzj0018-50-82 03:59:00* Test Item Value Reference Range Interpretation Comments Accuchek (test code = ACU) 89 mg/dL 70-110 N Ojacqxag7502-11-04 02:31:00* Test Item Value Reference Range Interpretation Comments Accuchek (test code = ACU) 104 mg/dL 70-110 N Wqsugpmh4383-24-94 02:31:00* Test Item Value Reference Range Interpretation Comments Accuchek (test code = ACU) 114 mg/dL 70-110 H Aghitzkr4598-56-73 02:31:00* Test Item Value Reference Range Interpretation Comments Accuchek (test code = ACU) 169 mg/dL 70-110 H Chemistry - Lysykheg8730-26-74 15:31:00* Test Item Value Reference Range Interpretation Comments Chemistry - Specials (test code = NARDA) 642.71 ng/mL 22-322 H Uwdiwzlbyd5413-50-82 15:21:00* Test Item Value Reference Range Interpretation Comments Hematology (test code = WBCT) 6.2 thou/uL 4.8-10.8 N Hematology (test code = RBCT) 2.14 mill/uL 4.70-6.10 L Hematology (test code = HGBT) 7.8 g/dL 14.0-18.0 L Hematology (test code = HCTT) 21.7 % 42.0-52.0 L Hematology (test code = MCV) 102.0 fl 80.0-94.0 H Hematology (test code = MCH) 36.7 pg 27.0-31.0 H Hematology (test code = MCHC) 36.1 g/dL 32.0-36.0 H Hematology (test code = RDW) 17.6 % 11.5-14.5 H Hematology (test code = PLTT) 145 thou/uL 130-400 N Hematology (test code = MPV) 7.3 fL 7.4-10.4 L Hematology (test code = %NEUT) 62.6 % 42.0-75.0 N Hematology (test code = %LYMPH) 25.5 % 21.0-51.0 N Hematology (test code = %MONO) 6.2 % 0.0-10.0 N Hematology (test code = %EOS) 4.0 % 0.0-10.0 N Hematology (test code = %BASO) 1.6 % 0.0-1.0 H Hematology (test code = NEUT#) 3.9 thou/uL 1.40-6.50 N Hematology (test code = LYMPH#) 1.6 thou/uL 1.20-3.40 N Hematology (test code = MONO#) 0.4 thou/uL 0.11-0.59 N Hematology (test code = EOS#) 0.2 thou/uL 0.0-0.7 N Hematology (test code = BASO#) 0.1 thou/uL 0.0-0.2 N Hematology (test code = MA) SLIGHT = 6-15 cells (100X) 0-5/hpf Hematology (test code = POLY) SLIGHT = 2-3 cells (100X) 0-2/hpf Ikwifpqmk0822-89-54 15:11:00* Test Item Value Reference Range Interpretation Comments Chemistry (test code = IRON) 75 ug/dL 65-175 N Hhbzocida0572-07-89 15:11:00* Test Item Value Reference Range Interpretation Comments Chemistry (test code = TIBC) 229 mcg/dL 261-462 L Vgqehyuzam1410-67-53 14:59:00* Test Item Value Reference Range Interpretation Comments Hematology (test code = RETICT) 9.6 % 0.5-1.5 H Hematology (test code = IRF) 0.425 Ratio 0.163-0.362 H Bflbqawo4910-12-27 21:02:00* Test Item Value Reference Range Interpretation Comments Accuchek (test code = ACU) 199 mg/dL 70-110 H Irmhlpex7185-92-46 21:02:00* Test Item Value Reference Range Interpretation Comments Accuchek (test code = ACU) 107 mg/dL 70-110 N Lqzieesr1961-92-38 21:02:00* Test Item Value Reference Range Interpretation Comments Accuchek (test code = ACU) 151 mg/dL 70-110 H Jdzecmuy7178-98-20 21:02:00* Test Item Value Reference Range Interpretation Comments Accuchek (test code = ACU) 164 mg/dL 70-110 H Lfcymodo6800-27-11 06:05:00* Test Item Value Reference Range Interpretation Comments Accuchek (test code = ACU) 109 mg/dL 70-110 N Wjqcvukq5093-78-43 03:32:00* Test Item Value Reference Range Interpretation Comments Accuchek (test code = ACU) 166 mg/dL 70-110 H Thkdujys9138-85-09 20:10:00* Test Item Value Reference Range Interpretation Comments Accuchek (test code = ACU) 157 mg/dL 70-110 H Yewltcht5293-32-96 20:10:00* Test Item Value Reference Range Interpretation Comments Accuchek (test code = ACU) 103 mg/dL 70-110 N Dzpcyejikb2266-80-59 09:26:00* Test Item Value Reference Range Interpretation Comments Hematology (test code = WBCT) 6.2 thou/uL 4.8-10.8 N Hematology (test code = RBCT) 2.14 mill/uL 4.70-6.10 L Hematology (test code = HGBT) 7.5 g/dL 14.0-18.0 L Hematology (test code = HCTT) 21.1 % 42.0-52.0 L Hematology (test code = MCV) 98.5 fl 80.0-94.0 H Hematology (test code = MCH) 35.1 pg 27.0-31.0 H Hematology (test code = MCHC) 35.7 g/dL 32.0-36.0 N Hematology (test code = RDW) 15.0 % 11.5-14.5 H Hematology (test code = PLTT) 169 thou/uL 130-400 N Hematology (test code = MPV) 6.4 fL 7.4-10.4 L Hematology (test code = %NEUT) 59.8 % 42.0-75.0 N Hematology (test code = %LYMPH) 28.0 % 21.0-51.0 N Hematology (test code = %MONO) 5.5 % 0.0-10.0 N Hematology (test code = %EOS) 5.2 % 0.0-10.0 N Hematology (test code = %BASO) 1.6 % 0.0-1.0 H Hematology (test code = NEUT#) 3.7 thou/uL 1.40-6.50 N Hematology (test code = LYMPH#) 1.7 thou/uL 1.20-3.40 N Hematology (test code = MONO#) 0.3 thou/uL 0.11-0.59 N Hematology (test code = EOS#) 0.3 thou/uL 0.0-0.7 N Hematology (test code = BASO#) 0.1 thou/uL 0.0-0.2 N Hematology (test code = AN) SLIGHT = 6-15 cells (100X) 0-5/hpf Hematology (test code = MA) SLIGHT = 6-15 cells (100X) 0-5/hpf Hematology (test code = PCOMMENT) Appears Adequate Cmznfffve0091-16-33 05:57:00* Test Item Value Reference Range Interpretation Comments Chemistry (test code = NA-T) 138 mmol/L 136-145 N Chemistry (test code = K-T) 4.5 mmol/L 3.5-5.1 N Chemistry (test code = CL) 96 mmol/L 98-107 L Chemistry (test code = CO2) 28 mmol/L 22-29 N Chemistry (test code = ANGP) 19 mmol/L 10-20 N Chemistry (test code = BUN) 45 mg/dL 8.9-20.6 H Chemistry (test code = CREATT) 9.12 mg/dL 0.7-1.3 H Chemistry (test code = EGFRMDRD) 6 Reference Range for Estimated GFR: Greater than 90 mL/min/1.73 m2NOTE:The MDRD equation has not been validated for use with theelderly (over 70 years of age), women, patien tswith serious comorbid condition or persons with extremes ofbody size, muscle mass, or nutritional status. Chemistry (test code = GLU-T) 103 mg/dL 70-105 N Chemistry (test code = CA) 8.3 mg/dL 7.8-10.44 N Pzpvgxvu4508-42-62 22:34:00* Test Item Value Reference Range Interpretation Comments Accuchek (test code = ACU) 137 mg/dL 70-110 H Zdyhobdk6639-81-34 17:31:00* Test Item Value Reference Range Interpretation Comments Accuchek (test code = ACU) 141 mg/dL 70-110 H Buymrlya4932-23-16 12:41:00* Test Item Value Reference Range Interpretation Comments Accuchek (test code = ACU) 136 mg/dL 70-110 H Elliqbpx7062-39-47 06:15:00* Test Item Value Reference Range Interpretation Comments Accuchek (test code = ACU) 130 mg/dL 70-110 H Ahgvsfsw3532-63-35 00:15:00* Test Item Value Reference Range Interpretation Comments Accuchek (test code = ACU) 135 mg/dL 70-110 H Ywgjjlcf6148-56-16 23:56:00* Test Item Value Reference Range Interpretation Comments Accuchek (test code = ACU) 178 mg/dL 70-110 H Hmknvlec5311-83-68 18:43:00* Test Item Value Reference Range Interpretation Comments Accuchek (test code = ACU) 171 mg/dL 70-110 H Culture, Innug6421-27-12 14:04:00* Test Item Value Reference Range Interpretation Comments Culture, Urine (test code = URC) NG36 Nyjgmsql6017-97-89 06:36:00* Test Item Value Reference Range Interpretation Comments Accuchek (test code = ACU) 110 mg/dL 70-110 N Cnjrnqrs6066-76-32 20:10:00* Test Item Value Reference Range Interpretation Comments Accuchek (test code = ACU) 152 mg/dL 70-110 H Qhngykyl3105-75-74 06:49:00* Test Item Value Reference Range Interpretation Comments Accuchek (test code = ACU) 208 mg/dL 70-110 H Dysomnrs7811-99-29 17:32:00* Test Item Value Reference Range Interpretation Comments Accuchek (test code = ACU) 160 mg/dL 70-110 H Culture, Fskfh8793-21-61 17:01:00* Test Item Value Reference Range Interpretation Comments Culture, Blood (test code = BC) NG5 Comment Obtain cultures prior to antibiotic pizhytfgpvgzwdRstwdlxm7591-33-17 11:44:00* Test Item Value Reference Range Interpretation Comments Accuchek (test code = ACU) 167 mg/dL 70-110 H Fdtidgue9480-96-67 04:44:00* Test Item Value Reference Range Interpretation Comments Accuchek (test code = ACU) 134 mg/dL 70-110 H Grvufwiq6010-37-25 20:54:00* Test Item Value Reference Range Interpretation Comments Accuchek (test code = ACU) 219 mg/dL 70-110 H Stool Btoxxys4140-90-81 15:28:00* Test Item Value Reference Range Interpretation Comments Stool Culture (test code = STC) NF Stool Culture (test code = STC1) MO Y Nzaqyzwli6972-94-25 07:38:00* Test Item Value Reference Range Interpretation Comments Chemistry (test code = VANCR-T) 14.4 ug/mL See Comment There are NO documented Reference Ranges for RANDOMVANCOMYCIN Levels. Mfwmamrf1443-42-11 21:01:00* Test Item Value Reference Range Interpretation Comments Accuchek (test code = ACU) 163 mg/dL 70-110 H Bkqlogty7605-93-16 21:01:00* Test Item Value Reference Range Interpretation Comments Accuchek (test code = ACU) 171 mg/dL 70-110 H Bacterial Iojbomy9222-13-24 10:43:00* Test Item Value Reference Range Interpretation Comments Bacterial Culture (test code = BACTC) No penicillin, c ephalosporin, or vancomycin resistance has Bacterial Culture (test code = BACTC1) smear only. Bacterial Culture (test code = BACTC1) NF Bacterial Culture (test code = BACTC1) MA MSF O:SAUR (test code = SAUR) Staphylococcus aureus Amoxicillin * (test code = AXD) R Amoxicillin/Clavulanic * (test code = ACD) S Azithromycin * (test code = AZID) R Cefaclor * (test code = CFD) S Cefepime * (test code = CPED) S Cefotaxime * (test code = CFTD) S Ceftazidime * (test code = CAZD) S Ceftriaxone * (test code = CTRD) S Cefuroxime (sodium) * (test code = CRMND) S Ciprofloxacin (test code = CIPGP63) <=0.5 S Clarithromycin * (test code = CLD) R Clindamycin (test code = CM) <=0.25 S Doxycycline * (test code = DOXD) S Erthromycin (test code = EGP) >=8 R Gentamicin (test code = GMGP) <=0.5 S Imipenem (test code = IMD) S Linezolid (test code = LNZGP) 2 S Levofloxacin (test code = LEVGP) <=0.12 S Moxifloxacin (test code = MXFGP) <=0.25 S Ofloxacin * (test code = OFLGP) S Oxacillin (test code = OX1) 0.5 S Piperacillin * (test code = PIPD) R Rifampin (test code = RIFGP) <=0.5 S Tetracycline (test code = TEGP) <=1 S Trimethoprim/Sulfamethoxazole (test code = SXTGP) <=10 S Vancomycin (test code = VAGP) <=0.5 S Bacterial Culture (test code = BACTC1.1) QUANTITATION: Bacterial Culture (test code = BACTC1.1) Moderate O:STAGA (test code = STAGA) Streptococcus agalactiae Gp. B Bacterial Culture (test code = BACTC1.2) QUANTITATION: Bacterial Culture (test code = BACTC1.2) Moderate CPT Modifier: 59Culture, Uklwb9021-59-41 08:40:00* Test Item Value Reference Range Interpretation Comments Culture, Blood (test code = BC) Please refer to carlos e #[id number] for call information. Culture, Blood (test code = BC1) Please refer to cultu re # [id number] for susceptibilities. Culture, Blood (test code = BC1) GSBC Culture, Blood (test code = BC1) GPC CL O:SAUR (test code = SAUR) Staphylococcus aureus Amoxicillin * (test code = AXD) R Amoxicillin/Clavulanic * (test code = ACD) S Azithromycin * (test code = AZID) R Cefaclor * (test code = CFD) S Cefepime * (test code = CPED) S Cefotaxime * (test code = CFTD) S Ceftazidime * (test code = CAZD) S Ceftriaxone * (test code = CTRD) S Cefuroxime (sodium) * (test code = CRMND) S Ciprofloxacin (test code = CIPGP63) <=0.5 S Clarithromycin * (test code = CLD) R Clindamycin (test code = CM) <=0.25 S Doxycycline * (test code = DOXD) S Erthromycin (test code = EGP) >=8 R Gentamicin (test code = GMGP) <=0.5 S Imipenem (test code = IMD) S Linezolid (test code = LNZGP) 1 S Levofloxacin (test code = LEVGP) <=0.12 S Moxifloxacin (test code = MXFGP) <=0.25 S Ofloxacin * (test code = OFLGP) S Oxacillin (test code = OX1) 0.5 S Piperacillin * (test code = PIPD) R Rifampin (test code = RIFGP) <=0.5 S Tetracycline (test code = TEGP) <=1 S Trimethoprim/Sulfamethoxazole (test code = SXTGP) <=10 S Vancomycin (test code = VAGP) <=0.5 S Culture, Blood (test code = BC1.1) How many BC are positive? A Culture, Blood (test code = BC1.1) Two of two culture sets d rawn are positive. A O:SAUR (test code = SAUR) Staphylococcus aureus ONLY ONE SAMPLE COLLECTED DUE TO LIMITED ACCESS. LWChemistry - Specials 2017-10-22 07:02:00* Test Item Value Reference Range Interpretation Comments Chemistry - Specials (test code = BSAG) Non-Reactive S/CO NonReac tive Oazjkofi1699-23-67 05:51:00* Test Item Value Reference Range Interpretation Comments Accuchek (test code = ACU) 146 mg/dL 70-110 H Vqmtiwsqs7550-46-88 05:01:00* Test Item Value Reference Range Interpretation Comments Chemistry (test code = NA-T) 137 mmol/L 136-145 N Chemistry (test code = K-T) 3.7 mmol/L 3.5-5.1 N Chemistry (test code = CL) 96 mmol/L 98-107 L Chemistry (test code = CO2) 32 mmol/L 22-29 H Chemistry (test code = ANGP) 13 mmol/L 10-20 N Chemistry (test code = BUN) 28 mg/dL 8.9-20.6 H Chemistry (test code = CREATT) 6.22 mg/dL 0.6-1.3 H Chemistry (test code = EGFRMDRD) 10 Reference Range for Estimated GFR: Greater than 90 mL/min/1.73 m2NOTE:The MDRD equation has not been validated for use with theelderly (over 70 years of age), women, patien tswith serious comorbid condition or persons with extremes ofbody size, muscle mass, or nutritional status. Chemistry (test code = GLU-T) 166 mg/dL 70-105 H Chemistry (test code = CA) 8.3 mg/dL 7.8-10.44 N Mezqyuveuj5436-39-89 04:46:00* Test Item Value Reference Range Interpretation Comments Hematology (test code = WBCT) 6.8 thou/uL 4.8-10.8 N Hematology (test code = RBCT) 2.14 mill/uL 4.70-6.10 L Hematology (test code = HGBT) 7.6 g/dL 14.0-18.0 L Hematology (test code = HCTT) 21.1 % 42.0-52.0 L Hematology (test code = MCV) 98.4 fl 80.0-94.0 H Hematology (test code = MCH) 35.3 pg 27.0-31.0 H Hematology (test code = MCHC) 35.9 g/dL 32.0-36.0 N Hematology (test code = RDW) 12.3 % 11.5-14.5 N Hematology (test code = PLTT) 154 thou/uL 130-400 N Hematology (test code = MPV) 7.8 fL 7.4-10.4 N Hematology (test code = %NEUT) 57.3 % 42.0-75.0 N Hematology (test code = %LYMPH) 28.2 % 21.0-51.0 N Hematology (test code = %MONO) 8.3 % 0.0-10.0 N Hematology (test code = %EOS) 5.7 % 0.0-10.0 N Hematology (test code = %BASO) 0.6 % 0.0-1.0 N Hematology (test code = NEUT#) 3.9 thou/uL 1.40-6.50 N Hematology (test code = LYMPH#) 1.9 thou/uL 1.20-3.40 N Hematology (test code = MONO#) 0.6 thou/uL 0.11-0.59 H Hematology (test code = EOS#) 0.4 thou/uL 0.0-0.7 N Hematology (test code = BASO#) 0.0 thou/uL 0.0-0.2 N Oduzqmot3509-22-86 21:01:00* Test Item Value Reference Range Interpretation Comments Mick (test code = ACU) 185 mg/dL 70-110 H [id number] SURGICAL PATHOLOGY, LEVEL [id number] 16:44:[address] [address] Laboratory Fax: Printed: 10/21/17 1645 [facility] DAEMPathology Page: 1 Patient: MARCO A ROBLES Birthdate: Age/Sex: 47/M Spec#: [id number]: Manuel Barragan MD Specimen Date: 10/19 Received Date: 10/20/17 Specim en: AMPUTATION, TOE CLINICAL SAMANTHA GNOSIS infected foot PATHOLOGIC DIAGN OSIS Toe, left second, 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 - Negative for osteomyelitis. - Proximal margin of amputation viab le. Pathologist:Shon March Entered by:10/21/17 - 1637 LAB.YGP PRO CEDURES: [id number], [id number] GROSS DESCRIPTION A. AMPUTATION, TOE SECOND TOE [...] s urrounding skin slippage Patient: MARCO A ROBLES Re10/19/17Loc: T4-A MR#: [id number] C ONTINUED ON NEXT PAGE Dis: Sta: ADM IN [address] [address] Laboratory Printed: 10/21/17 Ki Bernabe [facility] Page: 2 Patie nt: MARCO A ROBLES [id number] (Continued) GROSS DESCRIPTION (Continu ed) and a pebble-like appearance. The lesion measures 2.8 x 1.9 cm in greatest dimensions. Thelesion approaches the resection margin and involves the resectio n margin in some areas. Thelesion has a friable appearance. The deep bone appe ars hard, and a labor representative sectionis submitted. Section code:A1-2 - represen tative sections of ulcer with inked black surgical marginA3 - labor representative sec tion of bone Cassette A3 is placed in decal solution for decalcification. Dictat ed by: Ashley Mitchell Entered by: 10/20/17 - 1720 LAB.YGP MICROSCOPIC DESCRIPTION A microscopic examination was performed to arrive at the diagnostic conclusion reported. Signed ( Electronically Signed) Shon 10/21/17 ------ ------ Patient: MARCO A ROBLES ReLoc: T4-A MR#: [id number] END OF REPORT Dis: Sta: ADM IN [id number] 12:21:00* Test Item Value Reference Range Interpretation Comments Accuchek (test code = ACU) 191 mg/dL 70-110 H Clostridium difficile [id number] 11:12:00* Test Item Value Reference Range Interpretation Comments Clostridium difficile Assay (test code = CDIFF) Perfor stephanie of specimens from PEDIATRIC patients has NOT Clostridium difficile Assay (test code = CDIFF1) been evaluated. Clostridium difficile Assay (test code = CDIFF1) CDIFF1 A Clostridium difficile Assay (test code = CDIFF1) APTN A Toxigenic C. difficile by [id number] 11:12:00* Test Item Value Reference Range Interpretation Comments Toxigenic C. difficile by PCR (test code = CDIFFPCR) CDIFFPCR Toxigenic C. difficile by PCR (test code = CDIFFPCR2) N Campylobacter Antigen by [id number] 08:34:00* Test Item Value Reference Range Interpretation Comments Campylobacter Antigen by IA (test code = CAMPY) The pid Campylobacter Antigen test is a qualitative Campylobacter Antigen by IA (test code = CAMPY1) diagnostic procedu res. Campylobacter Antigen by IA (test code = CAMPY1) CAMPPAT Campylobacter Antigen by IA (test code = CAMPY1) N EHEC-E coli Shiga [id number] 08:34:00* Test Item Value Reference Range Interpretation Comments EHEC-E coli Shiga Toxins (test code = EHEC) TOX 1 EHEC-E coli Shiga Toxins (test code = EHEC2) N EHEC-E coli Shiga Toxins (test code = EHEC2) TOX 2 [id number] 06:51:00* Test Item Value Reference Range Interpretation Comments Chemistry (test code = VANCR-T) 27.1 ug/mL See Comment There are NO documented Reference Ranges for RANDOMVANCOMYCIN Levels. [id number] 05:47:00* Test Item Value Reference Range Interpretation Comments Chemistry (test code = NA-T) 134 mmol/L 136-145 L Chemistry (test code = K-T) 5.1 mmol/L 3.5-5.1 N Chemistry (test code = CL) 93 mmol/L 98-107 L Chemistry (test code = CO2) 28 mmol/L 22-29 N Chemistry (test code = ANGP) 18 mmol/L 10-20 N Chemistry (test code = BUN) 54 mg/dL 8.9-20.6 H Chemistry (test code = CREATT) 9.87 mg/dL 0.6-1.3 H Chemistry (test code = EGFRMDRD) 6 Reference Range for Estimated GFR: Greater than 90 mL/min/1.73 m2NOTE:The MDRD equation has not been validated for use with theelderly (over 70 years of age), women, patien tswith serious comorbid condition or persons with extremes ofbody size, muscle mass, or nutritional status. Chemistry (test code = GLU-T) 147 mg/dL 70-105 H Chemistry (test code = CA) 8.0 mg/dL 7.8-10.44 N [id number] 05:34:00* Test Item Value Reference Range Interpretation Comments Hematology (test code = WBCT) 6.5 thou/uL 4.8-10.8 N Hematology (test code = RBCT) 2.31 mill/uL 4.70-6.10 L Hematology (test code = HGBT) 8.1 g/dL 14.0-18.0 L Hematology (test code = HCTT) 23.5 % 42.0-52.0 L Hematology (test code = MCV) 101.0 fl 80.0-94.0 H Hematology (test code = MCH) 35.1 pg 27.0-31.0 H Hematology (test code = MCHC) 34.6 g/dL 32.0-36.0 N Hematology (test code = RDW) 12.5 % 11.5-14.5 N Hematology (test code = PLTT) 157 thou/uL 130-400 N Hematology (test code = MPV) 7.6 fL 7.4-10.4 N Hematology (test code = %NEUT) 70.8 % 42.0-75.0 N Hematology (test code = %LYMPH) 18.8 % 21.0-51.0 L Hematology (test code = %MONO) 9.6 % 0.0-10.0 N Hematology (test code = %EOS) 0.6 % 0.0-10.0 N Hematology (test code = %BASO) 0.2 % 0.0-1.0 N Hematology (test code = NEUT#) 4.6 thou/uL 1.40-6.50 N Hematology (test code = LYMPH#) 1.2 thou/uL 1.20-3.40 N Hematology (test code = MONO#) 0.6 thou/uL 0.11-0.59 H Hematology (test code = EOS#) 0.0 thou/uL 0.0-0.7 N Hematology (test code = BASO#) 0.0 thou/uL 0.0-0.2 N [id number] 11:56:00* Test Item Value Reference Range Interpretation Comments Accuchek (test code = ACU) 224 mg/dL 70-110 H Kqchwwsfpf0236-50-86 08:19:00* Test Item Value Reference Range Interpretation Comments Hematology (test code = SED) 17 mm/hr Less than 15 Mnvbwkaae3646-95-76 08:07:00* Test Item Value Reference Range Interpretation Comments Chemistry (test code = NA-T) 137 mmol/L 136-145 N Chemistry (test code = K-T) 4.2 mmol/L 3.5-5.1 N Chemistry (test code = CL) 98 mmol/L 98-107 N Chemistry (test code = CO2) 25 mmol/L 22-29 N Chemistry (test code = ANGP) 18 mmol/L 10-20 N Chemistry (test code = BUN) 35 mg/dL 8.9-20.6 H Chemistry (test code = CREATT) 7.80 mg/dL 0.6-1.3 H Chemistry (test code = EGFRMDRD) 7 Reference Range for Estimated GFR: Greater than 90 mL/min/1.73 m2NOTE:The MDRD equation has not been validated for use with theelderly (over 70 years of age), women, patien tswith serious comorbid condition or persons with extremes ofbody size, muscle mass, or nutritional status. Chemistry (test code = GLU-T) 110 mg/dL 70-105 H Chemistry (test code = CA) 8.2 mg/dL 7.8-10.44 N Chemistry (test code = TBILI) 0.6 mg/dL 0.2-1.2 N Chemistry (test code = TP) 6.7 g/dL 6.0-8.3 N Chemistry (test code = ALB) 3.2 g/dL 3.5-5.0 L Chemistry (test code = GLOB) 3.5 g/dL 2.4-3.5 N Chemistry (test code = AG) 0.9 g/dL 1.2-2.2 L Chemistry (test code = ALP) 98 U/L 40-150 N Chemistry (test code = AST) 18 U/L 5-34 N Chemistry (test code = ALT) 10 U/L 8-55 N What test does the doctor want? C-REACTIVE PROTEIN (CRP)Cgdjhiweh4278-02-06 08:07:00* Test Item Value Reference Range Interpretation Comments Chemistry (test code = CRP) 21.82 mg/dL = or < 0.5 H What test does the doctor want? C-REACTIVE PROTEIN (CRP)Xadfilohdq9508-07-74 07:38:00* Test Item Value Reference Range Interpretation Comments Hematology (test code = WBCT) 8.3 thou/uL 4.8-10.8 N Hematology (test code = RBCT) 2.36 mill/uL 4.70-6.10 L Hematology (test code = HGBT) 8.1 g/dL 14.0-18.0 L Hematology (test code = HCTT) 23.5 % 42.0-52.0 L Hematology (test code = MCV) 99.8 fl 80.0-94.0 H Hematology (test code = MCH) 34.2 pg 27.0-31.0 H Hematology (test code = MCHC) 34.3 g/dL 32.0-36.0 N Hematology (test code = RDW) 12.6 % 11.5-14.5 N Hematology (test code = PLTT) 157 thou/uL 130-400 N Hematology (test code = MPV) 7.4 fL 7.4-10.4 N Hematology (test code = %NEUT) 72.8 % 42.0-75.0 N Hematology (test code = %LYMPH) 14.7 % 21.0-51.0 L Hematology (test code = %MONO) 8.3 % 0.0-10.0 N Hematology (test code = %EOS) 3.6 % 0.0-10.0 N Hematology (test code = %BASO) 0.5 % 0.0-1.0 N Hematology (test code = NEUT#) 6.0 thou/uL 1.40-6.50 N Hematology (test code = LYMPH#) 1.2 thou/uL 1.20-3.40 N Hematology (test code = MONO#) 0.7 thou/uL 0.11-0.59 H Hematology (test code = EOS#) 0.3 thou/uL 0.0-0.7 N Hematology (test code = BASO#) 0.0 thou/uL 0.0-0.2 N [id number] 19:29:00* Test Item Value Reference Range Interpretation Comments Accuchek (test code = ACU) 99 mg/dL 70-110 N Chemistry - Toisjcy5996-63-54 16:48:00* Test Item Value Reference Range Interpretation Comments Chemistry - Lactate (test code = LACTSEP-T) 1.1 mmol/L 0.5-2.2 N Comment Prior to 4th doseChemistry - Qkydpee5078-99-38 10:00:00* Test Item Value Reference Range Interpretation Comments Chemistry - Lactate (test code = LACTSEP-T) 1.1 mmol/L 0.5-2.2 N Influenza A B Ag Zkudnp4826-49-70 09:33:00* Test Item Value Reference Range Interpretation Comments Influenza A B Ag Screen (test code = FLU) The rapid Fl u A B test can distinguish between influenza A Influenza A B Ag Screen (test code = FLU1) follow up c onfirmatory testing is warranted. Influenza A B Ag Screen (test code = FLU1) FLUB Influenza A B Ag Screen (test code = FLU1) N [id number] 08:57:00* Test Item Value Reference Range Interpretation Comments Hematology (test code = WBCT) 11.0 thou/uL 4.8-10.8 H Hematology (test code = RBCT) 2.98 mill/uL 4.70-6.10 L Hematology (test code = HGBT) 10.5 g/dL 14.0-18.0 L Hematology (test code = HCTT) 28.8 % 42.0-52.0 L Hematology (test code = MCV) 96.7 fl 80.0-94.0 H Hematology (test code = MCH) 35.1 pg 27.0-31.0 H Hematology (test code = MCHC) 36.3 g/dL 32.0-36.0 H Hematology (test code = RDW) 12.0 % 11.5-14.5 N Hematology (test code = PLTT) 149 thou/uL 130-400 N Hematology (test code = MPV) 6.8 fL 7.4-10.4 L Hematology (test code = %NEUT) 86.4 % 42.0-75.0 H Hematology (test code = %LYMPH) 6.4 % 21.0-51.0 L Hematology (test code = %MONO) 3.3 % 0.0-10.0 N Hematology (test code = %EOS) 3.1 % 0.0-10.0 N Hematology (test code = %BASO) 0.8 % 0.0-1.0 N Hematology (test code = NEUT#) 9.5 thou/uL 1.40-6.50 H Hematology (test code = LYMPH#) 0.7 thou/uL 1.20-3.40 L Hematology (test code = MONO#) 0.4 thou/uL 0.11-0.59 N Hematology (test code = EOS#) 0.3 thou/uL 0.0-0.7 N Hematology (test code = BASO#) 0.1 thou/uL 0.0-0.2 N Bmglasqbp6273-39-03 08:52:00* Test Item Value Reference Range Interpretation Comments Chemistry (test code = NA-T) 137 mmol/L 136-145 N Chemistry (test code = K-T) 5.4 mmol/L 3.5-5.1 H Chemistry (test code = CL) 96 mmol/L 98-107 L Chemistry (test code = CO2) 23 mmol/L 22-29 N Chemistry (test code = ANGP) 23 mmol/L 10-20 H Chemistry (test code = BUN) 61 mg/dL 8.9-20.6 H Chemistry (test code = CREATT) 11.92 mg/dL 0.7-1.3 H Chemistry (test code = EGFRMDRD) 5 Reference Range for Estimated GFR: Greater than 90 mL/min/1.73 m2NOTE:The MDRD equation has not been validated for use with theelderly (over 70 years of age), women, patien tswith serious comorbid condition or persons with extremes ofbody size, muscle mass, or nutritional status. Chemistry (test code = GLU-T) 123 mg/dL 70-105 H Chemistry (test code = CA) 8.4 mg/dL 7.8-10.44 N Chemistry (test code = TBILI) 1.1 mg/dL 0.2-1.2 N Chemistry (test code = TP) 8.1 g/dL 6.0-8.3 N Chemistry (test code = ALB) 3.8 g/dL 3.5-5.0 N Chemistry (test code = GLOB) 4.3 g/dL 2.4-3.5 H Chemistry (test code = AG) 0.9 g/dL 1.2-2.2 L Chemistry (test code = ALP) 137 U/L 40-150 N Chemistry (test code = AST) 17 U/L 5-34 N Chemistry (test code = ALT) 12 U/L 8-55 N Chemistry - Tubwpyvj1544-02-08 18:58:00* Test Item Value Reference Range Interpretation Comments Chemistry - Specials (test code = THBSAG) Non-Reactive S/CO NonReac tive [id number] 17:28:00* Test Item Value Reference Range Interpretation Comments Accuchek (test code = ACU) 290 mg/dL 70-110 H Yfwrmggh7156-28-68 12:32:00* Test Item Value Reference Range Interpretation Comments Accuchek (test code = ACU) 100 mg/dL 70-110 N Frnlpnodt7072-36-07 06:04:00* Test Item Value Reference Range Interpretation Comments Chemistry (test code = NA-T) 137 mmol/L 136-145 N Chemistry (test code = K-T) 4.8 mmol/L 3.5-5.1 N Chemistry (test code = CL) 96 mmol/L 98-107 L Chemistry (test code = CO2) 30 mmol/L 22-29 H Chemistry (test code = ANGP) 16 mmol/L 10-20 N Chemistry (test code = BUN) 34 mg/dL 8.9-20.6 H Chemistry (test code = CREATT) 8.14 mg/dL 0.6-1.3 H Chemistry (test code = EGFRMDRD) 7 Reference Range for Estimated GFR: Greater than 90 mL/min/1.73 m2NOTE:The MDRD equation has not been validated for use with theelderly (over 70 years of age), women, patien tswith serious comorbid condition or persons with extremes ofbody size, muscle mass, or nutritional status. Chemistry (test code = GLU-T) 124 mg/dL 70-105 H Chemistry (test code = CA) 8.4 mg/dL 7.8-10.44 N [id number] 05:50:00* Test Item Value Reference Range Interpretation Comments Accuchek (test code = ACU) 114 mg/dL 70-110 H Xlpktdfgee4141-52-65 05:43:00* Test Item Value Reference Range Interpretation Comments Hematology (test code = WBCT) 5.9 thou/uL 4.8-10.8 N Hematology (test code = RBCT) 2.80 mill/uL 4.70-6.10 L Hematology (test code = HGBT) 9.5 g/dL 14.0-18.0 L Hematology (test code = HCTT) 27.0 % 42.0-52.0 L Hematology (test code = MCV) 96.6 fl 80.0-94.0 H Hematology (test code = MCH) 33.9 pg 27.0-31.0 H Hematology (test code = MCHC) 35.1 g/dL 32.0-36.0 N Hematology (test code = RDW) 12.9 % 11.5-14.5 N Hematology (test code = PLTT) 122 thou/uL 130-400 L Hematology (test code = MPV) 7.6 fL 7.4-10.4 N Hematology (test code = %NEUT) 60.7 % 42.0-75.0 N Hematology (test code = %LYMPH) 26.3 % 21.0-51.0 N Hematology (test code = %MONO) 6.5 % 0.0-10.0 N Hematology (test code = %EOS) 5.2 % 0.0-10.0 N Hematology (test code = %BASO) 1.2 % 0.0-1.0 H Hematology (test code = NEUT#) 3.6 thou/uL 1.40-6.50 N Hematology (test code = LYMPH#) 1.6 thou/uL 1.20-3.40 N Hematology (test code = MONO#) 0.4 thou/uL 0.11-0.59 N Hematology (test code = EOS#) 0.3 thou/uL 0.0-0.7 N Hematology (test code = BASO#) 0.1 thou/uL 0.0-0.2 N [id number] 21:59:00* Test Item Value Reference Range Interpretation Comments Accuchek (test code = ACU) 221 mg/dL 70-110 H Azylgliff5201-45-33 21:27:00* Test Item Value Reference Range Interpretation Comments Chemistry (test code = TROPI-T) 0.010 ng/mL < 0.028 Reference Range 0.00 - 0.028 ng/mL Negative 0.029 - 0.29 ng/mL Indeterminate Greater or Equal to 0.3 ng/mL Strongly suggests DE Qijdmedm0524-78-73 18:31:00* Test Item Value Reference Range Interpretation Comments Accuchek (test code = ACU) 99 mg/dL 70-110 N Rgjtxukfw9824-00-52 18:26:00* Test Item Value Reference Range Interpretation Comments Chemistry (test code = TROPI-T) 0.019 ng/mL < 0.028 Reference Range 0.00 - 0.028 ng/mL Negative 0.029 - 0.29 ng/mL Indeterminate Greater or Equal to 0.3 ng/mL Strongly suggests DE Influenza A B Ag Tslumq9028-48-20 16:30:00* Test Item Value Reference Range Interpretation Comments Influenza A B Ag Screen (test code = FLU) The rapid Fl u A B test can distinguish between influenza A Influenza A B Ag Screen (test code = FLU1) follow up c onfirmatory testing is warranted. Influenza A B Ag Screen (test code = FLU1) FLUB N Influenza A B Ag Screen (test code = FLU1) N N [id number] 15:58:00* Test Item Value Reference Range Interpretation Comments Chemistry (test code = CHOL) 183 mg/dl < 200 Desired Chemistry (test code = TRIG) 315 mg/dL Less than 150 H Chemistry (test code = HDL) 30 mg/dL >60 Neg Risk Adult HDL levels in terms of risk for Coronary Heart Disease > or Equal to 60 mg/dL Negative Risk < 40 mg/dL HIGH Risk Chemistry (test code = LDL) 90 mg/dL Levels in terms of risk for coronary heart disease: Desirable: Less than 130 mg/dL Borderline High Risk: 130 - 159 mg/dL High Risk: Greater than 160 mg/dL Chemistry (test code = CRISK) 6.1 Less than 4.5 Adult levels in terms of risk for Coronary Heart Disease: Dangerous Level: Greater than 14.3 High: 6.7 - 14.3 Average: 4.0 - 6.7 Below average: 2.7 - 4.0 Protection probable: Less than 2.7 Chemistry - BNP, HgbA1c, [id number] 15:15:00* Test Item Value Reference Range Interpretation Comments Chemistry - BNP, HgbA1c, PTHi (test code = BNP) 706.2 pg/mL 0-100 H Nhjdqmbko7413-93-88 15:06:00* Test Item Value Reference Range Interpretation Comments Chemistry (test code = LIP) 68 U/L 8-78 N Ncpvomkhy5060-58-12 15:05:00* Test Item Value Reference Range Interpretation Comments Chemistry (test code = CKMBM-T) 1.8 ng/mL 0-6.6 N Chemistry (test code = TROPI-T) 0.011 ng/mL < 0.028 Reference Range 0.00 - 0.028 ng/mL Negative 0.029 - 0.29 ng/mL Indeterminate Greater or Equal to 0.3 ng/mL Strongly suggests DE Fzrohiymd6785-17-56 15:01:00* Test Item Value Reference Range Interpretation Comments Chemistry (test code = NA-T) 137 mmol/L 136-145 N Chemistry (test code = K-T) 3.7 mmol/L 3.5-5.1 N Chemistry (test code = CL) 98 mmol/L 98-107 N Chemistry (test code = CO2) 29 mmol/L 22-29 N Chemistry (test code = ANGP) 14 mmol/L 10-20 N Chemistry (test code = BUN) 26 mg/dL 8.9-20.6 H Chemistry (test code = CREATT) 5.82 mg/dL 0.6-1.3 H Chemistry (test code = EGFRMDRD) 10 Reference Range for Estimated GFR: Greater than 90 mL/min/1.73 m2NOTE:The MDRD equation has not been validated for use with theelderly (over 70 years of age), women, patien tswith serious comorbid condition or persons with extremes ofbody size, muscle mass, or nutritional status. Chemistry (test code = GLU-T) 94 mg/dL 70-105 N Chemistry (test code = CA) 9.1 mg/dL 7.8-10.44 N Chemistry (test code = TBILI) 0.8 mg/dL 0.2-1.2 N Chemistry (test code = TP) 7.8 g/dL 6.0-8.3 N Chemistry (test code = ALB) 3.9 g/dL 3.5-5.0 N Chemistry (test code = GLOB) 3.9 g/dL 2.4-3.5 H Chemistry (test code = AG) 1.0 g/dL 1.2-2.2 L Chemistry (test code = ALP) 202 U/L 40-150 H Chemistry (test code = AST) 23 U/L 5-34 N Chemistry (test code = ALT) 20 U/L 8-55 N [id number] 15:01:00* Test Item Value Reference Range Interpretation Comments Chemistry (test code = CK) 86 U/L 30-200 N Ijdvhamxvik2742-40-83 14:53:00* Test Item Value Reference Range Interpretation Comments Coagulation (test code = PT-T) 14.3 SEC 12.0-14.7 N Coagulation (test code = INR) 1.1 ATTENTION: READ CAREFULLY The recommended therapeutic ranges for oral anticoagulanttreatments are: Low Intensity: 1.5 - 2.0 Moderate Intensity: 2.0 - 3.0 High Intensity (1): 2.5 - 3.5 High Intensity (2): 3.0 - 4.0 CRITICAL: > 4.0 Anticoagulant? NONEMedical Necessity SUSPECT COAGULOPATHYAnticoagulant? NONEMedi bon Necessity: SUSP PERGPdxmzccndzy2360-17-41 14:53:00* Test Item Value Reference Range Interpretation Comments Coagulation (test code = PTT) 39.6 SEC 22.9-36.1 H Anticoagulant? NONEMedical Necessity SUSPECT COAGULOPATHYAnticoagulant? NONEMedi bon Necessity: SUSP QQJQRpmsqxmzrc8864-66-28 14:36:00* Test Item Value Reference Range Interpretation Comments Hematology (test code = WBCT) 6.7 thou/uL 4.8-10.8 N Hematology (test code = RBCT) 3.13 mill/uL 4.70-6.10 L Hematology (test code = HGBT) 10.5 g/dL 14.0-18.0 L Hematology (test code = HCTT) 29.7 % 42.0-52.0 L Hematology (test code = MCV) 94.7 fl 80.0-94.0 H Hematology (test code = MCH) 33.6 pg 27.0-31.0 H Hematology (test code = MCHC) 35.5 g/dL 32.0-36.0 N Hematology (test code = RDW) 13.0 % 11.5-14.5 N Hematology (test code = PLTT) 134 thou/uL 130-400 N Hematology (test code = MPV) 7.1 fL 7.4-10.4 L Hematology (test code = %NEUT) 64.8 % 42.0-75.0 N Hematology (test code = %LYMPH) 23.8 % 21.0-51.0 N Hematology (test code = %MONO) 5.5 % 0.0-10.0 N Hematology (test code = %EOS) 5.2 % 0.0-10.0 N Hematology (test code = %BASO) 0.6 % 0.0-1.0 N Hematology (test code = NEUT#) 4.3 thou/uL 1.40-6.50 N Hematology (test code = LYMPH#) 1.6 thou/uL 1.20-3.40 N Hematology (test code = MONO#) 0.4 thou/uL 0.11-0.59 N Hematology (test code = EOS#) 0.4 thou/uL 0.0-0.7 N Hematology (test code = BASO#) 0.0 thou/uL 0.0-0.2 N Culture, Blood (Line ONLY)2017-07-27 15:57:00* Test Item Value Reference Range Interpretation Comments Culture, Blood (Line ONLY) (test code = BCL) NG5 Culture, Blood (Line ONLY)2017-07-27 15:30:00* Test Item Value Reference Range Interpretation Comments Culture, Blood (Line ONLY) (test code = BCL) NG5 Kacutvpr2309-31-19 06:01:00* Test Item Value Reference Range Interpretation Comments Accuchek (test code = ACU) 116 mg/dL 70-110 H Eldhngepv7417-58-63 05:51:00* Test Item Value Reference Range Interpretation Comments Chemistry (test code = NA-T) 135 mmol/L 136-145 L Chemistry (test code = K-T) 4.5 mmol/L 3.5-5.1 N Chemistry (test code = CL) 95 mmol/L 98-107 L Chemistry (test code = CO2) 22 mmol/L 22-29 N Chemistry (test code = ANGP) 23 mmol/L 10-20 H Chemistry (test code = BUN) 67 mg/dL 8.9-20.6 H Chemistry (test code = CREATT) 12.78 mg/dL 0.6-1.3 H Chemistry (test code = EGFRMDRD) 4 Reference Range for Estimated GFR: Greater than 90 mL/min/1.73 m2NOTE:The MDRD equation has not been validated for use with theelderly (over 70 years of age), women, patien tswith serious comorbid condition or persons with extremes ofbody size, muscle mass, or nutritional status. Chemistry (test code = GLU-T) 122 mg/dL 70-105 H Chemistry (test code = CA) 7.3 mg/dL 7.8-10.44 L Chemistry (test code = TBILI) 0.7 mg/dL 0.2-1.2 N Chemistry (test code = TP) 6.7 g/dL 6.0-8.3 N Chemistry (test code = ALB) 3.3 g/dL 3.5-5.0 L Chemistry (test code = GLOB) 3.4 g/dL 2.4-3.5 N Chemistry (test code = AG) 1.0 g/dL 1.2-2.2 L Chemistry (test code = ALP) 130 U/L 40-150 N Chemistry (test code = AST) 24 U/L 5-34 N Chemistry (test code = ALT) 12 U/L 8-55 N Comment use blood in fqrEugaflrxxr1786-96-76 05:39:00* Test Item Value Reference Range Interpretation Comments Hematology (test code = WBCT) 5.6 thou/uL 4.8-10.8 N Hematology (test code = RBCT) 3.21 mill/uL 4.70-6.10 L Hematology (test code = HGBT) 11.3 g/dL 14.0-18.0 L Hematology (test code = HCTT) 31.1 % 42.0-52.0 L Hematology (test code = MCV) 96.8 fl 80.0-94.0 H Hematology (test code = MCH) 35.3 pg 27.0-31.0 H Hematology (test code = MCHC) 36.5 g/dL 32.0-36.0 H Hematology (test code = RDW) 14.7 % 11.5-14.5 H Hematology (test code = PLTT) 109 thou/uL 130-400 L Hematology (test code = MPV) 8.4 fL 7.4-10.4 N Hematology (test code = %NEUT) 49.6 % 42.0-75.0 N Hematology (test code = %LYMPH) 34.4 % 21.0-51.0 N Hematology (test code = %MONO) 9.0 % 0.0-10.0 N Hematology (test code = %EOS) 6.4 % 0.0-10.0 N Hematology (test code = %BASO) 0.7 % 0.0-1.0 N Hematology (test code = NEUT#) 2.8 thou/uL 1.40-6.50 N Hematology (test code = LYMPH#) 1.9 thou/uL 1.20-3.40 N Hematology (test code = MONO#) 0.5 thou/uL 0.11-0.59 N Hematology (test code = EOS#) 0.4 thou/uL 0.0-0.7 N Hematology (test code = BASO#) 0.0 thou/uL 0.0-0.2 N Comment use blood in labChemistry - BNP, HgbA1c, [id number] 05:36:00* Test Item Value Reference Range Interpretation Comments Chemistry - BNP, HgbA1c, PTHi (test code = PRLN0NW) 5.2 % 4. 0-6.0 N Therapeutic goals for glycemic control (ADA)Adults:- Goal of therapy: Less than 7.0% HbA1c- Action suggested: Greater than 8.0% CdO9qOdysrlpfc patients:- Toddlers and preschoolers: Less than 8.5% (but Greater than 7.5%)- School age (6-12 years): Less than 8%- Adolescents and young adults (13-19 years): Less than 7.5%Diagnosing diabetes (ADA)- HbA1c: Greater than or equal to 6.5% Values of 5.7 - 6.4% indicate HIGH risk for developing DiabetesInternational Expert Committee Report on the Role of the [id number] in the Diagnosis of Diabetes. Diabetes Care 2009July;32(7):1327-1334ADA, Diagnosis classification of diabetes mellitus.Diabetes Care 2010; 33 Suppl 1:S62 Xzcbqkfs4411-22-87 21:26:00* Test Item Value Reference Range Interpretation Comments Accuchek (test code = ACU) 110 mg/dL 70-110 N Zthrldcl3675-51-07 17:34:00* Test Item Value Reference Range Interpretation Comments Accuchek (test code = ACU) 107 mg/dL 70-110 N Prruteawxr4511-75-72 16:40:00* Test Item Value Reference Range Interpretation Comments Hematology (test code = SED) 42 mm/hr Less than 15 Vvqjyxvx0962-99-77 11:06:00* Test Item Value Reference Range Interpretation Comments Accuchek (test code = ACU) 167 mg/dL 70-110 H Fdasnixj4599-33-83 08:37:00* Test Item Value Reference Range Interpretation Comments Accuchek (test code = ACU) 124 mg/dL 70-110 H Jwuknpzty9529-99-52 05:18:00* Test Item Value Reference Range Interpretation Comments Chemistry (test code = NA-T) 137 mmol/L 136-145 N Chemistry (test code = K-T) 4.3 mmol/L 3.5-5.1 N Chemistry (test code = CL) 96 mmol/L 98-107 L Chemistry (test code = CO2) 26 mmol/L 22-29 N Chemistry (test code = ANGP) 19 mmol/L 10-20 N Chemistry (test code = BUN) 47 mg/dL 8.9-20.6 H Chemistry (test code = CREATT) 10.60 mg/dL 0.6-1.3 H Chemistry (test code = EGFRMDRD) 5 Reference Range for Estimated GFR: Greater than 90 mL/min/1.73 m2NOTE:The MDRD equation has not been validated for use with theelderly (over 70 years of age), women, patien tswith serious comorbid condition or persons with extremes ofbody size, muscle mass, or nutritional status. Chemistry (test code = GLU-T) 111 mg/dL 70-105 H Chemistry (test code = CA) 8.2 mg/dL 7.8-10.44 N Chemistry (test code = TBILI) 1.0 mg/dL 0.2-1.2 N Chemistry (test code = TP) 7.3 g/dL 6.0-8.3 N Chemistry (test code = ALB) 3.6 g/dL 3.5-5.0 N Chemistry (test code = GLOB) 3.7 g/dL 2.4-3.5 H Chemistry (test code = AG) 1.0 g/dL 1.2-2.2 L Chemistry (test code = ALP) 143 U/L 40-150 N Chemistry (test code = AST) 24 U/L 5-34 N Chemistry (test code = ALT) 16 U/L 8-55 N Comment use blood in wriGjzhseobod9642-08-87 04:57:00* Test Item Value Reference Range Interpretation Comments Hematology (test code = WBCT) 7.5 thou/uL 4.8-10.8 N Hematology (test code = RBCT) 3.46 mill/uL 4.70-6.10 L Hematology (test code = HGBT) 11.7 g/dL 14.0-18.0 L Hematology (test code = HCTT) 33.8 % 42.0-52.0 L Hematology (test code = MCV) 97.8 fl 80.0-94.0 H Hematology (test code = MCH) 33.9 pg 27.0-31.0 H Hematology (test code = MCHC) 34.7 g/dL 32.0-36.0 N Hematology (test code = RDW) 14.8 % 11.5-14.5 H Hematology (test code = PLTT) 124 thou/uL 130-400 L Hematology (test code = MPV) 8.2 fL 7.4-10.4 N Hematology (test code = %NEUT) 64.5 % 42.0-75.0 N Hematology (test code = %LYMPH) 23.8 % 21.0-51.0 N Hematology (test code = %MONO) 7.1 % 0.0-10.0 N Hematology (test code = %EOS) 3.8 % 0.0-10.0 N Hematology (test code = %BASO) 0.8 % 0.0-1.0 N Hematology (test code = NEUT#) 4.8 thou/uL 1.40-6.50 N Hematology (test code = LYMPH#) 1.8 thou/uL 1.20-3.40 N Hematology (test code = MONO#) 0.5 thou/uL 0.11-0.59 N Hematology (test code = EOS#) 0.3 thou/uL 0.0-0.7 N Hematology (test code = BASO#) 0.1 thou/uL 0.0-0.2 N Comment use blood in [id number] 22:55:00* Test Item Value Reference Range Interpretation Comments Accuchek (test code = ACU) 109 mg/dL 70-110 N [id number] 20:48:00* Test Item Value Reference Range Interpretation Comments Accuchek (test code = ACU) 125 mg/dL 70-110 H [id number] 18:08:00* Test Item Value Reference Range Interpretation Comments Chemistry (test code = TROPI-T) 0.091 ng/mL < 0.028 H Reference Range 0.00 - 0.028 ng/mL Negative 0.029 - 0.29 ng/mL Indeterminate Greater or Equal to 0.3 ng/mL Strongly suggests DE Chemistry - [id number] 15:49:00* Test Item Value Reference Range Interpretation Comments Chemistry - Specials (test code = TSH3) 1.9226 uIU/mL 0.35-4.94 N Comment use blood in labChemistry - [id number] 15:49:00* Test Item Value Reference Range Interpretation Comments Chemistry - Specials (test code = VITD) 10.6 ng/ml > 30.0 L Comment use blood in [id number] 15:35:00* Test Item Value Reference Range Interpretation Comments Chemistry (test code = TROPI-T) 0.067 ng/mL < 0.028 H Reference Range 0.00 - 0.028 ng/mL Negative 0.029 - 0.29 ng/mL Indeterminate Greater or Equal to 0.3 ng/mL Strongly suggests DE Chemistry - BNP, HgbA1c, [id number] 15:35:00* Test Item Value Reference Range Interpretation Comments Chemistry - BNP, HgbA1c, PTHi (test code = PTHI) 592.8 pg/mL 19.8- 88.0 H Comment use blood in [id number] 15:28:00* Test Item Value Reference Range Interpretation Comments Chemistry (test code = CRP) 3.16 mg/dL = or < 0.5 H Comment use blood in labWhat test does the doctor want? C-REACTIVE PROTEIN (CRP) [id number] 15:21:00* Test Item Value Reference Range Interpretation Comments Hematology (test code = SED) 17 mm/hr Less than 15 Comment use blood in labChemistry - [id number] 14:46:00* Test Item Value Reference Range Interpretation Comments Chemistry - Specials (test code = HBSABINT) Reactive NonReactiv e Chemistry - Specials (test code = HBSABCONC) 539.32 mIU/mL REFERENCE RANGES for HBSAB (Hepatitis B Surface Antibody):Nonreactive: 0.0 - <8.0 Individual is considered NOT immune to HBV infectionIndeterminate: >= 8.0 - <12.0 The immune status of the individual should be further assessed by follow-up testi ng.Reactive: >= 12.0 Individual is considered immune to HBV infection. Chemistry - [id number] 14:46:00* Test Item Value Reference Range Interpretation Comments Chemistry - Specials (test code = THBSAG) Non-Reactive S/CO NonReac tive Chemistry - Fntqrisl7280-93-12 14:46:00* Test Item Value Reference Range Interpretation Comments Chemistry - Specials (test code = INTHEPBCT) Non-Reactive NonReacti ve Chemistry - Iijknqnv1856-16-38 14:46:00* Test Item Value Reference Range Interpretation Comments Chemistry - Specials (test code = INTHEPC) Non-Reactive NonReactive Bkdqhpcji2522-26-15 12:12:00* Test Item Value Reference Range Interpretation Comments Chemistry (test code = CKMBM-T) 4.0 ng/mL 0-6.6 N Chemistry (test code = TROPI-T) 0.027 ng/mL < 0.028 Reference Range 0.00 - 0.028 ng/mL Negative 0.029 - 0.29 ng/mL Indeterminate Greater or Equal to 0.3 ng/mL Strongly suggests DE Njdtdlgo2748-15-64 10:56:00* Test Item Value Reference Range Interpretation Comments Accuchek (test code = ACU) 110 mg/dL 70-110 N Lngqigswg7730-39-57 09:00:00* Test Item Value Reference Range Interpretation Comments Chemistry (test code = CCC) @ 2855 (READBACK) Refer to Critical Value designated by an *L or *H Chemistry (test code = NA-T) 140 mmol/L 136-145 N Chemistry (test code = K-T) 6.9 mmol/L 3.5-5.1 HH Critical value! Chemistry (test code = CL) 104 mmol/L 98-107 N Chemistry (test code = CO2) 14 mmol/L 22-29 L Chemistry (test code = ANGP) 29 mmol/L 10-20 H Chemistry (test code = BUN) 100 mg/dL 8.9-20.6 H Chemistry (test code = CREATT) 18.69 mg/dL 0.7-1.3 H Chemistry (test code = EGFRMDRD) 3 Reference Range for Estimated GFR: Greater than 90 mL/min/1.73 m2NOTE:The MDRD equation has not been validated for use with theelderly (over 70 years of age), women, patien tswith serious comorbid condition or persons with extremes ofbody size, muscle mass, or nutritional status. Chemistry (test code = GLU-T) 115 mg/dL 70-105 H Chemistry (test code = CA) 7.3 mg/dL 7.8-10.44 L Chemistry (test code = TBILI) 0.9 mg/dL 0.2-1.2 N Chemistry (test code = TP) 7.8 g/dL 6.0-8.3 N Chemistry (test code = ALB) 4.1 g/dL 3.5-5.0 N Chemistry (test code = GLOB) 3.7 g/dL 2.4-3.5 H Chemistry (test code = AG) 1.1 g/dL 1.2-2.2 L Chemistry (test code = ALP) 180 U/L 40-150 H Chemistry (test code = AST) 31 U/L 5-34 N Chemistry (test code = ALT) 20 U/L 8-55 N [id number] 09:00:00* Test Item Value Reference Range Interpretation Comments Chemistry (test code = MG) 2.5 mg/dL 1.6-2.6 N Kjzkfcvdvp6081-22-51 08:35:00* Test Item Value Reference Range Interpretation Comments Hematology (test code = WBCT) 9.7 thou/uL 4.8-10.8 N Hematology (test code = RBCT) 3.76 mill/uL 4.70-6.10 L Hematology (test code = HGBT) 12.5 g/dL 14.0-18.0 L Hematology (test code = HCTT) 36.9 % 42.0-52.0 L Hematology (test code = MCV) 98.0 fl 80.0-94.0 H Hematology (test code = MCH) 33.3 pg 27.0-31.0 H Hematology (test code = MCHC) 34.0 g/dL 32.0-36.0 N Hematology (test code = RDW) 14.1 % 11.5-14.5 N Hematology (test code = PLTT) 128 thou/uL 130-400 L Hematology (test code = MPV) 6.9 fL 7.4-10.4 L Hematology (test code = %NEUT) 76.8 % 42.0-75.0 H Hematology (test code = %LYMPH) 14.4 % 21.0-51.0 L Hematology (test code = %MONO) 3.2 % 0.0-10.0 N Hematology (test code = %EOS) 4.3 % 0.0-10.0 N Hematology (test code = %BASO) 1.2 % 0.0-1.0 H Hematology (test code = NEUT#) 7.5 thou/uL 1.40-6.50 H Hematology (test code = LYMPH#) 1.4 thou/uL 1.20-3.40 N Hematology (test code = MONO#) 0.3 thou/uL 0.11-0.59 N Hematology (test code = EOS#) 0.4 thou/uL 0.0-0.7 N Hematology (test code = BASO#) 0.1 thou/uL 0.0-0.2 N COMPREHENSIVE METABOLIC [id number] 14:08:00* Test Item Value Reference Range Interpretation Comments TOTAL PROTEIN (BEAKER) (test code = 770) 7.2 gm/dL 6.0-8.3 ALBUMIN (BEAKER) (test code = 1145) 3.6 g/dL 3.5-5.0 ALKALINE PHOSPHATASE (BEAKER) (test code = 346) 185 U/L 40-150 H BILIRUBIN TOTAL (BEAKER) (test code = 377) 0.4 mg/dL 0.2-1.2 SODIUM (BEAKER) (test code = 381) 139 meq/L 136-145 POTASSIUM (BEAKER) (test code = 379) 4.0 meq/L 3.5-5.1 CHLORIDE (BEAKER) (test code = 382) 97 meq/L 98-107 L CO2 (BEAKER) (test code = 355) 29 meq/L 22-29 BLOOD UREA NITROGEN (BEAKER) (test code = 354) 25 mg/dL 7-21 H CREATININE (BEAKER) (test code = 358) 6.81 mg/dL 0.57-1.25 H GLUCOSE RANDOM (BEAKER) (test code = 652) 118 mg/dL 70-105 H CALCIUM (BEAKER) (test code = 697) 9.1 mg/dL 8.4-10.2 AST (SGOT) (BEAKER) (test code = 353) 25 U/L 5-34 ALT (SGPT) (BEAKER) (test code = 347) 15 U/L 6-55 EGFR (BEAKER) (test code = 1092) mL/min/1.73 sq m INSUFFICIENT CLINICAL DATA TO CALCULATE ESTIMATED GFR. BILIRUBIN, [id number] 14:05:00* Test Item Value Reference Range Interpretation Comments BILIRUBIN DIRECT (BEAKER) (test code = 706) 0.2 mg/dL 0.1-0.5 PROTHROMBIN TIME/[id number] 13:44:00* Test Item Value Reference Range Interpretation Comments PROTIME (BEAKER) (test code = 759) 14.8 seconds 11.7-14.7 H INR (BEAKER) (test code = 370) 1.2 <=5.9 RECOMMENDED COUMADIN/WARFARIN INR THERAPY RANGESSTANDARD DOSE: 2.0 - 3.0 Inclu arabella: PROPHYLAXIS for venous thrombosis, systemic embolization; TREATMENT for jan ous thrombosis and/or pulmonary embolus.HIGH RISK: Target INR is 2.5-3.5 for pat ients with mechanical heart valves.CBC W/PLT COUNT & AUTO [id number] 13:41:00* Test Item Value Reference Range Interpretation Comments WHITE BLOOD CELL COUNT (BEAKER) (test code = 775) 8.1 K/ L 4.0- 10.0 RED BLOOD CELL COUNT (BEAKER) (test code = 761) 2.25 M/ L 4.20-5 .80 L HEMOGLOBIN (BEAKER) (test code = 410) 7.8 GM/DL 13.0-16.8 L HEMATOCRIT (BEAKER) (test code = 411) 23.2 % 40.0-50.0 L MEAN CORPUSCULAR VOLUME (BEAKER) (test code = 753) 103.0 fL 82. 0-98.0 H MEAN CORPUSCULAR HEMOGLOBIN (BEAKER) (test code = 751) 34.8 pg 27.0-33.0 H MEAN CORPUSCULAR HEMOGLOBIN CONC (BEAKER) (test code = 752) 33.8 GM/DL 32.0-36.0 RED CELL DISTRIBUTION WIDTH (BEAKER) (test code = 412) 16.7 % 10.3-14.2 H PLATELET COUNT (BEAKER) (test code = 756) 169 K/CU MM 150-430 MEAN PLATELET VOLUME (BEAKER) (test code = 754) 7.4 fL 6.5-10 .5 NUCLEATED RED BLOOD CELLS (BEAKER) (test code = 413) 0 /100 WBC 0 -0 NEUTROPHILS RELATIVE PERCENT (BEAKER) (test code = 429) 66 % LYMPHOCYTES RELATIVE PERCENT (BEAKER) (test code = 430) 21 % MONOCYTES RELATIVE PERCENT (BEAKER) (test code = 431) 8 % EOSINOPHILS RELATIVE PERCENT (BEAKER) (test code = 432) 5 % BASOPHILS RELATIVE PERCENT (BEAKER) (test code = 437) 0 % NEUTROPHILS ABSOLUTE COUNT (BEAKER) (test code = 670) 5.36 K/ L 1.80-8.00 LYMPHOCYTES ABSOLUTE COUNT (BEAKER) (test code = 414) 1.67 K/ L 1.48-4.50 MONOCYTES ABSOLUTE COUNT (BEAKER) (test code = 415) 0.62 K/ L 0. 00-1.30 EOSINOPHILS ABSOLUTE COUNT (BEAKER) (test code = 416) 0.44 K/ L 0.00-0.50 BASOPHILS ABSOLUTE COUNT (BEAKER) (test code = 417) 0.04 K/ L 0. 00-0.20 0.00ALPHA FETOPROTEIN (AFP), TUMOR [id number] 14:01:00* Test Item Value Reference Range Interpretation Comments ALPHA-FETOPROTEIN (BEAKER) (test code = 1094) 4.1 ng/mL <10.0 Effective 09/26/2014: Reference Range ChangeNew: <10.0 Previous: 0.0-8.0 COMPREHENSIVE METABOLIC [id number] 13:39:00* Test Item Value Reference Range Interpretation Comments TOTAL PROTEIN (BEAKER) (test code = 770) 8.3 gm/dL 6.0-8.3 ALBUMIN (BEAKER) (test code = 1145) 4.2 g/dL 3.5-5.0 ALKALINE PHOSPHATASE (BEAKER) (test code = 346) 247 U/L 40-150 H BILIRUBIN TOTAL (BEAKER) (test code = 377) 0.6 mg/dL 0.2-1.2 SODIUM (BEAKER) (test code = 381) 137 meq/L 136-145 POTASSIUM (BEAKER) (test code = 379) 4.6 meq/L 3.5-5.1 CHLORIDE (BEAKER) (test code = 382) 95 meq/L 98-107 L CO2 (BEAKER) (test code = 355) 26 meq/L 22-29 BLOOD UREA NITROGEN (BEAKER) (test code = 354) 35 mg/dL 7-21 H CREATININE (BEAKER) (test code = 358) 7.35 mg/dL 0.57-1.25 H GLUCOSE RANDOM (BEAKER) (test code = 652) 120 mg/dL 70-105 H CALCIUM (BEAKER) (test code = 697) 10.1 mg/dL 8.4-10.2 AST (SGOT) (BEAKER) (test code = 353) 42 U/L 5-34 H ALT (SGPT) (BEAKER) (test code = 347) 19 U/L 6-55 EGFR (BEAKER) (test code = 1092) mL/min/1.73 sq m INSUFFICIENT CLINICAL DATA TO CALCULATE ESTIMATED GFR. BILIRUBIN, [id number] 13:29:00* Test Item Value Reference Range Interpretation Comments BILIRUBIN DIRECT (BEAKER) (test code = 706) 0.3 mg/dL 0.1-0.5 PROTHROMBIN TIME/[id number] 13:13:00* Test Item Value Reference Range Interpretation Comments PROTIME (BEAKER) (test code = 759) 14.0 seconds 11.7-14.7 INR (BEAKER) (test code = 370) 1.1 <=5.9 RECOMMENDED COUMADIN/WARFARIN INR THERAPY RANGESSTANDARD DOSE: 2.0 - 3.0 Inclu arabella: PROPHYLAXIS for venous thrombosis, systemic embolization; TREATMENT for jan ous thrombosis and/or pulmonary embolus.HIGH RISK: Target INR is 2.5-3.5 for pat ients with mechanical heart valves.CBC W/PLT COUNT & AUTO [id number] 13:04:00* Test Item Value Reference Range Interpretation Comments WHITE BLOOD CELL COUNT (BEAKER) (test code = 775) 8.1 K/ L 4.0- 10.0 RED BLOOD CELL COUNT (BEAKER) (test code = 761) 3.73 M/ L 4.20-5 .80 L HEMOGLOBIN (BEAKER) (test code = 410) 12.7 GM/DL 13.0-16.8 L HEMATOCRIT (BEAKER) (test code = 411) 35.5 % 40.0-50.0 L MEAN CORPUSCULAR VOLUME (BEAKER) (test code = 753) 95.1 fL 82. 0-98.0 MEAN CORPUSCULAR HEMOGLOBIN (BEAKER) (test code = 751) 34.0 pg 27.0-33.0 H MEAN CORPUSCULAR HEMOGLOBIN CONC (BEAKER) (test code = 752) 35.8 GM/DL 32.0-36.0 RED CELL DISTRIBUTION WIDTH (BEAKER) (test code = 412) 15.0 % 10.3-14.2 H PLATELET COUNT (BEAKER) (test code = 756) 196 K/CU MM 150-430 MEAN PLATELET VOLUME (BEAKER) (test code = 754) 7.9 fL 6.5-10 .5 NUCLEATED RED BLOOD CELLS (BEAKER) (test code = 413) 0 /100 WBC 0 -0 NEUTROPHILS RELATIVE PERCENT (BEAKER) (test code = 429) 53 % LYMPHOCYTES RELATIVE PERCENT (BEAKER) (test code = 430) 28 % MONOCYTES RELATIVE PERCENT (BEAKER) (test code = 431) 10 % EOSINOPHILS RELATIVE PERCENT (BEAKER) (test code = 432) 6 % BASOPHILS RELATIVE PERCENT (BEAKER) (test code = 437) 1 % NEUTROPHILS ABSOLUTE COUNT (BEAKER) (test code = 670) 4.31 K/ L 1.80-8.00 LYMPHOCYTES ABSOLUTE COUNT (BEAKER) (test code = 414) 2.30 K/ L 1.48-4.50 MONOCYTES ABSOLUTE COUNT (BEAKER) (test code = 415) 0.84 K/ L 0. 00-1.30 EOSINOPHILS ABSOLUTE COUNT (BEAKER) (test code = 416) 0.52 K/ L 0.00-0.50 H BASOPHILS ABSOLUTE COUNT (BEAKER) (test code = 417) 0.10 K/ L 0. 00-0.20 0.00- MRI LOW EXT W/O CONT [id number] 17:24:00 FAX: Thalia Garcia MD [phone] [place]: St: [facility] FAX: Juan Francisco BetancourtPaulacitlaly Lloyd [phone] FAX: Alex Oliva MD [phone] Name: MARCO A ROBLES [facility] : 1970 Age/S: 46/M [address] [place] [address] Unit #: [id number] [facility] [address] Phys: Thalia Dempsey MD Acct: [id number] Dis Date: Status: [facility] PH ONE #: [phone] Exam Date: 10/15/2016 1644 FAX #: [phone] Reason: LEFT FOOT ULCERS; R/O OM EXAMS: CPT CODE: [id number] MR I LOW EXT W/[place] [address] MRI left foref oot without contrast. INDICATION: Left foot ulcer. Osteomyelitis. COMPARISON: 09/11/2016 foot radiographs. 06/11/2015 foot MRI. TECHNIQUE: Triplanar MRI imaging of the foot is performed without contrast with T1 and fluid sensitive sequences. FINDINGS: Motion artifact degrades image quality. Moderate to severe degenerative changes of first tarsometatarsal joint seen with some chronic appearing erosions a nd degenerative spurring. Minimal osteoarthritic spurring of the first me tatarsophalangeal joint also identified. Disarticulation of the first met atarsophalangeal joint once again noted. Remaining bones of the forefoot demonstrate normal T1 hyperintense marrow signal without acute fractures o r osteomyelitis. Plantar soft tissue wounds at the second and third metatarsophalangeal joint areas appear to be present without rim-enhancin g organized fluid collections appreciated. Minimal plantar muscle edema p resent with possible mild atrophy. No acute tendon tear is identified by this motion limited study. IMPRESSION: 1. Plantar foref oot soft tissue wounds without convincing evidence for osteomyelitis or abscess. 2. Status post disarticulation of fourth metatarsophalangeal j oint. 3. Degenerative changes of first tarsometatarsal joint. 4 . Motion limited study. SL: NICHOL Electronically Signed by Lane Trinidad o n 10/15/2016 at 1724 Reported and signed by: Blaise Trinidad M.D. CC: Thalia Dempsey MD; Paula VIGIL; Alex Nunn MD Technologist: Felipe Faustin, RT(R)(CT) Trnsc rd Date/Time/By: 10/15/2016 (1723) : By: [email or web address] Orig Print D/T: S: 10/15/2016 (148) PAGE 1 Signed R eport - MRI LOW EXT W/O CONT [id number] 17:24:00 FAX: Thalia Garcia MD [phone] [place]: St: [facility] FAX: Paula García [phone] FAX: Alex Oliva MD --------- Name: MARCO A ROBLES [facility] Lottie Garcia : 1970 Age/S: 46/M [address] [place] [address] it #: [id number] Loc: [place] [address] Phys: Thalia Dempsey MD Acct: [id number] Dis Date: Status: K PH ONE #: [phone] Exam Date: 10/15/2016 1644 FAX #: [phone] Reason: LEFT FOOT ULCERS; R/O OM EXAMS: CPT CODE: [id number] MR I LOW EXT W/[place] [address] MRI left foref oot without contrast. INDICATION: Left foot ulcer. Osteomyelitis. COMPARISON: 09/11/2016 foot radiographs. 06/11/2015 foot MRI. TECHNIQUE: Triplanar MRI imaging of the foot is performed without contrast with T1 and fluid sensitive sequences. FINDINGS: Motion artifact degrades image quality. Moderate to severe degenerative changes of first tarsometatarsal joint seen with some chronic appearing erosions a nd degenerative spurring. Minimal osteoarthritic spurring of the first me tatarsophalangeal joint also identified. Disarticulation of the first met atarsophalangeal joint once again noted. Remaining bones of the forefoot demonstrate normal T1 hyperintense marrow signal without acute fractures o r osteomyelitis. Plantar soft tissue wounds at the second and third metatarsophalangeal joint areas appear to be present without rim-enhancin g organized fluid collections appreciated. Minimal plantar muscle edema p resent with possible mild atrophy. No acute tendon tear is identified by this motion limited study. IMPRESSION: 1. Plantar foref oot soft tissue wounds without convincing evidence for osteomyelitis or abscess. 2. Status post disarticulation of fourth metatarsophalangeal j oint. 3. Degenerative changes of first tarsometatarsal joint. 4 . Motion limited study. SL: NICHOL Electronically Signed by Lane Trinidad o n 10/15/2016 at 1724 Reported and signed by: Blaise Trinidad M.D. CC: Thalia Dempsey MD; Paula VIGIL; Alex Nunn MD Technologist: Felipe Faustin, RT(R)(CT) Trnsc rd Date/Time/By: 10/15/2016 (342) : By: [email or web address] Orig Print D/T: S: 10/15/2016 (8183) PAGE 1 Signed R eport - XR FOOT 3 + V [id number] 22:20:00 FAX: Paula García [phone] [place]: St: [facility] FAX: Alex Oliva MD [phone] Name: MARCO A ROBLES [facility] : 1970 Age/S: 46/M [address] [place] [address] Unit #: [id number] Loc: [facility] [place] [address] Phys: Alex Nunn MD Acct: [id number] Dis Date: Status: UNK PHONE #: [phone] Exam Date: 10/08/20162031 FAX #: [phone] Reason: BILATERAL FEET ULCERS /GANGRENE EXAMS: CPT CODE: [id number] XR FOOT 3 + [place] [address] Patient: MARCO A ROBLES. : 1970; Age: 46 years; Gender: Male. MR: [id number]. Ordering physician: Alex Nunn MD. Bilateral foot 6 views. HISTORY: Bilateral foot ulcers and gangrene. COMPARISON: Bilateral foot x-ray 06/06/20 15. FINDINGS: Frontal, oblique and lateral views of the bilateral foot were obtained. Right foot demonstrates interval amputat ion of the 3rd toe at the 3rd MTP joint. Degenerative change of the foref oot noted, along with extensive atherosclerotic calcifications. Plantar c alcaneal spur noted. Plantar forefoot soft tissue ulcer suspected. No fr acture, dislocation or osteomyelitis. No ankle joint effusion. Left foot demonstrates interval amputation of the 4th toe at the 4th M TP joint. Mild degenerative change of the forefoot noted. Marked degener ative fibrocystic change at the 1st TMT joint is stable. Plantar forefoot soft tissue ulcer also suspected. No fracture, dislocation or osteomyeli tis. No ankle joint effusion. Extensive atherosclerotic calcifications a lso noted. SL: ANDREASH at 2220 Reported and signed by: Enzo Smith M.D. CC: Paula VIGIL; Alex Nunn MD Tech nologist: Tanner Pascual, RT(R) Trnscrd Date/Ti me/By: 10/08/2016 (2219) : By: [email or web address] Orig Print D/T: S: 10/08/2016 (4141) PAGE 1 Signed Report - XR FOOT 3 + V [id number] 22:20:00 FAX: Paula García [phone] [place]: St: [facility] FAX: Alex Oliva MD [phone] Name: MARCO A ROBLES [facility] : 1970 Age/S: 46/M [address] [place] [address] Unit #: [id number] Loc: [place] [address] Phys: Alex Nunn MD Acct: [id number] Dis Date: Status: UNK PHONE #: [phone] Exam Date: 10/08/20162031 FAX #: [phone] Reason: BILATERAL FEET ULCERS /GANGRENE EXAMS: CPT CODE: [id number] XR FOOT 3 + [place] [address] Patient: MARCO A ROBLES. : 1970; Age: 46 years; Gender: Male. MR: [id number]. Ordering physician: Alex Nunn MD. Bilateral foot 6 views. HISTORY: Bilateral foot ulcers and gangrene. COMPARISON: Bilateral foot x-ray 06/06/20 15. FINDINGS: Frontal, oblique and lateral views of the bilateral foot were obtained. Right foot demonstrates interval amputat ion of the 3rd toe at the 3rd MTP joint. Degenerative change of the foref oot noted, along with extensive atherosclerotic calcifications. Plantar c alcaneal spur noted. Plantar forefoot soft tissue ulcer suspected. No fr acture, dislocation or osteomyelitis. No ankle joint effusion. Left foot demonstrates interval amputation of the 4th toe at the 4th M TP joint. Mild degenerative change of the forefoot noted. Marked degener ative fibrocystic change at the 1st TMT joint is stable. Plantar forefoot soft tissue ulcer also suspected. No fracture, dislocation or osteomyeli tis. No ankle joint effusion. Extensive atherosclerotic calcifications a lso noted. SL: SLCamillaH at 2220 Reported and signed by: Enzo Smith M.D. CC: Paula VIGIL; Alex Nunn MD Tech nologist: Tanner Pascual RT(R) Trnscrd Date/Ti me/By: 10/08/2016 (2219) : By: [email or web address] Orig Print D/T: S: 10/08/2016 (7970) PAGE 1 Signed Report - DOP ART SGL LEVEL [id number] 19:49:00 Name: MARCO A ROBLES [facility] : 1970 Age/S: 46 / M [address] [place] [address] Unit #: [id number] Loc: [place] [address] Phys: Alex Nunn MD Acct: [id number] Di s Date: Status: UNK PHONE #: Exam Date: 10/08/20161947 FAX #: Reason: BILATERAL FOOT ULCERS EXAMS: CPT CODE: [id number] DOP ART SGL L EVEL MOIRA 35588 Bilateral lower extremity arterial ultrasound 10/08/2016. HISTORY: Bilateral foot ulcers. FINDINGS: There are triphasic waveforms within the right common femoral, femoral, popliteal, posterior tibial, and dorsalis pedis arter ies. There are triphasic waveforms within the left common femoral, femoral, popliteal, posterior tibial, and dorsalis pedis arteries. IMPRESSION: No evidence for a hemodynamically significant conrad rial stenosis in the bilateral lower extremities. SL: LIT at 1949 Reported and signed by: Cole Gant M.D. CC: Paula VIGIL; Alex Nunn MD Technologist: [facility] Date/Time: 10/08/2016 (1948) Lucien [email or web address] Orig Print D/T: S: 10/08/2016 (1951) Probe: PAGE 1 Signed Report - DOP ART SGL LEVEL [id number] 19:49:00 Name: MARCO A ROBLES [facility] : 1970 Age/S: 46 / M [address] [place] [address] Blvd Unit #: [id number] Loc: [place] [address] Phys: Alex Nunn MD Acct: [id number] Dis Date: Status: UNK PHONE #: [phone] Exam Date: 10/08/20161947 FAX #: [phone] Reason: BILATERAL FOOT ULCERS EXAMS: CPT CODE: [id number] DOP ART SGL LEVEL MOIRA 06483 Bilateral lower extremity arterial ultrasound 10/08/2016. HISTORY: Bilateral foot ulcers. FINDINGS: There are triphasic waveforms within the right common femoral, femoral, popliteal, posterior tibial, and dorsalis pedis arter ies. There are triphasic waveforms within the left common femoral, femoral, popliteal, posterior tibial, and dorsalis pedis arteries. IMPRESSION: No evidence for a hemodynamically significant conrad rial stenosis in the bilateral lower extremities. SL: LIT at 1949 Reported and signed by: Cole Gant M.D. CC: Paula VIGIL; Alex Nunn MD Technologist: Loreto Waldron Trnutb Date/Time: 10/08/2016 (1948) Lucien [email or web address] Orig Print D/T: S: 10/08/2016 (1951) Probe: PAGE 1 Signed Report - DUP EXTRACRANIAL [id number] 19:48:00 Name: MARCO A ROBLES [facility] Lottie Garcia : 1970 Age/S: 46 / M [address] [place] [address] Blvd Unit #: [id number] Loc: [place] [address] Phys: Hilton Diggs DO Acct: [id number] Dis Date: Status: UNK PHONE #: [phone] Exam Date: 10/08/20161946 FAX #: [phone] Reason: LEFT SIDED WEAKNESS EXAMS: CPT CODE: [id number] DUP EXTRACRANIAL MOIRA 01603 BILATERAL CAROTID ULTRASOUND HISTORY: Left-sided weakness, dizziness TECHNIQUE: Cortes-scale, color Doppler and spectral Doppler of the carotid arteries was performed. Any reported ICA stenoses indirectly reference the distal internal carotid diameter as the denominator for stenosis measurement, utilizing consensus panel criteria. RIGHT: There is no significant carotid bulb plaque ICA PSV 82 cm/sec CCA PSV 91 cm/sec ICA/CCA ratio 0.9 Vertebral flow is antegrade. LEFT: There is no significant carotid bulb plaque ICA PSV 118 cm/sec CCA PSV 92 cm/sec ICA/CCA ratio 1.3 Vertebral flow is antegrade. IMPRESSION: 1. RIGHT: No significant carotid plaque. 2. LEFT: No significant carotid plaque. End Impression Consensus panel Doppler US criteria for diagnosi s of ICA stenosis. Stenosis (%) ICA PSV (cm/sec) I CA/CCA ratio <50 <125 <2.0 50-69 125-230 2.0-4.0 >70 but less than >230 >4.0 near occlusion Near occlusion High, low, or Variable undetectable SL: BM-H PAGE 1 Signed Report (CONTINUED) Name: MARCO A MONTEMAYOR [place] : [birth year] Age/S: 46 / M [address] [place] [address] Unit #: [id number] Loc: [place] [address] Phys: Madain,Safi B DO Acct: [id number] Dis Date: Status: UNK PHONE #: Exam Date: 10/08/20161946 FAX #: [phone] R minerva: LEFT SIDED WEAKNESS EXAMS: CPT CODE: [id number] DUP EXTRACRANIAL MOIRA [id number] <Continued> at 1947 Reported and signed by: Cole Gant M.D. CC: Hilton Diggs DO; Paula VIGIL Technologist: Loreto Waldron Trnscb Date/Time: 10/08/2016 (1947) [email or web address] Orig Print D/T: S: 10/08/2016 (1950) Probe: PAGE 2 Signed Report - DUP EXTRACRANIAL [id number] 19:48:00 Name: [facility] : 1970 Age/S: 46 / M [address] [place] [address] Unit #: [id number] Loc: [place] [address] Phys: Madain,Safi B DO Acct: [id number] Dis Date: Status: UNK PHONE #: [phone] Exam Date: 10/08/20161946 FAX #: [phone] Reason: LEFT SIDED WEAKNESS EXAMS: CPT CODE: [id number] DUP EXTRACRANIAL MOIRA [id number] BILATERAL CAROTID ULTRASOUND HISTORY: Left-sided weakness, dizziness TECHNIQUE: Cortes-scale, color Doppler and spectral Doppler of the carotid arteries was performed. Any reported ICA stenoses indirectly reference the distal internal carotid diameter as the denominator for stenosis measurement, utilizing consensus panel criteria. RIGHT: There is no significant carotid bulb plaque ICA PSV 82 cm/sec CCA PSV 91 cm/sec ICA/CCA ratio 0.9 Vertebral flow is antegrade. LEFT: There is no significant carotid bulb plaque ICA PSV 118 cm/sec CCA PSV 92 cm/sec ICA/CCA ratio 1.3 Vertebral flow is antegrade. IMPRESSION: 1. RIGHT: No significant carotid plaque. 2. LEFT: No significant carotid plaque. End Impression Consensus panel Doppler US criteria for diagnosi s of ICA stenosis. Stenosis (%) ICA PSV (cm/sec) I CA/CCA ratio <50 <125 <2.0 50-69 125-230 2.0-4.0 >70 but less than >230 >4.0 near occlusion Near occlusion High, low, or Variable undetectable SL: [facility] PAGE 1 Signed Report (CONTINUED) Name: MARCO A MONTEMAYOR [facility] : [birth year] Age/S: 46 / M [address] [place] [address] Bl Unit #: [id number] Loc: [place] [address] Phys: Hilton Diggs DO Acct: [id number] Dis Date: Status: UNK PHONE #: Exam Date: 10/08/20161946 FAX #: [phone] R minerva: LEFT SIDED WEAKNESS EXAMS: CPT CODE: [id number] DUP EXTRACRANIAL MOIRA 58986 <Continued> at 1948 Reported and signed by: Cole Gant M.D. CC: Hilton Diggs DO; Paula VIGIL Technologist: [facility] Date/Time: 10/08/2016 (1947) [email or web address] Orig Print D/T: S: 10/08/2016 (1950) Probe: PAGE 2 Signed Report - MRI BRAIN W/O [id number] 16:05:00 FAX: Hilton Diggs DO [place]: St: [facility] FAX: Paula García [phone] Name: MARCO A ROBLES [facility] : 1970 Age/S: 46/M [address] [place] [address] Unit #: [id number] Loc: [facility] [place] [address] Phys: Hilton Diggs DO Acct: [id number] Dis Date: Status: UNK PHONE #: [phone] Exam Date: 10/08/2016 1437 FAX #: [phone] Reason: LEFT SIDED WEAKNESS EXAMS: CPT CODE: [id number] MRI BRAIN W/O CONT 16789 MRI brain without contrast 10/08/2016. HISTORY: Le ft-sided weakness. PROCEDURE: Multiplanar multisequence imaging of the brain was performed without contrast. Comparison is mad e to head CT performed on 10/08/2016. FINDINGS: Diffusion weighted imaging demonstrates no acute ischemic event. No evidence for acute infar ct is present. No acute hemorrhage, midline shift, extra-axial fluid colle ction, hydrocephalus, or mass lesion is present. The expected intracranial flow voids are present. The visualized mastoid air cells are clear. There is no air-fluid level in the visualized paranasal sinuses. There is no bl ooming artifact on the heme sequence to suggest remote hemorrhage. The craniocervical junction and corpus callosum are within normal limits. N o significant area of abnormal increased FLAIR signal is present. IMPRESSION: No acute intracranial abnormality. SL: LIT at 1605 Reported and signed by: Cole Gant M.D. CC: Willamjair Bernabe [place] DO; Paula VIGIL Technologist: Paul Kaye RT(R)(CT)(M R) Trnscrd Date/Time/By: 10/08/2016 (1240) : By: tToo [email or web address] Orig Print D/T: S: 10/08/2016 (3225) YARITZA 1 Signed Report - MRI BRAIN W/O [id number] 16:05:00 FAX: ChualexiaHilton [place]: St: [facility] FAX: Juan Francisco Paula Betancourt [phone] Name: ROBLESMARCO A ADILENE [facility] : 1970 Age/S: 46/M [address] [place] [address] Unit #: [id number] Loc: [place] [address] Phys: Hilton Diggs DO Acct: [id number] Dis Date: Status: UNK PHONE #: [phone] Exam Date: 10/08/2016 1437 FAX #: [phone] Reason: LEFT SIDED WEAKNESS EXAMS: CPT CODE: [id number] MRI BRAIN W/O CONT 15965 MRI brain without contrast 10/08/2016. HISTORY: Left-sided weakness. PROCEDURE: Multiplanar multisequence imaging of the brain was performed without contrast. Comparison is made to head CT performed on 10/08/2016. FINDINGS: Diffusion weighted imaging demonstrates no acute ischemic event. No evidence for acute infar ct is present. No acute hemorrhage, midline shift, extra-axial fluid colle ction, hydrocephalus, or mass lesion is present. The expected intracranial flow voids are present. The visualized mastoid air cells are clear. There is no air-fluid level in the visualized paranasal sinuses. There is no bl ooming artifact on the heme sequence to suggest remote hemorrhage. The craniocervical junction and corpus callosum are within normal limits. N o significant area of abnormal increased FLAIR signal is present. IMPRESSION: No acute intracranial abnormality. SL: BM-H at 1605 Reported and signed by: Cole Gant M.D. CC: Hilton Diggs DO; Paula VIGIL Technologist: Paul Kaye, RT(R)(CT)(M R) Trnscrd Date/Time/By: 10/08/2016 (0758) : By: tToo [email or web address] Orig Print D/T: S: 10/08/2016 (1213) YARITZA Inxero 1 Signed Report - MRA HEAD W/O [id number] 15:27:00 FAX: Hilton Diggs DO [place]: St: [facility] FAX: Paula García [phone] Name: MARCO A ROBLES [facility] : 1970 Age/S: 46/M [address] [place] [address] Blvd Unit #: [id number] Loc: [place] [address] Phys: Hilton Diggs DO Acct: [id number] Dis Date: Status: UNK PHONE #: [phone] Exam Date: 10/08/2016 1437 FAX #: [phone] Reason: LEFT SIDED WEAKNESS EXAMS: CPT CODE: [id number] MRA HEAD W/O CONTRAST 32783 MRA BRAIN WITHOUT CONTRAST 3-D MIP RECONSTRUCTIONS OF THE INTRACRANIAL ARTERIES HISTORY: Left-sided weakness and dizziness earlier today. COMPARISON: No relevant priors available. Full and complete MRA of the intracranial vessels was performed including 3-D MIP reconstructions of the arteries. No contrast administered. The cavernous and supraclinoid ICAs, middle and anterior cerebral arteries appear normal. There is a small caliber right A1 segment and the majority of flow to the right anterior cerebral artery is supplied by the left A1 segment. There is a persistent left posterior communicating artery. The distal vertebral arteries show flow signal. Basilar artery and remainder of the vessels of the posterior circulation appear normal. IMPRESSION: No flow-limiting stenosis, aneurysm or abrupt vessel cut off identified. END IMPRESSION SL: TRCamillaH at 1527 Reported and signed by: Oliverio Luis M.D. CC: Hilton Diggs DO; Paula VIGIL Technologist: RT Nichol(R)(CT)(MR) Trnutrd Date/Time/By: 10/08/2016 (1527) : By: JinaRTB O rig Print D/T: S: 10/08/2016 (4997) PAGE 1 Signed Report - MRA HEAD W/O CONTRAST 2016-10-08 15:27:00 FAX: Hilton Diggs DO [place]: St: [facility] FAX: Paula García [phone] Name: ROBLESMARCO A ADILENE [facility] : 1970 Age/S: 46/M [address] [place] [address] Unit #: [id number] Loc: [place] [address] Phys: Hilton Diggs DO Acct: [id number] Dis Date: Status: UNK PHONE #: [phone] Exam Date: 10/08/2016 1437 FAX #: [phone] Reason: LEFT SIDED WEAKNESS EXAMS: CPT CODE: [id number] MRA HEAD W/O CONTRAST 47987 MRA BRAIN WITHOUT CONTRAST 3-D MIP RECONSTRUCTIONS OF THE INTRACRANIAL ARTERIES HISTORY: Left-sided weakness and dizziness earlier today. COMPARISON: No relevant priors available. Full and complete MRA of the intracranial vessels was performed including 3-D MIP reconstructions of the arteries. No contrast administered. The cavernous and supraclinoid ICAs, middle and anterior cerebral arteries appear normal. There is a small caliber right A1 segment and the majority of flow to the right anterior cerebral artery is supplied by the left A1 segment. There is a persistent left posterior communicating artery. The distal vertebral arteries show flow signal. Basilar artery and remainder of the vessels of the posterior circulation appear normal. IMPRESSION: No flow-limiting stenosis, aneurysm or abrupt vessel cut off identified. END IMPRESSION SL: PENG at 1527 Reported and signed by: Oliverio Luis M.D. CC: Hilton VIGIL Technologist: RT Nichol(R)(CT)(MR) Trnscrd Date/Time/By: 10/08/2016 (1527) : By: Radha O rig Print D/T: S: 10/08/2016 (3022) PAGE 1 Signed Report - CT HEAD/BRAIN W/O CONT 2016-10-08 09:17:00 Name: MARCO A ROBLES [facility] : 1970 Age/S: 46 / M [address] [place] [address] Unit #: [id number] Loc: [place] [address] Phys: Hilton Diggs DO Acct: [id number] Dis Date: Status: UNK PHONE #: [phone] Exam Date: 10/08/2016 09 FAX #: [phone] Reason: left sided weakness EXAMS: CPT CODE: [id number] CT HEAD/BRAIN W/O CONT [address] head. INDICATION: Left-sided weakness and dizziness today. COMPARISON: None. TECHNIQUE: Noncontrast CT head was performed from skull base to vertex at 3 mm slice collimation. FINDINGS: Cortes-white matter differentiation is preserved. Ventricles are normal in size for the patient's stated age. There is no evidence of midline shift. No intra or extra-axial fluid collections are seen. No abnormally increased parenchymal density is identified to suggest acute hemorrhage. No evidence for acute ischemic infarct or cerebral mass. Visualized portions of the paranasal sinuses and mastoid air cells are clear. IMPRESSION: No acute intracranial findings. SL: NICHOL at 0917 Reported and signed by: Blaise Trinidad M.D. CC: Hilton Diggs DO Technologist:RT Lena(R)(CT) CTDI: DLP: Trnscb Date/Time: 10/08/2016 (916) [email or web address] Orig Print D/T: S: 10/08/2016 (76) PAGE 1 Signed Report - CT HEAD/BRAIN W/O [id number] 09:17:00 Name: MARCO A ROBLES [facility] : 1970 Age/S: 46 / M [address] [place] [address] Bl Unit #: [id number] Loc: [place] [address] Phys: Hilton Diggs DO Acct: [id number] Dis Date: Status: UNK PHONE #: [phone] Exam Date: 10/08/2016907 FAX #: [phone] Reason: left sided weakness EXAMS: CPT CODE: [id number] CT HEAD/BRAIN W/O CONT [address] head. INDICATION: Left-sided weakness and dizziness today. COMPARISON: None. TECHNIQUE: Noncontrast CT head was performed from skull base to vertex at 3 mm slice collimation. FINDINGS: Cortes-white matter differentiation is preserved. Ventricles are normal in size for the patient's stated age. There is no evidence of midline shift. No intra or extra-axial fluid collections are seen. No abnormally increased pa renchymal density is identified to suggest acute hemorrhage. No evidence f or acute ischemic infarct or cerebral mass. Visualized portions of the par anasal sinuses and mastoid air cells are clear. IMPRESSION : No acute intracranial findings. SL: KRE-H Electronically Signed by Lane Trinidad o n 10/08/2016 at 0917 Reported and signed by: Blaise Trinidad M.D. CC: Hilton Diggs DO Technologist:RT Lena(R)(CT) CTDI: DLP: Trnscb Date/Time: 10/08/2016 (0917) [email or web address] Felipe g Print D/T: S: 10/08/2016 (1380) PAGE 1 Signed Repo rt - XR CHEST 1 [id number] 09:12:00 FAX: Hilton Diggs DO [place]: St: UNK Name: MARCO A VIGIL [facility] : [birth year] Age/S: 46/M [address] [place] [address] Blvd Unit #: [id number] Loc: [place] [address] Phys: Hilton Diggs DO Acct: [id number] Dis Date: Status: UNK PHONE #: [phone] Exam Date: 10/08/2016 0909 FAX #: [phone] Reason: left sided weakness EXAMS: CPT CODE: [id number] XR CHEST 1 V 63969 Single portable AP chest. INDICATION: Left-sided weakness today with dizziness. COMPAR JENNYFER: 10/10/2015 radiograph. FINDINGS: The cardiomediastinal silhou ette is within normal limits for size. Pulmonary vascular congestion may be present. Left costophrenic angle sharp. Right costophrenic angle excl uded from [id number]. No suspicious osseous abnormality. IMPRESSION: There maybe mild pulmonary vascular congestion. SL: CHRISH at 0912 Reported and signed by: Blaise Trinidad M.D. CC: Willam Diggs DO Technologist: Neil Huizar RT(R) Trnscrd Date/Time/By: 10/08/2016 (911 ) : By: [email or web address] Orig Print D/T: S: 10/08/2016 (16) PAGE 1 Signed Report - XR CHEST 1 [id number] 09:12:00 FAX: Hilton Diggs DO [place]: St: [facility] Name: MARCO A VIGIL [facility] : [birth year] Age/S: 46/M [address] [place] [address] Unit #: [id number] Loc: [place] [address] Phys: Hilton Diggs DO Acct: [id number] Dis Date: Status: UNK PHONE #: [phone] Exam Date: 10/08/2016 09 FAX #: [phone] Reason: left sided weakness EXAMS: CPT CODE: [id number] XR CHEST 1 V 82999 Single portable AP chest. INDICATION: Left-sided weakness today with dizziness. COMPAR JENNYFER: 10/10/2015 radiograph. FINDINGS: The cardiomediastinal silhou ette is within normal limits for size. Pulmonary vascular congestion may be present. Left costophrenic angle sharp. Right costophrenic angle excl uded from [id number]-dh-[id number]. No suspicious osseous abnormality. IMPRESSION: There maybe mild pulmonary vascular congestion. SL: NICHOL at 0912 Reported and signed by: Blaise Trinidad M.D. CC: Willam Diggs DO Technologist: RT Yue(R) Trnscrd Date/Time/By: 10/08/2016 (911 ) : By: [email or web address] Orig Print D/T: S: 10/08/2016 (7029) PAGE 1 Signed Report - XR CHEST 1 [id number] 10:04:00 FAX: Kelsey Parker MD [phone] [place]: St: [facility] Name: MARCO A VIGIL [facility] : [birth year] Age/S: 45/M [address] [place] [address] Unit #: [id number] Loc: [place] [address] Phys: Kelsey Parker MD Acct: [id number] Dis Date: Status: UNK PHONE #: [phone] Exam Date: 10/10/2015958 FAX #: [phone] Reason: cp EXAMS: CPT CODE: [id number] XR CHEST 1 V 20296 Single portable AP chest. INDICATION: Cough for one week. Chest pain. Anemia. COMPAR JENNYFER: 09/17/2015 radiographs. FINDINGS: Right-sided dialysis cathet er tips project over superior vena cava area. The cardiomediastinal silho uette is within normal limits for size for AP technique and degree of pulm onary inflation. Lungs are clear. Costophrenic angles appear free of ple ural fluid. No suspicious osseous abnormality identified. IMPRESSION: Stable chest. No acute pulmonary findings. SL:01 at 1004 Report ed and signed by: Blaise Trinidad M.D. CC: Kelsey payne MD Technologist: Keisha CheemaRT(R) Trnscrd Date/Time/By: 10/10/2015 (1004) : By: Opal [email or web address] Orig Print D/T: S: 10/10/2015 (1008) [facility] 1 Signed Report - XR CHEST 1 [id number] 10:04:00 FAX: Kelsey Parker MD [phone] [place]: St: UNK Name: MARCO A VIGIL [facility] : [birth year] Age/S: 45/M [address] [place] [address] Blvd Unit #: [id number] Loc: [place] [address] Phys: Kelsey Parker MD Acct: [id number] Dis Date: Status: UNK PHONE #: [phone] Exam Date: 10/10/201559 FAX #: [phone] Reason: cp EXAMS: CPT CODE: [id number] XR CHEST 1 V 75960 Single portable AP chest. INDICATION: Cough for one week. Chest pain. Anemia. COMPAR JENNYFER: 09/17/2015 radiographs. FINDINGS: Right-sided dialysis cathet er tips project over superior vena cava area. The cardiomediastinal silho uette is within normal limits for size for AP technique and degree of pulm onary inflation. Lungs are clear. Costophrenic angles appear free of ple ural fluid. No suspicious osseous abnormality identified. IMPRESSION: Stable chest. No acute pulmonary findings. SL:01 at 1004 Report ed and signed by: Blaise Trinidad M.D. CC: Kelsey payne MD Technologist: Keisha Cheema,RT(R) Trnscrd Date/Time/By: 10/10/2015 (1004) : By: Opal [email or web address] Orig Print D/T: S: 10/10/2015 (1008) YARITZA 1 Signed Report - XR CHEST 2 [id number] 11:13:00 FAX: Lavelle Salmeron [phone] [place]: St: UNK Name: MARCO A VIGIL [facility] : [birth year] Age/S: 45/M [address] [place] [address] Unit #: [id number] Loc: [place] [address] Phys: Lavelle Joy MD Acct: [id number] Dis Date: Status: UNK PHONE #: [phone] Exam Date: 09/17/2015 1109 FAX #: [phone] Reason: PREOP FOR FISTULA CREATION EXAMS: CPT CODE: [id number] XR CHEST 2 V 47499 Chest 2 views: HISTO RY: Surgical clearance, formation of fistula. FINDINGS: Of lungs a re clear. The heart and mediastinal contour stable from 06/13/2015. Right Tessio dialysis catheter in good position. IMPRESSION: No acute finding. SL: 01 at 1113 Reported and signed by: Raheem Valadez M.D. CC: Jose Joy MD Technologist: Jess Callahan RT(Elizabeth) Trnscrd Date/Time/By: 09/17/2015 (1113) : By: ToddG Orig Print D/T: S: 09/17/2015 (1117) PAGE 1 Signed Report - XR CHEST 2 V 2015-09-17 11:13:00 FAX: Lavelle Salmeron [phone] [place]: St: UNK Name: S MARCO A LOFTON [facility] : [birth year] Age/S: 45/M [address] [place], [place] [address]vd Unit #: [id number] Loc: [place] [address] Phys: Lavelle Joy MD Acct: [id number] Dis Date: Status: [employer] PHONE #: [phone] Exam Date: 09/17/2015 1109 FAX #: [phone] Reason: PREOP FOR FISTULA CREATION EXAMS: CPT CODE: [id number] XR CHEST 2 V 44230 Chest 2 views: HISTO RY: Surgical clearance, formation of fistula. FINDINGS: Of lungs a re clear. The heart and mediastinal contour stable from 06/13/2015. Right Tessio dialysis catheter in good position. IMPRESSION: No acute finding. SL: 01 at 1113 Reported and signed by: Raheem Valadez M.D. CC: Jose Joy MD Technologist: OLIVIA Russo) Trnscrd Date/Time/By: 09/17/2015 (1113) : By: JinaETG Orig Print D/T: S: 09/17/2015 (3454) PAGE 1 Signed Report - XR CHEST 1 V 2015-06-13 05:50:00 FAX: Cruz Louis MD [phone] [place]: St: [facility] FAX: Jose Minaya NP [phone] Name: MARCO A ROBLES [facility] [place] : 1970 Age/S: 44/M [address] [place], [place] [address]vd Unit #: [id number] Loc: [facility] [place] [address] Phys: Jose Minaya NP Acct: [id number] Dis Date: Status: UNK PHONE #: [phone] Exam Date: 06/13/2015 0534 FAX #: [phone] Reason: Post Op EXAMS: CPT CODE: [id number] XR CHEST 1 V 14240 Chest, single view dated 06/13/2015. HISTORY: Postop. Acute renal failure. Comparison is made to a prior study dated 06/08/2015. A right jugular central venous catheter is identified with the tip projecting near the caval atrial junction. There is no evidence of a pneumothorax. The heart is normal in size. The lungs demonstrate pulmonary vascular congestion and bilateral basilar atelectasis. No acute pleural space abnormalities are detected. IMPRESSION: 1. Pulmonary vascular congestion. 2. Low lung volumes with bilateral basilar atelectasis. SL: 131 at 0517 Reported and signed by: [place] M.D. CC: Cruz Anders MD; Jose Minaya NP Technologist: Neil Huizar, RT(R); Kristel Escalona RT(R) [facility] Date/Time/By: 06/13/2015 (8297) : By: Baltazar Orig Print D/T: S: 06/13/2015 (2536) PAGE 1 Signed Report - XR CHEST 1 [id number] 05:50:00 FAX: Cruz Louis MD [phone] [place]: St: [facility] FAX: Jose Minaya NP [phone] Name: MARCO A ROBLES [facility] : 1970 Age/S: 44/M [address] [place] [address] Unit #: [id number] Loc: [place] [address] Phys: Jose Minaya NP Acct: [id number] Dis Date: Status: UNK PHONE #: [phone] Exam Date: 06/13/2015 05 FAX #: [phone] Reason: Post Op EXAMS: CPT CODE: [id number] XR CHEST 1 V 69780 Chest, single view dated 06/13/2015. HISTORY: Postop. Acute renal failure. Comparison is made to a prior study dated 06/08/2015. A right jugular central venous catheter is identified with the tip projecting near the caval atrial junction. There is no evidence of a pneumothorax. The heart is normal in size. The lungs demonstrate pulmonary vascular congestion and bilateral basilar atelectasis. No acute pleural space abnormalities are detected. IMPRESSION: 1. Pulmonary vascular congestion. 2. Low lung volumes with bilateral basilar atelectasis. SL: 131 at 0503 Reported and signed by: [place] M.D. CC: Cruz Anders MD; Jose Minaya NP Technologist: Neil Huizar RT(R); Kristel Escalona RT(R) [facility] Date/Time/By: 06/13/2015 (3973) : By: Baltazar Orig Print D/T: S: 06/13/2015 (1736) PAGE 1 Signed Report - MRI LOW EXT W/O CONT RT 2015-06-11 16:42:00 FAX: Ariel Pascal [facility] [phone] [place]: St: [facility] FAX: Cruz Louis MD [phone] Name: MARCO A ROBLES [facility] : 1970 Age/S: 44/M [address] [place] [address] Unit #: [id number] Loc: [place] [address] Phys: Ariel Gusman DPM Acct: [id number] Dis Date: Status: UNK PHONE #: [phone] Exam Date: 06/11/2015 1439 FAX #: [phone] Reason: RT FOOT INFECTION EXAMS: CPT CODE: [id number] MRI LOW EXT W/[place] [address] MRI RIGHT FOOT WITHOUT CONTRAST: HISTORY: Right foot infection and osteomyelitis, diabetes mellitus and acute renal failure. COMPARISON: Right foot x-ray 06/06/2015. FINDINGS: Multiplanar multisequence MRI of the right foot was performed without intravenous or intra-articular gadolinium based contrast. Soft tissue ulcer noted at the tip of the right 3rd toe with marked surrounding bone marrow edema, swelling and induration extending proximally compatible with cellulitis. No drainable fluid collection to suggest abscess. There is marked destruction of the 3rd distal phalanx compatible with osteomy elitis. Marked bone marrow edema also noted involving the 3rd middle phal anx compatible with osteomyelitis, without cortical destruction. Less sev ere bone marrow edema also noted involving the 3rd proximal phalanx, also suspicious for extension of osteomyelitis. No evidence of osteomyelitis i nvolving the 3rd metatarsal. No evidence of 3rd metatarsophalangeal joint septic arthritis. Degenerative change of the 1st metatarsop halangeal joint noted. No evidence of osteomyelitis involving the 1st, 2n d, 4th or 5th toes. Dorsal right foot subcutaneous soft tissue swe lling and edema noted. IMPRESSION: 1. Soft tissue ulcer at the tip of the right 3rd toe with cellulitis. No drainable fluid co llection to suggest abscess. Marked destructive change of the 3rd dista l phalanx is compatible with osteomyelitis. Osteomyelitis of the 3rd mi ddle phalanx is also noted. Less severe bone marrow edema also noted in volving the 3rd proximal phalanx also suspicious for extension of osteom yelitis. 2. Dorsal right foot subcutaneous soft tissue swelli ng and edema. SL: 200 PAGE 1 Signed Report (CONTINUED) FAX: Ariel Pascal DPM [phone] [place]: St: [facility] FAX: Cruz Louis MD [phone] Name: MARCO A ROBLES [facility] : 1970 Age/S: 44/M [address] [place] [address] Unit #: [id number] Loc: [place] [address] Phys: Ariel Gusman DPM Acct: [id number] Dis Date: Status: UNK PHONE #: [phone] Exam Date: 06/11/2015 1439 FAX #: [phone] Reason: RT FOOT INFECTION EXAMS: CPT CODE: [id number] MRI LOW EXT W/[place] [address] <Continued> at 4682 Reported and signed by: Enzo Smith M.D. CC: Ariel Gusman DPM; Cruz Anders MD Technologist: Linda Montes RT(R)(MR) Trnscrd Date/Time/By: 06/11/2015 (4226) : By: Ana María/Nu Print D/T: S: 06/11/2015 (5573) PAGE 2 Signed Report - MRI LOW EXT W/O CONT RT 2015-06-11 16:42:00 FAX: Ariel Pascal DPM [phone] [place]: St: [facility] FAX: Cruz Louis MD [phone] Name: MARCO A ROBLES [facility] : 1970 Age/S: 44/M [address] [place] [address] Unit #: [id number] Loc: [place] [address] Phys: Ariel Gusman DPM Acct: [id number] Dis Date: Status: UNK PHONE #: [phone] Exam Date: 06/11/2015 1439 FAX #: [phone] Reason: RT FOOT INFECTION EXAMS: CPT CODE: [id number] MRI LOW EXT W/[place] [address] MRI RIGHT FOOT WITHOUT CONTRAST: HISTORY: Right foot infection and osteomyelitis, diabetes mellitus and acute renal failure. COMPARISON: Right foot x-ray 06/06/2015. FINDINGS: Multiplanar multisequence MRI of the right foot was performed without intravenous or intra-articular gadolinium based contrast. Soft tissue ulcer noted at the tip of the right 3rd toe with marked surrounding bone marrow edema, swelling and induration extending proximally compatible with cellulitis. No drainable fluid collection to suggest abscess. There is marked destruction of the 3rd distal phalanx compatible with osteomy elitis. Marked bone marrow edema also noted involving the 3rd middle phal anx compatible with osteomyelitis, without cortical destruction. Less sev ere bone marrow edema also noted involving the 3rd proximal phalanx, also suspicious for extension of osteomyelitis. No evidence of osteomyelitis i nvolving the 3rd metatarsal. No evidence of 3rd metatarsophalangeal joint septic arthritis. Degenerative change of the 1st metatarsop halangeal joint noted. No evidence of osteomyelitis involving the 1st, 2n d, 4th or 5th toes. Dorsal right foot subcutaneous soft tissue swe lling and edema noted. IMPRESSION: 1. Soft tissue ulcer at the tip of the right 3rd toe with cellulitis. No drainable fluid co llection to suggest abscess. Marked destructive change of the 3rd dista l phalanx is compatible with osteomyelitis. Osteomyelitis of the 3rd mi ddle phalanx is also noted. Less severe bone marrow edema also noted in volving the 3rd proximal phalanx also suspicious for extension of osteom yelitis. 2. Dorsal right foot subcutaneous soft tissue swelli ng and edema. SL: 200 PAGE 1 Signed Report (CONTINUED) FAX: Ariel Pascal DPM [phone] [place]: St: [facility] FAX: Cruz Louis MD [phone] Name: MARCO A ROBLES [facility] : 1970 Age/S: 44/M [address] [place] [address] Unit #: [id number] Loc: [place] [address] Phys: Ariel Gusman DPM Acct: [id number] Dis Date: Status: UNK PHONE #: [phone] Exam Date: 06/11/2015 1439 FAX #: [phone] Reason: RT FOOT INFECTION EXAMS: CPT CODE: [id number] MRI LOW EXT W/[place] [address] <Continued> at 5452 Reported and signed by: Enzo Smith M.D. CC: Ariel Gusman DPM; Cruz Anders MD Technologist: Linda Montes RT(R)(MR) Trnscrd Date/Time/By: 06/11/2015 (9782) : By: Ana María/Nu Print D/T: S: 06/11/2015 (9614) PAGE 2 Signed Report - MRI LOW EXT W/O CONT 2015-06-11 16:41:00 FAX: Ariel Pascal DPM [phone] [place]: St: [facility] FAX: Cruz Louis MD [phone] Name: MARCO A ROBLES [facility] : 1970 Age/S: 44/M [address] [place] [address] Unit #: [id number] Loc: [place] [address] Phys: Ariel Gusman DPM Acct: [id number] Dis Date: Status: UNK PHONE #: [phone] Exam Date: 06/11/2015 1439 FAX #: [phone] Reason: R/O INFECTION LEFT FOOT EXAMS: CPT CODE: [id number] MRI LOW EXT W/[place] [address] MRI LEFT FOOT WITHOUT CONTRAST: HISTORY: Left foot infection, diabetes mellitus and acute renal failure. COMPARISON: Left foot x-ray 06/06/2015 and MRI left foot 08/25/2013. FINDINGS: Multiplanar multisequence MRI of the left foot was performed without intravenous or intra-articular gadolinium based contrast. There is marked 4th toe soft tissue swelling and edema compatible with cellulitis. No fluid-filled ulcer track or abscess. There is marked bone marrow e renetta/infiltration of the 4th proximal, middle and distal phalanges compati ble with osteomyelitis. There may be osseous destruction of the 4th dista l phalanx. Bone marrow edema also noted involving the plantar half of the 4th metatarsal head without cortical destruction. Differential considera tions include mild/early osteomyelitis versus sequela of regional hyperemi a. 4th metatarsophalangeal joint is intact without evidence of septic arthritis. Plantar forefoot skin thickening with underlying sub cutaneous soft tissue induration and edema noted at the level of the 2nd a nd 3rd metatarsal heads and metatarsophalangeal joints. Please correlate for ulcer versus scarring from previous ulcer in this region. There is bone marrow edema of the 3rd metatarsal head and neck without cortical destruction. Differential considerations include reactive steinberg e secondary to regional edema versus early/mild osteomyelitis. Mild bone marrow edema also noted involving the 2nd proximal phalanx. Again, differ ential considerations include reactive change secondary to regional soft t issue hyperemia and less likely early/mild osteomyelitis. Suboptimally imaged marked degenerative change of the 1st tarsometatarsal joint is noted, new since the previous MR examination of August 2013. Th e Lisfranc ligament is intact, but thickened. There is diffuse mus cular edema without evidence of intramuscular abscess. Dorsal left foot s ubcutaneous soft tissue swelling and edema also noted. IMP RESSION: 1. Marked 4th toe cellulitis without fluid-filled ulcer track or PAGE 1 Signed Report (CONTINUED ) FAX: Ariel Pascal DPM [phone] [place]: St: [facility] FAX: Cruz Louis MD [phone] Name: MARCO A ROBLES [facility] : 1970 Age/S: 44/M [address] [facility] [address] Unit #: [id number] Loc: [place] [address] Phys: Ariel Gusman DPM Acct: [id number] Dis Date: Status: UNK PHONE #: [phone] Exam Date: 5 1439 FAX #: [phone] Reason: R/O INFECTION LEFT FOOT EXAMS: CPT CODE: [id number] MRI LOW EXT W/[place] [address] <Continued> abscess. Osteomyelitis of the 4th proximal, middle and distal phalanges with possible osseous destruction of the 4th distal phalanx. Bone marrow edema also noted involving the plantar half of the 4th metatarsal head without cortical destruction. Differential considerations include early/mild osteomyelitis versus sequela of regional hyperemia. 2. Forefoot skin thickening with underlying subcutaneous soft tissue induration and edema at the level of the 2nd and 3rd metatarsal heads and MTP joints. Please correlate for ulcer versus scar from previous ulcer in this region. 3. Bone marrow edema of the 3rd metatarsal head and neck without cortical destruction. Differential considerations include reactive change secondary to regional hyperemia versus early/mild osteomyelitis. 4. Mild bone marrow edema involving the 2nd proximal phalanx. Differential considerations include reactive change secondary to regional soft tissue hyperemia and less likely early/mild osteomyelitis. 5. Diffuse muscular edema without evidence of intramuscular abscess. Dorsal left foot subcutaneous soft tissue swelling and edema. SL: 200 at 1641 Reported and signed by: Enzo Smith M.D. CC: Ariel Gusman DPM; Cruz Anders MD Technologist: Linda Montes RT(R)(MR) Trnutrd Date/Time/By: 06/11/2015 (0917) : By: PennieVGJ/PennieVGOrig Print D/T: S: 06/11/2015 (4585) PAGE 2 Signed Report - MRI LOW EXT W/O CONT [id number] 16:41:00 FAX: Ariel Pascal DPM [phone] [place]: St: [facility] FAX: Cruz Louis MD [phone] Name: MARCO A ROBLES [facility] : 1970 Age/S: 44/M [address] [place] [address] Unit #: [id number] Loc: [place] [address] Phys: Ariel Gusman DPM Acct: [id number] Dis Date: Status: UNK PHONE #: [phone] Exam Date: 06/11/2015 1439 FAX #: [phone] Reason: R/O INFECTION LEFT FO OT EXAMS: CPT CODE: [id number] MRI LOW EXT W/[place] [address] MRI LEFT FOOT WITHOUT CONTRAST: HISTORY: Left foot infection, diabetes mellitus and acute renal failure. SHWETHA RISON: Left foot x-ray 06/06/2015 and MRI left foot 08/25/2013. FIN DINGS: Multiplanar multisequence MRI of the left foot was performed withou t intravenous or intra-articular gadolinium based contrast. There is marked 4th toe soft tissue swelling and edema compatible with celluliti s. No fluid-filled ulcer track or abscess. There is marked bone marrow e renetta/infiltration of the 4th proximal, middle and distal phalanges compati ble with osteomyelitis. There may be osseous destruction of the 4th dista l phalanx. Bone marrow edema also noted involving the plantar half of the 4th metatarsal head without cortical destruction. Differential considera tions include mild/early osteomyelitis versus sequela of regional hyperemi a. 4th metatarsophalangeal joint is intact without evidence of septic arthritis. Plantar forefoot skin thickening with underlying sub cutaneous soft tissue induration and edema noted at the level of the 2nd a nd 3rd metatarsal heads and metatarsophalangeal joints. Please correlate for ulcer versus scarring from previous ulcer in this region. There is bone marrow edema of the 3rd metatarsal head and neck without cortical destruction. Differential considerations include reactive steinberg e secondary to regional edema versus early/mild osteomyelitis. Mild bone marrow edema also noted involving the 2nd proximal phalanx. Again, differ ential considerations include reactive change secondary to regional soft t issue hyperemia and less likely early/mild osteomyelitis. Suboptimally imaged marked degenerative change of the 1st tarsometatarsal joint is noted, new since the previous MR examination of August 2013. Th e Lisfranc ligament is intact, but thickened. There is diffuse mus cular edema without evidence of intramuscular abscess. Dorsal left foot s ubcutaneous soft tissue swelling and edema also noted. IMP RESSION: 1. Marked 4th toe cellulitis without fluid-filled ulcer track or PAGE 1 Signed Report (CONTINUED ) FAX: Ariel Pascal DPM [phone] [place]: St: [facility] FAX: Cruz Louis MD [phone] Name: MARCO A ROBLES [facility] : 1970 Age/S: 44/M 48 [address] [facility] Unit #: [id number] Loc: [place] [address] Phys: Ariel Gusman DPM Acct: [id number] Dis Date: Status: UNK PHONE #: [phone] Exam Date: 5 4039 FAX #: [phone] Reason: R/O INFECTION LEFT FOOT EXAMS: CPT CODE: [id number] MRI LOW EXT W/[place] [address] <Continued> abscess. Osteomyelitis of the 4th proximal, middle and distal phalanges with possible osseous destruction of the 4th distal phalanx. Bone marrow edema also noted involving the plantar half of the 4th metatarsal head without cortical destruction. Differential considerations include early/mild osteomyelitis versus sequela of regional hyperemia. 2. Forefoot skin thickening with underlying subcutaneous soft tissue induration and edema at the level of the 2nd and 3rd metatarsal heads and MTP joints. Please correlate for ulcer versus scar from previous ulcer in this region. 3. Bone marrow edema of the 3rd metatarsal head and neck without cortical destruction. Differential considerations include reactive change secondary to regional hyperemia versus early/mild osteomyelitis. 4. Mild bone marrow edema involving the 2nd proximal phalanx. Differential considerations include reactive change secondary to regional soft tissue hyperemia and less likely early/mild osteomyelitis. 5. Diffuse muscular edema without evidence of intramuscular abscess. Dorsal left foot subcutaneous soft tissue swelling and edema. SL: 200 at 2011 Reported and signed by: Enzo Smith M.D. CC: Ariel Gusman DPM; Cruz Anders MD Technologist: RT Jose(R)(MR) Trnscrd Date/Time/By: 06/11/2015 (2505) : By: ShaJ/PennieVGOrig Print D/T: S: 06/11/2015 (8811) PAGE 2 Signed Report - DOP ART SGL LEVEL [id number] 13:53:00 Name: MARCO A ROBLES [facility] : 1970 Age/S: 44 / M [address] [place] [address] Unit #: [id number] Loc: [place] [address] Phys: Ariel Gusman DPM Acct: [id number] Dis Date: Status: UNK PHONE #: [phone] Exam Date: 06/11/2015 1352 FAX #: [phone] Reason: BILATERAL FOOT ULCERS. EXAMS: CPT CODE: [id number] DOP ART SGL LEVEL MOIRA 40613 Bilateral lower extremity arterial ultrasound 06/11/2015. HISTORY: Bilateral foot ulcers. FINDINGS: There are triphasic waveforms within the right common femoral, femoral, popliteal, posterior tibial, and dorsalis pedis arteries. The right RACHELLE measures 1.2. There are triphasic waveforms within the left common femoral, femoral, popliteal, posterior tibial, and dorsalis pedis arteries. The left RACHELLE measures 1.2. IMPRESSION: No evidence for a hemodynamically significant arterial stenosis in the bilateral lower extremities. SL: 01 at 1353 Reported and signed by: Cole Gant M.D. CC: Ariel Gusman DPM; Cruz Anders MD Technologist: Shyam Ladd RDMS (AB) (OB) Trnscb Date/Time: 06/11/2015 (4803) [email or web address] Orig Print D/T: S: 06/11/2015 (6182) Probe: PAGE 1 Signed Report - DOP ART SGL LEVEL [id number] 13:53:00 Name: MARCO A ROBLES [facility] : 1970 Age/S: 44 / M [address] [place] [address] Blvd Unit #: [id number] Loc: [place] [address] Phys: Ariel Gusman DPM Acct: [id number] Dis Date: Status: UNK PHONE #: [phone] Exam Date: 06/11/2015 1352 FAX #: [phone] Reason: BILATERAL FOOT ULCERS. EXAMS: CPT CODE: [id number] DOP ART SGL LEVEL MOIRA 79965 Bilateral lower extremity arterial ultrasound 06/11/2015. HISTORY: Bilateral foot ulcers. FINDINGS: There are triphasic waveforms within the right common femoral, femoral, popliteal, posterior tibial, and dorsalis pedis arteries. The right RACHELLE measures 1.2. There are triphasic waveforms within the left common femoral, femoral, popliteal, posterior tibial, and dorsalis pedis arteries. The left RACHELLE measures 1.2. IMPRESSION: No evidence for a hemodynamically significant arterial stenosis in the bilateral lower extremities. SL: 01 at 1353 Reported and signed by: Cole Gant M.D. CC: Ariel Gusman DPM; Cruz Anders MD Technologist: Shyam Ladd RDMS (AB) (OB) Trnscb Date/Time: 06/11/2015 (7911) [email or web address] Orig Print D/T: S: 06/11/2015 (2684) Probe: PAGE 1 Signed Report - XR CHEST 1 [id number] 16:26:00 FAX: Cruz Louis MD [phone] [place]: St: [facility] FAX: Jose Minaya NP [phone] Name: MARCO A ROBLES [facility] : 1970 Age/S: 44/M [address] [place] [address] Unit #: [id number] Loc: [place] [address] Phys: Jose Minaya NP Acct: [id number] Dis Date: Status: UNK PHONE #: [phone] Exam Date: 06/08/2015 1624 FAX #: [phone] Reason: POST TESIO INSERTION. PLACEMENT OK? EXAMS: CPT CODE: [id number] XR CHEST 1 V 92147 One view chest portable: HISTORY: Tessio catheter placement. FINDINGS: The distal tips of the right Tessio dialysis catheter are in satisfactory position near the cavoatrial junction. Minor atelectasis right lung. No pleural fluid or pneumothorax. SL: 200 at 4054 Reported and signed by: Raheem Valadez M.D. CC: Cruz Anders MD; Jose Minaya NP Technologist: RT Faviola(R) Trnscrd Date/Time/By: 06/08/2015 (6331) : By: JinaETG Orig Print D/T: S: 06/08/2015 (8283) PAGE 1 Signed Report - XR CHEST 1 [id number] 16:26:00 FAX: Cruz Louis MD [phone] [place]: St: [facility] FAX: Jose Minaya NP [phone] Name: MARCO A ROBLES [facility] : 1970 Age/S: 44/M [address] [place] [address] Unit #: [id number] Loc: [place] [address] Phys: Jose Minaya NP Acct: [id number] Dis Date: Status: UNK PHONE #: [phone] Exam Date: 06/08/2015 1624 FAX #: [phone] Reason: POST TESIO INSERTION. PLACEMENT OK? EXAMS: CPT CODE: [id number] XR CHEST 1 V 17707 One view chest portable: HISTORY: Tessio catheter placement. FINDINGS: The distal tips of the right Tessio dialysis catheter are in satisfactory position near the cavoatrial junction. Minor atelectasis right lung. No pleural fluid or pneumothorax. SL: 200 at 9 093 Reported and signed by: Raheem Valadez M.D. CC: Cruz Anders MD; Jose Minaya NP T echnologist: RT Faviola(R) Trnscrd Date /Time/By: 06/08/2015 (757) : By: ToddG Orig Print D/T: S: 015 (5106) PAGE 1 Signed Report - XR FLUOROSCOPY 0-60 [id number] 15:47:00 FAX: Lavelle Salmeron [phone] [place]: St: [facility] FAX: Cruz Louis MD [phone] Name: MARCO A ROBLES [facility] : 1970 Age/S: 44/M [address] [place] [address] Unit #: [id number] Loc: [facility] [place] [address] Phys: Jose Joy MD Acct: [id number] Dis Date: Status: UNK PHONE #: [phone] Exam Date: 06/08/2015 1003 FAX #: [phone] Reason: ACUTE KIDNEY INJURY EXAMS: CPT CODE: [id number] XR FLUOROSCOPY 0-60 MIN 53369 PROCEDURE: Fluoroscopic assistance. INDICAT ION: Acute renal injury. Acute renal failure. Diabetes with right middle toe gangrene. Intraoperative Tesio catheter placement. Fluorosco pic time 9 seconds. Fluoroscopic assistance was provided. 2 images available. Interpretation was performed by the operating surgeon. Please refer to the operative report. IMPRESSION: Fluoros copic assistance provided. SL: 03 at 8417 Reported and signed by: En Pascual M.D. CC: Jose Joy MD; Cruz Anders MD Technologist: RT Rafaela(Elizabeth) Trnscrd Date/Time/By: 06/08/2015 (3641) : By: [email or web address] Orig Print D/T: S: 06/08/2015 (4903) PAGE 1 Signed Report - XR FLUOROSCOPY 0-60 [id number] 15:47:00 FAX: Lavelle Salmeron [phone] [place]: St: [facility] FAX: Cruz Louis MD [phone] Name: MARCO A ROBLES [facility] [place] : 1970 Age/S: 44/M [address] [place] [address] Unit #: [id number] Loc: [place] [address] Phys: Jose Joy MD Acct: [id number] Dis Date: Status: UNK PHONE #: [phone] Exam Date: 06/08/2015 1003 FAX #: [phone] Reason: ACUTE KIDNEY INJURY EXAMS: CPT CODE: [id number] XR FLUOROSCOPY 0-60 MIN 17096 PROCEDURE: Fluoroscopic assistance. INDICATION: Acute renal injury. Acute renal failure. Diabetes with right middle toe gangrene. Intraoperative Tesio catheter placement. Fluoroscopic time 9 seconds. Fluoroscopic assistance was provided. 2 images available. Interpretation was performed by the operating surgeon. Please refer to the operative report. IMPRESSION: Fluoroscopic assistance provided. SL: 03 at 1547 Reported and signed by: En Pascual M.D. CC: Jose Joy MD; Cruz Anders MD Technologist: RT Rafaela(R) Trnscrd Date/Time/By: 06/08/2015 (1589) : By: [email or web address] [facility] Print D/T: S: 06/08/2015 (0218) PAGE 1 Signed Report - [facility] 2015-06-06 17:05:00 Name: MARCO A ROBLES [facility] [place] : 1970 Age/S: 44 / M [address] [place] [address] Unit #: [id number] Loc: [place] [address] Phys: Lilo Roblero MD Acct: [id number] Dis Date: Status: UNK PHONE #: [phone] Exam Date: 06/06/2015 1647 FAX #: [phone] Reason: jaspreet on ckd EXAMS: CPT CODE: [id number] [employer] [address] PROCEDURE: RENAL ULTRASOUND INDICATION: Acute kidney injury on chronic kidney disease COMPARISON: 05/08/2009 CT TECHNIQUE: Sonographic evaluation of the kidneys and urinary bladder was performed. FINDINGS: KIDNEYS: The right kidney measures 12 cm in length. Normal contour and parenchymal echogenicity. There is no hydronephrosis, nephrolithiasis, mass lesion or perinephric collection. The left kidney measures 11.4 cm in length. Normal contour and parenchymal echogenicity. There is no hydronephrosis, nephrolithiasis, mass lesion or perinephric collection. BLADDER: Unremarkable. IMPRESSION: Unremarkable renal ultrasound. SL: 01 at 1705 Reported and signed by: Jose Miguel Avitia M.D. CC: Liol Roblero MD; Cruz Anders MD Technologist: Loreto Waldron [facility] Date/Time: 06/06/2015 (1704) [email or web address] Orig Print D/T: S: 06/06/2015 (1703) Probe: PAGE 1 Signed Report - [employer] 2015-06-06 17:05:00 Name: MARCO A ROBLES [facility] : 1970 Age/S: 44 / M [address] [place] [address] Unit #: [id number] Loc: [place] [address] Phys: Lilo Roblero MD Acct: [id number] Dis Date: Status: UNK PHONE #: [phone] Exam Date: 06/06/2015 1647 FAX #: [phone] Reason: jaspreet on ckd EXAMS: CPT CODE: [id number] [employer] [address] PROCEDURE: RENAL ULTRASOUND INDICATION: Acute kidney injury on chronic kidney disease COMPARISON: 05/08/2009 CT TECHNIQUE: Sonographic evaluation of the kidneys and urinary bladder was performed. FINDINGS: KIDNEYS: The right kidney measures 12 cm in length. Normal contour and parenchymal echogenicity. There is no hydronephrosis, nephrolithiasis, mass lesion or perinephric collection. The left kidney measures 11.4 cm in length. Normal contour and parenchymal echogenicity. There is no hydronephrosis, nephrolithiasis, mass lesion or perinephric collection. BLADDER: Unremarkable. IMPRESSION: Unremarkable renal ultrasound. SL: 01 at 1705 Reported and signed by: Jose Miguel Avitia M.D. CC: Lilo Roblero MD; Cruz Anders MD Technologist: [facility] Date/Time: 06/06/2015 (1704) [email or web address] Orig Print D/T: S: 06/06/2015 (8070) Probe: PAGE 1 Signed Report - XR FOOT 3 + V BI 2015-06-06 13:42:00 [place]: St: [facility] Name: MARCO A VIGIL [facility] : [birth year] Age/S: 44/M [address] [place] [address] Unit #: [id number] Loc: [place] [address] Phys: Matthew Call DO Acct: [id number] Dis Date: Status: UNK PHONE #: [phone] Exam Date: 06/06/2015 1331 FAX #: [phone] Reason: DFU, POSS OSTEO EXAMS: CPT CODE: [id number] XR FOOT 3 + [place] [address] PROCEDURE: Right foot serie s radiographs, 3 views. Left foot series radiographs, 3 views. INDICATION: Diabetic foot ulcer. Possible osteomyelitis. SHWETHA RISON: None. RIGHT: Diffuse subcutaneous edema is present. Diffus e extensive arterial wall calcifications are also present. Mild degenerat kasi changes within the phalanges and 1st metatarsal-phalangeal artic ulation. Heterogeneous irregularity of the distal soft tissues of the 3rd digit with possible soft tissue defect. No definite bony destruction sanford ntified. Mild degenerative changes in the midfoot. No other soft tissue defect. No acute bony fracture dislocation. LEFT: Diffuse soft ti ssue edema is more prominent than the left foot. Diffuse arterial wall ca lcifications are demonstrated. Severe degenerative changes with sclerosis , osteophytes and subchondral cystic changes within the 1st partial metata rsal articulation. Heterogeneous sclerosis also identified in the proxima l phalanges of the 2nd and 3rd digits. Soft tissue edema involves the 4th digit. No definite bony destruction. No radiographic evidence for osteo myelitis at this time. There is flattening of the plantar arch with moder ate degenerative changes in the midfoot. IMPRESSION: 1. Diffuse edema throughout the right foot with degenerative changes. Possible soft tissue defect involving the distal 3rd digit. No rad iographic evidence for osteomyelitis within the right foot. 2. Diffuse edema throughout the left foot appears more prominent. Degenerative annalisa nges throughout the left foot are also more prominent with flattening of the plantar arch. No radiographic evidence for osteomyelitis in the le ft foot. SL: 03 at 1342 Reported and signed by: Angelica Gonzalez PAGE 1 Signed Report (CONT INUED) [place]: St: Y[facility]--- Na me: MARCO A ROBLES [facility] : 1 Age/S: 44/M [address] [place] [address] Blvd Unit #: [id number] Loc: [place] [address] Phys: Corbin Call DO Acct: [id number] Dis Da te: Status: UNK PHONE #: [phone] Exam Date: 06/06/2015 4692 FAX #: [phone] Reason: DFU, POSS OSTEO EXAMS: CPT CODE: [id number] XR FOOT 3 + [place] [address] <Continued> CC: Technologist: OLIVIA Mcdonald) [place] Date/Time/By: 06/06/2015 (1342) : By: [email or web address] Orig Print D/T: S: 06/06/2015 (9805) PAGE 2 Signed Report - XR FOOT 3 + V [id number] 13:42:00 [place]: St: [facility] Name: MARCO A VIGIL [facility] : [birth year] Age/S: 44/M [address] [place] [address] Unit #: [id number] Loc: [place] [address] Phys: Matthew Call DO Acct: [id number] Dis Date: Status: UNK PHONE #: [phone] Exam Date: 06/06/2015 1335 FAX #: [phone] Reason: DFU, POSS OSTEO EXAMS: CPT CODE: [id number] XR FOOT 3 + [place] [address] PROCEDURE: Right foot serie s radiographs, 3 views. Left foot series radiographs, 3 views. INDICATION: Diabetic foot ulcer. Possible osteomyelitis. SHWETHA RISON: None. RIGHT: Diffuse subcutaneous edema is present. Diffus e extensive arterial wall calcifications are also present. Mild degenerat kasi changes within the phalanges and 1st metatarsal-phalangeal artic ulation. Heterogeneous irregularity of the distal soft tissues of the 3rd digit with possible soft tissue defect. No definite bony destruction sanford ntified. Mild degenerative changes in the midfoot. No other soft tissue defect. No acute bony fracture dislocation. LEFT: Diffuse soft ti ssue edema is more prominent than the left foot. Diffuse arterial wall ca lcifications are demonstrated. Severe degenerative changes with sclerosis , osteophytes and subchondral cystic changes within the 1st partial metata rsal articulation. Heterogeneous sclerosis also identified in the proxima l phalanges of the 2nd and 3rd digits. Soft tissue edema involves the 4th digit. No definite bony destruction. No radiographic evidence for osteo myelitis at this time. There is flattening of the plantar arch with moder ate degenerative changes in the midfoot. IMPRESSION: 1. Diffuse edema throughout the right foot with degenerative changes. Possible soft tissue defect involving the distal 3rd digit. No rad iographic evidence for osteomyelitis within the right foot. 2. Diffuse edema throughout the left foot appears more prominent. Degenerative annalisa nges throughout the left foot are also more prominent with flattening of the plantar arch. No radiographic evidence for osteomyelitis in the le ft foot. SL: 03 at 1342 Reported and signed by: Angelica Gonzalez PAGE 1 Signed Report (CONT INUED) [place]: St: UNK--- Na me: MARCO A ROBLES [facility] : 1 Age/S: 44/M [address] [place] [address] Blvd Unit #: [id number] Loc: [place] [address] Phys: Corbin Call DO Acct: [id number] Dis Da te: Status: UNK PHONE #: Exam Date: 06/06/2015 133 FAX #: Reason: DFU, POSS OSTEO EXAMS: CPT CODE: [id number] XR FOOT 3 [place] [address] <Continued> CC: Technologist: OLIVIA Mcdonald) Trnrupert Date/Time/By: 06/06/2015 (1342) : By: [email or web address] Orig Print D/T: S: 06/06/2015 (8126) PAGE 2 Signed Report - XR CHEST 1 [id number] 13:38:00 [place]: St: UNK Name: MARCO A VIGIL [facility] : [birth year] Age/S: 44/M [address] [place] [address] Unit #: [id number] Loc: [place] [address] Phys: Matthew Call DO Acct: [id number] Dis Date: Status: UNK PHONE #: [phone] Exam Date: 06/06/2015 1335 FAX #: [phone] Reason: WEAKNESS EXAMS: CPT CODE: [id number] XR CHEST 1 V 20074 1 VIEW CXR. PORTABLE EXAM 1:17 PM HISTORY: Weakness. Diabetic foot ulcer. CO MPARISON: None. The heart, lungs and mediastinum are normal for po rtable technique. IMPRESSION: Normal exam. END OF IMPRESSION SL: 200 at 1338 Reported and signed by: Oliverio Luis M.D. CC: Tech nologist: OLIVIA Mcdonald) Melida Date/Ti me/By: 06/06/2015 (9619) : By: Radha Orig Print D/T: S: 06/06/2015 (9928) PAGE 1 Signed Report - XR CHEST 1 [id number] 13:38:00 [place]: St: YOVANY Name: MARCO A VIGIL ADIL[facility] [place] : [birth year] Age/S: 44/M [address] [place] [address] Unit #: [id number] Loc: [place] [address] Phys: Matthew Call DO Acct: [id number] Dis Date: Status: UNK PHONE #: [phone] Exam Date: 06/06/2015 1335 FAX #: [phone] Reason: WEAKNESS EXAMS: CPT CODE: [id number] XR CHEST 1 V 85460 1 VIEW CXR. PORTABLE EXAM 1:17 PM HISTORY: Weakness. Diabetic foot ulcer. CO MPARISON: None. The heart, lungs and mediastinum are normal for po rtable technique. IMPRESSION: Normal exam. END OF IMPRESSION SL: 200 at 1332 Reported and signed by: Oliverio Luis M.D. CC: Tech nologist: RT Taamra(R) Trnscrd Date/Ti me/By: 06/06/2015 (2174) : By: Radha Orig Print D/T: S: 06/06/2015 (3571) PAGE 1 Signed Report - US RETRO [id number] 16:34:00 Name: MARCO A ROBLES [facility] : 1970 Age/S: 42 / M [address] [place] [address] Unit #: [id number] Loc: [place] [address] Phys: Raheem Osuna MD Acct: [id number] Di s Date: Status: UNK PHONE #: Exam Date: 08/26/2013 1630 FAX #: Reason: ARF EXAMS: CPT CODE: [id number] US RETRO LTD 06497 Bilateral renal ultrasoun d 08/26/2013. HISTORY: Acute renal failure FINDING S: The right kidney measures 12.3 cm in length and contains a 19 mm cortic al thickness. The left kidney measures 13.0 cm in length and contains a 1 7 mm cortical thickness. No hydronephrosis or renal stones are present. No cortical cyst or mass is present. No increased renal cortical echogeni city is present. There is incomplete distention of the urinary bladder. IMPRESSION: No renal abnormality identified. SL : 01 at 1634 Reported and signed by: Cole Gant M.D. CC: Lupis Osuna MD Technologist: Melia Vargas RDMS(Catina)(OB)(RVT) Trnscb Date/Time: 08/26/2013 (163) terri [email or web address] Orig Print D/T: S: 08/26/2013 (163) Probe: PAGE 1 Signed Report - US RETRO [id number] 16:34:00 Name: MARCO A ROBLES [facility] : 1970 Age/S: 42 / M [address] [place] [address] Unit #: [id number] Loc: [place] [address] Phys: Raheem Osuna MD Acct: [id number] Dis Date: Status: UNK PHONE #: [phone] Exam Date: 08/26/20131629 FAX #: [phone] Reason: ARF EXAMS: CPT CODE: [id number] US RETRO LTD 59463 Bilateral renal ultrasound 08/26/2013. HISTORY: Acute renal failure FINDINGS: The right kidney measures 12.3 cm in length and contains a 19 mm cortical thickness. The left kidney measures 13.0 cm in length and contains a 17 mm cortical thickness. No hydronephrosis or renal stones are present. No cortical cyst or mass is present. No increased renal cortical echogenicity is present. There is incomplete distention of the urinary bladder. IMPRESSION: No renal abnormality identified. SL: 01 at 1634 Reported and signed by: Cole Gant M.D. CC: Raheem Osuna MD Technologist: BART Christensen)(OB)(RVT) Trnutb Date/Time: 08/26/2013 (163) terri [email or web address] Orig Print D/T: S: 08/26/2013 (163) Probe: PAGE 1 Signed Report - MRI LOW EXT W/O CONT [id number] 11:05:00 [place]: St: UNK Name: MARCO A VIGIL [facility] : [birth year] Age/S: 42/M [address] [place] [address] Unit #: [id number] Loc: [place] [address] Phys: Joey Georgehemanth Santos Acct: [id number] Dis Date: Status: UNK PHONE #: [phone] Exam Date: 08/25/20132120 FAX #: [phone] Reason: OM? EXAMS: CPT CODE: [id number] MRI LOW EXT W/[place] T 57393 MRI LEFT FOOT WITHOUT CONTRAST: HISTORY: Plantar soft tissue ulcer, clinical concern for osteo myelitis. COMPARISON: Left foot x-ray 08/22/2013. FI NDINGS: Multiplanar multisequence MRI of the left foot was performed witho ut intravenous or intra-articular gadolinium based contrast. Large deep soft tissue ulcer/defect is noted at the medial plantar aspect of th e 2nd toe extending to abut the 2nd flexor digitorum tendon. Serpiginous t hick wall phlegmonous change is also noted extending laterally along the p lantar soft tissue of the 2nd toe, extending to the 2nd web space and abut ting the 3rd flexor digitorum tendon. Shallow soft tissue ulcer is also s uspected at the level of the 2nd and 3rd metatarsal heads. No evidence of drainable fluid collection to suggest abscess. No evidence o f cortical destruction, periostitis/periosteal edema or bone marrow infilt ration to suggest osteomyelitis. No evidence of intramuscular abscess. There is minimal spurring of the 1st metatarsophalangeal joint. All other visualized joint spaces are well preserved. No joint effusion. IMPRESSION: Plantar left forefoot soft tissue ulcer and phlegmonous change without evidence of abscess. No evidence of osteomyelitis or septic arthritis. SL: 01 at 1105 Reported and signed by: Enzo Smith M.D. CC: Technologist: RT Patricia(R)( CT) Trnscrd Date/Time/By: 08/26/2013 (3227) : By: Dieudonne/PennieVGFelipeg Print D/T: S: 08/26/2013 (2946) PAGE 1 Signed Report - MRI LOW EXT W/O CONT [id number] 11:05:00 [place]: St: UNK Name: MARCO A VIGIL [facility] : [birth year] Age/S: 42/M [address] [place] [address] Unit #: [id number] Loc: [place] [address] Phys: Joey George Acct: [id number] Dis Date: Status: UNK PHONE #: [phone] Exam Date: 08/25/20132120 FAX #: [phone] Reason: OM? EXAMS: CPT CODE: [id number] MRI LOW EXT W/O CONT L T 52550 MRI LEFT FOOT WITHOUT CONTRAST: HISTORY: Plantar soft tissue ulcer, clinical concern for osteo myelitis. COMPARISON: Left foot x-ray 08/22/2013. FI NDINGS: Multiplanar multisequence MRI of the left foot was performed witho ut intravenous or intra-articular gadolinium based contrast. Large deep soft tissue ulcer/defect is noted at the medial plantar aspect of th e 2nd toe extending to abut the 2nd flexor digitorum tendon. Serpiginous t hick wall phlegmonous change is also noted extending laterally along the p lantar soft tissue of the 2nd toe, extending to the 2nd web space and abut ting the 3rd flexor digitorum tendon. Shallow soft tissue ulcer is also s uspected at the level of the 2nd and 3rd metatarsal heads. No evidence of drainable fluid collection to suggest abscess. No evidence o f cortical destruction, periostitis/periosteal edema or bone marrow infilt ration to suggest osteomyelitis. No evidence of intramuscular abscess. There is minimal spurring of the 1st metatarsophalangeal joint. All other visualized joint spaces are well preserved. No joint effusion. IMPRESSION: Plantar left forefoot soft tissue ulcer and phlegmonous change without evidence of abscess. No evidence of osteomyelitis or septic arthritis. SL: 01 at 1105 Reported and signed by: Enzo Smith M.D. CC: Technologist: RT Patricia(Elizabeth)( CT) Trnscrd Date/Time/By: 08/26/2013 (8655) : By: ShaJ/PennieVGOrig Print D/T: S: 08/26/2013 (7442) PAGE 1 Signed Report - DOP ART CONTACT LENS FITTER LEVEL [id number] 16:51:00 Name: MARCO A ROBLES [facility] : 1970 Age/S: 42 / M [address] [place] [address] Blvd Unit #: [id number] Loc: [place] [address] Phys: Anthony Trent DPM Acct: [id number] Dis Date: Status: UNK PHONE #: [phone] Exam Date: 08/24/2013 1633 FAX #: [phone] Reason: R/O PVD EXAMS: CPT CODE: [id number] DOP ART CONTACT LENS FITTER LEVEL MOIRA 71656 Doppler arterial evaluation of the legs: HISTORY: Left foot cellulitis and ulceration. The right ankle-brachial index is 1.7 and left ankle-brachial index is 1.3 (normal greater than 1.0). Doppler arterial waveforms are normal bilaterally with strong triphasic waveforms from the common femoral vessels to the ankle vessels. IMPRESSION: 1. Normal Doppler arterial ultrasound of the legs. SL: at 8400 Reported and signed by: Facundo Yuen M.D. CC: Anthony Trent DPM Technologist: Courtney Ngo RDMS(AB) Trnscb Date/Time: 08/24/2013 (1650) [email or web address] Orig Print D/T: S: 08/24/2013 (1653) Probe: PAGE 1 Signed Report - DOP ART CONTACT LENS FITTER LEVEL [id number] 16:51:00 Name: MARCO A ROBLES [facility] : 1970 Age/S: 42 / M [address] [place] [address] Bl Unit #: [id number] Loc: [place] [address] Phys: Anthony Trent DPM Acct: [id number] Dis Date: Status: UNK PHONE #: [phone] Exam Date: 08/24/2013 1633 FAX #: [phone] Reason: R/O PVD EXAMS: CPT CODE: [id number] DOP ART CONTACT LENS FITTER LEVEL [place] 01348 Doppler arterial evaluation of the legs: HISTORY: Left foot cellulitis and ulceration. The right ankle-brachial index is 1.7 and left ankle-brachial index is 1.3 (normal greater than 1.0). Doppler arterial waveforms are normal bilaterally with strong triphasic waveforms from the common femoral vessels to the ankle vessels. IMPRESSION: 1. Normal Doppler arterial ultrasound of the legs. SL:01 at 1651 Reported and signed by: Facundo Yuen M.D. CC: Anthony Trent DPM Technologist: Courtney Ngo RDMS() Trnscb Date/Time: 08/24/2013 (1650) Kika Orig Print D/T: S: 08/24/2013 (1653) Probe: PAGE 1 Signed Report - XR FOOT 3 + V [id number] 15:13:00 FAX: Marvin Mcfadden [phone] [place]: GE[place] St: [place]OV[place] Name: MARCO A VIGIL [facility] : [birth year] Age/S: 42/M [address] [place] [address] Unit #: [id number] Loc: [place] [address] Phys: Marvin Ross Acct: [id number] Dis Date: Status: UNK PHONE #: [phone] Exam Date: 08/22/2013 1457 FAX #: [phone] Reason: pain redness EXAMS: CPT CODE: [id number] XR FOOT 3 + [place] [address]690 Left foot series 08/22/2013 at 145 6 hours. Clinical history: Pain and redness. COMPARI SON STUDIES: None. FINDINGS: 3 views of the left foot were obtaine d showing mild to moderate dorsal soft tissue swelling without periosteal reaction or bone destruction. No fracture, subluxation or avascular necro sis is seen. No radiopaque foreign body identified. No soft tissue air. IMPRESSION: 1. Dorsal soft tissue edema/cellulitis of t he left foot. No acute osseous abnormality. SL 01 at 7543 Repo rted and signed by: Silvio Zamudio M.D. CC: Marvin VIGIL Technologist: Elizabeth Bolden(Elizabeth) Trnscrd Date/Time/By: 08/22/2013 (7392) : By: PennieVGJ/PennieVGOrig Print D/T: S: 08/22/2013 (3008) PAGE 1 Signed Report - XR FOOT 3 + V [id number] 15:13:00 FAX: Marvin Mcfadden [phone] [place]: St: UNK Name: MARCO A VIGIL ADIL[facility] : [birth year] Age/S: 42/M [address] [place] [address] Unit #: [id number] Loc: [place] [address] Phys: Marvin Ross Acct: [id number] Dis Date: Status: UNK PHONE #: [phone] Exam Date: 08/22/2013 1457 FAX #: [phone] Reason: pain redness EXAMS: CPT CODE: [id number] XR FOOT 3 + [place] [address] Left foot series 08/22/2013 at 145 6 hours. Clinical history: Pain and redness. COMPARI SON STUDIES: None. FINDINGS: 3 views of the left foot were obtaine d showing mild to moderate dorsal soft tissue swelling without periosteal reaction or bone destruction. No fracture, subluxation or avascular necro sis is seen. No radiopaque foreign body identified. No soft tissue air. IMPRESSION: 1. Dorsal soft tissue edema/cellulitis of t he left foot. No acute osseous abnormality. SL 01 at 1513 Repo rted and signed by: Silvio Zamudio M.D. CC: Marvin VIGIL Technologist: Elizabeth Bolden(Elizabeth) Trnscrd Date/Time/By: 08/22/2013 (3337) : By: PennieVGJ/PennieVGOrig Print D/T: S: 08/22/2013 (9646) PAGE 1 Signed Report - XR CHEST 1 [id number] 09:24:00 [place]: St: [place] Name: MARCO A VIGIL [facility] [place] : [birth year] Age/S: 40/M [address] [place] [address] Unit #: [id number] Loc: [place] [address] Phys: Bernardo Zhou MD Acct: [id number] Dis Date: Status: [employer] PHONE #: [phone] Exam Date: 07/08/2011857 FAX #: [phone] Reason: CHEST PAIN EXAMS: CPT CODE: [id number] XR CHEST 1 V 49030 Chest radiograph one view at 0856 hours. CLINICAL HISTORY: Chest pain, congestion and diff iculty breathing. Comparison studies: None. FINDINGS : One view of the chest was obtained. The lungs are clear without edema or consolidation. Minimal lingular atelectasis or secretions are noted . There are no pleural effusions. The cardiac silhouette is not enlarged. The visualized skeleton is grossly unremarkable. IMPRESSION: 1. No acute findings. at 0932 Reported and signed by: Silvio Zamudio M.D. CC: Technologist: OLIVIA Turner) Trnrupert Santos ate/Time/By: 07/08/2011 (0932) : By: [email or web address] Orig Print D/T: S: 06/11 (0927) PAGE 1 Signed Repor t - XR CHEST 1 [id number] 09:24:00 [place]: St: [place] Name: MARCO A VIGIL [facility] : [birth year] Age/S: 40/M [address] [place] [address] Unit #: [id number] Loc: [place] [address] Phys: Bernardo Zhou MD Acct: [id number] Dis Date: Status: [employer] PHONE #: [phone] Exam Date: 07/08/2011 0858 FAX #: [phone] Reason: CHEST PAIN EXAMS: CPT CODE: [id number] XR CHEST 1 V 72624 Chest radiograph one view 1 at 0856 hours. CLINICAL HISTORY: Chest pain, congestion and diff iculty breathing. Comparison studies: None. FINDINGS : One view of the chest was obtained. The lungs are clear without edema or consolidation. Minimal lingular atelectasis or secretions are noted . There are no pleural effusions. The cardiac silhouette is not enlarged. The visualized skeleton is grossly unremarkable. IMPRESSION: 1. No acute findings. at 0932 Reported and signed by: Silvio Zamudio M.D. CC: Technologist: OLIVIA Turner) Melida Santos ate/Time/By: 07/08/2011 (931) : By: [email or web address] Orig Print D/T: S: 06/11 (0989) PAGE 1 Signed Repor t - CT ABDOMEN W/[id number] 15:07:00 Name: MARCO A ROBLES [facility] : 1970 Age/S: 38 / M [address] [place] [address] Bl Unit #: [id number] Loc: [place] [address] Phys: Kurtis Smith Acct: [id number] Di s Date: Status: UNK PHONE #: Exam Date: 05/08/2009 0539 FAX #: Reason: large abd abscess EXAMS: CPT CODE: [id number] CT ABDOMEN W/ CONTRAST [id number] PELVIS W/CONTRAST 31010 CT abdomen and pelvis with contrast 05/08/2009. HISTORY: Large abdominal abscess. Pancreatitis. PROCEDURE: Multiple axial images from the lung bases through the pubic sepsis were obtained with oral and intravenous contrast. FIND INGS: Lung bases are clear. No acute or aggressive bony abnormality is pre sent. There are degenerative changes in the visualized spine. There is a n odular appearance of the liver which may represent cirrhosis and correct c linical setting. No contour deforming hepatic mass is present. The gallbla dder is distended. No calcified gallstones are present. The spleen, pancre as, kidneys, adrenal glands, aorta, and small bowel appear normal. No free air is identified within the peritoneum. No fluid collections are identif ied. No evidence of obstruction is present. The appendix has normal calibe r and fills with contrast. 2.1 cm right portal node is present. In the pelvis, the urinary bladder is distended and grossly unremarkab le. Prostate is normal size. No free fluid is noted. No diverticular disea se is present. No adenopathy is present. In the anterolateral aspect of th e right lower abdomen and right anterior pelvic reid, there is a large ab scess measuring 15.3 x 6.6 x 5.9 cm. A moderate amount of gas is present w ithin the abscess. Increased number of lymph nodes in the right inguinal r egion are noted suggestive of reactive adenopathy. No enlarged lymph nodes are identified in this region. No left inguinal adenopathy is present. IMPRESSION: 1. 15.3 cm right anterolateral abdominal and p elvic wall abscess. 2. 2.1 cm right portal node. Follow-up is recommende d. 3. Findings compatible with cirrhosis with a nodular hepatic surface. Preliminary report was faxed by the radiologist conference translator. at 1510 Reported and signed by: Cole Gant M.D. PAGE 1 Si gned Report (CONTINUED) Name: MARCO A ROBLES [facility] : 1970 Age/S: 38 / M [address] [place] [address] Unit #: [id number] Loc: [place] [address] Phys: Johanna Smith Acct: [id number] Dis Date: Status: UNK PHONE #: [phone] Exam Date: 05/08/2009 0539 FAX #: [phone] Reason: large abd abscess EXAMS: CPT CODE: [id number] CT ABDOMEN W/CONTRAST [id number] PELVIS W/CONTRAST 927[address] <Continued> CC: Johanna VIGIL Technologist:Michael Martínez RT(R)(CT) CTDI: DLP: Trnscb Date/Time: 05/08/2009 (1510) [email or web address] Orig Print D/T: S: 05/08/2009 (4154) PAGE 2 Signed Report - CT PELVIS W/CONTRAST 2009-05-08 15:07:00 Name: MARCO A ROBLES [facility] Lottie Garcia : 1970 Age/S: 38 / M [address] [place] [address] Unit #: [id number] Loc: [place] [address] Phys: Johanna Smith Acct: [id number] Dis Date: Status: UNK PHONE #: [phone] Exam Date: 05/08/2009 0539 FAX #: [phone] Reason: large abd abscess EXAMS: CPT CODE: [id number] CT ABDOMEN W/CONTRAST [id number] PELVIS W/CONTRAST [address] CT abdomen and pelvis with contrast 05/08/2009. HISTORY: Large abdominal abscess. Pancreatitis. PROCEDURE: Multiple axial images from the lung bases through the pubic sepsis were obtained with oral and intravenous contrast. FINDINGS: Lung bases are clear. No acute or aggressive bony abnormality is present. There are degenerative changes in the visualized spine. There is a nodular appearance of the liver which may represent cirrhosis and correct clinical setting. No contour deforming hepatic mass is present. The gallbladder is distended. No calcified gallstones are present. The spleen, pancreas, kidneys, adrenal glands, aorta, and small bowel appear normal. No free air is identified within the peritoneum. No fluid collections are identified. No evidence of obstruction is present. The appendix has normal caliber and fills with contrast. 2.1 cm right portal node is present. In the pelvis, the urinary bladder is distended and grossly unremarkable. Prostate is normal size. No free fluid is noted. No diverticular disease is present. No adenopathy is present. In the anterolateral aspect of the right lower abdomen and right anterior pelvic reid, there is a large abscess measuring 15.3 x 6.6 x 5.9 cm. A moderate amount of gas is present within the abscess. Increased number of lymph nodes in the right inguinal region are noted suggestive of reactive adenopathy. No enlarged lymph nodes are identified in this region. No left inguinal adenopathy is present. IMPRESSION: 1. 15.3 cm right anterolateral abdominal and pelvic wall abscess. 2. 2.1 cm right portal node. Follow-up is recommended. 3. Findings compatible with cirrhosis with a nodular hepatic surface. Preliminary report was faxed by the radiologist conference translator. at 1510 Reported and signed by: Cole Gant M.D. PAGE 1 Signed Report (CONTINUED) Name: MARCO A ROBLES [facility] : 1970 Age/S: 38 / M [address] [place] [address] Unit #: [id number] Loc: [place] [address] Phys: Johanna Smith Acct: [id number] Dis Date: Status: UNK PHONE #: [phone] Exam Date: 05/08/2009538 FAX #: [phone] Reason: large abd abscess EXAMS: CPT CODE: [id number] CT ABDOMEN W/CONTRAST [id number] PELVIS W/CONTRAST 82774 <Continued> CC: Johanna VIGIL Technologist:Michael Martínez RT(R)(CT) CTDI: DLP: Trnscb Date/Time: 05/08/2009 (151) [email or web address] Orig Print D/T: S: 05/08/2009 (151) PAGE 2 Signed Report - CT ABDOMEN W/[id number] 15:07:00 Name: MARCO A ROBLES [facility] : 1970 Age/S: 38 / M [address] [place] [address] Unit #: [id number] Loc: [place] [address] Phys: Johanna Smith Acct: [id number] Dis Date: Status: UNK PHONE #: [phone] Exam Date: 05/08/2009 05 FAX #: [phone] Reason: large abd abscess EXAMS: CPT CODE: [id number] CT ABDOMEN W/CONTRAST [id number] PELVIS W/CONTRAST [address] CT abdomen and pelvis with contrast 05/08/2009. HISTORY: Large abdominal abscess. Pancreatitis. PROCEDURE: Multiple axial images from the lung bases through the pubic sepsis were obtained with oral and intravenous contrast. FINDINGS: Lung bases are clear. No acute or aggressive bony abnormality is present. There are degenerative changes in the visualized spine. There is a nodular appearance of the liver which may represent cirrhosis and correct clinical setting. No contour deforming hepatic mass is present. The gallbladder is distended. No calcified gallstones are present. The spleen, pancreas, kidneys, adrenal glands, aorta, and small bowel appear normal. No free air is identified within the peritoneum. No fluid collections are identified. No evidence of obstruction is present. The appendix has normal caliber and fills with contrast. 2.1 cm right portal node is present. In the pelvis, the urinary bladder is distended and grossly unremarkable. Prostate is normal size. No free fluid is noted. No diverticular disease is present. No adenopathy is present. In the anterolateral aspect of the right lower abdomen and right anterior pelvic reid, there is a large abscess measuring 15.3 x 6.6 x 5.9 cm. A moderate amount of gas is present within the abscess. Increased number of lymph nodes in the right inguinal region are noted suggestive of reactive adenopathy. No enlarged lymph nodes are identified in this region. No left inguinal adenopathy is present. IMPRESSION: 1. 15.3 cm right anterolateral abdominal and pelvic wall abscess. 2. 2.1 cm right portal node. Follow-up is recommended. 3. Findings compatible with cirrhosis with a nodular hepatic surface. Preliminary report was faxed by the radiologist conference translator. at 1510 Reported and signed by: Cole Gant M.D. PAGE 1 Signed Report (CONTINUED) Name: MARCO A ROBLES [facility] : 1970 Age/S: 38 / M [address] [place] [address] Bl Unit #: [id number] Loc: [place] [address] Phys: Johanna Smith Acct: [id number] Dis Date: Status: UNK PHONE #: [phone] Exam Date: 05/08/2009 0539 FAX #: [phone] Reason: large abd abscess EXAMS: CPT CODE: [id number] CT ABDOMEN W/CONTRAST [id number] PELVIS W/CONTRAST 17293 <Continued> CC: Johanna VIGIL Technologist:Michael Martínez, RT(R)(CT) CTDI: DLP: Trnscb Date/Time: 05/08/2009 (151) [email or web address] Orig Print D/T: S: 05/08/2009 (9942) PAGE 2 Signed Report - CT PELVIS W/[id number] 15:07:00 Name: MARCO A ROBLES [facility] : 1970 Age/S: 38 / M [address] [place] [address] Unit #: [id number] Loc: [place] [address] Phys: Johanna Smith Acct: [id number] Dis Date: Status: UNK PHONE #: [phone] Exam Date: 05/08/2009538 FAX #: [phone] Reason: large abd abscess EXAMS: CPT CODE: [id number] CT ABDOMEN W/CONTRAST [id number] PELVIS W/CONTRAST [address] CT abdomen and pelvis with contrast 05/08/2009. HISTORY: Large abdominal abscess. Pancreatitis. PROCEDURE: Multiple axial images from the lung bases through the pubic sepsis were obtained with oral and intravenous contrast. FINDINGS: Lung bases are clear. No acute or aggressive bony abnormality is present. There are degenerative changes in the visualized spine. There is a nodular appearance of the liver which may represent cirrhosis and correct clinical setting. No contour deforming hepatic mass is present. The gallbladder is distended. No calcified gallstones are present. The spleen, pancreas, kidneys, adrenal glands, aorta, and small bowel appear normal. No free air is identified within the peritoneum. No fluid collections are identified. No evidence of obstruction is present. The appendix has normal caliber and fills with contrast. 2.1 cm right portal node is present. In the pelvis, the urinary bladder is distended and grossly unremarkable. Prostate is normal size. No free fluid is noted. No diverticular disease is present. No adenopathy is present. In the anterolateral aspect of the right lower abdomen and right anterior pelvic reid, there is a large abscess measuring 15.3 x 6.6 x 5.9 cm. A moderate amount of gas is present within the abscess. Increased number of lymph nodes in the right inguinal region are noted suggestive of reactive adenopathy. No enlarged lymph nodes are identified in this region. No left inguinal adenopathy is present. IMPRESSION: 1. 15.3 cm right anterolateral abdominal and pelvic wall abscess. 2. 2.1 cm right portal node. Follow-up is recommended. 3. Findings compatible with cirrhosis with a nodular hepatic surface. Preliminary report was faxed by the radiologist conference translator. at 1510 Reported and signed by: Cole Gant M.D. PAGE 1 Signed Report (CONTINUED) Name: MARCO A ROBLES [facility] : 1970 Age/S: 38 / M [address] [place] [address] Unit #: [id number] Loc: [place] [address] Phys: Johanna Smith Acct: [id number] Dis Date: Status: UNK PHONE #: [phone] Exam Date: 05/08/2009 0539 FAX #: [phone] Reason: large abd abscess EXAMS: CPT CODE: [id number] CT ABDOMEN W/CONTRAST [id number] PELVIS W/CONTRAST 65658 <Continued> CC: Johanna VIGIL Technologist:RT Brittany(R)(CT) CTDI: DLP: Trnscb Date/Time: 05/08/2009 (1510) [email or web address] Orig Print D/T: S: 05/08/2009 (1511) PAGE 2 Signed Report - CT CORONAL/SAG/OBL/3D RECON 2003-03-10 18:14:00 Name: MARCO A ROBLES [facility] : 1970 Age/S: 32 / M [address] [place] [address] Unit #: [id number] Loc: [place] [address] Phys: Bernardo Zhou MD Acct: [id number] Dis Date: Status: UNK PHONE #: [phone] Exam Date: 03/10/2003 1800 FAX #: [phone] Reason: ROOM 12 EXAMS: CPT CODE: [id number] CT ORBITS W/CON [id number] CORONAL/SAG/OBL/[address]D REC[address] 36625 [address] scan of the orbits The patient has a history of prior drainage of left temporal cyst 2 days ago. Technique: The study was performed with 1.25 mm coronal images through the left anterior- lateral face through the left temporal fossa. In addition, 2.5 mm axial through the face were obtained. The study was performed with intravenous contrast enhancement. Findings: No fluid collection or mass is seen. There is mild cutaneous and subcutaneous left jainism edema. Inferiorly at the level of the maxilla a small left anterior triangle node possibly a reactive node is seen 9.9 mm in diameter. Impression: No abscess is seen. at 1841 Reported and signed by: Zeyad Koenig M.D. CC: Bernardo Zhou Technologist:Tavo Myers CTDI: DLP: Trnscb Date/Time: 03/10/2003 (1817) RAD.VR/[email or web address] Orig Print D/T: S: 03/10/2003 (1840) PAGE 1 Signed Report - CT CORONAL/SAG/OBL/3D RECON 2003-03-10 18:14:00 Name: MARCO A ROBLES [facility] : 1970 Age/S: 32 / M [address] [place] [address] Unit #: [id number] Loc: [place] [address] Phys: Bernardo Zhou MD Acct: [id number] Dis Date: Status: UNK PHONE #: [phone] Exam Date: 03/10/2003 1800 FAX #: [phone] Reason: ROOM 12 EXAMS: CPT CODE: [id number] CT ORBITS W/CON [id number] CORONAL/SAG/OBL/3D RECON 67112 CT scan of the orbits The patient has a history of prior drainage of left temporal cyst 2 days ago. Technique: The study was performed with 1.25 mm coronal images through the left anterior- lateral face through the left temporal fossa. In addition, 2.5 mm axial through the face were obtained. The study was performed with intravenous contrast enhancement. Findings: No fluid collection or mass is seen. There is mild cutaneous and subcutaneous left jainism edema. Inferiorly at the level of the maxilla a small left anterior triangle node possibly a reactive node is seen 9.9 mm in diameter. Impression: No abscess is seen. at 1841 Reported and signed by: Zeyad Koenig M.D. CC: Bernardo Zhou Technologist:Tavo Myers CTDI: DLP: Trnscb Date/Time: 03/10/2003 (1817) RADSHARMILA/[email or web address] Orig Print D/T: S: 03/10/2003 (1840) PAGE 1 Signed Report - CT ORBITS [id number] 18:14:00 Name: MARCO A ROBLES [facility] : 1970 Age/S: 32 / M [address] [place] [address] Unit #: [id number] Loc: [place] [address] Phys: Jair Zhou MD Acct: [id number] Di s Date: Status: UNK PHONE #: Exam Date: 03/10/2003 1800 FAX #: Reason: ROOM 12 EXAMS: CPT CODE: [id number] CT ORBITS W/[place] [id number] CORONAL/SAG/OBL/3D R ECON 05709 CT scan of the orbits The patient has a history of prior drainage of left temporal cyst 2 days ago. Technique: The study was performed with 1.25 mm coronal images through the left anterior-lateral face through the left t emporal fossa. In addition, 2.5 mm axial through the face were obtained. The study was performed with intravenous contrast enhancement. Findings: No fluid collection or mass is seen. There is mild cutaneous and subcutaneous left jainism edema. Inferiorly at the level of the maxilla a small left anterior triangle node possibly a reactive no de is seen 9.9 mm in diameter. Impression: No abscess is seen. at 1841 Reported and signed by: Zeyad Koenig M.D. CC: Zi Zhou Technologist:Tavo chicas CTDI: DLP: Trnscb Date/Time: 03/10/2003 (1817) RA TEMPLE/[email or web address] Orig Print D/T: S: 03/10/2003 (184) PAGE 1 Signed Report - CT ORBITS W/[id number] 18:14:00 Name: MARCO A ROBLES [facility] Lottie Garcia : 1970 Age/S: 32 / M [address] [place] [address] Unit #: [id number] Loc: [place] [address] Phys: Bernardo Zhou MD Acct: [id number] Dis Date: Status: UNK PHONE #: [phone] Exam Date: 03/10/2003 1800 FAX #: [phone] Reason: ROOM 12 EXAMS: CPT CODE: [id number] CT ORBITS W/CON [id number] CORONAL/SAG/OBL/3D RECON 70424 CT scan of the orbits The patient has a history of prior drainage of left temporal cyst 2 days ago. Technique: The study was performed with 1.25 mm coronal images through the left anterior-lateral face through the left temporal fossa. In addition, 2.5 mm axial through the face were obtained. The study was performed with intravenous contrast enhancement. Findings: No fluid collection or mass is seen. There is mild cutaneous and subcutaneous left jainism edema. Inferiorly at the level of the maxilla a small left anterior triangle node possibly a reactive node is seen 9.9 mm in diameter. Impression: No abscess is seen. at 1841 Reported and signed by: Zeyad Koenig M.D. CC: Bernardo Zhou Technologist:Tavo Myers CTDI: DLP: Trnscb Date/Time: 03/10/2003 (1817) RAD.VR/kojo.[email or web address] Orig Print D/T: S: 03/10/2003 (1840) PAGE 1 Signed Report
--- NOTE | 2020-06-10 23:08 | NUR ---
Pt reports he can't tolerate other pain medications d/t nausea, pt reports he could tolerated a medication at [facility] that started with a "D". Pt then calls sister on cellphone and both of them report to this RN on speaker that pt was taking Dilaudid and that is the only medication that helps with his pain. Pt reports he has tramadol at home, but "it doesn't do anything"
--- NOTE | 2020-06-10 23:19 | NUR ---
arcade game technician present to perform ultrasound of L leg for dvt r/o.
[2020-06-10] MEDS ORDERED: HYDROCODONE/APAP 10MG-325MG TAB ONE (23:31)
--- NOTE | 2020-06-11 01:05 | Diagnostic Imaging Report ---
X-ray pelvis 1 view and bilateral hips 2 views each HISTORY: Pain. COMPARISON: Abdominal CT 05/11/2020 FINDINGS: Some osseous structures are obscured by bowel contents Bones: No acute displaced fracture. Osseous alignment is within normal limits. Joints: The joint spaces are well-maintained. Mild degenerative changes in the hips. Soft tissues: Vascular calcifications. IMPRESSION: No acute radiographic abnormality. Mild degenerative changes in the hips. Signed by: Darell Orellana DO on 06/11/2020 1:02 AM
[2020-06-11] MEDS ORDERED: ULTRAM50 MG PO (01:13)
--- NOTE | 2020-06-11 01:35 | NUR ---
Preparing pt for DC to home, pt upset that no further interventions performed. Pt stated "I guess it's going to take for me to fall before they really do anything else for me". Pt also stated that this RN might as well tear up his prescription because the medication doesn't do anything and he has some at home. Encouraged pt to fill the prescription, DC education regarding COVID and pain given. Pt also reports he does not know how he will get to dialysis in the morning due to the pain.
[2020-06-11 01:49] VITALS: BP 142/69
== END 2020-06-11 01:35 | disposition home or self-care (01) ==
LOC: ER 22:06
DX: M79.89 Other specified soft tissue disorders (principal); I12.0 Hypertensive chronic kidney disease with stage 5 chronic kidney disease or end stage renal disease; E11.22 Type 2 diabetes mellitus with diabetic chronic kidney disease; N18.6 End stage renal disease; Z99.2 Dependence on renal dialysis; M25.552 Pain in left hip; M25.551 Pain in right hip; M54.9 Dorsalgia, unspecified; G89.29 Other chronic pain
CPT/HCPCS: 73523; 93971; 99284